=== PATIENT | female | born 1965 | race Two or more races ===

== ENCOUNTER 2021-05-21 02:55 | Inpatient (IN) ==
[2021-05-21] MEDS ORDERED: STAT IV Infusion **Titration per Protocol STA ×2 (02:59→04:54)
[2021-05-21] MEDS ORDERED: FUROSEMIDE 40 MG/4 ML VIAL IV STA (02:59)
[2021-05-21] MEDS ORDERED: NITROGLYCERIN/D5W 100MCG/ML 250 ML IV SCH ×2 (03:00→06:11)
[2021-05-21] MEDS ORDERED: NITROGLYCERIN/D5W 100 MCG/ML BTL ONE (03:01)
[2021-05-21] MEDS ORDERED: FUROSEMIDE 40 MG/4 ML VIAL IV ONE (03:02)
[2021-05-21 03:15] LABS: Hematocrit (blood only) 44.2 % (37-47); Hemoglobin 13.7 g/dL (12.0-16.0); Mean Corpuscular Hemoglobin 26.3 pg (25-34); Mean Platelet Volume 10.3 fL (7.4-10.4); Platelet Count 417 K/uL (130-400); RDW Coefficient of Variation 14.5 % (11.5-14.5); RDW Standard Deviation 44.9 fL (36.4-46.3); White Blood Count 21.85 K/uL (4.8-10.8)
[2021-05-21 03:32] LABS: Alanine Aminotransferase 36 U/L (12-78); Albumin Level 3.9 gm/dl (3.4-5.0); Aspartate Aminotransferase 36 U/L (15-37); BUN Creatinine Ratio 15.5 (10-20); Blood Urea Nitrogen 14 mg/dl (7-18); Calcium 8.9 mg/dl (8.5-10.1); Carbon Dioxide 27 mmol/L (21-32); Chloride 106 mmol/L (98-107); Est GFR (African American) 86.3 ml/min; Est GFR (Non-African American) 74.5 ml/min; Glucose 245 mg/dl (70-99); Magnesium 2.4 mg/dl (1.8-2.4); Potassium 3.7 mmol/L (3.5-5.1); Sodium 140 mmol/L (136-145)
[2021-05-21 03:38] LABS: Albumin Globulin Ratio 0.9 (0.9-2); Alkaline Phosphatase 136 U/L (45-117); Bilirubin,Total 0.2 mg/dl (0.2-1); Globulin 4.3 gm/dl (2.5-4.0); NT Pro B Type Natriuretic Pept 390 pg/ml (0-900); Total Protein 8.2 gm/dl (6.4-8.2); Troponin I 0.056 ng/ml (0-0.045)
[2021-05-21 03:47] LABS: ALC (manual) 10.18 K/uL (1.2-3.4); ANC (manual) 9.57 K/uL (1.4-6.5); Basophils % (manual) 0.9 %; Eosinophils % (manual) 0.9 %; Lymphocytes # (manual) 6.03 K/uL (1.2-3.4); Lymphocytes % (manual) 27.6 %; Metamyelocytes % (manual) 0.9 %; Monocytes # (manual) 1.51 K/uL (0.11-0.59); Monocytes % (manual) 6.9 %; Neutrophils # (manual) 9.57 K/uL (1.4-6.5); Neutrophils % (manual) 43.8 %; RBC Morphology Unremarkable; Reactive Lymphocytes # (manual) 4.15 K/uL
--- NOTE | 2021-05-21 03:47 | Emergency Department Note ---
History of Present Illness General Chief complaint: Shortness of Breath/Dyspnea Stated complaint: SOB Time Seen by Provider: 05/21/21 02:59 Source: family Mode of arrival: EMS Limitations: language barrier and clinical acuity History of Present Illness Provider complaint: respiratory distress Onset (ago): hour(s) Treatments prior to arrival: other This is a 55-year-old female presents emergency department via EMS in acute respiratory distress. EMS reports patient found to have significant distress and was initially 72% on room air. She was immediately placed on a nonrebreather and placed on the stretcher for transport. On arrival here patient still with significant distress and agitation, with diaphoresis, tachypnea, increased work of breathing, 87% on a nonrebreather at 15 L/min. Patient does not speak Danish and due to clinical acuity cannot speak at this time either, family at bedside provides some history. They state no history of asthma or smoking. No history of heart problems. No recent illness or fevers. They states she awoke abruptly approximately an hour ago with trouble breathing and he called 911. He does state she takes medication for high blood pressure and diabetes. He states she stopped taking her medications 3 days ago as she had itching in her hands and thought she was having an allergic reaction. He denies that anyone in their household has been ill recently. He states she has never had trouble breathing like this before. Pt seen during a time of high acuity and national emergency pandemic while wearing PPE. Home Medications Medication Instructions Recorded Confirmed Type atorvastatin 20 mg tablet 20 mg PO DAILY 10/22/20 05/21/21 History hydrochlorothiazide 25 mg tablet 25 mg PO DAILY 10/22/20 05/21/21 History losartan 25 mg tablet 25 mg PO DAILY 10/22/20 05/21/21 History meloxicam 7.5 mg tablet 7.5 mg PO DAILY PRN 10/22/20 05/21/21 History metformin 500 mg tablet 500 mg PO BIDM 10/22/20 05/21/21 History betamethasone dipropionate 0.05 % 1 applic TOPICAL BID #45 g 02/17/21 05/21/21 Rx topical ointment Allergies Allergy/AdvReac Type Severity Reaction Status Date / Time No Known Allergies Allergy Verified 05/21/21 03:07 Past Med/Surg History Social History (Reviewed 05/21/21 @ 07:16 by ADA Patrick Smoking Status: Never smoker Hx Alcohol Use: No Hx Substance Use: No Preferred Language: Obed Communication Tools: IPad Sr. Consultant Required: Yes marital status: Current Living Situation: Spouse current occupational status: unemployed Feels Safe at Home: Yes Safety Concerns: Feels Safe At This Time Review of Systems See HPI for pertinent positives & negatives. Other (clinical acuity) Physical Exam Vital Signs Vital Signs - 24 hr 05/21/21 02:55 05/21/21 03:09 05/21/21 03:10 Pulse Rate 153 H 150 H 146 H Respiratory Rate 46 H 42 H Respiratory Effort / Characteristics Labored Short of Breath Tripoding Respiratory Depth Deep Respiratory Pattern Blood Pressure 233/171 H 189/125 H 177/124 H Blood Pressure Mean 191 146 141 Blood Pressure Position Sitting Pulse Oximetry 87 L 92 92 Oxygen Delivery Method Non-rebreather BiPAP BiPAP Oxygen Flow Rate 15 15 Fraction of Inspired Oxygen 70 70 Sepsis Recent Fever Within 48 Hours No Sepsis New/Unexplained Change in Mental Status N/A Sepsis Action Taken by Nursing Physician Notified Fraction of Inspired Oxygen - Titration 70 Pulse Oximetry Post Tiitration 92 05/21/21 03:15 05/21/21 03:17 05/21/21 03:20 Pulse Rate 140 H 141 H Respiratory Rate 42 H Respiratory Effort / Characteristics Accessory Muscle Use Labored Tripoding Respiratory Depth Deep Respiratory Pattern Blood Pressure 159/115 H 147/112 H Blood Pressure Mean 129 123 Blood Pressure Position Pulse Oximetry 89 L 90 Oxygen Delivery Method BiPAP BiPAP Oxygen Flow Rate Fraction of Inspired Oxygen 70 70 Sepsis Recent Fever Within 48 Hours Sepsis New/Unexplained Change in Mental Status Sepsis Action Taken by Nursing Fraction of Inspired Oxygen - Titration Pulse Oximetry Post Tiitration 05/21/21 03:25 05/21/21 03:30 05/21/21 03:35 Pulse Rate 137 H 135 H 134 H Respiratory Rate 39 H 27 H 33 H Respiratory Effort / Characteristics Respiratory Depth Respiratory Pattern Blood Pressure 130/100 142/106 H 141/97 H Blood Pressure Mean 110 118 111 Blood Pressure Position Pulse Oximetry 91 93 94 Oxygen Delivery Method BiPAP BiPAP BiPAP Oxygen Flow Rate Fraction of Inspired Oxygen 70 70 70 Sepsis Recent Fever Within 48 Hours Sepsis New/Unexplained Change in Mental Status Sepsis Action Taken by Nursing Fraction of Inspired Oxygen - Titration Pulse Oximetry Post Tiitration 05/21/21 03:40 05/21/21 03:45 05/21/21 03:50 Pulse Rate 140 H 130 H 128 H Respiratory Rate 40 H 32 H 31 H Respiratory Effort / Characteristics Spontaneous Short of Breath Tripoding Respiratory Depth Shallow Respiratory Pattern Tachypnea Blood Pressure 134/100 147/95 H 133/88 Blood Pressure Mean 111 112 103 Blood Pressure Position Pulse Oximetry 91 96 95 Oxygen Delivery Method BiPAP BiPAP BiPAP Oxygen Flow Rate Fraction of Inspired Oxygen 70 70 70 Sepsis Recent Fever Within 48 Hours Sepsis New/Unexplained Change in Mental Status Sepsis Action Taken by Nursing Fraction of Inspired Oxygen - Titration Pulse Oximetry Post Tiitration 05/21/21 03:55 05/21/21 04:00 05/21/21 04:10 Pulse Rate 129 H 127 H 127 H Respiratory Rate 30 H 30 H 31 H Respiratory Effort / Characteristics Respiratory Depth Respiratory Pattern Blood Pressure 139/94 126/78 128/94 Blood Pressure Mean 109 94 105 Blood Pressure Position Pulse Oximetry 99 99 99 Oxygen Delivery Method BiPAP BiPAP BiPAP Oxygen Flow Rate Fraction of Inspired Oxygen 70 70 70 Sepsis Recent Fever Within 48 Hours Sepsis New/Unexplained Change in Mental Status Sepsis Action Taken by Nursing Fraction of Inspired Oxygen - Titration Pulse Oximetry Post Tiitration 05/21/21 04:15 05/21/21 04:20 05/21/21 04:25 Pulse Rate 125 H 121 H 121 H Respiratory Rate 26 H 28 H 24 Respiratory Effort / Characteristics Respiratory Depth Respiratory Pattern Blood Pressure 138/93 133/93 117/92 Blood Pressure Mean 108 106 100 Blood Pressure Position Pulse Oximetry 98 99 99 Oxygen Delivery Method BiPAP BiPAP BiPAP Oxygen Flow Rate Fraction of Inspired Oxygen 70 70 70 Sepsis Recent Fever Within 48 Hours Sepsis New/Unexplained Change in Mental Status Sepsis Action Taken by Nursing Fraction of Inspired Oxygen - Titration Pulse Oximetry Post Tiitration 05/21/21 04:30 05/21/21 04:35 05/21/21 04:40 Pulse Rate 120 H 123 H 122 H Respiratory Rate 26 H 30 H 26 H Respiratory Effort / Characteristics Spontaneous Respiratory Depth Normal Respiratory Pattern Tachypnea Blood Pressure 129/98 139/93 151/103 H Blood Pressure Mean 108 108 119 Blood Pressure Position Pulse Oximetry 99 97 96 Oxygen Delivery Method BiPAP BiPAP BiPAP Oxygen Flow Rate Fraction of Inspired Oxygen 70 40 40 Sepsis Recent Fever Within 48 Hours Sepsis New/Unexplained Change in Mental Status Sepsis Action Taken by Nursing Fraction of Inspired Oxygen - Titration Pulse Oximetry Post Tiitration 05/21/21 04:45 05/21/21 04:50 Pulse Rate 123 H 127 H Respiratory Rate 24 18 Respiratory Effort / Characteristics Respiratory Depth Respiratory Pattern Blood Pressure 141/97 H 154/100 H Blood Pressure Mean 111 118 Blood Pressure Position Pulse Oximetry 96 95 Oxygen Delivery Method BiPAP BiPAP Oxygen Flow Rate Fraction of Inspired Oxygen 40 40 Sepsis Recent Fever Within 48 Hours Sepsis New/Unexplained Change in Mental Status Sepsis Action Taken by Nursing Fraction of Inspired Oxygen - Titration Pulse Oximetry Post Tiitration GENERAL: alert, ill appearing, well nourished, severe distress, diaphoretic, pale, agitated, tripoding, holding the facemask of the NRB EYE EXAM: normal conjunctiva, PERRL and EOM's grossly intact OROPHARYNX: no exudate, no erythema, lips, buccal mucosa, and tongue normal and mucous membranes are moist NECK: supple, no nuchal rigidity, no adenopathy, non-tender LUNGS: Normal chest wall mechanics, bilateral rales throughout entire lung carson, significant increased work of breathing, tachypnea HEART: no murmurs, S1 normal and S2 normal, tachycardic in the 150s ABDOMEN: abdomen soft, non-tender, normo-active bowel sounds, no masses, no rebound or guarding. BACK: Back is symmetrical on inspection and there is no deformity, no midline tenderness, no CVA tenderness. SKIN: no rashes and no bruising UPPER EXTREMITIES: upper extremities are grossly normal. FROM, nml pulses b/l. LOWER EXTREMITIES: No pitting edema. FROM, nml pulses b/l. NEURO EXAM: Normal sensorium, cranial nerves II-XII grossly intact, nods and shakes head due to difficulty breathing, no gross weakness of arms, no gross weakness of legs. Gross sensation intact. Course Course 0305: RT called for BIPAP. Nitro drip added. 031: Pt started on BIPAP. Settings quickly titrated up to 16/8. FIO2 backed down from 100%. 0320: Pt starting to appear more comfortable, HR decreasing and BP improved since bipap and nitro gtt started. 0345: Discussed with Dr. Jones. 0352: Discussed with Dr. Mccoy. Per family at bedside translating, pt denies chest pain and states her breathing is improving. 0447: 40%, 12/6 on Bipap and pt more comfortable appearing. Administered Medications Acetaminophen (Acetaminophen 325 Mg Tab) 650 mg PO Q4H PRN PRN Reason: Headache Stop: 06/20/21 09:49 Last Admin: 05/21/21 21:38 Dose: 650 mg Documented by: [id number] Atorvastatin Calcium (Atorvastatin 40 Mg Tab) 80 mg PO DAILY [facility] Stop: 06/20/21 08:59 Last Admin: 05/21/21 09:13 Dose: 80 mg Documented by: [id number] Heparin Sodium/Dextrose (Heparin Sodium/Dextrose) 25,000 units in 500 mls @ 27 mls/hr IV .[id number] [facility]; Protocol Stop: 06/20/21 07:44 Last Admin: 05/22/21 04:17 Dose: 1,350 units/hr, 27 mls/hr Documented by: [id number] Cosigned by: [id number] Titration: 05/22/21 04:17 Dose: 1,350 units/hr, 27 mls/hr Documented by: [id number] Cosigned by: [id number] Titration: 05/21/21 18:59 Dose: 1,350 units/hr, 27 mls/hr Documented by: [id number] Cosigned by: [id number] Titration: 05/21/21 15:21 Dose: 1,350 units/hr, 27 mls/hr Documented by: [id number] Cosigned by: [id number] Admin: 05/21/21 09:15 Dose: 1,200 units/hr, 24 mls/hr Documented by: [id number] Cosigned by: [id number] Insulin Aspart (Insulin Aspart 100 Units/Ml 3 Ml Pen) 0 units SC Q6 [facility] Stop: 06/20/21 11:59 Last Admin: 05/22/21 06:43 Dose: Not Given Documented by: [id number] Cosigned by: [id number] Admin: 05/22/21 00:10 Dose: Not Given Documented by: [id number] Cosigned by: [id number] Admin: 05/21/21 18:20 Dose: Not Given Documented by: [id number] Cosigned by: [id number] Admin: 05/21/21 13:03 Dose: Not Given Documented by: [id number] Cosigned by: [id number] Losartan Potassium (Losartan Potassium 25 Mg Tab) 25 mg PO DAILY [facility] Stop: 06/20/21 08:59 Last Admin: 05/21/21 09:14 Dose: 25 mg Documented by: [id number] Metoprolol Tartrate (Metoprolol Tartrate 25 Mg Tab) 12.5 mg PO BID [facility] Stop: 06/20/21 12:14 Last Admin: 05/21/21 19:53 Dose: 12.5 mg Documented by: [id number] Admin: 05/21/21 13:02 Dose: 12.5 mg Documented by: [id number] Miscellaneous (Order Awaiting Action [Betamethasone Dipropionate 0.05 % Oint]) 1 ea N/A QS [facility] Stop: 06/20/21 07:59 Last Admin: 05/22/21 00:10 Dose: Not Given Documented by: [id number] Admin: 05/21/21 15:36 Dose: Not Given Documented by: [id number] Admin: 05/21/21 09:13 Dose: Not Given Documented by: [id number] Pantoprazole Sodium (Pantoprazole 40 Mg Tab) 40 mg PO QAM [facility] Stop: 06/20/21 08:59 Last Admin: 05/21/21 09:14 Dose: 40 mg Documented by: [id number] Discontinued Medications Aspirin (Aspirin Chew 324 Mg) 324 mg PO NOW STA Stop: 05/21/21 12:46 Last Admin: 05/21/21 13:03 Dose: 324 mg Documented by: [id number] Clopidogrel Bisulfate (Clopidogrel Bisulfate 300 Mg Tab) 300 mg PO NOW STA Stop: 05/21/21 17:30 Last Admin: 05/21/21 18:20 Dose: 300 mg Documented by: [id number] Furosemide (Furosemide 40 Mg/4 Ml Vial) 40 mg IV NOW STA Stop: 05/21/21 03:00 Last Admin: 05/21/21 03:05 Dose: 40 mg Documented by: [id number] Furosemide (Furosemide 40 Mg/4 Ml Vial) Confirm Administered Dose 40 mg IV .STK- MED ONE Stop: 05/21/21 03:03 Last Admin: 05/21/21 03:06 Dose: Not Given Documented by: [id number] Heparin Sodium (Porcine) (Heparin Sod (Porcine) 1000 Unit/Ml) 3,000 units IV NOW ONE Stop: 05/21/21 15:31 Last Admin: 05/21/21 15:36 Dose: 3,000 units Documented by: [id number] Cosigned by: [id number] Nitroglycerin/Dextrose (Nitroglycerin/D5w 100 Mcg/Ml) 250 mls @ 3 mls/hr IV .Q24H [facility]; Protocol Stop: 06/20/21 02:59 Last Titration: 05/21/21 10:18 Dose: 0 mcg/min, 0 mls/hr Documented by: [id number] Titration: 05/21/21 05:10 Dose: 0 mcg/min, 0 mls/hr Documented by: [id number] Titration: 05/21/21 04:47 Dose: 5 mcg/min, 3 mls/hr Documented by: [id number] Titration: 05/21/21 03:53 Dose: 10 mcg/min, 6 mls/hr Documented by: [id number] Titration: 05/21/21 03:11 Dose: 20 mcg/min, 12 mls/hr Documented by: [id number] Admin: 05/21/21 03:05 Dose: 10 mcg/min, 6 mls/hr Documented by: [id number] Cosigned by: [id number] Nitroglycerin/Dextrose (Nitroglycerin/D5w 100 Mcg/Ml) 250 mls @ 3 mls/hr IV .Q24H [facility]; Protocol Stop: 06/20/21 06:10 Last Admin: 05/21/21 10:18 Dose: Not Given Documented by: [id number] Furosemide 20 mg/ Syringe 2 mls @ 4 mls/min IV 0845 ONE Stop: 05/21/21 08:46 Last Admin: 05/21/21 09:13 Dose: 4 mls/min Documented by: [id number] Insulin Human Regular (Insulin Human Regular) 0 units SC ACHS [facility] Stop: 06/20/21 07:29 Last Admin: 05/21/21 09:19 Dose: Not Given Documented by: [id number] Cosigned by: [id number] Miscellaneous (Stat Iv Infusion Titration Per Protocol) 1 ea N/A NOW STA Stop: 05/21/21 03:00 Last Admin: 05/21/21 03:06 Dose: Not Given Documented by: [id number] Miscellaneous (Stat Iv Infusion Titration Per Protocol) 1 ea N/A NOW STA Stop: 05/21/21 04:55 Last Admin: 05/21/21 05:18 Dose: Not Given Documented by: [id number] Nitroglycerin/Dextrose (Nitroglycerin/D5w 100 Mcg/Ml Btl) Confirm Administered Dose 25 mg .ROUTE .STK-MED ONE Stop: 05/21/21 03:02 Last Admin: 05/21/21 03:06 Dose: Not Given Documented by: [id number] Critical Care Time Critical Care Time: Yes Total Critical Care Time: 65 Critical care of 65 min performed to assess and manage high likelihood of life- threatening respiratory failure and acute pulmonary edema, involving labs and imaging performed with assessment to evaluate respiratory failure diagnosis with frequent reassessment. This time includes bedside time, treatment discussions with patient/family/consultants, documentation time and excludes procedure time. Medical Decision Making Differential Diagnosis Differential diagnoses includes but is not limited to pneumonia, bronchitis, COPD/Asthma exacerbation, pneumothorax, pulmonary embolism, congestive heart failure, acute coronary syndrome Medical Records Attestation: I reviewed the patient's medical records. Home Medications Current Medication List: was personally reviewed by me Laboratory Data Attestation: I reviewed the patient's lab results. Result diagrams: 05/22/21 05:13 05/22/21 05:13 Lab Results 05/21/21 05/21/21 05/21/21 Range/Units 03:00 03:00 03:08 WBC 21.85 H (4.8-10.8) K/uL RBC 5.20 (4.2-5.4) M/uL Hgb 13.7 (12.0-16.0) g/dL POC Hgb 15.6 (12.0-16.0) g/dl Hct 44.2 (37-47) % POC Hct 46 (37-47) % MCV 85.0 (80-100) fL MCH 26.3 (25-34) pg MCHC 31.0 L (32-36) g/dL RDW Std Deviation 44.9 (36.4-46.3) fL RDW Coeff of Roam 14.5 (11.5-14.5) % Plt Count 417 H (130-400) K/uL MPV 10.3 (7.4-10.4) fL Neutrophils % (Manual) 43.8 % Lymphocytes % (Manual) 27.6 % Reactive Lymphs % (Man) 19.0 % Monocytes % (Manual) 6.9 % Eosinophils % (Manual) 0.9 % Basophils % (Manual) 0.9 % Metamyelocytes % (Man) 0.9 % Neutrophils # (Manual) 9.57 H (1.4-6.5) K/uL Total Absolute Neuts 9.57 H (1.4-6.5) K/uL Lymphocytes # (Manual) 6.03 H (1.2-3.4) K/uL Reactive Lymphs # 4.15 K/uL Total Abs Lymphocytes 10.18 H (1.2-3.4) K/uL Monocytes # (Manual) 1.51 H (0.11-0.59) K/uL Eosinophils # (Manual) 0.20 (0-0.5) K/uL Basophils # (Manual) 0.20 (0-0.2) K/uL Metamyelocytes # (Man) 0.20 H (0-0) K/uL Blood Smear Review RBC Morphology Unremarkable Specimen Type POC pH (7.35-7.45) POC pCO2 (35-46) mmHg POC pO2 (80-95) mmHg POC HCO3 (19-24) deborah/L POC Base Excess (-9-1.8) deborah/L POC ABG O2 Sat (90-95) % POC Sodium 141 (135-144) mmol/L Sodium 140 (136-145) mmol/L POC Potassium 3.7 (3.3-5.0) mmol/L Potassium 3.7 (3.5-5.1) mmol/L POC Chloride 100 L (101-112) mmol/L Chloride 106 (98-107) mmol/L Carbon Dioxide 27 (21-32) mmol/L POC Total CO2 26 (24-31) mmol/L Anion Gap 7.0 (3-11) POC Anion Gap 20.0 (16-25) mmol/L POC BUN 15 (7-18) mg/dl BUN 14 (7-18) mg/dl Creatinine 0.87 (0.6-1.2) mg/dl POC Creatinine 0.7 (0.6-1.3) mg/dl Est Cr Clr Drug Dosing Not Reportable Est GFR ( Amer) 86.3 ml/min Est GFR (Non-Af Amer) 74.5 ml/min BUN/Creatinine Ratio 15.5 (10-20) Glucose 245 H (70-99) mg/dl POC Glucose (other) 253 H (70-99) mg/dl Calcium 8.9 (8.5-10.1) mg/dl POC Ioniz Calcium Corey 1.24 (1.12-1.32) mmol/l Magnesium 2.4 (1.8-2.4) mg/dl Total Bilirubin 0.2 (0.2-1) mg/dl AST 36 (15-37) U/L ALT 36 (12-78) U/L Alkaline Phosphatase 136 H (45-117) U/L Troponin I 0.056 H* (0-0.045) ng/ml NT-Pro-B Natriuret Pep 390 (0-900) pg/ml Total Protein 8.2 (6.4-8.2) gm/dl Albumin 3.9 (3.4-5.0) gm/dl Globulin 4.3 H (2.5-4.0) gm/dl Albumin/Globulin Ratio 0.9 (0.9-2) COVID-19 Eval Order SARS-CoV-2 (PCR) (Negative) 05/21/21 05/21/21 05/21/21 Range/Units 03:15 03:15 03:53 WBC (4.8-10.8) K/uL RBC (4.2-5.4) M/uL Hgb (12.0-16.0) g/dL POC Hgb 13.9 (12.0-16.0) g/dl Hct (37-47) % POC Hct 41 (37-47) % MCV (80-100) fL MCH (25-34) pg MCHC (32-36) g/dL RDW Std Deviation (36.4-46.3) fL RDW Coeff of Roma (11.5-14.5) % Plt Count (130-400) K/uL MPV (7.4-10.4) fL Neutrophils % (Manual) % Lymphocytes % (Manual) % Reactive Lymphs % (Man) % Monocytes % (Manual) % Eosinophils % (Manual) % Basophils % (Manual) % Metamyelocytes % (Man) % Neutrophils # (Manual) (1.4-6.5) K/uL Total Absolute Neuts (1.4-6.5) K/uL Lymphocytes # (Manual) (1.2-3.4) K/uL Reactive Lymphs # K/uL Total Abs Lymphocytes (1.2-3.4) K/uL Monocytes # (Manual) (0.11-0.59) K/uL Eosinophils # (Manual) (0-0.5) K/uL Basophils # (Manual) (0-0.2) K/uL Metamyelocytes # (Man) (0-0) K/uL Blood Smear Review RBC Morphology Specimen Type Arterial POC pH 7.30 L (7.35-7.45) POC pCO2 48 H (35-46) mmHg POC pO2 97 H (80-95) mmHg POC HCO3 23 (19-24) deborah/L POC Base Excess -3.0 (-9-1.8) deborah/L POC ABG O2 Sat 97.0 H (90-95) % POC Sodium 137 (135-144) mmol/L Sodium (136-145) mmol/L POC Potassium 3.6 (3.3-5.0) mmol/L Potassium (3.5-5.1) mmol/L POC Chloride (101-112) mmol/L Chloride (98-107) mmol/L Carbon Dioxide (21-32) mmol/L POC Total CO2 25 (24-31) mmol/L Anion Gap (3-11) POC Anion Gap (16-25) mmol/L POC BUN (7-18) mg/dl BUN (7-18) mg/dl Creatinine (0.6-1.2) mg/dl POC Creatinine (0.6-1.3) mg/dl Est Cr Clr Drug Dosing Est GFR ( Amer) ml/min Est GFR (Non-Af Amer) ml/min BUN/Creatinine Ratio (10-20) Glucose (70-99) mg/dl POC Glucose (other) (70-99) mg/dl Calcium (8.5-10.1) mg/dl POC Ioniz Calcium Corey (1.12-1.32) mmol/l Magnesium (1.8-2.4) mg/dl Total Bilirubin (0.2-1) mg/dl AST (15-37) U/L ALT (12-78) U/L Alkaline Phosphatase (45-117) U/L Troponin I (0-0.045) ng/ml NT-Pro-B Natriuret Pep (0-900) pg/ml Total Protein (6.4-8.2) gm/dl Albumin (3.4-5.0) gm/dl Globulin (2.5-4.0) gm/dl Albumin/Globulin Ratio (0.9-2) COVID-19 Eval Order Covid19 at [facility] SARS-CoV-2 (PCR) NEGATIVE (Negative) Imaging Data Radiologist's Impression: Chest X-Ray 05/21/21 02:59 XR chest 1V portable CLINICAL HISTORY: Shortness of breath. COMPARISON STUDY: No previous studies for comparison. FINDINGS: Lung volumes are normal. There is no pneumothorax. Mild enlargement of the cardiac silhouette is noted. There may be small bilateral pleural effusions. Interstitial thickening and extensive bilateral perihilar and bibasilar opacities. IMPRESSION: 1. Interstitial thickening consistent with pulmonary edema. Perihilar and bibasilar opacities which could reflect alveolar edema or superimposed pneumonia. Radiographic follow up is recommended to ensure resolution. 2. Suspected small bilateral pleural effusions. ACT 112: Negative or not required by law. Electronically signed by: Tim Dueñas M.D. 05/21/2021 6:53 AM ECG Data Attestation: I personally reviewed and interpreted this ECG as follows: Indication: + SOB/dyspnea Rate (beats per minute): 145 Rhythm: + sinus tachycardia ECG Intervals/blocks: + Left bundle branch block and + Prolonged QT ECG [place]: + Normal ECG ST segments: + ST elevation ECG Findings: + Q waves Additional Comments: EKG #2 at 0346 Sinus tachycardia at 132, normal axis, left bundle branch block, QTC appears shorter, Q waves still noted anteroseptal with concurrent ST elevation which appears to be from the left bundle branch block MDM Narrative This is a 55-year-old female who presents in what clinically appears to be flash pulmonary edema with respiratory failure and hypoxia. Patient transitioned onto BiPAP, nitro drip started, patient given Lasix once 2nd IV established. Patient slowly began to improve although I stood at the bedside for the 1st half an hour to monitor her condition given the severity of her initial presentation and concern for possible need for a definitive airway or hemodynamic instability. Patient slowly began to improve with initial interventions as heart rate began to decrease as did respiratory rate, slowly work of breathing allowed patient to sit back against the stretcher instead of tripoding. RT did make significant adjustments at bedside throughout the 1st 45 minutes regarding her FiO2 and BiPAP settings. Initial [id number] Chem-8 reassuring, EKG abnormal. Given no prior cardiac history per family and report of patient having stopped taking medications, my initial concern was for uncontrolled hypertension which led to hypertensive emergency and the acute pulmonary edema causing her difficulty breathing. I was unable to find an old EKG for comparison and use and contacted the [facility] hospitalist to investigate through their system. They had no old EKG for comparison either. Due to abnormal EKG because of her presentation and lab result of elevated troponin, I did discuss case with the on-call intervent ional software development specialist. Given patient improved at bedside and denied chest pain on subsequent rechecks, he felt we could wait to perform any additional cardiac intervention although likely she may still need cardiac catheterization. Patient with multiple risk factors for coronary artery disease. Patient's Covid swab was negative, and no recent illness to suggest occult evolving pneumonia. Patient's family kept updated at bedside on results and plan and was able to convey these to the patient while she was on BiPAP. Case was discussed with hospitalist additionally who will admit the patient to the ICU. An order was placed for continuous cardiac monitoring. The monitor shows a rate of _145_ with _sinus tachycardia__ rhythm. Impression & Plan Respiratory failure, Acute pulmonary edema, Hypertensive emergency, Elevated troponin I level, LBBB (left bundle branch block) Discharge Plan Visit Data Chief Complaint: Shortness of Breath/Dyspnea Stated Complaint: SOB Discharge Problem: Respiratory failure, Acute pulmonary edema, Hypertensive emergency, Elevated troponin I level, LBBB (left bundle branch block) Patient Disposition: Admitted As Inpatient Condition: Good Discharge Instructions Interventions: ED Discharge Assessment Last Done: 05/21/21 05:38
[2021-05-21] MEDS ORDERED: ICU PROTOCOL FOR HYPERGLYCEMIA PRN (06:11)
--- NOTE | 2021-05-21 06:54 | XRay Report ---
XR chest 1V portable CLINICAL HISTORY: Shortness of breath. COMPARISON STUDY: No previous studies for comparison. FINDINGS: Lung volumes are normal. There is no pneumothorax. Mild enlargement of the cardiac silhouet te is noted. There may be small bilateral pleural effusions. Interstitial thickening and extensive bi lateral perihilar and bibasilar opacities. IMPRESSION: 1. Interstitial thickening consistent with pulmonary edema. Perihilar and bibasilar opacities which c ould reflect alveolar edema or superimposed pneumonia. Radiographic follow up is recommended to ensur e resolution. 2. Suspected small bilateral pleural effusions. ACT 112: Negative or not required by law. Electronically signed by: Tim Dueñas M.D. 05/21/2021 6:53 AM
[2021-05-21] MEDS ORDERED: Nursing to Pharmacy Communication SCH (07:00)
[2021-05-21] MEDS ORDERED: GLUCOSE 10 TABS/TUBE PO PRN (07:15)
[2021-05-21] MEDS ORDERED: CARBOHYDRATES FOR HYPOGLYCEMIA PO PRN (07:15)
[2021-05-21] MEDS ORDERED: GLUCAGON FOR INJ 1 MG VIAL IM PRN (07:15)
[2021-05-21] MEDS ORDERED: DEXTROSE 50% 50 ML SYRINGE IV PRN (07:15)
[2021-05-21] MEDS ORDERED: GLUCOSE 40% GEL 15 GM TUBE PO PRN (07:15)
[2021-05-21] MEDS ORDERED: INSULIN HUMAN REGULAR SC SCH (07:30)
[2021-05-21] MEDS ORDERED: Heparin IV Adult Wt-Based Standard *NO* Bolus Protocol IV SCH (08:00)
--- NOTE | 2021-05-21 08:15 | History and Physical Report ---
DATE OF ADMISSION: 05/21/2021. CHIEF COMPLAINT: Shortness of breath. HISTORY OF PRESENT ILLNESS: A 55-year-old female, she is from [facility]. She speaks Beth. . Son is in the room helping with her H and P. Comes here because of shortness of breath. The patient has past medical history significant for hypertension, hyperlipidemia, diabetes. The patient went to sleep okay, but she woke in the middle of the night with acute shortness of breath, could not breathe, and lot of cough and had some chest discomfort and some blurred vision and she was brought into the ER. When she came into the ER, she was very restless and she was placed on BiPAP, at one pont the ER physician thought of intubating her. She was tachycardic and systolic blood pressure was in 230s. Could not get Initial EKG, but repeat EKG showed some bundle-branch block. We do not have old EKG to compare and troponin was slightly elevated at 0.05 and chest x-ray showed bilateral pulmonary congestion and pulmonary edema. ER gave a dose of Lasix and started on nitro drip. With the blood pressure improving, her symptoms improved. She is still on BiPAP. She is feeling better. Chest pain has resolved. The ER physician also talked to the vending enterprises supervisor nutrition educator, , with EKG findings, as the patient's chest pain improved no plan for emergent cardiac catheterization, but the patient may end up needing cardiac catheterization during this hospitalization. The patient is currently resting comfortably. Denies any headache, denies any blurred visions. Had some itchiness in the ear earlier that has resolved. No runny nose, no sore throat, no fevers. Appetite is okay. Currently, no chest pain. Shortness of breath is improving. No nausea, no abdominal pain. Normal bowel and bladder movements. Stool was somewhat loose in the morning. She described some swelling in the legs yesterday. The patient stopped taking all her medications three days ago because she was feeling dry hands and itchiness, the topical cream was not working and she thought the medications are causing her symptoms and when she stopped the medications, the itchiness is somewhat better improved.N recent change in medications. ALLERGIES: No known drug allergies. PAST MEDICAL HISTORY: As mentioned above. PAST SURGICAL HISTORY: Colonoscopy. MEDICATIONS: The patient is on atorvastatin 20 mg p.o. daily, betamethasone topical ointment b.i.d., hydrochlorothiazide 25 mg p.o. daily, losartan 25 mg p.o. daily, meloxicam 7.5 mg p.o. daily p.r.n., metformin 500 mg p.o. b.i.d. FAMILY HISTORY: Significant for no family history on file. SOCIAL HISTORY: , lives with the family. No smoking or substance abuse. REVIEW OF SYSTEMS: As per HPI. Rest of the review of systems is negative. PHYSICAL EXAMINATION: GENERAL: The patient is obese, currently not in acute distress. VITAL SIGNS: Temperature afebrile, pulse 127, respiratory rate 26, blood pressure 164/99, currently on oxygen 96% on BiPAP. HEENT: Pupils, extraocular muscles intact. NECK: No JVD, no neck masses. CARDIOVASCULAR: S1 and S2 heard. Tachycardia. No murmurs. RESPIRATORY SYSTEM: Normal AP diameter. No accessory muscle use. Bilateral crackles. No rhonchi heard. No wheezing. ABDOMEN: Soft, bowel sounds present, nontender, no distention. CENTRAL NERVOUS SYSTEM: Alert and awake. Obeys commands. Moves extremities. EXTREMITIES: Trace edema, no erythema seen. LABORATORY DATA: WBC 21.8, hemoglobin 13.7, hematocrit 44.2, platelets 417. Sodium 140, potassium 3.7, chloride 106, bicarb 37, BUN 14, creatinine 0.8, serum glucose 245, calcium 8.9, magnesium 2.4, total bilirubin 0.2, AST 36, ALT 36, alkaline phosphatase 136. Troponin 1 of 0.056. BNP 390. SARS-CoV-2 PCR negative. IMAGING DATA: Chest x-ray, bilateral pulmonary edema. EKG: Sinus tachycardia at a rate of 132, possible left atrial enlargement, nonspecific intraventricular conduction block, possible anterolateral infarct. ASSESSMENT AND PLAN: This is a 55-year-old female, who presents with acute shortness of breath. 1. Acute shortness of breath: Most likely secondary to hypertensive emergency, flash pulmonary edema. Received a dose of IV Lasix. The patient stopped her medication 3 days ago because of itchiness in the hand, she thought medication could be contributing to it. Currently, received a dose of iv Lasix and started on BiPAP and nitro drip. Will continue iv Lasix 40mg daily for now. The patient is feeling better. Chest pain improved, shortness of breath improving. Will continue nitro drip. Follow the serial enzymes, cardiac enzymes, echocardiogram, and closely monitor in the ICU and consult cardiology for further recommendations. 2. Hypertensive emergency: On nitro drip. Continue her home losartan in the morning. Holding her hydrochlorothiazide. We will adjust the blood pressure medications. Await cardiac input. 3. Mild elevation of troponin.Chest discomfort -improved now. Ekg changes. No old ekg to compare. Mostly demand ischemia. Will follow serial CE and echo. Await cardiology inputs. 4. Leukocytosis: Could be reactive. Will follow the repeat labs. If any concerns, will start antibiotics and get the cultures. 5. Diabetes: Hold her metformin. Placed on insulin sliding scale. Follow the blood sugars. Follow HbA1c levels. 6. Hyperlipidemia: Continue statin. 7. Deep venous thrombosis prophylaxis: Will place on Lovenox. DISPOSITION: Closely monitor in the ICU. Level 1 full code. Expect to discharge home and follow with family doctor. Job ID: [id number] [facility]
[2021-05-21] MEDS ORDERED: FUROSEMIDE 20 MG in SYRINGE 0 ML IV ONE (08:45)
[2021-05-21] MEDS ORDERED: ATORVASTATIN 20 MG TAB PO SCH (09:00)
[2021-05-21] MEDS ORDERED: ENOXAPARIN INJ 40 MG/0.4 ML SYR SQ SCH (09:00)
[2021-05-21] MEDS ORDERED: FUROSEMIDE 40 MG/4 ML VIAL IV SCH (09:00)
[2021-05-21] MEDS ORDERED: FUROSEMIDE 40 MG in SYRINGE 0 ML IV SCH (09:00)
[2021-05-21] MEDS: ATORVASTATIN 40 MG TAB PO SCH (09:13)
[2021-05-21] MEDS: PANTOprazole 40 MG TAB PO SCH (09:14)
[2021-05-21] MEDS: LOSARTAN POTASSIUM 25 MG TAB PO SCH (09:14)
[2021-05-21] MEDS: HEPARIN SODIUM/DEXTROSE 25,000 UNITS/500 ML BAG IV SCH (09:15)
--- NOTE | 2021-05-21 09:26 | Critical Care Consultation ---
Date of Consultation May 21, 2021 Assessment & Plan (1) Acute pulmonary edema: Impression: 55-year-old female presents to the ICU with pulmonary edema on BiPap. Neuro - No acute concerns. CAM ICU: Negative Cardiac - TYPE II NSTEMI Secondary to Hypertensive Emergency - Cardiology consulted. Appreciate their recommendations. - Troponin increased from 0.056 on admission to 1.36 this morning. - Statin increased from atorvastatin 20mg po daily to atorvastatin 80mg po daily - Consider initiation of beta alvarado, however awaiting further recommendations/plan from cardiology re: possible intervention? - Follow serial cardiac enzymes. - TTE pending. - Continue continuous cardiac monitoring. Hypertensive emergency - Hx of hypertension w/ anti-hypertensive home regimen consisting of losartan and HCTZ - Patient reports that she has not taken BP medications in 3 days as she thought it was contributing to her dry skin - Currently hemodynamically stable; BP 111/74. Will continue to monitor. - Restart losartan. Hold HCTZ. Respiratory - Pulmonary edema - CXR with small bilateral pleural effusions. Interstitial thickening and extensive bilateral perihilar and bibasilar opacities. - Lungs with diffuse crackles. BiPap discontinued this morning. She is maintaining oxygen saturation on 2L supplemental O2 via NC. No respiratory distress. - Encourage IS use - Lasix 40mg IV provided in ER. Additional 20mg IV administered this AM. - Continuous monitoring on pulse ox GI - - No acute concerns. - GI ppx with pantoprazole 40mg po daily - Currently NPO except sips and chips pending further cardiology recommendations. RENAL/LYTES - - Creatinine within normal limits - Routine BMPs and replete electrolytes as indicated - - No acute concerns - Most recently, I: 15.55, O: 1350, Net: -1334.45 - Continue strict I's and O's ENDO - - History of DM. Hold home metformin. Continue insulin management with Novolog. ICU hyperglycemic protocol. - No history of thyroid disease HEME - - No acute concerns. ID - - Leukocytosis, possibly reactive. WBC on admission 21.85. Will continue to monitor CBC. - Patient remains afebrile. - Defer abx therapy at this time. LINES/IV ACCESS - Peripheral IVs DVT PPX - Heparin GI PPX: Protonix (2) Hypertension: (3) Diabetes: (4) Hyperlipemia: Supervising Physician Co-Signing Physician Notes Dr. Hollis Was the resident-physician during care of patient. I separately evaluated patient for cordon portions of the history and the exam. I was present during the critical portion of medical decision making, and I discussed the case with the resident. I generally agree with the findings and plan except for any additions/exceptions noted. 55-year-old [place] female residing in [place] since last 5 years with past medical history of hypertension noncompliant with medication since last 2 days presented to the hospital with complaints of shortness of breath Patient was found to be in hypertensive emergency with pulmonary edema. Patient was started on nicardipine drip and sent to ICU for further management Nicardipine drip has since been discontinued. Patient was initially on BiPAP. At the time of examination on 2 L nasal cannula saturating 95% Patient speaks Beth and [place]. I was able to converse with her in [place] At the time of examination patient states she is feeling much better after coming to the hospital. Does complain of some mild headache. Shortness of breath is improved. Denies any chest pain right now no chest tightness. No nausea vomiting. No abdominal pain. No fever chills at home. Constitutional: No acute distress HEENT: EOMI, PERRLA Respiratory system: Decreased entry bilaterally, no wheeze, normal, positive crackles bilateral lower lobes CVS: S1-S2 positive, no murmurs or gallops, distant heart sounds Abdomen: Soft, nontender, nondistended, positive bowel sounds x4, obese Extremities: +2 pulses bilaterally radialis/ dorsalis pedis, no cyanosis, no edema, patient does have scaling dry skin on both palms Neuro: Awake alert oriented x3 Psych: Normal mood and affect G/U: No Moimn --Prophylaxis VTE: Heparin drip GI: Protonix Lines: Peripheral Diet: N.p.o. Plan: In/out: -584 Continue with IV diuretics to keep the patient negative balance. Follow-up 2D echo to look at the ejection fraction. Patient does have wide-complex on the EKG but it seems to be sinus rhythm. No ST-T wave changes appreciated. Type II NV. Given the wide-complex on the EKG I will start the patient on heparin drip, increase the statin to 80, continue with losartan We will consider giving Plavix/aspirin based on cardiology's interpretation for further intervention from their side if needed. Hold hydrochlorothiazide. We will add beta-blockers once the patient is more negative balance Continue with incentive spirometry as well as BiPAP as needed Give another 20 mg of Lasix right now. We will consider another 20 mg in evening I have personally spent 53 minutes of critical care time in the direct management of this patient. This is a life/limb threatening event. This includes time spent evaluating patient, direct bedside care, chart review, placing orders, interpretation of diagnostic studies, discussion with consultants, patient, and/or family members regarding treatment decisions, as well as other required patient management activities. This time is exclusive of all separately billable procedures, and teaching time and separate from and in addition to any other critical care service time. History of Present Illness Attending Physician: Broderick Aguilar MD History of Present Illness Taj Laura is a 55 yo female with PMHx of HTN, hyperlipidemia, and DM, who presented to the hospital on 05/21/21 with complaint of shortness of breath. Patient is from [facility] and speaks Beth. History is obtained through records as well as by Dr. Ojeda, lookback coordinator. Patient has 3 children (one who lives in [facility], one who lives in [place], and one who lives here in [place]). Patient went to bed/sleep last night at baseline but awoke in the middle of the night with acute shortness of breath, cough, and chest discomfort. Upon arrival to the ER, patient was tachycardic with hypertension and SBP in 230s. Troponin was slightly elevated at 0.056 and CXR showed bilateral pulmonary congestion and pulmonary edema. She was placed on BiPap and was feeling better. Patient also received 40mg IV Lasix and a nitro drip; the nitro drip has since been discontinued. Chest pain has resolved. Patient currently resting comfortably; she is off the BiPap and is currently on 2L O2 via NC. She does report a mild headache and dryness in the mouth. Denies CP, nausea, vomiting, dizziness, or current SOB. States that she feels much better than when she came in. Additionally, patient does note that she has not taken her home BP medications for 3 days because she felt that the BP medication was causing dryness on her palms (which she has been seeing dermatology for). She has received her COVID vaccines. There is no family history of heart disease. Allergies Allergy/AdvReac Type Severity Reaction Status Date / Time No Known Allergies Allergy Verified 05/21/21 03:07 Home Medications Medication Instructions Recorded Confirmed Type atorvastatin 20 mg tablet 20 mg PO DAILY 10/22/20 05/21/21 History hydrochlorothiazide 25 mg tablet 25 mg PO DAILY 10/22/20 05/21/21 History losartan 25 mg tablet 25 mg PO DAILY 10/22/20 05/21/21 History meloxicam 7.5 mg tablet 7.5 mg PO DAILY PRN 10/22/20 05/21/21 History metformin 500 mg tablet 500 mg PO BIDM 10/22/20 05/21/21 History betamethasone dipropionate 0.05 % 1 applic TOPICAL BID #45 g 02/17/21 05/21/21 Rx topical ointment Patient History Social History Smoking Status: Never smoker Hx Alcohol Use: No Hx Substance Use: No Preferred Language: [facility] [employer] Process Coordinator Required: Yes marital status: Current Living Situation: Spouse current occupational status: unemployed Feels Safe at Home: Yes Safety Concerns: Feels Safe At This Time Review of Systems Review of Systems: See HPI Physical Exam Physical Exam: GENERAL: No acute distress. Well developed and well nourished. Vital signs reviewed as above. EYES: EOMI. Anicteric sclerae. HENT: Moist mucous membranes. RESPIRATORY: Positive crackles bilaterally. CARDIOVASCULAR: Distant heart sounds. S1/S2 regular. Regular rate and rhythm. No murmur appreciated. 2+ pedal pulses bilaterally. ABDOMEN: Soft, non-tender and non-distended. Normal bowel sounds. EXTREMITIES: No edema. Non-tender. SKIN: Warm. Dryness and scaling on bilateral palms. NEUROLOGIC: A/O x3. No focal neurological deficits. PSYCHIATRIC: Cooperative. Appropriate mood and affect. Results & Data Results & Data ([facility]) Vital Signs (Past 12 Hours) Vital Signs Temp Pulse Pulse Resp BP BP Pulse Ox 05/21/21 07:34 104 H 22 95 05/21/21 06:20 36.9 C 111 H 26 H 111/74 96 05/21/21 06:13 110 H 05/21/21 06:11 05/21/21 06:01 111 H 29 H 99 05/21/21 06:00 107 H 23 111/74 95 05/21/21 05:35 111 H 23 145/94 H 97 05/21/21 05:15 120 H 25 H 141/87 H 97 05/21/21 05:05 120 H 24 134/89 95 05/21/21 05:00 127 H 26 H 164/99 H 96 05/21/21 04:55 127 H 24 147/103 H 97 05/21/21 04:50 127 H 18 154/100 H 95 05/21/21 04:45 123 H 24 141/97 H 96 05/21/21 04:40 122 H 26 H 151/103 H 96 05/21/21 04:35 123 H 30 H 139/93 97 05/21/21 04:30 120 H 26 H 129/98 99 05/21/21 04:25 121 H 24 117/92 99 05/21/21 04:20 121 H 28 H 133/93 99 05/21/21 04:15 125 H 26 H 138/93 98 05/21/21 04:10 127 H 31 H 128/94 99 05/21/21 04:00 127 H 30 H 126/78 99 05/21/21 03:55 129 H 30 H 139/94 99 05/21/21 03:50 128 H 31 H 133/88 95 05/21/21 03:45 130 H 32 H 147/95 H 96 05/21/21 03:40 140 H 40 H 134/100 91 05/21/21 03:35 134 H 33 H 141/97 H 94 05/21/21 03:30 135 H 27 H 142/106 H 93 05/21/21 03:25 137 H 39 H 130/100 91 05/21/21 03:20 141 H 42 H 147/112 H 90 05/21/21 03:15 140 H 159/115 H 89 L 05/21/21 03:10 146 H 177/124 H 92 05/21/21 03:09 150 H 42 H 189/125 H 92 05/21/21 02:55 153 H 46 H 233/171 H 87 L Pulse Ox 05/21/21 07:34 05/21/21 06:20 05/21/21 06:13 05/21/21 06:11 95 05/21/21 06:01 05/21/21 06:00 05/21/21 05:35 09/02/21 05:15 05/21/21 05:05 05/21/21 05:00 05/21/21 04:55 05/21/21 04:50 05/21/21 04:45 05/21/21 04:40 05/21/21 04:35 05/21/21 04:30 05/21/21 04:25 05/21/21 04:20 05/21/21 04:15 05/21/21 04:10 05/21/21 04:00 05/21/21 03:55 05/21/21 03:50 05/21/21 03:45 05/21/21 03:40 05/21/21 03:35 05/21/21 03:30 05/21/21 03:25 05/21/21 03:20 05/21/21 03:15 05/21/21 03:10 05/21/21 03:09 05/21/21 02:55 Laboratory Results 05/21/21 05/21/21 05/21/21 Range/Units 09:18 06:47 06:39 WBC (4.8-10.8) K/uL RBC (4.2-5.4) M/uL Hgb (12.0-16.0) g/dL Hct (37-47) % MCV (80-100) fL MCH (25-34) pg MCHC (32-36) g/dL RDW Std Deviation (36.4-46.3) fL RDW Coeff of Roma (11.5-14.5) % Plt Count (130-400) K/uL MPV (7.4-10.4) fL Neutrophils % (Manual) % Lymphocytes % (Manual) % Reactive Lymphs % (Man) % Monocytes % (Manual) % Eosinophils % (Manual) % Basophils % (Manual) % Metamyelocytes % (Man) % Neutrophils # (Manual) (1.4-6.5) K/uL Total Absolute Neuts (1.4-6.5) K/uL Lymphocytes # (Manual) (1.2-3.4) K/uL Reactive Lymphs # K/uL Total Abs Lymphocytes (1.2-3.4) K/uL Monocytes # (Manual) (0.11-0.59) K/uL Eosinophils # (Manual) (0-0.5) K/uL Basophils # (Manual) (0-0.2) K/uL Metamyelocytes # (Man) (0-0) K/uL Blood Smear Review RBC Morphology Sodium (136-145) mmol/L Potassium (3.5-5.1) mmol/L Chloride (98-107) mmol/L Carbon Dioxide (21-32) mmol/L Anion Gap (3-11) BUN (7-18) mg/dl Creatinine (0.6-1.2) mg/dl Est Cr Clr Drug Dosing Est GFR ( Amer) ml/min Est GFR (Non-Af Amer) ml/min BUN/Creatinine Ratio (10-20) Glucose (70-99) mg/dl POC Glucose 110 H 124 H (70-99) mg/dl Calcium (8.5-10.1) mg/dl Magnesium (1.8-2.4) mg/dl Total Bilirubin (0.2-1) mg/dl AST (15-37) U/L ALT (12-78) U/L Alkaline Phosphatase (45-117) U/L Troponin I 1.360 H* (0-0.045) ng/ml NT-Pro-B Natriuret Pep (0-900) pg/ml Total Protein (6.4-8.2) gm/dl Albumin (3.4-5.0) gm/dl Globulin (2.5-4.0) gm/dl Albumin/Globulin Ratio (0.9-2) Nasal Screen MRSA (PCR) (Negative) COVID-19 Eval Order SARS-CoV-2 (PCR) (Negative) 05/21/21 05/21/21 05/21/21 Range/Units 06:11 03:15 03:15 WBC (4.8-10.8) K/uL RBC (4.2-5.4) M/uL Hgb (12.0-16.0) g/dL Hct (37-47) % MCV (80-100) fL MCH (25-34) pg MCHC (32-36) g/dL RDW Std Deviation (36.4-46.3) fL RDW Coeff of Roma (11.5-14.5) % Plt Count (130-400) K/uL MPV (7.4-10.4) fL Neutrophils % (Manual) % Lymphocytes % (Manual) % Reactive Lymphs % (Man) % Monocytes % (Manual) % Eosinophils % (Manual) % Basophils % (Manual) % Metamyelocytes % (Man) % Neutrophils # (Manual) (1.4-6.5) K/uL Total Absolute Neuts (1.4-6.5) K/uL Lymphocytes # (Manual) (1.2-3.4) K/uL Reactive Lymphs # K/uL Total Abs Lymphocytes (1.2-3.4) K/uL Monocytes # (Manual) (0.11-0.59) K/uL Eosinophils # (Manual) (0-0.5) K/uL Basophils # (Manual) (0-0.2) K/uL Metamyelocytes # (Man) (0-0) K/uL Blood Smear Review RBC Morphology Sodium (136-145) mmol/L Potassium (3.5-5.1) mmol/L Chloride (98-107) mmol/L Carbon Dioxide (21-32) mmol/L Anion Gap (3-11) BUN (7-18) mg/dl Creatinine (0.6-1.2) mg/dl Est Cr Clr Drug Dosing Est GFR ( Amer) ml/min Est GFR (Non-Af Amer) ml/min BUN/Creatinine Ratio (10-20) Glucose (70-99) mg/dl POC Glucose (70-99) mg/dl Calcium (8.5-10.1) mg/dl Magnesium (1.8-2.4) mg/dl Total Bilirubin (0.2-1) mg/dl AST (15-37) U/L ALT (12-78) U/L Alkaline Phosphatase (45-117) U/L Troponin I (0-0.045) ng/ml NT-Pro-B Natriuret Pep (0-900) pg/ml Total Protein (6.4-8.2) gm/dl Albumin (3.4-5.0) gm/dl Globulin (2.5-4.0) gm/dl Albumin/Globulin Ratio (0.9-2) Nasal Screen MRSA (PCR) Negative (Negative) COVID-19 Eval Order Covid19 at [facility] SARS-CoV-2 (PCR) NEGATIVE (Negative) 05/21/21 05/21/21 Range/Units 03:00 03:00 WBC 21.85 H (4.8-10.8) K/uL RBC 5.20 (4.2-5.4) M/uL Hgb 13.7 (12.0-16.0) g/dL Hct 44.2 (37-47) % MCV 85.0 (80-100) fL MCH 26.3 (25-34) pg MCHC 31.0 L (32-36) g/dL RDW Std Deviation 44.9 (36.4-46.3) fL RDW Coeff of Roma 14.5 (11.5-14.5) % Plt Count 417 H (130-400) K/uL MPV 10.3 (7.4-10.4) fL Neutrophils % (Manual) 43.8 % Lymphocytes % (Manual) 27.6 % Reactive Lymphs % (Man) 19.0 % Monocytes % (Manual) 6.9 % Eosinophils % (Manual) 0.9 % Basophils % (Manual) 0.9 % Metamyelocytes % (Man) 0.9 % Neutrophils # (Manual) 9.57 H (1.4-6.5) K/uL Total Absolute Neuts 9.57 H (1.4-6.5) K/uL Lymphocytes # (Manual) 6.03 H (1.2-3.4) K/uL Reactive Lymphs # 4.15 K/uL Total Abs Lymphocytes 10.18 H (1.2-3.4) K/uL Monocytes # (Manual) 1.51 H (0.11-0.59) K/uL Eosinophils # (Manual) 0.20 (0-0.5) K/uL Basophils # (Manual) 0.20 (0-0.2) K/uL Metamyelocytes # (Man) 0.20 H (0-0) K/uL Blood Smear Review RBC Morphology Unremarkable Sodium 140 (136-145) mmol/L Potassium 3.7 (3.5-5.1) mmol/L Chloride 106 (98-107) mmol/L Carbon Dioxide 27 (21-32) mmol/L Anion Gap 7.0 (3-11) BUN 14 (7-18) mg/dl Creatinine 0.87 (0.6-1.2) mg/dl Est Cr Clr Drug Dosing Not Reportable Est GFR ( Amer) 86.3 ml/min Est GFR (Non-Af Amer) 74.5 ml/min BUN/Creatinine Ratio 15.5 (10-20) Glucose 245 H (70-99) mg/dl POC Glucose (70-99) mg/dl Calcium 8.9 (8.5-10.1) mg/dl Magnesium 2.4 (1.8-2.4) mg/dl Total Bilirubin 0.2 (0.2-1) mg/dl AST 36 (15-37) U/L ALT 36 (12-78) U/L Alkaline Phosphatase 136 H (45-117) U/L Troponin I 0.056 H* (0-0.045) ng/ml NT-Pro-B Natriuret Pep 390 (0-900) pg/ml Total Protein 8.2 (6.4-8.2) gm/dl Albumin 3.9 (3.4-5.0) gm/dl Globulin 4.3 H (2.5-4.0) gm/dl Albumin/Globulin Ratio 0.9 (0.9-2) Nasal Screen MRSA (PCR) (Negative) COVID-19 Eval Order SARS-CoV-2 (PCR) (Negative) Resident Activity Tracking Resident Involvement: Resident Care Provided Care Provided: Adult Hospital Medicine
[2021-05-21 10:53] LABS: iSTAT Creatinine 0.7 mg/dl (0.6-1.3); iSTAT Hemoglobin 15.6 g/dl (12.0-16.0); iSTAT Ionized Calcium 1.24 mmol/l (1.12-1.32); iSTAT Potassium 3.7 mmol/L (3.3-5.0)
[2021-05-21 11:01] LABS: iSTAT Arterial Blood Gas HCO3 23 meg/L (19-24); iSTAT Arterial Blood Gas pCO2 48 mmHg (35-46); iSTAT Arterial Blood Gas pO2 97 mmHg (80-95); iSTAT Carbon Dioxide 25 mmol/L (24-31); iSTAT Hematocrit 41 % (37-47); iSTAT Hemoglobin 13.9 g/dl (12.0-16.0); iSTAT Potassium 3.6 mmol/L (3.3-5.0); iSTAT Sodium 137 mmol/L (135-144)
[2021-05-21 11:02] LABS: iSTAT Sample Type Arterial
--- NOTE | 2021-05-21 11:57 | Billing Data ---
Date of Service May 21, 2021 Coding Level of Care Code Critical Care 1st 30-74 mins Time Spent (min) 53
[2021-05-21] MEDS ORDERED: ASPIRIN CHEW 324 MG PO STA (12:45)
--- NOTE | 2021-05-21 12:45 | Cardiology Consultation ---
Date of Consultation May 21, 2021 Assessment & Plan (1) Acute on chronic heart failure with preserved ejection fraction (HFpEF): (2) Hypertensive emergency: (3) Non-ST elevation (NSTEMI) myocardial infarction: (4) LBBB (left bundle branch block): 55-year-old female presents the emergency department with flash pulmonary edema in the setting of hypertensive emergency. Left bundle branch block on ECG of unknown chronicity. Preliminary review of bedside echocardiogram demonstrates ejection fraction of 50% with abnormal septal wall motion consistent with conduction abnormality. Hypoxia improving with diuretic therapy. Continue Lasix 40 mg IV every 12 hours. Follow fluid balance, daily weight, GFR, and electrolytes. Add low-dose beta-alvarado, metoprolol 12.5 mg every 12 hours. Transition to succinate formulation (evidence-based heart failure therapy) at discharge pending clinical response. Elevated troponin in setting of acute heart failure, hypoxia, and hypertensive crisis. Acute plaque rupture event not excluded. Risk factors for underlying CAD including diabetes, dyslipidemia, and hypertension. Trend cardiac enzymes x3 sets. Continue intravenous heparin. Add aspirin 325 mg x 1 now then 81 mg daily. High intensity statin therapy. Further ischemic evaluation is warranted. Patient currently pain-free and resting comfortably. Will discuss coronary angiography with patient and her family. Addendum: Patient reexamined at bedside with remote lawn care specialist. Risk, benefits, and alternatives to cardiac catheterization with coronary angiography discussed. Patient agreeable. She will be made n.p.o. except medications after midnight with plans for cardiac catheterization in a.m. Continue intravenous heparin, aspirin, statin, and beta-alvarado therapy. Repeat ECG demonstrates narrow QRS complex with anterior T wave inversions. Left bundle branch block has resolved. Recommend urgent coronary angiography/left heart catheterization with any recurrent chest discomfort. 60 minutes critical care time spent evaluating patient, reviewing data, formula ting plan of care, and discussion with family and consulting physicians. History of Present Illness Reason for Consultation: CHF, hypertensive emergency Requesting Physician: Dr. Jones Attending Physician: Broderick Aguilar MD History of Present Illness 55-year-old female presented to the emergency department with acute shortness of breath. She is from [facility]. Speaks Beth however understands limited Serbian. Son present on admission to help with H&P. Case also discussed with critical care who was able to interpret. Patient stopped all medications approximately 2 days ago. She was concerned regarding a rash on the palm of her hands. Upon arrival to the ER she reported cough, dyspnea, chest discomfort, and blurred vision. She was restless and placed on BiPAP. Tachycardic with systolic blood pressure up to the 230s mmHg. Initial ECG demonstrating a left bundle branch block of unknown chronicity. Troponin slightly elevated. X-ray revealing bilateral pulmonary edema, pleural effusions, possible infiltrates. Her Covid test was negative. Patient improved with BiPAP and diuretic therapy. She was admitted to the intensive care unit. Diuresed an additional 1.7 L this morning. No longer wearing BiPAP. Saturating 90% on 2 L nasal cannula. Patient seen and examined at the bedside. Denies any chest pain or dyspnea currently. She is lying supine. Telemetry reveals sinus rhythm and sinus tachycardia with a bundle branch block. Her troponin has trended upward to 1.360. Blood pressure has improved significantly with IV diuretic therapy, and intravenous nitroglycerin infusion. IV nitro discontinued. Losartan restarted. Renal function within normal limits. Preliminary review of bedside 2D transthoracic echocardiogram demonstrates eje ction fraction of 50% with abnormal septal wall motion consistent with left bundle branch block. No significant valvular pathology. Allergies Allergy/AdvReac Type Severity Reaction Status Date / Time No Known Allergies Allergy Verified 05/21/21 03:07 Home Medications Medication Instructions Recorded Confirmed Type atorvastatin 20 mg tablet 20 mg PO DAILY 10/22/20 05/21/21 History hydrochlorothiazide 25 mg tablet 25 mg PO DAILY 10/22/20 05/21/21 History losartan 25 mg tablet 25 mg PO DAILY 10/22/20 05/21/21 History meloxicam 7.5 mg tablet 7.5 mg PO DAILY PRN 10/22/20 05/21/21 History metformin 500 mg tablet 500 mg PO BIDM 10/22/20 05/21/21 History betamethasone dipropionate 0.05 % 1 applic TOPICAL BID #45 g 02/17/21 05/21/21 Rx topical ointment Patient History Social History Smoking Status: Never smoker Hx Alcohol Use: No Hx Substance Use: No Preferred Language: [facility] Communication Tools: IPad and Language 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 Engineer 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 Required: Yes marital status: Current Living Situation: Spouse current occupational status: unemployed Feels Safe at Home: Yes Safety Concerns: Feels Safe At This Time Review of Systems Review of Systems: All systems reviewed & are unremarkable except as noted in Subjective Physical Exam Constitutional: well developed and well nourished Respiratory: normal respiratory effort; no respiratory distress, no labored breathing and no retractions Auscultation: + diminished lung sounds (Bases bilateral) and + rales (Bilateral bases); no rhonchi and no wheezes Cardiovascular: Rate/Rhythm: regular rate and regular rhythm Heart Sounds: normal S1 and normal S2; no gallop, no murmur and no cardiac rub Palpation: normal PMI Vessels: radial pulses present; no JVD and no carotid bruit Extremities: no edema Gastrointestinal (Abdomen): Inspection/Auscultation: abdomen normal to inspection and normal bowel sounds; abdomen not distended Percussion/Palpatio n: abdomen soft; abdomen nontender, no guarding and abdomen not rigid Neurologic: CN's II-XI intact bilaterally and moves all extremities; no focal motor deficits Motor/Sensory: no tremor Results & Data ([facility]) Vital Signs (Past 12 Hours) Vital Signs Temp Pulse Pulse Resp BP BP Pulse Ox 05/21/21 10:00 104 H 25 H 107/72 94 05/21/21 09:00 97 H 17 107/69 94 05/21/21 08:00 104 H 31 H 122/72 93 05/21/21 07:34 104 H 22 95 05/21/21 07:30 104 H 17 95 05/21/21 07:00 109 H 26 H 95 05/21/21 06:20 36.9 C 111 H 26 H 111/74 96 05/21/21 06:13 110 H 05/21/21 06:11 05/21/21 06:01 111 H 29 H 99 05/21/21 06:00 107 H 23 111/74 95 05/21/21 05:35 111 H 23 145/94 H 97 05/21/21 05:15 120 H 25 H 141/87 H 97 05/21/21 05:05 120 H 24 134/89 95 05/21/21 05:00 127 H 26 H 164/99 H 96 05/21/21 04:55 127 H 24 147/103 H 97 05/21/21 04:50 127 H 18 154/100 H 95 05/21/21 04:45 123 H 24 141/97 H 96 05/21/21 04:40 122 H 26 H 151/103 H 96 05/21/21 04:35 123 H 30 H 139/93 97 05/21/21 04:30 120 H 26 H 129/98 99 05/21/21 04:25 121 H 24 117/92 99 05/21/21 04:20 121 H 28 H 133/93 99 05/21/21 04:15 125 H 26 H 138/93 98 05/21/21 04:10 127 H 31 H 128/94 99 05/21/21 04:00 127 H 30 H 126/78 99 05/21/21 03:55 129 H 30 H 139/94 99 05/21/21 03:50 128 H 31 H 133/88 95 05/21/21 03:45 130 H 32 H 147/95 H 96 05/21/21 03:40 140 H 40 H 134/100 91 05/21/21 03:35 134 H 33 H 141/97 H 94 05/21/21 03:30 135 H 27 H 142/106 H 93 05/21/21 03:25 137 H 39 H 130/100 91 05/21/21 03:20 141 H 42 H 147/112 H 90 05/21/21 03:15 140 H 159/115 H 89 L 05/21/21 03:10 146 H 177/124 H 92 05/21/21 03:09 150 H 42 H 189/125 H 92 05/21/21 02:55 153 H 46 H 233/171 H 87 L Pulse Ox 05/21/21 10:00 05/21/21 09:00 05/21/21 08:00 05/21/21 07:34 05/21/21 07:30 05/21/21 07:00 05/21/21 06:20 05/21/21 06:13 05/21/21 06:11 95 05/21/21 06:01 05/21/21 06:00 05/21/21 05:35 05/21/21 05:15 05/21/21 05:05 05/21/21 05:00 05/21/21 04:55 05/21/21 04:50 05/21/21 04:45 05/21/21 04:40 05/21/21 04:35 05/21/21 04:30 05/21/21 04:25 05/21/21 04:20 05/21/21 04:15 05/21/21 04:10 05/21/21 04:00 05/21/21 03:55 05/21/21 03:50 05/21/21 03:45 05/21/21 03:40 05/21/21 03:35 05/21/21 03:30 05/21/21 03:25 05/21/21 03:20 05/21/21 03:15 05/21/21 03:10 05/21/21 03:09 05/21/21 02:55
[2021-05-21] MEDS: METOPROLOL TARTRATE 25 MG TAB PO SCH ×2 (13:02→19:53)
[2021-05-21] MEDS: INSULIN ASPART 100 UNITS/ML 3 ML PEN SC SCH ×2 (13:03→18:20)
[2021-05-21 15:07] LABS: Partial Thromboplastin Ratio 1.3
[2021-05-21] MEDS ORDERED: HEPARIN SOD (PORCINE) 1000 UNIT/ML IV ONE (15:30)
[2021-05-21] MEDS ORDERED: CLOPIDOGREL BISULFATE 300 MG TAB PO STA (17:29)
[2021-05-21] MEDS: ACETAMINOPHEN 325 MG TAB PO PRN (21:38)
[2021-05-21 21:59] LABS: Partial Thromboplastin Ratio 2.2
[2021-05-21 22:07] LABS: Partial Thromboplastin Time 58.7 Seconds (21.0-31.0)
[2021-05-22] MEDS: INSULIN ASPART 100 UNITS/ML 3 ML PEN SC SCH ×4 (00:10→17:23)
[2021-05-22] MEDS: HEPARIN SODIUM/DEXTROSE 25,000 UNITS/500 ML BAG IV SCH (04:17)
[2021-05-22 05:44] LABS: Basophils # (auto) 0.03 K/uL (0-0.2); Basophils % (auto) 0.3 %; Eosinophils # (auto) 0.19 K/uL (0-0.5); Eosinophils % (auto) 1.7 %; Hematocrit (blood only) 37.8 % (37-47); Hemoglobin 11.9 g/dL (12.0-16.0); Immature Granulocytes # (auto) 0.06 K/uL (0.00-0.02); Immature Granulocytes % (auto) 0.5 %; Lymphocytes # (auto) 4.64 K/uL (1.2-3.4); Lymphocytes % (auto) 40.3 %; Mean Corpuscular Hemoglobin 25.8 pg (25-34); Mean Corpuscular Hgb Conc 31.5 g/dL (32-36); Mean Platelet Volume 9.8 fL (7.4-10.4); Monocytes # (auto) 0.83 K/uL (0.11-0.59); Monocytes % (auto) 7.2 %; Neutrophils # (auto) 5.76 K/uL (1.4-6.5); Platelet Count 361 K/uL (130-400); RDW Coefficient of Variation 14.4 % (11.5-14.5); Red Blood Count 4.61 M/uL (4.2-5.4); White Blood Count 11.51 K/uL (4.8-10.8)
[2021-05-22 05:58] LABS: BUN Creatinine Ratio 18.7 (10-20); Calcium 8.7 mg/dl (8.5-10.1); Creatinine Clr Calc Pharmacy 110.7 ml/min; Est GFR (African American) 118.1 ml/min; Est GFR (Non-African American) 101.9 ml/min; Potassium 3.2 mmol/L (3.5-5.1)
[2021-05-22 05:59] LABS: Phosphorus 3.4 mg/dl (2.5-4.9)
--- NOTE | 2021-05-22 06:03 | Electrocardiogram Report ---
Test Reason : Blood Pressure : / mmHG Vent. Rate : 132 BPM Atrial Rate : 132 BPM P-R Int : 134 ms QRS Dur : 134 ms QT Int : 310 ms P-R-T Axes : 051 055 107 degrees QTc Int : 459 ms Sinus tachycardia Possible Left atrial enlargement Non-specific intra-ventricular conduction block Anterior infarct Abnormal ECG No previous ECG available for comparison Confirmed by Spenser Lewis ([id number]) on 05/22/2021 6:03:21 AM Referred By: REFERRED SELF Confirmed By:Spenser Lewis
--- NOTE | 2021-05-22 06:13 | Electrocardiogram Report ---
Test Reason : Blood Pressure : / mmHG Vent. Rate : 108 BPM Atrial Rate : 108 BPM P-R Int : 146 ms QRS Dur : 132 ms QT Int : 382 ms P-R-T Axes : 065 002 110 degrees QTc Int : 511 ms Sinus tachycardia Possible Left atrial enlargement Left bundle branch block Abnormal ECG When compared with ECG of 21-MAY-2021 03:46, No significant change Confirmed by Spenser Lewis ([id number]) on 05/22/2021 6:12:28 AM Referred By: REFERRED SELF Confirmed By:Spenser Lewis
--- NOTE | 2021-05-22 06:43 | Hospitalist Progress Note ---
Date of Service May 22, 2021 Assessment & Plan (1) Acute on chronic heart failure with preserved ejection fraction (HFpEF): (2) Respiratory failure: (3) Acute pulmonary edema: (4) Hypertensive emergency: (5) Elevated troponin I level: (6) LBBB (left bundle branch block): (7) Non-ST elevation (NSTEMI) myocardial infarction: Plan: NSTEMI Acute HF w/ pEF LBBB This is a 55-year-old female, who presents with acute shortness of breath. 1. Acute shortness of breath-respiratory failure with hypoxia: Most likely secondary to hypertensive emergency, flash pulmonary edema. Received a dose of IV Lasix. The patient stopped her medication 3 days ago because of itchiness in the hand, she thought medication could be contributing to it. Placed on BiPAP and nitro drip on admission. Continued iv Lasix The patient is feeling better, clinically much improved. Chest pain resolved, shortness of breath resolved. Troponin elevated ICU and cardiology consulted on admission. Echocardiogram - low normal LV systolic function. EF 50 to 55%. There is mild concentric LVH. Septal motion is consistent with conduction abnormality. There is mild mitral regurg. Pulse-wave TDI of the anterior and posterior mitral annulus demonstrates abnormal LV relaxation. Underwent cardiac cath today (05/22) - revealing nonobstructive coronary artery disease of the LAD, left main, circumflex, and RCA. There is branch vessel stenosis of the diagonal as documented under separate report. Medical management recommended with aspirin, high intensity statin, ARB and beta-alvarado therapy. Consider addition of long-acting nitrates if patient experiences recurrent anginal symptoms. Plavix and intravenous heparin discontinued. Left bundle branch appears to be intermittent and at times rate related. Continue to closely monitor, ok to downgrade to PCU 2. Hypertensive emergency: On nitro drip. Continue her home losartan in the morning. Holding her hydrochlorothiazide initially. We will adjust the blood pressure medications. Await cardiac input. BP now well controlled 3. Mild elevation of troponin. Chest discomfort -improved now. Ekg changes- LBBB. No old ekg to compare. Mostly demand ischemia. Will follow serial CE and echo. Await cardiology inputs - as above 4. Leukocytosis: Could be reactive. WBC now down to 11k. If any concerns, will start antibiotics and get the cultures. 5. Diabetes: Hold her metformin. Placed on insulin sliding scale. Follow the blood sugars. Follow HbA1c levels. 6. Hyperlipidemia: Continue statin. DVT prophylaxis: initially Lovenox, then IV heparin which is now stopped. SCDs DISPOSITION: Downgrade now to PCU from ICU. Expect to discharge home and follow with family doctor. Code: Full Admission and Anticipated Discharge Date Admission Date: May 21, 2021 Subjective Patient seen in follow-up of respiratory failure, in the setting of flash pulmonary edema, hypertensive emergency, NSTEMI acute CHF exacerbation Currently laying in bed, in no acute distress, on room air Reports she had some chest discomfort prior to coming to the hospital but not after she came to the hospital She received IV Lasix, nicardipine drip on admission, and underwent cardiac cath ealier today Currently feeling much better and has no complaints Patient to stop taking blood pressure medication several days ago as she was concerned about her dry skin of her palms Review of Systems Review of Systems: All systems reviewed & are unremarkable except as noted in Subjective Physical Exam Physical Exam: GENERAL: WD/WN F laying in bed, in no acute distress HEENT: NC/AT, EOMI, Pupils, extraocular muscles intact. NECK: No JVD, no neck masses. CARDIOVASCULAR: S1 and S2 heard. RRR. No murmurs. RESPIRATORY: Normal AP diameter. No accessory muscle use. mild bilateral crackles (much improved from previous exam). No wheezing. ABDOMEN: Soft, bowel sounds present, nontender, no distention. NEURO: Alert and awake. Answers questions appropriately. Speech fluent, no facial asymmetry. Moves extremities. EXTREMITIES: No LE edema, no erythema seen. Results & Data Results & Data ([facility]) Vital Signs (Past 12 Hours) Vital Signs Pulse Resp BP Pulse Ox 05/22/21 01:01 88 16 121/82 92 05/22/21 00:00 93 H 20 93 05/21/21 23:02 86 16 05/21/21 22:00 81 18 137/76 93 05/21/21 21:00 79 17 131/81 91 05/21/21 20:00 92 H 15 149/90 H 90 05/21/21 19:00 88 23 129/73 91 Laboratory Results 05/22/21 05/22/21 05/21/21 Range/Units 05:13 05:13 21:21 WBC 11.51 H (4.8-10.8) K/uL RBC 4.61 (4.2-5.4) M/uL Hgb 11.9 L (12.0-16.0) g/dL POC Hgb (12.0-16.0) g/dl Hct 37.8 (37-47) % POC Hct (37-47) % MCV 82.0 (80-100) fL MCH 25.8 (25-34) pg MCHC 31.5 L (32-36) g/dL RDW Std Deviation 43.0 (36.4-46.3) fL RDW Coeff of Roma 14.4 (11.5-14.5) % Plt Count 361 (130-400) K/uL MPV 9.8 (7.4-10.4) fL Immature Gran % (Auto) 0.5 % Neut % (Auto) 50.0 % Lymph % (Auto) 40.3 % Bacon % (Auto) 7.2 % Eos % (Auto) 1.7 % Baso % (Auto) 0.3 % Neut # (Auto) 5.76 (1.4-6.5) K/uL Lymph # (Auto) 4.64 H (1.2-3.4) K/uL Bacon # (Auto) 0.83 H (0.11-0.59) K/uL Eos # (Auto) 0.19 (0-0.5) K/uL Baso # (Auto) 0.03 (0-0.2) K/uL Immature Gran # (Auto) 0.06 H (0.00-0.02) K/uL Blood Smear Review APTT 58.7 H* (21.0-31.0) Seconds PTT Ratio 2.2 Specimen Type POC pH (7.35-7.45) POC pCO2 (35-46) mmHg POC pO2 (80-95) mmHg POC HCO3 (19-24) deborha/L POC Base Excess (-9-1.8) deborah/L POC ABG O2 Sat (90-95) % POC Sodium (135-144) mmol/L Sodium 135 L (136-145) mmol/L POC Potassium (3.3-5.0) mmol/L Potassium 3.2 L (3.5-5.1) mmol/L POC Chloride (101-112) mmol/L Chloride 102 (98-107) mmol/L Carbon Dioxide 29 (21-32) mmol/L POC Total CO2 (24-31) mmol/L Anion Gap 4.0 (3-11) POC Anion Gap (16-25) mmol/L POC BUN (7-18) mg/dl BUN 11 (7-18) mg/dl Creatinine 0.60 (0.6-1.2) mg/dl POC Creatinine (0.6-1.3) mg/dl Est Cr Clr Drug Dosing 110.7 ml/min Est GFR ( Amer) 118.1 ml/min Est GFR (Non-Af Amer) 101.9 ml/min BUN/Creatinine Ratio 18.7 (10-20) Glucose 125 H (70-99) mg/dl POC Glucose (70-99) mg/dl POC Glucose (other) (70-99) mg/dl Calcium 8.7 (8.5-10.1) mg/dl POC Ioniz Calcium Corey (1.12-1.32) mmol/l Phosphorus 3.4 (2.5-4.9) mg/dl Magnesium 2.0 (1.8-2.4) mg/dl Troponin I (0-0.045) ng/ml Nasal Screen MRSA (PCR) (Negative) 05/21/21 05/21/21 05/21/21 Range/Units 19:23 18:19 14:47 WBC (4.8-10.8) K/uL RBC (4.2-5.4) M/uL Hgb (12.0-16.0) g/dL POC Hgb (12.0-16.0) g/dl Hct (37-47) % POC Hct (37-47) % MCV (80-100) fL MCH (25-34) pg MCHC (32-36) g/dL RDW Std Deviation (36.4-46.3) fL RDW Coeff of Roma (11.5-14.5) % Plt Count (130-400) K/uL MPV (7.4-10.4) fL Immature Gran % (Auto) % Neut % (Auto) % Lymph % (Auto) % Bacon % (Auto) % Eos % (Auto) % Baso % (Auto) % Neut # (Auto) (1.4-6.5) K/uL Lymph # (Auto) (1.2-3.4) K/uL Bacon # (Auto) (0.11-0.59) K/uL Eos # (Auto) (0-0.5) K/uL Baso # (Auto) (0-0.2) K/uL Immature Gran # (Auto) (0.00-0.02) K/uL Blood Smear Review APTT 33.0 H (21.0-31.0) Seconds PTT Ratio 1.3 Specimen Type POC pH (7.35-7.45) POC pCO2 (35-46) mmHg POC pO2 (80-95) mmHg POC HCO3 (19-24) deborah/L POC Base Excess (-9-1.8) deborah/L POC ABG O2 Sat (90-95) % POC Sodium (135-144) mmol/L Sodium (136-145) mmol/L POC Potassium (3.3-5.0) mmol/L Potassium (3.5-5.1) mmol/L POC Chloride (101-112) mmol/L Chloride (98-107) mmol/L Carbon Dioxide (21-32) mmol/L POC Total CO2 (24-31) mmol/L Anion Gap (3-11) POC Anion Gap (16-25) mmol/L POC BUN (7-18) mg/dl BUN (7-18) mg/dl Creatinine (0.6-1.2) mg/dl POC Creatinine (0.6-1.3) mg/dl Est Cr Clr Drug Dosing ml/min Est GFR ( Amer) ml/min Est GFR (Non-Af Amer) ml/min BUN/Creatinine Ratio (10-20) Glucose (70-99) mg/dl POC Glucose 105 H (70-99) mg/dl POC Glucose (other) (70-99) mg/dl Calcium (8.5-10.1) mg/dl POC Ioniz Calcium Corey (1.12-1.32) mmol/l Phosphorus (2.5-4.9) mg/dl Magnesium (1.8-2.4) mg/dl Troponin I 3.440 H* (0-0.045) ng/ml Nasal Screen MRSA (PCR) (Negative) 05/21/21 05/21/21 05/21/21 Range/Units 13:14 13:01 09:18 WBC (4.8-10.8) K/uL RBC (4.2-5.4) M/uL Hgb (12.0-16.0) g/dL POC Hgb (12.0-16.0) g/dl Hct (37-47) % POC Hct (37-47) % MCV (80-100) fL MCH (25-34) pg MCHC (32-36) g/dL RDW Std Deviation (36.4-46.3) fL RDW Coeff of Roma (11.5-14.5) % Plt Count (130-400) K/uL MPV (7.4-10.4) fL Immature Gran % (Auto) % Neut % (Auto) % Lymph % (Auto) % Bacon % (Auto) % Eos % (Auto) % Baso % (Auto) % Neut # (Auto) (1.4-6.5) K/uL Lymph # (Auto) (1.2-3.4) K/uL Bacon # (Auto) (0.11-0.59) K/uL Eos # (Auto) (0-0.5) K/uL Baso # (Auto) (0-0.2) K/uL Immature Gran # (Auto) (0.00-0.02) K/uL Blood Smear Review APTT (21.0-31.0) Seconds PTT Ratio Specimen Type POC pH (7.35-7.45) POC pCO2 (35-46) mmHg POC pO2 (80-95) mmHg POC HCO3 (19-24) deborah/L POC Base Excess (-9-1.8) deborah/L POC ABG O2 Sat (90-95) % POC Sodium (135-144) mmol/L Sodium (136-145) mmol/L POC Potassium (3.3-5.0) mmol/L Potassium (3.5-5.1) mmol/L POC Chloride (101-112) mmol/L Chloride (98-107) mmol/L Carbon Dioxide (21-32) mmol/L POC Total CO2 (24-31) mmol/L Anion Gap (3-11) POC Anion Gap (16-25) mmol/L POC BUN (7-18) mg/dl BUN (7-18) mg/dl Creatinine (0.6-1.2) mg/dl POC Creatinine (0.6-1.3) mg/dl Est Cr Clr Drug Dosing ml/min Est GFR ( Amer) ml/min Est GFR (Non-Af Amer) ml/min BUN/Creatinine Ratio (10-20) Glucose (70-99) mg/dl POC Glucose 109 H 110 H (70-99) mg/dl POC Glucose (other) (70-99) mg/dl Calcium (8.5-10.1) mg/dl POC Ioniz Calcium Corey (1.12-1.32) mmol/l Phosphorus (2.5-4.9) mg/dl Magnesium (1.8-2.4) mg/dl Troponin I 3.380 H* (0-0.045) ng/ml Nasal Screen MRSA (PCR) (Negative) 05/21/21 05/21/21 05/21/21 Range/Units 06:47 06:39 06:11 WBC (4.8-10.8) K/uL RBC (4.2-5.4) M/uL Hgb (12.0-16.0) g/dL POC Hgb (12.0-16.0) g/dl Hct (37-47) % POC Hct (37-47) % MCV (80-100) fL MCH (25-34) pg MCHC (32-36) g/dL RDW Std Deviation (36.4-46.3) fL RDW Coeff of Roma (11.5-14.5) % Plt Count (130-400) K/uL MPV (7.4-10.4) fL Immature Gran % (Auto) % Neut % (Auto) % Lymph % (Auto) % Bacon % (Auto) % Eos % (Auto) % Baso % (Auto) % Neut # (Auto) (1.4-6.5) K/uL Lymph # (Auto) (1.2-3.4) K/uL Bacon # (Auto) (0.11-0.59) K/uL Eos # (Auto) (0-0.5) K/uL Baso # (Auto) (0-0.2) K/uL Immature Gran # (Auto) (0.00-0.02) K/uL Blood Smear Review APTT (21.0-31.0) Seconds PTT Ratio Specimen Type POC pH (7.35-7.45) POC pCO2 (35-46) mmHg POC pO2 (80-95) mmHg POC HCO3 (19-24) deborah/L POC Base Excess (-9-1.8) deborah/L POC ABG O2 Sat (90-95) % POC Sodium (135-144) mmol/L Sodium (136-145) mmol/L POC Potassium (3.3-5.0) mmol/L Potassium (3.5-5.1) mmol/L POC Chloride (101-112) mmol/L Chloride (98-107) mmol/L Carbon Dioxide (21-32) mmol/L POC Total CO2 (24-31) mmol/L Anion Gap (3-11) POC Anion Gap (16-25) mmol/L POC BUN (7-18) mg/dl BUN (7-18) mg/dl Creatinine (0.6-1.2) mg/dl POC Creatinine (0.6-1.3) mg/dl Est Cr Clr Drug Dosing ml/min Est GFR ( Amer) ml/min Est GFR (Non-Af Amer) ml/min BUN/Creatinine Ratio (10-20) Glucose (70-99) mg/dl POC Glucose 124 H (70-99) mg/dl POC Glucose (other) (70-99) mg/dl Calcium (8.5-10.1) mg/dl POC Ioniz Calcium Corey (1.12-1.32) mmol/l Phosphorus (2.5-4.9) mg/dl Magnesium (1.8-2.4) mg/dl Troponin I 1.360 H* (0-0.045) ng/ml Nasal Screen MRSA (PCR) Negative (Negative) 05/21/21 05/21/21 05/21/21 Range/Units 03:53 03:08 03:00 WBC (4.8-10.8) K/uL RBC (4.2-5.4) M/uL Hgb (12.0-16.0) g/dL POC Hgb 13.9 15.6 (12.0-16.0) g/dl Hct (37-47) % POC Hct 41 46 (37-47) % MCV (80-100) fL MCH (25-34) pg MCHC (32-36) g/dL RDW Std Deviation (36.4-46.3) fL RDW Coeff of Roma (11.5-14.5) % Plt Count (130-400) K/uL MPV (7.4-10.4) fL Immature Gran % (Auto) % Neut % (Auto) % Lymph % (Auto) % Bacon % (Auto) % Eos % (Auto) % Baso % (Auto) % Neut # (Auto) (1.4-6.5) K/uL Lymph # (Auto) (1.2-3.4) K/uL Bacon # (Auto) (0.11-0.59) K/uL Eos # (Auto) (0-0.5) K/uL Baso # (Auto) (0-0.2) K/uL Immature Gran # (Auto) (0.00-0.02) K/uL Blood Smear Review APTT (21.0-31.0) Seconds PTT Ratio Specimen Type Arterial POC pH 7.30 L (7.35-7.45) POC pCO2 48 H (35-46) mmHg POC pO2 97 H (80-95) mmHg POC HCO3 23 (19-24) deborah/L POC Base Excess -3.0 (-9-1.8) deborah/L POC ABG O2 Sat 97.0 H (90-95) % POC Sodium 137 141 (135-144) mmol/L Sodium (136-145) mmol/L POC Potassium 3.6 3.7 (3.3-5.0) mmol/L Potassium (3.5-5.1) mmol/L POC Chloride 100 L (101-112) mmol/L Chloride (98-107) mmol/L Carbon Dioxide (21-32) mmol/L POC Total CO2 25 26 (24-31) mmol/L Anion Gap (3-11) POC Anion Gap 20.0 (16-25) mmol/L POC BUN 15 (7-18) mg/dl BUN (7-18) mg/dl Creatinine (0.6-1.2) mg/dl POC Creatinine 0.7 (0.6-1.3) mg/dl Est Cr Clr Drug Dosing ml/min Est GFR ( Amer) ml/min Est GFR (Non-Af Amer) ml/min BUN/Creatinine Ratio (10-20) Glucose (70-99) mg/dl POC Glucose (70-99) mg/dl POC Glucose (other) 253 H (70-99) mg/dl Calcium (8.5-10.1) mg/dl POC Ioniz Calcium Corey 1.24 (1.12-1.32) mmol/l Phosphorus (2.5-4.9) mg/dl Magnesium (1.8-2.4) mg/dl Troponin I (0-0.045) ng/ml Nasal Screen MRSA (PCR) (Negative) Medications Administered Current Inpatient Medications Acetaminophen (Acetaminophen 325 Mg Tab) 650 mg PO Q4H PRN PRN Reason: Headache Stop: 06/20/21 09:49 Last Admin: 05/21/21 21:38 Dose: 650 mg Documented by: Aspirin (Aspirin 81 Mg Chew) 81 mg PO DAILY CONSTANZA Stop: 06/21/21 08:59 Atorvastatin Calcium (Atorvastatin 40 Mg Tab) 80 mg PO DAILY CONSTANZA Stop: 06/20/21 08:59 Last Admin: 05/21/21 09:13 Dose: 80 mg Documented by: Clopidogrel Bisulfate (Clopidogrel Bisulfate 75 Mg Tab) 75 mg PO QAM CONSTANZA Stop: 06/21/21 08:59 Dextrose (Dextrose 50% 50 Ml Syringe) 25 - 50 ml IV UD PRN; Protocol PRN Reason: Hypoglycemia Protocol Stop: 06/20/21 07:14 Glucagon (Glucagon For Inj 1 Mg Vial) 1 mg IM UD PRN; Protocol PRN Reason: Hypoglycemia Protocol Stop: 06/20/21 07:14 Glucose (Glucose 40% Gel 15 Gm Tube) 15 - 30 gm PO UD PRN; Protocol PRN Reason: Hypoglycemia Protocol Stop: 06/20/21 07:14 Glucose (Glucose 10 Tabs/Tube) 4 - 8 tabs PO UD PRN; Protocol PRN Reason: Hypoglycemia Protocol Stop: 06/20/21 07:14 Furosemide 40 mg/ Syringe 4 mls @ 4 mls/min IV DAILY CONSTANZA Stop: 06/20/21 08:59 Heparin Sodium/Dextrose (Heparin Sodium/Dextrose) 25,000 units in 500 mls @ 27 mls/hr IV .[id number] CONSTANZA; Protocol Stop: 06/20/21 07:44 Last Admin: 05/22/21 04:17 Dose: 1,350 units/hr, 27 mls/hr Documented by: Potassium Chloride (K Marques / Wtr) 10 meq in 100 mls @ 100 mls/hr IV Q1H CONSTANZA Stop: 05/22/21 08:14 Insulin Aspart (Insulin Aspart 100 Units/Ml 3 Ml Pen) 0 units SC Q6 CONSTANZA Stop: 06/20/21 11:59 Last Admin: 05/22/21 00:10 Dose: Not Given Documented by: Losartan Potassium (Losartan Potassium 25 Mg Tab) 25 mg PO DAILY CONSTANZA Stop: 06/20/21 08:59 Last Admin: 05/21/21 09:14 Dose: 25 mg Documented by: Metoprolol Tartrate (Metoprolol Tartrate 25 Mg Tab) 12.5 mg PO BID CONSTANZA Stop: 06/20/21 12:14 Last Admin: 05/21/21 19:53 Dose: 12.5 mg Documented by: Miscellaneous ([facility] Protocol For Hyperglycemia) 1 ea N/A PRN PRN; Protocol PRN Reason: Hyperglycemia Protocol Stop: 05/23/21 06:10 Miscellaneous (Order Awaiting Action [Betamethasone Dipropionate 0.05 % Oint]) 1 ea N/A QS CONSTANZA Stop: 06/20/21 07:59 Last Admin: 05/22/21 00:10 Dose: Not Given Documented by: Miscellaneous (Carbohydrates For Hypoglycemia ) 15 - 30 gm PO UD PRN PRN Reason: Hypoglycemia Treatment Stop: 06/20/21 07:14 Pantoprazole Sodium (Pantoprazole 40 Mg Tab) 40 mg PO QAM CONSTANZA Stop: 06/20/21 08:59 Last Admin: 05/21/21 09:14 Dose: 40 mg Documented by: (1) Respiratory failure Chronicity: acute Respiratory failure complication: hypoxia Qualified Code(s): J96.01 - Acute respiratory failure with hypoxia
[2021-05-22] MEDS ORDERED: SODIUM PHOSPHATE 3 MMOL/1 ML INFUSION IV STA (07:20)
[2021-05-22] MEDS: POTASSIUM CHLORIDE / WTR 10 MEQ/100 ML PLCT IV SCH ×2 (07:38→08:54)
--- NOTE | 2021-05-22 07:55 | Critical Care Progress Note ---
Date of Service May 22, 2021 Assessment & Plan (1) Acute pulmonary edema: Plan: Impression: 55-year-old female with PMHx of HTN, hyperlipidemia, and diabetes admitted with flash pulmonary edema and Type II NSTEMI secondary to hypertensive emergency. Has remained in ICU for close monitoring. Neuro - No acute concerns. CAM ICU: Negative Cardiac - TYPE II NSTEMI Secondary to Hypertensive Emergency - Cardiology consulted. Appreciate their recommendations. - Troponin increased from 0.056 --> 3.44 last night. Scheduled for cardiac cath procedure this AM. - Continue atorvastatin, heparin drip, Plavix, and ASA - Consider addition of beta alvarado - TTE performed 05/21/21 with EF of 50-55%. Mild concentric LVH. Septal motion consistent with conduction abnormality. Mild mitral regurgitation. Pulse wave TDI of anterior and posterior mitral annulas demonstrates abnormal LV relaxation. Interpreted by Dr. Thorne. - Continue continuous cardiac monitoring. Hypertensive emergency - Hx of hypertension w/ anti-hypertensive home regimen consisting of losartan and HCTZ - Patient reports that she had not taken BP medications in 3 days as she thought it was contributing to her dry skin - Currently hemodynamically stable. Will continue to monitor. - Continue losartan. Hold HCTZ. Respiratory - Pulmonary edema - Maintaining O2 sats on room air. No respiratory distress. - Repeat CXR this AM with improvement. - Encourage IS use and BiPAP as needed. - Received 60mg IV lasix on 05/22/21. Currently with net balance of -2479 mL. Will resume daily lasix at 20mg IV to maintain net negative balance. - Continuous monitoring on pulse ox GI - - No acute concerns. - GI ppx with pantoprazole 40mg po daily - Currently NPO in preparation for cardiac cath procedure today. RENAL/LYTES - - Creatinine within normal limits - Routine BMPs and replete electrolytes as indicated - - No acute concerns - Most recently, I: 1245, O: 3725, Net: -2479 - Continue strict I's and O's ENDO - - History of DM. Hold home metformin. Continue insulin management with Novolog. ICU hyperglycemic protocol. - No history of thyroid disease HEME - - No acute concerns. ID - - Leukocytosis, possibly reactive. WBC on admission 21.85. Improved to 11.51 today. Will continue to monitor CBC. - Patient remains afebrile. - Defer abx therapy at this time. LINES/IV ACCESS - Peripheral IVs DVT PPX - Heparin GI PPX: Protonix (2) Hypertensive emergency: (3) Non-ST elevation (NSTEMI) myocardial infarction: (4) Elevated troponin I level: (5) Hypertension: (6) Diabetes: (7) Hyperlipemia: Admission and Anticipated Discharge Date Admission Date: May 21, 2021 Supervising Physician Co-Signing Physician Notes Dr. Hollis Was the resident-physician during care of patient. I separately evaluated patient for cordon portions of the history and the exam. I was present during the critical portion of medical decision making, and I discussed the case with the resident. I generally agree with the findings and plan except for any additions/exceptions noted. Impression: 55-year-old [place] female residing in [place] since last 5 years with past medical history of hypertension noncompliant with medication since last 2 days presented to the hospital with complaints of shortness of breath Patient was found to be in hypertensive emergency with pulmonary edema. Patient was started on nicardipine drip and sent to ICU for further management Patient has been hemodynamically stable since coming to the ICU She was saturating 94-96% on 2 L nasal cannula. She denied any chest pain, shortness of breath significantly improved. Did complain of mild headache. No belly pain. No nausea or vomiting. Constitutional: No acute distress HEENT: EOMI, PERRLA Respiratory system: Decreased entry bilaterally, no wheeze, normal, positive crackles bilateral lower lobes (improved from yesterday) CVS: S1-S2 positive, no murmurs or gallops, distant heart sounds Abdomen: Soft, nontender, nondistended, positive bowel sounds x4, obese Extremities: +2 pulses bilaterally radialis/ dorsalis pedis, no cyanosis, no edema, patient does have scaling dry skin on both palms Neuro: Awake alert oriented x3 Psych: Normal mood and affect G/U: No Momin --Prophylaxis VTE: Heparin drip GI: Protonix Lines: Peripheral Diet: N.p.o. Plan: In/out: -2.4 L, urine output 3725 2D echo from yesterday shows good ejection fraction. Plan was discussed with Dr. Thorne. She did get loading 30 mg of Plavix yesterday Plan is to have cardiac cath today Troponin peaked to 3.8. Starting to trend down Hypokalemia is getting replaced H&H is stable. Continue with beta-alvarado, losartan, aspirin and Plavix. Give 20 mg of Lasix today. I have personally spent 35 minutes of critical care time in the direct management of this patient. This is a life/limb threatening event. This includes time spent evaluating patient, direct bedside care, chart review, placing orders, interpretation of diagnostic studies, discussion with consultants, patient, and/or family members regarding treatment decisions, as well as other required patient management activities. This time is exclusive of all separately billable procedures, and teaching time and separate from and in addition to any other critical care service time. Subjective Patient seen and evaluated at bedside this morning with Dr. Ojeda, clinical account liaison. Upon arrival to the room, patient sleeping in no respiratory distress on room air. Patient complains of only mild headache this morning with no other concerns. Has been NPO since midnight in preparation for cardiac cath procedure this AM. Review of Systems Review of Systems: See HPI Physical Exam Physical Exam: GENERAL: No acute distress. Well developed and well nourished. Vital signs reviewed as above. EYES: EOMI. Anicteric sclerae. HENT: Moist mucous membranes. RESPIRATORY: Positive crackles bilateral lower lobes, R>L, significantly improved compared to exam yesterday. CARDIOVASCULAR: Distant heart sounds. S1/S2 regular. Regular rate and rhythm. No murmur appreciated. 2+ pedal pulses bilaterally. ABDOMEN: Soft, non-tender and non-distended. Normal bowel sounds. EXTREMITIES: No edema. Non-tender. SKIN: Warm. Dryness and scaling on bilateral palms. NEUROLOGIC: A/O x3. No focal neurological deficits. PSYCHIATRIC: Cooperative. Appropriate mood and affect. Results & Data Results & Data ([facility]) Vital Signs (Past 12 Hours) Vital Signs Temp Pulse Resp BP Pulse Ox 05/22/21 07:00 88 24 145/88 H 93 05/22/21 06:00 67 18 157/92 H 86 L 05/22/21 05:01 90 15 171/113 H 95 05/22/21 04:01 36.7 C 151/83 H 05/22/21 03:01 81 19 134/79 93 05/22/21 02:01 84 15 132/72 91 05/22/21 01:01 88 16 121/82 92 05/22/21 00:00 93 H 20 93 05/21/21 23:02 86 16 05/21/21 22:00 81 18 137/76 93 05/21/21 21:00 79 17 131/81 91 05/21/21 20:00 92 H 15 149/90 H 90 Laboratory Results 05/22/21 05/22/21 05/21/21 Range/Units 05:13 05:13 21:21 WBC 11.51 H (4.8-10.8) K/uL RBC 4.61 (4.2-5.4) M/uL Hgb 11.9 L (12.0-16.0) g/dL POC Hgb (12.0-16.0) g/dl Hct 37.8 (37-47) % POC Hct (37-47) % MCV 82.0 (80-100) fL MCH 25.8 (25-34) pg MCHC 31.5 L (32-36) g/dL RDW Std Deviation 43.0 (36.4-46.3) fL RDW Coeff of Roma 14.4 (11.5-14.5) % Plt Count 361 (130-400) K/uL MPV 9.8 (7.4-10.4) fL Immature Gran % (Auto) 0.5 % Neut % (Auto) 50.0 % Lymph % (Auto) 40.3 % [place] % (Auto) 7.2 % Eos % (Auto) 1.7 % Baso % (Auto) 0.3 % Neut # (Auto) 5.76 (1.4-6.5) K/uL Lymph # (Auto) 4.64 H (1.2-3.4) K/uL [place] # (Auto) 0.83 H (0.11-0.59) K/uL Eos # (Auto) 0.19 (0-0.5) K/uL Baso # (Auto) 0.03 (0-0.2) K/uL Immature Gran # (Auto) 0.06 H (0.00-0.02) K/uL Blood Smear Review APTT 58.7 H* (21.0-31.0) Seconds PTT Ratio 2.2 Specimen Type POC pH (7.35-7.45) POC pCO2 (35-46) mmHg POC pO2 (80-95) mmHg POC HCO3 (19-24) deborah/L POC Base Excess (-9-1.8) deborah/L POC ABG O2 Sat (90-95) % POC Sodium (135-144) mmol/L Sodium 135 L (136-145) mmol/L POC Potassium (3.3-5.0) mmol/L Potassium 3.2 L (3.5-5.1) mmol/L POC Chloride (101-112) mmol/L Chloride 102 (98-107) mmol/L Carbon Dioxide 29 (21-32) mmol/L POC Total CO2 (24-31) mmol/L Anion Gap 4.0 (3-11) POC Anion Gap (16-25) mmol/L POC BUN (7-18) mg/dl BUN 11 (7-18) mg/dl Creatinine 0.60 (0.6-1.2) mg/dl POC Creatinine (0.6-1.3) mg/dl Est Cr Clr Drug Dosing 110.7 ml/min Est GFR ( Amer) 118.1 ml/min Est GFR (Non-Af Amer) 101.9 ml/min BUN/Creatinine Ratio 18.7 (10-20) Glucose 125 H (70-99) mg/dl POC Glucose (70-99) mg/dl POC Glucose (other) (70-99) mg/dl Calcium 8.7 (8.5-10.1) mg/dl POC Ioniz Calcium Corey (1.12-1.32) mmol/l Phosphorus 3.4 (2.5-4.9) mg/dl Magnesium 2.0 (1.8-2.4) mg/dl Troponin I (0-0.045) ng/ml 05/21/21 05/21/21 05/21/21 Range/Units 19:23 18:19 14:47 WBC (4.8-10.8) K/uL RBC (4.2-5.4) M/uL Hgb (12.0-16.0) g/dL POC Hgb (12.0-16.0) g/dl Hct (37-47) % POC Hct (37-47) % MCV (80-100) fL MCH (25-34) pg MCHC (32-36) g/dL RDW Std Deviation (36.4-46.3) fL RDW Coeff of Roma (11.5-14.5) % Plt Count (130-400) K/uL MPV (7.4-10.4) fL Immature Gran % (Auto) % Neut % (Auto) % Lymph % (Auto) % [place] % (Auto) % Eos % (Auto) % Baso % (Auto) % Neut # (Auto) (1.4-6.5) K/uL Lymph # (Auto) (1.2-3.4) K/uL [place] # (Auto) (0.11-0.59) K/uL Eos # (Auto) (0-0.5) K/uL Baso # (Auto) (0-0.2) K/uL Immature Gran # (Auto) (0.00-0.02) K/uL Blood Smear Review APTT 33.0 H (21.0-31.0) Seconds PTT Ratio 1.3 Specimen Type POC pH (7.35-7.45) POC pCO2 (35-46) mmHg POC pO2 (80-95) mmHg POC HCO3 (19-24) deborah/L POC Base Excess (-9-1.8) deborah/L POC ABG O2 Sat (90-95) % POC Sodium (135-144) mmol/L Sodium (136-145) mmol/L POC Potassium (3.3-5.0) mmol/L Potassium (3.5-5.1) mmol/L POC Chloride (101-112) mmol/L Chloride (98-107) mmol/L Carbon Dioxide (21-32) mmol/L POC Total CO2 (24-31) mmol/L Anion Gap (3-11) POC Anion Gap (16-25) mmol/L POC BUN (7-18) mg/dl BUN (7-18) mg/dl Creatinine (0.6-1.2) mg/dl POC Creatinine (0.6-1.3) mg/dl Est Cr Clr Drug Dosing ml/min Est GFR ( Amer) ml/min Est GFR (Non-Af Amer) ml/min BUN/Creatinine Ratio (10-20) Glucose (70-99) mg/dl POC Glucose 105 H (70-99) mg/dl POC Glucose (other) (70-99) mg/dl Calcium (8.5-10.1) mg/dl POC Ioniz Calcium Corey (1.12-1.32) mmol/l Phosphorus (2.5-4.9) mg/dl Magnesium (1.8-2.4) mg/dl Troponin I 3.440 H* (0-0.045) ng/ml 05/21/21 05/21/21 05/21/21 Range/Units 13:14 13:01 09:18 WBC (4.8-10.8) K/uL RBC (4.2-5.4) M/uL Hgb (12.0-16.0) g/dL POC Hgb (12.0-16.0) g/dl Hct (37-47) % POC Hct (37-47) % MCV (80-100) fL MCH (25-34) pg MCHC (32-36) g/dL RDW Std Deviation (36.4-46.3) fL RDW Coeff of Roma (11.5-14.5) % Plt Count (130-400) K/uL MPV (7.4-10.4) fL Immature Gran % (Auto) % Neut % (Auto) % Lymph % (Auto) % [place] % (Auto) % Eos % (Auto) % Baso % (Auto) % Neut # (Auto) (1.4-6.5) K/uL Lymph # (Auto) (1.2-3.4) K/uL [place] # (Auto) (0.11-0.59) K/uL Eos # (Auto) (0-0.5) K/uL Baso # (Auto) (0-0.2) K/uL Immature Gran # (Auto) (0.00-0.02) K/uL Blood Smear Review APTT (21.0-31.0) Seconds PTT Ratio Specimen Type POC pH (7.35-7.45) POC pCO2 (35-46) mmHg POC pO2 (80-95) mmHg POC HCO3 (19-24) deborah/L POC Base Excess (-9-1.8) deborah/L POC ABG O2 Sat (90-95) % POC Sodium (135-144) mmol/L Sodium (136-145) mmol/L POC Potassium (3.3-5.0) mmol/L Potassium (3.5-5.1) mmol/L POC Chloride (101-112) mmol/L Chloride (98-107) mmol/L Carbon Dioxide (21-32) mmol/L POC Total CO2 (24-31) mmol/L Anion Gap (3-11) POC Anion Gap (16-25) mmol/L POC BUN (7-18) mg/dl BUN (7-18) mg/dl Creatinine (0.6-1.2) mg/dl POC Creatinine (0.6-1.3) mg/dl Est Cr Clr Drug Dosing ml/min Est GFR ( Amer) ml/min Est GFR (Non-Af Amer) ml/min BUN/Creatinine Ratio (10-20) Glucose (70-99) mg/dl POC Glucose 109 H 110 H (70-99) mg/dl POC Glucose (other) (70-99) mg/dl Calcium (8.5-10.1) mg/dl POC Ioniz Calcium Corey (1.12-1.32) mmol/l Phosphorus (2.5-4.9) mg/dl Magnesium (1.8-2.4) mg/dl Troponin I 3.380 H* (0-0.045) ng/ml 05/21/21 05/21/21 05/21/21 Range/Units 03:53 03:08 03:00 WBC (4.8-10.8) K/uL RBC (4.2-5.4) M/uL Hgb (12.0-16.0) g/dL POC Hgb 13.9 15.6 (12.0-16.0) g/dl Hct (37-47) % POC Hct 41 46 (37-47) % MCV (80-100) fL MCH (25-34) pg MCHC (32-36) g/dL RDW Std Deviation (36.4-46.3) fL RDW Coeff of Roma (11.5-14.5) % Plt Count (130-400) K/uL MPV (7.4-10.4) fL Immature Gran % (Auto) % Neut % (Auto) % Lymph % (Auto) % [place] % (Auto) % Eos % (Auto) % Baso % (Auto) % Neut # (Auto) (1.4-6.5) K/uL Lymph # (Auto) (1.2-3.4) K/uL [place] # (Auto) (0.11-0.59) K/uL Eos # (Auto) (0-0.5) K/uL Baso # (Auto) (0-0.2) K/uL Immature Gran # (Auto) (0.00-0.02) K/uL Blood Smear Review APTT (21.0-31.0) Seconds PTT Ratio Specimen Type Arterial POC pH 7.30 L (7.35-7.45) POC pCO2 48 H (35-46) mmHg POC pO2 97 H (80-95) mmHg POC HCO3 23 (19-24) deborah/L POC Base Excess -3.0 (-9-1.8) deborah/L POC ABG O2 Sat 97.0 H (90-95) % POC Sodium 137 141 (135-144) mmol/L Sodium (136-145) mmol/L POC Potassium 3.6 3.7 (3.3-5.0) mmol/L Potassium (3.5-5.1) mmol/L POC Chloride 100 L (101-112) mmol/L Chloride (98-107) mmol/L Carbon Dioxide (21-32) mmol/L POC Total CO2 25 26 (24-31) mmol/L Anion Gap (3-11) POC Anion Gap 20.0 (16-25) mmol/L POC BUN 15 (7-18) mg/dl BUN (7-18) mg/dl Creatinine (0.6-1.2) mg/dl POC Creatinine 0.7 (0.6-1.3) mg/dl Est Cr Clr Drug Dosing ml/min Est GFR ( Amer) ml/min Est GFR (Non-Af Amer) ml/min BUN/Creatinine Ratio (10-20) Glucose (70-99) mg/dl POC Glucose (70-99) mg/dl POC Glucose (other) 253 H (70-99) mg/dl Calcium (8.5-10.1) mg/dl POC Ioniz Calcium Corey 1.24 (1.12-1.32) mmol/l Phosphorus (2.5-4.9) mg/dl Magnesium (1.8-2.4) mg/dl Troponin I (0-0.045) ng/ml Resident Activity Tracking Resident Involvement: Resident Care Provided Care Provided: Adult [facility] Medicine
[2021-05-22] MEDS ORDERED: SODIUM PHOSPHATE 12 MMOL in SODIUM CHLORIDE 0.9% 250 ML IV ONE (08:00)
--- NOTE | 2021-05-22 08:20 | XRay Report ---
XR chest 1V portable HISTORY: Pulmonary edema. Shortness of breath. Follow-up. COMPARISON: Chest 05/21/2021. FINDINGS: No pneumothorax. No pleural effusions. The cardiac silhouette remains enlarged. Significant ly improved aeration within the lungs compared the prior study. IMPRESSION: Significant improved aeration within the lungs consistent with resolving edema/pneumonia. ACT 112: Negative or not required by law. Electronically signed by: Kevin Galarza M.D. 05/22/2021 8:19 AM
[2021-05-22] MEDS: FUROSEMIDE 20 MG in SYRINGE 0 ML IV SCH (08:25)
[2021-05-22] MEDS ORDERED: CLOPIDOGREL BISULFATE 75 MG TAB PO SCH (09:00)
[2021-05-22] MEDS ORDERED: HEPARIN (PORCINE) 1000 UNIT/ML 10 ML (CATH LAB USE ONLY) ONE (09:19)
[2021-05-22] MEDS ORDERED: MIDAZOLAM HCL 1 MG/ML 2ML VIAL ONE (09:19)
[2021-05-22] MEDS ORDERED: fentaNYL citrate 100 MCG/2 ML VIAL ONE (09:19)
[2021-05-22] MEDS ORDERED: niCARdipine HCL INJ 2.5 MG/ML 10 ML AMP ONE (09:19)
[2021-05-22] MEDS ORDERED: NITROGLYCERIN/D5W 100MCG/ML 20ML SYR ONE (09:19)
--- NOTE | 2021-05-22 09:34 | Billing Data ---
Date of Service May 22, 2021 Coding Level of Care Code Critical Care 1st 30-74 mins Time Spent (min) 35
--- NOTE | 2021-05-22 09:41 | Pre Anesthesia Assessment ---
Date of Service May 22, 2021 Pre Sedation Assessment Vital Signs Temp Pulse Pulse Resp BP BP Pulse Ox 05/22/21 10:31 88 17 141/83 H 92 05/22/21 10:22 86 17 141/83 H 91 05/22/21 09:16 95 H 213/130 H 05/22/21 08:00 36.8 C 86 20 150/84 H 95 05/22/21 07:00 88 24 145/88 H 93 05/22/21 06:00 67 18 157/92 H 86 L 05/22/21 05:01 90 15 171/113 H 95 05/22/21 04:01 36.7 C 151/83 H 05/22/21 03:01 81 19 134/79 93 05/22/21 02:01 84 15 132/72 91 05/22/21 01:01 88 16 121/82 92 05/22/21 00:00 93 H 20 93 05/21/21 23:02 86 16 05/21/21 22:00 81 18 137/76 93 05/21/21 21:00 79 17 131/81 91 05/21/21 20:00 92 H 15 149/90 H 90 05/21/21 19:00 88 23 129/73 91 05/21/21 18:00 85 19 114/55 L 91 05/21/21 17:00 85 21 117/69 93 05/21/21 16:00 90 18 97/55 L 92 05/21/21 15:05 90 05/21/21 14:00 88 16 117/76 97 05/21/21 13:00 97 H 23 105/69 93 Cardiovascular + regular rate and + regular rhythm + S1 normal and + S2 normal; no murmur no edema Respiratory + respiratory effort normal Pre-Sedation Airway Assessment Smoking Status: Never smoker Hx Sleep Apnea: No Short, Thick Neck: No Thyromental Distance: > or= 3.5 Finger Breadths Oral Cavity: + WNL Mallampati Class: IV 3 ASA: ASA3 NPO Status Date of Last Intake of Fluids: 05/21/21 Date of Last Intake of Solid Food: 05/21/21 Procedure Planning Contraindications for Sedation: none Current Medications Reviewed: Yes Notes The planned sedation has been discussed with the patient. Informed Consent was obtained. I have identified the patient, determined the appropriateness of sedation and have assessed the patient immediately prior to the procedure. All medicine(s) and interventions are by my order.
[2021-05-22] MEDS ORDERED: POTASSIUM CHLORIDE CRTAB 20 MEQ TABCR PO ONE (09:47)
--- NOTE | 2021-05-22 10:18 | Post Anesthesia Assessment ---
Date of Service May 22, 2021 Post Sedation Assessment Vital Signs Temp Pulse Pulse Resp BP BP Pulse Ox 05/22/21 10:31 88 17 141/83 H 92 05/22/21 10:22 86 17 141/83 H 91 05/22/21 09:16 95 H 213/130 H 05/22/21 08:00 36.8 C 86 20 150/84 H 95 05/22/21 07:00 88 24 145/88 H 93 05/22/21 06:00 67 18 157/92 H 86 L 05/22/21 05:01 90 15 171/113 H 95 05/22/21 04:01 36.7 C 151/83 H 05/22/21 03:01 81 19 134/79 93 05/22/21 02:01 84 15 132/72 91 05/22/21 01:01 88 16 121/82 92 05/22/21 00:00 93 H 20 93 05/21/21 23:02 86 16 05/21/21 22:00 81 18 137/76 93 05/21/21 21:00 79 17 131/81 91 05/21/21 20:00 92 H 15 149/90 H 90 05/21/21 19:00 88 23 129/73 91 05/21/21 18:00 85 19 114/55 L 91 05/21/21 17:00 85 21 117/69 93 05/21/21 16:00 90 18 97/55 L 92 05/21/21 15:05 90 05/21/21 14:00 88 16 117/76 97 05/21/21 13:00 97 H 23 105/69 93 Recovery Score Circulation: +/-20% PreAnes Value Consciousness: Arouseable (by name) Oxygen Saturation: > 92% On Room Air Discharge Sedation Level of Care: Phase I Post Sedation Plan On clinical assessment, the patient appears to have tolerated the sedation without complications. Patient is recovering as anticipated. Patient will continue to be monitored by nursing and may be discharged when sedation discharge criteria are met per below protocol. Upon Completions of procedure up to 15 minutes continue every 5 minute vital signs and the P.A.R. score; then discharge to a Phase I or Fast Track to Phase II per the following guidelines: * Discharge Patient to appropriate Phase II area if PAR is 8 or greater or return to pre- procedure baseline. The post - procedure orders will be as directed. * If PAR score is less than 8 or not return to pre-procedure baseline then patient will follow Phase I monitoring till PAR is reached for Phase II. The Phase I may be done in procedure room or may call to secure a Phase I area. * If naloxone or flumazenil are used for reversal, hold in Phase I for continued monitoring from when last reversal dose was given for a minimum of 60 minutes or longer pending the nurse and/or physician discretion of patient condition before discharge to Phase II. Please call the Sedation Physician to re-evaluate and complete post-note for discharge to Phase II area. Do NOT discharge from procedure sedation or Phase 1 until post- sedation evaluation note is complete by procedure /sedation MD Sedation Discharge Instructions to be given to the patient at discharge to home.
--- NOTE | 2021-05-22 10:30 | Cardiac Catheterization ---
Cardiac Cath Procedure Full Procedure Date May 22, 2021 Pre-Procedure Diagnosis Pre-Procedure Diagnosis: Non STEMI AUC Score AUC Score: 8 Post-Procedure Diagnosis Post-Procedure Diagnosis: Moderate CAD (Branch vessel disease) Procedure(s) Performed Procedure(s) Performed: Coronary Angiography and Left Heart Cath Senior [employer] Et[employer] Developer Mayito Thorne DO Scientist Engineer(s) Eber RTR Estimated Blood Loss Estimated Blood Loss: 5cc Medication(s) Medication(s): Fentanyl, Heparin, Lidocaine 1%, Nicardipine, Nitroglycerin and Versed Summary of Findings Branch vessel coronary artery disease involving the first and second diagonal. Normal left ventricular end-diastolic pressure. Hemodynamics Rest Ao:: 107/76/89 Final Ao: 114/72/89 LV: 108/6/9 Recommendations Recommendations: Medical Therapy and/or Counseling Radiation Exposure (mGy) 867 Contrast (mls) 50 Fluids (cc crystalloids) Fluids (cc crystalloids): 81 Nss Anesthesia Moderate sedation. Start 0947. And 1012. Sedation monitor: Jeb LÓPEZ Procedural Complication(s) None Disposition Disability Manager Holding/Recovery I attest to the content of the Intraoperative Record and any orders documented therein. Any exceptions are noted below. ACC Data: Disability Manager Cardiac Status Clinical evaluation leading to the procedure CAD Presenation: Non STEMI Heart Failure: NYHA Class: CCS IV Cardiogenic Shock within 24 Hours: No Cardiac Arrest within 24 Hours: No Imaging Studies Past 6 Months: Yes Stress Studies Past 6 Months: No STEMI OR Non-STEMI Symptom Onset Date: 05/20/21 Symptom Onset Time: 02:00 Thrombolytics: No Coronary Anatomy Dominant: Left Left Main (% Stenosis): Normal LAD (% Stenosis): Proximal (20%), Mid (20%) and Distal (20%) D1 (% Stenosis): Ostial (50%) D2 (% Stenosis): Ostial (70%) Circumflex (% Stenosis): Mid (30%) and Distal (10%) OM1 (% Stenosis): Normal (1.5mm vessel) OM2 (% Stenosis): Normal L PL1 (% Stenosis): Normal L PL2 (% Stenosis): Normal L PDA (% Stenosis): Proximal (30%) RCA (% Stenosis): Proximal (20%) Ramus (% Stenosis): Normal (small vessel) Diagnostic Physicians Name: Mayito O Kopinski, DO Closure Device Percutaneous Entry Location: Radial Closure Device: Radial Band Recommendations: Medical Therapy and/or Counseling Intraprocedure Events Significant Disection: No Perforation: No
[2021-05-22] MEDS: METOPROLOL TARTRATE 25 MG TAB PO SCH ×2 (10:59→20:36)
[2021-05-22] MEDS: PANTOprazole 40 MG TAB PO SCH (11:01)
[2021-05-22] MEDS: LOSARTAN POTASSIUM 25 MG TAB PO SCH (11:01)
[2021-05-22] MEDS: ATORVASTATIN 40 MG TAB PO SCH (11:01)
[2021-05-22] MEDS: ASPIRIN 81 MG CHEW PO SCH (11:02)
--- NOTE | 2021-05-22 12:42 | Cardiology Progress Note ---
Date of Service May 22, 2021 Assessment & Plan (1) Acute on chronic heart failure with preserved ejection fraction (HFpEF): (2) Hypertensive emergency: (3) Non-ST elevation (NSTEMI) myocardial infarction: (4) LBBB (left bundle branch block): Plan: Cardiac catheterization revealing nonobstructive coronary artery disease of the LAD, left main, circumflex, and RCA. There is branch vessel stenosis of the diagonal as documented under separate report. Medical management recommended with aspirin, high intensity statin, ARB and beta-alvarado therapy. Consider addition of long-acting nitrates if patient experiences recurrent anginal symptoms. Plavix and intravenous heparin discontinued. She was treated with diuretic therapy yesterday for flash pulmonary edema. I suspect symptoms and condition related to medication noncompliance, and hypertensive emergency. Recommend holding diuretic therapy today. Left bundle branch appears to be intermittent and at times rate related. Patient may be transferred to the progressive care unit from a cardiac persp ective. Admission and Anticipated Discharge Date Admission Date: May 21, 2021 Subjective Patient seen and examined at the bedside post cardiac catheterization. Interview performed via remote american sign language interpreter. Patient tolerated cardiac catheterization without complication. Coronary angiography revealed branch vessel coronary disease involving ostial diagonal branch vessel, no significant stenosis of left main, LAD, left circumflex, or nondominant right coronary artery. The left ventricular end-diastolic pressure was 9 mmHg. She is currently resting comfortably supine. No orthopnea or PND overnight. Denies recurrent chest discomfort or shortness of breath. Blood pressure elevated prior to procedure related to stress and anxiety. Her pressure has improved significantly with sedation. No orthopnea, PND, or edema. Patient denies palpitations, lightheadedness, or dizziness. Tolerating current medications. Review of Systems Review of Systems: All systems reviewed & are unremarkable except as noted in Subjective Physical Exam Constitutional: well developed and well nourished ENMT: Mallampati Class: IV Respiratory: normal respiratory effort; no respiratory distress, no labored breathing and no retractions Auscultation: + diminished lung sounds (Bases bilateral); no rales, no rhonchi and no wheezes Cardiovascular: Rate/Rhythm: regular rate and regular rhythm Heart Sounds: normal S1 and normal S2; no gallop, no murmur and no cardiac rub Palpation: normal PMI Vessels: radial pulses present; no JVD and no carotid bruit Extremities: no edema Gastrointestinal (Abdomen): Inspection/Auscultation: abdomen normal to inspection and normal bowel sounds; abdomen not distended Percussion/Palpation: abdomen soft; abdomen nontender, no guarding and abdomen not rigid Neurologic: CN's II-XI intact bilaterally and moves all extremities; no focal motor deficits Motor/Sensory: no tremor Results & Data ([facility]) Vital Signs (Past 12 Hours) Vital Signs Temp Pulse Pulse Resp BP BP Pulse Ox 05/22/21 10:31 88 17 141/83 H 92 05/22/21 10:22 86 17 141/83 H 91 05/22/21 09:16 95 H 213/130 H 05/22/21 08:00 36.8 C 86 20 150/84 H 95 05/22/21 07:00 88 24 145/88 H 93 05/22/21 06:00 67 18 157/92 H 86 L 05/22/21 05:01 90 15 171/113 H 95 05/22/21 04:01 36.7 C 151/83 H 05/22/21 03:01 81 19 134/79 93 05/22/21 02:01 84 15 132/72 91 05/22/21 01:01 88 16 121/82 92
[2021-05-23] MEDS: INSULIN ASPART 100 UNITS/ML 3 ML PEN SC SCH ×3 (00:54→12:44)
[2021-05-23 05:52] LABS: Basophils # (auto) 0.03 K/uL (0-0.2); Basophils % (auto) 0.3 %; Eosinophils # (auto) 0.13 K/uL (0-0.5); Eosinophils % (auto) 1.2 %; Hematocrit (blood only) 38.3 % (37-47); Hemoglobin 12.2 g/dL (12.0-16.0); Immature Granulocytes # (auto) 0.06 K/uL (0.00-0.02); Immature Granulocytes % (auto) 0.5 %; Lymphocytes # (auto) 3.99 K/uL (1.2-3.4); Lymphocytes % (auto) 36.3 %; Mean Corpuscular Hemoglobin 26.3 pg (25-34); Mean Corpuscular Hgb Conc 31.9 g/dL (32-36); Mean Corpuscular Volume 82.7 fL (80-100); Mean Platelet Volume 9.7 fL (7.4-10.4); Monocytes # (auto) 0.98 K/uL (0.11-0.59); Monocytes % (auto) 8.9 %; Neutrophils # (auto) 5.79 K/uL (1.4-6.5); Neutrophils % (auto) 52.8 %; Platelet Count 366 K/uL (130-400); RDW Coefficient of Variation 14.6 % (11.5-14.5); RDW Standard Deviation 44.1 fL (36.4-46.3); Red Blood Count 4.63 M/uL (4.2-5.4); White Blood Count 10.98 K/uL (4.8-10.8)
[2021-05-23 06:18] LABS: BUN Creatinine Ratio 15.6 (10-20); Calcium 9.1 mg/dl (8.5-10.1); Creatinine Clr Calc Pharmacy 91.2 ml/min; Est GFR (African American) 108.5 ml/min; Est GFR (Non-African American) 93.6 ml/min; Magnesium 2.2 mg/dl (1.8-2.4); Phosphorus 3.3 mg/dl (2.5-4.9); Potassium 4.1 mmol/L (3.5-5.1)
--- NOTE | 2021-05-23 06:19 | Electrocardiogram Report ---
Test Reason : Blood Pressure : / mmHG Vent. Rate : 086 BPM Atrial Rate : 086 BPM P-R Int : 156 ms QRS Dur : 090 ms QT Int : 456 ms P-R-T Axes : 063 054 126 degrees QTc Int : 545 ms Normal sinus rhythm Possible Left atrial enlargement Poor R wave progression, consider anterior [place] vs. lead placement vs. LVH Prolonged QT Abnormal ECG When compared with ECG of 21-MAY-2021 07:50, Left bundle branch block is no longer Present T wave inversion now evident in Anterior leads Confirmed by Spenser Lewis ([id number]) on 05/23/2021 6:18:41 AM Referred By: REFERRED SELF Confirmed By:Spenser Lewis
--- NOTE | 2021-05-23 06:53 | XRay Report ---
XR chest 1V portable CLINICAL HISTORY: Pulmonary edema. COMPARISON STUDY: Chest radiograph May 22, 2021. FINDINGS: Lung volumes are normal. There is no pneumothorax or pleural effusion. Cardiomegaly is unch anged. There has been continued improvement in airspace opacities and interstitial thickening since p rior exam. IMPRESSION: Continued improvement in suspected pulmonary edema ACT 112: Negative or not required by law. Electronically signed by: Tim Dueñas M.D. 05/23/2021 6:52 AM
--- NOTE | 2021-05-23 09:04 | Hospitalist Progress Note ---
Date of Service May 23, 2021 Assessment & Plan (1) Acute on chronic heart failure with preserved ejection fraction (HFpEF): (2) Respiratory failure: (3) Acute pulmonary edema: (4) Hypertensive emergency: (5) Elevated troponin I level: (6) LBBB (left bundle branch block): (7) Non-ST elevation (NSTEMI) myocardial infarction: Plan: NSTEMI Acute HF w/ pEF LBBB This is a 55-year-old female, who presents with acute shortness of breath. 1. Acute shortness of breath-respiratory failure with hypoxia: Most likely secondary to hypertensive emergency, flash pulmonary edema. The patient stopped her medication 3 days ago because of itchiness in the hand, she thought medication could be contributing to it. Received IV Lasix and was placed on BiPAP and nitro drip on admission. Continued iv Lasix The patient is feeling better, clinically much improved. Chest pain resolved, shortness of breath resolved. Troponin elevated ICU and cardiology consulted on admission. Echocardiogram - low normal LV systolic function. EF 50 to 55%. There is mild concentric LVH. Septal motion is consistent with conduction abnormality. There is mild mitral regurg. Pulse-wave TDI of the anterior and posterior mitral annulus demonstrates abnormal LV relaxation. Underwent cardiac cath today (05/22) - revealing nonobstructive coronary artery disease of the LAD, left main, circumflex, and RCA. There is branch vessel stenosis of the diagonal as documented under separate report. Medical management recommended with aspirin, high intensity statin, ARB and beta-alvarado therapy. Consider addition of long-acting nitrates if patient experiences recurrent anginal symptoms. Plavix and intravenous heparin discontinued. Left bundle branch appears to be intermittent and at times rate related. Plan to discharge patient on aspirin, metoprolol 12.5 mg twice a day, atorvastatin 80 mg daily, and losartan. Stopped HCTZ. Follow-up with primary care physician and airplane technician. 2. Hypertensive emergency: Initially on nitro drip. Continued her home losartan. Hydrochlorothiazide stopped. Adjusted blood pressure medications as above. BP now well controlled 3. Mild elevation of troponin. Chest discomfort -improved now. Ekg changes- LBBB. No old ekg to compare. Mostly demand ischemia. Followed serial CE and echo and discussed w/cardiology - as above 4. Leukocytosis: Could be reactive. WBC now down to 11k. No signs of infection at this time, Abx not indicated. 5. Diabetes: Hold her metformin. Placed on insulin sliding scale. Follow the blood sugars. Follow HbA1c levels. 6. Hyperlipidemia: Continue statin. DVT prophylaxis: initially Lovenox, then IV heparin which is now stopped. SCDs DISPOSITION: Plan to discharge home and follow up with family doctor and airplane technician. Code: Full Admission and Anticipated Discharge Date Admission Date: May 21, 2021 Subjective Patient seen in follow-up of respiratory failure, in the setting of flash pulmonary edema, hypertensive emergency, NSTEMI acute CHF exacerbation Currently laying in bed, in no acute distress, on room air Reports she had some chest discomfort prior to coming to the hospital but not after she came to the hospital Underwent cardiac cath yesterday Currently feeling much better and has no complaints -specifically denies any dizziness lightheadedness chest pain shortness of breath, ambulating in the room without difficulty Review of Systems Review of Systems: All systems reviewed & are unremarkable except as noted in Subjective Physical Exam Physical Exam: GENERAL: WD/WN F laying in bed, in no acute distress HEENT: NC/AT, EOMI, Pupils, extraocular muscles intact. NECK: No JVD, no neck masses. CARDIOVASCULAR: S1 and S2 heard. RRR. No murmurs. RESPIRATORY: Normal AP diameter. No accessory muscle use. mild bilateral crackles (much improved from previous exam). No wheezing. ABDOMEN: Soft, bowel sounds present, nontender, no distention. NEURO: Alert and awake. Answers questions appropriately. Speech fluent, no facial asymmetry. Moves extremities. EXTREMITIES: No LE edema, no erythema seen. Results & Data Results & Data ([facility]) Vital Signs (Past 12 Hours) Vital Signs Temp Pulse Pulse Resp BP BP Pulse Ox 05/23/21 07:43 36.6 C 70 14 126/68 93 05/23/21 02:01 80 16 133/84 95 05/23/21 00:26 36.8 C 05/22/21 23:43 70 16 127/79 94 05/22/21 22:10 78 21 132/83 94 05/22/21 21:08 36.7 C Laboratory Results 05/23/21 05/23/21 05/22/21 Range/Units 05:28 05:28 23:45 WBC 10.98 H (4.8-10.8) K/uL RBC 4.63 (4.2-5.4) M/uL Hgb 12.2 (12.0-16.0) g/dL Hct 38.3 (37-47) % MCV 82.7 (80-100) fL MCH 26.3 (25-34) pg MCHC 31.9 L (32-36) g/dL RDW Std Deviation 44.1 (36.4-46.3) fL RDW Coeff of Roma 14.6 H (11.5-14.5) % Plt Count 366 (130-400) K/uL MPV 9.7 (7.4-10.4) fL Immature Gran % (Auto) 0.5 % Neut % (Auto) 52.8 % Lymph % (Auto) 36.3 % [place] % (Auto) 8.9 % Eos % (Auto) 1.2 % Baso % (Auto) 0.3 % Neut # (Auto) 5.79 (1.4-6.5) K/uL Lymph # (Auto) 3.99 H (1.2-3.4) K/uL [place] # (Auto) 0.98 H (0.11-0.59) K/uL Eos # (Auto) 0.13 (0-0.5) K/uL Baso # (Auto) 0.03 (0-0.2) K/uL Immature Gran # (Auto) 0.06 H (0.00-0.02) K/uL Sodium 138 (136-145) mmol/L Potassium 4.1 D (3.5-5.1) mmol/L Chloride 106 (98-107) mmol/L Carbon Dioxide 27 (21-32) mmol/L Anion Gap 5.0 (3-11) BUN 11 (7-18) mg/dl Creatinine 0.72 (0.6-1.2) mg/dl Est Cr Clr Drug Dosing 91.2 ml/min Est GFR ( Amer) 108.5 ml/min Est GFR (Non-Af Amer) 93.6 ml/min BUN/Creatinine Ratio 15.6 (10-20) Glucose 129 H (70-99) mg/dl POC Glucose 122 H (70-99) mg/dl Calcium 9.1 (8.5-10.1) mg/dl Phosphorus 3.3 (2.5-4.9) mg/dl Magnesium 2.2 (1.8-2.4) mg/dl 05/22/21 05/22/21 05/22/21 Range/Units 20:50 16:07 11:04 WBC (4.8-10.8) K/uL RBC (4.2-5.4) M/uL Hgb (12.0-16.0) g/dL Hct (37-47) % MCV (80-100) fL MCH (25-34) pg MCHC (32-36) g/dL RDW Std Deviation (36.4-46.3) fL RDW Coeff of Roma (11.5-14.5) % Plt Count (130-400) K/uL MPV (7.4-10.4) fL Immature Gran % (Auto) % Neut % (Auto) % Lymph % (Auto) % [place] % (Auto) % Eos % (Auto) % Baso % (Auto) % Neut # (Auto) (1.4-6.5) K/uL Lymph # (Auto) (1.2-3.4) K/uL [place] # (Auto) (0.11-0.59) K/uL Eos # (Auto) (0-0.5) K/uL Baso # (Auto) (0-0.2) K/uL Immature Gran # (Auto) (0.00-0.02) K/uL Sodium (136-145) mmol/L Potassium (3.5-5.1) mmol/L Chloride (98-107) mmol/L Carbon Dioxide (21-32) mmol/L Anion Gap (3-11) BUN (7-18) mg/dl Creatinine (0.6-1.2) mg/dl Est Cr Clr Drug Dosing ml/min Est GFR ( Amer) ml/min Est GFR (Non-Af Amer) ml/min BUN/Creatinine Ratio (10-20) Glucose (70-99) mg/dl POC Glucose 132 H 113 H 123 H (70-99) mg/dl Calcium (8.5-10.1) mg/dl Phosphorus (2.5-4.9) mg/dl Magnesium (1.8-2.4) mg/dl Medications Administered Current Inpatient Medications Acetaminophen (Acetaminophen 325 Mg Tab) 650 mg PO Q4H PRN PRN Reason: Headache Stop: 06/20/21 09:49 Last Admin: 05/21/21 21:38 Dose: 650 mg Documented by: Aspirin (Aspirin 81 Mg Chew) 81 mg PO DAILY CONSTANZA Stop: 06/21/21 08:59 Last Admin: 05/22/21 11:02 Dose: 81 mg Documented by: Atorvastatin Calcium (Atorvastatin 40 Mg Tab) 80 mg PO DAILY CONSTANZA Stop: 06/20/21 08:59 Last Admin: 05/22/21 11:01 Dose: 80 mg Documented by: Dextrose (Dextrose 50% 50 Ml Syringe) 25 - 50 ml IV UD PRN; Protocol PRN Reason: Hypoglycemia Protocol Stop: 06/20/21 07:14 Glucagon (Glucagon For Inj 1 Mg Vial) 1 mg IM UD PRN; Protocol PRN Reason: Hypoglycemia Protocol Stop: 06/20/21 07:14 Glucose (Glucose 40% Gel 15 Gm Tube) 15 - 30 gm PO UD PRN; Protocol PRN Reason: Hypoglycemia Protocol Stop: 06/20/21 07:14 Glucose (Glucose 10 Tabs/Tube) 4 - 8 tabs PO UD PRN; Protocol PRN Reason: Hypoglycemia Protocol Stop: 06/20/21 07:14 Furosemide 20 mg/ Syringe 2 mls @ 4 mls/min IV DAILY CONSTANZA Stop: 06/21/21 08:59 Last Admin: 05/22/21 08:25 Dose: 4 mls/min Documented by: Insulin Aspart (Insulin Aspart 100 Units/Ml 3 Ml Pen) 0 units SC Q6 CONSTANZA Stop: 06/20/21 11:59 Last Admin: 05/23/21 06:28 Dose: Not Given Documented by: Losartan Potassium (Losartan Potassium 25 Mg Tab) 25 mg PO DAILY CONSTANZA Stop: 06/20/21 08:59 Last Admin: 05/22/21 11:01 Dose: 25 mg Documented by: Metoprolol Tartrate (Metoprolol Tartrate 25 Mg Tab) 12.5 mg PO BID CONSTANZA Stop: 06/20/21 12:14 Last Admin: 05/22/21 20:36 Dose: 12.5 mg Documented by: Miscellaneous (Order Awaiting Action [Betamethasone Dipropionate 0.05 % Oint]) 1 ea N/A QS CONSTANZA Stop: 06/20/21 07:59 Last Admin: 05/23/21 08:26 Dose: Not Given Documented by: Miscellaneous (Carbohydrates For Hypoglycemia ) 15 - 30 gm PO UD PRN PRN Reason: Hypoglycemia Treatment Stop: 06/20/21 07:14 Pantoprazole Sodium (Pantoprazole 40 Mg Tab) 40 mg PO [facility] Stop: 06/20/21 08:59 Last Admin: 05/22/21 11:01 Dose: 40 mg Documented by: (1) Respiratory failure Chronicity: acute Respiratory failure complication: hypoxia Qualified Code(s): J96.01 - Acute respiratory failure with hypoxia
[2021-05-23] MEDS: ACETAMINOPHEN 325 MG TAB PO PRN (09:23)
[2021-05-23] MEDS: METOPROLOL TARTRATE 25 MG TAB PO SCH (09:23)
[2021-05-23] MEDS: LOSARTAN POTASSIUM 25 MG TAB PO SCH (09:24)
[2021-05-23] MEDS: PANTOprazole 40 MG TAB PO SCH (09:24)
[2021-05-23] MEDS: ATORVASTATIN 40 MG TAB PO SCH (09:24)
[2021-05-23] MEDS: ASPIRIN 81 MG CHEW PO SCH (09:25)
[2021-05-23] MEDS: FUROSEMIDE 20 MG in SYRINGE 0 ML IV SCH (09:26)
--- NOTE | 2021-05-23 12:18 | Cardiology Progress Note ---
Date of Service May 23, 2021 Assessment & Plan (1) Acute on chronic heart failure with preserved ejection fraction (HFpEF): (2) Hypertensive emergency: (3) Non-ST elevation (NSTEMI) myocardial infarction: Plan: Mild coronary atherosclerosis only (4) LBBB (left bundle branch block): Plan: Patient presented with pulmonary edema secondary to hypertensive urgency now clinically improved on appropriate medical therapies. Would continue current medical regimen including beta-alvarado on discharge. CHF instructions to be administered Follow-up PCP 1 week's time Cardiology 2 to 4 weeks time Admission and Anticipated Discharge Date Admission Date: May 21, 2021 Subjective Patient was seen and examined, chart, medications, telemetry reviewed. Discussion made with patient with the use of online mold sander. No chest pains or worsening shortness of breath. Back bothering her from having been in bed overnight. No fevers or chills. Cardiac catheterization access site healing well. Blood pressures controlled Patient up in room without difficulty Review of Systems Review of Systems: All systems reviewed & are unremarkable except as noted in Subjective Physical Exam Constitutional: WD/WN, vitals as above no acute distress Eyes: PERRL, conjunctivae normal, anicteric sclerae ENMT: external ear and nose normal, oropharynx normal Neck: trachea midline, no thyromegaly Respiratory: normal respiratory effort, lungs clear to auscultation Cardiovascular: RRR, no murmur, no edema Vessels: radial pulses present (Cardiac catheterization access site healing well); no JVD Extremities: no edema Gastrointestinal (Abdomen): normal bowel sounds, soft, nontender, no hepatosplenomegaly Musculoskeletal: no cyanosis or clubbing, extremities motor strength 5/5 Results & Data ([facility]) Vital Signs (Past 12 Hours) Vital Signs Temp Pulse Pulse Resp BP BP Pulse Ox 05/23/21 11:42 36.6 C 70 16 119/85 94 05/23/21 07:43 36.6 C 70 14 126/68 93 05/23/21 07:26 36.1 C L 88 14 126/68 96 05/23/21 06:10 76 17 147/101 H 93 05/23/21 02:10 73 16 142/83 H 96 05/23/21 02:01 80 16 133/84 95 05/23/21 00:26 36.8 C Laboratory Results Laboratory Results - last 24 hr 09/12/0705/22/21 05/22/21 16:07 20:50 23:45 WBC RBC Hgb Hct MCV MCH MCHC RDW Std Deviation RDW Coeff of Roma Plt Count MPV Immature Gran % (Auto) Neut % (Auto) Lymph % (Auto) [place] % (Auto) Eos % (Auto) Baso % (Auto) Neut # (Auto) Lymph # (Auto) [place] # (Auto) Eos # (Auto) Baso # (Auto) Immature Gran # (Auto) Sodium Potassium Chloride Carbon Dioxide Anion Gap BUN Creatinine Est Cr Clr Drug Dosing Est GFR ( Amer) Est GFR (Non-Af Amer) BUN/Creatinine Ratio Glucose POC Glucose 113 H 132 H 122 H Calcium Phosphorus Magnesium 05/23/21 05/23/21 05/23/21 05:28 05:28 11:34 WBC 10.98 H RBC 4.63 Hgb 12.2 Hct 38.3 MCV 82.7 MCH 26.3 MCHC 31.9 L RDW Std Deviation 44.1 RDW Coeff of Roma 14.6 H Plt Count 366 MPV 9.7 Immature Gran % (Auto) 0.5 Neut % (Auto) 52.8 Lymph % (Auto) 36.3 [place] % (Auto) 8.9 Eos % (Auto) 1.2 Baso % (Auto) 0.3 Neut # (Auto) 5.79 Lymph # (Auto) 3.[address] [place] # (Auto) 0.98 H Eos # (Auto) 0.13 Baso # (Auto) 0.03 Immature Gran # (Auto) 0.06 H Sodium 138 Potassium 4.1 D Chloride 106 Carbon Dioxide 27 Anion Gap 5.0 BUN 11 Creatinine 0.72 Est Cr Clr Drug Dosing 91.2 Est GFR ( Amer) 108.5 Est GFR (Non-Af Amer) 93.6 BUN/Creatinine Ratio 15.6 Glucose 129 H POC Glucose 113 H Calcium 9.1 Phosphorus 3.3 Magnesium 2.2
--- NOTE | 2021-05-23 12:20 | Electrocardiogram Report ---
Test Reason : Blood Pressure : / mmHG Vent. Rate : 085 BPM Atrial Rate : 085 BPM P-R Int : 132 ms QRS Dur : 094 ms QT Int : 402 ms P-R-T Axes : 062 048 122 degrees QTc Int : 478 ms Normal sinus rhythm T wave abnormality, consider anterolateral ischemia Prolonged QT Abnormal ECG When compared with ECG of 21-MAY-2021 15:47, QT has shortened Confirmed by Zeus Pérez ([id number]) on 05/23/2021 12:19:57 PM Referred By: REFERRED SELF Confirmed By:Jt Pérez
--- NOTE | 2021-05-23 13:06 | Discharge Summary ---
Date of Service May 23, 2021 Admission HPI Per Admitting Provider A 55-year-old female, she is from [facility]. She speaks Beth. . Son is in the room helping with her H and P. Comes here because of shortness of breath. The patient has past medical history significant for hypertension, hyperlipidemia, diabetes. The patient went to sleep okay, but she woke in the middle of the night with acute shortness of breath, could not breathe, and lot of cough and had some chest discomfort and some blurred vision and she was brought into the ER. When she came into the ER, she was very restless and she was placed on BiPAP, at one pont the ER physician thought of intubating her. She was tachycardic and systolic blood pressure was in 230s. Could not get Initial EKG, but repeat EKG showed some bundle-branch block. We do not have old EKG to compare and troponin was slightly elevated at 0.05 and chest x-ray showed bilateral pulmonary congestion and pulmonary edema. ER gave a dose of Lasix and started on nitro drip. With the blood pressure improving, her symptoms impr liv. She is still on BiPAP. She is feeling better. Chest pain has resolved. The ER physician also talked to the supervisor carding protection engineer, , with EKG findings, as the patient's chest pain improved no plan for emergent cardiac catheterization, but the patient may end up needing cardiac catheterization during this hospitalization. The patient is currently resting comfortably. Denies any headache, denies any blurred visions. Had some itchiness in the ear earlier that has resolved. No runny nose, no sore throat, no fevers. Appetite is okay. Currently, no chest pain. Shortness of breath is improving. No nausea, no abdominal pain. Normal bowel and bladder movements. Stool was somewhat loose in the morning. She described some swelling in the legs yesterday. The patient stopped taking all her medications three days ago because she was feeling dry hands and itchiness, the topical cream was not working and she thought the medications are causing her symptoms and when she stopped the medications, the itchiness is somewhat better improved.N recent change in medications. Admission Exam Per Admitting Provider GENERAL: The patient is obese, currently not in acute distress. VITAL SIGNS: Temperature afebrile, pulse 127, respiratory rate 26, blood pressure 164/99, currently on oxygen 96% on BiPAP. HEENT: Pupils, extraocular muscles intact. NECK: No JVD, no neck masses. CARDIOVASCULAR: S1 and S2 heard. Tachycardia. No murmurs. RESPIRATORY SYSTEM: Normal AP diameter. No accessory muscle use. Bilateral crackles. No rhonchi heard. No wheezing. ABDOMEN: Soft, bowel sounds present, nontender, no distention. CENTRAL NERVOUS SYSTEM: Alert and awake. Obeys commands. Moves extremities. EXTREMITIES: Trace edema, no erythema seen. Principal Diagnosis Acute on chronic heart failure with preserved ejection fraction (HFpEF): Respiratory failure: Acute pulmonary edema: Hypertensive emergency: LBBB (left bundle branch block): Non-ST elevation (NSTEMI) myocardial infarction: Discharge Exam GENERAL: WD/WN F laying in bed, in no acute distress HEENT: NC/AT, EOMI, Pupils, extraocular muscles intact. NECK: No JVD, no neck masses. CARDIOVASCULAR: S1 and S2 heard. RRR. No murmurs. RESPIRATORY: Normal AP diameter. No accessory muscle use. mild bilateral crackles (much improved from previous exam). No wheezing. ABDOMEN: Soft, bowel sounds present, nontender, no distention. NEURO: Alert and awake. Answers questions appropriately. Speech fluent, no facial asymmetry. Moves extremities. EXTREMITIES: No LE edema, no erythema seen. Discharge Data Allergies Allergy/AdvReac Type Severity Reaction Status Date / Time No Known Allergies Allergy Verified 05/21/21 03:07 Consultations 05/21/21 03:46 ED Decision to Admit Stat 05/21/21 06:11 Consult Regional Rehabilitation Director Routine 05/21/21 08:00 Consult Cardiology Routine 05/22/21 09:30 Consult Cardiac Catheterization Routine Procedures Performed Operation Date: 05/22/21 09:30 Actual Procedures p Cath, Left with Cors and Vent - Mayito Thorne DO s Cineradiography w/Routine Exam Jesika Thorne DO Ordered Studies 05/22/21 07:06 CL Cath Imgs for PACS use only Routine Hospital Course (1) Acute on chronic heart failure with preserved ejection fraction (HFpEF): (2) Respiratory failure: (3) Acute pulmonary edema: (4) Hypertensive emergency: (5) Elevated troponin I level: (6) LBBB (left bundle branch block): (7) Non-ST elevation (NSTEMI) myocardial infarction: NSTEMI Acute HF w/ pEF LBBB This is a 55-year-old female, who presents with acute shortness of breath. 1. Acute shortness of breath-respiratory failure with hypoxia: Most likely secondary to hypertensive emergency, flash pulmonary edema. The patient stopped her medication 3 days ago because of itchiness in the hand, she thought medication could be contributing to it. Received IV Lasix and was placed on BiPAP and nitro drip on admission. Continued iv Lasix The patient is feeling better, clinically much improved. Chest pain resolved, shortness of breath resolved. Troponin elevated ICU and cardiology consulted on admission. Echocardiogram - low normal LV systolic function. EF 50 to 55%. There is mild concentric LVH. Septal motion is consistent with conduction abnormality. There is mild mitral regurg. Pulse-wave TDI of the anterior and posterior mitral annulus demonstrates abnormal LV relaxation. Underwent cardiac cath today (05/22) - revealing nonobstructive coronary artery disease of the LAD, left main, circumflex, and RCA. There is branch vessel stenosis of the diagonal as documented under separate report. Medical management recommended with aspirin, high intensity statin, ARB and beta-alvarado therapy. Consider addition of long-acting nitrates if patient experiences recurrent anginal symptoms. Plavix and intravenous heparin discontinued. Left bundle branch appears to be intermittent and at times rate related. Plan to discharge patient on aspirin, metoprolol 12.5 mg twice a day, atorvastatin 80 mg daily, and losartan. Stopped HCTZ. Follow-up with primary care physician and supervisor carding. 2. Hypertensive emergency: Initially on nitro drip. Continued her home losartan. Hydrochlorothiazide stopped. Adjusted blood pressure medications as above. BP now well controlled 3. Mild elevation of troponin. Chest discomfort -improved now. Ekg changes- LBBB. No old ekg to compare. Mostly demand ischemia. Followed serial CE and echo and discussed w/cardiology - as above 4. Leukocytosis: Could be reactive. WBC now down to 11k. No signs of infection at this time, Abx not indicated. 5. Diabetes: Hold her metformin. Placed on insulin sliding scale. Follow the blood sugars. Follow HbA1c levels. 6. Hyperlipidemia: Continue statin. DVT prophylaxis: initially Lovenox, then IV heparin which is now stopped. SCDs DISPOSITION: Plan to discharge home and follow up with family doctor and supervisor carding. Code: Full Total Time Total Time Spent Total Time Spent (In Minutes): 40 Discharge Plan Discharge Items Patient Disposition: Home - Self-Care Reason For Visit: SOB Discharge Diagnosis: Acute on chronic heart failure with preserved ejection fraction (HFpEF): Respiratory failure: Acute pulmonary edema: Hypertensive emergency: LBBB (left bundle branch block): Non-ST elevation (NSTEMI) myocardial infarction: Condition on Discharge: Good Activity: Per Instructions section Non-emergency contact: Primary Care Provider and Identity Management Developer Call non-emergency contact if: you have any medication questions and your symptoms worsen Follow-up/Referrals: Maritza Lyles MD [Primary Care Provider] - (Date & Time 05/28/2021 2:20 PM Provider Maritza Lyles MD Department General Internal Medicine [facility] ) Diet: Heart Healthy Add Attending Provider Instructions: Follow-up with your primary care doctor, the appointment was scheduled for you for May 28. You also need to follow-up with a supervisor carding, in next couple of weeks, you will be contacted about the appointment. There were several medication changes made during this hospitalization. You were started on a new medication, metoprolol, take half a [id number] mg twice a day. Also start taking aspirin 81 mg daily. Your atorvastatin was increased from 20 mg to 80 mg daily. Do not take hydrochlorothiazide anymore. Continue taking losartan as previously prescribed. Lastly, for acid reflux, take pantoprazole daily as prescribed. Addtl Tech Ed/Woodshop Teacher Provider Instructions: Call your Primary Care doctor if any of the following symptoms or problems start or get worse: * Shortness of breath or difficulty breathing * Wake up at night short of breath * Chest pain * Cough * Swelling of your hands, feet, or legs * More fatigued or tired with your normal activity * Palpitations - sudden fast heart beats WEIGHT * Weigh yourself every morning after using the bathroom. * Use the same scale. * Wear the same amount of clothing. * Write your weight down on a chart. * Call your Primary Care doctor if you gain more than 2-3 pounds in 1-2 days. MEDICATIONS * Use this discharge instruction sheet for medication instructions. * Take your medications at the time your doctor ordered. * Do not skip a dose of your medicines. * If you miss a dose of medicine, take it as soon as possible, but DO NOT DOUBLE A DOSE. * Read your medicine information when you get home. * Know all of the side effects of your medicine. If in doubt, ask your pharmacist * Call your Primary Care doctor's office if you have any side effects. * Be sure all of your doctors know what medicine and herbs you take (including cold, flu, and herbal medicine). Take the following with you to your follow-up doctor appointments: * Weight Chart * Medication List * List of questions Do not drink excessive alcohol, beer or wine. Pending Studies at Discharge: No Stand-Alone Forms: My [facility] [employer], Smoking Cessation Medications and DC Order Prescriptions: New metoprolol tartrate 25 mg Tablet 12.5 mg PO BID Qty: 30 RF: 0 aspirin 81 mg tablet,delayed release (DR/EC) 81 mg PO DAILY Qty: 30 RF: 0 atorvastatin 40 mg Tablet 80 mg PO DAILY Qty: 60 RF: 0 pantoprazole 40 mg Tablet,Delayed Release (Dr/Ec) 40 mg PO QAM Qty: 30 RF: 0 Continued metformin 500 mg tablet 500 mg PO BIDM RF: 0 meloxicam 7.5 mg tablet 7.5 mg PO DAILY PRN (Reason: Pain) RF: 0 losartan 25 mg tablet 25 mg PO DAILY RF: 0 betamethasone dipropionate 0.05 % ointment 1 applic topical BID Qty: 45 RF: 0 Discontinued atorvastatin 20 mg tablet 20 mg PO DAILY RF: 0 hydrochlorothiazide 25 mg tablet 25 mg PO DAILY RF: 0 Discharge Orders: Discharge Order (Routine); Ordered 05/23/21 Ordered By: Broderick Weiss/Other Patient Handouts: A1C, High Blood Sugar (Hyperglycemia), Hypoglycemia (Low Blood Sugar), Managing Type 2 Diabetes, 5 Steps for Eating Healthier Admission Data Admit Date/Time: 05/21/21 04:54 Attending Provider: Broderick Aguilar Admit Provider: Mikey Jones Primary Care Provider: Maritza Lyles Other Providers: Mayito Thorne ; Mikey Jones ; Daksha Ojeda ; Jermain Underwood ; Devon Quinn ; Tanner Chao ; Ar Layne ; Slade Velázquez ; Livia Crabtree ; Cori Mohan ; Maya Mac. ; Blake Griffith
== END 2021-05-23 14:09 | disposition home or self-care (01) | DRG 280 ==
LOC: ED 02:55 → 1E 04:54

== ENCOUNTER 2021-07-02 17:07 | Observation (INO) ==
[2021-07-02] MEDS ORDERED: SODIUM CHLORIDE 0.9% 500 ML IV ONE (17:36)
--- NOTE | 2021-07-02 17:54 | Emergency Department Note ---
Impression & Plan Chest pain, LBBB (left bundle branch block), Coronary artery disease ED Provider Note NAME: EDITA WEBB AGE: 55 SEX: F ARRIVES VIA: Ambulance INFORMANT: Patient, ED PROVIDER(S): Rick Blanco MD CHIEF COMPLAINT: Chest/epigastric pain. PLAN: Disposition: Admit MEDICAL DECISION MAKING: The patient is a pleasant 55-year-old woman, Beth speaking only, with a past medical history of hypertension, HFpEF, history of left bundle branch block (rate related) who presents to the emergency department accompanied by her daughter for evaluation of chest/epigastric pain after being evaluated at her PCPs office at [facility] referred to emergency department given aspirin and nitroglycerin by EMS with resolution of pain. Patient gives permission/prefers for daughter to interpret. The patient reports having symptoms that began last night after eating her dinner which included a Chapati and okra like meal with epigastric pain and bloating that persisted throughout today and into this afternoon. She denies associated shortness of breath, nausea, vomiting, diarrhea or urinary symptoms. Her last bowel movement was yesterday evening and was normal and did not have to strain. They deny any recent fevers, chills, cough, congestion, urinary symptoms. Patient was admitted to [facility] from 05/21- 05/23 for SOB. Had LHC that demonstrated non-obstructive CAD. On arrival patient is no acute distress, temperature of 37.8 and otherwise stable vital signs. She appears clinically dry. Exam is otherwise unremarkable. EKG on arrival demonstrates left bundle branch block no sgarbossa criteria. She was noted to convert to narrow complex subsequently. She denies any symptoms at this time. WBC 10.8K, nonspecific., Nonspecific. H/H similar to prior range of values. Platelets within normal limits. Chemistry without metabolic acidosis. Electrolytes without significant abnormality. LFTs unremarkable. Troponin negative/undetectable. Lipase is not elevated. COVID-19 PCR was negative. Given the patient's epigastric/chest pain which resolved with nitroglycerin and aspirin prior to arrival reasonable to admit the patient for further management. The patient and her daughter at the bedside agreement this plan. Case was discussed with Dr. Jones, [facility] hospitalist, who will evaluate the patient for admission. Triage Nursing notes reviewed and agree them. Prior medical records reviewed Vital Signs: reviewed and remarkable for hypertension, tachycardia. Differential diagnosis: Cardiac ischemia, aortic dissection, pulmonary embolism, pneumothorax, pneumonia, pericarditis, myocarditis, esophageal rupture, GERD, cholecystitis, pancreatitis, musculoskeletal, as well as other pathologies. ER treatment provided: See below. Diagnostics interpreted by me: ECG 1716: NSR, 96 bpm, no ectopy, LBBB, no sgarbossa criteria. ECG 1808: Sinus rhythm with frequent Premature ventricular complexes, 87 bpm, no overt ST elevation or depression. Cardiac Monitoring: An order for continuous cardiac monitoring was placed and demonstrated Laboratory studies: See below Imaging studies: See below Consultation(s): Case was discussed with Dr. Jones, [facility] hospitalist, who will evaluate the patient for admission. HPI: The patient is a pleasant 55-year-old woman, Beth speaking only, with a past medical history of hypertension, HFpEF, history of left bundle branch block (rate related) who presents to the emergency department accompanied by her daughter for evaluation of chest/epigastric pain after being evaluated at her PCPs office at [facility] referred to emergency department given aspirin and nitroglycerin by EMS with resolution of pain. Patient gives permission/prefers for daughter to interpret. The patient reports having symptoms that began last night after eating her dinner which included a Chapati and okra like meal with epigastric pain and bloating that persisted throughout today and into this afternoon. She denies associated shortness of breath, nausea, vomiting, diarrhea or urinary symptoms. Her last bowel movement was yesterday evening and was normal and did not have to strain. They deny any recent fevers, chills, cou gh, congestion, urinary symptoms. Patient was admitted to [facility] from 05/21-05/23 for SOB. Had LHC that demonstrated non-obstructive CAD. ROS: See above HPI for pertinent positives & negatives. A total of 10 systems reviewed and were otherwise negative. PAST MEDICAL HISTORY:See Below PAST SURGICAL HISTORY:See Below FAMILY HISTORY:See Below SOCIAL HISTORY:See Below HOME MEDICATIONS:See Below ALLERGIES:See Below VITALS:See Below PHYSICAL EXAMINATION: GENERAL: Awake, alert, well-appearing, in no distress HENT: Normocephalic, atraumatic. Oropharynx with dry mucous membranes and otherwise unremarkable. EYES: Normal conjunctiva. Sclera non-icteric. NECK: Supple. No nuchal rigidity. FROM. No JVD. RESPIRATORY: Clear to auscultation. CARDIAC: Regular rate, normal rhythm. Extremities warm and well perfused. Pulses equal. ABDOMEN: Soft, non-distended. No tenderness to palpation. No rebound or guarding. No masses. RECTAL: Deferred. MUSCULOSKELETAL: Chest examination reveals no tenderness. The back is symmetrical on inspection without obvious abnormality. There is no CVA tenderness to palpation. No joint edema. LOWER EXTREMITIES: Calves are equal size bilaterally and non-tender. No edema. No discoloration. NEURO: Normal sensorium. No sensory or motor deficits noted. SKIN: No rash or jaundice noted. Rick lBanco MD Past Med/Surg History Medical History (Updated 07/03/21 @ 04:03 by Rick Blanco MD) Coronary artery disease Hyperlipemia Hypertension Hypertensive emergency LBBB (left bundle branch block) Non-ST elevation (NSTEMI) myocardial infarction Social History Smoking Status: Never smoker Hx Alcohol Use: No Hx Substance Use: No Preferred Language: [facility] Communication Tools: Letter Board, Facial Expression and Physical Gestures Collection Technician Required: Yes Beliefs That Will Affect Care: None marital status: Current Living Situation: Spouse current occupational status: unemployed Feels Safe at Home: Yes Assistive Devices: None Allergies Allergies Allergy/AdvReac Type Severity Reaction Status Date / Time No Known Allergies Allergy Verified 07/02/21 19:22 Home Meds Home Medications Medication Instructions Recorded Confirmed losartan 25 mg tablet 25 mg PO QAM 10/22/20 07/02/21 metformin 500 mg tablet 500 mg PO BIDM 10/22/20 07/02/21 aspirin 81 mg tablet,delayed 81 mg PO QAM 07/02/21 07/02/21 release atorvastatin 80 mg tablet 80 mg PO HS 07/02/21 07/02/21 Previous Rx's Medication Instructions Recorded metoprolol tartrate 25 mg tablet 12.5 mg PO BID #30 tab 05/23/21 pantoprazole 40 mg tablet,delayed 40 mg PO QAM #30 tab 05/23/21 release Results & Data (ED) Vital Signs Vital Signs - 24 hr 07/02/21 17:28 07/02/21 17:38 07/02/21 18:10 Temperature 37.8 C H Temperature Source Oral Pulse Rate 94 H Pulse Rate [Apical] 102 H 83 Pulse Rhythm Regular Pulse Rhythm [Apical] Regular Respiratory Rate 16 16 20 Respiratory Effort / Characteristics Non-Labored Respiratory Depth Normal Blood Pressure 149/78 H Blood Pressure [Left Arm] 149/78 H 142/94 H Blood Pressure Mean 101 Blood Pressure Mean [Left Arm] 101 110 Pulse Oximetry 95 96 96 Oxygen Delivery Method Room Air Room Air Room Air Sepsis Recent Fever Within 48 Hours No Sepsis New/Unexplained Change in Mental Status No Sepsis Action Taken by Nursing No Action Required Laboratory Data Attestation: I reviewed the patient's lab results. Result diagrams: 07/02/21 17:35 07/02/21 17:35 Lab Results 07/02/21 07/02/21 07/02/21 Range/Units 17:35 17:35 17:53 WBC 10.88 H (4.8-10.8) K/uL RBC 4.60 (4.2-5.4) M/uL Hgb 11.7 L (12.0-16.0) g/dL Hct 37.0 (37-47) % MCV 80.4 (80-100) fL MCH 25.4 (25-34) pg MCHC 31.6 L (32-36) g/dL RDW Std Deviation 41.2 (36.4-46.3) fL RDW Coeff of Roma 14.1 (11.5-14.5) % Plt Count 385 (130-400) K/uL MPV 10.2 (7.4-10.4) fL Immature Gran % (Auto) 0.2 % Neut % (Auto) 58.1 % Lymph % (Auto) 34.9 % [place] % (Auto) 5.2 % Eos % (Auto) 1.4 % Baso % (Auto) 0.2 % Neut # (Auto) 6.32 (1.4-6.5) K/uL Lymph # (Auto) 3.80 H (1.2-3.4) K/uL [place] # (Auto) 0.57 (0.11-0.59) K/uL Eos # (Auto) 0.15 (0-0.5) K/uL Baso # (Auto) 0.02 (0-0.2) K/uL Immature Gran # (Auto) 0.02 (0.00-0.02) K/uL Sodium 138 (136-145) mmol/L Potassium 3.6 (3.5-5.1) mmol/L Chloride 106 (98-107) mmol/L Carbon Dioxide 28 (21-32) mmol/L Anion Gap 4.0 (3-11) BUN 11 (7-18) mg/dl Creatinine 0.69 (0.6-1.2) mg/dl Est Cr Clr Drug Dosing 96.5 ml/min Est GFR ( Amer) 112.8 ml/min Est GFR (Non-Af Amer) 97.3 ml/min BUN/Creatinine Ratio 15.6 (10-20) Glucose 140 H (70-99) mg/dl Calcium 9.3 (8.5-10.1) mg/dl Phosphorus 2.8 (2.5-4.9) mg/dl Magnesium 2.0 (1.8-2.4) mg/dl Total Bilirubin 0.4 (0.2-1) mg/dl AST 15 (15-37) U/L ALT 23 (12-78) U/L Alkaline Phosphatase 120 H (45-117) U/L Troponin I < 0.015 (0-0.045) ng/ml Total Protein 7.3 (6.4-8.2) gm/dl Albumin 3.5 (3.4-5.0) gm/dl Globulin 3.8 (2.5-4.0) gm/dl Albumin/Globulin Ratio 0.9 (0.9-2) Lipase 287 (73-393) U/L COVID-19 Eval Order Covid19 at [facility] SARS-CoV-2 (PCR) (Negative) 07/02/21 Range/Units 17:53 WBC (4.8-10.8) K/uL RBC (4.2-5.4) M/uL Hgb (12.0-16.0) g/dL Hct (37-47) % MCV (80-100) fL MCH (25-34) pg MCHC (32-36) g/dL RDW Std Deviation (36.4-46.3) fL RDW Coeff of Roma (11.5-14.5) % Plt Count (130-400) K/uL MPV (7.4-10.4) fL Immature Gran % (Auto) % Neut % (Auto) % Lymph % (Auto) % [place] % (Auto) % Eos % (Auto) % Baso % (Auto) % Neut # (Auto) (1.4-6.5) K/uL Lymph # (Auto) (1.2-3.4) K/uL [place] # (Auto) (0.11-0.59) K/uL Eos # (Auto) (0-0.5) K/uL Baso # (Auto) (0-0.2) K/uL Immature Gran # (Auto) (0.00-0.02) K/uL Sodium (136-145) mmol/L Potassium (3.5-5.1) mmol/L Chloride (98-107) mmol/L Carbon Dioxide (21-32) mmol/L Anion Gap (3-11) BUN (7-18) mg/dl Creatinine (0.6-1.2) mg/dl Est Cr Clr Drug Dosing ml/min Est GFR ( Amer) ml/min Est GFR (Non-Af Amer) ml/min BUN/Creatinine Ratio (10-20) Glucose (70-99) mg/dl Calcium (8.5-10.1) mg/dl Phosphorus (2.5-4.9) mg/dl Magnesium (1.8-2.4) mg/dl Total Bilirubin (0.2-1) mg/dl AST (15-37) U/L ALT (12-78) U/L Alkaline Phosphatase (45-117) U/L Troponin I (0-0.045) ng/ml Total Protein (6.4-8.2) gm/dl Albumin (3.4-5.0) gm/dl Globulin (2.5-4.0) gm/dl Albumin/Globulin Ratio (0.9-2) Lipase (73-393) U/L COVID-19 Eval Order SARS-CoV-2 (PCR) NEGATIVE (Negative) Administered Medications Atorvastatin Calcium (Atorvastatin 40 Mg Tab) 80 mg PO HS CONSTANZA Stop: 08/01/21 21:43 Last Admin: 07/02/21 23:14 Dose: 80 mg Documented by: [id number] Insulin Aspart (Insulin Aspart 100 Units/Ml 3 Ml Pen) 0 units SC ACHS CONSTANZA Stop: 08/01/21 21:43 Last Admin: 07/02/21 23:12 Dose: 1 units Documented by: [id number] Cosigned by: [id number] Metoprolol Tartrate (Metoprolol Tartrate 25 Mg Tab) 12.5 mg PO BID CONSTANZA Stop: 08/01/21 21:43 Last Admin: 07/02/21 23:13 Dose: 12.5 mg Documented by: [id number] Discontinued Medications Sodium Chloride (Nss) 500 mls @ 999 mls/hr IV .Q31M ONE Stop: 07/02/21 18:06 Last Infusion: 07/02/21 19:11 Dose: 0 mls/hr Documented by: [id number] Admin: 07/02/21 17:44 Dose: 999 mls/hr Documented by: [id number] Famotidine 20 mg/ Syringe 5 mls @ 2.5 mls/min IV NOW STA Stop: 07/02/21 20:25 Last Admin: 07/02/21 23:39 Dose: 2.5 mls/min Documented by: [id number] Imaging Data Radiologist's Impression: Chest X-Ray 07/02/21 17:34 XR chest 1V portable HISTORY: Atypical Chest Pain COMPARISON: Chest 05/23/2021. FINDINGS: The heart remains mildly enlarged. No pleural effusions. No pneumothorax. No new focal lung consolidations to suggest pneumonia. No evidence for pulmonary edema. IMPRESSION: Stable mild cardiomegaly. ACT 112: Negative or not required by law. Electronically signed by: Kevin Galarza M.D. 07/02/2021 6:07 PM Discharge Plan Visit Data Chief Complaint: Chest Pain Stated Complaint: CHEST PAIN ED Provider: Rick Blanco Discharge Problem: Chest pain, LBBB (left bundle branch block), Coronary artery disease Patient Disposition: Admitted As Inpatient Discharge Instructions Interventions: ED Discharge Assessment Last Done: 07/02/21 21:34
[2021-07-02 18:05] LABS: Basophils # (auto) 0.02 K/uL (0-0.2); Basophils % (auto) 0.2 %; Eosinophils # (auto) 0.15 K/uL (0-0.5); Eosinophils % (auto) 1.4 %; Hemoglobin 11.7 g/dL (12.0-16.0); Immature Granulocytes # (auto) 0.02 K/uL (0.00-0.02); Immature Granulocytes % (auto) 0.2 %; Lymphocytes % (auto) 34.9 %; Mean Corpuscular Hemoglobin 25.4 pg (25-34); Mean Corpuscular Hgb Conc 31.6 g/dL (32-36); Mean Corpuscular Volume 80.4 fL (80-100); Mean Platelet Volume 10.2 fL (7.4-10.4); Monocytes # (auto) 0.57 K/uL (0.11-0.59); Monocytes % (auto) 5.2 %; Neutrophils # (auto) 6.32 K/uL (1.4-6.5); Neutrophils % (auto) 58.1 %; Platelet Count 385 K/uL (130-400); RDW Coefficient of Variation 14.1 % (11.5-14.5); RDW Standard Deviation 41.2 fL (36.4-46.3); White Blood Count 10.88 K/uL (4.8-10.8)
--- NOTE | 2021-07-02 18:09 | XRay Report ---
XR chest 1V portable HISTORY: Atypical Chest Pain COMPARISON: Chest 05/23/2021. FINDINGS: The heart remains mildly enlarged. No pleural effusions. No pneumothorax. No new focal lung consolidations to suggest pneumonia. No evidence for pulmonary edema. IMPRESSION: Stable mild cardiomegaly. ACT 112: Negative or not required by law. Electronically signed by: Kevin Galarza M.D. 07/02/2021 6:07 PM
[2021-07-02 18:21] LABS: Alanine Aminotransferase 23 U/L (12-78); Albumin Level 3.5 gm/dl (3.4-5.0); Aspartate Aminotransferase 15 U/L (15-37); BUN Creatinine Ratio 15.6 (10-20); Blood Urea Nitrogen 11 mg/dl (7-18); Calcium 9.3 mg/dl (8.5-10.1); Carbon Dioxide 28 mmol/L (21-32); Chloride 106 mmol/L (98-107); Creatinine Clr Calc Pharmacy 96.5 ml/min; Est GFR (African American) 112.8 ml/min; Est GFR (Non-African American) 97.3 ml/min; Glucose 140 mg/dl (70-99); Lipase 287 U/L (73-393); Potassium 3.6 mmol/L (3.5-5.1); Sodium 138 mmol/L (136-145)
[2021-07-02 18:27] LABS: Albumin Globulin Ratio 0.9 (0.9-2); Alkaline Phosphatase 120 U/L (45-117); Bilirubin,Total 0.4 mg/dl (0.2-1); Globulin 3.8 gm/dl (2.5-4.0); Phosphorus 2.8 mg/dl (2.5-4.9); Total Protein 7.3 gm/dl (6.4-8.2); Troponin I < 0.015 ng/ml (0-0.045)
[2021-07-02] MEDS ORDERED: FAMOTIDINE 20 MG in SYRINGE 3 ML IV STA (20:24)
--- NOTE | 2021-07-02 21:11 | History and Physical Report ---
DATE OF ADMISSION: 07/02/2021 CHIEF COMPLAINT: Lower chest pain, epigastric pain. HISTORY OF PRESENT ILLNESS: This is a 55-year-old female with past medical history significant for hypertension, hyperlipidemia, diabetes. Recently, she was in the ER on 05/21/2021 with flash pulmonary edema and shortness of breath, requiring BiPAP in the ER,thought to be from uncontrolled HTN as she stopped BP meds for few days because of rash in her hands( As patient thought meds were causing rash) and she also had an EKG that showed rate-related left bundle- branch block and the echo showed EF of 50%-55%, mild concentric LVH. She received Lasix and she also underwent a cardiac cath, which showed nonobstructive CAD of the LAD, left main, circumflex and RCA and medical management recommended and she was placed on aspirin, high-intensity statin, ARB and beta alvarado,last admission initial hospitalization patient was in hypertensive urgency/emergency and required nitroglycerin drip. The patient followed with her PCP after discharge. The patient is Beth speaking. She does not speak Indonesian. Her [id number] is in the room who is helping with the history. As per [id number], she ran out of her aspirin and Protonix 1 week ago. Aspirin she just restarted again, but Protonix she did not start yet. Last night after dinner, she felt pain below the breast region, 6/10 in severity, heavy feeling, pressure-like feeling and it persisted in the morning too, which prompted her to come to the ER. Currently, after 3 nitroglycerins, the pain got resolved and currently resting comfortably and hemodynamically stable. There is no chest pain, denies any shortness of breath. No cough. She had some mild temperature spike in the ER, but no subjective fevers. No headache, no blurred vision, no earache, no runny nose, no sore throat, no nausea, no abdominal pain, normal bowel and bladder movements. No orthopnea. No swelling in the legs. ALLERGIES: No known drug allergies. PAST MEDICAL HISTORY: As mentioned above. PAST SURGICAL HISTORY: Colonoscopy. FAMILY HISTORY: No family history on file. SOCIAL HISTORY: , lives with family. No smoking, no substance abuse. MEDICATIONS: The patient is on aspirin 81 mg p.o. daily, atorvastatin 80 mg p.o. at bedtime, losartan 25 mg p.o. a.m., metformin 500 mg p.o. b.i.d., metoprolol tartrate 12.5 mg p.o. b.i.d., Protonix 40 mg p.o. a.m. REVIEW OF SYSTEMS: As per HPI. Rest of the review of systems is negative. PHYSICAL EXAMINATION: GENERAL: The patient is obese, not in acute distress. VITAL SIGNS: Temperature 37.8, pulse 83, respiratory rate 20, blood pressure 142/94, oxygen 96% on room air. HEENT: Pupils equal, round and reactive to light. Oral mucosa moist. NECK: No JVD, no neck masses. CARDIOVASCULAR: S1 and S2 heard. Regular rate and rhythm. No murmur, no gallop. RESPIRATORY SYSTEM: Normal AP diameter. No accessory muscle use. No wheezing, no crackles. ABDOMEN: Soft, bowel sounds present, nontender, no distention. CENTRAL NERVOUS SYSTEM: Cranial nerves II-XII grossly intact, nonfocal. EXTREMITIES: No edema, no erythema. LABORATORY DATA: WBC 10.8, hemoglobin 11.7, hematocrit 37, platelets 385. Sodium 138, potassium 3.6, chloride 106, bicarbonate 28, BUN 11, creatinine 0.69, serum glucose 140, calcium 9.3, phosphorus 2.8, magnesium 2, total bilirubin 0.4, AST 15, ALT 23, alkaline phosphatase 120. Troponin I less than 0.015. Lipase 287. SARS-CoV-2 PCR negative. Chest x-ray: Stable cardiomegaly. EKG: Sinus rhythm with frequent PVCs at a rate of 87, possible left atrial enlargement. ASSESSMENT AND PLAN: This is a 55-year-old female, presents with epigastric and chest pain. 1. Chest pain and epigastric pain: She stopped aspirin and Protonix for 1 week, she restarted aspirin, but not the Protonix yet. In the first week of May, cardiac catheterization showed nonobstructive coronary artery disease. Troponin is negative. EKG, no acute findings. We will do serial enzymes. We will keep her n.p.o. after midnight, consult cardiology in the a.m., monitor her in the med-telemetry. 2. History of nonobstructive coronary artery disease: Continue her home aspirin and high-intensity statin and beta alvarado and advised the patient not to miss the medications. 3. Mild temperature spike and mild leukocytosis: No obvious source of infection. Awaiting urinalysis. 4. Diabetes: Hold metformin. Place her on insulin sliding scale, follow blood sugars. 5. History of hypertension: Continue metoprolol tartrate, losartan. We will monitor the blood pressure. 6. Gastroesophageal reflux disease: Continue Protonix. We will give her a dose of IV Pepcid for now. 7. Deep venous thrombosis prophylaxis: Sequential compression devices. DISPOSITION: Closely monitor in the med-tele. PT/OT prior to discharge. Social service to help with discharge planning. Level 1 full code. Job ID: [id number] MTDD
[2021-07-02] MEDS ORDERED: ONDANSETRON INJ 2 MG/ML 2 ML VIAL IV PRN (21:44)
[2021-07-02] MEDS ORDERED: ACETAMINOPHEN 325 MG TAB PO PRN (21:44)
[2021-07-02] MEDS ORDERED: ATORVASTATIN 40 MG TAB PO SCH (21:44)
[2021-07-02] MEDS ORDERED: POLYETHYLENE (MIRALAX) 17 GM PACK PO PRN (21:44)
[2021-07-02] MEDS ORDERED: NITROGLYCERIN SL 0.4 MG/TAB TAB SL PRN (21:44)
[2021-07-02] MEDS ORDERED: GLUCOSE 10 TABS/TUBE PO PRN (22:00)
[2021-07-02] MEDS ORDERED: GLUCOSE 40% GEL 15 GM TUBE PO PRN (22:00)
[2021-07-02] MEDS ORDERED: GLUCAGON FOR INJ 1 MG VIAL IM PRN (22:00)
[2021-07-02] MEDS ORDERED: DEXTROSE 50% 50 ML SYRINGE IV PRN (22:00)
[2021-07-02] MEDS ORDERED: CARBOHYDRATES FOR HYPOGLYCEMIA PO PRN (22:00)
[2021-07-02] MEDS: INSULIN ASPART 100 UNITS/ML 3 ML PEN SC SCH (23:12)
[2021-07-02] MEDS: METOPROLOL TARTRATE 25 MG TAB PO SCH (23:13)
[2021-07-03 06:06] LABS: Basophils # (auto) 0.02 K/uL (0-0.2); Basophils % (auto) 0.2 %; Eosinophils # (auto) 0.18 K/uL (0-0.5); Eosinophils % (auto) 1.9 %; Hematocrit (blood only) 38.4 % (37-47); Hemoglobin 12.2 g/dL (12.0-16.0); Immature Granulocytes # (auto) 0.03 K/uL (0.00-0.02); Immature Granulocytes % (auto) 0.3 %; Lymphocytes # (auto) 3.82 K/uL (1.2-3.4); Lymphocytes % (auto) 40.9 %; Mean Corpuscular Hemoglobin 25.6 pg (25-34); Mean Corpuscular Hgb Conc 31.8 g/dL (32-36); Mean Corpuscular Volume 80.5 fL (80-100); Mean Platelet Volume 10.3 fL (7.4-10.4); Monocytes # (auto) 0.68 K/uL (0.11-0.59); Monocytes % (auto) 7.3 %; Neutrophils % (auto) 49.4 %; Platelet Count 367 K/uL (130-400); RDW Coefficient of Variation 14.2 % (11.5-14.5); RDW Standard Deviation 41.8 fL (36.4-46.3); Red Blood Count 4.77 M/uL (4.2-5.4); White Blood Count 9.33 K/uL (4.8-10.8)
[2021-07-03 06:43] LABS: Blood Urea Nitrogen 11 mg/dl (7-18); Calcium 8.9 mg/dl (8.5-10.1); Carbon Dioxide 27 mmol/L (21-32); Chloride 108 mmol/L (98-107); Creatinine Clr Calc Pharmacy 105.1 ml/min; Est GFR (African American) 116.8 ml/min; Est GFR (Non-African American) 100.8 ml/min; Glucose 110 mg/dl (70-99); Magnesium 2.1 mg/dl (1.8-2.4); Potassium 3.9 mmol/L (3.5-5.1); Sodium 139 mmol/L (136-145)
[2021-07-03 06:48] LABS: Troponin I < 0.015 ng/ml (0-0.045)
[2021-07-03] MEDS: METOPROLOL TARTRATE 25 MG TAB PO SCH (08:36)
[2021-07-03] MEDS: INSULIN ASPART 100 UNITS/ML 3 ML PEN SC SCH ×2 (08:41→11:44)
--- NOTE | 2021-07-03 08:49 | Cardiology Consultation ---
Date of Consultation July 03, 2021 Assessment & Plan (1) Coronary artery disease: (2) Chest pain: No further episodes of chest discomfort since presentation to the hospital. Known nonobstructive CAD per cardiac cath 05/21/2021. History of NSTEMI in the setting of hypertensive emergency in May 2021-medical management was advised. Chest pain symptoms possibly due to GERD in the setting of stopping Protonix and ongoing use with aspirin. Okay to discharge home from a cardiac standpoint. We will continue to follow-up on an outpatient basis 1. Patient to remain on aspirin 81 mg daily 2. Continue Protonix (3) LBBB (left bundle branch block): Known, rate related. (4) GERD (gastroesophageal reflux disease): Chest discomfort/epigastric discomfort likely related to GERD in the setting of holding Protonix x1 week. Urged compliance with PPI . 1. Plan as stated above. (5) Diastolic CHF with preserved left ventricular function, NYHA class 2: Euvolemic on exam. Not currently requiring loop diuretic therapy. (6) Hypertension: Recommend goal blood pressure of under 140/90. Recommend recheck of blood pressure after morning medications. Can consider increase in losartan at that time should blood pressures remain elevated above goal-we will continue to follow on an outpatient basis. Supervising Physician Co-Signing Physician Notes Patient was seen and personally examined, chart reviewed. Assessment as above. No signs or symptoms of myocardial ischemia with atypical chest pain and known mild branch vessel coronary disease by cardiac catheterization May 2021. We will increase metoprolol tartrate to 25 mg twice per day with room to increase losartan as an outpatient as needed for further hypertension control. No indications for further cardiac testing at this time. Would resume Protonix History of Present Illness Reason for Consultation: 55 year old female admitted to [facility] due to chest pain/epigastric discomfort. Patient is non sammarinese speaking- speaks jassi. Per chart review she ran out of her aspirin and Protonix 1 week prior. She recently restarted aspirin but did not restart Protonix. After eating dinner she felt pain below the breast region, heavy feeling, pressure-like feeling and it persisted in the morning too, which prompted her to come to the ER. After 3 nitroglycerin symptoms improved. Was recently admitted in May due to NSTEMI with hypertensive emergency and acute on chronic diastolic heart failure. Patient presented to the emergency department with flash pulmonary edema in the setting of hypertensive emergency. Left bundle branch block was found on EKG, unknown chronicity. An EKG was obtained demonstrating an LVEF of 50% with abnormal septal wall motion consistent with conduction abnormality. Patient was diuresed with Lasix and hypoxia improved. Troponins were elevated, thought to be in the setting of a heart failure, hypoxia, and hypertensive crisis. Patient was placed on IV heparin. Patient underwent cardiac catheterization on 05/22 showing branch vessel coronary artery disease involving the 1st and 2nd diagonal- medical management was recommended with the possible addition of long-acting nitrates. Upon entrance into the room patient was resting comfortably asleep in bed. Review of symptoms was limited due to language barrier. Patient declined language line or the use of paper interpretation aids at the bedside. Patient was able to say that she has had no further chest discomfort and her breathing was "okay". Her main concern was a headache that she was given Tylenol for- notes improvement in symptoms. However, it appears that this headache has been ongoing for quite some time. deck supervisor reviewed overnight showing sinus rhythm in the 70s to 80. Lab work reviewed, findings are unremarkable including a negative troponin x2 EKG showed normal sinus rhythm with a nonspecific T wave abnormality, 75 bpm. Past medical history: 1. Chronic heart failure with preserved ejection fraction, NYHA class 2 2. HTN with h/o Hypertensive emergency 05/2021 3. NSTEMI 05/21/2021, s/p cath at [facility] revealing nonobstructive coronary artery disease of the LAD, left main, circumflex, and RCA. There is branch vessel stenosis involving the 1st and 2nd diagonal- medical management was recommended 4. Left bundle branch block, possibly intermittent and rate related, dx 05/2021 5. Dyslipidemia, LDL goal below 70 Requesting Physician: Reji hospitalist Attending Physician: Debbie Monzon DO Allergies Allergy/AdvReac Type Severity Reaction Status Date / Time No Known Allergies Allergy Verified 07/02/21 19:22 Home Medications Medication Instructions Recorded Confirmed Type losartan 25 mg tablet 25 mg PO QAM 10/22/20 07/02/21 History metformin 500 mg tablet 500 mg PO BIDM 10/22/20 07/02/21 History metoprolol tartrate 25 mg tablet 12.5 mg PO BID #30 tab 05/23/21 07/02/21 Rx pantoprazole 40 mg tablet,delayed 40 mg PO QAM #30 tab 05/23/21 07/02/21 Rx release aspirin 81 mg tablet,delayed 81 mg PO QAM 07/02/21 07/02/21 History release atorvastatin 80 mg tablet 80 mg PO HS 07/02/21 07/02/21 History Patient History Medical History Coronary artery disease Hyperlipemia Hypertension Hypertensive emergency LBBB (left bundle branch block) Non-ST elevation (NSTEMI) myocardial infarction Social History Smoking Status: Never smoker Hx Alcohol Use: No Hx Substance Use: No Preferred Language: Obed Communication Tools: Letter Board, Facial Expression and Physical Gestures Flight [employer]dnance[employer] Required: Yes Beliefs That Will Affect Care: None marital status: Current Living Situation: Spouse current occupational status: unemployed Feels Safe at Home: Yes Assistive Devices: None Review of Systems Review of Systems: Other Limited review of systems was completed due to language barrier and denying the use of language line versus paper interpretation devices at bedside. Constitutional: +Headache Cardiovascular: no chest pain, no dyspnea, no orthopnea and no edema Physical Exam Physical Exam: General: No acute distress. A+Ox3. HEENT: Normocephalic. Atraumatic. Conjunctiva and sclera clear. NECK: No carotid bruits. No JVD. Carotid upstrokes are brisk. Heart: RRR. S1 and S2 noted without murmur, rubs, gallops. PMI non displaced. Lungs: Clear to auscultation. No wheezes, rhonchi, rales. Abdomen: Normal bowel sounds. Soft. Nontender. No masses or organomegaly. No abdominal bruits. Extremities: No edema. No clubbing or cyanosis. Pulses: radial=2/4, posterior tibial=2/4, dorsalis pedis = 2/4. NEURO: No focal deficits. PSYCH: Normal. Results & Data ([facility]) Vital Signs (Past 12 Hours) Vital Signs Temp Pulse Resp BP Pulse Ox Pulse Ox 07/03/21 04:53 36.7 C 84 16 152/84 H 96 07/02/21 23:06 84 148/73 H 07/02/21 21:44 37.2 C 76 14 165/90 H 98 97 Laboratory Results 07/03/21 07/03/21 07/03/21 Range/Units 07:30 05:17 05:17 WBC 9.33 (4.8-10.8) K/uL RBC 4.77 (4.2-5.4) M/uL Hgb 12.2 (12.0-16.0) g/dL Hct 38.4 (37-47) % MCV 80.5 (80-100) fL MCH 25.6 (25-34) pg MCHC 31.8 L (32-36) g/dL RDW Std Deviation 41.8 (36.4-46.3) fL RDW Coeff of [place] 14.2 (11.5-14.5) % Plt Count 367 (130-400) K/uL MPV 10.3 (7.4-10.4) fL Immature Gran % (Auto) 0.3 % Neut % (Auto) 49.4 % Lymph % (Auto) 40.9 % [place] % (Auto) 7.3 % Eos % (Auto) 1.9 % Baso % (Auto) 0.2 % Neut # (Auto) 4.60 (1.4-6.5) K/uL Lymph # (Auto) 3.82 H (1.2-3.4) K/uL [place] # (Auto) 0.68 H (0.11-0.59) K/uL Eos # (Auto) 0.18 (0-0.5) K/uL Baso # (Auto) 0.02 (0-0.2) K/uL Immature Gran # (Auto) 0.03 H (0.00-0.02) K/uL Sodium 139 (136-145) mmol/L Potassium 3.9 (3.5-5.1) mmol/L Chloride 108 H (98-107) mmol/L Carbon Dioxide 27 (21-32) mmol/L Anion Gap 4.0 (3-11) BUN 11 (7-18) mg/dl Creatinine 0.62 (0.6-1.2) mg/dl Est Cr Clr Drug Dosing 105.1 ml/min Est GFR ( Amer) 116.8 ml/min Est GFR (Non-Af Amer) 100.8 ml/min BUN/Creatinine Ratio 17.0 (10-20) Glucose 110 H (70-99) mg/dl POC Glucose 115 H (70-99) mg/dl Calcium 8.9 (8.5-10.1) mg/dl Phosphorus (2.5-4.9) mg/dl Magnesium 2.1 (1.8-2.4) mg/dl Total Bilirubin (0.2-1) mg/dl AST (15-37) U/L ALT (12-78) U/L Alkaline Phosphatase (45-117) U/L Troponin I < 0.015 (0-0.045) ng/ml Total Protein (6.4-8.2) gm/dl Albumin (3.4-5.0) gm/dl Globulin (2.5-4.0) gm/dl Albumin/Globulin Ratio (0.9-2) Lipase (73-393) U/L COVID-19 Eval Order SARS-CoV-2 (PCR) (Negative) 07/03/21 07/02/21 07/02/21 Range/Units 05:17 23:08 17:53 WBC (4.8-10.8) K/uL RBC (4.2-5.4) M/uL Hgb (12.0-16.0) g/dL Hct (37-47) % MCV (80-100) fL MCH (25-34) pg MCHC (32-36) g/dL RDW Std Deviation (36.4-46.3) fL RDW Coeff of Roma (11.5-14.5) % Plt Count (130-400) K/uL MPV (7.4-10.4) fL Immature Gran % (Auto) % Neut % (Auto) % Lymph % (Auto) % [place] % (Auto) % Eos % (Auto) % Baso % (Auto) % Neut # (Auto) (1.4-6.5) K/uL Lymph # (Auto) (1.2-3.4) K/uL [place] # (Auto) (0.11-0.59) K/uL Eos # (Auto) (0-0.5) K/uL Baso # (Auto) (0-0.2) K/uL Immature Gran # (Auto) (0.00-0.02) K/uL Sodium (136-145) mmol/L Potassium (3.5-5.1) mmol/L Chloride (98-107) mmol/L Carbon Dioxide (21-32) mmol/L Anion Gap (3-11) BUN (7-18) mg/dl Creatinine (0.6-1.2) mg/dl Est Cr Clr Drug Dosing ml/min Est GFR ( Amer) ml/min Est GFR (Non-Af Amer) ml/min BUN/Creatinine Ratio (10-20) Glucose (70-99) mg/dl POC Glucose 148 H (70-99) mg/dl Calcium (8.5-10.1) mg/dl Phosphorus (2.5-4.9) mg/dl Magnesium (1.8-2.4) mg/dl Total Bilirubin (0.2-1) mg/dl AST (15-37) U/L ALT (12-78) U/L Alkaline Phosphatase (45-117) U/L Troponin I Cancelled (0-0.045) ng/ml Total Protein (6.4-8.2) gm/dl Albumin (3.4-5.0) gm/dl Globulin (2.5-4.0) gm/dl Albumin/Globulin Ratio (0.9-2) Lipase (73-393) U/L COVID-19 Eval Order SARS-CoV-2 (PCR) NEGATIVE (Negative) 07/02/21 07/02/21 07/02/21 Range/Units 17:53 17:35 17:35 WBC 10.88 H (4.8-10.8) K/uL RBC 4.60 (4.2-5.4) M/uL Hgb 11.7 L (12.0-16.0) g/dL Hct 37.0 (37-47) % MCV 80.4 (80-100) fL MCH 25.4 (25-34) pg MCHC 31.6 L (32-36) g/dL RDW Std Deviation 41.2 (36.4-46.3) fL RDW Coeff of Roma 14.1 (11.5-14.5) % Plt Count 385 (130-400) K/uL MPV 10.2 (7.4-10.4) fL Immature Gran % (Auto) 0.2 % Neut % (Auto) 58.1 % Lymph % (Auto) 34.9 % [place] % (Auto) 5.2 % Eos % (Auto) 1.4 % Baso % (Auto) 0.2 % Neut # (Auto) 6.32 (1.4-6.5) K/uL Lymph # (Auto) 3.80 H (1.2-3.4) K/uL [place] # (Auto) 0.57 (0.11-0.59) K/uL Eos # (Auto) 0.15 (0-0.5) K/uL Baso # (Auto) 0.02 (0-0.2) K/uL Immature Gran # (Auto) 0.02 (0.00-0.02) K/uL Sodium 138 (136-145) mmol/L Potassium 3.6 (3.5-5.1) mmol/L Chloride 106 (98-107) mmol/L Carbon Dioxide 28 (21-32) mmol/L Anion Gap 4.0 (3-11) BUN 11 (7-18) mg/dl Creatinine 0.69 (0.6-1.2) mg/dl Est Cr Clr Drug Dosing 96.5 ml/min Est GFR ( Amer) 112.8 ml/min Est GFR (Non-Af Amer) 97.3 ml/min BUN/Creatinine Ratio 15.6 (10-20) Glucose 140 H (70-99) mg/dl POC Glucose (70-99) mg/dl Calcium 9.3 (8.5-10.1) mg/dl Phosphorus 2.8 (2.5-4.9) mg/dl Magnesium 2.0 (1.8-2.4) mg/dl Total Bilirubin 0.4 (0.2-1) mg/dl AST 15 (15-37) U/L ALT 23 (12-78) U/L Alkaline Phosphatase 120 H (45-117) U/L Troponin I < 0.015 (0-0.045) ng/ml Total Protein 7.3 (6.4-8.2) gm/dl Albumin 3.5 (3.4-5.0) gm/dl Globulin 3.8 (2.5-4.0) gm/dl Albumin/Globulin Ratio 0.9 (0.9-2) Lipase 287 (73-393) U/L COVID-19 Eval Order Covid19 at [facility] SARS-CoV-2 (PCR) (Negative) Diagnostic Findings Echocardiogram 05/21/2021 LVEF 50 to 55% with mild concentric LVH Septal motion consistent with conduction abnormality Mild MR Pulse-wave TDI of the anterior and posterior mitral annulus demonstrates abnormal LV relaxation (1) Coronary artery disease Associated angina: unspecified whether angina present Coronary Disease- Associated Artery/Lesion type: unspecified vessel or lesion type [place] vs. transplanted heart: unspecified whether [place] or transplanted heart Qualified Code(s): I25.10 - Atherosclerotic heart disease of [place] coronary artery without angina pectoris (2) Chest pain Chest pain type: unspecified Qualified Code(s): R07.9 - Chest pain, unspecified
[2021-07-03] MEDS ORDERED: ASPIRIN 81 MG ECTAB PO SCH (09:00)
[2021-07-03] MEDS ORDERED: PANTOprazole 40 MG TAB PO SCH (09:00)
[2021-07-03] MEDS ORDERED: LOSARTAN POTASSIUM 25 MG TAB PO SCH (09:00)
--- NOTE | 2021-07-03 15:30 | Electrocardiogram Report ---
Test Reason : Blood Pressure : / mmHG Vent. Rate : 087 BPM Atrial Rate : 087 BPM P-R Int : 166 ms QRS Dur : 086 ms QT Int : 382 ms P-R-T Axes : 069 035 073 degrees QTc Int : 459 ms Sinus rhythm with frequent Premature ventricular complexes Possible Left atrial enlargement Borderline ECG When compared with ECG of 02-JUL-2021 17:16, (unconfirmed) Premature ventricular complexes are now Present Left bundle branch block is no longer Present Confirmed by Joseph Luna ([id number]) on 07/03/2021 3:30:27 PM Referred By: REFERRED SELF Confirmed By:Joseph Luna
--- NOTE | 2021-07-03 15:30 | Electrocardiogram Report ---
Test Reason : Blood Pressure : / mmHG Vent. Rate : 096 BPM Atrial Rate : 096 BPM P-R Int : 166 ms QRS Dur : 142 ms QT Int : 398 ms P-R-T Axes : 061 000 098 degrees QTc Int : 502 ms Normal sinus rhythm Left bundle branch block Abnormal ECG When compared with ECG of 23-MAY-2021 08:30, Left bundle branch block is now Present Confirmed by Joseph Luna ([id number]) on 07/03/2021 3:29:55 PM Referred By: REFERRED SELF Confirmed By:Joseph Luna
--- NOTE | 2021-07-03 15:53 | Electrocardiogram Report ---
Test Reason : Blood Pressure : / mmHG Vent. Rate : 075 BPM Atrial Rate : 075 BPM P-R Int : 176 ms QRS Dur : 100 ms QT Int : 408 ms P-R-T Axes : 060 044 090 degrees QTc Int : 455 ms Normal sinus rhythm Nonspecific T wave abnormality Abnormal ECG When compared with ECG of 02-JUL-2021 18:08, (unconfirmed) Premature ventricular complexes are no longer Present Nonspecific T wave abnormality now evident in Anterolateral leads Confirmed by Joseph Luna ([id number]) on 07/03/2021 3:53:14 PM Referred By: REFERRED SELF Confirmed By:Joseph Luna
--- NOTE | 2021-07-03 15:58 | Discharge Summary ---
Date of Service July 03, 2021 Admission HPI Per Admitting Provider This is a 55-year-old female with past medical history significant for hypertension, hyperlipidemia, diabetes. Recently, she was in the ER on 05/21/2021 with flash pulmonary edema and shortness of breath, requiring BiPAP in the ER, thought to be from uncontrolled HTN as she stopped BP meds for few days because of rash in her hands( As patient thought meds were causing rash) and she also had an EKG that showed rate-related left bundle-branch block and the echo showed EF of 50%-55%, mild concentric LVH. She received Lasix and she also underwent a cardiac cath, which showed nonobstructive CAD of the LAD, left main, circumflex and RCA and medical management recommended and she was placed on aspirin, high-intensity statin, ARB and beta alvarado,last admission initial hospitalization patient was in hypertensive urgency/emergency and required nitroglycerin drip. The patient followed with her PCP after discharge. The patient is Beth speaking. She does not speak Salvadorean. Her [id number] is in the room who is helping with the history. As per [id number]-ib-[id number], she ran out of her aspirin and Protonix 1 week ago. Aspirin she just restarted again, but Protonix she did not start yet. Last night after dinner, she felt pain below the breast region, 6/10 in severity, heavy feeling, pressure-like feeling and it persisted in the morning too, which prompted her to come to the ER. Currently, after 3 nitroglycerins, the pain got resolved and currently resting comfortably and hemodynamically stable. There is no chest pain, denies any shortness of breath. No cough. She had some mild temperature spike in the ER, but no subjective fevers. No headache, no blurred vision, no earache, no runny nose, no sore throat, no nausea, no abdominal pain, normal bowel and bladder movements. No orthopnea. No swelling in the legs Admission Exam Per Admitting Provider GENERAL: The patient is obese, not in acute distress. VITAL SIGNS: Temperature 37.8, pulse 83, respiratory rate 20, blood pressure 142/94, oxygen 96% on room air. HEENT: Pupils equal, round and reactive to light. Oral mucosa moist. NECK: No JVD, no neck masses. CARDIOVASCULAR: S1 and S2 heard. Regular rate and rhythm. No murmur, no gallop. RESPIRATORY SYSTEM: Normal AP diameter. No accessory muscle use. No wheezing, no crackles. ABDOMEN: Soft, bowel sounds present, nontender, no distention. CENTRAL NERVOUS SYSTEM: Cranial nerves II-XII grossly intact, nonfocal. EXTREMITIES: No edema, no erythema. Principal Diagnosis atypical chest pain Discharge Exam Gen: WD/WN, NAD, sitting in bedside chair, A&Ox3, patient Beth speaking, daughter on phone to assist with interpreting HEENT: Normocephalic, atraumatic, conjunctivae moist, sclerae anicteric, mucous membranes moist Lung: Clear to Auscultation bilaterally, no wheezes/rales/rhonchi Heart: Regular rate, regular rhythm, no murmurs, rubs, or gallops Abdomen: Soft, NT, ND +BS x 4 Extremities: no edema Skin: Warm, no rash Discharge Data Allergies Allergy/AdvReac Type Severity Reaction Status Date / Time No Known Allergies Allergy Verified 07/02/21 19:22 Consultations 07/02/21 19:05 ED Decision to Admit Stat 07/03/21 08:00 Consult Cardiology Routine Hospital Course (1) Atypical chest pain: (2) Coronary artery disease: (3) GERD (gastroesophageal reflux disease): (4) Hypertension: (5) LBBB (left bundle branch block): (6) Diastolic CHF with preserved left ventricular function, NYHA class 2: (7) Diabetes: This is a 55-year-old female is Beth speaking with past medical history significant for hypertension, hyperlipidemia, diabetes, history of recent NSTEMI and other medical problems listed below who presents with chest pain that resolved at home with ntg x 2. Has not had any further episodes of chest pain since presentation to the hospital. Known nonobstructive CAD per cardiac cath 05/21/2021 with presentation of NSTEMI in the setting of hypertensive emergency in May 2021 and medical management was advised. Chest pain symptoms possibly due to GERD in the setting of stopping Protonix 1 week ago and ongoing use with aspirin. No acute changes during admission - troponin negative, no acute EKG changes. No indications for further cardiac testing at this time. Recommend resuming Protonix, which was refilled. Due to elevated blood pressure, will increase metoprolol tartrate to 25 mg twice per day and losartan to 50mg daily. Discussed plan with patient and daughter at time of discharge. Patient asymptomatic and hemodynamically stable at time of discharge. Total Time Total Time Spent Total Time Spent (In Minutes): 45 Discharge Plan Discharge Items Patient Disposition: Home - Self-Care Reason For Visit: CHEST PAIN Discharge Diagnosis: chest pain Activity: Resume your previous activity Non-emergency contact: Primary Care Provider Call non-emergency contact if: you have any medication questions, your symptoms worsen and your pain is not controlled Follow-up/Referrals: Maritza Lyles MD [Primary Care Provider] - (Date & Time 07/08/2021 11:00 AM Provider Tosha Biggs MD Department General Internal Medicine [facility] ) Diet: Carb Consistent or DM2 and Heart Healthy Addtl Attending Provider Instructions: Dear Taj, You were admitted overnight for chest pressure that has since resolved. You have known coronary artery disease but no acute changes with EKG or labs this admission. You were seen by cardiology who feel your chest pain is likely related to GERD in the setting of running out of protonix medication for one week. Please resume Protonix and take every day as prescribed (your prescription was refilled) Your blood pressure is elevated and we are making 2 dose adjustments to medications you have already been prescribed (see below). Please continue all other home medications as prescribed. MEDICATION CHANGES: Your metoprolol tartrate was increased to 25mg twice daily. Your losartan was increased to 50mg daily. RECOMMENDATIONS FOR FOLLOW-UP: Please follow up with Dr. Biggs on 07/08/2021 at 11:00 AM. OTHER INSTRUCTIONS: Seek medical attention if you have: * temperature above 101 * chest pain or trouble breathing * abdominal pain, nausea, vomiting * diarrhea, dark stools or bloody stools * any unanswered questions or concerns Call 911 if symptoms are severe. Please take good care of yourself. Call if you have any questions or problems. You can reach a [facility] hospitalist on duty at [facility] 24 hours a day by calling [phone]. [facility]OBERTO [facility] Hospital[facility] Pending Studies at Discharge: No Stand-Alone Forms: My [facility] [employer], Smoking Cessation Medications and DC Order Prescriptions: Continued metformin 500 mg tablet 500 mg PO BIDM RF: 0 atorvastatin 80 mg Tablet 80 mg PO HS RF: 0 aspirin 81 mg tablet,delayed release (DR/EC) 81 mg PO QAM RF: 0 pantoprazole 40 mg Tablet,Delayed Release (Dr/Ec) 40 mg PO QAM Qty: 30 RF: 1 Changed losartan 25 mg tablet 50 mg PO QAM Qty: 60 RF: 0 metoprolol tartrate 25 mg Tablet 25 mg PO BID Qty: 60 RF: 0 Discharge Orders: Discharge Order (Routine); Ordered 07/03/21 Ordered By: Noreen Leong Admission Data Admit Date/Time: 07/02/21 20:09 Attending Provider: Debbie Monzon Admit Provider: Mikey Jones Primary Care Provider: Maritza Lyles Other Providers: Mikey Jones ; Jermain Underwood ; Devon Quinn ; Tanner Chao ; Mayito Thorne ; Ar Layne ; Slade Velázquez ; Livia Crabtree ; Cori Mohan ; Maya Mac ; Blake Griffith Other Interventions: Discharge Summary Assessment (RN) Last Done: 07/03/21 16:10 Supervising Physician Co-Signing Physician Notes I have seen and examined the patient and have discussed the case with the provider above. I agree with the assessment and plan as stated. DO Nicolás
[2021-07-03] MEDS ORDERED: METOPROLOL TARTRATE 25 MG TAB PO SCH (21:00)
== END 2021-07-03 17:47 | disposition home or self-care (01) ==
LOC: 2S 17:07 → ED 17:07 → SUATTDRO 20:09 → 2S 21:34

== ENCOUNTER 2022-09-13 20:14 | Inpatient (IN) ==
[2022-09-13 21:09] LABS: Appearance Urine Clear (Clear); Bacteria Urine Automated Negative (Negative); Bilirubin Urine Negative (Negative); Blood Urine Negative (Negative); Cast Urine Automated 0 /lpf (0-5); Color Urine Yellow; Glucose Urine UA Negative (Negative); Ketones Urine Negative (Negative); Leukocyte Esterase Urine 1+ (Negative); Nitrite Urine Negative (Negative); Protein Urine Negative (Negative); RBC Urine Automated 0-4 /hpf (0-4); Specific Gravity Urine 1.005 (1.000-1.030); Urobilinogen Urine Negative (Negative)
[2022-09-13] MEDS ORDERED: ALBUT/IPRATROP 3MG/0.5MG NEB 3 ML VIAL NEB STA (21:13)
[2022-09-13] MEDS ORDERED: NITROGLYCERIN 2% OINTMENT 30GM TUBE EXT STA (21:33)
[2022-09-13] MEDS ORDERED: ALBUT/IPRATROP 3MG/0.5MG NEB 3 ML VIAL NEB ONE (21:33)
[2022-09-13] MEDS ORDERED: FUROSEMIDE 40 MG/4 ML VIAL IV STA (21:33)
[2022-09-13] MEDS ORDERED: FUROSEMIDE INJ 20 MG/2 ML VIAL IV ONE ×2 (21:35→23:06)
[2022-09-13] MEDS ORDERED: NITROGLYCERIN 2% OINTMENT 30GM TUBE EXT ONE (21:35)
[2022-09-13] MEDS ORDERED: FUROSEMIDE 40 MG/4 ML VIAL IV ONE (21:35)
--- NOTE | 2022-09-13 21:39 | Emergency Department Note ---
Impression & Plan Acute respiratory distress, Hypertension, Pulmonary edema, Hypoxia, Tachycardia, Hyponatremia, Hypomagnesemia ED Provider Note NAME: EDITA WEBB AGE: 56 SEX: F : 1965 ARRIVES VIA: Walk-In INFORMANT: [Patient][family] ED PROVIDER(S): [Reji Gil MD] CHIEF COMPLAINT: Hypertension, short of breath HISTORY OF PRESENT ILLNESS: The patient is a 56-year-old female who did not feel well yesterday. She just was not herself. Denied chest pain, denied dyspnea. There has been no cough or fever. The patient today still felt poorly. Her blood pressure was high, she presents for evaluation. The patient was waiting in the waiting room as the ER was full and there was a very high census. I was alerted by the nursing staff that the patient had suddenly become short of breath and was wheezing. A DuoNeb was ordered and I went to see the patient. On exam, the patient was in respiratory distress. She was not short of breath until just a very short time ago--this came on suddenly. Of note, the patient had a similar presentation a few years ago, the family b elieves it may have been fluid buildup/CHF. As per the family, the patient does drink a lot of water daily. She does not appear to be on a diuretic. REVIEW OF SYSTEMS: See HPI for pertinent positives and negatives. A total of ten systems were reviewed and were otherwise negative. PMHx/PSHx: See Below SOCIAL HISTORY: See Below. PHYSICAL EXAM: GENERAL: Patient is in significant respiratory distress. HEENT: No acute trauma, normocephalic atraumatic, mucous membranes moist, no n kranthi congestion, no scleral icterus. NECK: No stridor, no adenopathy, no meningismus, trachea is midline. LUNGS: Significant respiratory distress, crackles and wheezing bilaterally. Patient speaks in extremely short sentences HEART: No obvious murmurs however, the overriding lung sounds make cardiac auscultation extremely difficult. No tachycardia, regular rhythm ABDOMEN: Soft, nontender, bowel sounds positive, no peritonitis. EXTREMITIES: No cyanosis or edema, full range of motion of all the joints without pain or difficulty, no signs for acute trauma. NEUROLOGIC: Oriented x 3, no acute motor or sensory deficits, no focal weakness. SKIN: No rash, no jaundice, mild diaphoresis. DIFFERENTIAL DIAGNOSIS: Reactive airway disease, pneumonia, RSV, COVID-19, influenza, pneumothorax, COPD, CHF, infection, cardiac ischemia, anemia, pulmonary embolism, bronchitis, as well as other pathologies. EMERGENCY DEPARTMENT COURSE/PROCEDURES: ECG: Indication was shortness of breath. ECG shows a normal sinus rhythm with a left bundle branch block. The rate is 92. There is no ST elevation, no PVCs. The QTC is 469. Repeat ECG: Indication was shortness of breath. The ECG shows a sinus tachycardia with a left bundle branch block. The rate is 124. There is no obvious ST elevation. Baseline artifact is noted. QTC is 474. Compared to the ECG from earlier, the rate has increased. Continuous Cardiac Monitoring: An order was placed for continuous cardiac monitoring. The monitor shows a rate of 96 with normal sinus rhythm. Critical Care Note: I have personally spent 41 minutes of critical care time in the direct management of this patient. This includes bedside care, interpretation of diagnostic studies, and testing, discussion with consultants, patient, and family members, and other required patient management activities. This 41 minutes is in excess of all separately billable procedures. MEDICAL DECISION MAKING: There is a mild leukocytosis, this could be consistent with infection or the stress of her presentation. A very mild anemia was noted. Platelet count slightly elevated. No coagulopathy. Sodium was low at 126. Magnesium was low at 1.6. No renal failure. ECG initially showed a left bundle branch block and a sinus rhythm, no obvious ischemia. A repeat ECG showed a sinus tachycardia with a left bundle branch block, no acute ischemia. Cardiac enzyme testing x1 was slightly elevated. This elevation could be consistent with mismatch or cardiac injury. BNP was not significantly elevated. Chest film shows significant pulmonary edema. No pneumothorax. Urinalysis did not show infection. COVID, influenza and RSV test returned negative. I was called emergently to see the patient as she had decompensated while waiting for her ED bed assignment. She appeared in significant respiratory dis tress. Her exam was consistent with flash pulmonary edema. Patient was placed on 3 inches of nitroglycerin paste, she was ordered for 60 mg of IV Lasix. She was placed on BiPAP with a continuous DuoNeb. A Momin catheter was ordered to monitor her urine output. Patient started to make improvement with the above treatment. She looked more comfortable. Her blood pressure improved. Her O2 saturations improved. I spoke with the patient and her family, I spoke with case management, I did speak with the ICU as well as with the on-call hospitalist. As the patient was being readied for hospital admission, she began complaining of some back pain and nausea and increasing shortness of breath. Her blood pressure dropped. I was called emergently to the room. The nitroglycerin paste was discontinued. She was ordered for 4 mg of IV Zofran and a 250 cc saline bolus. She was maintained on the BiPAP. The nurses placed a Momin catheter emergently. With the above treatment, the patient's blood pressure has improved, she is less short of breath. Her nausea and back pain are controlled. She seems much more comfortable. Patient is in serious condition. She is being admitted to the ICU. Further care, monitoring and work-up is required. Past Med/Surg History Medical History Coronary artery disease Hyperlipemia Hypertension Hypertensive emergency LBBB (left bundle branch block) Non-ST elevation (NSTEMI) myocardial infarction Social History Smoking Status: Never smoker Hx Alcohol Use: No Hx Substance Use: No Preferred Language: Beth Communication Ability: Effective Communication Tools: Letter Board, Facial Expression and Physical Gestures Remedy Developer Required: Yes Beliefs That Will Affect Care: None marital status: Current Living Situation: Spouse current occupational status: unemployed Feels Safe at Home: Yes Assistive Devices: None Allergies Allergies Allergy/AdvReac Type Severity Reaction Status Date / Time No Known Allergies Allergy Verified 09/13/22 22:22 Home Meds Home Medications Medication Instructions Recorded Confirmed metformin 500 mg tablet 1,000 mg PO BIDM 10/22/20 09/13/22 aspirin 81 mg tablet,delayed 81 mg PO QAM 07/02/21 09/13/22 release atorvastatin 80 mg tablet 80 mg PO HS 07/02/21 09/13/22 losartan 50 mg tablet 50 mg PO QAM 09/13/22 09/13/22 omeprazole 40 mg capsule,delayed 40 mg PO AMHS 09/13/22 09/13/22 release Previous Rx's Medication Instructions Recorded metoprolol tartrate 25 mg tablet 25 mg PO BID #60 tabs 07/03/21 Results & Data (ED) Vital Signs Vital Signs - 24 hr 09/13/22 20:28 09/13/22 21:54 09/13/22 21:45 Temperature 36.7 C Temperature Source Oral Pulse Rate 92 H Pulse Rate [Right] 130 H Respiratory Rate 18 28 H Respiratory Effort / Characteristics Spontaneous Short of Breath Respiratory Depth Normal Respiratory Pattern Blood Pressure 197/113 H Blood Pressure Mean 141 Pulse Oximetry 97 95 92 Oxygen Delivery Method Room Air Non-rebreather BiPAP Oxygen Flow Rate 15 Fraction of Inspired Oxygen 100 Sepsis Recent Fever Within 48 Hours No Sepsis New/Unexplained Change in Mental Status N/A Sepsis Action Taken by Nursing No Action Required 09/13/22 21:45 Temperature Temperature Source Pulse Rate 130 H Pulse Rate [Right] Respiratory Rate 28 H Respiratory Effort / Characteristics Non-Labored Spontaneous Respiratory Depth Shallow Respiratory Pattern Tachypnea Blood Pressure Blood Pressure Mean Pulse Oximetry 92 Oxygen Delivery Method Oxygen Flow Rate Fraction of Inspired Oxygen 100 Sepsis Recent Fever Within 48 Hours Sepsis New/Unexplained Change in Mental Status Sepsis Action Taken by Assisted Medications Current Medication List: was personally reviewed by me Laboratory Data Attestation: I reviewed the patient's lab results. Result diagrams: 09/13/22 21:15 09/13/22 21:15 Lab Results 09/13/22 09/13/22 09/13/22 Range/Units 20:50 21:15 21:15 WBC 13.86 H (4.8-10.8) K/ul RBC 4.71 (3.93-5.22) M/uL Hgb 11.6 L (12.0-16.0) g/dl Hct 36.3 (34.1-44.9) % MCV 77.1 L (80.0-100.0) fL MCH 24.6 L (25.0-34.0) pg MCHC 32.0 (32.0-36.0) g/dL RDW Std Deviation 39.7 (36.4-46.3) fL RDW Coeff of [place] 14.3 (11.5-14.5) % Plt Count 459 H (130-400) K/uL MPV 10.4 (9.4-12.3) fL Immature Gran % (Auto) 0.8 % Neut % (Auto) 59.9 % Lymph % (Auto) 30.3 % [place] % (Auto) 7.4 % Eos % (Auto) 1.0 % Baso % (Auto) 0.6 % Neut # (Auto) 8.31 H (1.4-6.5) K/uL Lymph # (Auto) 4.20 H (1.2-3.4) K/uL [place] # (Auto) 1.02 H (0.24-0.82) K/uL Eos # (Auto) 0.14 (0-0.50) K/uL Baso # (Auto) 0.08 (0-0.2) K/uL Immature Gran # (Auto) 0.11 H (0.00-0.02) K/uL PT 10.2 (9.0-12.0) Seconds INR 1.0 (0.9-1.1) APTT 28.4 (21.0-31.0) Seconds PTT Ratio 1.0 Sodium (136-145) mmol/L Potassium (3.5-5.1) mmol/L Chloride (98-107) mmol/L Carbon Dioxide (21-32) mmol/L Anion Gap (3-11) BUN (6-23) mg/dl Creatinine (0.6-1.2) mg/dl Est Cr Clr Drug Dosing ml/min Est GFR ( Amer) ml/min Est GFR (Non-Af Amer) ml/min BUN/Creatinine Ratio (10-20) Glucose (70-99(Fasting)) mg/dl Calcium (8.5-10.1) mg/dl Magnesium (1.7-2.4) mg/dl Total Bilirubin (0.2-1.0) mg/dl AST (13-39) U/L ALT (7-52) U/L Alkaline Phosphatase (34-104) U/L Troponin I High Sens (0-14) pg/ml B-Natriuretic Peptide (0-100) pg/ml Total Protein (6.0-8.3) gm/dl Albumin (3.4-5.0) gm/dl Globulin (2.5-4.0) gm/dl Albumin/Globulin Ratio (0.9-2) Urine Color Yellow Urine Appearance Clear (Clear) Urine pH 7.0 (4.5-7.5) Ur Specific [place] 1.005 (1.000-1.030) Urine Protein Negative (Negative) Urine Glucose (UA) Negative (Negative) Urine Ketones Negative (Negative) Urine Blood Negative (Negative) Urine Nitrite Negative (Negative) Urine Bilirubin Negative (Negative) Urine Urobilinogen Negative (Negative) Ur Leukocyte Esterase 1+ H (Negative) Urine WBC (Auto) 1-5 (0-5) /hpf Urine RBC (Auto) 0-4 (0-4) /hpf U Hyaline Cast (Auto) 0 (0-5) /lpf U Epithel Cells (Auto) 5-10 H (0-5) /lpf Urine Bacteria (Auto) Negative (Negative) SARS-CoV-2 (PCR) (Negative) Influenza Type A (PCR) (Neg) Influenza Type B (PCR) (Neg) RSV (RT-PCR) (Neg) 09/13/22 09/13/22 09/13/22 Range/Units 21:15 21:15 21:15 WBC (4.8-10.8) K/ul RBC (3.93-5.22) M/uL Hgb (12.0-16.0) g/dl Hct (34.1-44.9) % MCV (80.0-100.0) fL MCH (25.0-34.0) pg MCHC (32.0-36.0) g/dL RDW Std Deviation (36.4-46.3) fL RDW Coeff of Roma (11.5-14.5) % Plt Count (130-400) K/uL MPV (9.4-12.3) fL Immature Gran % (Auto) % Neut % (Auto) % Lymph % (Auto) % [place] % (Auto) % Eos % (Auto) % Baso % (Auto) % Neut # (Auto) (1.4-6.5) K/uL Lymph # (Auto) (1.2-3.4) K/uL [place] # (Auto) (0.24-0.82) K/uL Eos # (Auto) (0-0.50) K/uL Baso # (Auto) (0-0.2) K/uL Immature Gran # (Auto) (0.00-0.02) K/uL PT (9.0-12.0) Seconds INR (0.9-1.1) APTT (21.0-31.0) Seconds PTT Ratio Sodium 126 L (136-145) mmol/L Potassium 4.4 (3.5-5.1) mmol/L Chloride 92 L (98-107) mmol/L Carbon Dioxide 25 (21-32) mmol/L Anion Gap 9 (3-11) BUN 13 (6-23) mg/dl Creatinine 0.50 L (0.6-1.2) mg/dl Est Cr Clr Drug Dosing 125.7 ml/min Est GFR ( Amer) 124.5 ml/min Est GFR (Non-Af Amer) 107.4 ml/min BUN/Creatinine Ratio 26.0 H (10-20) Glucose 121 H (70-99(Fasting)) mg/dl Calcium 9.0 (8.5-10.1) mg/dl Magnesium 1.6 L Cancelled (1.7-2.4) mg/dl Total Bilirubin 0.3 (0.2-1.0) mg/dl AST 17 (13-39) U/L ALT 17 (7-52) U/L Alkaline Phosphatase 115 H (34-104) U/L Troponin I High Sens 17.2 H (0-14) pg/ml B-Natriuretic Peptide 68 (0-100) pg/ml Total Protein 7.2 (6.0-8.3) gm/dl Albumin 4.2 (3.4-5.0) gm/dl Globulin 3.0 (2.5-4.0) gm/dl Albumin/Globulin Ratio 1.4 (0.9-2) Urine Color Urine Appearance (Clear) Urine pH (4.5-7.5) Ur Specific [place] (1.000-1.030) Urine Protein (Negative) Urine Glucose (UA) (Negative) Urine Ketones (Negative) Urine Blood (Negative) Urine Nitrite (Negative) Urine Bilirubin (Negative) Urine Urobilinogen (Negative) Ur Leukocyte Esterase (Negative) Urine WBC (Auto) (0-5) /hpf Urine RBC (Auto) (0-4) /hpf U Hyaline Cast (Auto) (0-5) /lpf U Epithel Cells (Auto) (0-5) /lpf Urine Bacteria (Auto) (Negative) SARS-CoV-2 (PCR) (Negative) Influenza Type A (PCR) (Neg) Influenza Type B (PCR) (Neg) RSV (RT-PCR) (Neg) 09/13/22 Range/Units 21:56 WBC (4.8-10.8) K/ul RBC (3.93-5.22) M/uL Hgb (12.0-16.0) g/dl Hct (34.1-44.9) % MCV (80.0-100.0) fL MCH (25.0-34.0) pg MCHC (32.0-36.0) g/dL RDW Std Deviation (36.4-46.3) fL RDW Coeff of Roma (11.5-14.5) % Plt Count (130-400) K/uL MPV (9.4-12.3) fL Immature Gran % (Auto) % Neut % (Auto) % Lymph % (Auto) % [place] % (Auto) % Eos % (Auto) % Baso % (Auto) % Neut # (Auto) (1.4-6.5) K/uL Lymph # (Auto) (1.2-3.4) K/uL [place] # (Auto) (0.24-0.82) K/uL Eos # (Auto) (0-0.50) K/uL Baso # (Auto) (0-0.2) K/uL Immature Gran # (Auto) (0.00-0.02) K/uL PT (9.0-12.0) Seconds INR (0.9-1.1) APTT (21.0-31.0) Seconds PTT Ratio Sodium (136-145) mmol/L Potassium (3.5-5.1) mmol/L Chloride (98-107) mmol/L Carbon Dioxide (21-32) mmol/L Anion Gap (3-11) BUN (6-23) mg/dl Creatinine (0.6-1.2) mg/dl Est Cr Clr Drug Dosing ml/min Est GFR ( Amer) ml/min Est GFR (Non-Af Amer) ml/min BUN/Creatinine Ratio (10-20) Glucose (70-99(Fasting)) mg/dl Calcium (8.5-10.1) mg/dl Magnesium (1.7-2.4) mg/dl Total Bilirubin (0.2-1.0) mg/dl AST (13-39) U/L ALT (7-52) U/L Alkaline Phosphatase (34-104) U/L Troponin I High Sens (0-14) pg/ml B-Natriuretic Peptide (0-100) pg/ml Total Protein (6.0-8.3) gm/dl Albumin (3.4-5.0) gm/dl Globulin (2.5-4.0) gm/dl Albumin/Globulin Ratio (0.9-2) Urine Color Urine Appearance (Clear) Urine pH (4.5-7.5) Ur Specific [place] (1.000-1.030) Urine Protein (Negative) Urine Glucose (UA) (Negative) Urine Ketones (Negative) Urine Blood (Negative) Urine Nitrite (Negative) Urine Bilirubin (Negative) Urine Urobilinogen (Negative) Ur Leukocyte Esterase (Negative) Urine WBC (Auto) (0-5) /hpf Urine RBC (Auto) (0-4) /hpf U Hyaline Cast (Auto) (0-5) /lpf U Epithel Cells (Auto) (0-5) /lpf Urine Bacteria (Auto) (Negative) SARS-CoV-2 (PCR) NEGATIVE (Negative) Influenza Type A (PCR) Negative (Neg) Influenza Type B (PCR) Negative (Neg) RSV (RT-PCR) Negative (Neg) Administered Medications Discontinued Medications Albuterol (Albut/Ipratrop 3mg/0.5mg Neb 3 Ml Vial) 3 ml NEB NOW STA; Protocol Stop: 09/13/22 21:14 Last Admin: 09/13/22 21:29 Dose: 3 ml Documented By: DARREN Albuterol (Albut/Ipratrop 3mg/0.5mg Neb 3 Ml Vial) 12 ml NEB ONE ONE; Protocol Stop: 09/13/22 21:34 Last Admin: 09/13/22 22:34 Dose: 12 ml Documented By: NICKY Furosemide (Furosemide 40 Mg/4 Ml Vial) Confirm Administered Dose 40 mg IV .STK- MED ONE Stop: 09/13/22 21:36 Last Admin: 09/13/22 21:50 Dose: Not Given Documented By: SW Furosemide (Furosemide 40 Mg/4 Ml Vial) 60 mg IV NOW STA Stop: 09/13/22 21:34 Last Admin: 09/13/22 21:50 Dose: 60 mg Documented By: SW Furosemide (Furosemide Inj 20 Mg/2 Ml Vial) Confirm Administered Dose 20 mg IV .STK-MED ONE Stop: 09/13/22 21:36 Last Admin: 09/13/22 21:51 Dose: Not Given Documented By: DARREN Furosemide (Furosemide Inj 20 Mg/2 Ml Vial) 20 mg IV ONE ONE Stop: 09/13/22 23:07 Last Admin: 09/13/22 23:17 Dose: 20 mg Documented By: NICKY Magnesium Sulfate/Dextrose (Magnesium Sulfate / D5w) 1 gm in 100 mls @ 100 mls/hr IV NOW STA Stop: 09/13/22 23:21 Last Admin: 09/13/22 22:34 Dose: 100 mls/hr Documented By: NICKY Sodium Chloride (Nss 1000ml) 250 mls @ 999 mls/hr IV .Q16M ONE Stop: 09/13/22 23:41 Last Infusion: 09/13/22 23:56 Dose: 0 mls/hr Documented By: Infusion: 09/13/22 23:56 Dose: 0 mls/hr Documented By: Admin: 09/13/22 23:36 Dose: 999 mls/hr Documented By: NICKY Morphine Sulfate (Morphine Sulfate 2 Mg/Ml Carp) 2 mg IV NOW STA Stop: 09/13/22 23:06 Last Admin: 09/13/22 23:14 Dose: 2 mg Documented By: NICKY Nitroglycerin (Nitroglycerin 2% Ointment 30gm Tube) Confirm Administered Dose 18 inch EXT .STK-MED ONE Stop: 09/13/22 21:36 Last Admin: 09/13/22 21:51 Dose: Not Given Documented By: DARREN Nitroglycerin (Nitroglycerin 2% Ointment 30gm Tube) 3 inch EXT NOW STA Stop: 09/13/22 21:34 Last Admin: 09/13/22 21:50 Dose: 3 inch Documented By: DARREN Ondansetron HCl (Ondansetron Inj 2 Mg/Ml 2 Ml Vial) Confirm Administered Dose 4 mg .ROUTE .STK-MED ONE Stop: 09/13/22 23:25 Last Admin: 09/13/22 23:36 Dose: Not Given Documented By: NICKY Ondansetron HCl (Ondansetron Inj 2 Mg/Ml 2 Ml Vial) 4 mg IV NOW STA Stop: 09/13/22 23:27 Last Admin: 09/13/22 23:36 Dose: 4 mg Documented By: KT Imaging Data My Impression: Chest x-ray: There is significant bilateral pulmonary edema. No pneumothorax. Discharge Plan Visit Data Chief Complaint: Hypertension Stated Complaint: HYPERTENSION ED Provider: Reji Gil Discharge Problem: Acute respiratory distress, Hypertension, Pulmonary edema, Hypoxia, Tachycardia, Hyponatremia, Hypomagnesemia Patient Disposition: Admitted As Inpatient Condition: Serious Forms Stand Alone Forms: My [facility] Prescriptions Prescriptions: No Action metformin 500 mg tablet 1,000 mg PO BIDM atorvastatin 80 mg Tablet 80 mg PO HS aspirin 81 mg tablet,delayed release (DR/EC) 81 mg PO QAM metoprolol tartrate 25 mg Tablet 25 mg PO BID Qty: 60 0RF omeprazole 40 mg capsule,delayed release(DR/EC) 40 mg PO AMHS losartan 50 mg tablet 50 mg PO QAM Referrals Referrals: Maritza Lyles MD [Primary Care Provider] -
[2022-09-13 21:49] LABS: Basophils # (auto) 0.08 K/uL (0-0.2); Basophils % (auto) 0.6 %; Eosinophils # (auto) 0.14 K/uL (0-0.50); Hematocrit (blood only) 36.3 % (34.1-44.9); Hemoglobin 11.6 g/dl (12.0-16.0); Immature Granulocytes # (auto) 0.11 K/uL (0.00-0.02); Immature Granulocytes % (auto) 0.8 %; Lymphocytes % (auto) 30.3 %; Mean Corpuscular Hemoglobin 24.6 pg (25.0-34.0); Mean Corpuscular Volume 77.1 fL (80.0-100.0); Mean Platelet Volume 10.4 fL (9.4-12.3); Monocytes # (auto) 1.02 K/uL (0.24-0.82); Monocytes % (auto) 7.4 %; Neutrophils # (auto) 8.31 K/uL (1.4-6.5); Neutrophils % (auto) 59.9 %; Platelet Count 459 K/uL (130-400); RDW Coefficient of Variation 14.3 % (11.5-14.5); RDW Standard Deviation 39.7 fL (36.4-46.3); Red Blood Count 4.71 M/uL (3.93-5.22); White Blood Count 13.86 K/ul (4.8-10.8)
[2022-09-13 21:55] LABS: Partial Thromboplastin Time 28.4 Seconds (21.0-31.0); Prothrombin Time 10.2 Seconds (9.0-12.0)
[2022-09-13 22:13] LABS: Troponin I High Sensitivity 17.2 pg/ml (0-14)
[2022-09-13 22:14] LABS: Albumin Globulin Ratio 1.4 (0.9-2); Albumin Level 4.2 gm/dl (3.4-5.0); Bilirubin,Total 0.3 mg/dl (0.2-1.0); Creatinine Clr Calc Pharmacy 125.7 ml/min; Est GFR (African American) 124.5 ml/min; Est GFR (Non-African American) 107.4 ml/min; Magnesium 1.6 mg/dl (1.7-2.4); Potassium 4.4 mmol/L (3.5-5.1); Total Protein 7.2 gm/dl (6.0-8.3)
[2022-09-13] MEDS ORDERED: MAGNESIUM SULFATE / D5W 1 GM/100 ML BAG IV STA (22:22)
[2022-09-13 22:40] LABS: Influenza A virus by PCR Negative (Neg); Influenza B virus by PCR Negative (Neg); RSV by PCR Negative (Neg); SARS CoV2 RNA(COVID-19) Ceph NEGATIVE (Negative)
[2022-09-13] MEDS ORDERED: MoRPHine SULFATE 2 MG/ML CARP IV STA (23:05)
[2022-09-13] MEDS ORDERED: METOPROLOL TARTRATE 1 MG/ML VIAL IV STA (23:14)
[2022-09-13] MEDS ORDERED: ONDANSETRON INJ 2 MG/ML 2 ML VIAL ONE (23:24)
[2022-09-13] MEDS ORDERED: SODIUM CHLORIDE 0.9% 1000ML 250 ML IV ONE (23:26)
[2022-09-13] MEDS ORDERED: ONDANSETRON INJ 2 MG/ML 2 ML VIAL IV STA (23:26)
[2022-09-14] MEDS ORDERED: GLUCAGON FOR INJ 1 MG VIAL SQ PRN (01:07)
[2022-09-14] MEDS ORDERED: NITROGLYCERIN SL 0.4 MG/TAB TAB SL PRN (01:07)
[2022-09-14] MEDS ORDERED: DEXTROSE 50% 50 ML SYRINGE IV PRN (01:07)
[2022-09-14] MEDS ORDERED: GLUCOSE 10 TAB/TUBE PO PRN (01:07)
[2022-09-14] MEDS ORDERED: POLYETHYLENE (MIRALAX) 17 GM PACK PO PRN (01:07)
[2022-09-14] MEDS ORDERED: CARBOHYDRATES FOR HYPOGLYCEMIA PO PRN (01:07)
[2022-09-14] MEDS ORDERED: GLUCOSE 40% GEL 15 GM TUBE PO PRN (01:07)
[2022-09-14] MEDS ORDERED: PROMETHAZINE 12.5 MG/50.5 ML BAG IV STA (04:11)
--- NOTE | 2022-09-14 04:28 | History and Physical Report ---
DATE OF ADMISSION: 09/13/2022. CHIEF COMPLAINT: Hypertensive urgency, emergency, and shortness of breath. HISTORY OF PRESENT ILLNESS: This is a 56-year-old female with past medical history significant for hypertension, hyperlipidemia, and diabetes. She was in the ER last year in May 2021 with flash pulmonary edema and shortness of breath requiring BiPAP, thought to be from uncontrolled hypertension as she stopped blood pressure medication for a few days because of the rash in her hands. EKG also showed left bundle-branch block. Echo showed EF of 50% to 55% with mild concentric LVH. She underwent cardiac catheterization, which showed nonobstructive CAD of the LAD, left main and circumflex and RCA, and medical management recommended. She is on aspirin, high-dose statin, metoprolol, losartan and as per the [id number] who is in the room, at this time she is taking her medication, she is not missing them, and today she was feeling dizzy and not feeling well, and the blood pressure was running high in 190s, so they brought her to the hospital. In the waiting room, she suddenly became short of breath, hypoxic, and they placed her on BiPAP and a dose of nebs and a dose of IV Lasix 60 mg were given and 2-inch nitroglycerin paste was placed. When I was seeing the patient, the patient was on BiPAP, she was tachycardic to 130s, systolic blood pressure still in 140s. She was complaining of a lot of back pain. Somewhat restless as the shortness of breath is again coming back. Denies any chest pain, no headache, no cough, no recent fever or chills. No runny nose, no sore throat. No nausea, no vomiting, no abdominal pain. Normal bowel and bladder movements. Otherwise, she is ambulating okay. No swelling in the legs. As per [id number], she is noncompliant with the salt intake .A dose of morphine was ordered for pain. Then the patient suddenly became more short of breath and also systolic blood pressure dropped into 70s. ER physician gave 250 mL bolus of fluid and also nitroglycerin paste was taken off and blood pressure improved. Momin was placed. Right now, she is resting comfortably, says breathing is better and heart rates are improved. Blood pressure is holding. ALLERGIES: No known drug allergies. PAST MEDICAL HISTORY: As mentioned above. PAST SURGICAL HISTORY: Colonoscopy, EGDs, cardiac catheterization. MEDICATIONS: The patient is on aspirin 81 mg p.o. daily, atorvastatin 80 mg p.o. at bedtime, losartan 50 mg p.o. daily, metformin 1000 mg p.o. b.i.d., metoprolol tartrate 25 mg p.o. b.i.d., omeprazole 40 mg p.o. b.i.d. FAMILY HISTORY: Significant for no family history on file. SOCIAL HISTORY: , lives with her family. No smoking, no substance abuse. REVIEW OF SYSTEMS: As per HPI. Rest of the review of systems is negative. PHYSICAL EXAMINATION: GENERAL: The patient is of moderate build. Currently on BiPAP. VITAL SIGNS: Temperature 36, pulse 100, respiratory rate 20, blood pressure was like 85/60, oxygen 100% BiPAP. HEENT: Pupils equal, round and reactive to light. Oral mucosa moist. NECK: No JVD, no neck masses. CARDIOVASCULAR: S1 and S2 heard, tachycardia. No murmurs. RESPIRATORY SYSTEM: Normal AP diameter. No accessory muscle use. Bilateral crackles heard. No wheezing. ABDOMEN: Soft, bowel sounds present, nontender, no distention. CENTRAL NERVOUS SYSTEM: Alert and oriented, nonfocal. EXTREMITIES: Trace pedal edema, no erythema. LABORATORY DATA: WBC 13.8, hemoglobin 11.6, hematocrit 36.3, platelets 459. PT 10.2, INR 1, APTT 28.4. Sodium 126, potassium 4.4, chloride 92, CO2 of 25, BUN 13, creatinine 0.5, serum glucose 121, calcium 9, magnesium 1.6, total bilirubin 0.3, AST 17, alkaline phosphatase 115. Troponin I high sensitivity 17.2. BNP 68. Urinalysis, +1 leukocyte esterase. SARS-CoV-2 PCR negative. Influenza A and B PCR negative. RSV PCR negative. IMAGING DATA: Chest x-ray: Flash pulmonary edema. EKG: Normal sinus rhythm, left bundle-branch block, rate of 92, no significant change was found. ASSESSMENT AND PLAN: This 56-year-old female presents with not feeling well, dizziness, high blood pressure at home, and in the ER, became acutely short of breath and found to have flash pulmonary edema. 1. Flash pulmonary edema: Acute respiratory distress. Most likely secondary to uncontrolled hypertension. Received IV Lasix, nitroglycerin paste, then her blood pressure dropped SBP 70-80'sand nitroglycerin paste was taken off and 250cc fluid bolus is given.Current SBP in 110's. At home, she is on losartan and metoprolol.Will hold losartan. To give metoprolol with holding parameters The patient states she is taking the medication regularly. Will get an echo, serial cardiac enzymes. Continue BiPAP. Closely monitor. IF further declines will transfer to the ICU .Consulted cardiology for further recommendations. 2. Hypomagnesemia: Replaced in the ER. 3. Possible urinary tract infection: Will place on Rocephin. 4. Mild elevation of troponin: Mostly demand ischemia. Follow serial cardiac enzymes. 5. Hyponatremia: NA 126. Could be from the congestive heart failure. Got Lasix. Will follow the repeat labs. If it is not improving, would consult nephrology. 6. History of nonobstructive coronary artery disease: On aspirin, statin, and beta alvarado. 7. Gastroesophageal reflux disease: On omeprazole. 8. Diabetes: Hold metformin. Place on insulin sliding scale. Follow the blood sugars. 9. History of generalized anxiety disorder: Currently not on any medication. 10. Deep venous thrombosis prophylaxis: Placed on sequential compression devices in case she needs a procedure. Addendum: Patient wanted off of bipap. CXR shows improvement . OFF of bipap doing fine on nasal canula. Morning labs Showed sodium of 121 and troponin jumped to 900's. .Also wbc 19k. Sleeping comfortably. As per daughter in law in room patient is doing ok.. Started on empiric abx zosyn and doxy. ordered cultures. CT chest to get better picture for any underlying pneumonia. Ordered one dose 100ml 3% hypertonic saline. Nephrology consulted. bMP q6hrs. Started on low dose iv heparin.Follow serial ce and echo and repeat ekg. DISPOSITION: Closely monitor in the tele floor. Level 1 full code. Expect to discharge home and follow up with family doctor. Job ID: [id number]
[2022-09-14 05:05] LABS: Basophils # (auto) 0.04 K/uL (0-0.2); Basophils % (auto) 0.2 %; Hemoglobin 11.7 g/dl (12.0-16.0); Immature Granulocytes # (auto) 0.24 K/uL (0.00-0.02); Immature Granulocytes % (auto) 1.2 %; Lymphocytes # (auto) 1.76 K/uL (1.2-3.4); Lymphocytes % (auto) 9.1 %; Mean Corpuscular Hemoglobin 24.4 pg (25.0-34.0); Mean Corpuscular Hgb Conc 31.6 g/dL (32.0-36.0); Mean Corpuscular Volume 77.2 fL (80.0-100.0); Mean Platelet Volume 9.7 fL (9.4-12.3); Monocytes # (auto) 0.79 K/uL (0.24-0.82); Monocytes % (auto) 4.1 %; Neutrophils # (auto) 16.41 K/uL (1.4-6.5); Neutrophils % (auto) 85.4 %; Platelet Count 440 K/uL (130-400); RDW Standard Deviation 39.3 fL (36.4-46.3); Red Blood Count 4.79 M/uL (3.93-5.22); White Blood Count 19.24 K/ul (4.8-10.8)
[2022-09-14 05:22] LABS: BUN Creatinine Ratio 22.2 (10-20); Calcium 8.4 mg/dl (8.5-10.1); Creatinine Clr Calc Pharmacy 87.3 ml/min; Est GFR (African American) 107.7 ml/min; Magnesium 1.7 mg/dl (1.7-2.4); Potassium 4.2 mmol/L (3.5-5.1)
[2022-09-14] MEDS ORDERED: PIPERACILLIN/TAZOBACTAM 3.375 GM in DEXTROSE 5% 100 ML IV ONE (05:30)
[2022-09-14] MEDS ORDERED: SODIUM CHLORIDE 3 % 100 ML IV ONE (05:33)
[2022-09-14] MEDS ORDERED: STAT IV STA (05:33)
[2022-09-14 05:36] LABS: Troponin I High Sensitivity 920.9 pg/ml (0-14)
[2022-09-14] MEDS ORDERED: Heparin IV Adult Wt-Based Low-Dose *NO* Bolus Protocol IV SCH (05:37)
[2022-09-14] MEDS ORDERED: DOXYCYCLINE HYCLATE 100 MG in DEXTROSE 5% 100 ML IV SCH (06:00)
[2022-09-14] MEDS ORDERED: MAGNESIUM SULFATE / D5W 1 GM/100 ML BAG IV ONE (06:00)
[2022-09-14] MEDS: HEPARIN SODIUM/DEXTROSE 25,000 UNITS/500 ML BAG IV SCH (06:43)
--- NOTE | 2022-09-14 06:51 | XRay Report ---
XR chest 1V portable HISTORY: 56 years-old Female Chest pain, nonspecific acute chest pain COMPARISON: Chest CT 09/14/2022 TECHNIQUE: Portable AP view of the chest FINDINGS: Cardiac silhouette is enlarged. Layering pleural effusions. No pneumothorax. Mixed interstitial and a lveolar opacities are most pronounced within a mid to lower lung zone predominant distribution. Bones appear grossly intact. IMPRESSION: 1. Cardiomegaly with mixed interstitial and alveolar opacities within a mid to lower lung zone predom inant distribution. Findings may represent pulmonary edema versus pneumonia. 2. Layering pleural effusions. ACT 112: Negative or not required by law. The above report was generated using voice recognition software. It may contain grammatical, syntax o r spelling errors. Electronically signed by: Jose Banks M.D. 09/14/2022 6:50 AM
--- NOTE | 2022-09-14 07:05 | XRay Report ---
XR chest 1V portable HISTORY: 56 years-old Female pul edema acute shortness breath with pulmonary edema COMPARISON: Chest CT of same day, chest CT 09/13/2022 TECHNIQUE: AP view of the chest FINDINGS: Cardiac silhouette is enlarged. Pulmonary vascular congestion with mixed interstitial and alveolar op acities, mildly improved from the study obtained last evening. Trace pleural effusions. Bones appear grossly intact. IMPRESSION: 1. Cardiomegaly with mild improvement of the pulmonary edema. 2. Trace pleural effusions. ACT 112: Negative or not required by law. The above report was generated using voice recognition software. It may contain grammatical, syntax o r spelling errors. Electronically signed by: Jsoe Banks M.D. 09/14/2022 7:03 AM
[2022-09-14 07:12] LABS: Iron 33 mcg/dl (35-150); Total Iron Binding Cap Calc 394 mcg/dl (250-450); Transferrin (FE) Percent Satur 8 % (15-50); Unsaturated Iron Binding Cap 361 mcg/dl (155-355)
[2022-09-14] MEDS: INSULIN ASPART PER UNIT SC SCH ×4 (07:52→20:56)
[2022-09-14 08:09] LABS: Estimated Average Glucose 151 mg/dl; Hemoglobin A1C 6.9 % (4.5-5.6)
[2022-09-14] MEDS ORDERED: ENOXAPARIN INJ 40 MG/0.4 ML SYR SQ SCH (09:00)
[2022-09-14] MEDS ORDERED: LOSARTAN POTASSIUM 50 MG TAB PO SCH (09:00)
--- NOTE | 2022-09-14 09:10 | CT Scan Report ---
CT chest diagnostic wo con CT DOSE: 300.40 mGy.cm CLINICAL HISTORY: 56 years-old Female with pul edema vs infiltrates. Acute shortness of breath TECHNIQUE: Multiaxial CT images of the chest were performed without contrast. A dose lowering techni que was utilized adhering to the principles of ALARA. COMPARISON: Chest radiograph of same day and also 09/13/2022, CTA chest 07/29/2021 FINDINGS: No thyroid nodule. There are a few nonspecific borderline enlarged mediastinal, hilar and a xillary chain lymph nodes measuring up to 10 mm. Moderate cardiomegaly without pericardial effusion. No thoracic aortic aneurysm identified. Small right greater than left layering pleural effusions. No pneumothorax. Intralobular septal thicke [place] with multifocal multisegmental bilateral patchy groundglass and consolidative opacities within a mid to lower lung zone predominant distribution. The central airways are patent. The liver appears enlarged. There is no acute process of the imaged upper abdomen. Unremarkable soft tissues. No acute fracture identified. Mild degenerative changes of the spine. IMPRESSION: 1. Cardiomegaly with intralobular septal thickening, intermixed groundglass and consolidative opaciti es. Findings are suggestive of interstitial and alveolar pulmonary edema. Multifocal pneumonia howeve r could appear similarly. 2. Small layering pleural effusions. 3. Mild lymphadenopathy of the chest is similar to prior. ACT 112: Negative or not required by law. Electronically signed by: Jose Banks M.D. 09/14/2022 9:08 AM
[2022-09-14] MEDS: METOPROLOL TARTRATE 25 MG TAB PO SCH ×2 (09:18→20:03)
[2022-09-14] MEDS: PANTOprazole 40 MG TAB PO SCH ×2 (09:18→20:03)
[2022-09-14] MEDS: ASPIRIN 81 MG ECTAB PO SCH (09:19)
[2022-09-14] MEDS ORDERED: FUROSEMIDE 40 MG/4 ML VIAL IV ONE (10:05)
[2022-09-14] MEDS: FUROSEMIDE INJ 20 MG/2 ML VIAL IV SCH ×2 (10:07→18:09)
[2022-09-14] MEDS: CYANOCOBALAMIN (B-12) 500 MCG TABLET PO SCH (11:12)
[2022-09-14 11:26] LABS: BUN Creatinine Ratio 23.2 (10-20); Calcium 8.6 mg/dl (8.5-10.1); Creatinine Clr Calc Pharmacy 112.2 ml/min; Est GFR (Non-African American) 103.5 ml/min; Potassium 4.1 mmol/L (3.5-5.1); Troponin I High Sensitivity 1484.6 pg/ml (0-14)
[2022-09-14] MEDS ORDERED: PIPERACILLIN/TAZOBACTAM 3.375 GM in DEXTROSE 5% 100 ML IV SCH (12:00)
[2022-09-14 13:21] LABS: Partial Thromboplastin Time 26.3 Seconds (21.0-31.0)
--- NOTE | 2022-09-14 13:21 | Nephrology Consultation ---
Date of Consultation September 14, 2022 Assessment & Plan (1) Hyponatremia: hypervolemic hyponatremia, w/ labile but currently acceptable values -lasix as BP toleratets > agree w/ current 20 mg IV bid -f/u cardiology recs -f/u repeat BMP 1800 >> dropped to 124 again; would not give further lasix and would recheck in AM; so ordered -maintain eukalemia >goal sNa for tomorrow AM is no more than 133; but clinical priorties on cardiac issues and hemodynamics f/u pending cultures > her history and presentation do not align History of Present Illness Reason for Consultation: hyponatremia Requesting Physician: Dr Jones Attending Physician: Pj Mcintyre MD History of Present Illness 56 y/o F whom I'm asked to see for hyponatremia was admitted overnight for hypertensive urgency, NSTEMI, pulmonary edema w/ presenting sodium 126 at 2100 yesterday with drop to 121 at 0430 today; improved to 127 by 10 AM today. PMH includes HTN, HL, DM. Evaluated here for HTN emergency in May 2021 w/ cardiac cath at that time showing nonobstructive CAD for medical mgt. She was dyspneic/hypoxic on presentation > received nebs, 60 mg IV lasix, NTG paste; started bipap. SBP was 190s on presentation but dropped as low as 70s overnight as teams worked to stabilize pt. SBP currently in 90s and she is on 4L NC. Interventions affecting sodium: 2200 60 mg IV lasix midnight - 250 ml NS + 20 mg IV lasix (hypotension and dypsnea) 0700 100 mL 3% saline 1000 20 mg IV lasix Pt thought to be in HF and has been started on standing lasix 20 mg IV bid Her blood pressure started out in 190s systolic but by this am has dropped to 90s w/ few medications apart from home meds; she is on 4L 02NC. Cardiology consult is following. 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 that her PCP advised her to drink lots of water and so she has been drinking 7-8 x 14 oz bottles daily. states she was not dyspneic until getting up in waiting room tgo walk back for eval. does not believe her ankles were swollen prior to arrival here but not sure. does endorse anxiety, fletcher earlier in ER. no new/owwrisome voiding sx. no chest pain. states she's had hyponatremia in past in setting of back pain exacerbation. Allergies Allergy/AdvReac Type Severity Reaction Status Date / Time No Known Allergies Allergy Verified 09/13/22 22:22 Home Medications Medication Instructions Recorded Confirmed Type metformin 500 mg tablet 1,000 mg PO BIDM 10/22/20 09/13/22 History aspirin 81 mg tablet,delayed 81 mg PO QAM 07/02/21 09/13/22 History release atorvastatin 80 mg tablet 80 mg PO HS 07/02/21 09/13/22 History metoprolol tartrate 25 mg tablet 25 mg PO BID #60 tabs 07/03/21 09/13/22 Rx losartan 50 mg tablet 50 mg PO QAM 09/13/22 09/13/22 History omeprazole 40 mg capsule,delayed 40 mg PO AMHS 09/13/22 09/13/22 History release Patient History Medical History Coronary artery disease Hyperlipemia Hypertension Hypertensive emergency LBBB (left bundle branch block) Non-ST elevation (NSTEMI) myocardial infarction Social History Smoking Status: Never smoker Hx Alcohol Use: No Hx Substance Use: No Preferred Language: Beth Communication Ability: Effective Communication Tools: Letter Board, Facial Expression and Physical Gestures Traveling Freight Agent Required: Yes Beliefs That Will Affect Care: Mandaen Mandaen Beliefs: Mormonism marital status: Current Living Situation: Spouse and Family Current Living Situation Comment: daughter, SCHUYLER, , grandchildren current occupational status: unemployed Feels Safe at Home: Yes Safety Concerns: Feels Safe At This Time Assistive Devices: None Review of Systems Review of Systems: All systems reviewed & are unremarkable except as noted in HPI & below Physical Exam Constitutional: well developed, well nourished, + obese and cooperative; no acute distress Eyes: EOM intact bilaterally ENMT: Ears: no external ear abnormality Nose: no external nose abnormality Mouth: + dry oral mucous membranes Neck: no nuchal rigidity Respiratory: normal respiratory effort (lying flat comfortably on 4LNC) and able to speak in complete sentences; no labored breathing and no cough A uscultation: + crackles (coarse) and + bronchovesicular breath sounds; no diminished lung sounds Cardiovascular: Rate/Rhythm: regular rhythm and + tachycardic (in 90s) Extremities: no edema Gastrointestinal (Abdomen): Inspection/Auscultation: normal bowel sounds Percussion/Palpation: abdomen soft; abdomen nontender Musculoskeletal: Extremities: strength 5/5 throughout Skin: no rashes, warm and dry Neurologic: loza, fluent speech, no tremor Psychiatric: Orientation: oriented x 3 Speech: normal rate/rhythm/volume of speech Affect: euthymic affect Results & Data ([facility]) Vital Signs (Past 12 Hours) Vital Signs Temp Pulse Pulse Resp BP Pulse Ox O2 Del Method 09/14/22 12:16 Nasal Cannula 09/14/22 12:16 36.8 C 91 H 16 93/64 L 97 Nasal Cannula 09/14/22 12:07 92 H 15 93/64 L 94 Nasal Cannula 09/14/22 07:12 106 H 16 100/67 98 Nasal Cannula 09/14/22 07:11 97 H 16 100/67 98 Nasal Cannula 09/14/22 03:55 110 H 22 100 O2 Flow Rate FiO2 09/14/22 12:16 4 09/14/22 12:16 4 09/14/22 12:07 4 09/14/22 07:12 4 09/14/22 07:11 4 09/14/22 03:55 80 Laboratory Results 09/14/22 04:36 09/14/22 10:34 u osm 313 u Na 46 s osm 271 mag 1.6 on presentation Diagnostic Findings chest CT 1. Cardiomegaly with intralobular septal thickening, intermixed groundglass and consolidative opacities. Findings are suggestive of interstitial and alveolar pulmonary edema. Multifocal pneumonia however could appear similarly. 2. Small layering pleural effusions. 3. Mild lymphadenopathy of the chest is similar to prior.
--- NOTE | 2022-09-14 13:38 | Cardiology Consultation ---
Date of Consultation September 14, 2022 Assessment & Plan (1) Pulmonary edema: (2) Hypertension: (3) Hyponatremia: - Patient has had serial high-sensitivity troponin levels this admission, the third of which is 1484 PG per mL. -No symptoms of ongoing angina at present. -Presentation similar to that noted in May,, with mild nonobstructive coronary heart disease noted at that time. -Patient reportedly has been adherent to medications as of recently, but I think nonadherence could still be a consideration. -Agree with nephrology input that appears to be hypervolemic hyponatremia. -Continue home blood pressure medications including metoprolol, losartan. Low- dose furosemide 20 mg IV twice daily. -Continue unfractioned heparin while troponin levels are being trended. -Update echocardiogram -Would have low threshold for admitting her antibiotics, or changing her to a regimen that would allow for less IV fluid intake such as monotherapy with oral doxycycline. History of Present Illness Attending Physician: Pj Mcintyre MD History of Present Illness Taj Laura is a 56 year old female seen in cardiology consultation per the request of Dr Jones for the evaluation of urgency, flash pulmonary edema. Patient presented via the emergency room overnight last night with initial chief complaint of feeling dizzy with noted presenting blood pressure of 197/113. She was found to be short of breath and hypoxic in the emergency department waiting room and was therefore placed in examination room, and placed on BiPAP, and received nebulizer therapy as well as IV furosemide and Nitropaste. The patient's symptoms reportedly were improving, but then received morphine for back pain and became hypotensive with systolic blood pressure 70s, prompting subsequent to 150 mL fluid bolus. At the time my assessment, patient was accompanied by her daughter. Oxygen requirement improved, with noted most recent pulse oximetry of 97% on 4 L nasal cannula, systolic blood pressures ranging from the 90s to the 120s as of recently. Of note, patient had a similar presentation in May, with high blood pressure and subsequent pulmonary edema and elevation in her troponin I, low sensitivity Troponin I peaked at 3.4 during that admission in 2020. She went on to have an echocardiogram that revealed low normal LVEF of 50 to 55%, intermittent left bundle branch block, and cardiac catheterization revealed mild nonobstructive coronary heart disease. The patient reportedly has been taking her medications as directed including aspirin, furosemide 40 mg daily, losartan 50 mg daily, metoprolol tartrate 25 mg twice daily and carvedilol 80 mg daily. Allergies Allergy/AdvReac Type Severity Reaction Status Date / Time No Known Allergies Allergy Verified 09/13/22 22:22 Home Medications Medication Instructions Recorded Confirmed Type metformin 500 mg tablet 1,000 mg PO BIDM 10/22/20 09/13/22 History aspirin 81 mg tablet,delayed 81 mg PO QAM 07/02/21 09/13/22 History release atorvastatin 80 mg tablet 80 mg PO HS 07/02/21 09/13/22 History metoprolol tartrate 25 mg tablet 25 mg PO BID #60 tabs 07/03/21 09/13/22 Rx losartan 50 mg tablet 50 mg PO QAM 09/13/22 09/13/22 History omeprazole 40 mg capsule,delayed 40 mg PO AMHS 09/13/22 09/13/22 History release Patient History Medical History Coronary artery disease Hyperlipemia Hypertension Hypertensive emergency LBBB (left bundle branch block) Non-ST elevation (NSTEMI) myocardial infarction Social History Smoking Status: Never smoker Hx Alcohol Use: No Hx Substance Use: No Preferred Language: Beth Communication Ability: Effective Communication Tools: Letter Board, Facial Expression and Physical Gestures Photolithographer Required: Yes Beliefs That Will Affect Care: None marital status: Current Living Situation: Spouse and Family Current Living Situation Comment: daughter, SCHUYLER, , grandchildren current occupational status: unemployed Feels Safe at Home: Yes Safety Concerns: Feels Safe At This Time Assistive Devices: None Review of Systems Review of Systems: All systems reviewed & are unremarkable except as noted in HPI & below Physical Exam Constitutional: + ill appearing; no acute distress Respiratory: no labored breathing and no cough Auscultation: + diminished lung sounds (Mildly decreased breath sounds at the bases); no crackles and no rales Gastrointestinal (Abdomen): normal bowel sounds, soft, nontender, no hepatosplenomegaly Neurologic: PERRL, EOMI, accommodation nl, no face palsy, no dysarthria Results & Data ([facility]) Vital Signs (Past 12 Hours) Vital Signs Temp Pulse Pulse Resp BP Pulse Ox O2 Del Method 09/14/22 12:16 Nasal Cannula 09/14/22 12:16 36.8 C 91 H 16 93/64 L 97 Nasal Cannula 09/14/22 12:07 92 H 15 93/64 L 94 Nasal Cannula 09/14/22 07:12 106 H 16 100/67 98 Nasal Cannula 09/14/22 07:11 97 H 16 100/67 98 Nasal Cannula 09/14/22 03:55 110 H 22 100 O2 Flow Rate FiO2 09/14/22 12:16 4 09/14/22 12:16 4 09/14/22 12:07 4 09/14/22 07:12 4 09/14/22 07:11 4 09/14/22 03:55 80 Laboratory Results Cardiac Enzymes 09/13/22 09/13/22 09/14/22 Range/Units 21:15 21:15 04:36 AST 17 (13-39) U/L Troponin I High Sens 17.2 H 920.9 H* D (0-14) pg/ml B-Natriuretic Peptide 68 (0-100) pg/ml 09/14/22 Range/Units 10:34 AST (13-39) U/L Troponin I High Sens 1484.6 H* D (0-14) pg/ml B-Natriuretic Peptide (0-100) pg/ml Coagulation 09/13/22 09/13/22 09/14/22 Range/Units 21:15 21:15 12:24 PT 10.2 (9.0-12.0) Seconds APTT 28.4 26.3 (21.0-31.0) Seconds B-Natriuretic Peptide 68 (0-100) pg/ml CBC 09/13/22 09/14/22 Range/Units 21:15 04:36 WBC 13.86 H 19.24 H (4.8-10.8) K/ul RBC 4.71 4.79 (3.93-5.22) M/uL Hgb 11.6 L 11.7 L (12.0-16.0) g/dl Hct 36.3 37.0 (34.1-44.9) % Plt Count 459 H 440 H (130-400) K/uL Neut # (Auto) 8.31 H 16.41 H (1.4-6.5) K/uL Lymph # (Auto) 4.20 H 1.76 (1.2-3.4) K/uL [place] # (Auto) 1.02 H 0.79 (0.24-0.82) K/uL Eos # (Auto) 0.14 0.00 (0-0.50) K/uL Baso # (Auto) 0.08 0.04 (0-0.2) K/uL Comprehensive Metabolic Panel 09/13/22 09/14/22 09/14/22 Range/Units 21:15 04:36 10:34 Sodium 126 L 121 L 127 L (136-145) mmol/L Potassium 4.4 4.2 4.1 (3.5-5.1) mmol/L Chloride 92 L 87 L 93 L (98-107) mmol/L Carbon Dioxide 25 23 25 (21-32) mmol/L BUN 13 16 13 (6-23) mg/dl Creatinine 0.50 L 0.72 0.56 L (0.6-1.2) mg/dl Glucose 121 H 181 H 129 H (70-99(Fasting)) mg/dl Calcium 9.0 8.4 L 8.6 (8.5-10.1) mg/dl AST 17 (13-39) U/L ALT 17 (7-52) U/L Alkaline Phosphatase 115 H (34-104) U/L Total Protein 7.2 (6.0-8.3) gm/dl Albumin 4.2 (3.4-5.0) gm/dl Intake and Output 09/13/22 09/14/22 09/14/22 22:59 06:59 14:59 Intake Total 500.5 / 500.5 429 / 429 Output Total 1200 / 1200 Balance 500.5 / 500.5 -771 / -771 Intake: IV 500.5 / 500.5 429 / 429 Doxycycline Hyclate 100 mg In 110 / 110 Dextrose 5% 100 ml @ 50 mls/hr IV Q12H [facility] Rx#:[id number] Heparin Sodium/Dextrose 25,000 104 / 104 units In 500 ml @ 750 UNITS/HR 15 mls/hr IV .Q24H [facility] Rx#: [id number] Magnesium Sulfate / D5w 1 gm In 100 / 100 100 / 100 100 ml @ 50 mls/hr IV ONE ONE Rx#:[id number] Piperacillin/Tazobactam 3.375 115 / 115 gm In Dextrose 5% 100 ml @ 230 mls/hr IV NOW ONE Rx#:[id number] Promethazine 12.5 mg In 50.5 ml 50.5 / 50.5 @ 202 mls/hr IV NOW STA Rx#: [id number] Sodium Chloride 0.9% 1000ML 250 250 / 250 ml @ 999 mls/hr IV .Q16M ONE Rx#:[id number] Sodium Chloride 3 % 100 ml @ 100 / 100 600 mls/hr IV .Q10M ONE Rx#: [id number] Output: Urine Amount (Catheter) 1200 / 1200 Momin/Indwelling 1200 / 1200 Other: Weight 85.2 kg 85.2 kg Weight Measurement Method Built in [facility] Patient Weight 09/15/22 06:59 Weight 85.2 kg Diagnostic Findings EKG tracings to the patient's distress last night, all of which revealed sinus rhythm with left bundle branch block. Chest x-ray x2 as well CT of the chest reports reviewed, findings suggest pulmonary edema, less likely pneumonia. (1) Pulmonary edema Chronicity: acute Qualified Code(s): J81.0 - Acute pulmonary edema (2) Hypertension Hypertension type: unspecified Qualified Code(s): I10 - Essential (primary) hypertension
[2022-09-14] MEDS ORDERED: HEPARIN SOD (PORCINE) 1000 UNIT/ML IV ONE ×2 (14:15→23:00)
--- NOTE | 2022-09-14 16:23 | Hospitalist Progress Note ---
Date of Service September 14, 2022 Assessment & Plan (1) Acute respiratory failure with hypoxia: (2) Acute on chronic diastolic (congestive) heart failure: (3) Community acquired pneumonia: (4) Non-ST elevation (NSTEMI) myocardial infarction: (5) Acute pulmonary edema: Plan: Patient presented with acute shortness of breath. Multifactorial; largely contributed by acute on chronic pulmonary edema, possible community-acquired pneumonia. Initially required BiPAP in the emergency department. Improvement in oxygenation to 4 L/min via nasal cannula with diuresis. Leukocytosis present Chest CT shows cardiomegaly with intermixed groundglass and consolidative opaci ties suggestive of interstitial and alveolar pulmonary edema. Multifocal pneumonia could be a possibility. Echo done today; diffuse left ventricular hypokinesis of the mid and apical segment of left ventricle with sparing of basal segments. EF of 35 to 39%. 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 Plan; - Continue on IV diuresis with Lasix 20 mg twice daily. Continue on heparin drip as per cardiology recommendation. Continue on aspirin, Lipitor and metoprolol. Trend troponin On ceftriaxone and doxycycline for possible multifocal pneumonia; will complete 5 to 7-day course. (6) Hyponatremia: Plan: Likely hypervolemic hyponatremia. Sodium of 126 on presentation; decreased to 121, improved back to 127. Currently on fluid restriction and Lasix. Goal of sodium correction is 133 by tomorrow AM. Nephrology on board Plan Chronic conditions; GERD on omeprazole Type 2 diabetes mellituson insulin sliding scale. Follow ACHS Full code DVT prophylaxis Heparin Disposition-patient lives at home with son, [id number]. Discharge back home after resolution of medical issues. Admission and Anticipated Discharge Date Admission Date: September 13, 2022 Subjective Patient seen and examined in bedside in the emergency department. Patient is lying on the bed comfortably; she is breathing comfortably. Reports an improvement in her shortness of breath. Off BiPAP and saturating at 4 L/min via nasal cannula. Momin in place draining clear urine. Review of Systems Review of Systems: All systems reviewed & are unremarkable except as noted in Subjective Physical Exam Physical Exam: Constitutional: WD/WN, vitals as above, NAD, sitting up in bed, pleasant, conversing easily Respiratory: Decreased breath sound at bilateral bases Cardiovascular: RRR, no murmur, no edema Vessels: no JVD or carotid bruit Chest: normal inspection of chest Abdomen: normal bowel sounds, soft, nontender, no hepatosplenomegaly Musculoskeletal: no cyanosis or clubbing, extremities motor strength 5/5. 1+ pitting edema Skin: no rashes, warm and dry normal turgor Neurologic: PERRL, EOMI, accommodation nl, no face palsy, no dysarthria CN's II- XI intact bilaterally and moves all extremities Psychiatric: A+Ox3, euthymic affect Lymphatic: no cervical or axillary lymphadenopathy : deferred Results & Data Results & Data ([facility]) Vital Signs (Past 12 Hours) Vital Signs Temp Pulse Pulse Resp BP Pulse Ox O2 Del Method 09/14/22 15:44 99 H 09/14/22 15:09 Nasal Cannula 09/14/22 14:39 36.7 C 103 H 20 124/81 99 Nasal Cannula 09/14/22 12:16 Nasal Cannula 09/14/22 12:16 36.8 C 91 H 16 93/64 L 97 Nasal Cannula 09/14/22 12:07 92 H 15 93/64 L 94 Nasal Cannula 09/14/22 07:12 106 H 16 100/67 98 Nasal Cannula 09/14/22 07:11 97 H 16 100/67 98 Nasal Cannula O2 Flow Rate 09/14/22 15:44 09/14/22 15:09 4 09/14/22 14:39 4 09/14/22 12:16 4 09/14/22 12:16 4 09/14/22 12:07 4 09/14/22 07:12 4 09/14/22 07:11 4 Laboratory Results Laboratory Results WBC 19.24 K/ul (4.8-10.8) H 09/14/22 04:36 RBC 4.79 M/uL (3.93-5.22) 09/14/22 04:36 Hgb 11.7 g/dl (12.0-16.0) L 09/14/22 04:36 Hct 37.0 % (34.1-44.9) 09/14/22 04:36 MCV 77.2 fL (80.0-100.0) L 09/14/22 04:36 MCH 24.4 pg (25.0-34.0) L 09/14/22 04:36 MCHC 31.6 g/dL (32.0-36.0) L 09/14/22 04:36 RDW Std Deviation 39.3 fL (36.4-46.3) 09/14/22 04:36 RDW Coeff of Roma 14.0 % (11.5-14.5) 09/14/22 04:36 Plt Count 440 K/uL (130-400) H 09/14/22 04:36 MPV 9.7 fL (9.4-12.3) 09/14/22 04:36 Immature Gran % (Auto) 1.2 % 09/14/22 04:36 Neut % (Auto) 85.4 % 09/14/22 04:36 Lymph % (Auto) 9.1 % 09/14/22 04:36 Park % (Auto) 4.1 % 09/14/22 04:36 Eos % (Auto) 0.0 % 09/14/22 04:36 Baso % (Auto) 0.2 % 09/14/22 04:36 Neut # (Auto) 16.41 K/uL (1.4-6.5) H 09/14/22 04:36 Lymph # (Auto) 1.76 K/uL (1.2-3.4) 09/14/22 04:36 Park # (Auto) 0.79 K/uL (0.24-0.82) 09/14/22 04:36 Eos # (Auto) 0.00 K/uL (0-0.50) 09/14/22 04:36 Baso # (Auto) 0.04 K/uL (0-0.2) 09/14/22 04:36 Immature Gran # (Auto) 0.24 K/uL (0.00-0.02) H 09/14/22 04:36 PT 10.2 Seconds (9.0-12.0) 09/13/22 21:15 INR 1.0 (0.9-1.1) 09/13/22 21:15 APTT 26.3 Seconds (21.0-31.0) 09/14/22 12:24 PTT Ratio 1.0 09/14/22 12:24 Sodium 127 mmol/L (136-145) L 09/14/22 10:34 Potassium 4.1 mmol/L (3.5-5.1) 09/14/22 10:34 Chloride 93 mmol/L (98-107) L 09/14/22 10:34 Carbon Dioxide 25 mmol/L (21-32) 09/14/22 10:34 Anion Gap 9 (3-11) 09/14/22 10:34 BUN 13 mg/dl (6-23) 09/14/22 10:34 Creatinine 0.56 mg/dl (0.6-1.2) L 09/14/22 10:34 Est Cr Clr Drug Dosing 112.2 ml/min 09/14/22 10:34 Est GFR ( Amer) 120.0 ml/min 09/14/22 10:34 Est GFR (Non-Af Amer) 103.5 ml/min 09/14/22 10:34 BUN/Creatinine Ratio 23.2 (10-20) H 09/14/22 10:34 Glucose 129 mg/dl (70-99(Fasting)) H 09/14/22 10:34 POC Glucose 150 mg/dl (70-99) H 09/14/22 09:53 Estimat Average Glucose 151 mg/dl 09/14/22 04:36 Hemoglobin A1c 6.9 % (4.5-5.6) H 09/14/22 04:36 Osmolality 271 mOsm/kg (280-300) L 09/14/22 04:36 Calcium 8.6 mg/dl (8.5-10.1) 09/14/22 10:34 Magnesium 1.7 mg/dl (1.7-2.4) 09/14/22 04:36 Iron 33 mcg/dl (35-150) L 09/14/22 04:36 TIBC 394 mcg/dl (250-450) 09/14/22 04:36 Unsaturated IBC 361 mcg/dl (155-355) H 09/14/22 04:36 Transferrin % Sat 8 % (15-50) L 09/14/22 04:36 Total Bilirubin 0.3 mg/dl (0.2-1.0) 09/13/22 21:15 AST 17 U/L (13-39) 09/13/22 21:15 ALT 17 U/L (7-52) 09/13/22 21:15 Alkaline Phosphatase 115 U/L (34-104) H 09/13/22 21:15 Troponin I High Sens 1484.6 pg/ml (0-14) H* D 09/14/22 10:34 B-Natriuretic Peptide 68 pg/ml (0-100) 09/13/22 21:15 Total Protein 7.2 gm/dl (6.0-8.3) 09/13/22 21:15 Albumin 4.2 gm/dl (3.4-5.0) 09/13/22 21:15 Globulin 3.0 gm/dl (2.5-4.0) 09/13/22 21:15 Albumin/Globulin Ratio 1.4 (0.9-2) 09/13/22 21:15 Vitamin B12 179 pg/ml (180-914) L 09/14/22 04:36 Folate 5.54 ng/ml (>5.38) 09/14/22 04:36 Urine Color Yellow 09/13/22 20:50 Urine Appearance Clear (Clear) 09/13/22 20:50 Urine pH 7.0 (4.5-7.5) 09/13/22 20:50 Ur Specific Damar 1.005 (1.000-1.030) 09/13/22 20:50 Urine Protein Negative (Negative) 09/13/22 20:50 Urine Glucose (UA) Negative (Negative) 09/13/22 20:50 Urine Ketones Negative (Negative) 09/13/22 20:50 Urine Blood Negative (Negative) 09/13/22 20:50 Urine Nitrite Negative (Negative) 09/13/22 20:50 Urine Bilirubin Negative (Negative) 09/13/22 20:50 Urine Urobilinogen Negative (Negative) 09/13/22 20:50 Ur Leukocyte Esterase 1+ (Negative) H 09/13/22 20:50 Urine WBC (Auto) 1-5 /hpf (0-5) 09/13/22 20:50 Urine RBC (Auto) 0-4 /hpf (0-4) 09/13/22 20:50 U Hyaline Cast (Auto) 0 /lpf (0-5) 09/13/22 20:50 U Epithel Cells (Auto) 5-10 /lpf (0-5) H 09/13/22 20:50 Urine Bacteria (Auto) Negative (Negative) 09/13/22 20:50 Urine Osmolality 313 mOsm/kg (500-800) L 09/14/22 05:30 Ur Random Sodium 46 mmol/L 09/14/22 05:30 SARS-CoV-2 (PCR) NEGATIVE (Negative) 09/13/22 21:56 Influenza Type A (PCR) Negative (Neg) 09/13/22 21:56 Influenza Type B (PCR) Negative (Neg) 09/13/22 21:56 RSV (RT-PCR) Negative (Neg) 09/13/22 21:56 Impressions Chest X-Ray 09/14/22 04:05 XR chest 1V portable HISTORY: 56 years-old Female pul edema acute shortness breath with pulmonary edema COMPARISON: Chest CT of same day, chest CT 09/13/2022 TECHNIQUE: AP view of the chest FINDINGS: Cardiac silhouette is enlarged. Pulmonary vascular congestion with mixed interstitial and alveolar opacities, mildly improved from the study obtained last evening. Trace pleural effusions. Bones appear grossly intact. IMPRESSION: 1. Cardiomegaly with mild improvement of the pulmonary edema. 2. Trace pleural effusions. ACT 112: Negative or not required by law. The above report was generated using voice recognition software. It may contain grammatical, syntax or spelling errors. Electronically signed by: Jose Banks M.D. 09/14/2022 7:[address] 09/14/22 05:33 CT chest diagnostic wo con CT DOSE: 300.40 mGy.cm CLINICAL HISTORY: 56 years-old Female with pul edema vs infiltrates. Acute shortness of breath TECHNIQUE: Multiaxial CT images of the chest were performed without contrast. A dose lowering technique was utilized adhering to the principles of ALARA. COMPARISON: Chest radiograph of same day and also 09/13/2022, CTA chest 07/29 FINDINGS: No thyroid nodule. There are a few nonspecific borderline enlarged mediastinal, hilar and axillary chain lymph nodes measuring up to 10 mm. Moderate cardiomegaly without pericardial effusion. No thoracic aortic aneurysm identified. Small right greater than left layering pleural effusions. No pneumothorax. Intralobular septal thickening with multifocal multisegmental bilateral patchy groundglass and consolidative opacities within a mid to lower lung zone predominant distribution. The central airways are patent. The liver appears enlarged. There is no acute process of the imaged upper abdomen. Unremarkable soft tissues. No acute fracture identified. Mild degenerative changes of the spine. IMPRESSION: 1. Cardiomegaly with intralobular septal thickening, intermixed groundglass and consolidative opacities. Findings are suggestive of interstitial and alveolar pulmonary edema. Multifocal pneumonia however could appear similarly. 2. Small layering pleural effusions. 3. Mild lymphadenopathy of the chest is similar to prior. ACT 112: Negative or not required by law. Electronically signed by: Jose Banks M.D. 09/14/2022 9:08 AM
--- NOTE | 2022-09-14 17:09 | Electrocardiogram Report ---
Test Reason : Blood Pressure : / mmHG Vent. Rate : 104 BPM Atrial Rate : 104 BPM P-R Int : 154 ms QRS Dur : 130 ms QT Int : 398 ms P-R-T Axes : 068 -09 128 degrees QTc Int : 523 ms Sinus tachycardia Left bundle branch block T wave abnormality, consider lateral ischemia Abnormal ECG When compared with ECG of 13-SEP-2022 20:46, (unconfirmed) Inverted T waves have replaced nonspecific T wave abnormality in Lateral leads QT has lengthened Confirmed by Zeus Pérez ([id number]) on 09/14/2022 5:09:13 PM Referred By: REFERRED SELF Confirmed By:Jt Pérez
--- NOTE | 2022-09-14 17:17 | Electrocardiogram Report ---
Test Reason : Blood Pressure : / mmHG Vent. Rate : 092 BPM Atrial Rate : 092 BPM P-R Int : 158 ms QRS Dur : 140 ms QT Int : 380 ms P-R-T Axes : 059 018 093 degrees QTc Int : 469 ms Normal sinus rhythm Left bundle branch block Abnormal ECG When compared with ECG of 29-JUL-2021 03:32, No significant change was found Confirmed by Zeus Pérez ([id number]) on 09/14/2022 5:17:12 PM Referred By: REFERRED SELF Confirmed By:Jt Pérez
[2022-09-14 17:53] LABS: BUN Creatinine Ratio 19.3 (10-20); Calcium 8.4 mg/dl (8.5-10.1); Creatinine Clr Calc Pharmacy 110.3 ml/min; Est GFR (African American) 119.3 ml/min; Est GFR (Non-African American) 102.9 ml/min; Potassium 4.3 mmol/L (3.5-5.1)
[2022-09-14 17:58] LABS: Troponin I High Sensitivity 1102.1 pg/ml (0-14)
[2022-09-14] MEDS: ACETAMINOPHEN 325 MG TAB PO PRN (18:37)
[2022-09-14] MEDS: DOXYCYCLINE HYCLATE 100 MG CAP PO SCH (20:04)
[2022-09-14] MEDS: ATORVASTATIN 40 MG TAB PO SCH (20:04)
[2022-09-14 20:28] LABS: Partial Thromboplastin Ratio 1.2; Partial Thromboplastin Time 32.7 Seconds (21.0-31.0)
[2022-09-14] MEDS ORDERED: cefTRIAXone SODIUM 2,000 MG in DEXTROSE 5% 50 ML IV SCH (21:00)
[2022-09-15] MEDS: HEPARIN SODIUM/DEXTROSE 25,000 UNITS/500 ML BAG IV SCH ×2 (06:05→06:50)
[2022-09-15 06:10] LABS: Basophils # (auto) 0.06 K/uL (0-0.2); Basophils % (auto) 0.5 %; Eosinophils # (auto) 0.13 K/uL (0-0.50); Hematocrit (blood only) 31.2 % (34.1-44.9); Immature Granulocytes # (auto) 0.08 K/uL (0.00-0.02); Immature Granulocytes % (auto) 0.6 %; Lymphocytes # (auto) 3.56 K/uL (1.2-3.4); Lymphocytes % (auto) 27.7 %; Mean Corpuscular Hemoglobin 24.6 pg (25.0-34.0); Mean Corpuscular Hgb Conc 32.1 g/dL (32.0-36.0); Mean Corpuscular Volume 76.7 fL (80.0-100.0); Mean Platelet Volume 10.5 fL (9.4-12.3); Monocytes # (auto) 1.14 K/uL (0.24-0.82); Monocytes % (auto) 8.9 %; Neutrophils % (auto) 61.3 %; Platelet Count 338 K/uL (130-400); RDW Coefficient of Variation 14.3 % (11.5-14.5); RDW Standard Deviation 39.6 fL (36.4-46.3); Red Blood Count 4.07 M/uL (3.93-5.22); White Blood Count 12.87 K/ul (4.8-10.8)
[2022-09-15 06:26] LABS: Partial Thromboplastin Ratio 1.1
[2022-09-15 06:40] LABS: Troponin I High Sensitivity 745.9 pg/ml (0-14)
[2022-09-15] MEDS ORDERED: HEPARIN SOD (PORCINE) 1000 UNIT/ML IV ONE (06:45)
[2022-09-15 08:46] LABS: Albumin Globulin Ratio 1.3 (0.9-2); Albumin Level 3.5 gm/dl (3.4-5.0); BUN Creatinine Ratio 21.2 (10-20); Bilirubin,Total 0.4 mg/dl (0.2-1.0); Creatinine Clr Calc Pharmacy 120.9 ml/min; Est GFR (African American) 122.9 ml/min; Est GFR (Non-African American) 106.1 ml/min; Globulin 2.6 gm/dl (2.5-4.0); Potassium 3.8 mmol/L (3.5-5.1); Total Protein 6.1 gm/dl (6.0-8.3)
[2022-09-15] MEDS: PANTOprazole 40 MG TAB PO SCH ×2 (09:08→20:00)
[2022-09-15] MEDS: DOXYCYCLINE HYCLATE 100 MG CAP PO SCH (09:08)
[2022-09-15] MEDS: ASPIRIN 81 MG ECTAB PO SCH (09:08)
[2022-09-15] MEDS: CYANOCOBALAMIN (B-12) 500 MCG TABLET PO SCH (09:08)
[2022-09-15] MEDS: INSULIN ASPART PER UNIT SC SCH ×4 (09:08→20:53)
[2022-09-15] MEDS: carvediloL 6.25 MG TAB PO SCH ×2 (09:26→20:00)
--- NOTE | 2022-09-15 09:46 | Electrocardiogram Report ---
Test Reason : Blood Pressure : / mmHG Vent. Rate : 086 BPM Atrial Rate : 086 BPM P-R Int : 172 ms QRS Dur : 128 ms QT Int : 456 ms P-R-T Axes : 059 009 190 degrees QTc Int : 545 ms Normal sinus rhythm Left bundle branch block T wave abnormality, consider inferolateral ischemia Abnormal ECG When compared with ECG of 14-SEP-2022 07:21, T wave inversion now evident in Inferior leads T wave inversion now evident in Anterior leads Confirmed by Zeus Pérez ([id number]) on 09/15/2022 9:46:28 AM Referred By: REFERRED SELF Confirmed By:Jt Pérez
--- NOTE | 2022-09-15 10:30 | Hospitalist Progress Note ---
Date of Service September 15, 2022 Assessment & Plan (1) Acute respiratory failure with hypoxia: (2) Hypertensive emergency: (3) Non-ST elevation (NSTEMI) myocardial infarction: (4) Cardiomyopathy: (5) Acute pulmonary edema: Plan: Patient presented with concerned for elevated blood pressure and became acutely short of breath in the waiting room of the ER. She was taken from the waiting room and placed on BIPAP acutely 2/2 flash pulmonary edema likely from elevated BP. Multifactorial; largely contributed by acute on chronic pulmonary edema, possible community-acquired pneumonia. Initially required BiPAP in the emergency department. Improvement in oxygenation to 4 L/min via nasal cannula and improvement in BP with diuresis and parenteral antihypertensives. Leukocytosis present on admission. Chest CT shows cardiomegaly with intermixed ground glass and consolidative opacities suggestive of interstitial and alveolar pulmonary edema. Multifocal pneumonia could be a possibility. Echo revealed diffuse left ventricular hypokinesis of the mid and apical segment of left ventricle with sparing of basal segments. EF of 35 to 39%. Overall pattern suggestive of catecholamine induced cardiomyopathy( Takotsubo cardiomyopathy) vs acute infarct. Further management per cardiology. - Continue on IV diuresis with Lasix 20 mg twice daily. Continue on heparin drip for NSTEMI. Continue on aspirin, Lipitor and metoprolol. troponin has peaked at 1484 and has trended down to 746 On ceftriaxone and doxycycline for possible multifocal pneumonia, however, there was no report of feeling ill prior to arrival and she has improved with diuresis. Pneumonia appears to be less likely at this time and procalcitonin also negative. Stopping antibiotics. (6) Hyponatremia: Plan: Likely hypervolemic hyponatremia. Sodium of 126 on presentation; decreased to 121, now 125 today. Currently on fluid restriction and Lasix. Cont management per nephrology (7) DMII (diabetes mellitus, type 2): Plan: controlled, A1C this admission is 6.9. Cont basal bolus insulin while inpatient. PT/OT consultation for ability to return home DVT proph: heparin drip Full code Dispo-came from home where she lives with adult children. Debbie Monzon DO [facility] Hospitalist Admission and Anticipated Discharge Date Admission Date: September 13, 2022 Subjective 56 yo F presented with concerns for high blood pressure. Entire encounter was discussed through the language line unit tender. She reports that at home she was feeling anxious acutely and checked her blood pressure, noting that it was high. She rarely checks her BP but states that she "felt it was high." Denied any pain or SOB at that time. Reports that when she arrived at the ER, while in the waiting room, this was when she became SOB. She is oxygenating well on 4LPM via NC. She is not taking her medications which are on the bedside table until she gets some food on her stomach. Evidently there have been alot of issues with mike ng her a vegetarian diet. I called culinary and specifically asked for someone with food options to use the language line to get her something that works. Reassured the patient that this was being done. She reports no pain or chest pain and her BP is improved today at 122/71. We discussed why she was here, which included heart failure and fluid in her lungs along with low sodium and blood pressure issues. She reports that she drank an extra 3-4 normal sized (20 oz?) water bottles to help drop her BP at home [employer]. Typically she drinks 7-8 of these daily. She is unaware of any dietary indiscretion, medication change or other reason why her blood pressure may have gone up initially. Review of Systems Review of Systems: all systems were reviewed and negative except as indicated in the HPI above. Physical Exam Physical Exam: CONSTITUTIONAL: obese, vitals as above, generally well- appearing, NAD EYES: normal conjunctivae, no scleral icterus ENT: external ear and nose normal, MMM NECK: trachea midline RESPIRATORY: Crackles at bases bilaterally, no rales or wheezes, normal respiratory effort, 4LPM via nasal canula in place. CARDIOVASCULAR: regular rate and rhythm, S1 and 2 heard without murmurs, gallops or rubs, no JVD, no peripheral edema CHEST: inspection of chest was normal GASTROINTESTINAL: soft, nontender, ND, no guarding MUSCULOSKELETAL: strength 5/5 throughout, head is normocephalic and atraumatic SKIN: warm and dry NEUROLOGIC: CN 2-12 grossly intact, no sensory deficit, normal cognition, normal speech, no tremor, no gross focal deficit. PSYCHIATRIC: alert cooperative and oriented to person, place and time. Euthymic mood, makes good eye contact, language grossly intact, recent and remote memory grossly intact. Results & Data Results & Data ([facility]) Vital Signs (Past 12 Hours) Vital Signs Temp Pulse Pulse Resp BP Pulse Ox O2 Del Method 12/28/22 07:28 36.7 C 80 18 122/71 99 Nasal Cannula 09/15/22 07:26 Nasal Cannula 09/15/22 07:03 83 09/15/22 03:44 36.7 C 87 20 113/73 97 Nasal Cannula 09/14/22 23:19 36.5 C 90 22 109/69 93 Nasal Cannula O2 Flow Rate 09/15/22 07:28 09/15/22 07:26 4 09/15/22 07:03 09/15/22 03:44 4 09/14/22 23:19 4 Laboratory Results Short CBC 09/15/22 Range/Units 05:32 WBC 12.87 H (4.8-10.8) K/ul Hgb 10.0 L (12.0-16.0) g/dl Hct 31.2 L (34.1-44.9) % Plt Count 338 (130-400) K/uL BMP 09/14/22 09/14/22 09/15/22 10:34 17:03 05:32 Sodium 127 L 124 L 125 L Potassium 4.1 4.3 3.8 Chloride 93 L 90 L 90 L Carbon Dioxide 25 24 29 BUN 13 11 11 Creatinine 0.56 L 0.57 L 0.52 L Glucose 129 H 138 H 122 H Calcium 8.6 8.4 L 8.0 L Liver Function 09/15/22 Range/Units 05:32 Total Bilirubin 0.4 (0.2-1.0) mg/dl AST 22 (13-39) U/L ALT 14 (7-52) U/L Alkaline Phosphatase 82 (34-104) U/L Albumin 3.5 (3.4-5.0) gm/dl Medications Administered Current Inpatient Medications Acetaminophen (Acetaminophen 325 Mg Tab) 650 mg PO Q4H PRN PRN Reason: Pain or Fever Stop: 10/14/22 01:06 Last Admin: 09/14/22 18:37 Dose: 650 mg Aspirin (Aspirin 81 Mg Ectab) [facility] [place] Stop: 10/14/22 08:59 Last Admin: 09/15/22 09:08 Dose: 81 mg Atorvastatin Calcium (Atorvastatin 40 Mg Tab) 80 mg PO HS [facility] Stop: 10/14/22 20:59 Last Admin: 09/14/22 20:04 Dose: 80 mg Carvedilol (Carvedilol 6.25 Mg Tab) 6.25 mg PO BID [facility] Stop: 10/15/22 08:59 Last Admin: 09/15/22 09:26 Dose: 6.25 mg Cyanocobalamin (Cyanocobalamin (B-12) 500 Mcg Tablet) 2,000 mcg PO QAM [facility] Stop: 10/14/22 10:14 Last Admin: 09/15/22 09:08 Dose: 2,000 mcg Dextrose (Dextrose 50% 50 Ml Syringe) 25 - 50 ml IV UD PRN; Protocol PRN Reason: Hypoglycemia Protocol Stop: 10/14/22 01:06 Doxycycline Hyclate (Doxycycline Hyclate 100 Mg Cap) 100 mg PO BID [facility] Stop: 09/21/22 20:59 Last Admin: 09/15/22 09:08 Dose: 100 mg Furosemide (Furosemide Inj 20 Mg/2 Ml Vial) 20 mg IV [id number] [facility] Stop: 10/14/22 08:59 Last Admin: 09/14/22 18:09 Dose: 20 mg Glucagon (Glucagon For Inj 1 Mg Vial) 1 mg SQ UD PRN; Protocol PRN Reason: Hypoglycemia Protocol Stop: 10/14/22 01:06 Glucose (Glucose 40% Gel 15 Gm Tube) 15 - 30 gm PO UD PRN; Protocol PRN Reason: Hypoglycemia Protocol Stop: 10/14/22 01:06 Glucose (Glucose 10 Tab/Tube) 4 - 8 tab PO UD PRN; Protocol PRN Reason: Hypoglycemia Treatment Stop: 10/14/22 01:06 Heparin Sodium/Dextrose (Heparin Sodium/Dextrose) 25,000 units in 500 mls @ 25 mls/hr IV .Q20H [facility]; Protocol Stop: 10/14/22 05:44 Last Titration: 09/15/22 06:59 Dose: 1,250 units/hr, 25 mls/hr Ceftriaxone Sodium 2,000 mg/ (Dextrose) 70 mls @ 100 mls/hr IV Q24H [facility]; Protocol Stop: 09/21/22 20:59 Last Infusion: 09/14/22 20:53 Dose: Infused Insulin Aspart (Insulin Aspart Per Unit) 0 units SC ACHS [facility] Stop: 10/14/22 07:29 Last Admin: 09/15/22 09:08 Dose: Not Given Losartan Potassium (Losartan Potassium 50 Mg Tab) 50 mg PO QAM [facility] Stop: 10/14/22 08:59 Miscellaneous (Carbohydrates For Hypoglycemia ) 15 - 30 gm PO UD PRN PRN Reason: Hypoglycemia Protocol Stop: 10/14/22 01:06 Nitroglycerin (Nitroglycerin Sl 0.4 Mg/Tab Tab) 0.4 mg SL Q5M PRN PRN Reason: Chest Pain Stop: 10/14/22 01:06 Pantoprazole Sodium (Pantoprazole 40 Mg Tab) 40 mg PO AMHS [facility] Stop: 10/14/22 08:59 Last Admin: 09/15/22 09:08 Dose: 40 mg Polyethylene Glycol (Polyethylene (Miralax) 17 Gm Pack) 17 gm PO DAILY PRN PRN Reason: Constipation Stop: 10/14/22 01:06
--- NOTE | 2022-09-15 11:20 | Cardiology Progress Note ---
Date of Service September 15, 2022 Assessment & Plan (1) Pulmonary edema: (2) Hypertension: (3) Hyponatremia: Plan: -Patient admitted for worsening SOB/flash pulmonary edema. -She had elevation in her HS troponin, peaking at 1484, and then trending down. Echo revealed interval decline in LV function with apical ballooning, consistent with stress induce cardiomyopathy. -EKG with chronic LBBB and worsening T wave inversions in the precordial leads, also consistent with stress induced cardiomyopathy. She had similar admission in May 2021 and underwent cardiac cath during that admission with mild non obstructive disease. Currently the patient is resting comfortably and denies symptoms of NSTEMI. Will continue IV heparin for now, and complete at 48 hours. Transition oral metoprolol tartrate to carvedilol for BP support and evidence based medication given cardiomyopathy. Continue losartan, statin, ASA. Given worsening hyponatremia yesterday, furosemide now on hold per nephro recommendations. Volume status and respiratory status appears improved as well. Case discussed with Dr. Quinn, will follow. (4) Takotsubo cardiomyopathy: Admission and Anticipated Discharge Date Admission Date: September 13, 2022 Supervising Physician Co-Signing Physician Notes Supervising Physician Attestation: I have personally performed a history and physical examination on the patient. I agree with the physician apartment assistant manager's findings and plan as documented with the following additions. Subjective: Patient interviewed, with the help of the language line park interpreter. Notes feeling better overall. Denies chest discomfort or shortness of breath Exam: Pulmonary: Clear to auscultation bilaterally Cardiovascular: Regular rhythm, no murmurs, no edema Data: EKG performed today 09/15/2022 and interpreted independently: Sinus rhythm 86 bpm, left bundle branch block, diffuse T wave inversions precordial leads, lateral leads, inferior leads Assessment and Plan: Echocardiogram findings suggestive of stress-induced cardiomyopathy, Takotsubo syndrome, with new hypokinesis involving the mid and apical segments of the left ventricle, relative sparing of the basal segments, and the relatively small troponin elevation is out of proportion to the significant echocardiographic changes and new LV systolic dysfunction. Blood pressure improved at present, not too high or too low. Ongoing sinus tachycardia noted, heart rates in the 100s. Worsening hyponatremia noted, agree with plan to hold furosemide with euvolemia noted on exam today. Plan for 48 hours of UF heparin. Continue ASA , coreg (replaces metoprolol), losartan, atorvastatin. DVT prophylaxis: UF heparin. Devon Quinn, DO Subjective Patient resting in bed comfortably. Laying supine without orthopnea, PND. NO edema. No cough. While language is limited, I offered to use the language line, but she declined. Says she is "good". No chest pain complaints. Review of Systems Review of Systems: All systems reviewed & are unremarkable except as noted in HPI & below Physical Exam Constitutional: well nourished; no acute distress Respiratory: no labored breathing and no cough Auscultation: + diminished lung sounds (Mildly decreased breath sounds at the bases); no crackles and no rales Cardiovascular: Rate/Rhythm: regular rate and regular rhythm Heart Sounds: no murmur Vessels: no JVD Extremities: no edema Gastrointestinal (Abdomen): normal bowel sounds, soft, nontender, no hepatosplenomegaly Neurologic: PERRL, EOMI, accommodation nl, no face palsy, no dysarthria Results & Data ([facility]) Vital Signs (Past 12 Hours) Vital Signs Temp Pulse Pulse Resp BP Pulse Ox O2 Del Method 09/15/22 07:28 36.7 C 80 18 122/71 99 Nasal Cannula 09/15/22 07:26 Nasal Cannula 09/15/22 07:03 83 09/15/22 03:44 36.7 C 87 20 113/73 97 Nasal Cannula 09/14/22 23:19 36.5 C 90 22 109/69 93 Nasal Cannula O2 Flow Rate 09/15/22 07:28 09/15/22 07:26 4 09/15/22 07:03 09/15/22 03:44 4 09/14/22 23:19 4 Laboratory Results Cardiac Enzymes 09/14/22 09/14/22 09/15/22 Range/Units 10:34 17:03 01:06 AST (13-39) U/L Troponin I High Sens 1484.6 H* D 1102.1 H* D 947.7 H* (0-14) pg/ml 09/15/22 Range/Units 05:32 AST 22 (13-39) U/L Troponin I High Sens 745.9 H* D (0-14) pg/ml Coagulation 09/14/22 09/14/22 09/15/22 Range/Units 12:24 19:53 05:32 APTT 26.3 32.7 H 31.0 (21.0-31.0) Seconds CBC 09/15/22 Range/Units 05:32 WBC 12.87 H (4.8-10.8) K/ul RBC 4.07 (3.93-5.22) M/uL Hgb 10.0 L (12.0-16.0) g/dl Hct 31.2 L (34.1-44.9) % Plt Count 338 (130-400) K/uL Neut # (Auto) 7.90 H (1.4-6.5) K/uL Lymph # (Auto) 3.56 H (1.2-3.4) K/uL [place] # (Auto) 1.14 H (0.24-0.82) K/uL Eos # (Auto) 0.13 (0-0.50) K/uL Baso # (Auto) 0.06 (0-0.2) K/uL Comprehensive Metabolic Panel 09/14/22 09/14/22 09/15/22 Range/Units 10:34 17:03 05:32 Sodium 127 L 124 L 125 L (136-145) mmol/L Potassium 4.1 4.3 3.8 (3.5-5.1) mmol/L Chloride 93 L 90 L 90 L (98-107) mmol/L Carbon Dioxide 25 24 29 (21-32) mmol/L BUN 13 11 11 (6-23) mg/dl Creatinine 0.56 L 0.57 L 0.52 L (0.6-1.2) mg/dl Glucose 129 H 138 H 122 H (70-99(Fasting)) mg/dl Calcium 8.6 8.4 L 8.0 L (8.5-10.1) mg/dl AST 22 (13-39) U/L ALT 14 (7-52) U/L Alkaline Phosphatase 82 (34-104) U/L Total Protein 6.1 (6.0-8.3) gm/dl Albumin 3.5 (3.4-5.0) gm/dl Intake and Output 09/14/22 09/15/22 09/15/22 22:59 06:59 14:59 Intake Total 617.977 / 1470.544 423.567 / 1470.544 Output Total 2049 450 / 3700 Balance -1432.023 / -2229.456 -26.433 / -2229.456 Intake: IV 242.977 / 920.544 248.567 / 920.544 Heparin Sodium/Dextrose 25,000 104.817 / 457.384 248.567 / 457.384 units In 500 ml @ 1,100 UNITS/ HR 22 mls/hr IV .[id number] [facility] Rx #:[id number] Piperacillin/Tazobactam 3.375 68.16 / 68.16 gm In Dextrose 5% 100 ml @ 28. 75 mls/hr IV Q8H [facility] Rx#: [id number] cefTRIAXone SODIUM 2,000 mg In 70 / 70 Dextrose 5% 50 ml @ 100 mls/hr IV Q24H [facility] Rx#:[id number] Oral 375 / 550 175 / 550 Output: Urine Amount (Catheter) 2049 450 / 3700 Momin/Indwelling 2049 450 / 3700 Diagnostic Findings EKG this morning: NSR with LBBB with more deep/inverted T waves noted in lateral leads Telemetry reviewed: NSR in the 80's, no arrhythmias noted overnight. Echo report reviewed: Aortic valve sclerosis mild without significant stenosis. Mild LVH Septal motion consistent with conduction abnormality. Diffuse LV hypokinesis of the mid and apical segments of the LV with sparing of the basal segments. LV systolic function is moderately reduced LVEF 35-39% Mild MR Doppler findings do not suggest pulmonary hypertension compared to prior study in 05/2021, there has been an interval decline in LVEF. Pattern of wall motion abnormality is suggestive of catecholamine induced cardiomyopathy with left apical ballooning. Medications Administered Current Inpatient Medications Acetaminophen (Acetaminophen 325 Mg Tab) 650 mg PO Q4H PRN PRN Reason: Pain or Fever Stop: 10/14/22 01:06 Last Admin: 09/14/22 18:37 Dose: 650 mg Aspirin (Aspirin 81 Mg Ectab) 81 mg PO QAM [facility] Stop: 10/14/22 08:59 Last Admin: 09/15/22 09:08 Dose: 81 mg Atorvastatin Calcium (Atorvastatin 40 Mg Tab) 80 mg PO HS [facility] Stop: 10/14/22 20:59 Last Admin: 09/14/22 20:04 Dose: 80 mg Carvedilol (Carvedilol 6.25 Mg Tab) 6.25 mg PO BID [facility] Stop: 10/15/22 08:59 Last Admin: 09/15/22 09:26 Dose: 6.25 mg Cyanocobalamin (Cyanocobalamin (B-12) 500 Mcg Tablet) 2,000 mcg PO QAM [facility] Stop: 10/14/22 10:14 Last Admin: 09/15/22 09:08 Dose: 2,000 mcg Dextrose (Dextrose 50% 50 Ml Syringe) 25 - 50 ml IV UD PRN; Protocol PRN Reason: Hypoglycemia Protocol Stop: 10/14/22 01:06 Furosemide (Furosemide Inj 20 Mg/2 Ml Vial) 20 mg IV BID17 [facility] Stop: 10/14/22 08:59 Last Admin: 09/14/22 18:09 Dose: 20 mg Glucagon (Glucagon For Inj 1 Mg Vial) 1 mg SQ UD PRN; Protocol PRN Reason: Hypoglycemia Protocol Stop: 10/14/22 01:06 Glucose (Glucose 40% Gel 15 Gm Tube) 15 - 30 gm PO UD PRN; Protocol PRN Reason: Hypoglycemia Protocol Stop: 10/14/22 01:06 Glucose (Glucose 10 Tab/Tube) 4 - 8 tab PO UD PRN; Protocol PRN Reason: Hypoglycemia Treatment Stop: 10/14/22 01:06 Heparin Sodium/Dextrose (Heparin Sodium/Dextrose) 25,000 units in 500 mls @ 25 mls/hr IV .Q20H [facility]; Protocol Stop: 10/14/22 05:44 Last Titration: 09/15/22 06:59 Dose: 1,250 units/hr, 25 mls/hr Insulin Aspart (Insulin Aspart Per Unit) 0 units SC ACHS [facility] Stop: 10/14/22 07:29 Last Admin: 09/15/22 09:08 Dose: Not Given Losartan Potassium (Losartan Potassium 50 Mg Tab) 50 mg PO QAM [facility] Stop: 10/14/22 08:59 Miscellaneous (Carbohydrates For Hypoglycemia ) 15 - 30 gm PO UD PRN PRN Reason: Hypoglycemia Protocol Stop: 10/14/22 01:06 Nitroglycerin (Nitroglycerin Sl 0.4 Mg/Tab Tab) 0.4 mg SL Q5M PRN PRN Reason: Chest Pain Stop: 10/14/22 01:06 Pantoprazole Sodium (Pantoprazole 40 Mg Tab) 40 mg PO AMHS [facility] Stop: 10/14/22 08:59 Last Admin: 09/15/22 09:08 Dose: 40 mg Polyethylene Glycol (Polyethylene (Miralax) 17 Gm Pack) 17 gm PO DAILY PRN PRN Reason: Constipation Stop: 10/14/22 01:06 (1) Pulmonary edema Chronicity: acute Qualified Code(s): J81.0 - Acute pulmonary edema (2) Hypertension Hypertension type: unspecified Qualified Code(s): I10 - Essential (primary) hypertension
[2022-09-15 13:19] LABS: Partial Thromboplastin Time 56.1 Seconds (21.0-31.0)
[2022-09-15] MEDS: ACETAMINOPHEN 325 MG TAB PO PRN (15:02)
--- NOTE | 2022-09-15 16:03 | Nephrology Progress Note ---
Date of Service September 15, 2022 Assessment & Plan Admission and Anticipated Discharge Date Admission Date: September 13, 2022 Subjective Assessment & Plan (1) Hyponatremia: hypervolemic hyponatremia with CHF/Flash pulm edema/NSTEMI/Low LVEF 30% Also was drinking lot of liquids pre admission Rec: 1 lasix 40 iv bid. measure I and O with ramsey. 2 FFR 1200 ml per day 3 na may not change much though S--feels fine. No SOb and no Chest pain. Physical Exam Constitutional: well developed, well nourished, + obese and cooperative; no acute distress Eyes: EOM intact bilaterally ENMT: Ears: no external ear abnormality Nose: no external nose abnormality Mouth: + dry oral mucous membranes Neck: no nuchal rigidity Respiratory: normal respiratory effort (lying flat comfortably on 4LNC) and able to speak in complete sentences; no labored breathing and no cough Auscultation: + crackles (coarse) and + bronchovesicular breath sounds; no diminished lung sounds Cardiovascular: Rate/Rhythm: regular rhythm and + tachycardic (in 90s) Extremities: no edema Gastrointestinal (Abdomen): Inspection/Auscultation: normal bowel sounds Percussion/Palpation: abdomen soft; abdomen nontender Musculoskeletal: Extremities: strength 5/5 throughout Skin: no rashes, warm and dry Neurologic: loza, fluent speech, no tremor Psychiatric: Orientation: oriented x 3 Speech: normal rate/rhythm/volume of speech Affect: euthymic affect Results & Data ([facility]) Vital Signs (Past 12 Hours) Vital Signs Temp Pulse Pulse Resp BP Pulse Ox O2 Del Method 09/15/22 15:35 36.7 C 95 H 20 144/88 H 94 Nasal Cannula 09/15/22 11:36 98 Nasal Cannula 09/15/22 10:23 99 Nasal Cannula 09/15/22 11:33 37 C 108 H 18 126/83 98 Nasal Cannula 09/15/22 07:28 36.7 C 80 18 122/71 99 Nasal Cannula 09/15/22 07:26 Nasal Cannula 09/15/22 07:03 83 O2 Flow Rate 09/15/22 15:35 3 09/15/22 11:36 3 09/15/22 10:23 4 09/15/22 11:33 3 09/15/22 07:28 3 09/15/22 07:26 4 09/15/22 07:03
[2022-09-15] MEDS: FUROSEMIDE 40 MG/4 ML VIAL IV SCH (16:40)
[2022-09-15] MEDS: ATORVASTATIN 40 MG TAB PO SCH (20:00)
[2022-09-16] MEDS: HEPARIN SODIUM/DEXTROSE 25,000 UNITS/500 ML BAG IV SCH ×2 (01:19→07:11)
[2022-09-16] MEDS: FUROSEMIDE 40 MG/4 ML VIAL IV SCH ×2 (05:05→15:22)
[2022-09-16 06:37] LABS: Partial Thromboplastin Ratio 1.6; Partial Thromboplastin Time 43.9 Seconds (21.0-31.0)
[2022-09-16] MEDS: CYANOCOBALAMIN (B-12) 500 MCG TABLET PO SCH (08:44)
[2022-09-16] MEDS: PANTOprazole 40 MG TAB PO SCH ×2 (08:44→20:25)
[2022-09-16] MEDS: carvediloL 6.25 MG TAB PO SCH (08:44)
[2022-09-16] MEDS: ASPIRIN 81 MG ECTAB PO SCH (08:44)
[2022-09-16] MEDS: INSULIN ASPART PER UNIT SC SCH ×4 (08:45→21:01)
[2022-09-16] MEDS: ACETAMINOPHEN 325 MG TAB PO PRN (09:21)
[2022-09-16] MEDS ORDERED: carvediloL 6.25 MG TAB PO ONE (10:01)
[2022-09-16 10:47] LABS: Basophils # (auto) 0.06 K/uL (0-0.2); Basophils % (auto) 0.5 %; Eosinophils # (auto) 0.21 K/uL (0-0.50); Eosinophils % (auto) 1.7 %; Hematocrit (blood only) 34.9 % (34.1-44.9); Hemoglobin 11.4 g/dl (12.0-16.0); Immature Granulocytes # (auto) 0.09 K/uL (0.00-0.02); Immature Granulocytes % (auto) 0.7 %; Lymphocytes # (auto) 2.65 K/uL (1.2-3.4); Mean Corpuscular Hemoglobin 24.5 pg (25.0-34.0); Mean Corpuscular Hgb Conc 32.7 g/dL (32.0-36.0); Mean Corpuscular Volume 75.1 fL (80.0-100.0); Mean Platelet Volume 9.8 fL (9.4-12.3); Monocytes # (auto) 1.14 K/uL (0.24-0.82); Monocytes % (auto) 9.5 %; Neutrophils # (auto) 7.87 K/uL (1.4-6.5); Neutrophils % (auto) 65.6 %; Platelet Count 373 K/uL (130-400); RDW Coefficient of Variation 14.6 % (11.5-14.5); RDW Standard Deviation 39.5 fL (36.4-46.3); Red Blood Count 4.65 M/uL (3.93-5.22); White Blood Count 12.02 K/ul (4.8-10.8)
[2022-09-16 11:14] LABS: BUN Creatinine Ratio 17.5 (10-20); Calcium 9.2 mg/dl (8.5-10.1); Creatinine Clr Calc Pharmacy 110.3 ml/min; Est GFR (African American) 119.3 ml/min; Est GFR (Non-African American) 102.9 ml/min
--- NOTE | 2022-09-16 11:50 | Cardiology Progress Note ---
Date of Service September 16, 2022 Assessment & Plan (1) Pulmonary edema: (2) Hypertension: (3) Hyponatremia: (4) Takotsubo cardiomyopathy: Plan -Patient admitted for worsening SOB/flash pulmonary edema. -She had elevation in her HS troponin, peaking at 1484, and then trending down. -Echo revealed interval decline in LV function with apical ballooning, consistent with stress induced cardiomyopathy. -EKG with chronic LBBB and worsening T wave inversions in the precordial leads, also consistent with stress induced cardiomyopathy. She had similar admission in May 2021 and underwent cardiac cath during that admission with mild non obstructive disease. Currently the patient is resting comfortably and denies symptoms of NSTEMI. Discontinue IV heparin having completed 48 hours of therapy. Transition oral metoprolol tartrate to carvedilol for BP support and evidence based medication given cardiomyopathy. Titrate dose to 12.5 mg BID today. Monitor HR and BP. Continue losartan, statin, ASA. Nephrology following for hyponatremia, diuretics initially held, but now i ncreased. BMP results pending at time of evaluation. Volume status and respiratory status appears improved as well. Case discussed with Dr. Quinn, will follow. Admission and Anticipated Discharge Date Admission Date: September 13, 2022 Supervising Physician Co-Signing Physician Notes Supervising Physician Attestation: I have personally performed a history and physical examination on the patient. I agree with the physician assistant health educator's findings and plan as documented with the following additions. Subjective: Patient denies chest discomfort or shortness of breath. Comfortable lying supine from respiratory status standpoint. Hypertension resolved, blood pressure borderline low, most recent measurement 99/67. Exam: Cardiovascular: Regular rhythm, no murmurs, no edema Data: Sodium 130 mmol/L as compared to 125 on 09/15/2022 Assessment and Plan: Hypertensive urgency Pulmonary edema with associated respiratory distress, resolved Hyponatremia Catecholamine induced cardiomyopathy, Takotsubo syndrome -Nephrology input noted and appreciated, patient back on furosemide 40 mg IV twice daily -Continue carvedilol (replaces TRANSPORT PILOT metoprolol) -Losartan on hold due to relative hypotension -Discontinue heparin infusion having completed 48 hours of therapy, start Lovenox DVT prophylaxis dose 09/17 Devon Quinn, DO Subjective Patient resting in bed comfortably. Declined use of translation services. Reports she is "good". Resting comfortably. Laying supine. Denies chest pain, cough, SOB. No edema. Nephrology following and increased furosemide yesterday. Review of Systems Review of Systems: All systems reviewed & are unremarkable except as noted in HPI & below Physical Exam Constitutional: well nourished; no acute distress Respiratory: no labored breathing and no cough Auscultation: + diminished lung sounds (Mildly decreased breath sounds at the bases) and + wheezes; no crackles and no rales Cardiovascular: Rate/Rhythm: regular rate and regular rhythm Heart Sounds: no murmur Vessels: no JVD Extremities: no edema Gastrointestinal (Abdomen): normal bowel sounds, soft, nontender, no hepatosplenomegaly Neurologic: PERRL, EOMI, accommodation nl, no face palsy, no dysarthria Results & Data ([facility]) Vital Signs (Past 12 Hours) Vital Signs Temp Pulse Pulse Resp BP Pulse Ox O2 Del Method 09/16/22 10:57 36.6 C 87 19 99/67 L 91 Room Air 09/16/22 10:14 Room Air 09/16/22 09:37 93 Room Air 09/16/22 07:34 88 09/16/22 07:24 36.5 C 73 19 113/65 98 Nasal Cannula 09/16/22 03:49 36.4 C L 83 18 120/76 98 Nasal Cannula O2 Flow Rate 09/16/22 10:57 09/16/22 10:14 09/16/22 09:37 09/16/22 07:34 09/16/22 07:24 2 09/16/22 03:49 3 Laboratory Results Coagulation 09/15/22 09/16/22 Range/Units 12:33 05:43 APTT 56.1 H* 43.9 H (21.0-31.0) Seconds CBC 09/16/22 Range/Units 10:21 WBC 12.02 H (4.8-10.8) K/ul RBC 4.65 (3.93-5.22) M/uL Hgb 11.4 L (12.0-16.0) g/dl Hct 34.9 (34.1-44.9) % Plt Count 373 (130-400) K/uL Neut # (Auto) 7.87 H (1.4-6.5) K/uL Lymph # (Auto) 2.65 (1.2-3.4) K/uL [place] # (Auto) 1.14 H (0.24-0.82) K/uL Eos # (Auto) 0.21 (0-0.50) K/uL Baso # (Auto) 0.06 (0-0.2) K/uL Comprehensive Metabolic Panel 09/16/22 Range/Units 10:21 Sodium 130 L (136-145) mmol/L Potassium 4.0 (3.5-5.1) mmol/L Chloride 92 L (98-107) mmol/L Carbon Dioxide 30 (21-32) mmol/L BUN 10 (6-23) mg/dl Creatinine 0.57 L (0.6-1.2) mg/dl Glucose 125 H (70-99(Fasting)) mg/dl Calcium 9.2 (8.5-10.1) mg/dl Intake and Output 09/15/22 09/16/22 09/16/22 22:59 06:59 14:59 Intake Total 456.25 / 1872.083 572.083 / 1872.083 Output Total 2650 / 5250 1000 / 5250 Balance -2193.75 / -3377.917 -427.917 / -3377.917 Intake: IV 156.25 / 597.083 297.083 / 597.083 Heparin Sodium/Dextrose 25,000 156.25 / 597.083 297.083 / 597.083 units In 500 ml @ 1,250 UNITS/ HR 25 mls/hr IV .Q20H [facility] Rx#: [id number] Oral 300 / 1275 275 / 1275 Output: Urine Amount (Catheter) 2650 / 5250 1000 / 5250 Momin/Indwelling 2650 / 5250 1000 / 5250 Diagnostic Findings Telemetry reviewed: NSR in the 80-90 bpm with intermittent PVC's and runs of bigeminy. Medications Administered Current Inpatient Medications Acetaminophen (Acetaminophen 325 Mg Tab) 650 mg PO Q4H PRN PRN Reason: Pain or Fever Stop: 10/14/22 01:06 Last Admin: 09/16/22 09:21 Dose: 650 mg Aspirin (Aspirin 81 Mg Ectab) [facility] Stop: 10/14/22 08:59 Last Admin: 09/16/22 08:44 Dose: 81 mg Atorvastatin Calcium (Atorvastatin 40 Mg Tab) 80 mg PO HS [facility] Stop: 10/14/22 20:59 Last Admin: 09/15/22 20:00 Dose: 80 mg Carvedilol (Carvedilol 12.5 Mg Tab) 12.5 mg PO BID [facility] Stop: 10/16/22 20:59 Cyanocobalamin (Cyanocobalamin (B-12) 500 Mcg Tablet) 2,000 mcg PO QAM [facility] Stop: 10/14/22 10:14 Last Admin: 09/16/22 08:44 Dose: 2,000 mcg Dextrose (Dextrose 50% 50 Ml Syringe) 25 - 50 ml IV UD PRN; Protocol PRN Reason: Hypoglycemia Protocol Stop: 10/14/22 01:06 Furosemide (Furosemide Inj 20 Mg/2 Ml Vial) 20 mg IV BID17 [facility] Stop: 10/14/22 08:59 Last Admin: 09/14/22 18:09 Dose: 20 mg Furosemide (Furosemide 40 Mg/4 Ml Vial) 40 mg IV Q12H [facility] Stop: 10/15/22 16:14 Last Admin: 09/16/22 05:05 Dose: 40 mg Glucagon (Glucagon For Inj 1 Mg Vial) 1 mg SQ UD PRN; Protocol PRN Reason: Hypoglycemia Protocol Stop: 10/14/22 01:06 Glucose (Glucose 40% Gel 15 Gm Tube) 15 - 30 gm PO UD PRN; Protocol PRN Reason: Hypoglycemia Protocol Stop: 10/14/22 01:06 Glucose (Glucose 10 Tab/Tube) 4 - 8 tab PO UD PRN; Protocol PRN Reason: Hypoglycemia Treatment Stop: 10/14/22 01:06 Heparin Sodium/Dextrose (Heparin Sodium/Dextrose) 25,000 units in 500 mls @ 26 mls/hr IV .[id number] [facility]; Protocol Stop: 10/14/22 05:44 Last Admin: 09/16/22 07:11 Dose: Not Given Insulin Aspart (Insulin Aspart Per Unit) 0 units SC ACHS [facility] Stop: 10/14/22 07:29 Last Admin: 09/16/22 08:45 Dose: Not Given Losartan Potassium (Losartan Potassium 50 Mg Tab) 50 mg PO QAM [facility] Stop: 10/14/22 08:59 Miscellaneous (Carbohydrates For Hypoglycemia ) 15 - 30 gm PO UD PRN PRN Reason: Hypoglycemia Protocol Stop: 10/14/22 01:06 Nitroglycerin (Nitroglycerin Sl 0.4 Mg/Tab Tab) 0.4 mg SL Q5M PRN PRN Reason: Chest Pain Stop: 10/14/22 01:06 Pantoprazole Sodium (Pantoprazole 40 Mg Tab) 40 mg PO AMHS [facility] Stop: 10/14/22 08:59 Last Admin: 09/16/22 08:44 Dose: 40 mg Polyethylene Glycol (Polyethylene (Miralax) 17 Gm Pack) 17 gm PO DAILY PRN PRN Reason: Constipation Stop: 10/14/22 01:06 (1) Pulmonary edema Chronicity: acute Qualified Code(s): J81.0 - Acute pulmonary edema (2) Hypertension Hypertension type: unspecified Qualified Code(s): I10 - Essential (primary) hypertension
--- NOTE | 2022-09-16 13:25 | Nephrology Progress Note ---
Date of Service September 16, 2022 Assessment & Plan Admission and Anticipated Discharge Date Admission Date: September 13, 2022 Subjective Subjective Assessment & Plan (1) Hyponatremia: hypervolemic hyponatremia with CHF/Flash pulm edema/NSTEMI/Low LVEF 30% Also was drinking lot of liquids pre admission Rec: 1 Given lowish BP Losartan held. Lower the Lasix to 20 iv bid. After AM dose tomorrow wont need iv lasix. measure I and O with ramsey. 2 FFR 1200 ml per day S--feels fine. made 5250 ml of urine and now BP somewhat low. No SOb and no Chest pain. Physical Exam Constitutional: well developed, well nourished, + obese and cooperative; no acute distress Eyes: EOM intact bilaterally ENMT: Ears: no external ear abnormality Nose: no external nose abnormality Mouth: + dry oral mucous membranes Neck: no nuchal rigidity Respiratory: normal respiratory effort (lying flat comfortably on 4LNC) and able to speak in complete sentences; no labored breathing and no cough Auscultation: + crackles (coarse) and + bronchovesicular breath sounds; no diminished lung sounds Cardiovascular: Rate/Rhythm: regular rhythm and + tachycardic (in 90s) Extremities: no edema Gastrointestinal (Abdomen): Inspection/Auscultation: normal bowel sounds Percussion/Palpation: abdomen soft; abdomen nontender Musculoskeletal: Extremities: strength 5/5 throughout Skin: no rashes, warm and dry Neurologic: loza, fluent speech, no tremor Psychiatric: Orientation: oriented x 3 Speech: normal rate/rhythm/volume of speech Affect: euthymic affect Results & Data ([facility]) Vital Signs (Past 12 Hours) Vital Signs Temp Pulse Pulse Resp BP Pulse Ox O2 Del Method 09/16/22 10:57 36.6 C 87 19 99/67 L 91 Room Air 09/16/22 10:14 Room Air 09/16/22 09:37 93 Room Air 09/16/22 07:34 88 09/16/22 07:24 36.5 C 73 19 113/65 98 Nasal Cannula 09/16/22 03:49 36.4 C L 83 18 120/76 98 Nasal Cannula O2 Flow Rate 09/16/22 10:57 09/16/22 10:14 09/16/22 09:37 09/16/22 07:34 09/16/22 07:24 2 09/16/22 03:49 3
--- NOTE | 2022-09-16 13:26 | Communication Note ---
Date of Service: September 16, 2022 Updated pt's family at the bedside.
--- NOTE | 2022-09-16 18:00 | Hospitalist Progress Note ---
Date of Service September 16, 2022 Assessment & Plan (1) Acute respiratory failure with hypoxia: (2) Takotsubo cardiomyopathy: (3) Hypertensive emergency: (4) Non-ST elevation (NSTEMI) myocardial infarction: (5) Cardiomyopathy: (6) Acute pulmonary edema: Plan: Patient presented with concerned for elevated blood pressure and became acutely short of breath in the waiting room of the ER. She was taken from the waiting room and placed on BIPAP acutely 2/2 flash pulmonary edema likely from elevated BP. Multifactorial; largely contributed by acute on chronic pulmonary edema, possible community-acquired pneumonia. Initially required BiPAP in the emergency department. Improvement in oxygenation to 4 L/min via nasal cannula and improvement in BP with diuresis and parenteral antihypertensives. Leukocytosis present on admission. Chest CT shows cardiomegaly with intermixed ground glass and consolidative opacities suggestive of interstitial and alveolar pulmonary edema. Multifocal pneumonia could be a possibility. Echo revealed diffuse left ventricular hypokinesis of the mid and apical segment of left ventricle with sparing of basal segments. EF of 35 to 39%. Overall pattern suggestive of catecholamine induced cardiomyopathy( Takotsubo cardiomyopathy) vs acute infarct. Further management per cardiology. - Continue on IV diuresis with Lasix 20 mg twice daily. Continued on heparin drip for NSTEMI for 48 hours. Continue on aspirin, Lipitor and metoprolol changed to carvedilol. -will restart Losartan which has been held, and given additional agents and current BP will drop it by 50% to 25mg daily. troponin has peaked at 1484 and has trended down to 746 -antibiotics were stopped yesterday and she continues to improve. (7) Hyponatremia: Plan: Likely hypervolemic hyponatremia. Sodium of improved to 130 today. Currently on fluid restriction and Lasix, decreased to 20mg IV If stable tomorrow and >128, she will go home. (8) DMII (diabetes mellitus, type 2): Plan: controlled, A1C this admission is 6.9. Cont basal bolus insulin while inpatient. DVT proph: Lovenox Full code Dispo-to home with her adult children. Debbie Monzon DO [facility] Hospitalist Admission and Anticipated Discharge Date Admission Date: September 13, 2022 Subjective 56 yo F presented with concerns for high blood pressure and flash pulmonary edema causing acute respiratory failure. Subsequent clinical picture consistent with a Takotsobus cardiomyopathy. discussed visit through a [facility] language teacher on the language line patient is feeling well, off oxygen and was walking around feeling no shortness patel breath she asked if her lungs are clear when I listened and I told her yes We discussed the working diagnosis and the treatments She said that her stressors are that her SCHUYLER is a drinker and her daughter has been for 10-12 years and has no children yet We talked about the importance of dealing with those stressors in a more positive way to help keep her heart strong and she verbalized understanding. Review of Systems Review of Systems: all systems were reviewed and negative except as indicated in the HPI above. Physical Exam Physical Exam: CONSTITUTIONAL: obese, vitals as above, generally well- appearing, NAD EYES: normal conjunctivae, no scleral icterus ENT: external ear and nose normal, MMM NECK: trachea midline RESPIRATORY: clear to auscultation throughout. no rales or wheezes, normal respiratory effort CARDIOVASCULAR: regular rate and rhythm, S1 and 2 heard without murmurs, gallops or rubs, no JVD, no peripheral edema CHEST: inspection of chest was normal GASTROINTESTINAL: soft, nontender, ND, no guarding MUSCULOSKELETAL: strength 5/5 throughout, head is normocephalic and atraumatic SKIN: warm and dry NEUROLOGIC: CN 2-12 grossly intact, no sensory deficit, normal cognition, normal speech, no tremor, no gross focal deficit. PSYCHIATRIC: alert cooperative and oriented to person, place and time. Euthymic mood, makes good eye contact, language grossly intact, recent and remote memory grossly intact. Results & Data Results & Data ([facility]) Vital Signs (Past 12 Hours) Vital Signs Temp Pulse Pulse Resp BP Pulse Ox O2 Del Method 09/16/22 15:43 81 09/16/22 15:24 36.6 C 87 18 128/68 93 Room Air 09/16/22 10:57 36.6 C 87 19 99/67 L 91 Room Air 09/16/22 10:14 Room Air 09/16/22 09:37 93 Room Air 09/16/22 07:34 88 09/16/22 07:24 36.5 C 73 19 113/65 98 Nasal Cannula O2 Flow Rate 09/16/22 15:43 09/16/22 15:24 09/16/22 10:57 09/16/22 10:14 09/16/22 09:37 12/29/22 07:34 09/16/22 07:24 2 Laboratory Results Short CBC 09/16/22 Range/Units 10:21 WBC 12.02 H (4.8-10.8) K/ul Hgb 11.4 L (12.0-16.0) g/dl Hct 34.9 (34.1-44.9) % Plt Count 373 (130-400) K/uL BMP 09/16/22 10:21 Sodium 130 L Potassium 4.0 Chloride 92 L Carbon Dioxide 30 BUN 10 Creatinine 0.57 L Glucose 125 H Calcium 9.2 Medications Administered Current Inpatient Medications Acetaminophen (Acetaminophen 325 Mg Tab) 650 mg PO Q4H PRN PRN Reason: Pain or Fever Stop: 10/14/22 01:06 Last Admin: 09/16/22 09:21 Dose: 650 mg Aspirin (Aspirin 81 Mg Ectab) 81 mg PO QAM [facility] Stop: 10/14/22 08:59 Last Admin: 09/16/22 08:44 Dose: 81 mg Atorvastatin Calcium (Atorvastatin 40 Mg Tab) 80 mg PO HS CONSTANZA Stop: 10/14/22 20:59 Last Admin: 09/15/22 20:00 Dose: 80 mg Carvedilol (Carvedilol 12.5 Mg Tab) 12.5 mg PO BID CONSTANZA Stop: 10/16/22 20:59 Cyanocobalamin (Cyanocobalamin (B-12) 500 Mcg Tablet) 2,000 mcg PO QAM CONSTANZA Stop: 10/14/22 10:14 Last Admin: 09/16/22 08:44 Dose: 2,000 mcg Dextrose (Dextrose 50% 50 Ml Syringe) 25 - 50 ml IV UD PRN; Protocol PRN Reason: Hypoglycemia Protocol Stop: 10/14/22 01:06 Enoxaparin Sodium (Enoxaparin Inj 40 Mg/0.4 Ml Syr) 40 mg SQ QAM CONSTANZA Stop: 10/17/22 08:59 Furosemide (Furosemide 40 Mg/4 Ml Vial) 20 mg IV Q12H CONSTANZA Stop: 10/15/22 14:29 Last Admin: 09/16/22 15:22 Dose: 20 mg Glucagon (Glucagon For Inj 1 Mg Vial) 1 mg SQ UD PRN; Protocol PRN Reason: Hypoglycemia Protocol Stop: 10/14/22 01:06 Glucose (Glucose 40% Gel 15 Gm Tube) 15 - 30 gm PO UD PRN; Protocol PRN Reason: Hypoglycemia Protocol Stop: 10/14/22 01:06 Glucose (Glucose 10 Tab/Tube) 4 - 8 tab PO UD PRN; Protocol PRN Reason: Hypoglycemia Treatment Stop: 10/14/22 01:06 Insulin Aspart (Insulin Aspart Per Unit) 0 units SC ACHS [facility] Stop: 10/14/22 07:29 Last Admin: 09/16/22 16:47 Dose: Not Given Losartan Potassium (Losartan Potassium 50 Mg Tab) 50 mg PO QAM [facility] Stop: 10/14/22 08:59 Miscellaneous (Carbohydrates For Hypoglycemia ) 15 - 30 gm PO UD PRN PRN Reason: Hypoglycemia Protocol Stop: 10/14/22 01:06 Nitroglycerin (Nitroglycerin Sl 0.4 Mg/Tab Tab) 0.4 mg SL Q5M PRN PRN Reason: Chest Pain Stop: 10/14/22 01:06 Pantoprazole Sodium (Pantoprazole 40 Mg Tab) 40 mg PO AMHS [facility] Stop: 10/14/22 08:59 Last Admin: 09/16/22 08:44 Dose: 40 mg Polyethylene Glycol (Polyethylene (Miralax) 17 Gm Pack) 17 gm PO DAILY PRN PRN Reason: Constipation Stop: 10/14/22 01:06
[2022-09-16] MEDS: ATORVASTATIN 40 MG TAB PO SCH (20:26)
[2022-09-16] MEDS ORDERED: carvediloL 12.5 MG TAB PO SCH (21:00)
[2022-09-17] MEDS: FUROSEMIDE 40 MG/4 ML VIAL IV SCH (02:57)
[2022-09-17 06:23] LABS: Hematocrit (blood only) 36.1 % (34.1-44.9); Hemoglobin 11.6 g/dl (12.0-16.0); Mean Corpuscular Hemoglobin 24.5 pg (25.0-34.0); Mean Corpuscular Hgb Conc 32.1 g/dL (32.0-36.0); Mean Corpuscular Volume 76.3 fL (80.0-100.0); Mean Platelet Volume 10.1 fL (9.4-12.3); Platelet Count 384 K/uL (130-400); RDW Coefficient of Variation 14.6 % (11.5-14.5); RDW Standard Deviation 39.7 fL (36.4-46.3); Red Blood Count 4.73 M/uL (3.93-5.22); White Blood Count 11.65 K/ul (4.8-10.8)
[2022-09-17 06:51] LABS: Albumin Globulin Ratio 1.3 (0.9-2); Albumin Level 4.2 gm/dl (3.4-5.0); Bilirubin,Total 0.5 mg/dl (0.2-1.0); Calcium 9.4 mg/dl (8.5-10.1); Est GFR (African American) 116.6 ml/min; Est GFR (Non-African American) 100.6 ml/min; Globulin 3.2 gm/dl (2.5-4.0); Potassium 4.1 mmol/L (3.5-5.1); Total Protein 7.4 gm/dl (6.0-8.3)
[2022-09-17] MEDS: INSULIN ASPART PER UNIT SC SCH ×2 (08:06→11:54)
[2022-09-17] MEDS: ASPIRIN 81 MG ECTAB PO SCH (08:54)
[2022-09-17] MEDS: CYANOCOBALAMIN (B-12) 500 MCG TABLET PO SCH (08:54)
[2022-09-17] MEDS: PANTOprazole 40 MG TAB PO SCH (08:55)
[2022-09-17] MEDS ORDERED: LOSARTAN POTASSIUM 25 MG TAB PO SCH (09:00)
[2022-09-17] MEDS ORDERED: METOPROLOL SUCC 25MG EXT REL TAB PO SCH (09:00)
[2022-09-17] MEDS ORDERED: ENOXAPARIN INJ 40 MG/0.4 ML SYR SQ SCH (09:00)
--- NOTE | 2022-09-17 09:26 | Cardiology Progress Note ---
Date of Service September 17, 2022 Assessment & Plan (1) Pulmonary edema: (2) Hypertension: (3) Hyponatremia: (4) Takotsubo cardiomyopathy: Plan -Patient admitted for worsening SOB/flash pulmonary edema. -She had elevation in her HS troponin, peaking at 1484, and then trending down. -Echo revealed interval decline in LV function with apical ballooning, consistent with stress induced cardiomyopathy. -EKG with chronic LBBB and worsening T wave inversions in the precordial leads, also consistent with stress induced cardiomyopathy. She had similar admission in May 2021 and underwent cardiac cath during that admission with mild non obstructive disease. Na 126 on admission--> 130 on 09/16--> 132 09/17. Furosemide 40 mg IV q12 09/16 changed to 20 mg IV Q 12 today. Limited echo repeated 09/17 with improvement in the LVEF from 35-39% to 50% with improvement / resolution of apical wall motion abnormality. Ongoing abnormal septal motion consistent with LBBB. Change carvedilol to metoprolol succinate 25 mg daily (was on tartrate prior to hospitalization). Resume losartan at 25 mg (was on 50 mg [employer]IM[employer]RAF[employer]) Anticipate Furosemide 20 mg daily for BP and volume at discharge. Patient to go for CXR in radiology this am. If findings improved, will remove Momin. Reassess for possible discharge later today if nephrology in agreement. Admission and Anticipated Discharge Date Admission Date: September 13, 2022 Subjective Patient seen in cardiology follow up of her chief complaint of shortness of breath. Language line interpretation service utilized. Pt is comfortable. State she has no SOB. 3.4 L of urine output noted in last 24 hrs, net negative 2.7 liters in 24 hours. Review of Systems Review of Systems: All systems reviewed & are unremarkable except as noted in HPI & below Physical Exam Constitutional: + ill appearing; no acute distress Respiratory: no labored breathing and no cough Auscultation: lungs clear to auscultation bilaterally; no crackles and no rales Gastrointestinal (Abdomen): normal bowel sounds, soft, nontender, no hepatosplenomegaly Neurologic: PERRL, EOMI, accommodation nl, no face palsy, no dysarthria Results & Data ([facility]) Vital Signs (Past 12 Hours) Vital Signs Temp Pulse Pulse Resp BP Pulse Ox O2 Del Method 09/17/22 07:57 36.4 C L 90 20 114/73 92 Room Air 09/17/22 03:05 36.9 C 92 H 18 115/74 93 Room Air 09/16/22 23:36 36.9 C 80 18 102/65 95 Room Air 09/16/22 22:18 78 Laboratory Results Cardiac Enzymes 09/17/22 Range/Units 06:00 AST 20 (13-39) U/L CBC 09/16/22 09/17/22 Range/Units 10:21 06:00 WBC 12.02 H 11.65 H (4.8-10.8) K/ul RBC 4.65 4.73 (3.93-5.22) M/uL Hgb 11.4 L 11.6 L (12.0-16.0) g/dl Hct 34.9 36.1 (34.1-44.9) % Plt Count 373 384 (130-400) K/uL Neut # (Auto) 7.87 H (1.4-6.5) K/uL Lymph # (Auto) 2.65 (1.2-3.4) K/uL Orange # (Auto) 1.14 H (0.24-0.82) K/uL Eos # (Auto) 0.21 (0-0.50) K/uL Baso # (Auto) 0.06 (0-0.2) K/uL Comprehensive Metabolic Panel 09/16/22 09/17/22 Range/Units 10:21 06:00 Sodium 130 L 132 L (136-145) mmol/L Potassium 4.0 4.1 (3.5-5.1) mmol/L Chloride 92 L 93 L (98-107) mmol/L Carbon Dioxide 30 29 (21-32) mmol/L BUN 10 14 (6-23) mg/dl Creatinine 0.57 L 0.61 (0.6-1.2) mg/dl Glucose 125 H 129 H (70-99(Fasting)) mg/dl Calcium 9.2 9.4 (8.5-10.1) mg/dl AST 20 (13-39) U/L ALT 17 (7-52) U/L Alkaline Phosphatase 98 (34-104) U/L Total Protein 7.4 (6.0-8.3) gm/dl Albumin 4.2 (3.4-5.0) gm/dl Intake and Output 09/16/22 09/17/22 09/17/22 22:59 06:59 14:59 Intake Total 480 / 624.3 Output Total 2200 / 3400 1200 / 3400 Balance -1720 / -2775.7 -1200 / -2775.7 Intake: Oral 480 / 480 Output: Urine Amount (Catheter) 2200 / 3400 1200 / 3400 Momin/Indwelling 2200 / 3400 1200 / 3400 Other: Weight 85.2 kg (1) Pulmonary edema Chronicity: acute Qualified Code(s): J81.0 - Acute pulmonary edema (2) Hypertension Hypertension type: unspecified Qualified Code(s): I10 - Essential (primary) hypertension
--- NOTE | 2022-09-17 09:58 | XRay Report ---
XR chest 2V PA/lateral CLINICAL HISTORY: follow up CHF vs pneumonia TECHNIQUE: 2 views of the chest were obtained. Comparison: Comparison is made to chest radiograph 09/14/2022 FINDINGS: No lines and tubes are seen. Cardiomegaly is noted. The lungs are clear. No evidence of pleural effus ion or pneumothorax. IMPRESSION: Interval resolution of previously noted airspace opacities. These likely represent resolved pulmonary edema. ACT 112: Negative or not required by law. Electronically signed by: Catracho Galicia M.D. 09/17/2022 9:56 AM
[2022-09-17] MEDS ORDERED: FUROSEMIDE INJ 20 MG/2 ML VIAL IV ONE (11:13)
[2022-09-17] MEDS ORDERED: POTASSIUM CHLORIDE 10 MEQ TABCR PO STA (11:14)
--- NOTE | 2022-09-17 11:17 | Communication Note ---
Date of Service: September 17, 2022 Chest x-ray radiology report, and image reviewed independently. With noted resolution of the pulmonary edema compared to the 2 previous x-rays this adm ission. Patient subjectively feels well. Lungs clear to auscultation on exam today as previously noted Received furosemide 20 mg IV on 09/16/2022 at 1522, and then at 3 am 09/17. Will proceed with furosemide 20 mg IV x 1 now, 09/17/22 at 11:16 am. Furosemide 20 mg PO daily starting 09/18. If feeling well after lunch, consider discharge.
--- NOTE | 2022-09-17 14:49 | Discharge Summary ---
Discharge Summary Date of Service September 17, 2022 Notes For Next Care Provider This patient suffered a stress-induced cardiomyopathy She is being given guideline directed medical therapy on discharge. Medication Changes From Visit Lasix 20 mg daily Losartan 25 mg daily. Admission HPI Per Admitting Provider HISTORY OF PRESENT ILLNESS: This is a 56-year-old female with past medical history significant for hypertension, hyperlipidemia, and diabetes. She was in the ER last year in May 2021 with flash pulmonary edema and shortness of breath requiring BiPAP, thought to be from uncontrolled hypertension as she stopped blood pressure medication for a few days because of the rash in her hands. EKG also showed left bundle-branch block. Echo showed EF of 50% to 55% with mild concentric LVH. She underwent cardiac catheterization, which showed nonobstructive CAD of the LAD, left main and circumflex and RCA, and medical management recommended. She is on aspirin, high-dose statin, metoprolol, losartan and as per the [id number] who is in the room, at this time she is taking her medication, she is not missing them, and today she was feeling dizzy and not feeling well, and the blood pressure was running high in 190s, so they brought her to the hospital. In the waiting room, she suddenly became short of breath, hypoxic, and they placed her on BiPAP and a dose of nebs and a dose of IV Lasix 60 mg were given and 2-inch nitroglycerin paste was placed. When I was seeing the patient, the patient was on BiPAP, she was tachycardic to 130s, systolic blood pressure still in 140s. She was complaining of a lot of back pain. Somewhat restless as the shortness of breath is again coming back. Denies any chest pain, no headache, no cough, no recent fever or chills. No runny nose, no sore throat. No nausea, no vomiting, no abdominal pain. Normal bowel and bladder movements. Otherwise, she is ambulating okay. No swelling in the legs. As per [id number], she is noncompliant with the salt intake .A dose of morphine was ordered for pain. Then the patient suddenly became more short of breath and also systolic blood pressure dropped into 70s. ER physician gave 250 mL bolus of fluid and also nitroglycerin paste was taken off and blood pressure improved. Momin was placed. Right now, she is resting comfortably, says breathing is better and heart rates are improved. Blood pressure is holding. Admission Exam Per Admitting Provider PHYSICAL EXAMINATION: GENERAL: The patient is of moderate build. Currently on BiPAP. VITAL SIGNS: Temperature 36, pulse 100, respiratory rate 20, blood pressure was like 85/60, oxygen 100% BiPAP. HEENT: Pupils equal, round and reactive to light. Oral mucosa moist. NECK: No JVD, no neck masses. CARDIOVASCULAR: S1 and S2 heard, tachycardia. No murmurs. RESPIRATORY SYSTEM: Normal AP diameter. No accessory muscle use. Bilateral crackles heard. No wheezing. ABDOMEN: Soft, bowel sounds present, nontender, no distention. CENTRAL NERVOUS SYSTEM: Alert and oriented, nonfocal. EXTREMITIES: Trace pedal edema, no erythema. Principal Dx & Hospital Course #1 = Principal Diagnosis (1) Acute respiratory failure with hypoxia: (2) Takotsubo cardiomyopathy: (3) Hypertensive emergency: (4) Non-ST elevation (NSTEMI) myocardial infarction: (5) Cardiomyopathy: (6) Acute pulmonary edema: (7) Hyponatremia: (8) DMII (diabetes mellitus, type 2): Plan The patient is a 56-year-old female who is Beth speaking who presented with anxiety at home followed by drinking lots of water who developed flash pulmonary edema and shortness of breath requiring BiPAP therapy when she was sitting in the waiting room to be admitted to the ER. Her blood pressure was uncontrolled. She was admitted to PCU and treatment was given for blood pressure with diuretic therapy given along with nitroglycerin paste for her acute respiratory failure. Cardiology was consulted for this and her elevated troponin. Echocard iogram studies revealed evidence of stress-induced cardiomyopathy with improvement in LV function over time with treatment. The patient reports having a lot of stress regarding her daughter and son-in-law with whom she lives. She was continued on diuretic therapy for several days and improved. Nephrology was consulted for hyponatremia management which was also improved prior to discharge on admission sodium was 126 and it fell to 121 coming up to 132 with treatment on day of discharge. She was discharged in stable condition on low-dose Lasix daily and guideline directed medical therapy including losartan 25 daily and Toprol-XL 25 daily. She will continue baby aspirin, atorvastatin 80 and metformin for underlying diabetes.) Care follow-up was recommended. Family was present at time of discharge and notes that she is mentating at baseline. She was ambulating without difficulty on day of discharge. Discharge Exam CONSTITUTIONAL: obese, vitals as above, generally well-appearing, NAD EYES: normal conjunctivae, no scleral icterus ENT: external ear and nose normal, MMM NECK: trachea midline RESPIRATORY: clear to auscultation throughout. no rales or wheezes, normal respiratory effort CARDIOVASCULAR: regular rate and rhythm, S1 and 2 heard without murmurs, gallops or rubs, no JVD, no peripheral edema CHEST: inspection of chest was normal GASTROINTESTINAL: soft, nontender, ND, no guarding MUSCULOSKELETAL: strength 5/5 throughout, head is normocephalic and atraumatic SKIN: warm and dry NEUROLOGIC: CN 2-12 grossly intact, no sensory deficit, normal cognition, normal speech, no tremor, no gross focal deficit. PSYCHIATRIC: alert cooperative and oriented to person, place and time. Euthymic mood, makes good eye contact, language grossly intact, recent and remote memory grossly intact. Updated Medication List Medication Instructions Recorded Confirmed Type metformin 500 mg tablet 1,000 mg PO BIDM 10/22/20 09/13/22 History aspirin 81 mg tablet,delayed 81 mg PO QAM 07/02/21 09/13/22 History release atorvastatin 80 mg tablet 80 mg PO HS 07/02/21 09/13/22 History omeprazole 40 mg capsule,delayed 40 mg PO AMHS 09/13/22 09/13/22 History release furosemide 20 mg tablet 20 mg PO QAM #30 tabs 09/17/22 Rx losartan 25 mg tablet 25 mg PO QAM #30 tabs 09/17/22 Rx metoprolol succinate 25 mg 25 mg PO QAM #30 tabs 09/17/22 Rx tablet,extended release 24 hr Hospital Stay Data Consultations 09/13/22 22:13 ED Decision to Admit Stat 09/14/22 04:13 Consult Nephrology Routine 09/14/22 08:00 Consult Cardiology Routine Diagnostic Imagining Performed 09/14/22 05:33 CT chest diagnostic wo con Urgent Pending Results Patient Have Any Pending Studies at Discharge: No Discharge Instructions Given to Patient (Per Discharging Provider) You were admitted for elevated blood pressure resulting in fluid collecting on your lungs. You were found to have a transient heart failure called Takotsubo cardiomyopathy. This condition is usually a result of stress. You are being treated with medications. Your repeat echocardiogram revealed that this heart failure had resolved and your heart is pumping normally. You were given medication to clear the fluid off your lungs and a chest x-ray on day of discharge revealed this was resolved. Please continue all medications as instructed on discharge list below. Please note there are multiple medication changes from your admission medication list. It is recommended that you follow-up with your primary care doctor within 1 week of discharge to ensure you are doing well after going home and also to check lab work and blood pressure/heart rate after medication changes. You are not being given a fluid restriction and should drink normally to stay hydrated. Please note that the furosemide is a diuretic and will cause you to urinate more. This may lead to dehydration. Please adhere to a low-salt diet trying to restrict sodium intake to 2000 mg daily. This will prevent you from holding onto water. If you find that you are gaining weight, swelling or have any progressive shortness of breath, please seek immediate medical attention. Please note heart failure instructions below. It was a pleasure taking care of you! Please call if you have any questions or problems. You can reach a [facility] hospitalist on duty at [facility] 24 hours a day by calling [phone]. Take care of yourself. Debbie Monzon, [facility] Hospitalist Total Time Total Time Spent Total Time Spent (In Minutes): 60
[2022-09-18] MEDS ORDERED: FUROSEMIDE 20 MG TAB PO SCH (09:00)
== END 2022-09-17 16:31 | disposition home or self-care (01) | DRG 280 ==
LOC: ED 20:14 → EDINP 23:14 → SUATTDRO 23:14 → 4W 09-14 01:08

== ENCOUNTER 2024-05-01 04:04 | Inpatient (IN) ==
[2024-05-01] MEDS: NITROGLYCERIN SL 0.4 MG/TAB TAB SL STA ×2 (04:23→04:46)
[2024-05-01 04:35] LABS: Base Excess VBG -5.2 mEq/L; HCO3 VBG 24 mmol/L; Oxygen Saturation VBG < 60.0 %; PCO2 VBG 61 mmHg (38-50); PO2 VBG 33 mmHg
[2024-05-01 04:37] LABS: iSTAT Creatinine 0.6 mg/dl (0.6-1.3); iSTAT Hemoglobin 16.3 g/dl (12.0-16.0); iSTAT Ionized Calcium 1.17 mmol/l (1.12-1.32); iSTAT Potassium 4.2 mmol/L (3.3-5.0)
--- NOTE | 2024-05-01 04:39 | Emergency Department Note ---
Impression & Plan Acute respiratory failure with hypoxia and hypercarbia, Chest pressure ED Provider Note Provider: Anton Barrios MD DATE OF SERVICE: 05/01/2024 CHIEF COMPLAINT: Shortness of breath HISTORY OF PRESENT ILLNESS: Patient is a 58-year-old female presenting here today with family history of hypertension and heart failure issues reporting onset around 11 PM of some difficulty breathing and slightly productive cough with some chest heaviness and pain in the left breast. Some vomiting reported. No sick contacts. No diarrhea. No trauma or syncope. Similar to episode 2 years ago when she was here and 1 other time before that. Has been compliant medications by family's report. Predominately speaks Beth but patient's son and [id number]-pet feel comfortable translating. Quite short of breath and not on home oxygen. Did just recently returned from [facility] and traveled. No fevers or sore throat reported. No leg swelling. PAST MEDICAL HISTORY: As noted above MEDICATIONS: Reviewed home medications SOCIAL HISTORY: Non-smoker PHYSICAL EXAM: GENERAL: alert and oriented in some respiratory distress Head: normocephalic and atraumatic EYES: No injection, discharge or icterus. EOMI. NECK: Trachea midline. ENT: Mucous membranes pink and moist. LUNGS: Airway patent. Tachypnea with some increased retractions. Breath sounds diffuse crackles HEART: Regular tachycardic rate and rhythm. No chest wall tenderness ABDOMEN: Soft and non-tender, without guarding or rebound. SKIN: Acyanotic, warm, dry, without rashes EXTREMITIES: Without swelling, tenderness or deformity NEUROLOGICAL: No focal deficits. No aphasia. No facial droop or slurred speech. Normal strength and tone in the extremities. Sensation to gross touch normal. EKG: Respiratory artifact in baseline. 157 beats minute left bundle branch block. QTc 468. No PVC appreciable. CONTINUOUS CARDIAC MONITORING: was ordered and showed a heart rate of 100s-150s bpm in sinus tachycardia 1 view chest x-ray per my interpretation: No pneumothorax or significant pleural effusions with diffuse prickly bilateral lower lung pulmonary edema appreciable Patient's laboratory studies and imaging reviewed. Differential includes Reactive airway disease, pneumonia, pneumothorax, COPD, CHF, infections, cardiac ischemia, pulmonary embolism, musculoskeletal, gastrointestinal, as well as other pathologies. IMPRESSION/MEDICAL DECISION MAKING: Patient with some chest heaviness and significant respiratory difficulty. Hypoxic here on room air and even on a nonrebreather. Transition to BiPAP. Significantly hypertensive. Given several doses of sublingual nitroglycerin for this. VBG with acidosis and hypercarbia. No smoking history. X-ray appears to show some fluid overload/pulmonary edema. Significantly tachycardic but appears to be sinus. Chest pressure questionably related to demand ischemia and fluid overload rather than occlusive coronary artery disease. Benign abdomen on exam. Doubt acute intra-abdominal pathology or obstruction. No significant leg swelling noted. Did review prior medical record from 2 years ago when she had similar symptoms. Blood work returns without anemia but leukocytosis of 17.8. Could be reactive but given the parenchymal findings on the CT/chest x-ray that I believe likely her fluid will cover with antibiotics given the seriousness of her hypoxia and BiPAP need. Do not see on my review obvious PE or pneumonia. Blood work with some hyponatremia but stable renal function. Mildly low magnesium. Some IV supplementation ordered. BNP only 61. Initial troponin 44 although I question given her significant tachycardia hypertensive at this level or rise on repeat. Blood pressure has improved nicely after some nitroglycerin and labetalol. Will bring in for further care but is improving on the BiPAP and much more comfortable now. Blood pressure rapidly corrected. Hospitalist contacted. Patient and family were updated. Negative respiratory viral panel. DIAGNOSIS: Acute hypoxic and hypercapnic respiratory failure, flash pulmonary edema/hypertensive emergency DISPOSITION: Hospitalist will evaluate Patient was agreeable with this plan. Critical Care I have personally spent 38 minutes of critical care time in the direct management of this patient. This includes bedside care, interpretation of diagnostic studies, and testing, discussion with consultants, patient, and family members, and other required patient management activities. These 38 minutes is in excess of all separately billable procedures. Past Med/Surg History Problem List (Updated 05/01/24 @ 04:49 by Anton Barrios M.D.) Chest pressure (Acute) Acute respiratory failure with hypoxia and hypercarbia (Acute) DMII (diabetes mellitus, type 2) Cardiomyopathy Acute systolic (congestive) heart failure Community acquired pneumonia Acute on chronic diastolic (congestive) heart failure Acute respiratory failure with hypoxia Acute respiratory distress (Acute) Hypertension (Acute) Pulmonary edema (Acute) Hypoxia (Acute) Tachycardia (Acute) Hyponatremia (Acute) Hypomagnesemia (Acute) Atypical chest pain Coronary artery disease (Acute) Non-ST elevation (NSTEMI) myocardial infarction Chest pain (Acute) Diastolic CHF with preserved left ventricular function, NYHA class 2 Hypertension (Acute) GERD (gastroesophageal reflux disease) (Acute) LBBB (left bundle branch block) (Acute) Hyperlipemia Hypertensive emergency (Acute) Elevated troponin I level (Acute) Acute on chronic heart failure with preserved ejection fraction (HFpEF) Respiratory failure (Acute) Acute pulmonary edema (Acute) Diabetes Medical History Coronary artery disease Hyperlipemia Hypertension Hypertensive emergency LBBB (left bundle branch block) Non-ST elevation (NSTEMI) myocardial infarction Social History Smoking Status: Never smoker Hx Alcohol Use: No Hx Substance Use: No Preferred Language: Beth Communication Ability: Effective Communication Tools: IPad and Language Line Sander Wooden Pencils Sander Wooden Pencils Required: Yes Beliefs That Will Affect Care: Mormonism Mormonism Beliefs: Jehovah'S Witness marital status: Current Living Situation: Spouse and Family Current Living Situation Comment: daughter, SCHUYLER, , grandchildren current occupational status: unemployed Feels Safe at Home: Yes Assistive Devices: None Allergies Allergies Allergy/AdvReac Type Severity Reaction Status Date / Time No Known Allergies Allergy Verified 09/13/22 22:22 Home Meds Home Medications Medication Instructions Recorded Confirmed metformin 500 mg tablet 1,000 mg PO BIDM 10/22/20 09/13/22 aspirin 81 mg tablet,delayed 81 mg PO QAM 07/02/21 09/13/22 release atorvastatin 80 mg tablet 80 mg PO HS 07/02/21 09/13/22 omeprazole 40 mg capsule,delayed 40 mg PO AMHS 09/13/22 09/13/22 release Previous Rx's Medication Instructions Recorded furosemide 20 mg tablet 20 mg PO QAM #30 tabs 09/17/22 losartan 25 mg tablet 25 mg PO QAM #30 tabs 09/17/22 metoprolol succinate 25 mg 25 mg PO QAM #30 tabs 09/17/22 tablet,extended release 24 hr Results & Data (ED) Vital Signs Vital Signs - 24 hr 05/01/24 04:06 05/01/24 04:20 05/01/24 04:22 Temperature 36.5 C Temperature Source Temporal Artery Scan Pulse Rate 149 H 139 H Pulse Rate from SpO2 Sensor Respiratory Rate 39 H 33 H Respiratory Effort / Characteristics Labored Spontaneous Accessory Muscle Use Respiratory Depth Respiratory Pattern Tachypnea Blood Pressure 189/151 H 192/164 H Blood Pressure Mean 163 175 Pulse Oximetry 80 L 99 Oxygen Delivery Method Room Air Fraction of Inspired Oxygen 70 Sepsis Recent Fever Within 48 Hours No Sepsis New/Unexplained Change in Mental Status No Sepsis Action Taken by Nursing Physician Notified Pulse Oximetry Post Tiitration 05/01/24 04:22 05/01/24 04:22 05/01/24 04:24 Temperature Temperature Source Pulse Rate 153 H Pulse Rate from SpO2 Sensor 152 H Respiratory Rate 39 H Respiratory Effort / Characteristics Respiratory Depth Respiratory Pattern Blood Pressure 192/164 H 192/164 H Blood Pressure Mean 175 175 Pulse Oximetry 85 L Oxygen Delivery Method Fraction of Inspired Oxygen Sepsis Recent Fever Within 48 Hours Sepsis New/Unexplained Change in Mental Status Sepsis Action Taken by Nursing Pulse Oximetry Post Tiitration 05/01/24 04:27 05/01/24 04:29 05/01/24 04:30 Temperature Temperature Source Pulse Rate 153 H 152 H Pulse Rate from SpO2 Sensor Respiratory Rate 34 H Respiratory Effort / Characteristics Accessory Muscle Use Labored Short of Breath SOB on Exertion Tripoding Respiratory Depth Shallow Respiratory Pattern Rapid/Shallow Tachypnea Blood Pressure Blood Pressure Mean Pulse Oximetry 75 L Oxygen Delivery Method Room Air Room Air Fraction of Inspired Oxygen Sepsis Recent Fever Within 48 Hours Sepsis New/Unexplained Change in Mental Status Sepsis Action Taken by Nursing Pulse Oximetry Post Tiitration 05/01/24 04:31 05/01/24 04:49 05/01/24 04:55 Temperature Temperature Source Pulse Rate Pulse Rate from SpO2 Sensor Respiratory Rate Respiratory Effort / Characteristics Respiratory Depth Respiratory Pattern Blood Pressure 165/121 H 153/118 H 150/119 H Blood Pressure Mean 144 130 128 Pulse Oximetry Oxygen Delivery Method Fraction of Inspired Oxygen Sepsis Recent Fever Within 48 Hours Sepsis New/Unexplained Change in Mental Status Sepsis Action Taken by Nursing Pulse Oximetry Post Tiitration 05/01/24 04:55 05/01/24 04:56 05/01/24 04:57 Temperature Temperature Source Pulse Rate 137 H 138 H Pulse Rate from SpO2 Sensor 139 H Respiratory Rate 29 H Respiratory Effort / Characteristics Respiratory Depth Respiratory Pattern Blood Pressure 150/119 H 150/119 H 108/84 Blood Pressure Mean 128 92 Pulse Oximetry 96 Oxygen Delivery Method Fraction of Inspired Oxygen Sepsis Recent Fever Within 48 Hours Sepsis New/Unexplained Change in Mental Status Sepsis Action Taken by Nursing Pulse Oximetry Post Tiitration 05/01/24 04:59 05/01/24 05:03 05/01/24 05:08 Temperature Temperature Source Pulse Rate 108 H Pulse Rate from SpO2 Sensor 107 H Respiratory Rate 31 H Respiratory Effort / Characteristics Respiratory Depth Respiratory Pattern Blood Pressure 108/84 Blood Pressure Mean 88 Pulse Oximetry 94 Oxygen Delivery Method BiPAP Fraction of Inspired Oxygen Sepsis Recent Fever Within 48 Hours Sepsis New/Unexplained Change in Mental Status Sepsis Action Taken by Nursing Pulse Oximetry Post Tiitration 96 05/01/24 05:10 05/01/24 05:21 05/01/24 05:24 Temperature Temperature Source Pulse Rate 116 H Pulse Rate from SpO2 Sensor Respiratory Rate Respiratory Effort / Characteristics Respiratory Depth Respiratory Pattern Blood Pressure 118/82 120/91 120/91 Blood Pressure Mean 99 95 Pulse Oximetry Oxygen Delivery Method Fraction of Inspired Oxygen Sepsis Recent Fever Within 48 Hours Sepsis New/Unexplained Change in Mental Status Sepsis Action Taken by Nursing Pulse Oximetry Post Tiitration 05/01/24 06:00 05/01/24 06:00 05/01/24 06:04 Temperature Temperature Source Pulse Rate 116 H Pulse Rate from SpO2 Sensor Respiratory Rate 29 H Respiratory Effort / Characteristics Respiratory Depth Respiratory Pattern Blood Pressure 118/94 118/94 Blood Pressure Mean 99 99 Pulse Oximetry 99 Oxygen Delivery Method BiPAP Fraction of Inspired Oxygen Sepsis Recent Fever Within 48 Hours Sepsis New/Unexplained Change in Mental Status Sepsis Action Taken by Nursing Pulse Oximetry Post Tiitration Laboratory Data 05/01/24 04:22 05/01/24 04:22 Lab Results 05/01/24 05/01/24 05/01/24 Range/Units 04:22 04:24 04:26 WBC 17.83 H (4.8-10.8) K/ul RBC 5.75 H (4.20-5.40) M/uL Hgb 14.1 (12.0-16.0) g/dl POC Hgb 16.3 H (12.0-16.0) g/dl Hct 45.4 (37.0-47.0) % POC Hct 48 H (37-47) % MCV 79.0 L (80.0-100.0) fL MCH 24.5 L (25.0-34.0) pg MCHC 31.1 L (32.0-36.0) g/dL RDW Std Deviation 56.7 H (36.4-46.3) fL RDW Coeff of [place] 20.6 H (11.5-14.5) % Plt Count 469 H (130-400) K/uL MPV 9.8 (9.4-12.4) fL Immature Gran % (Auto) 0.8 % Neut % (Auto) 53.3 % Lymph % (Auto) 37.0 % [place] % (Auto) 7.4 % Eos % (Auto) 1.1 % Baso % (Auto) 0.4 % Neut # (Auto) 9.51 H (1.40-6.50) K/uL Lymph # (Auto) 6.59 H (1.20-3.40) K/uL [place] # (Auto) 1.32 H (0.11-0.59) K/uL Eos # (Auto) 0.19 (0.00-0.50) K/uL Baso # (Auto) 0.08 (0.00-0.20) K/uL Immature Gran # (Auto) 0.14 (0.01-0.20) K/uL RBC Morphology Unremarkable PT 9.8 (9.0-12.0) Seconds INR 0.9 (0.9-1.1) APTT 27 (21-31) Seconds PTT Ratio 1.0 VBG pH 7.20 L (7.36-7.41) VBG pCO2 61 H (38-50) mmHg VBG pO2 33 mmHg VBG HCO3 24 mmol/L VBG O2 Saturation < 60.0 % VBG Base Excess -5.2 mEq/L POC Sodium 131 L (135-144) mmol/L Sodium 128 L (136-145) mmol/L POC Potassium 4.2 (3.3-5.0) mmol/L Potassium TNP POC Chloride 96 L (101-112) mmol/L Chloride 94 L (98-107) mmol/L Carbon Dioxide 22 (21-32) mmol/L POC Total CO2 24 (24-31) mmol/L Anion Gap 12 H (3-11) POC Anion Gap 16.0 (16-25) mmol/L POC BUN 14 (7-18) mg/dl BUN 13 (6-23) mg/dl Creatinine 0.62 (0.6-1.2) mg/dl POC Creatinine 0.6 (0.6-1.3) mg/dl Est Cr Clr Drug Dosing 96.9 ml/min Est GFR ( Amer) 114.4 ml/min Est GFR (Non-Af Amer) 98.7 ml/min BUN/Creatinine Ratio 21.0 H (10-20) Glucose 173 H (70-99(Fasting)) mg/dl POC Glucose (other) 173 H (70-99) mg/dl Calcium 9.6 (8.6-10.3) mg/dl POC Ioniz Calcium Corey 1.17 (1.12-1.32) mmol/l Magnesium 1.6 L (1.7-2.4) mg/dl Total Bilirubin 0.3 (0.2-1.0) mg/dl AST TNP ALT 23 (7-52) U/L Alkaline Phosphatase 122 H (34-104) U/L Troponin I High Sens 44.8 H (0-14) pg/ml B-Natriuretic Peptide 61 (0-100) pg/ml Total Protein 8.3 (6.0-8.3) gm/dl Albumin 4.9 (3.4-5.0) gm/dl Globulin 3.4 (2.5-4.0) gm/dl Albumin/Globulin Ratio 1.4 (0.9-2) Adenovirus (PCR) Not Detected (NotDetected) B. pertussis DNA (PCR) Not Detected (NotDetected) B.parapertussis DNA PCR Not Detected (NotDetected) C. pneumoniae DNA (PCR) Not Detected (NotDetected) Coronavirus OC43 (PCR) Not Detected (NotDetected) Coronavirus HKU1 (PCR) Not Detected (NotDetected) Coronavirus 229E (PCR) Not Detected (NotDetected) SARS-CoV-2 (PCR) Not Detected (NotDetected) Coronavirus NL63 (PCR) Not Detected (NotDetected) Human Metapneumovir PCR Not Detected (NotDetected) Influenza Type A (PCR) Not Detected (NotDetected) Influenza Type B (PCR) Not Detected (NotDetected) M. pneumoniae (PCR) Not Detected (NotDetected) Parainfluenza 1 (PCR) Not Detected (NotDetected) Parainfluenza 2 (PCR) Not Detected (NotDetected) Parainfluenza 3 (PCR) Not Detected (NotDetected) Parainfluenza 4 (PCR) Not Detected (NotDetected) RSV (PCR) Not Detected (NotDetected) Entero/Rhino (PCR) Not Detected (NotDetected) Administered Medications Magnesium Sulfate/Dextrose (Magnesium Sulfate / D5w) 1 gm in 100 mls @ 100 mls/hr IV NOW STA Stop: 05/01/24 06:16 Last Admin: 05/01/24 05:27 Dose: 100 mls/hr Documented By: DRE Discontinued Medications Cefepime HCl (Maxipime) 2,000 mg in 20 mls @ 5 mls/min IV NOW STA; Protocol Stop: 05/01/24 04:49 Last Admin: 05/01/24 04:56 Dose: 5 mls/min Documented By: DRE Ioversol (Optiray 320 125ml) 125 ml IV ONCE ONE Stop: 05/01/24 04:51 Last Admin: 05/01/24 04:51 Dose: 118 ml Documented By: KAREEM Labetalol HCl (Labetalol Hcl Iv 5 Mg/Ml 20ml) 10 mg IV NOW STA Stop: 05/01/24 04:52 Last Admin: 05/01/24 04:56 Dose: 10 mg Documented By: DRE Nitroglycerin (Nitroglycerin Sl 0.4 Mg/Tab Tab) 0.4 mg SL NOW STA Stop: 05/01/24 04:22 Last Admin: 05/01/24 04:23 Dose: 0.4 mg Documented By: DRE Nitroglycerin (Nitroglycerin Sl 0.4 Mg/Tab Tab) 0.4 mg SL NOW STA Stop: 05/01/24 04:33 Last Admin: 05/01/24 04:46 Dose: 0.4 mg Documented By: DRE Imaging Data Radiologist's Impression: Chest CTA 05/01/24 04:20 Exam(s): CTA CHEST IV Amt: 118 ML OPTIRAY 320 EXAM: CT Angiography Chest With Intravenous Contrast CLINICAL HISTORY: Dyspnea, hypoxic, travel. TECHNIQUE: Axial computed tomographic angiography images of the chest with intravenous contrast. CTDI is 25.53 mGy and DLP is 801.99 mGy-cm. Automated exposure control was utilized for the study. A dose lowering technique was utilized adhering to the principles of ALARA. 3D and MIP reconstructed images were created and reviewed. COMPARISON: Chest x-ray 05-01-2024, CT chest 09/14/2022 and 07/29/2021 FINDINGS: Pulmonary arteries: No pulmonary embolism. Aorta: No thoracic aortic aneurysm or dissection. Lungs: Diffuse bilateral patchy infiltrates, most severe in the bilateral lower lobes and right upper lobe. Pleural space: No pleural effusion. No pneumothorax. Heart: Mild cardiomegaly. No pericardial effusion. No evidence of RV dysfunction. Coronary artery atherosclerotic calcifications. Bones/joints: No acute fracture. Degenerative changes of the spine. Soft tissues: Unremarkable. Lymph nodes: Unremarkable. No enlarged lymph nodes. IMPRESSION: No pulmonary embolism. Multifocal bilateral pneumonias. Electronically signed by: Ar Davidson M.D. 05/01/24 05:53 AM Discharge Plan Visit Data Chief Complaint: Respiratory Problems Stated Complaint: TROUBLE BREATHING,ABDOMINAL PAIN LEFT SIDE ED Provider: Anton Barrios Discharge Problem: Acute respiratory failure with hypoxia and hypercarbia, Chest pressure Patient Disposition: Being Evaluated by Hospitalist Forms Stand Alone Forms: [facility] Prescriptions Prescriptions: No Action metformin 500 mg tablet 1,000 mg PO BIDM atorvastatin 80 mg Tablet 80 mg PO HS aspirin 81 mg tablet,delayed release (DR/EC) 81 mg PO QAM omeprazole 40 mg capsule,delayed release(DR/EC) 40 mg PO AMHS losartan 25 mg Tablet 25 mg PO QAM Qty: 30 0RF metoprolol succinate 25 mg Tablet Extended Release 24 Hr 25 mg PO QAM Qty: 30 0RF furosemide 20 mg Tablet 20 mg PO QAM Qty: 30 0RF Referrals Referrals: Maritza Lyles MD [Primary Care Provider] -
[2024-05-01 04:40] LABS: Hematocrit (blood only) 45.4 % (37.0-47.0); Hemoglobin 14.1 g/dl (12.0-16.0); Mean Corpuscular Hemoglobin 24.5 pg (25.0-34.0); Mean Corpuscular Hgb Conc 31.1 g/dL (32.0-36.0); Mean Platelet Volume 9.8 fL (9.4-12.4); Platelet Count 469 K/uL (130-400); RDW Coefficient of Variation 20.6 % (11.5-14.5); RDW Standard Deviation 56.7 fL (36.4-46.3); Red Blood Count 5.75 M/uL (4.20-5.40); White Blood Count 17.83 K/ul (4.8-10.8)
[2024-05-01] MEDS: OPTIRAY 320 125ml IV ONE (04:51)
[2024-05-01] MEDS: CEFEPIME 2,000 MG/20 ML VIAL IV STA (04:56)
[2024-05-01] MEDS: LABETALOL HCL IV 5 MG/ML 20ML IV STA (04:56)
[2024-05-01 05:03] LABS: Alanine Aminotransferase 23 U/L (7-52); Albumin Globulin Ratio 1.4 (0.9-2); Albumin Level 4.9 gm/dl (3.4-5.0); Alkaline Phosphatase 122 U/L (34-104); Anion Gap 12 (3-11); Bilirubin,Total 0.3 mg/dl (0.2-1.0); Blood Urea Nitrogen 13 mg/dl (6-23); Calcium 9.6 mg/dl (8.6-10.3); Carbon Dioxide 22 mmol/L (21-32); Chloride 94 mmol/L (98-107); Creatinine Clr Calc Pharmacy 96.9 ml/min; Est GFR (African American) 114.4 ml/min; Est GFR (Non-African American) 98.7 ml/min; Globulin 3.4 gm/dl (2.5-4.0); Glucose 173 mg/dl (70-99(Fasting)); Magnesium 1.6 mg/dl (1.7-2.4); Sodium 128 mmol/L (136-145); Total Protein 8.3 gm/dl (6.0-8.3)
[2024-05-01 05:04] LABS: INR 0.9 (0.9-1.1); Partial Thromboplastin Time 27 Seconds (21-31); Prothrombin Time 9.8 Seconds (9.0-12.0)
[2024-05-01 05:07] LABS: Basophils # (auto) 0.08 K/uL (0.00-0.20); Basophils % (auto) 0.4 %; Eosinophils # (auto) 0.19 K/uL (0.00-0.50); Eosinophils % (auto) 1.1 %; Immature Granulocytes # (auto) 0.14 K/uL (0.01-0.20); Immature Granulocytes % (auto) 0.8 %; Lymphocytes # (auto) 6.59 K/uL (1.20-3.40); Monocytes # (auto) 1.32 K/uL (0.11-0.59); Monocytes % (auto) 7.4 %; Neutrophils # (auto) 9.51 K/uL (1.40-6.50); Neutrophils % (auto) 53.3 %; RBC Morphology Unremarkable
[2024-05-01 05:24] LABS: Troponin I High Sensitivity 44.8 pg/ml (0-14)
[2024-05-01 05:25] LABS: Adenovirus PCR Not Detected (NotDetected); Bordetella parapertussis PCR Not Detected (NotDetected); Bordetella pertussis PCR Not Detected (NotDetected); Chlamydia pneumoniae PCR Not Detected (NotDetected); Coronavirus 229E PCR Not Detected (NotDetected); Coronavirus CoV-2 (COVID19)PCR Not Detected (NotDetected); Coronavirus HKU1 PCR Not Detected (NotDetected); Coronavirus NL63 PCR Not Detected (NotDetected); Coronavirus OC43PCR Not Detected (NotDetected); Human Metapneumovirus PCR Not Detected (NotDetected); Influenza A PCR Not Detected (NotDetected); Influenza B PCR Not Detected (NotDetected); Mycoplasma pneumoniae PCR Not Detected (NotDetected); Parainfluenza Virus 1 PCR Not Detected (NotDetected); Parainfluenza Virus 2 PCR Not Detected (NotDetected); Parainfluenza Virus 3 PCR Not Detected (NotDetected); Parainfluenza Virus 4 PCR Not Detected (NotDetected); Respiratory Syncytial VirusPCR Not Detected (NotDetected); Rhinovirus/Enterovirus PCR Not Detected (NotDetected)
[2024-05-01] MEDS: MAGNESIUM SULFATE / D5W 1 GM/100 ML BAG IV STA (05:27)
--- NOTE | 2024-05-01 05:54 | CT Scan Report ---
Exam(s): CTA CHEST IV Amt: 118 ML OPTIRAY 320 EXAM: CT Angiography Chest With Intravenous Contrast CLINICAL HISTORY: Dyspnea, hypoxic, travel. TECHNIQUE: Axial computed tomographic angiography images of the chest with intravenous contrast. CTDI is 25.53 mGy and DLP is 801.99 mGy-cm. Automated exposure control was utilized for the study. A dose lowering technique was utilized adhering to the principles of ALARA. 3D and MIP reconstructed images were created and reviewed. COMPARISON: Chest x-ray 05-01-2024, CT chest 09/14/2022 and 07/29/2021 FINDINGS: Pulmonary arteries: No pulmonary embolism. Aorta: No thoracic aortic aneurysm or dissection. Lungs: Diffuse bilateral patchy infiltrates, most severe in the bilateral lower lobes and right upper lobe. Pleural space: No pleural effusion. No pneumothorax. Heart: Mild cardiomegaly. No pericardial effusion. No evidence of RV dysfunction. Coronary artery atherosclerotic calcifications. Bones/joints: No acute fracture. Degenerative changes of the spine. Soft tissues: Unremarkable. Lymph nodes: Unremarkable. No enlarged lymph nodes. IMPRESSION: No pulmonary embolism. Multifocal bilateral pneumonias. Electronically signed by: Ar Davidson M.D. 05/01/24 05:53 AM
[2024-05-01 06:06] LABS: Appearance Urine Clear (Clear); Bacteria Urine Automated None Seen (None Seen); Bilirubin Urine Negative (Negative); Blood Urine Negative (Negative); Color Urine Yellow; Epithelial Cell Urine Auto 0-2 /hpf (0-2); Glucose Urine UA Negative (Negative); Ketones Urine Negative (Negative); Leukocyte Esterase Urine Negative (Negative); Nitrite Urine Negative (Negative); Protein Urine 2+ (Negative); Specific Gravity Urine 1.035 (1.000-1.030); Urobilinogen Urine Negative (Negative)
[2024-05-01 06:31] LABS: Cast Urine Automated 0-2 /lpf (0-2); RBC Urine Automated 0-2 /hpf (0-2); WBC Urine Automated 0-5 /hpf (0-5)
--- NOTE | 2024-05-01 06:52 | XRay Report ---
XR chest 1V portable HISTORY: 58 years-old Female Dyspnea acute shortness of breath COMPARISON: CTA chest of same day TECHNIQUE: AP view of the chest FINDINGS: Cardiac silhouette is upper limits of normal in size. There is no pneumothorax. Trace pleural effusio ns. Pulmonary vascular congestion with mid to lower lung zone predominant multifocal airspace opaciti es. Reticular interstitial densities also noted. Bones appear grossly intact. IMPRESSION: 1. Mixed interstitial and alveolar opacities with consolidation most pronounced in the right mid lung and right lung base. Findings may represent pulmonary edema versus multifocal pneumonia. 2. Trace pleural effusions. ACT 112: Negative or not required by law. The above report was generated using voice recognition software. It may contain grammatical, syntax o r spelling errors. Electronically signed by: Jose Banks M.D. 05/01/2024 6:49 AM
[2024-05-01 07:34] LABS: Potassium 4.4 mmol/L (3.5-5.1)
--- OUTSIDE RECORDS SUMMARY | 2024-05-01 07:34 | External Medical Summary | Summary of Care ---
Author Name Unknown Organization [facility] Address [address] [facility] [address] Phone [phone] Care Team Providers Care Chief Crna Name Role Phone Maritza Lyles MD Primary Care Provider + Reason for Visit * Reason Comments IV Therapy Infed Infusion Encounter Details Date Type Department Care Team (Latest Contact Info) Description 04/13/2024 1:00 PM EDT Hem/Onc Treatment Hematology/Oncology Treatment, [address] [place] [address] Jeanie, Chair 2 Hem Onc [address] [address] Iron deficiency anemia due to chronic blood loss* Allergies No known active allergiesdocumented as of this encounter (statuses as of 04/17/2024) Medications Medication Sig Dispensed Refills Start Date End Date Status Aspirin 81 MG Oral Capsule at bedtime. 05/23/2021 Active metFORMIN HCl 500 MG Oral Tablet (Glucophage)Indica tions:Type 2 diabetes mellitus with hemoglobin A1c goal of less than 7.0% ([facility]) Take 2 Tablets by mouth 2 times a day with morning and evening meals. 360 Tablet 3 11/16/2022 Active Omeprazole 40 MG Oral Capsule Delayed Release (PriLOSEC)Indicati ons:Gastroesophage al reflux disease without esophagitis TAKE 1 CAPSULE BY MOUTH IN THE MORNING AND BEFORE BEDTIME 180 Capsule 1 11/28/2023 Active Losartan Potassium 50 MG Oral Tablet (Cozaar)Indication s:HTN, goal below 130/80 TAKE 1 TABLET BY MOUTH EVERY DAY IN THE MORNING 90 Tablet 1 11/28/2023 Active Metoprolol Succinate ER 25 MG Oral Tablet Extended Release 24 Hour (toPROL XL) Take 1 Tablet by mouth in the morning. 90 Tablet 3 01/11/2024 Active Atorvastatin Calcium 80 MG Oral Tablet (Lipitor)Indicatio ns:Type 2 diabetes mellitus with hemoglobin A1c goal of less than 7.0% (HCC) TAKE 1 TABLET BY MOUTH EVERY DAY IN THE MORNING 90 Tablet 3 02/09/2024 Active Additional Information Patient taking differently: 80 mg Oral HS, Reported on 02/15/2024 Furosemide 20 MG Oral Tablet (Lasix) TAKE 1 TABLET BY MOUTH EVERY DAY IN THE MORNING 90 Tablet 3 03/12/2024 Active prednisoLONE Acetate 1 % Ophthalmic Suspension (Pred Forte) Instill 1 Drop into the left eye in the morning and 1 Drop before bedtime. 10 mL 03/15/2024 Active documented as of this encounter (statuses as of 04/17/2024) Active Problems Problem Noted Date Diagnosed Date Iron deficiency anemia due to chronic blood loss 04/03/2024 Iron deficiency anemia 02/16/2024 Combined forms of age-related cataract of both e yes 01/05/2024 Stress-induced cardiomyopathy 05/10/2023 Type 2 diabetes mellitus wit h hemoglobin A1c goal of less than 7.0% 11/02/2021 Hyperlipidemia with target LDL less than 100 HTN, goal below 130/80 11/02/2021 Gastroesophageal reflux disease without esophagi tis 11/02/2021 NEELAM (generalized anxiety disorder) 08/20/2021 documented as of this encounter (statuses as of 04/17/2024) Immunizations Name Administration Dates Next Due Hepatitis B, 20+ yrs 11/16/2023,12/23/2022 Pneumococcal Conjugate Vacci ne, 20-valent ([id number]) 12/23/2022 Pneumococcal Polysaccharide PPV23 (Pneumovax) Seasonal Influenza, PF, 6 M & above, IM , (FluLaval or Fluzone) 08/24/2023,09/24/2022 TDAP (age 10 and older)(Boostrix) 05/04/2022 Zoster Vaccine Recombinant (Shingrix) 05/04/2022 ,11/03/2021 01/01/2022 documented as of this encounter Social History Tobacco Use Types Packs/Day Years Used Date Smoking Tobacco: Never Smokeless Tobacco: Never Alcohol Use Standard Drinks/Week Comments Never 0 (1 standard drink = 0.6 oz pur e alcohol) Utilities Answer Date Recorded Do you have trouble paying y our heating, water, or electric bill? (Adult - for ages 18 years and over) Not on file 03/06/2024 Is your family able to pay t he heat, water, or electric bill? (Household - for ages 0-17 years) Not on file 03/06/2024 Does your family have access to good internet? (Household - for ages 0-17 years) Not on file 03/06/2024 Social Connections Answer Date Recorded How often do you feel lonely or isolated from those around you? (Adult - for ages 18 years and over) Not on file 03/06/2024 Sex and Gender Information Value Date Recorded Sex Assigned at Not on file Gender Identity Not on file Sexual Orientation Not on file Job Start Date Occupation Industry Not on file Not on file Not on file documented as of this encounter Last Filed Vital Signs Vital Sign Reading Time Taken Comments Blood Pressure 145/87 04/13/2024 3:00 PM EDT Pulse 75 04/13/2024 3:00 PM EDT Temperature 36.6 C (97.9 F) 04/13/2024 3:00 PM ED T Respiratory Rate 16 04/13/2024 3:00 PM EDT Oxygen Saturation 94% 04/13/2024 3:00 PM EDT Inhaled Oxygen Concentration - - Weight - - Height - - Body Mass Index - - documented in this encounter Nursing Notes * Christine Salgado RN - 04/13/2024 3:55 PM EDT Patient ambulatory to chair 5, son with patient. Patient speaks Beth, language line used for communication ([id number]). Patient denies any nausea, vomiting, diarrhea, fever or pain Safety and Risk for Injury Patient will remain free from injury. Ensure appropriate safety devices are available. Provide and maintain safe environment. Patient instructed on use of heat and massage functions where applicable. Patient shown how to operate the heat function of the chair and to alert nursing staff if the chair feels too warm. Patient instructed on the risk of potential lang while using the heat function. Patient had no reaction after test dose of Infed, infusion completed without any issue. Son called to pick patient up [phone] Goals: patient remained free of injury Possible barriers to meeting goals: ambulation with IV pole, increase risk of fall Stability of the patient: Moderately stable - low risk of patient condition declining or worsening Summary regarding today's goals: Met: patient remained free of injury Patient discharged in good condition with son documented in this encounter Plan of Treatment Upcoming Encounters Date Type Department Care Team (Late st Contact Info) Description 05/10/2024 8:00 AM EDT [facility] [address] [facility] [place] [address] Cameron Molina DO [address] [facility] [place] [address] 05/11/2024 11:00 AM EDT Laboratory LaboratoryKane[address] [place] [phone] April Cuadra [address] [place] [address] 07/02/2024 3:00 PM EDT Laboratory Laboratory [facility] [place] [address] [place] [phone] Jeanie Lab [address] [place] [address] 07/02/2024 3:30 PM EDT Office Visit Hematology/Oncolog y [facility] [address] [place] [phone] Raquel Edmond CRNP [address] [facility] [place] [address] 07/05/2024 7:30 AM EDT Office Visit Ophthalmology, [facility] [address] [place] [address] Cameron Molina, DO [address] [place] [address] 09/11/2024 1:30 PM EST Hospital Encounter ENDO OSSC, Endoscopy Room [facility] [address] [place] [phone] Maya Quiñones DO [address] [place] [address] 09/11/2024 1:30 PM EST - 09/11/2024 2:30 PM EST Surgery ENDO [facility], Endoscopy Room [facility] [address] [place] [phone] Maya Quiñones DO [address] [place] [address] COLONOSCOPY FLEXIBLE PROXIMAL DIAGNOSTIC 03/29/2025 4:30 PM EDT Imaging Radiology [facility] [address] [place] [address] Scheduled Procedures Name Priority Associated Diagnoses Date/Ti me COLONOSCOPY FLEXIBLE PROXIMA L DIAGNOSTIC Recall Screen for colon cancer Anemia, unspecified type 09/11/2024 1:30 PM EST ESOPHAGOGASTRODUODENOSCOPY ( EGD), FLEXIBLE, TRANSORAL, DIAGNOSTIC Recall Screen for colon cancer Anemia, unspecified type 09/11/2024 1:30 PM EST Health Maintenance Due Date Last Done Comments Depression Screening 1976 Pap Smear 1985 Cervical Cancer Screening 1994 HPV/Co-Test 1994 Cologuard 2009 Fecal Occult Blood Test 2009 Sigmoidoscopy 2009 COVID-19 Vaccine ( season) 2023 12/23/2020, 12/02/2020 Albumin/Creatinine Ratio 10/04/2023 023, 11/03/2021, 09/09/2020, Additional history exists Mammogram 12/30/2023 12/29/2022, 12/29/2022 Hepatitis B Vaccine (3 of 3 - 19+ 3-dose series) 01/11/2024 11/16/2023, 12/23/2022 Influenza Vaccine (FLU shot) (#1) 2024 08/24/2023, 09/24/2022 HbA1c 08/16/2024 02/14/2024, 06/19, 10/04/2022, Additional history exists Diabetic Foot Exam 08/24/2024 08/24/2023, 11/03/2021 Diabetic Eye Exam 01/04/2025 01/05/2024, , 01/05/2024, Additional history exists GFR 02/13/2025 02/14/2024, 06/19, 12/15/2022, Additional history exists Lipid Panel 02/13/2029 02/14/2024, 06/19, 10/04/2022, Additional history exists Colonoscopy 10/08/2030 10/08/2020, 10/08/2020 Colorectal Cancer Screening 10/08/2030 DTaP,Tdap,and Td Vaccines (2 - Td or Tdap) 05/04/2032 05/04/2022 HIV Screening Completed 11/03/2021 Hepatitis C Screening Completed 11/03/2021 , 11/03/2021, 11/03/2021 *BASELINE EKG FOR HTN Completed 05/04/2022 Zoster Vaccines Completed 05/04/2022, 11/03/2021 Pneumococcal Vaccine: Pediatrics (0 to 5 Years) and At-Risk Patients (6 to 64 Years) Completed 12/23/2022, 11/03/2021 HPV (Gardasil) Vaccine Aged Out No lo nger eligible based on patient's age to complete this topic MENINGOCOCCAL (MENACTRA/MENVEO) Aged Out No longer eligible based on patient's age to complete this topic documented as of this encounter Medical Devices Implanted Type Area Foreclosure Paralegal Device Identifier Shelf Expiration Date Model / Serial / Lot Lens [id number] 12.5mm+20.00 - [id number] - [id number] Implanted:Qty: 1 on 03/07/2024 by Cameron Molina DO at OR [facility] Left: Eye [employer] 10/19/2026 [id number] / [id number] / [id number] Lens [id number] 12.5mm+22.00 - [id number] - [id number] Implanted:Qty: 1 on 04/04/2024 by Cameron Molina DO at OR [facility] Right: Eye [employer]OM[employer] 07/19/2026 [id number] / [id number] / [id number] documented as of this encounter Visit Diagnoses Diagnosis Iron deficiency anemia due to chronic blood loss- Primary Iron deficiency anemia secondary to blood loss (chronic) Screen for colon cancer Special screening for malignant neoplasms, colon Anemia, unspecified type Screening mammogram for breast cancer documented in this encounter Administered Medications Inactive Administered Medications - up to 3 most recent administrations Medication Order MAR Action Action Date Dose Rate Site Iron Dextran (Infed) 475 mg in NSS 250 mL INFUSION 475 mg, IV Piggyback, ONCE, 1 dose, On Tue04/13/24 at 1445, Administer over 1 Hours, - Administer iron dextran infusion bag over 1 hour - Monitor for infusion reactions with vitals at 30 minutes and 60 minutes after starting the infusion. - If patient develops sign/symptoms of reaction or vital signs outside normal limits: 1) STOP infusion 2) CONTACT physician Start Infusion 04/13/2024 1:58 PM EDT 475 mg 264.5 mL/hr Iron Dextran (Infed) IV Push TEST DOSE 25 mg IV Push, Administer over 0.5 Minutes, -Educate patient on signs/symptoms of infusion reaction -Administer 25 mg test dose of iron dextran before infusion bag -Observe patient for signs/symptoms of reaction with vital signs before test dose, then at 15 minutes after administering the test dose -If patient tolerates test dose with no reaction, proceed with iron dextran infusion -HOLD infusion and contact physician immediately if patient reacts to test dose, ONCE, 1 dose, On Tue04/13/24 at 1430 Given 04/13/2024 1:35 PM EDT 25 mg NSS infusion Intravenous, at 50 mL/hr, PRN, Starting on Tue04/13/24 at 1430, Until Tue04/13/24 at 2005, Maintenance line Start Infusion 04/13/2024 1:24 PM EDT 50 mL/hr documented in this encounter Advance Directives * Full Code (Latest Code Status on File) Date Activated Date Inactivated Comments 04/04/2024 11:31 AM 04/04/2024 5:57 PM Question Answer Comments Discussion of Advance Direct jose david occurred with: Not Discussed due to patient's condition * Full Code Date Activated Date Inactivated Comments 03/07/2024 12:02 PM 03/07/2024 7:13 PM Question Answer Comments Discussion of Advance Direct jose david occurred with: Not Discussed due to patient's condition * Full Code Date Activated Date Inactivated Comments 02/22/2024 12:02 PM 02/22/2024 5:27 PM Question Answer Comments Discussion of Advance Direct jose david occurred with: Not Discussed due to patient's condition Care Teams Chief Crna Relationship Specialty Start Date End Date Maritza Lyles MD [address] [facility] [place] [address] PCP - General Internal Medicine 10/03/20 documented as of this encounter
--- OUTSIDE RECORDS SUMMARY | 2024-05-01 07:34 | External Medical Summary | Summary of Care ---
Author Name Unknown Organization [facility] Address [address] [facility] [address] Phone [phone] Care Team Providers Care Nut Feeder Name Role Phone Maritza Lylse MD Primary Care Provider + Reason for Visit * Reason Comments IV Therapy Infed Infusion Encounter Details Date Type Department Care Team (Latest Contact Info) Description 04/13/2024 1:00 PM EDT Hem/Onc Treatment Hematology/Oncology Treatment, [address] [place] [address] Jeanie, Chair 2 Hem Onc [address] [address] Iron deficiency anemia due to chronic blood loss* Allergies No known active allergiesdocumented as of this encounter (statuses as of 04/13/2024) Medications Medication Sig Dispensed Refills Start Date End Date Status Aspirin 81 MG Oral Capsule at bedtime. 05/23/2021 Active metFORMIN HCl 500 MG Oral Tablet (Glucophage)Indica tions:Type 2 diabetes mellitus with hemoglobin A1c goal of less than 7.0% ([facility]) Take 2 Tablets by mouth 2 times [...] as of this encounter (statuses as of 04/13/2024) Active Problems Problem Noted Date Diagnosed Date [...] as of this encounter (statuses as of 04/13/2024) Immunizations Name Administration Dates Next Due Hepatitis B, 20+ yrs 11/16/2023,12/23/2022 Pneumococcal Conjugate Vacci ne, 20-valent ([id number]) 12/23/2022 Pneumococcal Polysaccharide PPV23 (Pneumovax) Seasonal Influenza, [...] speaks Beth, language line used for communication ([id number]). Patient denies any nausea, vomiting, diarrhea, fever [...] issue. Son called to pick patient up [phone] Goals: patient remained free of injury Possible [...] Description 05/10/2024 8:00 AM EDT [facility] [address] [facility] [place] [address] Cameron Molina DO 21 [facility] [place] [address] 05/11/2024 11:00 AM EDT Laboratory LaboratoryKane[address] [place] [phone] April Cuadra [address] [place] [address] 07/02/2024 3:00 PM EDT Laboratory Laboratory [facility] [place] [address] [place] [phone] Jeanie Lab [address] [place] [address] 07/02/2024 3:30 PM EDT Office Visit Hematology/Oncolog y [facility] [place] [address] [place] [phone] Raquel Edmond CRNP 400 [facility] [place] [address] 07/05/2024 7:30 AM EDT Office Visit Ophthalmology, [facility] [address] [place] [address] Cameron Molina, DO [address] [place] [address] 09/11/2024 1:30 PM EST Hospital Encounter ENDO OSS[facility], Endoscopy Room [facility] [address] [place] [phone] Maya Quiñones DO [address] [place] [address] 09/11/2024 1:30 PM EST - 09/11/2024 2:30 PM EST Surgery ENDO [facility], Endoscopy Room [facility] [address] [place] [phone] Maya Quiñones DO [address] [place] [address] COLONOSCOPY FLEXIBLE PROXIMAL DIAGNOSTIC 03/29/2025 4:30 PM EDT Imaging Radiology [facility]st [facility] [address] [place] [address] Scheduled Procedures Name Priority Associated Diagnoses Date/Ti [...] (2 - Td or Tdap) 05/04/2032 05/04/2022 Zoster Vaccines Completed 05/04/2022, 11/03/2021 Pneumococcal [...] this encounter Medical Devices Implanted Type Area Maintenance Coordinator Device Identifier Shelf Expiration Date Model / Serial / Lot Lens [id number] 12.5mm+20.00 - [id number] - [id number] Implanted:Qty: 1 on 03/07/2024 by Cameron Molina DO at OR [facility] Left: Eye [employer] 10/19/2026 [id number] / [id number] / [id number] Lens [id number] 12.5mm+22.00 - [id number] - [id number] Implanted:Qty: 1 on 04/04/2024 by Cameron Molina DO at OR [facility] Right: Eye [employer]OM[employer] 07/19/2026 [id number] / [id number] / [id number] documented as of this encounter Visit Diagnoses Diagnosis Iron deficiency anemia due to chronic blood loss- Primary Iron deficiency anemia secondary to blood loss (chronic) Screen for colon cancer Special screening for malignant neoplasms, colon Anemia, unspecified type Screening mammogram for breast cancer documented in this encounter Administered Medications Active Administered Medications - up to 3 most recent administrations Medication Order MAR Action Action Date Dose Rate Site EPINEPHrine 1 MG/ML inj 0.3 mg 0.3 mg, Intramuscular, ONCE PRN Other, Hypersensitivity Reaction or Anaphylaxis, Starting on Tue04/13/24 at 1317, Until 04/14/24 at 1316, For 24 hours Famotidine (Pepcid) inj 20 mg 20 mg, IV Push, ONCE PRN Other, Hypersensitivity Reaction, Starting on Tue04/13/24 at 1317, Until 04/14/24 at 1316, For 24 hours, Give IV push over 2 minutes. hEParin 100 UNIT/ML Lock Flush inj 500 Units 500 Units (5 mL), IV Lock, PRN Other, IV Flush, Starting on Tue04/13/24 at 1317, Until 04/14/24 at 1316, For 24 hours, Do not flush if lock, PICC, or central line not in place; IV infusing or unable to flush. Hydrocortisone Sod Suc (PF) (Solu-Cortef) inj 100 mg 100 mg, IV Push, ONCE PRN Other, Hypersensitivity Reaction, Starting on Tue04/13/24 at 1317, Until 04/14/24 at 1316, For 24 hours NSS infusion Intravenous, at 50 mL/hr, PRN, Starting on Tue04/13/24 at 1430, Until Discontinued, Maintenance line Start Infusion 04/13/2024 1:24 PM EDT 50 mL/hr oxygen GAS Inhalation, OXYGEN, First dose on Tue04/13/24 at 1600, Until Discontinued, Device/Managed by: Low Flow Device, Goal SPO2 (%): 91-95, Starting Device: Nasal Cannula, Initial Flow Rate (LPM): 2, Lowest Support: Nasal Cannula: Flow 0-6 LPM. Titrate up/down by 1 LPM., Higher Support: Non-Rebreather (NRB) Mask: Minimum of 10 LPM. Titrate to maintain bag inflation., Titration Interval: Q2 minutes and as needed., Notify Provider: For sudden DECREASE in resting SPO2 to less than 85% and when escalating delivery device., Wean patient off Oxygen when the oxygen saturation is greater than or equal to 93% sodium chloride 0.9 % flush central line 10 mL 10 mL, IV Push, PRN Other, IV Flush, Starting on Tue04/13/24 at 1317, Until 04/14/24 at 1316, For 24 hours, Do not flush if lock, PICC, or central line not in place; IV infusing or unable to flush. Inactive Administered Medications - up to 3 [...] Given 04/13/2024 1:35 PM EDT 25 mg documented in this encounter Advance Directives * [...] Discussed due to patient's condition Care Teams Nut Feeder Relationship Specialty Start Date End Date Maritza Lyles MD 200 [place] [address] PCP - General Internal Medicine 10/03/20 documented as of this encounter
--- OUTSIDE RECORDS SUMMARY | 2024-05-01 07:34 | External Medical Summary | Summary of Care ---
Author Name Unknown Organization [facility] Address [address] [facility] [address] Phone [phone] Care Team Providers Care Clinical Product Manager Name Role Phone Maritza Lyles MD Primary Care Provider + Reason for Visit * Reason Comments IV Therapy Infed Infusion Encounter Details Date Type Department Care Team (Latest Contact Info) Description 04/13/2024 1:00 PM EDT Hem/Onc Treatment Hematology/Oncology Treatment, [address] [place] [address] Jeanie, Chair 2 Hem Onc [address] [address] Iron deficiency anemia due to chronic blood loss* Allergies No known active allergiesdocumented as of this encounter (statuses as of 04/27/2024) Medications Medication Sig Dispensed Refills Start Date End Date Status Aspirin 81 MG Oral Capsule at bedtime. 05/23/2021 Active metFORMIN HCl 500 MG Oral Tablet (Glucophage)Indica tions:Type 2 diabetes mellitus with hemoglobin A1c goal of less than 7.0% ([facility]) Take 2 Tablets by mouth 2 [...] as of this encounter (statuses as of 04/27/2024) Active Problems Problem Noted Date Diagnosed Date [...] as of this encounter (statuses as of 04/27/2024) Immunizations Name Administration Dates Next Due Hepatitis B, 20+ yrs 11/16/2023,12/23/2022 Pneumococcal Conjugate Vacci ne, 20-valent ([id number]) 12/23/2022 Pneumococcal Polysaccharide PPV23 (Pneumovax) Seasonal Influenza, [...] speaks Beth, language line used for communication ([id number]). Patient denies any nausea, vomiting, diarrhea, fever [...] issue. Son called to pick patient up [phone] Goals: patient remained free of injury Possible [...] Description 05/10/2024 8:00 AM EDT [facility] 132 [facility] [place] [address] Cameron Molina DO 21 [facility] [place] [address] 05/11/2024 11:00 AM EDT Laboratory LaboratoryKane[address] [place] [phone] April Cuadra [address] [place] [address] 07/02/2024 3:00 PM EDT Laboratory Laboratory [facility] [address] [place] [phone] Jeanie Lab [address] [place] [address] 07/02/2024 3:30 PM EDT Office Visit Hematology/Oncolog y [facility] [address] [place] [phone] Raquel Edmond CRNP 400 [facility] [place] [address] 07/05/2024 7:30 AM EDT Office Visit Ophthalmology, [facility] [address] [place] [address] Cameron Molina, DO [address] [place] [address] 09/11/2024 1:30 PM EST Hospital Encounter ENDO OSS[facility], Endoscopy Room [facility] [address] [place] [phone] Maya Quiñones DO [address] [place] [address] 09/11/2024 1:30 PM EST - 09/11/2024 2:30 PM EST Surgery ENDO [facility], Endoscopy Room [facility] [address] [place] [phone] Maya Quiñones DO [address] [place] [address] COLONOSCOPY FLEXIBLE PROXIMAL DIAGNOSTIC 03/29/2025 4:30 PM EDT Imaging Radiology [facility] [address] [facility] [address] [place] [address] Scheduled Procedures Name Priority Associated Diagnoses Date/Ti [...] this encounter Medical Devices Implanted Type Area Press Brake Operator Device Identifier Shelf Expiration Date Model / Serial / Lot Lens [id number] 12.5mm+20.00 - [id number] - [id number] Implanted:Qty: 1 on 03/07/2024 by Cameron Molina DO at OR [facility] Left: Eye [employer] 10/19/2026 [id number] / [id number] / [id number] Lens [id number] 12.5mm+22.00 - [id number] - [id number] Implanted:Qty: 1 on 04/04/2024 by Cameron Molina DO at OR [facility] Right: Eye [employer]OMB 07/19/2026 [id number] / [id number] / [id number] documented as of this encounter Visit Diagnoses [...] Discussed due to patient's condition Care Teams Clinical Product Manager Relationship Specialty Start Date End Date Maritza Lyles MD 200 [facility] [place] [address] PCP - General Internal Medicine 10/03/20 documented as of this encounter
--- OUTSIDE RECORDS SUMMARY | 2024-05-01 07:34 | External Medical Summary | Summary of Care ---
Author Name Unknown Organization [facility] Address [address] [facility] [address] Phone [phone] Care Team Providers Care Wire Coiler Name Role Phone Maritza Lyles MD Primary Care Provider + Reason for Visit * Reason Comments IV Therapy Infed Infusion Encounter Details Date Type Department Care Team (Latest Contact Info) Description 04/13/2024 1:00 PM EDT Hem/Onc Treatment Hematology/Oncology Treatment, [address] [place] [address] Jeanie, Chair 2 Hem On[address] [address] Iron deficiency anemia due to chronic blood loss* Allergies No known active allergiesdocumented as of this encounter (statuses as of 04/27/2024) Medications Medication Sig Dispensed Refills Start Date End Date Status Aspirin 81 MG Oral Capsule at bedtime. 05/23/2021 Active metFORMIN HCl 500 MG Oral Tablet (Glucophage)Indica tions:Type 2 diabetes mellitus with hemoglobin A1c goal of less than 7.0% ([facility]) Take 2 Tablets by mouth 2 [...] yrs 11/16/2023,12/23/2022 Pneumococcal Conjugate Vacci ne, 20-valent ([id number]) 12/23/2022 Pneumococcal Polysaccharide PPV23 (Pneumovax) Seasonal Influenza, [...] speaks Beth, language line used for communication ([id number]). Patient denies any nausea, vomiting, diarrhea, fever [...] issue. Son called to pick patient up [phone] Goals: patient remained free of injury Possible [...] Description 05/10/2024 8:00 AM EDT [facility] [place] [address] Cameron Molina DO 21 [facility] [place] [address] 05/11/2024 11:00 AM EDT Laboratory LaboratoryKane[address] [place] [address] April Cuadra [address] [place] [address] 07/02/2024 3:00 PM EDT Laboratory Laboratory [facility] [place] [address] [place] [phone] Jeanie Lab [address] [place] [address] 07/02/2024 3:30 PM EDT Office Visit Hematology/Oncolog y [facility] [place] [address] [place] [phone] Raquel Edmond CRNP 400 [facility] [place] [address] 07/05/2024 7:30 AM EDT Office Visit Ophthalmology, [facility] [address] [place] [address] Cameron Molina, DO [address] [place] [address] 09/11/2024 1:30 PM EST Hospital Encounter ENDO [facility], Endoscopy Room [facility] [address] [place] [phone] Maya Quiñones DO [address] [place] [address] 09/11/2024 1:30 PM EST - 09/11/2024 2:30 PM EST Surgery ENDO [facility], Endoscopy Room [facility] [address] [place] [phone] Maya Quiñones DO [address] [place] [address] COLONOSCOPY FLEXIBLE PROXIMAL DIAGNOSTIC 03/29/2025 4:30 PM EDT Imaging Radiology [facility] 1st [facility] [address] [place] [address] Scheduled Procedures Name Priority Associated Diagnoses Date/Ti [...] this encounter Medical Devices Implanted Type Area Hat Sizer Device Identifier Shelf Expiration Date Model / Serial / Lot Lens [id number] 12.5mm+20.00 - [id number] - [id number] Implanted:Qty: 1 on 03/07/2024 by Cameron Molina DO at OR [facility] Left: Eye [employer] 10/19/2026 [id number] / [id number] / [id number] Lens [id number] 12.5mm+22.00 - [id number] - [id number] Implanted:Qty: 1 on 04/04/2024 by Cameron Molina DO at OR [facility] Right: Eye [employer] LOMB 07/19/2026 [id number] / [id number] / [id number] documented as of this encounter Visit Diagnoses [...] Discussed due to patient's condition Care Teams Wire Coiler Relationship Specialty Start Date End Date Maritza Lyles MD 200 [place] [address] PCP - General Internal Medicine 10/03/20 documented as of this encounter
--- OUTSIDE RECORDS SUMMARY | 2024-05-01 07:34 | External Medical Summary | Summary of Care ---
Author Name Unknown Organization [facility] Address [address] [facility] [address] Phone [phone] Care Team Providers Care Brusher Hand Name Role Phone Maritza Lyles MD Primary Care Provider + Reason for Visit * Reason Comments IV Therapy Infed Infusion Encounter Details Date Type Department Care Team (Latest Contact Info) Description 04/13/2024 1:00 PM EDT Hem/Onc Treatment Hematology/Oncology Treatment, [address] [place] [address] Jeanie, Chair 2 Hem Onc [address] [address] Iron deficiency anemia due to chronic blood loss* Allergies No known active allergiesdocumented as of this encounter (statuses as of 04/27/2024) Medications Medication Sig Dispensed Refills Start Date End Date Status Aspirin 81 MG Oral Capsule at bedtime. 05/23/2021 Active metFORMIN HCl 500 MG Oral Tablet (Glucophage)Indica tions:Type 2 diabetes mellitus with hemoglobin A1c goal of less than 7.0% ([facility]) Take 2 Tablets by mouth [...] yrs 11/16/2023,12/23/2022 Pneumococcal Conjugate Vacci ne, 20-valent ([id number]) 12/23/2022 Pneumococcal Polysaccharide PPV23 (Pneumovax) Seasonal Influenza, [...] speaks Beth, language line used for communication ([id number]). Patient denies any nausea, vomiting, diarrhea, fever [...] issue. Son called to pick patient up [phone] Goals: patient remained free of injury Possible [...] Description 05/10/2024 8:00 AM EDT [facility] 132 [facility] [place] [address] Cameron Molina DO 21 [facility] [place] [address] 05/11/2024 11:00 AM EDT Laboratory LaboratoryKane[address] [place] [phone] April Cuadra [address] [place] [address] 07/02/2024 3:00 PM EDT Laboratory Laboratory [facility] [place] [address] [place] [phone] Jeanie Lab [address] [place] [address] 07/02/2024 3:30 PM EDT Office Visit Hematology/Oncolog y [facility] [place] [address] [place] [phone] Raquel Edmond CRNP 400 [facility] [place] [address] 07/05/2024 7:30 AM EDT Office Visit Ophthalmology, [facility] [address] [place] [address] Cameron Molina, DO [address] [place] [address] 09/11/2024 1:30 PM EST Hospital Encounter ENDO [facility], Endoscopy Room [facility] [address] [place] [phone] Maya Quiñones DO [address] [place] [address] 09/11/2024 1:30 PM EST - 09/11/2024 2:30 PM EST Surgery ENDO [facility], Endoscopy [facility] [address] [place] [phone] Maya Quiñones DO [address] [place] [address] COLONOSCOPY FLEXIBLE PROXIMAL DIAGNOSTIC 03/29/2025 4:30 PM EDT Imaging Radiology [facility] 1st [facility] [address] [place] [address] Scheduled Procedures Name Priority Associated Diagnoses Date/Ti [...] this encounter Medical Devices Implanted Type Area Citrus Fruit Packer Device Identifier Shelf Expiration Date Model / Serial / Lot Lens [id number] 12.5mm+20.00 - [id number] - [id number] Implanted:Qty: 1 on 03/07/2024 by Cameron Molina DO at OR [facility] Left: Eye [employer] 10/19/2026 [id number] / [id number] / [id number] Lens [id number] 12.5mm+22.00 - [id number] - [id number] Implanted:Qty: 1 on 04/04/2024 by Cameron Molina DO at OR [facility] Right: Eye [employer] LOMB 07/19/2026 [id number] / [id number] / [id number] documented as of this encounter Visit Diagnoses [...] Discussed due to patient's condition Care Teams Brusher Hand Relationship Specialty Start Date End Date Maritza Lyles MD 200 [place] [address] PCP - General Internal Medicine 10/03/20 documented as of this encounter
--- OUTSIDE RECORDS SUMMARY | 2024-05-01 07:34 | External Medical Summary | Summary of Care ---
Author Name Unknown Organization [facility] Address [address] [facility] [place] [address] Phone [phone] Care Team Providers Care Transformer Assembler Name Role Phone Maritza Lyles MD Primary Care Provider + Encounter Details Date Type Department Care Team (Late st Contact Info) Description 04/12/2024 9:30 AM EDT Office Visit Ophthalmology, [facility] 132 [facility] [place] [address] Cameron Molina, DO 21 [facility] [place] [address] Pseudophakia* Allergies No known active allergiesdocumented as of this encounter (statuses as of 04/12/2024) Medications Medication Sig Dispensed Refills Start Date End Date Status Aspirin 81 MG Oral Capsule at bedtime. 05/23/2021 Active metFORMIN HCl 500 MG Oral Tablet (Glucophage)Indica tions:Type 2 diabetes mellitus with hemoglobin A1c goal of less than 7.0% ([facility]) Take 2 Tablets by mouth 2 times [...] as of this encounter (statuses as of 04/12/2024) Active Problems Problem Noted Date Diagnosed Date [...] as of this encounter (statuses as of 04/12/2024) Immunizations Name Administration Dates Next Due Hepatitis B, 20+ yrs 11/16/2023,12/23/2022 Pneumococcal Conjugate Vacci ne, 20-valent ([id number]) 12/23/2022 Pneumococcal Polysaccharide PPV23 (Pneumovax) Seasonal Influenza, [...] on file documented as of this encounter Progress Notes * Cameron Molina, - 04/12/2024 9:30 AM EDT 04/12/2024 [facility] Ophthalmology Post-operative Clinic Note HPI: Taj Laura is a 58 year old pt who presents to the eye clinic today for 1 week post-op CE PCIOL OD (Ensor TCC MX60E 22.0 04/04/2024) +FBS OS Route Aide: Waqar Canchola [id number] VA: 20/20 IOP: 20 mmHg LL: Normal Conjunctiva: Normal Cornea: CCI and paracentesis raudel negative AC: 1+ c/f Iris: dilation Lens: PCIOL centered Vitreous: PVD Optic nerve: Normal Macula: Normal Vessels: Normal Periphery: No break/tear A/P: 1 week post op CE PCIOL OD (Ensor TCC MX60E 22.0 04/04/2024) Stable DFE Taper prednisolone as directed by one drop weekly 1 drop BID x 2 weeks, then 1 drop daily x 2 weeks, then stop May stop vigamox D/c eye shield Gradual return to normal activity levels Call with flashes, floaters, dec vision eye pain. Advised of infection prevention coordinator coverage for after hours/weekend emergencies. Artificial tears QID or PRN RTC 4 weeks or sooner prn. Cameron Molina DO 04/12/24 documented in this encounter Nursing Notes * Luanne Reece TECH - 04/12/2024 9:37 AM EDT Taj Laura presents for p/o check. 1 week post-op ECCE w/IOL insertion Surgical eye RIGHT EYE Patient denies complaints Current Ophthalmic Medications: Pred Forte and Ofloxacin 1gtt 4 times daily in surgical eye Are you taking the drops as directed? Yes documented in this encounter Plan of Treatment Upcoming Encounters Date Type Department Care Team (Late st Contact Info) Description 04/13/2024 1:00 PM EDT Hem/Onc Treatment Hematology/Oncolog y Treatment, [place] [address] [place] [phone] Jeanie, Chair 2 Hem Onc [place] 200 [facility] [place] [address] 07/02/2024 3:00 PM EDT Laboratory Laboratory [facility] [place] [phone] Jeanie, Lab [facility] [place] [address] 07/02/2024 3:30 PM EDT Office Visit Hematology/Oncolog y [facility] 200 [facility] [place] [phone] Raquel Edmond CRNP 400 [facility] [place] [address] 07/05/2024 7:30 AM EDT Office Visit Ophthalmology, [facility] 132 [facility] [place] [address] Cameron Molina DO [address] [facility] [place] [address] 09/11/2024 1:30 PM EST Hospital Encounter ENDO [facility], Endoscopy Room [facility] [address] [place] [address] Maya Quiñones, DO [address] [place] [address] 09/11/2024 1:30 PM EST - 09/11/2024 2:30 PM EST Surgery ENDO [facility], Endoscopy Room [facility] [address] [place] [phone] Maya Quiñones, [address] [place] [address] COLONOSCOPY FLEXIBLE PROXIMAL DIAGNOSTIC 03/29/2025 4:30 PM EDT Imaging Radiology [address] [place] [address] Scheduled Procedures Name Priority Associated Diagnoses Date/Ti [...] this encounter Medical Devices Implanted Type Area Parts Fabricator Device Identifier Shelf Expiration Date Model / Serial / Lot Lens [id number] 12.5mm+20.00 - [id number] - [id number] Implanted:Qty: 1 on 03/07/2024 by Cameron oMlina DO at OR [facility] Left: Eye [employer]OMB 10/19/2026 [id number] / [id number] / [id number] Lens [id number] 12.5mm+22.00 - [id number] - [id number] Implanted:Qty: 1 on 04/04/2024 by Cameron Molina DO at OR [facility] Right: Eye BA[employer]CH [employer] LOMB 07/19/2026 [id number] / [id number] / [id number] documented as of this encounter Visit Diagnoses Diagnosis Pseudophakia- Primary Lens replaced by other means Screen for colon cancer Special screening for malignant neoplasms, colon Anemia, unspecified type Screening mammogram for breast cancer documented in this encounter Advance Directives * [...] Discussed due to patient's condition Care Teams Transformer Assembler Relationship Specialty Start Date End Date Maritza Lyles MD 200 [facility] [place], [place] [address] PCP - General Internal Medicine 10/03/20 documented as of this encounter
--- OUTSIDE RECORDS SUMMARY | 2024-05-01 07:35 | External Medical Summary | Summary of Care ---
Author Name Unknown Organization [facility] Address [address] [place] [address] Phone [phone] Care Team Providers Care Seed Pelleter Name Role Phone Maritza Lyles MD Primary Care Provider + Encounter Details Date Type Department Care Team (Late st Contact Info) Description 04/02/2024 Telephone Hematology/Oncology, [facility] [address] [place] [address] Raquel Edmond CRNP [address] [place] [address] Allergies No known active allergiesdocumented as of this encounter (statuses as of 04/05/2024) Medications Medication Sig Dispensed Refills Start Date End Date Status Aspirin 81 MG Oral Capsule at bedtime. 05/23/2021 Active metFORMIN HCl 500 MG Oral Tablet (Glucophage)Indica tions:Type 2 diabetes mellitus with hemoglobin A1c goal of less than 7.0% ([facility]) Take 2 Tablets by mouth 2 times [...] as of this encounter (statuses as of 04/05/2024) Active Problems Problem Noted Date Diagnosed Date [...] as of this encounter (statuses as of 04/05/2024) Immunizations Name Administration Dates Next Due Hepatitis B, 20+ yrs 11/16/2023,12/23/2022 Pneumococcal Conjugate Vacci ne, 20-valent ([id number]) 12/23/2022 Pneumococcal Polysaccharide PPV23 (Pneumovax) Seasonal Influenza, [...] on file documented as of this encounter Miscellaneous Notes * Telephone Encounter - Maya Rose OSA - 04/05/2024 10:37 AM EDT Apt is scheduled and pt is aware * Telephone Encounter - Lazara Ralph RN - 04/05/2024 8:42 AM EDT Patient did not read MyG. Called and spoke to patients daughter- she will ask her mom to check portal message. Scheduling: if patient/ daughter call in, ok to schedule 3 hour appt "infed" (Raquel). Thanks! * Telephone Encounter - Lazara Ralph RN - 04/03/2024 10:03 AM EDT Wana plan for infed built and routed for signature. Prior auth not needed for infed. MyG sent to patient. * Telephone Encounter - Raquel Edmond CRNP - 04/02/2024 1:46 PM EDT Results for orders placed or performed in visit on 03/30/24 IRON SCREEN, INCLUDING TIBC Result Value Ref Range Iron 32 (L) 33 - 151 ug/dL Iron Binding Capacity 367 250 - 425 ug/dL Transferrin Saturation Percent 9 (L) 15 - 55 % FERRITIN Result Value Ref Range Ferritin 79 13 - 150 ng/mL CBC Result Value Ref Range WBC 10.17 4.00 - 10.80 K/uL RBC 4.81 3.85 - 5.15 M/uL HGB 11.5 (L) 12.0 - 15.3 g/dL HCT 37.7 36.0 - 45.2 % MCV 78.4 81.5 - 97.5 fL MCH 23.9 27.0 - 34.0 pg MCHC 30.5 32.0 - 36.0 g/dL RDW 21.1 11.5 - 15.5 % PLT 385 140 - 400 K/uL MPV 9.5 6.6 - 11.1 fL DIFFERENTIAL, AUTOMATED Result Value Ref Range WBC 10.17 4.00 - 10.80 K/uL Neutrophils % 52.8 40.0 - 75.0 % Lymphocytes % 35.1 18.0 - 42.0 % Monocytes % 10.4 1.0 - 11.0 % Eosinophils % 1.4 0.0 - 6.0 % Basophils % 0.3 0.0 - 2.0 % Absolute Neutrophils 5.37 1.80 - 7.70 K/uL Absolute Lymphocytes 3.57 1.00 - 4.80 K/ul Absolute Monocytes 1.06 0.00 - 1.10 K/uL Absolute Eosinophils 0.14 0.00 - 0.70 K/uL Absolute Basophils 0.03 0.00 - 0.20 K/uL Residual MILEY present. D/T venofer shortage patient was only able to receive two doses of IV Venofer. Would recommend one additional dose of INFeD 500 mg IV. Order placed. Please make patient aware and if agreeable assist with scheduling. documented in this encounter Plan of Treatment Upcoming Encounters Date Type Department Care Team (Late st Contact Info) Description 04/12/2024 9:30 AM EDT Office Visit Ophthalmology, [facility] 132 [facility] [place] [address] Cameron Molina, DO [address] [place] [address] 04/13/2024 1:00 PM EDT Hem/Onc Treatment Hematology/Oncolog y Treatment, [place] [address] [place] [phone] Jeanie, Chair 2 Hem Onc Scenery 200 [facility] [place] [address] 05/03/2024 3:45 PM EDT Office Visit Ophthalmology, [facility] [address] [place] [address] Cameron Molina, DO [address] [place] [address] 07/02/2024 3:00 PM EDT Laboratory Laboratory [facility] [place] [address] [place] [phone] Jeanie, Lab [address] [facility] [place] [address] 07/02/2024 3:30 PM EDT Office Visit Hematology/Oncolog y [facility] Jeanie [place] [address] [place] [phone] Raquel Edmond CRNP [address] [place] [address] [place] [address] 09/11/2024 1:30 PM EST Hospital Encounter [facility]O [facility], Endoscopy Room [facility] 132 [facility] [place] [phone] Maya Quiñones, 132 [facility] [place] [address] 09/11/2024 1:30 PM EST - 09/11/2024 2:30 PM EST Surgery ENDO [facility], Endoscopy Room [facility] [address] [place] [phone] Nuria Maya [place], [address] [place] [address] COLONOSCOPY FLEXIBLE PROXIMAL DIAGNOSTIC 03/29/2025 4:30 PM EDT Imaging Radiology [address] [place] [address] Scheduled Procedures Name Priority Associated Diagnoses Date/Ti [...] this encounter Medical Devices Implanted Type Area Cvt Tech Device Identifier Shelf Expiration Date Model / Serial / Lot Lens [id number] 12.5mm+20.00 - [id number] - [id number] Implanted:Qty: 1 on 03/07/2024 by Cameron Molina DO at OR [facility] Left: Eye [employer]CH [employer] LOMB 10/19/2026 [id number] / [id number] / [id number] Lens [id number] 12.5mm+22.00 - [id number] - [id number] Implanted:Qty: 1 on 04/04/2024 by Cameron Molina DO at OR [facility] Right: Eye BAUSCH & LOMB 07/19/2026 [id number] / [id number] / [id number] documented as of this encounter Visit Diagnoses [...] Discussed due to patient's condition Care Teams Seed Pelleter Relationship Specialty Start Date End Date Maritza Lyles MD 200 [place] [address] PCP - General Internal Medicine 10/03/20 documented as of this encounter
--- OUTSIDE RECORDS SUMMARY | 2024-05-01 07:35 | External Medical Summary | Summary of Care ---
Author Name Unknown Organization [facility] Address [address] [place] [address] Phone [phone] Care Team Providers Care Sweep Press Operator Name Role Phone Maritza Lyles MD Primary Care Provider + Reason for Referral * Ancillary Services (Within 10 days (routine)) - Authorized Specialty Diagnoses / Procedures Referred By Gus ramirez Referred To Contact Gastroenterology Diagnoses Iron deficiency anemia due to chronic blood loss Raquel Edmond CRNP [address] [place] [address] Referral ID Status Reason Start Date Expiration Date Visits Requested Visits Authorized [id number] Authorized Ancillary Services Required 03/30/[phone] Question Answer Referral Priority Within 10 days (routine) Where should this appointment be scheduled? [facility] Comments Upper Endoscopy ASGE Guidelines Presumed chronic blood loss and for iron deficiency anemia when the clinical situation suggests an upper GI source or when colonoscopy results are negative ADDITIONAL INFORMATION 1. Is the patient on Coumadin? No 2. Is the patient on Pradaxa? No * Ancillary Services (Within 10 days (routine)) - Authorized Specialty Diagnoses / Procedures Referred By Gus ramirez Referred To Contact Gastroenterology Diagnoses Iron deficiency anemia due to chronic blood loss Raquel Edmond CRNP [address] [place] [address] Referral ID Status Reason Start Date Expiration Date Visits Requested Visits Authorized [id number] Authorized Ancillary Services Required 03/30/[phone] Question Answer Referral Priority Within 10 days (routine) Where should this appointment be scheduled? [facility] Comments ALERT: Do not order for pediatric patients (18 years or younger). Cancel off screen and order PEDS GASTROENTEROLOGY CONSULT (Type: 1 visit only-Evaluate and Treat) The following Pt. Instructions are available: - Gastro Colonoscopy Prep Instructions [[id number]] - Gastro Colonoscopy Prep Instructions (Tajik Version) [[id number]] Go to the Pt. Instructions section within the Visit Navigator to access. Colonoscopy ASGE Guidelines: Iron deficiency anemia ADDITIONAL INFORMATION 1. Is the patient on Coumadin? No 2. Is the patient on Pradaxa? No Reason for Visit * Reason Comments Follow Up * Evaluate & Treat - Unlimited Visits (Within 10 days (routine)) - Authorized Specialty Diagnoses / Procedures Referred By Contac t Referred To Contact Hematology/Oncology / Hematology Oncology Diagnoses Iron deficiency anemia, unspecified iron deficiency anemia type Maritza Lyles MD [address] [facility] [place] [address] Referral ID Status Reason Start Date Expiration Date Visits Requested Visits Authorized [id number] Authorized Specialty Services Required 02/16/[phone] Encounter Details Date Type Department Care Team (Late st Contact Info) Description 03/30/2024 1:00 PM EDT Office Visit Hematology/Oncology Ephraim Ware [place] [address] [facility] [place] [phone] Raquel Edmond CRNP [address] [place] [address] [place] [address] Iron deficiency anemia due to chronic blood loss*; Vitamin B12 deficiency Allergies No known active allergiesdocumented as of this encounter (statuses as of 04/07/2024) Medications Medication Sig Dispensed Refills Start Date [...] as of this encounter (statuses as of 04/07/2024) Active Problems Problem Noted Date Diagnosed Date [...] as of this encounter (statuses as of 04/07/2024) Immunizations Name Administration Dates Next Due Hepatitis B, 20+ yrs 11/16/2023,12/23/2022 Pneumococcal Conjugate Vacci ne, 20-valent ([id number]) 12/23/2022 Pneumococcal Polysaccharide PPV23 (Pneumovax) Seasonal Influenza, [...] Sign Reading Time Taken Comments Blood Pressure 128/77 03/30/2024 1:22 PM EDT Pulse 93 03/30/2024 1:22 PM EDT Temperature 36.1 C (97 F) 03/30/2024 1:22 PM EDT Respiratory Rate 17 03/30/2024 1:22 PM EDT Oxygen Saturation 95% 03/30/2024 1:22 PM EDT Inhaled Oxygen Concentration - - Weight 83.9 kg (185 lb) 03/30/2024 1:22 PM EDT Height - - Body Mass Index 34.39 03/29/2024 11:22 AM EDT documented in this encounter Progress Notes * Raquel Edmond CRNP - 03/30/2024 1:09 PM EDT Hematology/Oncology Outpatient Clinic note Reji Ware [address] [place] [address] Name: Taj Laura Date: 03/30/2024 REFERRED BY: Dr. Maritza Lyles CHIEF COMPLAINT: Taj Laura is a 58 year old female here today for new consultation for iron deficiency anemia. 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 Per patient request son assisted with translating during collection ofHPI. Patient with PMH of CAD, GERD, HLD, HTN and DM type II. Component Latest Ref Rng 10/04/2022 02/14/2024 WBC 4.00 - 10.80 K/uL 12.04 (H) 10.62 RBC 3.85 - 5.15 M/uL 4.88 4.51 HGB 12.0 - 15.3 g/dL 12.1 9.8 (L) HCT 36.0 - 45.2 % 38.0 33.7 (L) MCV 81.5 - 97.5 fL 77.9 74.7 MCH 27.0 - 34.0 pg 24.8 21.7 MCHC 32.0 - 36.0 g/dL 31.8 29.1 RDW 11.5 - 15.5 % 15.2 16.4 PLT 140 - 400 K/uL 407 (H) 404 (H) MPV 6.6 - 11.1 fL 9.9 10.6 Component Latest Ref Rng 02/14/2024 Ferritin 13 - 150 ng/mL 7 (L) Component Latest Ref Rng 02/14/2024 Iron 33 - 151 ug/dL 18 (L) Iron Binding Capacity 250 - 425 ug/dL 451 (H) Transferrin Saturation Percent 15 - 55 % 4 (L) Patient received two doses of IV Venofer one on 02/22 and one on 03/01/24. Patient states she feels improved since receiving iron infusions. Tolerated them well. Initial labs drawn for clearance for cataract surgery Currently taking oral iron supplement one tablet every day. Takes ferrous sulfate. Tolerates well. Last EGD and colonoscopy completed in 2020 and were WNL Patient denies night sweats, weight loss, abdominal pain, reflux, nausea, loss of appetite, changesin bowel habits, melena or hematochezia. Overall reports feeling well. Does take Prilosec 40 mg BID. Has taken for at least two years. Patient follows a vegetarian diet. Does it a lot of spicy foods. Patient is a nonsmoker and does not drink alcohol. Patient's past medical history, social history, and family history were reviewed and updated. Past Medical History: Diagnosis Date Coronary artery disease involving [place] coronary artery of [place] heart without angina pectoris NEELAM (generalized anxiety disorder) Gastroesophageal reflux disease without esophagitis Hyperlipidemia LDL goal <100 Primary hypertension Type 2 diabetes mellitus without complication, without long-term current use of insulin ([facility]) No family history on file. Social History Socioeconomic History Marital status: Spouse name: Not on file Number of children: Not on file Years of education: Not on file Highest education level: Not on file Occupational History Not on file Tobacco Use Smoking status: Never Smokeless tobacco: Never Vaping Use Vaping status: Never Used Substance and Sexual Activity Alcohol use: Never Drug use: Never Sexual activity: Not on file Other Topics Concern Not on file Social History Narrative Not on file Social Determinants of Health Financial Resource Strain: Not on file Food Insecurity: Not on file Transportation Needs: Not on file Social Connections: Unknown (03/06/2024) Social Connections How often do you feel lonely or isolated from those around you? (Adult - for ages 18 years and over): Not on file Housing Stability: Not on file Review of patient's allergies indicates: No Known Allergies Current Outpatient Medications Medication Sig Dispense Refill Aspirin 81 MG Oral Capsule at bedtime. metFORMIN HCl 500 MG Oral Tablet (Glucophage) Take 2 Tablets by mouth 2 times a day with morning and evening meals. 360 Tablet 3 Omeprazole 40 MG Oral Capsule Delayed Release (PriLOSEC) TAKE 1 CAPSULE BY MOUTH IN THE MORNING ANDBEFORE BEDTIME 180 Capsule 1 Losartan Potassium 50 MG Oral Tablet (Cozaar) TAKE 1 TABLET BY MOUTH EVERY DAY IN THE MORNING 90 Tablet 1 Metoprolol Succinate ER 25 MG Oral Tablet Extended Release 24 Hour (toPROL XL) Take 1 Tablet by mouth in the morning. 90 Tablet 3 Atorvastatin Calcium 80 MG Oral Tablet (Lipitor) TAKE 1 TABLET BY MOUTH EVERY DAY IN THE MORNING (Patient taking differently: Take 1 Tablet by mouth at bedtime.) 90 Tablet 3 Furosemide 20 MG Oral Tablet (Lasix) TAKE 1 TABLET BY MOUTH EVERY DAY IN THE MORNING 90 Tablet 3 prednisoLONE Acetate 1 % Ophthalmic Suspension (Pred Forte) Instill 1 Drop into the left eye in themorning and 1 Drop before bedtime. 10 mL 0 No current facility-administered medications for this visit. REVIEW OF SYSTEMS: SEE HPI - otherwise negative OBJECTIVE: Filed Vitals: 03/30/24 1322 BP: 128/77 Pulse: 93 Resp: 17 Temp: 36.1 C (97 F) TempSrc: Tympanic SpO2: 95% Weight: 83.9 kg (185 lb) Wt Readings from Last 5 Encounters: 03/07/24 84.4 kg (186 lb) 03/05/24 83.7 kg (184 lb 9.6 oz) 02/22/24 84.4 kg (186 lb) 02/09/24 84.4 kg (186 lb) 11/16/23 82.6 kg (182 lb 1.6 oz) PHYSICAL EXAM: Constitutional: no acute distress Neuro: alert, oriented to person, place, and time, gait normal HEENT: normal: normocephalic, atraumatic; neck with no masses or tenderness; no cervical/supraclavicular lymphadenopathy CV: normal rate and rhythm, no murmur Chest: normal respiratory effort, lungs clear to auscultation Abdomen: normal: soft, bowel sounds normal, no masses, tenderness or organomegaly Extremities: no edema Skin: warm and dry LABS: Component Latest Ref Rng 03/05/2024 WBC 4.00 - 10.80 K/uL 9.97 RBC 3.85 - 5.15 M/uL 4.90 HGB 12.0 - 15.3 g/dL 11.1 (L) HCT 36.0 - 45.2 % 37.4 MCV 81.5 - 97.5 fL 76.3 MCH 27.0 - 34.0 pg 22.7 MCHC 32.0 - 36.0 g/dL 29.7 RDW 11.5 - 15.5 % 21.0 PLT 140 - 400 K/uL 409 (H) MPV 6.6 - 11.1 fL 9.8 Component Latest Ref Rng 03/05/2024 Ferritin 13 - 150 ng/mL 311 (H) Component Latest Ref Rng 02/14/2024 Vitamin B12 232 - 1,245 pg/mL 298 IMPRESSION: Iron deficiency anemia: 58 y/o female with PMH of CAD, GERD, HLD, HTN and DM type II. Patient had labs drawn for cataract surgery clearance on 02/14/24 revealing a new onset MILEY with Hgb9.8, MCV 74.7, ferritin 7 and TSAT 4%. Hgb last normal on 10/04/22. Patient received two doses of IV Venofer one on 02/22 and one on 03/01/24. Patient states she feels improved since receiving iron infusions. Tolerated them well. Lab work repeated on 03/05/24 showing Hgb improved at 11.1 and ferritin 311. Currently taking oral iron supplement one tablet every day. Takes ferrous sulfate. Tolerates well. Last EGD and colonoscopy completed in 2020 and were WNL Patient denies night sweats, weight loss, abdominal pain, reflux, nausea, loss of appetite, changesin bowel habits, melena or hematochezia. Overall reports feeling well. Does take Prilosec 40 mg BID. Has taken for at least two years. Patient follows a vegetarian diet. Does it a lot of spicy foods. Patient is a nonsmoker and does not drink alcohol. PLAN: Cause of iron deficiency anemia likely multifactorial including high dose PPI and vegetarian diet. Continue oral iron supplement as currently taking. Will update lab work today including CBCd, ferritin, and iron screen. Further recommendations based on results. Will consider for further IV iron therapy. Order placed for colonoscopy and EGD for further evaluation. If GI endoscopic work up negative will consider for GI referral Vitamin B12 also found to be on low end of normal at 298. Recommend patient starting sublingual vitamin b12 supplement RTC in three months with provider with cbc/diff, iron screen, ferritin and vitamin b12 NICCI Cm documented in this encounter Nursing Notes * Leticia Funk MED ASSIST - 03/30/2024 1:22 PM EDT Patient identifed by name and birthdate Do you have any concerns about pain management for today's visit? Yes. Patient instructed to discuss pain concerns with provider during the visit today Living Will or Advance Directive for Health Care as noted on the problem list. [facility] is a way you can talk to your provider on line through e-mail. Would you like to sign up? I can activate it for you? ALREADY ACTIVE Filed Vitals: 03/30/24 1322 BP: 128/77 Pulse: 93 Resp: 17 Temp: 36.1 C (97 F) TempSrc: Tympanic SpO2: 95% Weight: 83.9 kg (185 lb) Patient was instructed to not get up on the exam table/exam chair until directed and assisted by their provider; patient is to remain seated in the chair/ wheelchair/ exam table/ exam chair for fall prevention and safety reasons. Patient is aware to have assistance to step down off exam table/exam chair with personnel. Patient voiced full comprehension of instructions. documented in this encounter Plan of Treatment Upcoming Encounters Date Type Department Care Team (Late st Contact Info) Description 04/13/2024 1:00 PM EDT Hem/Onc Treatment Hematology/Oncolog y Treatment, [place] [address] [place] [phone] [place], Chair 2 Hem Onc Scenery [address] [place] [address] 07/02/2024 3:00 PM EDT Laboratory Laboratory Scenery Jeanie [place] [address] [place] [phone] [place], Lab Scenery [address] [place] [address] 07/02/2024 3:30 PM EDT Office Visit Hematology/Oncolog y [facility] [address] [place], [place] [phone] Raquel Edmond CRNP [address] [place] [address] 07/05/2024 7:30 AM EDT Office Visit Ophthalmology, [facility] [address] [place] [address] Cameron Molina, DO [address] [facility] [address] [place] [address] 09/11/2024 1:30 PM EST Hospital Encounter ENDO [facility], Endoscopy Room [facility] [address] [place] [phone] Maya Quiñones DO [address] [place] [address] 09/11/2024 1:30 PM EST - 09/11/2024 2:30 PM EST Surgery ENDO [facility], Endoscopy Room [facility] [address] [place] [phone] Maya Quiñones DO [address] [place] [address] COLONOSCOPY FLEXIBLE PROXIMAL DIAGNOSTIC 03/29/2025 4:30 PM EDT Imaging Radiology [address] [place] [address] Scheduled Orders Name Type Priority Associated Diagnoses Orde r Schedule CBC WITH WBC DIFFERENTIAL Lab STAT Iron deficiency anemia due to chronic blood loss Every Month for 3 Occurrences starting 04/07/2024 until 10/01/2024 IRON SCREEN, INCLUDING TIBC Lab STAT Iron deficiency anemia due to chronic blood loss Every Month for 3 Occurrences starting 04/07/2024 until 10/01/2024 FERRITIN Lab STAT Iron deficiency anemia due to chronic blood loss Every Month for 3 Occurrences starting 04/07/2024 until 10/01/2024 VITAMIN B12 Lab STAT Vitamin B12 deficiency Expected: 07/08/2024, Expires: 10/08/2024 Scheduled Procedures Name Priority Associated Diagnoses Date/Ti me COLONOSCOPY FLEXIBLE PROXIMA L DIAGNOSTIC Recall Screen for colon cancer Anemia, unspecified type 09/11/2024 1:30 PM EST ESOPHAGOGASTRODUODENOSCOPY ( EGD), FLEXIBLE, TRANSORAL, DIAGNOSTIC Recall Screen for colon cancer Anemia, unspecified type 09/11/2024 1:30 PM EST Scheduled Referrals Name Type Priority Associated Diagnoses Orde r Schedule COLONOSCOPY, GI REFERRAL OP Referral Within 10 days (routine) Iron deficiency anemia due to chronic blood loss Ordered: 03/30/2024 UPPER ENDOSCOPY GI REFERRAL OP Referral Within 10 days (routine) Iron deficiency anemia due to chronic blood loss Ordered: 03/30/2024 Health Maintenance Due Date Last Done Comments [...] this encounter Medical Devices Implanted Type Area Malariologist Device Identifier Shelf Expiration Date Model / Serial / Lot Lens [id number] 12.5mm+20.00 - [id number] - [id number] Implanted:Qty: 1 on 03/07/2024 by Cameron Molina DO at OR [facility] Left: Eye [employer] 10/19/2026 [id number] / [id number] / [id number] Lens [id number] 12.5mm+22.00 - [id number] - [id number] Implanted:Qty: 1 on 04/04/2024 by Cameron Molina DO at OR [facility] Right: Eye [employer] 07/19/2026 [id number] / [id number] / [id number] documented as of this encounter Results * FERRITIN (03/30/2024 1:57 PM EDT) Pathologist [facility] Ferritin 79 13 - 150 ng/mL 03/31/2024 2:03 AM EDT LABORATORY [facility] Comment:Postmenopausal women have higher ferritin levels than pre-menopausal women. The above reference interval is based on pre-menopausal women. Blood Venous blood specimen / Unknown Venipuncture / Unknown 03/30/2024 1:57 PM EDT 03/30/2024 1:57 PM EDT Raquel GRAJEDA LAB BLOOD ORDER USAMA Performing Organization Address City/[facility]/ZIP Co de Phone Number LABORATORY [facility] [address] [place] [address] * (ABNORMAL) IRON SCREEN, INCLUDING TIBC (03/30/2024 1:57 PM EDT) Iron 32(L) 33 - 151 ug/dL 03/31/2024 1:31 AM EDT LABORATORY [facility] Iron Binding Capacity 367 250 - 425 ug/dL 03/31/2024 1:31 AM EDT [facility]ORY [facility] Transferrin Saturation Percent 9(L) 15 - 55 % 03/31/2024 1:31 AM EDT LABORATORY C Blood Venous blood specimen / Unknown Venipuncture / Unknown 03/30/2024 1:57 PM EDT 03/30/2024 1:57 PM EDT Raquel GRAJEDA LAB BLOOD ORDER USAMA Performing Organization Address [facility] Co de Phone Number LABORATORY [facility] [address] [place] [address] documented in this encounter Visit Diagnoses Diagnosis Iron deficiency anemia due to chronic blood loss- Primary Iron deficiency anemia secondary to blood loss (chronic) Vitamin B12 deficiency Other B-complex deficiencies Screen for colon cancer Special screening for [...] Discussed due to patient's condition Care Teams Sweep Press Operator Relationship Specialty Start Date End Date Maritza Lyles MD [address] [facility] [place] [address] PCP - General Internal Medicine 10/03/20 documented as of this encounter
--- OUTSIDE RECORDS SUMMARY | 2024-05-01 07:35 | External Medical Summary | Summary of Care ---
Author Name Unknown Organization [facility] Address [address] [address] Phone [phone] Care Team Providers Care Telephone Solicitor Supervisor Name Role Phone Maritza Lyles MD Primary Care Provider + Reason for Visit * Auth/Cert Specialty Diagnoses / Procedures Referred By Gus ramirez Referred To Contact Diagnoses Cataract Cataract [H26.9] Procedures REMOVE CATARACT, INSERT LENS PROSTH RIGHT EXTRACAPSULAR CATARACT REMOVAL WITH INTRAOCULAR LENS Cameron Molina DO [address] [address] [facility] [address] [place] [place] [address] Referral ID Status Reason Start Date Expiration Date Visits Re quested Visits Authorized [id number] Encounter Details Date Type Department Care Team (Late st Contact Info) Description 04/04/2024 11:29 AM EDT - 04/04/2024 1:56 PM EDT Hospital Encounter [facility], Operating Room [facility] [address] [place] [address] Cameron Molina DO [address] [address] Discharge Disposition: Home - Self Care Allergies No known active allergiesdocumented as of [...] yrs 11/16/2023,12/23/2022 Pneumococcal Conjugate Vacci ne, 20-valent ([id number]) 12/23/2022 Pneumococcal Polysaccharide PPV23 (Pneumovax) Seasonal Influenza, [...] Sign Reading Time Taken Comments Blood Pressure 120/64 04/04/2024 1:40 PM EDT Pulse 76 04/04/2024 1:40 PM EDT Temperature 36.2 C (97.1 F) 04/04/2024 1:11 PM ED T Respiratory Rate 20 04/04/2024 1:40 PM EDT Oxygen Saturation 98% 04/04/2024 1:40 PM EDT Inhaled Oxygen Concentration - - Weight 84.4 kg (186 lb) 04/04/2024 11:54 AM EDT Height 156.2 cm (5' 1.5") 04/04/2024 11:54 AM ED T Body Mass Index 34.58 04/04/2024 11:54 AM EDT documented in this encounter Discharge Instructions * Discharge Instr - AVS* Cameron Molina, - 04/04/2024 1:09 PM EDT Discharge Date: 04/04/24 Check your Patient Education Brochure for further information. If you have any further questions orconcerns after discharge and before 4:00 p.m. please contact your surgeons (Dr. Cameron Molina) office at [phone]. This is the [place] office and during the day it will give you an opportunity to talk to our ophthalmology preflight mechanic. After 4:00 p.m. or on the weekend, call the [facility] at ([phone]) and ask for the senior director of strategy diabetes education coordinator. Please let the senior director of strategy diabetes education coordinator know you had surgery with Dr. Molina and they will get in touch with Dr. Molina. Go to the Emergency Room if you feel the situation is an emergency. If you present to another facility's emergency room, please call and inform your surgeon's office at the phone number provided above. The information below provides you with the instructions and the list of medications you need to betaking following discharge from the hospital. If you have any questions, please ask before leaving.Please carry this letter with you when you see your doctor in the clinic. If you have questions, you can reach us at the numbers above. Diet: Start with clear liquids (jello, tea, apple juice), avoid dairy products (milk, cheese, pudding, ice cream) and fried, greasy foods. Progress to prescribed diet as tolerated. If nausea should occur, have clear liquids only until soft foods can be tolerated. Activity: A responsible adult must be with the patient for 24 hours after surgery. Rest today and tomorrow, and then increase activity as tolerated. DO NOT drive, operate any appliances and/or machinery or sign legal documents for 24 hours. DO NOT touch or rub the operative eye. Keep shield in place except to place eyedrops. Sleep with eyeshield in place. Eye Drops: Begin eyedrops when arrive home Moxifloxacin: One Drop to right eye 4 times per day Prednisolone acetate (shake well): One Drop to right eye 4 times per day Erythromycin ophthalmic ointment - Instill at bedtime or as needed for pain/discomfort right eye Please use the Moxifloxacin drop first followed by the prednisolone drop. Shake the prednisolone 10-15 times prior to use. Wait at least 5 minutes between eyedrops. Please use your eyedrops first thing in morning prior to postoperative day 1 visit. Pain Contol: Tylenol extra-strength 1 tablet every 4 hours as needed for pain. Warnings: Call your surgeon promptly in case of: A. Pain that is not relieved by the medicine you were told to take (surface irritation and burning is common and not a concern) B. Swelling or pus-like drainage C. Persistent nausea and vomiting D. Other Questions or concerns Special Instructions: A. Do not lift heavy objects or bend until appointment tomorrow. B. If you have burning or scratchy sensation, it is okay to use the ophthalmic ointment In the blue kit - apply 1/4 inch into the gutter created by pulling lower eyelid down. Other Instructions/follow-up: A. A follow-up appointment has been made for you tomorrow, at the Eye clinic in the [facility] on the second floor. Please show up at your scheduled appointment time. B. Please Bring the blue bag with both eyedrops with you to post-op visit tomorrow. documented in this encounter Progress Notes * Cameron Molina DO - 04/04/2024 1:09 PM EDT [facility] [address] [place] [address] OUTPATIENT SURGERY DISCHARGE SUMMARY NOTE Name: Taj Laura Location: OR [facility]/OR Date: 04/04/2024 Time: 1:09 PM Surgery Date: 04/04/2024 Procedure: RIGHT EXTRACAPSULAR CATARACT REMOVAL WITH INTRAOCULAR LENS Right Surgeon: Cameron Molina DO Discharge Diagnosis: Same After examination of this patient, I have determined she is ready for discharge to home when the patient meets criteria. Discharge instructions were given to the patient. documented in this encounter H&P Notes * Cameron Molina DO - 04/04/2024 12:26 PM EDT HISTORY & PHYSICAL INTERVAL NOTE [facility] [address] [address] History and Physical Update: Name: Taj Laura Location: OR [facility]/OR Date: 04/04/2024 Time: 12:26 PM DATE OF HISTORY AND PHYSICAL: 04/04/24 BP: 148 mmHg/84 mmHg (04/04/24 1145) Pulse: 83 (04/04/24 1145) Resp: 16 (04/04/24 1145) Temp: 36.11 C (04/04/24 1145) Temp Summary: Temp Min: 36.1 C (97 F) Max: 36.1 C (97 F) SpO2: O2 flow rate: Supplemental O2 Delivery: Heart Exam: regular rate and rhythm Lung Exam: clear to auscultation bilaterally Other Pertinent Physical Exam: no eye changes I have reviewed the H&P previously performed and examined the patient today. There are no new findings noted. * Cameron Moilna DO - 04/04/2024 12:25 PM EDT HISTORY & PHYSICAL EXAMINATION - Ophthalmology [facility] [address] [place] [address] Name: Taj Laura Location: [facility]/OR Date: 04/04/2024 Time: 12:25 PM PRESENTING PROBLEM: Cataract, right eye Corneal suture, left eye HISTORY OF PRESENT ILLNESS: Taj is a 58 year old female who presents for cataract extraction with implant, right eye and corneal suture removal, left eye PAST MEDICAL HISTORY: Past Medical History: Diagnosis Date Coronary artery disease involving [place] coronary artery of [place] heart without angina pectoris NEELAM (generalized anxiety disorder) Gastroesophageal reflux disease without esophagitis Hyperlipidemia LDL goal <100 Primary hypertension Type 2 diabetes mellitus without complication, without long-term current use of insulin (HCC) PAST SURGICAL HISTORY: Past Surgical History: Procedure Laterality Date COLONOSCOPY, DIAGNOSTIC (RECTUM) 10/08/2020 normal, repeat 10 yrs / COLONOSCOPY FLEXIBLE PROXIMAL DIAGNOSTIC performed by Khushi Interiano MD at ENDOSCOPY [facility] EGD, FLEXIBLE, DIAGNOSTIC 08/03/2021 duodenitis, gastriti, + H pylori / ESOPHAGOGASTRODUODENOSCOPY (EGD), FLEXIBLE, TRANSORAL, DIAGNOSTIC performed by Khushi Interiano MD at ENDOSCOPY [facility] LENS EXTRACTION, PHACOFRAGMENTATION Left 03/07/2024 Dr. Molina REMOVE CATARACT, INSERT LENS PROSTH Left 03/07/2024 LEFT EXTRACAPSULAR CATARACT REMOVAL WITH INTRAOCULAR LENS performed by Cameron Molina DO at OR [facility] FAMILY HISTORY: No family history on file. SOCIAL HISTORY: Social History Tobacco Use Smoking status: Never Smokeless tobacco: Never Vaping Use Vaping status: Never Used Substance Use Topics Alcohol use: Never Drug use: Never CURRENT HOSPITAL MEDICATIONS: Note that completed medications (per the MAR) continue to display for 24 hours. Ordered medicationsto be given in the future also display. Current Facility-Administered Medications Medication Dose Route Frequency Provider isolyte-S pH 7.4 infusion Intravenous Continuous Cameron Molina DO ALLERGIES: Patient has no known allergies. REVIEW OF SYSTEMS: no recent significant change in vision, no eye pain, redness, discharge, and no diplopia PHYSICAL EXAMINATION: Head: normocephalic / atraumatic Ears: hearing intact to voice Nose: nares clear Throat: throat normal Respiratory: CTA Neck: clear Cardiovascular: normal S1 S2 Abdomen: obese Extremities: trace edema Neurologic: grossly intact Mental Status/Communication: within range of normal variation Physical Disabilities: none IMPRESSION: Cataract, right eye PLAN: 1. Cataract extraction with implant, right eye and corneal suture removal, left eye 2. IN & OUT surgery 3. F/u 1 day post operatively in office 4. Instructions to be given in post op recovery area This H&P is intended for pre-operative clearance. documented in this encounter Nursing Notes * Lucero Garcias RN - 04/04/2024 1:55 PM EDT Patient is alert, pain free, eye shield intact to R eye and tolerating po fluids prior to discharge. Patient has been visited by Dr. Molina. Patient and daughter received and demonstrates understandingof discharge instructions. Patient is transported via w/c to private auto accompanied by family and staff. * Lucero Garcias RN - 04/04/2024 1:[address] Molina spoke with pt. * Lucero Garcias RN - 04/04/2024 1:11 PM EDT Pt received PACU II awake, denies pain, eye shield intact to R eye, taking juice and retaining. documented in this encounter OR Notes * OR Surgeon - Cameron Molina DO - 04/04/2024 1:09 PM EDT [facility] [address] [address] OPERATIVE REPORT Name: Taj Laura Date: 04/04/2024 Time: 1:09 PM Service: Ophthalmology Date of Operation: 04/04/2024 Pre-op Diagnosis: Loose Corneal suture, left eye 2. Nuclear age related Cataract Right eye Post-op Diagnosis: Loose Corneal suture, left eye 2. Nuclear age related Cataract Right eye Surgeon: Cameron Molina DO Assistants: None Anesthesia: Monitored Local Anesthesia with Sedation Operation: Removal of corneal suture, left eye Cataract extraction to the Right eye with implantation of posterior intraocular lens. Findings: None Estimated Blood Loss: minimal IV Intake:<100 ml Urine output: 0 ml Drains: 0 INDICATIONS AND PERTINENT HISTORY: The patient has a visually significant cataract of the Right eye. The proposed procedure was discussed in detail with the patient. All feasible options were reviewed with the appropriate indications and expected outcomes. Specimens and Disposition: None Complications: none Condition: Stable Description of Operation: The patient was identified with two identifiers and the procedure verified. Proper consent was verified. Antibiotic and dilating drops were instilled in the right eye pre-operatively in the Pre-operative holding area. Fifteen minutes prior to transfer to the Operating Room, topical proparacaine drops and topical 2% lidocaine jelly were placed over the right eye. The patient was then taken back tothe Operating Room. Ophthalmic Betadine 5% was placed in the superior and inferior cul-de-sacs of both eyes. A lid speculum was placed in the left eye. A drop of tetracaine was placed. Using a 30G needle tip,the corneal suture was loosened at 3 o'clock. Using a forcep, it was then removed without complication. Vigamox drops were placed. The right eye was then prepped with 10% povidone-iodine and draped in the usual sterile fashion. After the lid speculum was inserted, a paracentesis incision was made at the 11 o'clock position with a sharp blade. MPF lidocaine was instilled. The anterior chamber was then refilled with Viscoat. Themain wound was then created at 9' using the 2.4mm phacokeratome blade. A continuous curvilinear capsulorrhexis was then performed initially with a cystotome, then completed with Utrada forceps. Hydrodissection and hydrodelineation were achieved with balanced salt solution through a 27G cannula. The phacoemulsification handpiece was utilized to remove the lens nucleus with a [id number] technique. Residual cortical material was removed with the irrigating and aspirating device. The capsular bag was re-formed with viscoelastic. An [id number] 22.0 diopters in power (selected after review and in terpretation of IOL measurements), acrylic foldable lens was placed into the capsular bag uneventfully and rotated into position with a Sinskey hook. It was noted to be in a central and stable position. The residual viscoelastic was irrigated and aspirated from the anterior chamber. Stromal hydration was applied to the wound. The anterior chamber was re-formed with balanced salt solution. The wounds were checked with Weck-cels and found to be watertight. The lid speculum was then removed. Brimonidine, prednisolone acetate, ocuflox drops and erythromycin oph ointment were instilled in the eye.The patient tolerated the procedure well. There were no complications I performed the procedure Cameron Molina DO 04/04/2024 1:09 PM documented in this encounter Plan of Treatment Upcoming Encounters Date Type Department Care Team (Late st Contact Info) Description 04/05/2024 9:00 AM EDT [facility] Visit [facility], [facility] [address] [address] Cameron Molina DO [address] [address] 04/12/2024 9:30 AM EDT Office Visit Ophthalmology, [address] [place] [address] Cameron Molina DO [address] [address] 05/03/2024 3:45 PM EDT Office Visit Ophthalmology [address] [place] [address] Cameron Molina DO [address] [address] 07/02/2024 3:00 PM EDT Laboratory Laboratory [facility] [place] [address] [place] [id number] Jeanie Lab [facility] [address] [place] [address] 07/02/2024 3:30 PM EDT Office Visit Hematology/Oncology [facility] [place] [address] [place] [address] Rauqel Edmond CRNP [address] [place] [address] 03/29/2025 4:30 PM EDT Imaging Radiology [facility] [address] [facility], [place] [address] [place] [address] Scheduled Orders Name Type Priority Associated Diagnoses Orde r Schedule GLUCOSE METER, POINT OF CARE (COMMUNICATION ORDER) Point of Care Testing Routine As Needed until discontinued starting 04/04/2024 Scheduled Procedures Name Priority Associated Diagnoses Date/Ti me COLONOSCOPY FLEXIBLE PROXIMAL DIAGNOSTIC Recall Screen for colon cancer Health Maintenance Due Date Last Done Comments [...] this encounter Medical Devices Implanted Type Area Boxer Operator Device Identifier Shelf Expiration Date Model / Serial / Lot Lens [id number] 12.5mm+20.00 - [id number] - [id number] Implanted:Qty: 1 on 03/07/2024 by Cameron Molina DO at OR [facility] Left: Eye [employer] 10/19/2026 [id number] / [id number] / [id number] Lens [id number] 12.5mm+22.00 - [id number] - [id number] Implanted:Qty: 1 on 04/04/2024 by Cameron Molina DO at OR [facility] Right: Eye [employer] 07/19/2026 [id number] / [id number] / [id number] documented as of this encounter Procedures Procedure Name Priority Date/Time Associated Diagnosis Comments GLUCOSE METER, POINT OF CARE BLAKE 04/04/2024 11:48 AM EDT documented in this encounter Results * GLUCOSE METER, POINT OF CARE (04/04/2024 11:48 AM EDT) Glucose Meter 107 70 - 120 mg/dL 04/04/2024 12:11 PM EDT LABORATORY [facility] 57-00 Blood Whole blood specimen / Unknown 04/04/2024 11:48 AM EDT 04/04/2024 12:11 PM EDT Cameron Molina DO LAB POINT OF CARE TE ST DOCKED DEVICE UNSOLICITED RESULTS [facility] KNIGHT 57-00 [address] [place] [id number] documented in this encounter Visit Diagnoses Diagnosis Combined forms of age-related cataract of both eyes- Primary Other and combined forms of senile cataract Pseudophakia- Primary Lens replaced by other means Screening mammogram for breast cancer documented in this encounter Administered Medications Inactive Administered Medications - up to 3 most recent administrations Medication Order MAR Action Action Date Dose Rate Site Acetaminophen (Tylenol) tab 650 mg 650 mg, Oral, PRN Pain, Mild, Starting on Tue04/04/24 at 1318, Until Tue04/04/24 at 1757, For 1 dose, Maximum of 4 grams (4000 mg) per day., Post-op Diclofenac Sodium (Voltaren) 0.1 % ophthalmic solution 1 Drop 1 Drop, Right eye, Q5 MINUTES, First dose on Tue04/04/24 at 1215, Last dose on Tue04/04/24 at 1225, For 3 doses, PRE-OP: One drop to right eye every 5 minutes for 3 doses, Pre-Op Given 04/04/2024 12:07 PM EDT 1 Drop Given 04/04/2024 12:02 PM EDT 1 Drop Given 04/04/2024 11:57 AM EDT 1 Drop isolyte-S pH 7.4 infusion Intravenous, at 10 mL/hr, Plasma-LYTE 148, isolyte-S, and isolyte-S pH 7.4 are considered equivalent - including for MAR barcode scanning., CONTINUOUS, Starting on Tue04/04/24 at 1215, Until Tue04/04/24 at 1757, Pre-Op Continue from Pre-Op 04/04/2024 12:31 PM EDT 10 mL/hr New Bag 04/04/2024 12:05 PM EDT 10 mL/hr Lidocaine urethral/mucosal 2 % gel 2 mL Topical, ONCE, 1 dose, On Tue04/04/24 at 1215, 15 minutes prior to scheduled surgery time, apply 2 ml to superior and inferior fornices right eye & tape eyes shut., Pre-Op Given 04/04/2024 12:07 PM EDT 2 mL moxifloxacin (Vigamox) 0.5 % ophthalmic solution 1 Drop 1 Drop, Right eye, Q5 MINUTES, First dose on Tue04/04/24 at 1215, Last dose on Tue04/04/24 at 1225, For 3 doses, PRE-OP: One drop to right eye every 5 minutes for 3 doses, Pre-Op Given 04/04/2024 12:07 PM EDT 1 Drop Given 04/04/2024 12:02 PM EDT 1 Drop Given 04/04/2024 11:57 AM EDT 1 Drop prednisoLONE Acetate (Pred Forte) 1 % ophthalmic suspension 1 Drop 1 Drop, Right eye, Q5 MINUTES, First dose on Tue04/04/24 at 1215, Last dose on Tue04/04/24 at 1225, For 3 doses, PRE-OP: One drop to right eye every 5 minutes for 3 doses., Pre-Op Given 04/04/2024 12:07 PM EDT 1 Drop Given 04/04/2024 12:02 PM EDT 1 Drop Given 04/04/2024 11:57 AM EDT 1 Drop proparacaine (Alcaine) 0.5 % ophthalmic solution 1 Drop 1 Drop, Right eye, ONCE, On Tue04/04/24 at 1215, For 1 dose, PRE-OP: 15 minutes prior to scheduled surgery time for 1 dose, Pre-Op Given 04/04/2024 11:5 7 AM EDT 1 Drop tropicamide 1%-cyclopentolate 1%-phenylephrine 2.5% ophthalmic solution 1 Drop 1 Drop, Right eye, Q5 MINUTES, First dose on Tue04/04/24 at 1215, Last dose on Tue04/04/24 at 1225, For 3 doses Given 04/04/2024 12:07 PM EDT 1 Drop Given 04/04/2024 12:02 PM EDT 1 Drop Given 04/04/2024 11:57 AM EDT 1 Drop documented in this encounter Active and Recently Administered Medications Times are shown in EDT. Scheduled Medication Order 04/02/2024 04/03/2024 04/04/2024 Diclofenac Sodium (Voltaren) 0.1 % ophthalmic solution 1 Drop (COMPLETED) 1 Drop, Right eye, Q5 MINUTES, First dose on Tue04/04/24 at 1215, Last dose on Tue04/04/24 at 1225, For 3 doses, PRE-OP: One drop to right eye every 5 minutes for 3 doses, Pre-Op 1157 (Given - Provid er: Patti Edwards RN)1202 (Given - Provider: Patti Edwards RN)1207 (Given - Provider: Patti Edwards RN) Lidocaine urethral/mucosal 2 % gel 2 mL (COMPLETED) Topical, ONCE, 1 dose, On Tue04/04/24 at 1215, 15 minutes prior to scheduled surgery time, apply 2 ml to superior and inferior fornices right eye & tape eyes shut., Pre-Op 1207 (Given - Provid er: Patti Edwards RN) moxifloxacin (Vigamox) 0.5 % ophthalmic solution 1 Drop (COMPLETED) 1 Drop, Right eye, Q5 MINUTES, First dose on Tue04/04/24 at 1215, Last dose on Tue04/04/24 at 1225, For 3 doses, PRE-OP: One drop to right eye every 5 minutes for 3 doses, Pre-Op 1157 (Given - Provid er: Patti Edwards RN)1202 (Given - Provider: Patti Edwards RN)1207 (Given - Provider: Patti Edwards RN) prednisoLONE Acetate (Pred Forte) 1 % ophthalmic suspension 1 Drop (COMPLETED) 1 Drop, Right eye, Q5 MINUTES, First dose on Tue04/04/24 at 1215, Last dose on Tue04/04/24 at 1225, For 3 doses, PRE-OP: One drop to right eye every 5 minutes for 3 doses., Pre-Op 1157 (Given - Provid er: Patti Edwards RN)1202 (Given - Provider: Patti Edwards RN)1207 (Given - Provider: Patti Edwards RN) proparacaine (Alcaine) 0.5 % ophthalmic solution 1 Drop (COMPLETED) 1 Drop, Right eye, ONCE, On Tue04/04/24 at 1215, For 1 dose, PRE-OP: 15 minutes prior to scheduled surgery time for 1 dose, Pre-Op 1157 (Given - Provid er: Patti Edwards RN) tropicamide 1%-cyclopentolate 1%-phenylephrine 2.5% ophthalmic solution 1 Drop (COMPLETED) 1 Drop, Right eye, Q5 MINUTES, First dose on Tue04/04/24 at 1215, Last dose on Tue04/04/24 at 1225, For 3 doses 1157 (Given - Provid er: Patti Edwards RN)1202 (Given - Provider: Patti Edwards RN)1207 (Given - Provider: Patti Edwards RN) Continuous Medication Order 04/02/2024 04/03/2024 04/04/2024 isolyte-S pH 7.4 infusion Intravenous, at 10 mL/hr, Plasma-LYTE 148, isolyte-S, and isolyte-S pH 7.4 are considered equivalent - including for MAR barcode scanning., CONTINUOUS, Starting on Tue04/04/24 at 1215, Until Tue04/04/24 at 1757, Pre-Op 1205 (New Bag - Prov ider: Patti Edwards RN)1231 (Continue from Pre-Op - Provider: Mynor Lerma CRNA)1305 (Anes Intra-Op Fluid - Provider: Mynor Lerma CRNA) PRN Medication Order 04/02/2024 04/03/2024 04/04/2024 Acetaminophen (Tylenol) tab 650 mg 650 mg, Oral, PRN Pain, Mild, Starting on Tue04/04/24 at 1318, Until Tue04/04/24 at 1757, For 1 dose, Maximum of 4 grams (4000 mg) per day., Post-op briMONidine tartrate (Alphagan) 0.2 % ophthalmic solution (CANCELED) ONCE PRN INTRA PROCEDURE, Starting on Tue04/04/24 at 1254, Until Tue04/04/24 at 1307, Intra-Op 1254 (Given - Provid er: Cameron Molina DO) DUOVISC inj KIT (CANCELED) ONCE PRN INTRA PROCEDURE, Starting on Tue04/04/24 at 1254, Until Tue04/04/24 at 1307, Intra-Op 1254 (Given - Provid er: Cameron M Ensor, DO - Comment: qs) EPINEPHrine 0.5 mg in balanced salt solution 500 mL inj (CANCELED) ONCE PRN INTRA PROCEDURE, Starting on Tue04/04/24 at 1254, Until Tue04/04/24 at 1307, Intra-Op 1254 (Given - Provid er: Cameron Molina, DO - Comment: qs) Erythromycin ophthalmic ointment (CANCELED) ONCE PRN INTRA PROCEDURE, Starting on Tue04/04/24 at 1255, Until Tue04/04/24 at 1307, Intra-Op 1255 (Given - Provid er: Cameron Molina DO) hydroxypropyl methylcellulose (Ocucoat) 2 % intraocular inj (CANCELED) ONCE PRN INTRA PROCEDURE, Starting on Tue04/04/24 at 1255, Until Tue04/04/24 at 1307, Intra-Op 1255 (Given - Provid er: Cameron Molina DO - Comment: qs) Lidocaine 1 % (PF) inj (CANCELED) ONCE PRN INTRA PROCEDURE, Starting on Tue04/04/24 at 1255, Until Tue04/04/24 at 1307, Intra-Op 1255 (Given - Provid er: Cameron Molina, - Comment: qs) moxifloxacin (Vigamox) 0.5 % ophthalmic solution (CANCELED) ONCE PRN INTRA PROCEDURE, Starting on Tue04/04/24 at 1255, Until Tue04/04/24 at 1307, Intra-Op 1255 (Given - Provid er: Cameron Molina DO) prednisoLONE Acetate (Pred Forte) 1 % ophthalmic suspension (CANCELED) ONCE PRN INTRA PROCEDURE, Starting on Tue04/04/24 at 1256, Until Tue04/04/24 at 1307, Intra-Op 1256 (Given - Provid er: Cameron Molina DO) Tetracaine (Pontocaine) 0.5 % ophthalmic solution (CANCELED) ONCE PRN INTRA PROCEDURE, Starting on Tue04/04/24 at 1256, Until Tue04/04/24 at 1307, Intra-Op 1256 (Given - Provid er: Cameron Molina DO) documented in this encounter Advance Directives * [...] Discussed due to patient's condition Care Teams Telephone Solicitor Supervisor Relationship Specialty Start Date End Date Maritza Lyles MD [address] [place] [address] PCP - General Internal Medicine 10/03/20 documented as of this encounter
--- OUTSIDE RECORDS SUMMARY | 2024-05-01 07:35 | External Medical Summary | Summary of Care ---
Author Name Unknown Organization [facility] Address [address] [facility] [address] Phone [phone] Care Team Providers Care Solid Fiber Paster Operator Name Role Phone Maritza Lyles MD Primary Care Provider + Reason for Visit * Reason Comments Post Op Cataract Surgery 1 day post op r ight eye Encounter Details Date Type Department Care Team (Late st Contact Info) Description 04/05/2024 9:00 AM EDT Office Visit Ophthalmology, [facility] [address] [facility] [place] [address] Cameron Molina, DO 21 [facility] [place] [phone] Pseudophakia* Allergies No known active allergiesdocumented as of this encounter (statuses as of 04/05/2024) Medications Medication Sig Dispensed Refills Start Date End Date Status Aspirin 81 MG Oral Capsule at bedtime. 05/23/2021 Active metFORMIN HCl 500 MG Oral Tablet (Glucophage)Indica tions:Type 2 diabetes mellitus with hemoglobin A1c goal of less than 7.0% ([facility]) Take 2 Tablets by mouth 2 times [...] yrs 11/16/2023,12/23/2022 Pneumococcal Conjugate Vacci ne, 20-valent ([id number]) 12/23/2022 Pneumococcal Polysaccharide PPV23 (Pneumovax) Seasonal Influenza, [...] encounter Progress Notes * Cameron Molina, - 04/05/2024 9:00 AM EDT 04/05/2024 [facility] Ophthalmology Post-operative Clinic Note HPI: Taj Laura is a 58 year old pt who presents to the eye clinic today for 1 day post-op CE PCIOLOD (Ensor TCC MX60E 22.0 04/04/2024) Bank Examiner: Yolande Black VAsc: 20/50 IOP: 19 mmhg LL: Normal Conjunctiva: Normal Cornea: CCI and paracentesis raudel negative, 1+ edema AC: 2+ c/f Iris: residual dilation Lens: PCIOL centered A/P: 1 day post op CE PCIOL OD (Ensor TCC MX60E 22.0 04/04/2024) Doing well today Raudel negative wounds Normal IOP Expected post operative inflammation is seen Reviewed eye drops: Vigamox QID Prednisolone QID Reviewed activity restrictions - no bending or lifting, no strenuous activity. Wear eye shield at bedtime. Call with flashes, floaters, dec vision eye pain. Advised of data processing consultant coverage for after hours/weekend emergencies. Left eye: Continue pred forte BID OS RTC 1 week or sooner prn. Cameron Molina DO 04/05/24 documented in this encounter Nursing Notes * Luanne Reece TECH - 04/05/2024 9:34 AM EDT Taj Laura presents for p/o check. Post operative day 1 procedure: ECCE w/IOL insertion Operative eye: RIGHT EYE Patient denies complaints Pt. presents w/o dressing. Are you taking the eye drops as directed? Yes. Pred Forte and Ofloxacin 1gtt 4 times daily in surgical eye Did you wear eye shield to bed, slept on unaffected side and avoid bending over and heavy lifting? Yes Va will be found in the ophth exam Bank Examiner #[id number] Name: Sofia documented in this encounter Plan of Treatment Upcoming Encounters Date Type Department Care Team (Late st Contact Info) Description 04/12/2024 9:30 AM EDT Office Visit Ophthalmology, [facility] 132 [facility] [place] [address] Cameron Molina, DO [place] [address] 05/03/2024 3:45 PM EDT Office Visit Ophthalmology, [facility] 132 [facility] [place] [address] Cameron Molina DO 21 [place] [address] 07/02/2024 3:00 PM EDT [facility] [address] [place] [address] [place], Lab Scenery [address] [place] [address] 07/02/2024 3:30 PM EDT Office Visit Hematology/Oncolog y Scenery [facility] [address] [place] [address] Raquel Edmond CRNP [address] [place] [address] 09/11/2024 1:30 PM EST Hospital Encounter [facility]O [facility] [address] [place] [address] Maya Quiñones DO [address] [place] [address] 09/11/2024 1:30 PM EST - 09/11/2024 2:30 PM EST Surgery [facility] [address] [place] [phone] Maya Quiñones DO [address] [place] [address] COLONOSCOPY FLEXIBLE PROXIMAL DIAGNOSTIC 03/29/2025 4:30 PM EDT Imaging Radiology [address] [place] [address] Scheduled Procedures Name Priority Associated Diagnoses Date/Ti [...] this encounter Medical Devices Implanted Type Area Translator And Interpreter Device Identifier Shelf Expiration Date Model / Serial / Lot Lens [id number] 12.5mm+20.00 - [id number] - [id number] Implanted:Qty: 1 on 03/07/2024 by Ensor, Cameron M, DO at OR [facility] Left: Eye BAUSCH & LOMB 10/19/2026 [id number] / [id number] / [id number] Lens [id number] 12.5mm+22.00 - [id number] - [id number] Implanted:Qty: 1 on 04/04/2024 by Cameron Molina, DO [facility] Right: Eye BAUSCH & LOMB 07/19/2026 [id number] / [id number] / [id number] documented as of this encounter Visit Diagnoses [...] Discussed due to patient's condition Care Teams Solid Fiber Paster Operator Relationship Specialty Start Date End Date Maritza Lyles MD [address] [place], [place] [address] PCP - General Internal Medicine 10/03/20 documented as of this encounter
--- OUTSIDE RECORDS SUMMARY | 2024-05-01 07:35 | External Medical Summary | Summary of Care ---
Author Name Unknown Organization [facility] Address [address] [place] [facility] [place] [address] Phone [phone] Care Team Providers Care Wrapper Caser Name Role Phone Maritza Lyles MD Primary Care Provider + Reason for Visit * Reason Onset Date Comments Appointment 03/30/2024 Encounter Details Date Type Department Care Team (Late st Contact Info) Description 03/30/2024 Telephone Hematology/Oncology [facility] [place] 200 [facility] [address] Iker Edmond CRNP 400 [place] [address] Appointment Allergies No known active allergiesdocumented as of this encounter (statuses as of 04/05/2024) Medications Medication Sig Dispensed Refills Start Date End Date Status Aspirin 81 MG Oral Capsule at bedtime. 05/23/2021 Active metFORMIN HCl 500 MG Oral Tablet (Glucophage)Indica tions:Type 2 diabetes mellitus with hemoglobin A1c goal of less than 7.0% ([facility]) Take 2 Tablets by mouth 2 times [...] yrs 11/16/2023,12/23/2022 Pneumococcal Conjugate Vacci ne, 20-valent (Cbxbzaz69) 12/23/2022 Pneumococcal Polysaccharide PPV23 (Pneumovax) Seasonal Influenza, [...] encounter Miscellaneous Notes * Telephone Encounter - Flavia Cruz OSA - 04/05/2024 9:40 AM EDT Called though engineering leader line and daughter in law spoke German. Asked if pt wanted to have colonoscopy tomorrow. And daughter in law hung up and did not get a number to call back. Calling back. * Telephone Encounter - Maya Vasquez OSA - 03/30/2024 1:57 PM EDT Patient Demographics for EDITA LAURA [[id number]] date: 1965 SSN: [id number] Age: 58 yrs Sex: Female Home phone: Work phone: Address: [address] [facility] [address] E-mail: [email or web address] Permanent comments: Rag Sorter And Cutter needed Referral Information Patient: Edita Laura [[id number]] Referral ID: [id number] Status: Authorized Type: Ancillary Services Class: Internal Reason(s): Ancillary Services Required [] Diagnosis: D50.0 (ICD-10-CM) - Iron deficiency anemia due to chronic blood loss Procedure(s): LPTK522 - COLONOSCOPY, GI REFERRAL OP Start: Mar 30, 2024 Expiration: Requested: 999 Authorized: 999 Scheduled: Completed: Authorization #: Precertification #: Referring Provider: IKER EDMOND Ref to Dept Specialty: Referred to Provider: Ref to Prov Specialty: Gastroenterology Referral Priority: Within 10 days (routine) Coverages Used Pt Covered? Payor Plan Auth # Precert # Authorization Comments Covered [employer]HP COMMERCIAL GHP ScannxPLACE PREMIER HMO XC-Q1 Patient Demographics for EDITA LAURA [[id number]] date: 1965 SSN: [id number] Age: 58 yrs Sex: Female Home phone: Work phone: Address: [address] [place] [phone] E-mail: [email or web address] Permanent comments: Rag Sorter And Cutter needed Referral Information Patient: Edita Laura [[id number]] Referral ID: [id number] Status: Authorized Type: Ancillary Services Class: Internal Reason(s): Ancillary Services Required [] Diagnosis: D50.0 (ICD-10-CM) - Iron deficiency anemia due to chronic blood loss Procedure(s): QUJN988 - UPPER ENDOSCOPY GI REFERRAL OP Start: Mar 30, 2024 Expiration: Requested: 999 Authorized: 999 Scheduled: Completed: Authorization #: Precertification #: Referring Provider: IKER EDMOND Ref to Dept Specialty: Referred to Provider: Ref to Prov Specialty: Gastroenterology Referral Priority: Within 10 days (routine) Coverages Used Pt Covered? Payor Plan Auth # Precert # Authorization Comments Covered [employer] COMMERCIAL GHP MARKET[employer] PREMIER HMO XC-Q1 documented in this encounter Plan of Treatment Upcoming Encounters Date Type Department Care Team (Late st Contact Info) Description 04/12/2024 9:30 AM EDT Office Visit Ophthalmology, [facility] [place] [place] [address] Cameron Molina, DO [address] [facility] [place] [address] 05/03/2024 3:45 PM EDT Office Visit Ophthalmology, [facility] 132 [facility] [place] [address] Cameron Molina, DO [address] [facility] [place] [address] 07/02/2024 3:00 PM EDT Laboratory Laboratory [facility] [address] [place] [phone] Jeanie, Lab Scenery [address] [place] [address] 07/02/2024 3:30 PM EDT Office Visit Hematology/Oncolog y [facility] [address] [place], [place] [phone] Iker Edmond CRNP [address] [place] [address] [place] [address] 09/11/2024 1:30 PM EST Hospital Encounter ENDO [facility], Endoscopy Room [facility] 132 [facility] [place] [phone] Maya Quiñones, [address] [place] [address] 09/11/2024 1:30 PM EST - 09/11/2024 2:30 PM EST Surgery ENDO [facility], Endoscopy Room [facility] [address] [place] [phone] Maya Quiñones DO [address] [place] [address] COLONOSCOPY FLEXIBLE PROXIMAL DIAGNOSTIC 03/29/2025 4:30 PM EDT Imaging Radiology [address] [place] [address] Scheduled Procedures Name Priority Associated Diagnoses Date/Ti [...] Blood Test 2009 Sigmoidoscopy 2009 COVID-19 Vaccine (2022- season) 2023 12/23/2020, 12/02/2020 Albumin/Creatinine Ratio 10/04/2023 [...] this encounter Medical Devices Implanted Type Area Carton Stenciler Device Identifier Shelf Expiration Date Model / Serial / Lot Lens [id number] 12.5mm+20.00 - [id number] - [id number] Implanted:Qty: 1 on 03/07/2024 by Cameron Molina DO at OR [facility] Left: Eye BAUSCH & LOMB 10/19/2026 [id number] / [id number] / [id number] Lens [id number] 12.5mm+22.00 - [id number] - [id number] Implanted:Qty: 1 on 04/04/2024 by Cameron Molina DO at OR [facility] Right: Eye BAUSCH & LOMB 07/19/2026 [id number] / [id number] / [id number] documented as of this encounter Advance Directives * Full Code [...] Discussed due to patient's condition Care Teams Wrapper Caser Relationship Specialty Start Date End Date Maritza Lyles MD 200 [place] [address] PCP - General Internal Medicine 10/03/20 documented as of this encounter
--- OUTSIDE RECORDS SUMMARY | 2024-05-01 07:35 | External Medical Summary | Summary of Care ---
Author Name Unknown Organization [facility] Address [address] [place] [address] Phone [phone] Care Team Providers Care Veneer Redrier Name Role Phone Maritza Lyles MD Primary Care Provider + Encounter Details Date Type Department Care Team (Late st Contact Info) Description 04/02/2024 Telephone Hematology/Oncology, [facility] [address] [place] [address] Raquel Edmond CRNP [address] [place] [address] Allergies No known active allergiesdocumented as of this encounter (statuses as of 04/05/2024) Medications Medication Sig Dispensed Refills Start Date End Date Status Aspirin 81 MG Oral Capsule at bedtime. 05/23/2021 Active metFORMIN HCl 500 MG Oral Tablet (Glucophage)Indica tions:Type 2 diabetes mellitus with hemoglobin A1c goal of less than 7.0% ([facility]) Take 2 Tablets by mouth 2 times [...] yrs 11/16/2023,12/23/2022 Pneumococcal Conjugate Vacci ne, 20-valent (Nyfozls85) 12/23/2022 Pneumococcal Polysaccharide PPV23 (Pneumovax) Seasonal Influenza, [...] encounter Miscellaneous Notes * Telephone Encounter - Lazara Ralph RN - 04/05/2024 8:42 AM EDT Patient did not read MyG. Called and spoke to patients daughter- she will ask her mom to check portal message. Scheduling: if patient/ daughter call in, ok to schedule 3 hour appt "infyogesh" (Raquel). Thanks! * Telephone Encounter - Lazara Ralph RN - 04/03/2024 10:03 AM EDT [place] plan for infed built and routed for [...] 04/12/2024 9:30 AM EDT Office Visit Ophthalmology, [facility] 132 [facility] [place] [address] Cameron Molina, DO [address] [place] [address] 05/03/2024 3:45 PM EDT Office Visit Ophthalmology, [facility] [address] [place] [address] sherif Cameron Castorena, DO [address] [place] [address] 07/02/2024 3:00 PM EDT Laboratory Laboratory [facility] [address] [place] [phone] [place], [facility] [address] [place] [address] 07/02/2024 3:30 PM EDT Office Visit Hematology/Oncolog y [facility] [address] [place] [phone] Raquel Edmond, NICCI 400 [facility] [place] [address] 09/11/2024 1:30 PM EST Hospital Encounter [facility]O [facility], Endoscopy Room [facility] [address] [place] [phone] Maya Quiñones DO [address] [place] [address] 09/11/2024 1:30 PM EST - 09/11/2024 2:30 PM EST Surgery ENDO [facility], Endoscopy Room [facility] [address] [place] [phone] Maya Quiñones DO [address] [place] [address] COLONOSCOPY FLEXIBLE PROXIMAL DIAGNOSTIC 03/29/2025 4:30 PM EDT Imaging Radiology [address] [place] [address] Scheduled Procedures Name Priority Associated Diagnoses Date/Ti [...] this encounter Medical Devices Implanted Type Area Food Service Order Clerk Device Identifier Shelf Expiration Date Model / Serial / Lot Lens [id number] 12.5mm+20.00 - [id number] - [id number] Implanted:Qty: 1 on 03/07/2024 by Cameron Molina DO at OR [facility] Left: Eye BAUSCH & LOMB 10/19/2026 [id number] / [id number] / [id number] Lens [id number] 12.5mm+22.00 - [id number] - [id number] Implanted:Qty: 1 on 04/04/2024 by Cameron Molina DO at OR [facility] Right: Eye BAUSCH & LOMB 07/19/2026 [id number] / [id number] / [id number] documented as of this encounter Visit Diagnoses [...] Discussed due to patient's condition Care Teams Veneer Redrier Relationship Specialty Start Date End Date Maritza Lyles MD 200 [facility] [place] [address] PCP - General Internal Medicine 10/03/20 documented as of this encounter
--- OUTSIDE RECORDS SUMMARY | 2024-05-01 07:35 | External Medical Summary | Summary of Care ---
Author Name Unknown Organization [facility] Address [address] [place] [address] Phone [phone] Care Team Providers Care Grain Farmer Name Role Phone Maritza Lyles MD Primary Care Provider + Encounter Details Date Type Department Care Team (Late st Contact Info) Description 04/02/2024 Telephone Hematology/Oncology, [facility] [address] [place] [address] Raquel Edmond CRNP [address] [place] [address] Allergies No known active allergiesdocumented [...] yrs 11/16/2023,12/23/2022 Pneumococcal Conjugate Vacci ne, 20-valent (Ovnsecy46) 12/23/2022 Pneumococcal Polysaccharide PPV23 (Pneumovax) Seasonal Influenza, [...] Ralph RN - 04/03/2024 10:03 AM EDT [place] plan for infed built and routed for [...] 04/05/2024 9:00 AM EDT Office Visit Ophthalmology, [facility] 132 [facility] [place] [address] Cameron Molina, DO 21 [place] [address] 04/12/2024 9:30 AM EDT Office Visit Ophthalmology, [facility] 132 [facility] [place] [address] Cameron Molina, DO 21 [place] [address] 05/03/2024 3:45 PM EDT Office Visit Ophthalmology, [facility] 132 [facility] [place] [address] Cameron Molina, DO 21 [place] [address] 07/02/2024 3:00 PM EDT Laboratory Laboratory [facility] 200 [facility] [place] [phone] Jeanie Lab [facility] 200 [facility] [place] [address] 07/02/2024 3:30 PM EDT Office Visit Hematology/Oncology [facility] [address] [facility] [place] [phone] Raquel Edmond, BIKE ASSEMBLER [address] [place] [address] [place] [address] 03/29/2025 4:30 PM EDT Imaging Radiology [address] 132 [facility] [place] [address] Scheduled Procedures Name Priority Associated Diagnoses Date/Ti [...] this encounter Medical Devices Implanted Type Area Rotary Envelope Machine Operator Device Identifier Shelf Expiration Date Model / Serial / Lot Lens [id number] 12.5mm+20.00 - [id number] - [id number] Implanted:Qty: 1 on 03/07/2024 by Cameron Molina, DO at OR [facility] Left: Eye BAUSCH & LOMB 10/19/2026 [id number] / [id number] / [id number] Lens [id number] 12.5mm+22.00 - [id number] - [id number] Implanted:Qty: 1 on 04/04/2024 by Cameron Molina, at OR [facility] Right: Eye BAUSCH & LOMB 07/19/2026 [id number] / [id number] / [id number] documented as of this encounter Visit Diagnoses Diagnosis Iron deficiency anemia due to chronic blood loss- Primary Iron deficiency anemia secondary to blood loss (chronic) Pseudophakia- Primary Lens replaced by other means [...] Discussed due to patient's condition Care Teams Grain Farmer Relationship Specialty Start Date End Date Maritza Lyles MD 200 [facility] [place], [place] [address] PCP - General Internal Medicine 10/03/20 documented as of this encounter
--- OUTSIDE RECORDS SUMMARY | 2024-05-01 07:36 | External Medical Summary | Summary of Care ---
Author Name Unknown Organization [facility] Address [address] [place] [address] Phone [phone] Care Team Providers Care Powder Core Tester Name Role Phone Maritza Lyles MD Primary Care Provider + Encounter Details Date Type Department Care Team (Late st Contact Info) Description 04/02/2024 Telephone Hematology/Oncology, [facility] [address] [place] [address] Raquel Edmond CRNP [address] [place] [address] Allergies No known active allergiesdocumented as of this encounter (statuses as of 04/04/2024) Medications Medication Sig Dispensed Refills Start Date End Date Status Aspirin 81 MG Oral Capsule at bedtime. 05/23/2021 Active metFORMIN HCl 500 MG Oral Tablet (Glucophage)Indica tions:Type 2 diabetes mellitus with hemoglobin A1c goal of less than 7.0% ([facility]) Take 2 Tablets by mouth [...] as of this encounter (statuses as of 04/04/2024) Active Problems Problem Noted Date Diagnosed Date [...] as of this encounter (statuses as of 04/04/2024) Immunizations Name Administration Dates Next Due Hepatitis B, 20+ yrs 11/16/2023,12/23/2022 Pneumococcal Conjugate Vacci ne, 20-valent (Bpkmmkp69) 12/23/2022 Pneumococcal Polysaccharide PPV23 (Pneumovax) Seasonal Influenza, [...] Ralph RN - 04/03/2024 10:03 AM EDT [place] plan for infed built and routed for [...] Description 04/05/2024 9:00 AM EDT Office Visit [facility] 132 [facility] [place] [address] Cameron Molina DO 31 [place] [address] 04/12/2024 9:30 AM EDT Office Visit [facility] [address] [place] [address] Cameron Molina DO 93 [place] [address] 05/03/2024 3:45 PM EDT Office Visit Ophthalmology, [facility] [address] [place] [address] Cameron Molina, DO [address] [facility] [place] [address] 07/02/2024 3:00 PM EDT Laboratory Laboratory [facility] [address] [place] [phone] [place], Lab [facility] [address] [place] [address] 07/02/2024 3:30 PM EDT Office Visit Hematology/Oncology [facility] [address] [place] [phone] Raquel Edmond CRNP 400 [facility] [place] [address] 03/29/2025 4:30 PM EDT Imaging Radiology [address] [place] [address] Scheduled Procedures Name Priority Associated Diagnoses Date/Ti me EXTRACAPSULAR CATARACT REMOVAL WITH INTRAOCULAR LENS Cataract 04/04/2024 12:15 PM EDT COLONOSCOPY FLEXIBLE PROXIMAL DIAGNOSTIC Recall Screen for [...] this encounter Medical Devices Implanted Type Area Mason Helper Device Identifier Shelf Expiration Date Model / Serial / Lot Lens [id number] 12.5mm+20.00 - [id number] - [id number] Implanted:Qty: 1 on 03/07/2024 by Cameron Molina DO at OR [facility] Left: Eye BAUSCH & LOMB 10/19/2026 [id number] / [id number] / [id number] documented as of this encounter Visit Diagnoses Diagnosis Iron deficiency anemia due to chronic blood loss- Primary Iron deficiency anemia secondary to blood loss (chronic) Screening mammogram for breast cancer documented in this encounter Advance Directives * Full Code (Latest Code Status on File) Date Activated Date Inactivated Comments 03/07/2024 12:02 PM 03/07/2024 7:13 PM Question Answer Comments Discussion of Advance Direct jose david occurred with: Not Discussed due to patient's condition * Full Code Date Activated Date Inactivated Comments 02/22/2024 12:02 PM 02/22/2024 5:27 PM Question Answer Comments Discussion of Advance Direct jose david occurred with: Not Discussed due to patient's condition Care Teams Powder Core Tester Relationship Specialty Start Date End Date Maritza Lyles MD [address] [place] [address] [place] [address] PCP - General Internal Medicine 10/03/20 documented as of this encounter
--- OUTSIDE RECORDS SUMMARY | 2024-05-01 07:36 | External Medical Summary | Summary of Care ---
Author Name Unknown Organization [facility] Address [address] [facility] [address] Phone [phone] Care Team Providers Care Soil Surveyor Name Role Phone Maritza Lyles MD Primary Care Provider + Reason for Visit * Reason Onset Date Comments Advice 03/06/2024 Encounter Details Date Type Department Care Team (Late st Contact Info) Description 03/06/2024 Telephone General Internal Medicine [facility] [place] 200 [facility] [place] [phone] Maritza Lyles MD 200 [place] [address] Advice Allergies No known active allergiesdocumented as of this encounter (statuses as of 03/26/2024) Medications Medication Sig Dispensed Refills Start Date End Date Status Aspirin 81 MG Oral Capsule TAKE 1 TABLET BY MOUTH EVERY DAY 05/23/2021 Active metFORMIN HCl 500 MG Oral Tablet (Glucophage)Isabelle cations:Type 2 diabetes mellitus with hemoglobin A1c goal of less than 7.0% (HCC) Take 2 Tablets by mouth 2 times a day with morning and evening meals. 360 Tablet 3 11/16/2022 Active Omeprazole 40 MG Oral Capsule Delayed Release (PriLOSEC)Indica tions:Gastroesop hageal reflux disease without esophagitis TAKE 1 CAPSULE BY MOUTH IN THE MORNING AND BEFORE BEDTIME 180 Capsule 1 11/28/2023 Active Losartan Potassium 50 MG Oral Tablet (Cozaar)Indicati ons:HTN, goal below 130/80 TAKE 1 TABLET BY MOUTH EVERY DAY IN THE MORNING 90 Tablet 1 11/28/2023 Active Metoprolol Succinate ER 25 MG Oral Tablet Extended Release 24 Hour (toPROL XL) Take 1 Tablet by mouth in the morning. 90 Tablet 3 01/11/2024 Active Atorvastatin Calcium 80 MG Oral Tablet (Lipitor)Indicat ions:Type 2 diabetes mellitus with hemoglobin A1c goal of less than 7.0% (HCC) TAKE 1 TABLET BY MOUTH EVERY DAY IN THE MORNING 90 Tablet 3 02/09/2024 Active Additional Information Patient taking differently: 80 mg Oral HS, Reported on 02/15/2024 Furosemide 20 MG Oral Tablet (Lasix) Take 1 Tablet by mouth in the morning. 90 Tablet 3 02/17/2023 03/12/20 24 Discontinued documented as of this encounter (statuses as of 03/26/2024) Active Problems Problem Noted Date Diagnosed Date Iron deficiency anemia 02/16/2024 Combined forms of age-related cataract of both e yes 01/05/2024 Stress-induced cardiomyopathy 05/10/2023 Type 2 diabetes mellitus wit h hemoglobin A1c goal of less than 7.0% 11/02/2021 Hyperlipidemia with target LDL less than 100 HTN, goal below 130/80 11/02/2021 Gastroesophageal reflux disease without esophagi tis 11/02/2021 NEELAM (generalized anxiety disorder) 08/20/2021 documented as of this encounter (statuses as of 03/26/2024) Immunizations Name Administration Dates Next Due Hepatitis B, 20+ yrs 11/16/2023,12/23/2022 Pneumococcal Conjugate Vacci ne, 20-valent ([id number]) 12/23/2022 Pneumococcal Polysaccharide PPV23 (Pneumovax) Seasonal Influenza, [...] encounter Miscellaneous Notes * Telephone Encounter - Karishma Florez LPN - 03/26/2024 9:50 AM EDT Left message for pt to call back. * Telephone Encounter - Maritza Lyles MD - 03/16/2024 1:50 PM EDT Please inform the family and patient that with shortage of in 0 4 she will not need anymore but should continue [id number] iron pill 1 pill every other day. * Telephone Encounter - Maya Vasquez OSA - 03/15/2024 9:10 AM EDT Apt cancelled * Telephone Encounter - Lluvia Anthony OSA - 03/15/2024 9:08 AM EDT Pts daughter called to verify if Iron infusions will be rescheduled or if an oral is sufficient. Please reach out to pts daughter to advise. Thank You! * Telephone Encounter - Lazara Ralph RN - 03/15/2024 8:54 AM EDT Patient was added to the SP treatment room schedule yesterday for a venofer infusion today by Ej Castaneda. We have no orders for infusion as this was cancelled due to venofer shortage. Left message for patient that appt today will need to be cancelled. Scheduling: please cancel infusion today. IM: FYI- advised in message for patient to call your office back * Telephone Encounter - Leah Nowak MED ASSIST - 03/13/2024 3:22 PM EDT Left message for the patient to call the office. Upon return call please transfer to a dedicated telephone nurse. * Telephone Encounter - Lazara Ralph RN - 03/12/2024 7:38 AM EDT [place] discontinued. IM: please make sure patient is aware. * Telephone Encounter - Maritza Lyles MD - 03/09/2024 3:33 PM EDT Sure. We can hold off for now as I do see improvement in labs.Thanks * Telephone Encounter - Lazara Ralph RN - 03/09/2024 2:23 PM EDT Due to venofer shortage, will be unable to reschedule patient for venofer infusions. Patient has received 2 of the [address] doses [address]er. Dr Lyles: please advise on how you would like to proceed. Can also forward email to you with alternate iron infusion products if you would like! * Telephone Encounter - Xenia Salvador RN - 03/09/2024 2:13 PM EDT Patient did now show up for her venofer infusion today. Scheduling:Please remove from schedule today and call patient to reschedule. Thank you. NS: FYI * Telephone Encounter - Dannielle Castellano LPN - 03/06/2024 12:32 PM EDT Please inform the patient and the family that her iron has improved significantly with recent to iron infusion. She should continue and finish 2 more. Keep scheduled appointment for cataract surgery. documented in this encounter Plan of Treatment Upcoming Encounters Date Type Department Care Team (Late st Contact Info) Description 03/28/2024 4:15 PM EDT Imaging Radiology [address] [facility] [place] [address] 03/30/2024 1:00 PM EDT Office Visit Hematology/Oncolog y [facility] 200 [facility] [address] [place] [phone] Raquel Edmond CRNP 400 [facility] [place] [address] 04/04/2024 1:00 PM EDT Hospital Encounter OR [facility], Operating Room [facility] 132 [facility] [place] [phone] Cameron Molina, 21 [facility] [place] [address] 04/04/2024 1:00 PM EDT - 04/04/2024 1:46 PM EDT Surgery OR [facility], Operating Room [facility] 132 [facility] [place] [phone] Cameron Molina, DO 21 [place] [address] RIGHT EXTRACAPSULAR CATARACT REMOVAL WITH INTRAOCULAR LENS 04/05/2024 9:00 AM EDT Office Visit Ophthalmology, [facility] 132 [facility] [place] [address] Cameron Molina, DO [address] [place] [address] 04/12/2024 9:30 AM EDT Office Visit Ophthalmology, [facility] 132 [facility] [place] [address] Cameron Molina, DO 21 [place] [address] 05/03/2024 3:45 PM EDT [facility] 132 [facility] [place] [address] Cameron Molina, DO 21 [place] [address] Scheduled Procedures Name Priority Associated Diagnoses Date/Ti me EXTRACAPSULAR CATARACT REMOVAL WITH INTRAOCULAR LENS Cataract 04/04/2024 1:00 PM EDT COLONOSCOPY FLEXIBLE PROXIMAL DIAGNOSTIC Recall [...] this encounter Medical Devices Implanted Type Area Senior Maintenance Mechanic Device Identifier Shelf Expiration Date Model / Serial / Lot Lens [id number] 12.5mm+20.00 - [id number] - [id number] Implanted:Qty: 1 on 03/07/2024 by Cameron Molina DO at OR [facility] Left: Eye BAUSCH & LOMB 10/19/2026 [id number] / [id number] documented as of this encounter Advance Directives [...] Discussed due to patient's condition Care Teams Soil Surveyor Relationship Specialty Start Date End Date Maritza Lyles MD 200 [facility] [place] [address] PCP - General Internal Medicine 10/03/20 documented as of this encounter
--- OUTSIDE RECORDS SUMMARY | 2024-05-01 07:36 | External Medical Summary | Summary of Care ---
Author Name Unknown Organization [facility] Address [address] [facility] [place] [place] [address] Phone [phone] Care Team Providers Care Labor And Delivery Nurse Name Role Phone Maritza Lyles MD Primary Care Provider + Reason for Visit * Reason Onset Date Comments Appointment 03/30/2024 Encounter Details Date Type Department Care Team (Late st Contact Info) Description 03/30/2024 Telephone Hematology/Oncology [facility] [place] 200 [facility] [phone] Iker Edmond CRNP 400 [place] [address] Appointment Allergies No known active allergiesdocumented as of this encounter (statuses as of 04/04/2024) Medications Medication Sig Dispensed Refills Start Date End Date Status Aspirin 81 MG Oral Capsule at bedtime. 05/23/2021 Suspended metFORMIN HCl 500 MG Oral Tablet (Glucophage)Indic ations:Type 2 diabetes mellitus with hemoglobin A1c goal of less than 7.0% ([facility]) Take 2 Tablets by mouth 2 times a day with morning and evening meals. 360 Tablet 3 11/16/2022 Suspended Additional Information Omeprazole 40 MG Oral Capsule Delayed Release (PriLOSEC)Indicat ions:Gastroesopha geal reflux disease without esophagitis TAKE 1 CAPSULE BY MOUTH IN THE MORNING AND BEFORE BEDTIME 180 Capsule 1 11/28/2023 Suspended Additional Information Losartan Potassium 50 MG Oral Tablet (Cozaar)Indicatio ns:HTN, goal below 130/80 TAKE 1 TABLET BY MOUTH EVERY DAY IN THE MORNING 90 Tablet 1 11/28/2023 Suspended Additional Information Metoprolol Succinate ER 25 MG Oral Tablet Extended Release 24 Hour (toPROL XL) Take 1 Tablet by mouth in the morning. 90 Tablet 3 01/11/2024 Suspended Additional Information Atorvastatin Calcium 80 MG Oral Tablet (Lipitor)Indicati ons:Type 2 diabetes mellitus with hemoglobin A1c goal of less than 7.0% (HCC) TAKE 1 TABLET BY MOUTH EVERY DAY IN THE MORNING 90 Tablet 3 02/09/2024 Suspended Additional Information Patient taking differently: 80 mg Oral HS, Reported on 02/15/2024 Furosemide 20 MG Oral Tablet (Lasix) TAKE 1 TABLET BY MOUTH EVERY DAY IN THE MORNING 90 Tablet 3 03/12/2024 Suspended Additional Information prednisoLONE Acetate 1 % Ophthalmic Suspension (Pred Forte) Instill 1 Drop into the left eye in the morning and 1 Drop before bedtime. 10 mL 03/15/2024 Suspended Additional Information documented as of this encounter (statuses as [...] yrs 11/16/2023,12/23/2022 Pneumococcal Conjugate Vacci ne, 20-valent ([id number]) 12/23/2022 Pneumococcal Polysaccharide PPV23 (Pneumovax) Seasonal Influenza, [...] Miscellaneous Notes * Telephone Encounter - Maya Vasquez OSA - 03/30/2024 1:57 PM EDT Patient Demographics for EDITA LAURA [[id number]] date: 1965 SSN: [id number] Age: 58 yrs Sex: Female Home phone: Work phone: Address: [address] [place] [phone] E-mail: [email or web address] Permanent comments: Javascript Software Engineer needed Referral Information Patient: Edita Laura [[id number]] Referral ID: [id number] Status: Authorized Type: Ancillary Services Class: Internal Reason(s): Ancillary Services Required [] Diagnosis: D50.0 (ICD-10-CM) - Iron deficiency anemia due to chronic blood loss Procedure(s): [id number] - COLONOSCOPY, GI REFERRAL OP Start: Mar 30, 2024 Expiration: Requested: 999 Authorized: 999 Scheduled: Completed: Authorization #: Precertification #: Referring Provider: IKER EDMOND Ref to Dept Specialty: Referred to Provider: Ref to Margaret Specialty: Gastroenterology Referral Priority: Within 10 days (routine) Coverages Used Pt Covered? Payor Plan Auth # Precert # Authorization Comments Covered [employer] HMO XC-Q1 Patient Demographics for EDITA LAURA [[id number]] date: 1965 SSN: [id number] Age: 58 yrs Sex: Female Home phone: Work phone: Address: [address] [place] [address] [place] [phone] E-mail: [email or web address] Permanent comments: Javascript Software Engineer needed Referral Information Patient: Edita Laura [[id number]] Referral ID: [id number] Status: Authorized Type: Ancillary Services Class: Internal Reason(s): Ancillary Services Required [] Diagnosis: D50.0 (ICD-10-CM) - Iron deficiency anemia due to chronic blood loss Procedure(s): [id number] - UPPER ENDOSCOPY GI REFERRAL OP Start: Mar 30, 2024 Expiration: Requested: 999 Authorized: 999 Scheduled: Completed: Authorization #: Precertification #: Referring Provider: IKER EDMOND Ref to Dept Specialty: Referred to Provider: Ref to Margaret Specialty: Gastroenterology Referral Priority: Within 10 days (routine) Coverages Used Pt Covered? Payor Plan Auth # Precert # Authorization Comments Covered [employer] HMO XC-Q1 documented in this encounter Plan of Treatment Upcoming Encounters Date Type Department Care Team (Late st Contact Info) Description 04/05/2024 9:00 AM EDT Office Visit Ophthalmology, [address] [place] [address] Cameron Molina, DO [address] [place] [address] 04/12/2024 9:30 AM EDT Office Visit [place] [address] [place] [address] Cameron Molina, DO 21 [place] [address] 05/03/2024 3:45 PM EDT Office Visit Ophthalmology, [facility] 132 [facility] [place] [address] Cameron Molina, DO [address] [place] [address] 07/02/2024 3:00 PM EDT Laboratory Laboratory [facility] [address] [place] [phone] [place] [address] [place] [address] 07/02/2024 3:30 PM EDT Office Visit Hematology/Oncology [facility] [address] [place] [phone] Iker Edmond, NICCI 400 [facility] [place] [address] 03/29/2025 4:30 PM EDT Imaging Radiology [address] 132 [facility] [place] [address] Scheduled Procedures Name Priority Associated Diagnoses Date/Ti me EXTRACAPSULAR CATARACT REMOVAL WITH INTRAOCULAR LENS Cataract 04/04/2024 12:18 PM EDT COLONOSCOPY FLEXIBLE PROXIMAL DIAGNOSTIC Recall [...] this encounter Medical Devices Implanted Type Area Middle Stitcher Device Identifier Shelf Expiration Date Model / Serial / Lot Lens [id number] 12.5mm+20.00 - [id number] - [id number] Implanted:Qty: 1 on 03/07/2024 by Cameron Molina DO at OR [facility] Left: Eye BAUSCH & LOMB 10/19/2026 [id number] / [id number] / [id number] documented as of this encounter Advance Directives * Full Code (Latest Code Status on File) Date Activated Date Inactivated Comments 04/04/2024 11:31 AM Question Answer Comments Discussion of Advance Direct [...] Discussed due to patient's condition Care Teams Labor And Delivery Nurse Relationship Specialty Start Date End Date Maritza Lyles MD 200 [facility] [place] [address] PCP - General Internal Medicine 10/03/20 documented as of this encounter
--- OUTSIDE RECORDS SUMMARY | 2024-05-01 07:36 | External Medical Summary ---
Author Name Unknown Address Unknown Organization K09:[facility] [address] Laboratory Report Ordering Provider Test Date Status ROSIE DONG 03/30/2024 13:57:13 Final Observation Date Value Abnormality Reference (Units ) Status WBC, Total 03/30/2024 13:57:13 10.17 4.00-10.8 0 (K/uL) Final RBC 03/30/2024 13:57:13 4.81 3.85-5.15 (M/uL) Final Hemoglobin 03/30/2024 13:57:13 11.5 Below low normal 12 .0-15.3 (g/dL) Final HCT 03/30/2024 13:57:13 37.7 36.0-45.2 (%) Final MCV 03/30/2024 13:57:13 78.4 81.5-97.5 (fL) Final MCH 03/30/2024 13:57:13 23.9 27.0-34.0 (pg) Final MCHC 03/30/2024 13:57:13 30.5 32.0-36.0 (g/dL) Final RDW 03/30/2024 13:57:13 21.1 11.5-15.5 (%) Final Platelets 03/30/2024 13:57:13 385 140-400 (K /uL) Final MPV 03/30/2024 13:57:13 9.5 6.6-11.1 ( fL) Final Performing Location [facility] [address]
--- OUTSIDE RECORDS SUMMARY | 2024-05-01 07:36 | External Medical Summary ---
Author Name Unknown Address Unknown Organization : Laboratory Report Ordering Provider Test Date Status JOSEPH SARMIENTO 04/04/2024 11:48:27 Final Observation Date Value Abnormality Reference (Units ) Status Glucose Point of Care 04/04/2024 11:48:27 107 70-120 (mg/dL) Final Performing Location
--- OUTSIDE RECORDS SUMMARY | 2024-05-01 07:36 | External Medical Summary | Summary of Care ---
Author Name Unknown Organization [facility] Address [address] [facility] [address] Phone [phone] Care Team Providers Care Extermination Inspector Name Role Phone Maritza Lyles MD Primary Care Provider + Reason for Visit * Reason Onset Date Comments Advice 03/06/2024 Encounter Details Date Type Department Care Team (Late st Contact Info) Description 03/06/2024 Telephone General Internal Medicine [facility] [place] 200 [facility] [place] [address] Maritza Lyles MD 200 [place] [address] Advice Allergies No known active allergiesdocumented as of this encounter (statuses as of 04/04/2024) Medications Medication Sig Dispensed Refills Start Date End Date Status Aspirin 81 MG Oral Capsule at bedtime. 05/23/2021 Suspended metFORMIN HCl 500 MG Oral Tablet (Glucophage)Isabelle cations:Type 2 diabetes mellitus with hemoglobin A1c goal of less than 7.0% ([facility]) Take 2 Tablets by mouth 2 times a day with morning and evening meals. 360 Tablet 3 11/16/2022 Suspended Additional Information Furosemide 20 MG Oral Tablet (Lasix) Take 1 Tablet by mouth in the morning. 90 Tablet 3 02/17/2023 03/12/20 24 Discontinued Omeprazole 40 MG Oral Capsule Delayed Release (PriLOSEC)Indica tions:Gastroesop hageal reflux disease without esophagitis TAKE 1 CAPSULE BY MOUTH IN THE MORNING AND BEFORE BEDTIME 180 Capsule 1 11/28/2023 Suspended Additional Information Losartan Potassium 50 MG Oral Tablet (Cozaar)Indicati ons:HTN, goal below 130/80 TAKE 1 TABLET BY MOUTH EVERY DAY IN THE MORNING 90 Tablet 1 11/28/2023 Suspended Additional Information Metoprolol Succinate ER 25 MG Oral Tablet Extended Release 24 Hour (toPROL XL) Take 1 Tablet by mouth in the morning. 90 Tablet 3 01/11/2024 Suspended Additional Information Atorvastatin Calcium 80 MG Oral Tablet (Lipitor)Indicat ions:Type 2 diabetes mellitus with hemoglobin A1c goal of less than 7.0% (HCC) TAKE 1 TABLET BY MOUTH EVERY DAY IN THE MORNING 90 Tablet 3 02/09/2024 Suspended Additional Information Patient taking differently: 80 mg Oral HS, Reported on 02/15/2024 documented as of this encounter (statuses as [...] yrs 11/16/2023,12/23/2022 Pneumococcal Conjugate Vacci ne, 20-valent ([id number]) 12/23/2022 Pneumococcal Polysaccharide PPV23 (Pneumovax) Seasonal Influenza, [...] encounter Miscellaneous Notes * Telephone Encounter - Raquel Anders LPN - 04/04/2024 11:37 AM EDT My g message sent to patient/family making them aware of Dr. Lyles's message regarding iron tablets. * Telephone Encounter - Karishma Florez LPN - 03/26/2024 9:50 AM EDT Left message for pt to call back. * Telephone Encounter - Maritza Lyles MD - 03/16/2024 1:50 PM EDT Please inform the family and patient that with shortage of in 0 4 she will not need anymore but should continue cboi-[id number]-hyyzwwz iron pill 1 pill every other day. [...] Ralph RN - 03/12/2024 7:38 AM EDT [place] discontinued. IM: please make sure patient is [...] 04/05/2024 9:00 AM EDT Office Visit Ophthalmology, [facility] 132 [facility] [place] [address] Cameron Molina DO [address] [place] [address] 04/12/2024 9:30 AM EDT Office Visit Ophthalmology, [facility] [address] [place] [address] Cameron Molina, DO [address] [place] [address] 05/03/2024 3:45 PM EDT Office Visit Ophthalmology, [facility] 132 [place] [address] Cameron Molina, DO [address] [place] [address] 07/02/2024 3:00 PM EDT Laboratory Laboratory [facility] [address] [place] [phone] [place] [address] [place] [address] 07/02/2024 3:30 PM EDT Office Visit Hematology/Oncology [facility] [address] [place] [phone] Raquel Edmond CRNP 400 [place] [address] 03/29/2025 4:30 PM EDT Imaging Radiology [address] [place] [address] Scheduled Procedures Name Priority Associated Diagnoses Date/Ti [...] this encounter Medical Devices Implanted Type Area Alarm Adjuster Device Identifier Shelf Expiration Date Model / Serial / Lot Lens [id number] 12.5mm+20.00 - [id number] - [id number] Implanted:Qty: 1 on 03/07/2024 by Cameron Molina DO at OR [facility] Left: Eye BAUSCH & LOMB 10/19/2026 [id number] / [id number] / [id number] documented as of this encounter Advance Directives [...] Discussed due to patient's condition Care Teams Extermination Inspector Relationship Specialty Start Date End Date Maritza Lyles MD 200 [place] [address] PCP - General Internal Medicine 10/03/20 documented as of this encounter
--- OUTSIDE RECORDS SUMMARY | 2024-05-01 07:36 | External Medical Summary ---
Author Name Unknown Address Unknown Organization K01:[facility] - [address] [place] [address] Laboratory Report Ordering Provider Test Date Status ROSIE DONG 03/30/2024 13:57:13 Final Observation Date Value Abnormality Reference (Units ) Status Iron 03/30/2024 13:57:13 32 Below low normal 33-151 (ug/dL) Final Iron-binding capacity 03/30/2024 13:57:13 367 250-425 (ug/dL) Final Transferrin Sat % 03/30/2024 13:57:13 9 Below low normal 15-55 (%) Final Performing Location [facility] - [address] [place] [address]
--- OUTSIDE RECORDS SUMMARY | 2024-05-01 07:36 | External Medical Summary | Summary of Care ---
Author Name Unknown Organization [facility] Address [address] [facility] [place] [address] Phone [phone] Care Team Providers Care Sand Control Worker Name Role Phone Maritza Lyles MD Primary Care Provider + Reason for Visit * Reason Onset Date Comments Appointment 03/30/2024 Encounter Details Date Type Department Care Team (Late st Contact Info) Description 03/30/2024 Telephone Hematology/Oncology [facility] [place] 200 [facility] [address] Raquel Edmond CRNP 400 [place] [address] Appointment Allergies No known active allergiesdocumented as of this encounter (statuses as of 04/02/2024) Medications Medication Sig Dispensed Refills Start Date End Date Status Aspirin 81 MG Oral Capsule at bedtime. 05/23/2021 Active metFORMIN HCl 500 MG Oral Tablet (Glucophage)Indica tions:Type 2 diabetes mellitus with hemoglobin A1c goal of less than 7.0% ([facility]) Take 2 Tablets by mouth [...] as of this encounter (statuses as of 04/02/2024) Active Problems Problem Noted Date Diagnosed Date [...] as of this encounter (statuses as of 04/02/2024) Immunizations Name Administration Dates Next Due Hepatitis B, 20+ yrs 11/16/2023,12/23/2022 Pneumococcal Conjugate Vacci ne, 20-valent ([id number]) 12/23/2022 Pneumococcal Polysaccharide PPV23 (Pneumovax) Seasonal Influenza, [...] PM EDT Patient Demographics for EDITA LAURA [[id number]] date: 1965 SSN: [id number] Age: 58 yrs Sex: Female Home phone: Work phone: Address: [address] [place] [phone] E-mail: [email or web address] Permanent comments: Primary Health Care Nurse needed Referral Information Patient: Edita Laura [[id number]] Referral ID: [id number] Status: Authorized Type: Ancillary Services Class: Internal Reason(s): Ancillary Services Required [] Diagnosis: D50.0 (ICD-10-CM) - Iron deficiency anemia due to chronic blood loss Procedure(s): [id number] - COLONOSCOPY, GI REFERRAL OP Start: Mar 30, 2024 Expiration: Requested: 999 Authorized: 999 Scheduled: Completed: Authorization #: Precertification #: Referring Provider: RAQUEL EDMOND Ref to Dept Specialty: Referred to Provider: Ref to Prov Specialty: Gastroenterology Referral Priority: Within 10 days (routine) Coverages Used Pt Covered? Payor Plan Auth # Precert # Authorization Comments Covered [employer] HMO XC-Q1 Patient Demographics for EDITA LAURA [[id number]] date: 1965 SSN: [id number] Age: 58 yrs Sex: Female Home phone: Work phone: Address: [address] [place] [address] [place] [phone] E-mail: [email or web address] Permanent comments: Primary Health Care Nurse needed Referral Information Patient: Edita Laura [[id number]] Referral ID: [id number] Status: Authorized Type: Ancillary Services Class: Internal Reason(s): Ancillary Services Required [] Diagnosis: D50.0 (ICD-10-CM) - Iron deficiency anemia due to chronic blood loss Procedure(s): [id number] - UPPER ENDOSCOPY GI REFERRAL OP Start: Mar 30, 2024 Expiration: Requested: 999 Authorized: 999 Scheduled: Completed: Authorization #: Precertification #: Referring Provider: RAQUEL EDMOND Ref to Dept Specialty: Referred to Provider: Ref to Prov Specialty: Gastroenterology Referral Priority: Within 10 days (routine) Coverages Used Pt Covered? Payor Plan Auth # Precert # Authorization Comments Covered [employer] H[employer] XC-Q1 documented in this encounter Plan of Treatment Upcoming Encounters Date Type Department Care Team (Late st Contact Info) Description 04/04/2024 1:00 PM EDT Hospital Encounter [facility], Operating Room [facility] [address] [place] [address] Cameron Molina, 21 [place] [address] 04/04/2024 1:00 PM EDT - 04/04/2024 1:46 PM EDT Surgery OR [facility], Operating Room [facility] [address] [place] [phone] Cameron Molina, DO 21 [place] [address] RIGHT EXTRACAPSULAR CATARACT REMOVAL WITH INTRAOCULAR LENS 04/05/2024 9:00 AM EDT Office Visit Ophthalmology, [address] [place] [address] Cameron Molina, DO 21 [place] [address] 04/12/2024 9:30 AM EDT Office Visit Ophthalmology, [address] [place] [address] Cameron Molina, DO 21 [place] [address] 05/03/2024 3:45 PM EDT Office Visit Ophthalmology, [address] [place] [address] Cameron Molina, DO [address] [place] [address] 07/02/2024 3:00 PM EDT Laboratory Laboratory [facility] [address] [place] [phone] Jeanie Lab [address] [facility] [place] [address] 07/02/2024 3:30 PM EDT Office Visit Hematology/Oncolog y [facility] [place] [address] [place] [phone] Raquel Edmond CRNP 400 [facility] [place] [address] 03/29/2025 4:30 PM EDT Imaging Radiology [address] [place] [address] Scheduled Procedures Name Priority Associated Diagnoses Date/Ti [...] this encounter Medical Devices Implanted Type Area Bi Developer Device Identifier Shelf Expiration Date Model / Serial / Lot Lens [id number] 12.5mm+20.00 - [id number] - [id number] Implanted:Qty: 1 on 03/07/2024 by Cameron Molina DO at OR [facility] Left: Eye [employer]OM[employer] 10/19/2026 [id number] / [id number] / [id number] documented as of this encounter Advance Directives [...] Discussed due to patient's condition Care Teams Sand Control Worker Relationship Specialty Start Date End Date Maritza Lyles MD 200 [place] [address] PCP - General Internal Medicine 10/03/20 documented as of this encounter
--- OUTSIDE RECORDS SUMMARY | 2024-05-01 07:36 | External Medical Summary | Summary of Care ---
Author Name Unknown Organization [facility] Address [address] [facility] [address] Phone [phone] Care Team Providers Care Advertising Production Manager Name Role Phone Maritza Lyles MD Primary Care Provider + Reason for Visit * Reason Comments Infusion Venofer 2/ Encounter Details Date Type Department Care Team (Latest Contact Info) Description 03/01/2024 11:30 AM EDT Hem/Onc Treatment Hematology/Oncology Treatment, [place] 200 [place] [address] Jeanie, Chair 8 Hem Onc [facility] 200 [place] [address] Iron deficiency anemia due to chronic blood loss* Allergies No known active allergiesdocumented as of this encounter (statuses as of 03/28/2024) Medications Medication Sig Dispensed Refills Start Date End Date Status Aspirin 81 MG Oral Capsule TAKE 1 TABLET BY MOUTH EVERY DAY 05/23/2021 Active metFORMIN HCl 500 MG Oral Tablet (Glucophage)Isabelle cations:Type 2 diabetes mellitus with hemoglobin A1c goal of less than 7.0% ([facility]) Take 2 Tablets by mouth 2 times [...] as of this encounter (statuses as of 03/28/2024) Active Problems Problem Noted Date Diagnosed Date [...] as of this encounter (statuses as of 03/28/2024) Immunizations Name Administration Dates Next Due Hepatitis B, 20+ yrs 11/16/2023,12/23/2022 Pneumococcal Conjugate Vacci ne, 20-valent ([id number]) 12/23/2022 Pneumococcal Polysaccharide PPV23 (Pneumovax) Seasonal Influenza, [...] drink = 0.6 oz pur e alcohol) Sex and Gender Information Value Date Recorded Sex Assigned at Not on file Gender Identity Not on file Sexual Orientation Not on file Job Start Date Occupation Industry Not on file Not on file Not on file documented as of this encounter Last Filed Vital Signs Vital Sign Reading Time Taken Comments Blood Pressure 150/85 03/01/2024 12:50 PM EDT Pulse 89 03/01/2024 12:50 PM EDT Temperature 36.7 C (98 F) 03/01/2024 12:50 PM EDT Respiratory Rate 18 03/01/2024 12:50 PM EDT Oxygen Saturation 95% 03/01/2024 12:50 PM EDT Inhaled Oxygen Concentration - - Weight - - Height - - Body Mass Index - - documented in this encounter Nursing Notes * Leticia Weeks LPN - 03/01/2024 12:51 PM EDT 1150: Pt arrived for Venofer 2/4 infusion. PIV in RFA. Pt tolerated well. VSS. No complaints at this time. 1335: Pt tolerated Venofer infusion well. PIV removed intact. Pt to return in one week. Discharged in stable condition. documented in this encounter Plan of Treatment Upcoming Encounters Date Type Department Care Team (Late st Contact Info) Description 03/30/2024 1:00 PM EDT Office Visit Hematology/Oncolog y [facility] Jeanie [place] 200 [facility] [address] Raquel Edmond CRNP 400 [place] [address] 04/04/2024 1:00 PM EDT Hospital Encounter OR [facility], Operating Room [facility] 132 [facility] [place] [phone] Cameron Molina DO 21 [facility] [place] [id number] 04/04/2024 1:00 PM EDT - 04/04/2024 1:46 PM EDT Surgery OR [facility], Operating Room [facility] 132 [facility] [place] [phone] Cameron Molina, DO 21 [facility] [place] [address] RIGHT EXTRACAPSULAR CATARACT REMOVAL WITH INTRAOCULAR LENS 04/05/2024 9:00 AM EDT Office Visit Ophthalmology, [facility] 132 [facility] [place] [address] Cameron Molina, DO 21 [place] [address] 04/12/2024 9:30 AM EDT Office Visit Ophthalmology, [facility] 132 [facility] [place] [address] Cameron Molina, DO 21 [place] [address] 05/03/2024 3:45 PM EDT Office Visit Ophthalmology, [facility] 132 [facility] [place] [address] Cameron Molina, DO 21 [place] [address] 03/29/2025 4:30 PM EDT Imaging Radiology [facility] 132 [facility] [place] [address] Scheduled Procedures Name Priority Associated Diagnoses Date/Ti me EXTRACAPSULAR CATARACT REMOVAL WITH INTRAOCULAR LENS Cataract 04/04/2024 1:00 PM EDT COLONOSCOPY FLEXIBLE PROXIMAL DIAGNOSTIC Recall Screen for colon cancer Health Maintenance Due Date Last Done Comments Depression Screening 1976 Pap Smear 1985 Cervical Cancer Screening 1994 HPV/Co-Test 1994 Cologuard 2009 Fecal Occult Blood Test 2009 Sigmoidoscopy 2009 COVID-19 Vaccine (3 2022-24 season) 2023 12/23/2020, 12/02/2020 Albumin/Creatinine Ratio 10/04/2023 [...] documented as of this encounter Medical Devices Not on filedocumented as of this encounter Visit Diagnoses Diagnosis Combined forms of age-related cataract of both eyes- Primary Other and combined forms of senile cataract Iron deficiency anemia due to chronic blood loss- Primary Iron deficiency anemia secondary to blood loss (chronic) Cataract Unspecified cataract Screening mammogram for breast cancer documented in this encounter Administered Medications Inactive Administered Medications - up to 3 most recent administrations Medication Order MAR Action Action Date Dose Rate Site Iron Sucrose (Venofer) 300 mg in NSS 250 mL ivpb 300 mg, IV Piggyback, ONCE, 1 dose, On Fariba 03/01/24 at 1315, Administer over 90 Minutes Start Infusion 03/01/2024 11:53 AM EDT 300 mg 180 mL/hr NSS infusion 500 mL, Intravenous, at 50 mL/hr, CONTINUOUS, Starting on Fariba 03/01/24 at 1245, Until Fariba 03/01/24 at 1746 Start Infusion 03/01/2024 11:52 AM EDT 500 mL 50 mL/hr documented in this encounter Advance [...] Discussed due to patient's condition Care Teams Advertising Production Manager Relationship Specialty Start Date End Date Maritza Lyles MD 200 [facility] [place] [address] PCP - General Internal Medicine 10/03/20 documented as of this encounter
--- OUTSIDE RECORDS SUMMARY | 2024-05-01 07:36 | External Medical Summary | Summary of Care ---
Author Name Unknown Organization [facility] Address [address] [facility] [address] Phone [phone] Care Team Providers Care Photo Studio Assistant Name Role Phone Maritza Lyles MD Primary Care Provider + Reason for Visit * Reason Comments Outpatient Testing Encounter Details Date Type Department Care Team (Late st Contact Info) Description 03/30/2024 2:00 PM EDT Laboratory Laboratory [facility] [place] [address] [place] [phone] [place], Lab Scen[address] [place] [address] Iron deficiency anemia due to chronic blood loss Allergies No known active allergiesdocumented as of this encounter (statuses as of 03/30/2024) Medications Medication Sig Dispensed Refills Start Date [...] as of this encounter (statuses as of 03/30/2024) Active Problems Problem Noted Date Diagnosed Date [...] as of this encounter (statuses as of 03/30/2024) Immunizations Name Administration Dates Next Due Hepatitis B, 20+ yrs 11/16/2023,12/23/2022 Pneumococcal Conjugate Vacci ne, 20-valent ([id number]) 12/23/2022 Pneumococcal Polysaccharide PPV23 (Pneumovax) Seasonal Influenza, [...] on file documented as of this encounter Plan of Treatment Upcoming Encounters Date Type Department Care Team (Late st Contact Info) Description 04/04/2024 1:00 PM EDT Hospital Encounter OR [facility], Operating Room [facility] [address] [place] [phone] Cameron Molina, 21 [place] [address] 04/04/2024 1:00 PM EDT - 04/04/2024 1:46 PM EDT Surgery OR [facility], Operating Room [facility] [address] [place] [phone] Cameron Molina, 21 [place] [address] RIGHT EXTRACAPSULAR CATARACT REMOVAL WITH INTRAOCULAR LENS 04/05/2024 9:00 AM EDT Office Visit Ophthalmology, [facility] 132 [place] [address] Cameron Molina, 21 [place] [address] 04/12/2024 9:30 AM EDT Office Visit Ophthalmology, [facility] 132 [facility] [place] [address] Cameron Molina, DO 21 [place] [address] 05/03/2024 3:45 PM EDT Office Visit Ophthalmology, [address] [place] [address] Cameron Molina, DO [place] [address] 07/02/2024 3:00 PM EDT Laboratory Laboratory [facility] [place] [address] [place] [phone] [facility] [address] [place] [address] 07/02/2024 3:30 PM EDT Office Visit Hematology/Oncolog y [facility] Jeanie [place] [address] [place] [phone] Raquel Edmond, CELL TUBER MACHINE 400 [facility] [place] [address] 03/29/2025 4:30 PM EDT Imaging Radiology [address] 132 [facility] [place] [address] Pending Results Name Type Priority Associated Diagnoses Date /Time IRON SCREEN, INCLUDING TIBC Lab Routine Iron deficiency anemia due to chronic blood loss 03/30/2024 1:57 PM EDT FERRITIN Lab Routine Iron deficiency anemia due to chronic blood loss 03/30/2024 1:57 PM EDT Scheduled Procedures Name Priority Associated Diagnoses Date/Ti [...] this encounter Medical Devices Implanted Type Area Director Of Estate Device Identifier Shelf Expiration Date Model / Serial / Lot Lens [id number] 12.5mm+20.00 - [id number] - [id number] Implanted:Qty: 1 on 03/07/2024 by Cameron Molina DO at OR [facility] Left: Eye [employer] LOM[employer] 10/19/2026 [id number] / [id number] / [id number] documented as of this encounter Procedures Procedure Name Priority Date/Time Associated Diagnosis Comments DIFFERENTIAL, AUTOMATED Routine 03/30/2024 1:57 PM EDT Iron deficiency anemia due to chronic blood loss CBC Routine 03/30/2024 1:57 PM EDT Iron deficiency anemia due to chronic blood loss CBC Routine 03/30/2024 1:57 PM EDT Iron deficiency anemia due to chronic blood loss documented in this encounter Results * DIFFERENTIAL, AUTOMATED (03/30/2024 1:57 PM EDT) WBC 10.17 4.00 - 10.80 K/uL 03/30/2024 2:04 PM EDT [facility] [place] 56-02 Neutrophils % 52.8 40.0 - 75.0 % 03/30/2024 2:04 PM EDT [facility] 56-02 Lymphocytes % 35.1 18.0 - 42.0 % 03/30/2024 2:04 PM EDT [facility] 56-02 Monocytes % 10.4 1.0 - 11.0 % 03/30/2024 2:04 PM EDT LABORATORY [facility] 56-02 Eosinophils % 1.4 0.0 - 6.0 % 03/30/2024 2:04 PM EDT LABORATORY [facility] 56-02 Basophils % 0.3 0.0 - 2.0 % 03/30/2024 2:04 PM EDT [facility] [place] [facility] 56-02 Absolute Neutrophils 5.37 1.80 - 7.70 K/uL 03/30/2024 2:04 PM EDT [facility] 56-02 Absolute Lymphocytes 3.57 1.00 - 4.80 K/ul 03/30/2024 2:04 PM EDT [facility] 56 Absolute Monocytes 1.06 0.00 - 1.10 K/uL 03/30/2024 2:04 PM EDT [facility] 56 Absolute Eosinophils 0.14 0.00 - 0.70 K/uL 03/30/2024 2:04 PM EDT [facility] 56 Absolute Basophils 0.03 0.00 - 0.20 K/uL 03/30/2024 2:04 PM EDT [facility] 56 Blood Venous blood specimen / Unknown Venipuncture / Unknown 03/30/2024 1:57 PM EDT 03/30/2024 1:57 PM EDT Raquel GRAJEDA LAB BLOOD ORDER [facility] [address] [place] [address] * (ABNORMAL) CBC (03/30/2024 1:57 PM EDT) WBC 10.17 4.00 - 10.80 K/uL 03/30/2024 2:04 PM EDT [facility] 56 RBC 4.81 3.85 - 5.15 M/uL 03/30/2024 2:04 PM EDT [facility] 56 HGB 11.5(L) 12.0 - 15.3 g/dL 03/30/2024 2:04 PM EDT [facility] 56 HCT 37.7 36.0 - 45.2 % 03/30/2024 2:04 PM EDT [facility] 56- MCV 78.4 81.5 - 97.5 fL 03/30/2024 2:04 PM EDT [facility] 56 MCH 23.9 27.0 - 34.0 pg 03/30/2024 2:04 PM EDT [facility] 56 MCHC 30.5 32.0 - 36.0 g/dL 03/30/2024 2:04 PM EDT [facility] 56 RDW 21.1 11.5 - 15.5 % 03/30/2024 2:04 PM EDT [facility] 56- PLT 385 140 - 400 K/uL 03/30/2024 2:04 PM EDT [facility] 56- MPV 9.5 6.6 - 11.1 fL 03/30/2024 2:04 PM EDT [facility] 56-02 Blood Venous blood specimen / Unknown Venipuncture / Unknown 03/30/2024 1:57 PM EDT 03/30/2024 1:57 PM EDT Raquel Mehta Mayito GRAJEDA LAB BLOOD ORDER [facility] 56 [facility] [address] documented in this encounter Visit Diagnoses Diagnosis Combined forms of age-related cataract of both eyes- Primary Other and combined forms of senile cataract Iron deficiency anemia due to chronic blood loss Iron deficiency anemia secondary to blood loss [...] Discussed due to patient's condition Care Teams Photo Studio Assistant Relationship Specialty Start Date End Date Maritza Lyles MD 200 [facility] [place] [address] PCP - General Internal Medicine 10/03/20 documented as of this encounter
--- OUTSIDE RECORDS SUMMARY | 2024-05-01 07:36 | External Medical Summary | Summary of Care ---
Author Name Unknown Organization [facility] Address [address] [place] [address] Phone [phone] Care Team Providers Care Clean Up Supervisor Name Role Phone Maritza Lyles MD Primary Care Provider + Encounter Details Date Type Department Care Team (Late st Contact Info) Description 04/02/2024 Telephone Hematology/Oncology, [facility] [address] [place] [address] Raquel Edmond CRNP 400 [place] [address] Allergies No known active allergiesdocumented as of this encounter (statuses as of 04/02/2024) Medications Medication Sig Dispensed Refills Start Date End Date Status Aspirin 81 MG Oral Capsule at bedtime. 05/23/2021 Active metFORMIN HCl 500 MG Oral Tablet (Glucophage)Indica tions:Type 2 diabetes mellitus with hemoglobin A1c goal of less than 7.0% ([facility]) Take 2 Tablets by mouth 2 times [...] yrs 11/16/2023,12/23/2022 Pneumococcal Conjugate Vacci ne, 20-valent ([id number]) 12/23/2022 Pneumococcal Polysaccharide PPV23 (Pneumovax) Seasonal Influenza, [...] Miscellaneous Notes * Telephone Encounter - Raquel Edmond CRNP [...] 04/04/2024 1:00 PM EDT Hospital Encounter OR [facility], Operating Room [facility] [address] [place] [phone] Cameron Molina DO 44 [place] [address] 04/04/2024 1:00 PM EDT - 04/04/2024 1:46 PM EDT Surgery OR [facility], Operating Room [facility] [address] [place] [phone] Cameron Molina DO 35 [place] [address] RIGHT EXTRACAPSULAR CATARACT REMOVAL WITH INTRAOCULAR LENS 04/05/2024 9:00 AM EDT Office Visit Ophthalmology, [facility] [address] [place] [address] Cameron Molina DO 51 [place] [address] 04/12/2024 9:30 AM EDT Office Visit Ophthalmology, [facility] 132 [facility] [place] [address] Cameron Molina, DO 21 [place] [address] 05/03/2024 3:45 PM EDT Office Visit Ophthalmology, [facility] 132 [facility] [place] [address] Cameron Molina, DO [address] [place] [address] 07/02/2024 3:00 PM EDT Laboratory Laboratory [facility] [address] [place] [phone] [place], Lab Scenery [address] [place] [address] 07/02/2024 3:30 PM EDT Office Visit Hematology/Oncolog y [facility] [address] [place], [place] [phone] Raquel Edmond CRNP [address] [place] [address] [place] [address] 03/29/2025 4:30 PM EDT Imaging Radiology [address] 132 [facility] [place] [address] Scheduled Procedures Name Priority Associated Diagnoses Date/Ti [...] this encounter Medical Devices Implanted Type Area Vp [employer] Device Identifier Shelf Expiration Date Model / Serial / Lot Lens [id number] 12.5mm+20.00 - [id number] - [id number] Implanted:Qty: 1 on 03/07/2024 by Cameron Molina DO at OR [facility] Left: Eye [employer] 10/19/2026 [id number] / [id number] / [id number] documented as of this encounter Visit Diagnoses [...] Discussed due to patient's condition Care Teams Clean Up Supervisor Relationship Specialty Start Date End Date Maritza Lyles MD 200 [facility] [place] [address] PCP - General Internal Medicine 10/03/20 documented as of this encounter
--- OUTSIDE RECORDS SUMMARY | 2024-05-01 07:36 | External Medical Summary | Summary of Care ---
Author Name Unknown Organization [facility] Address [address] [place] [address] Phone [phone] Care Team Providers Care Activities Director Scouting Name Role Phone Maritza Lyles MD Primary Care Provider + Encounter Details Date Type Department Care Team (Late st Contact Info) Description 04/02/2024 Telephone Hematology/Oncology, [facility] [address] [place] [address] Raquel Edmond CRNP [address] [place] [address] Allergies No known active allergiesdocumented as of this encounter (statuses as of 04/03/2024) Medications Medication Sig Dispensed Refills Start Date [...] as of this encounter (statuses as of 04/03/2024) Active Problems Problem Noted Date Diagnosed Date [...] as of this encounter (statuses as of 04/03/2024) Immunizations Name Administration Dates Next Due Hepatitis B, 20+ yrs 11/16/2023,12/23/2022 Pneumococcal Conjugate Vacci ne, 20-valent ([id number]) 12/23/2022 Pneumococcal Polysaccharide PPV23 (Pneumovax) Seasonal Influenza, [...] Ralph RN - 04/03/2024 10:03 AM EDT [place] plan for infed built and routed for [...] EDT Hospital Encounter OR [facility], Operating Room [facility] [address] [phone] Cameron Molina DO [address] [address] 04/04/2024 1:00 PM EDT - 04/04/2024 1:46 PM EDT Surgery OR OSS, Operating Room [facility] [address] [phone] Cameron Molina DO [address] [address] RIGHT EXTRACAPSULAR CATARACT REMOVAL WITH INTRAOCULAR LENS 04/05/2024 9:00 AM EDT Office Visit Ophthalmology, [facility] 132 [facility] [place] [address] Cameron Molina, DO [address] [address] 04/12/2024 9:30 AM EDT Office Visit Ophthalmology, [facility] 132 [facility] [place] [address] Cameron Molina, DO [address] [address] 05/03/2024 3:45 PM EDT Office Visit Ophthalmology, [facility] 132 [facility] [place] [address] Cameron Molina, DO [address] [address] 07/02/2024 3:00 PM EDT Laboratory Laboratory [facility] [address] [place] [phone] [facility] 200 [facility] [place] [address] 07/02/2024 3:30 PM EDT Office Visit Hematology/Oncolog y [facility] [address] [place] [phone] Raquel Edmond CRNP [address] [place] [address] [place] [address] 03/29/2025 4:30 PM EDT Imaging Radiology [address] 132 [facility] [place] [address] Scheduled Procedures Name Priority Associated Diagnoses Date/Ti [...] this encounter Medical Devices Implanted Type Area Sander Operator Device Identifier Shelf Expiration Date Model / Serial / Lot Lens [id number] 12.5mm+20.00 - [id number] - [id number] Implanted:Qty: 1 on 03/07/2024 by Cameron Molina DO at OR [facility] Left: Eye [employer]OM[employer] 10/19/2026 [id number] / [id number] / [id number] documented as of this encounter Visit Diagnoses [...] Discussed due to patient's condition Care Teams Activities Director Scouting Relationship Specialty Start Date End Date Maritza Lyles MD [address] [place] [address] PCP - General Internal Medicine 10/03/20 documented as of this encounter
--- OUTSIDE RECORDS SUMMARY | 2024-05-01 07:36 | External Medical Summary ---
Author Name Unknown Address Unknown Organization K09:[facility] [place] [address] Laboratory Report Ordering Provider Test Date Status ROSIE DONG 03/30/2024 13:57:13 Final Observation Date Value Abnormality Reference (Units ) Status SYNC LEUKOCYTES IN BLOOD BY AUTOMATED COUNT 03/30/2024 13:57:13 10.17 4.00-10.80 (K/uL) Final Segs 03/30/2024 13:57:13 52.8 40.0-75.0 (%) Final Lymphs % 03/30/2024 13:57:13 35.1 18.0-42.0 (%) Final Monos 03/30/2024 13:57:13 10.4 1.0-11.0 (%) Final Eosinophils 03/30/2024 13:57:13 1.4 0.0-6.0 (%) Final Basos 03/30/2024 13:57:13 0.3 0.0-2.0 (%) Final Absolute Segs 03/30/2024 13:57:13 5.37 1.80-7.70 (K/uL) Final Lymphs, absolute 03/30/2024 13:57:13 3.57 1.00-4.80 (K/ul) Final Monos, Abs 03/30/2024 13:57:13 1.06 0.00-1.10 (K/uL) Final Eos, Abs 03/30/2024 13:57:13 0.14 0.00-0.70 (K/uL) Final Basos, Abs 03/30/2024 13:57:13 0.03 0.00-0.20 (K/uL) Final Performing Location [facility] [place] [address]
--- OUTSIDE RECORDS SUMMARY | 2024-05-01 07:36 | External Medical Summary | Summary of Care ---
Author Name Unknown Organization [facility] Address [address] [facility] [address] Phone [phone] Care Team Providers Care Newspaper Publisher Name Role Phone Maritza Lyles MD Primary Care Provider + Reason for Visit * Reason Comments IV Therapy Venofer Encounter Details Date Type Department Care Team (Latest Contact Info) Description 02/23/2024 1:30 PM EDT Hem/Onc Treatment Hematology/Oncology Treatment, [address] [place] [address] Jeanie, Chair 2 Hem Onc [facility] [address] [place] [address] Iron deficiency anemia due to chronic blood loss* Allergies No known active allergiesdocumented as of this encounter (statuses as of 03/29/2024) Medications Medication Sig Dispensed Refills Start Date [...] as of this encounter (statuses as of 03/29/2024) Active Problems Problem Noted Date Diagnosed Date [...] as of this encounter (statuses as of 03/29/2024) Immunizations Name Administration Dates Next Due Hepatitis B, 20+ yrs 11/16/2023,12/23/2022 Pneumococcal Conjugate Vacci ne, 20-valent ([id number]) 12/23/2022 Pneumococcal Polysaccharide PPV23 (Pneumovax) Seasonal Influenza, PF, 6 M & above, IM , (FluLaval or Fluzone) 08/24/2023,09/24/2022 TDAP (age 10 and older)(Boostrix) 05/04/2022 Zoster Vaccine Recombinant (Shingrix) 05/04/2022 ,11/03/2021 01/01/2022 documented as of this encounter Social History Tobacco Use Types Packs/Day Years Used Date Smoking Tobacco: Never Smokeless Tobacco: Never Tobacco Cessation:Counseling Given: Not Answered Alcohol Use Standard Drinks/Week Comments Never 0 [...] Sign Reading Time Taken Comments Blood Pressure 151/90 02/23/2024 1:34 PM EDT Pulse 105 02/23/2024 1:34 PM EDT Temperature 36.8 C (98.2 F) 02/23/2024 1:34 PM ED T Respiratory Rate 16 02/23/2024 1:34 PM EDT Oxygen Saturation 92% 02/23/2024 1:34 PM EDT Inhaled Oxygen Concentration - - Weight - - Height - - Body Mass Index - - documented in this encounter Nursing Notes * Ana Paula Dawson LPN - 02/23/2024 1:34 PM EDT Patient arrived for Chair 7 for IV therapy Venofer. Vital signs are stable. IV access successful atthe left antecubital vein. IV line flushed with ease; IV fluids connected and infusing. Call larson within reach. Patient completed IV therapy Venofer. IV access discontinued; site cleaned and bandaged. Patient will return in 1 week. Patient discharged in stable condition documented in this encounter Plan of Treatment Upcoming Encounters Date Type Department Care Team (Late st Contact Info) Description 03/30/2024 1:00 PM EDT Office Visit Hematology/Oncolog y [facility] [place] 200 [facility] [place] [phone] Raquel Edmond CRNP 400 [facility] [place] [id number] 04/04/2024 1:00 PM EDT Hospital Encounter OR [facility], Operating Room [facility] 132 [facility] [place] [phone] Cameron Molina, DO 21 [facility] [place] [address] 04/04/2024 1:00 PM EDT - 04/04/2024 1:46 PM EDT Surgery OR [facility], Operating Room [facility] 132 [facility] [place] [phone] Cameron Molina, DO [address] [address] RIGHT EXTRACAPSULAR CATARACT REMOVAL WITH INTRAOCULAR LENS 04/05/2024 9:00 AM EDT Office Visit Ophthalmology, [facility] 132 [facility] [place] [address] Cameron Molina, DO [address] [address] 04/12/2024 9:30 AM EDT Office Visit Ophthalmology, [facility] 132 [facility] [place] [address] Cameron Molina, DO [address] [address] 05/03/2024 3:45 PM EDT Office Visit Ophthalmology, [facility] 132 [facility] [place] [address] Cameron Molina, DO [address] [address] 03/29/2025 4:30 PM EDT Imaging Radiology [facility] 132 [facility] [place] [address] Scheduled Procedures Name Priority Associated Diagnoses Date/Ti [...] deficiency anemia secondary to blood loss (chronic) Combined forms of age-related cataract of both eyes- Primary Other and combined forms of senile cataract Cataract Unspecified cataract Screening mammogram for breast cancer documented in this encounter Administered Medications Inactive Administered Medications - up to 3 most recent administrations Medication Order MAR Action Action Date Dose Rate Site Iron Sucrose (Venofer) 300 mg in NSS 250 mL ivpb 300 mg, IV Piggyback, ONCE, 1 dose, On Fariba 02/23/24 at 1500, Administer over 90 Minutes Start Infusion 02/23/2024 1:45 PM EDT 300 mg 180 mL/hr NSS infusion 500 mL, Intravenous, at 50 mL/hr, CONTINUOUS, Starting on Fariba 02/23/24 at 1430, Until Fariba 02/23/24 at 1934 Start Infusion 02/23/2024 1:31 PM EDT 500 mL 50 mL/hr documented in [...] Discussed due to patient's condition Care Teams Newspaper Publisher Relationship Specialty Start Date End Date Maritza Lyles MD [address] [place] [address] [place] [address] PCP - General Internal Medicine 10/03/20 documented as of this encounter
--- OUTSIDE RECORDS SUMMARY | 2024-05-01 07:36 | External Medical Summary ---
Author Name Unknown Address Unknown Organization K01:[facility] - [address] [place] [address] Laboratory Report Ordering Provider Test Date Status ROSIE DONG 03/30/2024 13:57:13 Final Observation Date Value Abnormality Reference (Units ) Status Ferritin 03/30/2024 13:57:13 79 13-150 (ng /mL) Final Postmenopausal women have hi gher ferritin levels than pre-menopausal women. The above reference interval is based on pre-menopausal women. Performing Location [facility] - [address] [place] [address]
--- OUTSIDE RECORDS SUMMARY | 2024-05-01 07:36 | External Medical Summary | Summary of Care ---
Author Name Unknown Organization [facility] Address [address] [place] [facility] [place] [address] Phone [phone] Care Team Providers Care Cosmetic Sales Advisor Name Role Phone Maritza Lyles MD Primary Care Provider + Reason for Visit * Reason Onset Date Comments Appointment 03/30/2024 Encounter Details Date Type Department Care Team (Late st Contact Info) Description 03/30/2024 Telephone Hematology/Oncology [facility] [place] 200 [facility] [phone] Raquel Edmond CRNP [address] [place] [address] Appointment Allergies No known active allergiesdocumented as of this encounter (statuses as of 03/30/2024) Medications Medication Sig Dispensed Refills Start Date End Date Status Aspirin 81 MG Oral Capsule at bedtime. 05/23/2021 Active metFORMIN HCl 500 MG Oral Tablet (Glucophage)Indica tions:Type 2 diabetes mellitus with hemoglobin A1c goal of less than 7.0% ([facility]) Take 2 Tablets by mouth [...] yrs 11/16/2023,12/23/2022 Pneumococcal Conjugate Vacci ne, 20-valent ([id number]) 12/23/2022 Pneumococcal Polysaccharide PPV23 (Pneumovax) Seasonal Influenza, [...] PM EDT Patient Demographics for EDITA LAURA [[id number]] date: 1965 SSN: [id number] Age: 58 yrs Sex: Female Home phone: Work phone: Address: [address] [place] [phone] E-mail: [email or web address] Permanent comments: Subcontract Manager needed Referral Information Patient: Edita Laura [[id number]] Referral ID: [id number] Status: Authorized Type: Ancillary Services Class: Internal Reason(s): Ancillary Services Required [] Diagnosis: D50.0 (ICD-10-CM) - Iron deficiency anemia due to chronic blood loss Procedure(s): [id number] - COLONOSCOPY, GI REFERRAL OP Start: Mar [...] HMO XC-Q1 Patient Demographics for EDITA LAURA [[id number]] date: 1965 SSN: [id number] Age: 58 yrs Sex: Female Home phone: Work phone: Address: [address] [place] [address] [place] [phone] E-mail: [email or web address] Permanent comments: Subcontract Manager needed Referral Information Patient: Edita Laura [[id number]] Referral ID: [id number] Status: Authorized Type: Ancillary Services Class: Internal Reason(s): Ancillary Services Required [] Diagnosis: D50.0 (ICD-10-CM) - Iron deficiency anemia due to chronic blood loss Procedure(s): [id number] - UPPER ENDOSCOPY GI REFERRAL OP Start: [...] [place] [phone] Cameron Molina, [address] [address] 04/04/2024 1:00 PM EDT - 04/04/2024 1:46 PM EDT Surgery OR [facility], Operating Room [facility] [address] [place] [phone] Cameron Molina, DO [address] [address] RIGHT EXTRACAPSULAR CATARACT REMOVAL WITH INTRAOCULAR LENS 04/05/2024 9:00 AM EDT Office Visit Ophthalmology, [address] [place] [address] Cameron Molina, DO [address] [address] 04/12/2024 9:30 AM EDT Office Visit Ophthalmology, [address] [place] [address] Cameron Molina, DO [address] [address] 05/03/2024 3:45 PM EDT Office Visit Ophthalmology, [address] [place] [address] Cameron Molina, DO [address] [address] 07/02/2024 3:00 PM EDT Laboratory Laboratory [facility] [address] [place] [phone] Jeanie [facility] [address] [facility] [place] [address] 07/02/2024 3:30 PM EDT Office Visit Hematology/Oncolog y [facility] [place] [address] [place] [phone] Raquel Edmond CRNP 400 [facility] [place] [address] 03/29/2025 4:30 PM EDT Imaging Radiology [address] [place] [address] Scheduled Procedures Name Priority Associated Diagnoses Date/Ti [...] this encounter Medical Devices Implanted Type Area Roll Up Guider Operator Device Identifier Shelf Expiration Date Model / Serial / Lot Lens [id number] 12.5mm+20.00 - [id number] - [id number] Implanted:Qty: 1 on 03/07/2024 by Cameron Molina DO at OR [facility] Left: Eye [employer] LOMB 10/19/2026 [id number] / [id number] / [id number] documented as of this encounter Advance Directives [...] Discussed due to patient's condition Care Teams Cosmetic Sales Advisor Relationship Specialty Start Date End Date Maritza Lyles MD 200 [place] [address] PCP - General Internal Medicine 10/03/20 documented as of this encounter
--- OUTSIDE RECORDS SUMMARY | 2024-05-01 07:37 | External Medical Summary | Summary of Care ---
Author Name Unknown Organization [facility] [address] [address] Phone [phone] Care Team Providers Care Central Lab Technician Name Role Phone Maritza Lyles MD Primary Care Provider + Reason for Visit * Auth/Cert Specialty Diagnoses / Procedures Referred By Gus ramirez Referred To Contact Diagnoses Cataract Cataract [H26.9] Procedures REMOVE CATARACT, INSERT LENS PROSTH LEFT EXTRACAPSULAR CATARACT REMOVAL WITH INTRAOCULAR LENS Cameron Molina DO [address] [place] [address] Or [facility] [address] [place] [address] Referral ID Status Reason Start Date Expiration Date Visits Re quested Visits Authorized [id number] Encounter Details Date Type Department Care Team (Late st Contact Info) Description 03/07/2024 12:00 PM EDT - 03/07/2024 3:03 PM EDT Hospital Encounter OR [facility], Operating Room [facility] [address] [place] [address] Cameron Molina DO [address] [address] Discharge Disposition: Home - Self Care Allergies No known active allergiesdocumented as of this encounter (statuses as of 03/08/2024) Medications Medication Sig Dispensed Refills Start Date End Date Status Aspirin 81 MG Oral Capsule TAKE 1 TABLET BY MOUTH EVERY DAY 05/23/2021 Active metFORMIN HCl 500 MG Oral Tablet (Glucophage)Indica tions:Type 2 diabetes mellitus with hemoglobin A1c goal of less than 7.0% (HCC) Take 2 Tablets by mouth 2 times a day with morning and evening meals. 360 Tablet 3 11/16/2022 Active Furosemide 20 MG Oral Tablet (Lasix) Take 1 Tablet by mouth in the morning. 90 Tablet 3 02/17/2023 Active Omeprazole 40 MG Oral Capsule Delayed [...] as of this encounter (statuses as of 03/08/2024) Active Problems Problem Noted Date Diagnosed Date [...] as of this encounter (statuses as of 03/08/2024) Immunizations Name Administration Dates Next Due Hepatitis B, 20+ yrs 11/16/2023,12/23/2022 Pneumococcal Conjugate Vacci ne, 20-valent ([id number]) 12/23/2022 Pneumococcal Polysaccharide PPV23 (Pneumovax) Seasonal Influenza, [...] Sign Reading Time Taken Comments Blood Pressure 121/68 03/07/2024 2:30 PM EDT Pulse 83 03/07/2024 2:15 PM EDT Temperature 36.2 C (97.2 F) 03/07/2024 2:30 PM ED T Respiratory Rate 18 03/07/2024 2:30 PM EDT Oxygen Saturation 96% 03/07/2024 2:30 PM EDT Inhaled Oxygen Concentration - - Weight 84.4 kg (186 lb) 03/07/2024 12:35 PM EDT Height 156.2 cm (5' 1.5") 03/07/2024 12:35 PM ED T Body Mass Index 34.58 03/07/2024 12:35 PM EDT documented in this encounter Discharge Instructions * Discharge Instr - AVS* Cameron Molina, - 03/07/2024 2:12 PM EDT Discharge Date: 03/07/24 Check your Patient Education Brochure for further information. If you have any further questions orconcerns after discharge and before 4:00 p.m. please contact your surgeons (Dr. Cameron Molina) office at [phone]. This is the [place] office and during the day it will give you an opportunity to talk to our ophthalmology area secretary. After 4:00 p.m. or on the weekend, call the [facility] at ([phone]) and ask for the cardiopulmonary technician brush fabrication supervisor. Please let the cardiopulmonary technician brush fabrication supervisor know you had surgery with Dr. Molina [...] when arrive home Moxifloxacin: One Drop to left eye 4 times per day Prednisolone acetate (shake well): One Drop to left eye 4 times per day Erythromycin ophthalmic ointment - Instill at bedtime or as needed for pain/discomfort left eye Please use the Moxifloxacin drop first [...] tomorrow, at the Eye clinic in the [facility] on the second floor. Please show up at your scheduled appointment time. B. Please Bring the blue bag with both eyedrops with you to post-op visit tomorrow. documented in this encounter Progress Notes * Cameron Molina DO - 03/07/2024 2:12 PM EDT [facility] [address] [place] [address] OUTPATIENT SURGERY DISCHARGE SUMMARY NOTE Name: Taj Laura Location: OR [facility]/OR Date: 03/07/2024 Time: 2:12 PM Surgery Date: 03/07/2024 Procedure: LEFT EXTRACAPSULAR CATARACT REMOVAL WITH INTRAOCULAR LENS Left Surgeon: Cameron Molina DO Discharge Diagnosis: same After examination of this patient, I have determined she is ready for discharge to home when the patient meets criteria. Discharge instructions were given to the patient. documented in this encounter H&P Notes * Cameron Molina DO - 03/07/2024 1:14 PM EDT HISTORY & PHYSICAL INTERVAL NOTE [facility] [place] [address] [place] [address] History and Physical Update: Name: Taj Laura Location: OR [facility]/OR Date: 03/07/2024 Time: 1:14 PM DATE OF HISTORY AND PHYSICAL: 02/09/24 BP: 139 mmHg/76 mmHg (03/07/24 1235) Pulse: 83 (03/07/24 1235) Resp: 18 (03/07/24 1235) Temp: 36.11 C (03/07/24 1235) Temp Summary: Temp Min: 36.1 C (97 F) Max: 36.1 C (97 F) SpO2: 96 % (03/07/24 1235) O2 flow rate: Supplemental O2 Delivery: Heart Exam: regular rate and rhythm Lung Exam: clear to auscultation bilaterally Other Pertinent Physical Exam: no eye changes I have reviewed the H&P previously performed and examined the patient today. There are no new findings noted. * Cameron Molina DO - 02/29/2024 11:25 AM EDT Images from the original note were not included. See PCP clearance. Office Visit 02/09/2024 Family Practice [facility] Angelika Mena PA-C Family Medicine Age-related cataract of both eyes, unspecified age-related cataract type +6 more Dx pre-op exam; Referred by Cameron Moilna DO Reason for Visit Progress Notes Angelika Mena PA-C (Physician Transportation Maintenance Supervisor - Certified) Family Medicine Expand All Collapse All[]Expand All by Default Subjective: Taj Laura is a 58 year old female. Presents at the request of Dr Molina for medical clearance for cataract removal. PHM: Problem List Patient Active Problem List Diagnosis NEELAM (generalized anxiety disorder) Type 2 diabetes mellitus with hemoglobin A1c goal of less than 7.0% (HCC) Hyperlipidemia with target LDL less than 100 HTN, goal below 130/80 Gastroesophageal reflux disease without esophagitis Stress-induced cardiomyopathy Combined forms of age-related cataract of both eyes Current Medications Current Outpatient Medications Medication Sig Dispense Refill Aspirin 81 MG Oral Capsule TAKE 1 TABLET BY MOUTH EVERY DAY metFORMIN HCl 500 MG Oral Tablet (Glucophage) Take 2 Tablets by mouth 2 times a day with morning and evening meals. 360 Tablet 3 Furosemide 20 MG Oral Tablet (Lasix) Take 1 Tablet by mouth in the morning. 90 Tablet 3 Omeprazole 40 MG Oral Capsule [...] BY MOUTH EVERY DAY IN THE MORNING 90Tablet 3 No current facility-administered medications for this visit. Past Medical History Past Medical History: Diagnosis Date Coronary artery disease involving akutan coronary artery of akutan heart without angina pectoris NEELAM (generalized anxiety disorder) Gastroesophageal reflux disease without esophagitis Hyperlipidemia LDL goal <100 Primary hypertension Type 2 diabetes mellitus without complication, without long-term current use of insulin (HCC) Past Surgical History Past Surgical History: Procedure Laterality Date COLONOSCOPY, DIAGNOSTIC (RECTUM) 10/08/2020 normal, repeat 10 yrs / COLONOSCOPY FLEXIBLE PROXIMAL DIAGNOSTIC performed by Khushi Interiano MD at ENDOSCOPY [facility] EGD, FLEXIBLE, DIAGNOSTIC 08/03/2021 duodenitis, gastriti, + H pylori / ESOPHAGOGASTRODUODENOSCOPY (EGD), FLEXIBLE, TRANSORAL, DIAGNOSTIC performed by Khushi Interiano MD at ENDOSCOPY [facility] Allergies Review of patient's allergies indicates: No Known Allergies Family History No family history on file. Family Status No family status information on file. Social History - Alcohol and Tobacco Use Social History Tobacco Use Smoking status: Never Smokeless tobacco: Never Substance Use Topics Alcohol use: Never Vaping History Vaping/E-Cigarette Use Vaping/E-Cigarette Use Never User Vaping History Vaping/E-Cigarette Substances Vaping History Vaping/E-Cigarette Devices Review of Systems: General: No change in weight, No weakness, No fatigue, and No fevers, sweats, or chills Head: No significant headache and No recent significant head injury Eyes: No eye pain, redness, discharge, or excessive tearing, No diplopia, No h/o glaucoma, + wears glasses, and + h/o cataracts Ears: No recent change in hearing, No tinnitus or vertigo, No ear pain, and No ear discharge Nose: No h/o frequent colds or sinusitis, No nasal stuffiness, No h/o hay fever, and No significantepistaxis Throat/Oropharynx: No teeth or gum problems, No bleeding gums, No tongue complaints, No sore throat, and No recent change in voice or hoarseness Neck: No complaint of lumps in neck, No swollen glands, No recent swelling in thyroid area, and No significant pain in neck Breast: No new breast lumps, No severe breast pain, No nipple discharge, No recent change in shape/contor, and Patient does perform monthly self breast exam Respiratory: No cough, sputum, or hemoptysis, No wheezing, No shortness of breath, and No recent change in breathing Cardiac: No chest pain, No shortness of breath, No dyspnea on exertion, No orthopnea, No paroxysmalnocturnal dyspnea, No edema, No palpitations, and No syncope Gastrointestinal: No dysphagia, No significant heartburn, No significant change in appetite, No nausea, vomiting, diarrhea, or constipation, No hematemesis, No blood in stools or black tarry stools, No abdominal bloating or early satiety, and No abdominal pain Urinary: No urinary frequency, No dysuria, No hematuria, No urinary urgency, No polyuria, No nocturia, No incontinence, No hesitancy, and No sensation of incomplete voiding Hematologic: No anemia, No easy bruising or abnormal bleeding, and No history of transfusion Neurologic: No fainting or blackouts, No seizures, No paralysis or focal weakness, No numbness or tingling, No tremors, and No significant problems with memory Skin: No edema, No rash, and No itching Objective: BP 120/64 | Pulse 89 | Temp 36.7 C (98.1 F) (Tympanic) | Resp 16 | Ht 1.562 m (5' 1.5") | Wt 84.4 kg (186 lb) | SpO2 97% | BMI 34.58 kg/m | BSA 1.91 m Physical Exam: General: alert, healthy, no distress, well nourished, well developed, comfortable, and cooperative Head: Normocephalic, No masses, lesions, tenderness or abnormalities Eye Exam: PERRLA, extraocular movements intact, conjunctiva are pink and non- injected, sclera clear Ears: External ears normal, Canals clear, TM's Normal Nose: no mucosal erythema, no mucosal edema, no purulent discharge Oropharynx: no exudate, no erythema, lips, buccal mucosa, and tongue normal, and mucous membranes are moist Neck: supple, no adenopathy, no bruits, thyroid normal size, non-tender, without nodularity Heart: regular rate & rhythm, no murmur, and no gallops Lungs: chest symmetric with normal AP diameter, no chest deformities noted, normal respiratory rateand rhythm, no chest wall tenderness, diaphragmatic excursion normal, lungs clear to auscultation Abdomen: abdomen soft, non-tender, normal bowel sounds, no masses or organomegaly, no rebound or guarding, no CVA tenderness, and no bladder distention identified Back: back symmetric, no curvature, no costovertebral angle tenderness, range of motion is normal, no skin lesions, erythema or scars, no tenderness to percussion or palpation, Normal heel walk and toe walk, without evidence of muscle weakness Extremities: less than 2 second capillary refill, no joint deformities, effusion, or inflammation, no edema, no skin discoloration, no clubbing, no cyanosis Skin: skin color, texture, turgor are normal, no rashes or significant lesions ASSESSMENT: Diagnosis for procedure: cataracts Preoperative Examination PLAN: Patient is medically cleared. Perioperative recommendations regarding medications and treatment include medications as directed. This assessment was forwarded to Dr Molina. Angelika Mena PA-C documented in this encounter Nursing Notes * Aide Guzman, RN - 03/07/2024 3:00 PM EDT Patient is alert, pain free, and tolerating po fluids prior to discharge. Patient has been visited by Dr. Sheehan Patient /daughter have received and demonstrates understanding of discharge instructions with use of placement officer. No drainage from left eye. Eye shield in placeover left eye @ discharge and sunglasses on @ discharge. Patient is transported via w/c to private auto accompanied by staff. * Aide Guzman RN - 03/07/2024 2:15 PM EDT Received to PACU II. Arouses to verbal stimuli. Eye patch in place over left eye. No drainage notedfrom left eye. * Patti Edwards RN - 03/07/2024 12:36 PM EDT Surgical consent verified with patient. Patient agrees with listed procedure and verified signature. documented in this encounter OR Notes * OR Surgeon - Cameron Molina DO - 03/07/2024 2:13 PM EDT [facility] [address] [address] OPERATIVE REPORT Name: Taj Laura Date: 03/07/2024 Time: 2:13 PM Service: Ophthalmology Date of Operation: 03/07/2024 Pre-op Diagnosis: Nuclear age related Cataract Left eye Post-op Diagnosis: Nuclear age related Cataract Left eye Surgeon: Cameron Molina DO Assistants: None Anesthesia: Monitored Local Anesthesia with Sedation Operation: Cataract extraction to the Left eye with implantation of posterior intraocular lens. Findings: None Estimated Blood Loss: minimal IV Intake:<100 ml Urine output: 0 ml Drains: 0 INDICATIONS AND PERTINENT HISTORY: The patient has a visually significant cataract of the Left eye.The proposed procedure was discussed in detail with the patient. All feasible options were reviewedwith the appropriate indications and expected outcomes. Specimens and Disposition: None Complications: none Condition: Stable Description of Operation: The patient was identified with two identifiers and the procedure verified. Proper consent was verified. Antibiotic and dilating drops were instilled in the Left eye pre-operatively in the Pre-operative holding area. Fifteen minutes prior to transfer to the Operating Room, topical proparacaine drops and topical 2% lidocaine jelly were placed over the Left eye. The patient was then taken back to the Operating Room. Ophthalmic Betadine 5% was placed in the superior and inferior cul-de-sacs of theLeft eye. The Left eye was then prepped with 10% povidone-iodine and draped in the usual sterile fashion. After the lid speculum was inserted, a paracentesis incision was made at the 5 o'clock position with a sharp blade. Trypan blue was instilled. This was washed with MPF lidocaine. The anterior chamber was then refilled with Viscoat. The main wound was then created at 3' using the 2.4mm phacokeratome blade. The blade was dull and therefore the entry into the wound was irregular - it did not cause intra-operative complications. A continuous curvilinear capsulorrhexis was then performed initia lly with a cystotome, then completed with Utrada forceps. Hydrodissection and hydrodelineation wereachieved with balanced salt solution through a 27G cannula. The phacoemulsification handpiece was utilized to remove the lens nucleus with a [id number] technique. Residual cortical material was removed with the irrigating and aspirating device. The capsular bag was re-formed with viscoelastic. An [id number] 20.0 diopters in power (selected after review and interpretation of IOL measurements), acrylic foldable lens was placed into the capsular bag uneventfully and rotated into position with aSinskey hook. It was noted to be in a central and stable position. The residual viscoelastic was irr igated and aspirated from the anterior chamber. Stromal hydration was applied to the wound. The anterior chamber was re-formed with balanced salt solution. The wounds were checked with Weck-cels and found to be watertight. Due to the irregular shape of the entry wound of the clear corneal incision - a 10-0 nylon was placed along the inferior edge of the wound. The knot was tied, rotated, and buried. The lid speculum was then removed. Brimonidine, prednisolone, ocuflox drops and erythromycin ophointment were instilled in the eye. The patient tolerated the procedure well. There were no complications I performed the procedure Cameron Molina DO 03/07/2024 2:13 PM documented in this encounter Plan of Treatment Upcoming Encounters Date Type Department Care Team (Late st Contact Info) Description 03/08/2024 8:45 AM EDT Office Visit Ophthalmology, [facility] [address] [facility] [place] [address] Cameron Molina DO 21 [facility] [place] [address] 03/08/2024 1:15 PM EDT Imaging Radiology [address] [facility] [place] [address] 03/09/2024 1:00 PM EDT Hem/Onc Treatment Hematology/Oncolog [address], [address] [phone] Jeanie, Chair 5 Hem Onc [address] [place] [address] 03/15/2024 1:00 PM EDT Hem/Onc Treatment Hematology/Oncolog y Treatment, [address] [id number] Jeanie, Chair 10 [facility] [address] [place] [address] [place] [address] 03/30/2024 1:00 PM EDT Office Visit Hematology/Oncolog y [facility] Jeanie [address] [place] [phone] Raquel Edmond CRNP [address] [facility] [place] [address] 04/04/2024 1:00 PM EDT [facility] En[facility] [place] [address] Cameron Molina, DO [address] [place] [address] 04/04/2024 1:00 PM EDT - 04/04/2024 1:46 PM EDT Surgery OR [facility], Operating Room [facility] [place] [address] Cameron Molina, DO [address] [place] [address] RIGHT EXTRACAPSULAR CATARACT REMOVAL WITH INTRAOCULAR LENS 04/05/2024 9:00 AM EDT Office Visit Ophthalmology, [facility] [address] [facility] [place] [address] Cameron Molina, [address] [place] [address] 04/12/2024 9:30 AM EDT Office Visit Ophthalmology, [facility] [address] [facility] [place] [address] Cameron Molina, [address] [place] [address] 05/03/2024 3:45 PM EDT Office Visit Ophthalmology, [facility] [address] [facility] [place] [address] Cameron Molina, [address] [place] [address] Scheduled Orders Name Type Priority Associated Diagnoses Orde r Schedule GLUCOSE METER, POINT OF CARE (COMMUNICATION ORDER) Point of Care Testing Routine As Needed until discontinued starting 03/07/2024 Scheduled Procedures Name Priority Associated Diagnoses Date/Ti me EXTRACAPSULAR CATARACT REMOVAL WITH INTRAOCULAR LENS Cataract 04/04/2024 1:00 PM EDT COLONOSCOPY FLEXIBLE PROXIMAL DIAGNOSTIC Recall Screen for colon cancer Health Maintenance Due Date Last Done Comments Depression Screening 1976 Pap Smear 1985 Cervical Cancer Screening 1994 HPV/Co-Test 1994 Cologuard 2009 Fecal Occult Blood Test 2009 Sigmoidoscopy 2009 COVID-19 Vaccine ( - 2022- season) 2023 12/23/2020, 12/02/2020 Albumin/Creatinine Ratio 10/04/2023 023, 11/03/2021, 09/09/2020, Additional history exists Mammogram 12/30/2023 12/29/2022, 12/29/2022 Hepatitis B (3 of 3 - 19+ 3-dose series) 01/11/2024 11/16/2023, 12/23/2022 HbA1c 08/16/2024 02/14/2024, 06/19, 10/04/2022, Additional history [...] (6 to 64 Years) Completed 12/23/2022, 11/03/2021 Influenza Vaccine (FLU shot) Completed 08/24/2023, 09/24/2022 GARDASIL-HPV IMMUNIZATION SERIES Aged Out No longer eligible based on patient's age to complete this topic MENINGOCOCCAL (MENACTRA/MENVEO) Aged Out No longer eligible based on patient's age to complete this topic documented as of this encounter Medical Devices Implanted Type Area Powder Coater Device Identifier Shelf Expiration Date Model / Serial / Lot Lens [id number] 12.5mm+20.00 - [id number] - [id number] Implanted:Qty: 1 on 03/07/2024 by Cameron Molina DO at OR [facility] Left: Eye [employer] 10/19/2026 [id number] / [id number] / [id number] documented as of this encounter Procedures Procedure Name Priority Date/Time Associated Diagnosis Comments GLUCOSE METER, POINT OF CARE BLAKE 03/07/2024 12:17 PM EDT documented in this encounter Results * GLUCOSE METER, POINT OF CARE (03/07/2024 12:17 PM EDT) Glucose Meter 109 70 - 120 mg/dL 03/07/2024 12:26 PM EDT LABORATORY [facility] 5700 Blood Whole blood specimen / Unknown 03/07/2024 12:17 PM EDT 03/07/2024 12:26 PM EDT Cameron Molina DO LAB POINT OF CARE TE ST DOCKED DEVICE UNSOLICITED RESULTS LABORATORY [facility] [place] [address] [place] [id number] documented in this encounter Visit Diagnoses Diagnosis Combined forms of age-related cataract of both eyes- Primary Other and combined forms of senile cataract After cataract not obscuring vision, left- Primary Screening mammogram for breast cancer Cataract Unspecified cataract documented in this encounter Administered Medications Inactive Administered Medications - up to 3 most recent administrations Medication Order MAR Action Action Date Dose Rate Site Acetaminophen (Tylenol) tab 650 mg 650 mg, Oral, PRN Pain, Mild, Starting on Tue03/07/24 at 1421, Until Tue03/07/24 at 1918, For 1 dose, Maximum of 4 grams (4000 mg) per day., Post-op Diclofenac Sodium (Voltaren) 0.1 % ophthalmic solution 1 Drop 1 Drop, Left eye, Q5 MINUTES, First dose on Tue03/07/24 at 1245, Last dose on Tue03/07/24 at 1255, For 3 doses, PRE-OP: One drop to left eye every 5 minutes for 3 doses, Pre-Op Given 03/07/2024 12:42 PM EDT 1 Drop Given 03/07/2024 12:37 PM EDT 1 Drop Given 03/07/2024 12:32 PM EDT 1 Drop isolyte-S pH 7.4 infusion Intravenous, at 10 mL/hr, Plasma-LYTE 148, isolyte-S, and isolyte-S pH 7.4 are considered equivalent - including for MAR barcode scanning., CONTINUOUS, Starting on Tue03/07/24 at 1245, Until Tue03/07/24 at 1918, Pre-Op Continue from Pre-Op 03/07/2024 1:27 PM EDT 10 mL/hr New Bag 03/07/2024 12:40 PM EDT 10 mL/hr Lidocaine urethral/mucosal 2 % gel 2 mL Topical, ONCE, 1 dose, On Tue03/07/24 at 1245, 15 minutes prior to scheduled surgery time, apply 2 ml to superior and inferior fornices left eye & tape eyes shut., Pre-Op Given 03/07/2024 12:42 PM EDT 2 mL moxifloxacin (Vigamox) 0.5 % ophthalmic solution 1 Drop 1 Drop, Left eye, Q5 MINUTES, First dose on Tue03/07/24 at 1245, Last dose on Tue03/07/24 at 1255, For 3 doses, PRE-OP: One drop to left eye every 5 minutes for 3 doses, Pre-Op Given 03/07/2024 12:42 PM EDT 1 Drop Given 03/07/2024 12:37 PM EDT 1 Drop Given 03/07/2024 12:32 PM EDT 1 Drop prednisoLONE Acetate (Pred Forte) 1 % ophthalmic suspension 1 Drop 1 Drop, Left eye, Q5 MINUTES, First dose on Tue03/07/24 at 1245, Last dose on Tue03/07/24 at 1255, For 3 doses, PRE-OP: One drop to left eye every 5 minutes for 3 doses., Pre-Op Given 03/07/2024 12:42 PM EDT 1 Drop Given 03/07/2024 12:37 PM EDT 1 Drop Given 03/07/2024 12:32 PM EDT 1 Drop proparacaine (Alcaine) 0.5 % ophthalmic solution 1 Drop 1 Drop, Left eye, ONCE, On Tue03/07/24 at 1245, For 1 dose, PRE-OP: 15 minutes prior to scheduled surgery time for 1 dose, Pre-Op Given 03/07/2024 12:3 2 PM EDT 1 Drop tropicamide 1%-cyclopentolate 1%-phenylephrine 2.5% ophthalmic solution 1 Drop 1 Drop, Left eye, Q5 MINUTES, First dose on Tue03/07/24 at 1245, Last dose on Tue03/07/24 at 1255, For 3 doses Given 03/07/2024 12:42 PM EDT 1 Drop Given 03/07/2024 12:37 PM EDT 1 Drop Given 03/07/2024 12:32 PM EDT 1 Drop documented in this encounter Active and Recently Administered Medications Times are shown in EDT. Scheduled Medication Order 03/05/2024 03/06/2024 03/07/2024 Diclofenac Sodium (Voltaren) 0.1 % ophthalmic solution 1 Drop (COMPLETED) 1 Drop, Left eye, Q5 MINUTES, First dose on Tue03/07/24 at 1245, Last dose on Tue03/07/24 at 1255, For 3 doses, PRE-OP: One drop to left eye every 5 minutes for 3 doses, Pre-Op 1232 (Given - Provid er: Patti Edwards RN)[id number] (Given - Provider: Patti Edwards RN)1242 (Given - Provider: Patti Edwards RN) Lidocaine urethral/mucosal 2 % gel 2 mL (COMPLETED) Topical, ONCE, 1 dose, On Tue03/07/24 at 1245, 15 minutes prior to scheduled surgery time, apply 2 ml to superior and inferior fornices left eye & tape eyes shut., Pre-Op 1242 (Given - Provid er: Patti Edwards RN) moxifloxacin (Vigamox) 0.5 % ophthalmic solution 1 Drop (COMPLETED) 1 Drop, Left eye, Q5 MINUTES, First dose on Tue03/07/24 at 1245, Last dose on Tue03/07/24 at 1255, For 3 doses, PRE-OP: One drop to left eye every 5 minutes for 3 doses, Pre-Op 1232 (Given - Provid er: Patti Edwards RN)1237 (Given - Provider: Patti Edwards RN)1242 (Given - Provider: Patti Edwards RN) prednisoLONE Acetate (Pred Forte) 1 % ophthalmic suspension 1 Drop (COMPLETED) 1 Drop, Left eye, Q5 MINUTES, First dose on Tue03/07/24 at 1245, Last dose on Tue03/07/24 at 1255, For 3 doses, PRE-OP: One drop to left eye every 5 minutes for 3 doses., Pre-Op 1232 (Given - Provid er: Patti Edwards RN)1237 (Given - Provider: Patti Edwards RN)1242 (Given - Provider: Patti Edwards RN) proparacaine (Alcaine) 0.5 % ophthalmic solution 1 Drop (COMPLETED) 1 Drop, Left eye, ONCE, On Tue03/07/24 at 1245, For 1 dose, PRE-OP: 15 minutes prior to scheduled surgery time for 1 dose, Pre-Op 1232 (Given - Provid er: Patti Edwards RN) tropicamide 1%-cyclopentolate 1%-phenylephrine 2.5% ophthalmic solution 1 Drop (COMPLETED) 1 Drop, Left eye, Q5 MINUTES, First dose on Tue03/07/24 at 1245, Last dose on Tue03/07/24 at 1255, For 3 doses 1232 (Given - Provid er: Patti Edwards RN)1237 (Given - Provider: Patti Edwards RN)1242 (Given - Provider: Patti Edwards RN) Continuous Medication Order 03/05/2024 03/06/2024 03/07/2024 isolyte-S pH 7.4 infusion Intravenous, at 10 mL/hr, Plasma-LYTE 148, isolyte-S, and isolyte-S pH 7.4 are considered equivalent - including for MAR barcode scanning., CONTINUOUS, Starting on Tue03/07/24 at 1245, Until Tue03/07/24 at 1918, Pre-Op 1240 (New Bag - Prov ider: Patti Edwards RN)1327 (Continue from Pre-Op - Provider: Mynor Lerma CRNA)1410 (Anes Intra-Op Fluid - Provider: Mynor Lerma CRNA) PRN Medication Order 03/05/2024 03/06/2024 03/07/2024 Acetaminophen (Tylenol) tab 650 mg 650 mg, Oral, PRN Pain, Mild, Starting on Tue03/07/24 at 1421, Until Tue03/07/24 at 1918, For 1 dose, Maximum of 4 grams (4000 mg) per day., Post-op briMONidine tartrate (Alphagan) 0.2 % ophthalmic solution (CANCELED) ONCE PRN INTRA PROCEDURE, Starting on Tue03/07/24 at 1344, Until Tue03/07/24 at 1408, Intra-Op 1344 (Given - Provid er: Cameron Molina DO) DUOVISC inj KIT (CANCELED) ONCE PRN INTRA PROCEDURE, Starting on Tue03/07/24 at 1344, Until Tue03/07/24 at 1408, Intra-Op 1344 (Given - Provid er: Cameron Molina DO - Comment: qs) EPINEPHrine 0.5 mg in balanced salt solution 500 mL inj (CANCELED) ONCE PRN INTRA PROCEDURE, Starting on Tue03/07/24 at 1343, Until Tue03/07/24 at 1408, Intra-Op 1343 (Given - Provid er: Cameron Molina DO - Comment: qs) Erythromycin ophthalmic ointment (CANCELED) ONCE PRN INTRA PROCEDURE, Starting on Tue03/07/24 at 1344, Until Tue03/07/24 at 1408, Intra-Op 1344 (Given - Provid er: Cameron Molina DO) hydroxypropyl methylcellulose (Ocucoat) 2 % intraocular inj (CANCELED) ONCE PRN INTRA PROCEDURE, Starting on Tue03/07/24 at 1344, Until Tue03/07/24 at 1408, Intra-Op 1344 (Given - Provid er: Cameron Molina DO - Comment: qs) Lidocaine 1 % (PF) inj (CANCELED) ONCE PRN INTRA PROCEDURE, Starting on Tue03/07/24 at 1345, Until Tue03/07/24 at 1408, Intra-Op 1345 (Given - Provid er: Cameron Molina DO - Comment: qs) moxifloxacin (Vigamox) 0.5 % ophthalmic solution (CANCELED) ONCE PRN INTRA PROCEDURE, Starting on Tue03/07/24 at 1345, Until Tue03/07/24 at 1408, Intra-Op 1345 (Given - Provid er: Cameron Molina DO) prednisoLONE Acetate (Pred Forte) 1 % ophthalmic suspension (CANCELED) ONCE PRN INTRA PROCEDURE, Starting on Tue03/07/24 at 1345, Until Tue03/07/24 at 1408, Intra-Op 1345 (Given - Provid er: Cameron Molina DO) Tetracaine (Pontocaine) 0.5 % ophthalmic solution (CANCELED) ONCE PRN INTRA PROCEDURE, Starting on Tue03/07/24 at 1345, Until Tue03/07/24 at 1408, Intra-Op 1345 (Given - Provid er: Cameron Molina DO) Trypan blue (Vision Blue) 0.06% ophthalmic solution (CANCELED) ONCE PRN INTRA PROCEDURE, Starting on Tue03/07/24 at 1345, Until Tue03/07/24 at 1408, Intra-Op 1345 (Given - Provid er: Cameron Molina DO - Comment: qs) documented in this encounter Advance Directives * [...] Discussed due to patient's condition Care Teams Central Lab Technician Relationship Specialty Start Date End Date Maritza Lyles MD [address] [place] [address], [place] [address] PCP - General Internal Medicine 10/03/20 documented as of this encounter
--- OUTSIDE RECORDS SUMMARY | 2024-05-01 07:37 | External Medical Summary | Summary of Care ---
Author Name Unknown Organization [facility] [address] [facility] [address] Phone [phone] Care Team Providers Care Cleaning Custodian Name Role Phone Maritza Lyles MD Primary Care Provider + Reason for Visit * Reason Onset Date Comments Advice 03/06/2024 Encounter Details Date Type Department Care Team (Late st Contact Info) Description 03/06/2024 Telephone General Internal Medicine [facility] 200 [facility] [place] [address] Maritza Lyles MD 200 [place] [address] Advice Allergies No known active allergiesdocumented as of this encounter (statuses as of 03/16/2024) Medications Medication Sig Dispensed Refills Start Date [...] as of this encounter (statuses as of 03/16/2024) Active Problems Problem Noted Date Diagnosed Date [...] as of this encounter (statuses as of 03/16/2024) Immunizations Name Administration Dates Next Due Hepatitis B, 20+ yrs 11/16/2023,12/23/2022 Pneumococcal Conjugate Vacci ne, 20-valent ([id number]) 12/23/2022 Pneumococcal Polysaccharide PPV23 (Pneumovax) Seasonal Influenza, [...] encounter Miscellaneous Notes * Telephone Encounter - Maritza yLles MD - 03/16/2024 1:50 PM EDT Please inform the family and patient that with shortage of in 0 4 she will not need anymore but should continue ueut-sqq-hyycgyr iron pill 1 pill every other day. [...] Ralph RN - 03/12/2024 7:38 AM EDT [place] discontinued. IM: please make sure patient is [...] call patient to reschedule. Thank you. NS: FYCarson * Telephone Encounter - Dannielle Castellano LPN [...] Description 03/28/2024 4:15 PM EDT Imaging Radiology [address] 132 [facility] [place] [address] 03/30/2024 1:00 PM EDT Office Visit Hematology/Oncolog y [facility] [address] [facility] [phone] Raquel Edmond CRNP 400 [facility] [place] [address] 04/04/2024 1:00 PM EDT Hospital Encounter OR [facility], Operating Room [facility] [address] [place] [address] Cameron Molina, DO 21 [place] [address] 04/04/2024 1:00 PM EDT - 04/04/2024 1:46 PM EDT Surgery OR [facility], Operating Room [facility] 132 [place] [address] Cameron Molina, DO 46 [place] [address] RIGHT EXTRACAPSULAR CATARACT REMOVAL WITH INTRAOCULAR LENS 04/05/2024 9:00 AM EDT Office Visit Ophthalmology, [facility] [address] Cameron Molina, DO 21 [place] [address] 04/12/2024 9:30 AM EDT Office Visit Ophthalmology, [facility] 132 [facility] [place] [address] Cameron Molina, DO 21 [place] [address] 05/03/2024 3:45 PM EDT Office Visit Ophthalmology, [facility] 132 [facility] [place] [address] Cameron Molina, DO 21 [place] [address] Scheduled Procedures Name Priority Associated Diagnoses Date/Ti [...] this encounter Medical Devices Implanted Type Area Cocoa Bean Cleaner Device Identifier Shelf Expiration Date Model / Serial / Lot Lens [id number] 12.5mm+20.00 - [id number] - [id number] Implanted:Qty: 1 on 03/07/2024 by Cameron Molina DO at OR [facility] Left: Eye [employer] 10/19/2026 [id number] / [id number] / [id number] documented as of this encounter Advance Directives [...] Discussed due to patient's condition Care Teams Cleaning Custodian Relationship Specialty Start Date End Date Maritza Lyles MD 200 [facility] [place] [address] PCP - General Internal Medicine 10/03/20 documented as of this encounter
--- OUTSIDE RECORDS SUMMARY | 2024-05-01 07:37 | External Medical Summary | Summary of Care ---
Author Name Unknown Organization [facility] Address [address] [place] [facility] [place] [address] Phone [phone] Care Team Providers Care Staff Antisubmarine Officer Name Role Phone Maritza Lyles MD Primary Care Provider + Encounter Details Date Type Department Care Team (Late st Contact Info) Description 03/08/2024 Orders Only General Internal Medicine [facility] [place] 200 [facility] [place] [address] Maritza Lyles MD 200 [facility] [place] [address] Allergies No known active allergiesdocumented as of this encounter (statuses as of 03/08/2024) Medications Medication Sig Dispensed Refills Start Date End Date Status Aspirin 81 MG Oral Capsule TAKE 1 TABLET BY MOUTH EVERY DAY 05/23/2021 Active metFORMIN HCl 500 MG Oral Tablet (Glucophage)Indica tions:Type 2 diabetes mellitus with hemoglobin A1c goal of less than 7.0% ([facility]) Take 2 Tablets by mouth 2 times [...] yrs 11/16/2023,12/23/2022 Pneumococcal Conjugate Vacci ne, 20-valent ([id number]) 12/23/2022 Pneumococcal Polysaccharide PPV23 (Pneumovax) Seasonal Influenza, [...] Care Team (Late st Contact Info) Description 03/09/2024 1:00 PM EDT Hem/Onc Treatment Hematology/Oncolog y [facility], [place] [address] [facility] [phone] Jeanie, Chair 5 Hem Onc Sc[address] 200 [facility] [place] [address] 03/15/2024 7:30 AM EDT Office Visit Ophthalmology, [facility] [place] [address] Cameron Molina DO 21 [place] [address] 03/30/2024 1:00 PM EDT Office Visit Hematology[facility] 200 [facility] [place] [phone] Raquel Edmond CRNP [address] [place] [address] [place] [address] 04/04/2024 1:00 PM EDT Hospital Encounter OR [facility], Operating Room [facility] 132 [facility] [place] [phone] Cameron Molina, DO 21 [place] [address] 04/04/2024 1:00 PM EDT - 04/04/2024 1:46 PM EDT Surgery OR [facility], Operating Room [facility] 132 [facility] [place] [address] Cameron Molina, DO 21 [place] [address] RIGHT EXTRACAPSULAR CATARACT REMOVAL WITH INTRAOCULAR LENS 04/05/2024 9:00 AM EDT Office Visit Ophthalmology, [facility] 132 [facility] [place] [address] Cameron Molina, DO 21 [place] [address] 04/12/2024 9:30 AM EDT Office Visit Ophthalmology, [facility] 132 [facility] [place] [address] Cameron Molina, DO 21 [place] [address] 05/03/2024 3:45 PM EDT Office Visit Ophthalmology, [address] [place] [address] Cameron Molina, DO 21 [place] [address] Scheduled Procedures Name Priority Associated Diagnoses Date/Ti me EXTRACAPSULAR CATARACT REMOVAL WITH INTRAOCULAR LENS Cataract 04/04/2024 1:00 PM EDT COLONOSCOPY FLEXIBLE PROXIMAL DIAGNOSTIC Recall Screen for colon cancer Health Maintenance Due Date Last Done Comments Depression Screening 1976 Pap Smear 1985 Cervical Cancer Screening 1994 HPV/Co-Test 1994 Cologuard 2009 Fecal Occult Blood Test 2009 Sigmoidoscopy 2009 COVID-19 Vaccine (3 - 2023- season) 2023 12/23/2020, 12/02/2020 Albumin/Creatinine Ratio 10/04/2023 [...] this encounter Medical Devices Implanted Type Area Web Production Designer Device Identifier Shelf Expiration Date Model / Serial / Lot Lens [id number] 12.5mm+20.00 - [id number] - [id number] Implanted:Qty: 1 on 03/07/2024 by Cameron Molina DO at OR [facility] Left: Eye [employer] 10/19/2026 [id number] / [id number] / [id number] documented as of this encounter Advance Directives [...] Discussed due to patient's condition Care Teams Staff Antisubmarine Officer Relationship Specialty Start Date End Date Maritza Lyles MD 200 [facility] [place] [address] PCP - General Internal Medicine 10/03/20 documented as of this encounter
--- OUTSIDE RECORDS SUMMARY | 2024-05-01 07:37 | External Medical Summary | Summary of Care ---
Author Name Unknown Organization [facility] Address [address] [facility] [address] Phone [phone] Care Team Providers Care Paint Stockman Name Role Phone Maritza Lyles MD Primary Care Provider + Reason for Visit * Reason Comments IV Therapy Venofer Encounter Details Date Type Department Care Team (Latest Contact Info) Description 02/23/2024 1:30 PM EDT Hem/Onc Treatment Hematology/Oncology Treatment, [address] [place] [address] Jeanie, Chair 2 Hem Onc [facility] 200 [place] [address] Iron deficiency anemia due to [...] yrs 11/16/2023,12/23/2022 Pneumococcal Conjugate Vacci ne, 20-valent ([id number]) 12/23/2022 Pneumococcal Polysaccharide PPV23 (Pneumovax) Seasonal Influenza, [...] Description 03/28/2024 4:15 PM EDT Imaging Radiology [facility] [facility] 132 [facility] [place] [address] 03/30/2024 1:00 PM EDT Office Visit Hematology/Oncolog y [facility] [address] [place] [address] Raquel Edmond CRNP [address] [place] [address] 04/04/2024 1:00 PM EDT Hospital Encounter OR [facility], Operating Room [facility] [address] [place] [address] Cameron Molina, DO 21 [place] [address] 04/04/2024 1:00 PM EDT - 04/04/2024 1:46 PM EDT Surgery OR [facility], Operating Room [facility] [address] [place] [address] Cameron Molina, DO 21 [place] [address] RIGHT EXTRACAPSULAR CATARACT REMOVAL WITH INTRAOCULAR LENS 04/05/2024 9:00 AM EDT Office Visit Ophthalmology, [facility] 132 [facility] [place] [address] Cameron Molina, 21 [place] [address] 04/12/2024 9:30 AM EDT Office Visit Ophthalmology, [facility] 132 [facility] [place] [address] Cameron Molina, 21 [place] [address] 05/03/2024 3:45 PM EDT Office Visit Ophthalmology, [facility] 132 [facility] [place] [address] Cameron Molina, 21 [place] [address] Scheduled Procedures Name Priority Associated Diagnoses Date/Ti [...] Other and combined forms of senile cataract Screening mammogram for breast cancer Cataract Unspecified [...] Discussed due to patient's condition Care Teams Paint Stockman Relationship Specialty Start Date End Date Maritza Lyles MD [address] [place] [address] [place] [address] PCP - General Internal Medicine 10/03/20 documented as of this encounter
--- OUTSIDE RECORDS SUMMARY | 2024-05-01 07:37 | External Medical Summary ---
Author Name Unknown Address Unknown Organization K09:[facility] [place] [address] Laboratory Report Ordering Provider Test Date Status HORTENCIA AWAN 03/05/2024 13:45:23 Final Observation Date Value Abnormality Reference (Units ) Status WBC, Total 03/05/2024 13:45:23 9.97 4.00-10.8 0 (K/uL) Final RBC 03/05/2024 13:45:23 4.90 3.85-5.15 (M/uL) Final Hemoglobin 03/05/2024 13:45:23 11.1 Below low normal 12 .0-15.3 (g/dL) Final HCT 03/05/2024 13:45:23 37.4 36.0-45.2 (%) Final MCV 03/05/2024 13:45:23 76.3 81.5-97.5 (fL) Final MCH 03/05/2024 13:45:23 22.7 27.0-34.0 (pg) Final MCHC 03/05/2024 13:45:23 29.7 32.0-36.0 (g/dL) Final RDW 03/05/2024 13:45:23 21.0 11.5-15.5 (%) Final Platelets 03/05/2024 13:45:23 409 Above high normal 14 0-400 (K/uL) Final MPV 03/05/2024 13:45:23 9.8 6.6-11.1 ( fL) Final Performing Location [facility] [place] [address]
--- OUTSIDE RECORDS SUMMARY | 2024-05-01 07:37 | External Medical Summary | Summary of Care ---
Author Name Unknown Organization [facility] Address [address] [facility] [address] Phone [phone] Care Team Providers Care Car Starter Name Role Phone Maritza Lyles MD Primary Care Provider + Reason for Visit * Reason Comments Post-Op Encounter Details Date Type Department Care Team (Late st Contact Info) Description 03/15/2024 7:30 AM EDT Office Visit Ophthalmology, [facility] 132 [facility] [place] [address] Cameron Molina, DO 21 [facility] [place] [phone] After cataract not obscuring vision, left* Allergies No known active allergiesdocumented as of this encounter (statuses as of 03/18/2024) Medications Medication Sig Dispensed Refills Start Date End Date Status Aspirin 81 MG Oral Capsule TAKE 1 TABLET BY MOUTH EVERY DAY 05/23/2021 Active metFORMIN HCl 500 MG Oral Tablet (Glucophage)Indica tions:Type 2 diabetes mellitus with hemoglobin A1c goal of less than 7.0% ([facility]) Take 2 Tablets by [...] as of this encounter (statuses as of 03/18/2024) Active Problems Problem Noted Date Diagnosed Date [...] as of this encounter (statuses as of 03/18/2024) Immunizations Name Administration Dates Next Due Hepatitis B, 20+ yrs 11/16/2023,12/23/2022 Pneumococcal Conjugate Vacci ne, 20-valent ([id number]) 12/23/2022 Pneumococcal Polysaccharide PPV23 (Pneumovax) Seasonal Influenza, [...] of this encounter Progress Notes * Cameron Molina DO - 03/15/2024 7:30 AM EDT 03/15/2024 [facility] Ophthalmology Post-operative Clinic Note HPI: Taj Laura is a 58 year old pt who presents to the eye clinic today for 1 week post-op CE PCIOL OS (Ensor TCC MX60E 20.0 03/07/2024). Doing well. Vacuum Drum Drier Operator: Amos [id number] VA: 20/25 IOP: 16 mmHg LL: Normal Conjunctiva: Normal Cornea: CCI and paracentesis raudel negative, 10-0 nylon, MCE CCI AC: 2+ c/f Iris: residual dilation Lens: PCIOL centered Vitreous: PVD Optic nerve: Normal Macula: RPE changes Vessels: Normal Periphery: No break/tear A/P: 1 week post op CE PCIOL OS (Ensor TCC MX60E 20.0 03/07/2024) Stable DFE Pred BID OS May stop vigamox D/c eye shield Gradual return to normal activity levels Call with flashes, floaters, dec vision eye pain. Advised of sulfonation equipment operator coverage for after hours/weekend emergencies. Will remove suture OS at time of surgery (OD) in March RTC DOS or sooner prn. Cameron Molina DO 03/15/24 documented in this encounter Nursing Notes * Nolvia Johnson LPN - 03/15/2024 7:37 AM EDT Taj Laura presents for p/o check. Patient's name preference, 'Taj'. Are you a diabetic? yes 1 week post-op cataract Surgical eye LEFT EYE Patient denies complaints Are you taking the drops as directed? Yes Did you wear eye shield to bed, slept on unaffected side and avoid bending over and heavy lifting? No Do you drive? No Patient advised not to drive while eye's are dilated or vision is blurred. Pt/Family verbalizes understanding. documented in this encounter Plan of Treatment Upcoming Encounters Date Type Department Care Team (Late st Contact Info) Description 03/28/2024 4:15 PM EDT Imaging Radiology [address] 132 [facility] [place] [address] 03/30/2024 1:00 PM EDT Office Visit Hematology/Oncolog y [facility] [address] [place] [address] Raquel Edmond CRNP 400 [facility] [place] [address] 04/04/2024 1:00 PM EDT Hospital Encounter OR [facility], Operating Room [facility] 132 [facility] [place] [phone] Cameron Molina DO [address] [place] [address] 04/04/2024 1:00 PM EDT - 04/04/2024 1:46 PM EDT Surgery OR [facility], Operating Room [facility] 132 [facility] [place] [address] Cameron Molina, DO 21 [place] [address] RIGHT EXTRACAPSULAR CATARACT REMOVAL WITH INTRAOCULAR LENS 04/05/2024 9:00 AM EDT Office Visit Ophthalmology, [facility] 132 [facility] [place] [address] Cameron Molina, 21 [place] [address] 04/12/2024 9:30 AM EDT [facility] 132 [facility] [place] [address] Cameron Molina, 21 [place] [address] 05/03/2024 3:45 PM EDT [facility] 132 [facility] [place] [address] Cameron Molina, 21 [place] [address] Scheduled Procedures Name Priority Associated Diagnoses Date/Ti [...] this encounter Medical Devices Implanted Type Area Pump Servicer Device Identifier Shelf Expiration Date Model / Serial / Lot Lens [id number] 12.5mm+20.00 - [id number] - [id number] Implanted:Qty: 1 on 03/07/2024 by Cameron Molina DO at OR [facility] Left: Eye [employer] 10/19/2026 [id number] / [id number] / [id number] documented as of this encounter Visit Diagnoses Diagnosis After cataract not obscuring vision, left- Primary Screening mammogram for breast cancer Cataract Unspecified cataract documented in this encounter Advance Directives * [...] Discussed due to patient's condition Care Teams Car Starter Relationship Specialty Start Date End Date Maritza Lyles MD 200 [place] [address] PCP - General Internal Medicine 10/03/20 documented as of this encounter
--- OUTSIDE RECORDS SUMMARY | 2024-05-01 07:37 | External Medical Summary | Summary of Care ---
Author Name Unknown Organization [facility] Address [address] [facility] [address] Phone [phone] Care Team Providers Care Restaurant Maintenance Technician Name Role Phone Maritza Lyles MD Primary Care Provider + Reason for Visit * Reason Comments Outpatient Testing Encounter Details Date Type Department Care Team (Late st Contact Info) Description 03/05/2024 1:50 PM EDT Laboratory Laboratory [facility] [place]ie [place] [address] [place] [address] [place], Lab Scenery [address] [place] [address] Iron deficiency anemia, unspecified iron deficiency anemia type Allergies No known active allergiesdocumented as of this encounter (statuses as of 03/05/2024) Medications Medication Sig Dispensed Refills Start Date [...] as of this encounter (statuses as of 03/05/2024) Active Problems Problem Noted Date Diagnosed Date [...] as of this encounter (statuses as of 03/05/2024) Immunizations Name Administration Dates Next Due Hepatitis B, 20+ yrs 11/16/2023,12/23/2022 Pneumococcal Conjugate Vacci ne, 20-valent ([id number]) 12/23/2022 Pneumococcal Polysaccharide PPV23 (Pneumovax) Seasonal Influenza, [...] Team (Late st Contact Info) Description 03/07/2024 1:06 PM EDT Hospital Encounter [facility], Operating Room [facility] 132 [place] [phone] Cameron Molina, DO [address] [place] [place] [address] 03/07/2024 1:06 PM EDT - 03/07/2024 1:52 PM EDT Surgery OR [facility], Operating Room [facility] 132 [place] [address] Cameron Molina, 21 [place] [address] LEFT EXTRACAPSULAR CATARACT REMOVAL WITH INTRAOCULAR LENS 03/08/2024 8:45 AM EDT Office Visit Ophthalmology, [facility] 132 [place] [address] Cameron Molina, 21 [place] [address] 03/08/2024 1:15 PM EDT Imaging [facility] [address] [place] [address] 03/09/2024 1:00 PM EDT Hem/Onc Treatment Hematology/Oncolog y Treatment, [address] [phone] Jeanie, Chair 5 Hem Onc [address] [address] 03/15/2024 1:00 PM EDT Hem/Onc Treatment Hematology/Oncolog y Treatment, [address] [phone] Jeanie, Chair 10 Hem Onc Scenery [address] [place] [address] 03/30/2024 1:00 PM EDT Office Visit Hematology/Oncolog y Scenery Jeanie [place] [address] [place] [phone] Raquel Edmond CRNP 400 [facility] [place] [address] 04/04/2024 1:00 PM EDT Hospital Encounter [facility], Operating Room [facility] 132 [facility] [place]EL [place] [phone] Cameron Molina, DO [address] [place] [place] [address] 04/04/2024 1:00 PM EDT - 04/04/2024 1:46 PM EDT Surgery OR [facility], Operating Room [facility] 132 [facility] [place] [phone] Cameron Molina, DO [address] [place] [place] [address] RIGHT EXTRACAPSULAR CATARACT REMOVAL WITH INTRAOCULAR LENS 04/05/2024 9:00 AM EDT Office Visit Ophthalmology, [facility] 132 [facility] [place] [address] Cameron Molina, DO [address] [place] [place] [address] 04/12/2024 9:30 AM EDT Office Visit Ophthalmology, [facility] 132 [facility] [place] [address] Cameron Molina, DO 21 [place] [place] [address] 05/03/2024 3:45 PM EDT Office Visit Ophthalmology, [facility] [address] [place] [address] Cameron Molina, DO [address] [place] [address] Pending Results Name Type Priority Associated Diagnoses Date /Time CBC WITH WBC DIFFERENTIAL Lab Routine Iron deficiency anemia, unspecified iron deficiency anemia type 03/05/2024 1:45 PM EDT FERRITIN Lab Routine Iron deficiency anemia, unspecified iron deficiency anemia type 03/05/2024 1:45 PM EDT CBC Lab Routine Iron deficiency anemia, unspecified iron deficiency anemia type 03/05/2024 1:45 PM EDT DIFFERENTIAL, AUTOMATED Lab Routine Iron deficiency anemia, unspecified iron deficiency anemia type 03/05/2024 1:45 PM EDT Scheduled Procedures Name Priority Associated Diagnoses Date/Ti me EXTRACAPSULAR CATARACT REMOVAL WITH INTRAOCULAR LENS Cataract 03/07/2024 1:06 PM EDT EXTRACAPSULAR CATARACT REMOVAL WITH INTRAOCULAR LENS Cataract [...] combined forms of senile cataract Iron deficiency anemia, unspecified iron deficiency anemia type Cataract Unspecified cataract Screening mammogram for breast cancer Cataract Unspecified cataract documented in this encounter Advance Directives * Full Code (Latest Code Status on File) Date Activated Date Inactivated Comments 02/22/2024 12:02 PM 02/22/2024 5:27 PM Question Answer Comments Discussion of Advance Direct jose david occurred with: Not Discussed due to patient's condition Care Teams Restaurant Maintenance Technician Relationship Specialty Start Date End Date Maritza Lyles MD [address] [place] [address] PCP - General Internal Medicine 10/03/20 documented as of this encounter
--- OUTSIDE RECORDS SUMMARY | 2024-05-01 07:37 | External Medical Summary ---
Author Name Unknown Address Unknown Organization : Laboratory Report Ordering Provider Test Date Status JOSEPH SARMIENTO 03/07/2024 12:17:21 Final Observation Date Value Abnormality Reference (Units ) Status Glucose Point of Care 03/07/2024 12:17:21 109 70-120 (mg/dL) Final Performing Location
--- OUTSIDE RECORDS SUMMARY | 2024-05-01 07:37 | External Medical Summary | Summary of Care ---
Author Name Unknown Organization [facility] Address [address] [facility] [address] Phone [phone] Care Team Providers Care Sign Erector Name Role Phone Maritza Lyles MD Primary Care Provider + Reason for Visit * Reason Onset Date Comments Advice 03/06/2024 Encounter Details Date Type Department Care Team (Late st Contact Info) Description 03/06/2024 Telephone General Internal Medicine [facility] [place] 200 [facility] [place] [address] Maritza Lyles MD 200 [place] [address] Advice Allergies No known active allergiesdocumented as of this encounter (statuses as of 03/15/2024) Medications Medication Sig Dispensed Refills Start Date [...] as of this encounter (statuses as of 03/15/2024) Active Problems Problem Noted Date Diagnosed Date [...] as of this encounter (statuses as of 03/15/2024) Immunizations Name Administration Dates Next Due Hepatitis B, 20+ yrs 11/16/2023,12/23/2022 Pneumococcal Conjugate Vacci ne, 20-valent ([id number]) 12/23/2022 Pneumococcal Polysaccharide PPV23 (Pneumovax) Seasonal Influenza, [...] Ralph RN - 03/12/2024 7:38 AM EDT [place] discontinued. IM: please make sure patient is [...] Description 03/28/2024 4:15 PM EDT Imaging Radiology [facility] 1st [facility] 132 [facility] [place] [address] 03/30/2024 1:00 PM EDT Office Visit Hematology/Oncolog y [facility] [address] [place] [phone] Raquel Edmond CRNP [address] [place] [address] 04/04/2024 1:00 PM EDT Hospital Encounter OR [facility], Operating Room [facility] 132 [facility] [place] [address] Cameron Molina, DO [address] [place] [place] [address] 04/04/2024 1:00 PM EDT - 04/04/2024 1:46 PM EDT Surgery OR [facility], Operating Room [facility] [address] [place] [address] Cameron Molina, DO [address] [place] [place] [address] RIGHT EXTRACAPSULAR CATARACT REMOVAL WITH INTRAOCULAR LENS 04/05/2024 9:00 AM EDT Office Visit Ophthalmology, [facility] 132 [facility] [place] [address] Cameron Molina, DO [address] [place] [place] [address] 04/12/2024 9:30 AM EDT Office Visit Ophthalmology, [facility] 132 [facility] [place] [address] Cameron Molina, DO [address] [place] [address] 05/03/2024 3:45 PM EDT Office Visit Ophthalmology, [facility] 132 [facility] [place] [address] Cameron Molina, DO [address] [place] [place] [address] Scheduled Procedures Name Priority Associated Diagnoses Date/Ti [...] this encounter Medical Devices Implanted Type Area Occupational Health Nurse Device Identifier Shelf Expiration Date Model / Serial / Lot Lens [id number] 12.5mm+20.00 - [id number] - [id number] Implanted:Qty: 1 on 03/07/2024 by Cameron Molina DO at OR [facility] Left: Eye [employer] 10/19/2026 [id number] / [id number] / [id number] documented as of this encounter Advance Directives [...] Discussed due to patient's condition Care Teams Sign Erector Relationship Specialty Start Date End Date Maritza Lyles MD 200 [facility] [place] [address] PCP - General Internal Medicine 10/03/20 documented as of this encounter
--- OUTSIDE RECORDS SUMMARY | 2024-05-01 07:37 | External Medical Summary | Summary of Care ---
Author Name Unknown Organization [facility] Address [address] [facility] [address] Phone [phone] Care Team Providers Care Site Manager Name Role Phone Maritza Lyles MD Primary Care Provider + Reason for Visit * Reason Comments Post Op Cataract Surgery 1 day po left e ye Encounter Details Date Type Department Care Team (Late st Contact Info) Description 03/08/2024 8:45 AM EDT Office Visit Ophthalmology, [facility] 132 [facility] [place] [address] Cameron Molina, DO 21 [facility] [place] [address] After cataract not obscuring vision, left* Allergies [...] yrs 11/16/2023,12/23/2022 Pneumococcal Conjugate Vacci ne, 20-valent ([id number]) 12/23/2022 Pneumococcal Polysaccharide PPV23 (Pneumovax) Seasonal Influenza, [...] Progress Notes * Cameron Molina DO - 03/08/2024 8:45 AM EDT 03/08/2024 [facility] Ophthalmology Post-operative Clinic Note HPI: Taj Laura is a 58 year old pt who presents to the eye clinic today for 1 day post-op CE PCIOLOS (Ensor TCC MX60E 20.0 03/07/2024) Customer Retention Specialist: [id number] VAsc: 20/40 IOP: 19 LL: Normal Conjunctiva: Normal Cornea: CCI and paracentesis raudel negative, 10-0 nylon, MCE CCI, trace edema AC: 2+ c/f Iris: residual dilation Lens: PCIOL centered A/P: 1 day post op CE PCIOL OS (Ensor TCC MX60E 20.0 03/07/2024) Doing well today Raudel negative wounds Normal IOP Expected post operative inflammation is seen Reviewed eye drops: Vigamox QID Prednisolone QID Reviewed activity restrictions - no bending or lifting, no strenuous activity. Wear eye shield at bedtime. Call with flashes, floaters, dec vision eye pain. Advised of irrigation service technician coverage for after hours/weekend emergencies. RTC 1 week or sooner prn. Cameron Molina DO 03/08/24 documented in this encounter Nursing Notes * Luanne Reece TECH - 03/08/2024 9:01 AM EDT Taj Laura presents for p/o check. Post operative day 1 procedure: ECCE w/IOL insertion Operative eye: LEFT EYE Patient denies complaints Dressing removed, negative amount of drainage. Eye cleansed with normal saline solution. Instructions regarding wearing of eye shield reinforced. No drops used, eye was patched. Pred Forte and Ofloxacin 1gtt 4 times daily in surgical eye Did you wear eye shield to bed, slept on unaffected side and avoid bending over and heavy lifting? Yes Va will be found in the ophth exam Customer Retention Specialist #[id number], [place] documented in this encounter Plan of Treatment Upcoming Encounters Date Type Department Care Team (Late st Contact Info) Description 03/08/2024 1:15 PM EDT Imaging Radiology [address], [place] 132 [facility] [place] [address] 03/09/2024 1:00 PM EDT Hem/Onc Treatment Hematology/Oncolog y Treatment, [address] [phone] Jeanie, Chair 5 Hem Onc Scenery [address] [place] [address] [place] [address] 03/15/2024 1:00 PM EDT Hem/Onc Treatment Hematology/Oncolog y Treatment, [place] 200 [facility] [phone] Jeanie, Chair [address] [facility] 200 [place] [address] 03/30/2024 1:00 PM EDT Office Visit Hematology/Oncolog y [facility] Jeanie [place] 200 [place] [phone] Raquel Edmond CRNP [address] [place], [place] [address]SH[place] [address] 04/04/2024 1:00 PM EDT Hospital Encounter OR [facility], Operating Room [facility] 132 [facility] [place] [phone] Cameron Molina, DO 21 [place] [address] 04/04/2024 1:00 PM EDT - 04/04/2024 1:46 PM EDT Surgery OR [facility], Operating Room [facility] 132 [facility] [place] [phone] Cameron Molina, DO [address] [place] [address] RIGHT EXTRACAPSULAR CATARACT REMOVAL WITH INTRAOCULAR LENS 04/05/2024 9:00 AM EDT Office Visit Ophthalmology, [facility] 132 [facility] [place] [address] Cameron Molina, DO 21 [place] [address] 04/12/2024 9:30 AM EDT Office Visit Ophthalmology, [facility] 132 [facility] [place] [address] Cameron Molina, DO 21 [place] [place] [address] 05/03/2024 3:45 PM EDT Office Visit Ophthalmology, [facility] 132 [facility] [place] [address] Cameron Molina, DO 21 [place] [address] Scheduled Procedures Name Priority Associated Diagnoses Date/Ti [...] this encounter Medical Devices Implanted Type Area Fire Equipment Inspector Helper Device Identifier Shelf Expiration Date Model / Serial / Lot Lens [id number] 12.5mm+20.00 - [id number] - [id number] Implanted:Qty: 1 on 03/07/2024 by Cameron Molina DO at OR [facility] Left: Eye [employer] 10/19/2026 [id number] / [id number] / [id number] documented as of this encounter Visit Diagnoses [...] Discussed due to patient's condition Care Teams Site Manager Relationship Specialty Start Date End Date Maritza Lyles MD [address] [place] [address] PCP - General Internal Medicine 10/03/20 documented as of this encounter
--- OUTSIDE RECORDS SUMMARY | 2024-05-01 07:37 | External Medical Summary | Summary of Care ---
Author Name Unknown Organization [facility] Address [address] [facility] [address] Phone [phone] Care Team Providers Care Library Sales Consultant Name Role Phone Maritza Lyles MD Primary Care Provider + Reason for Visit * Reason Onset Date Comments Advice 03/06/2024 Encounter Details Date Type Department Care Team (Late st Contact Info) Description 03/06/2024 Telephone General Internal Medicine [facility] [place] [address] [facility] [place] [address] Maritza Lyles MD 200 [place] [address] Advice Allergies No known active allergiesdocumented as [...] yrs 11/16/2023,12/23/2022 Pneumococcal Conjugate Vacci ne, 20-valent ([id number]) 12/23/2022 Pneumococcal Polysaccharide PPV23 (Pneumovax) Seasonal Influenza, [...] Ralph RN - 03/12/2024 7:38 AM EDT [place] discontinued. IM: please make sure patient is [...] Description 03/28/2024 4:15 PM EDT Imaging Radiology [facility] 1st [facility] 132 [facility] [place] [address] 03/30/2024 1:00 PM EDT Office Visit Hematology/Oncolog y [facility] [address] [place] [phone] Raquel Edmond CRNP 400 [place] [address] 04/04/2024 1:00 PM EDT Hospital Encounter OR [facility], Operating Room [facility] 132 [facility] [place] [address] Cameron Molina, DO 21 [place] [place] [address] 04/04/2024 1:00 PM EDT - 04/04/2024 1:46 PM EDT Surgery OR [facility], Operating Room OSS [address] [place] [address] Cameron Molina, DO 21 [place] [place] [address] RIGHT EXTRACAPSULAR CATARACT REMOVAL WITH INTRAOCULAR LENS 04/05/2024 9:00 AM EDT Office Visit Ophthalmology, [facility] 132 [facility] [place] [address] Cameron Molina, DO 21 [place] [place] [address] 04/12/2024 9:30 AM EDT Office Visit Ophthalmology, [facility] 132 [facility] [place] [address] Cameron Molina, DO 21 [place] [place] [address] 05/03/2024 3:45 PM EDT Office Visit Ophthalmology, [facility] 132 [facility] [place] [address] Cameron Molina, DO 21 [place] [place] [address] Scheduled Procedures Name Priority Associated Diagnoses Date/Ti [...] this encounter Medical Devices Implanted Type Area Boarding Kennel Or Cattery Operator Device Identifier Shelf Expiration Date Model / Serial / Lot Lens [id number] 12.5mm+20.00 - [id number] - [id number] Implanted:Qty: 1 on 03/07/2024 by Cameron Molina DO at OR [facility] Left: Eye [employer] 10/19/2026 [id number] / [id number] / [id number] documented as of this encounter Advance Directives [...] Discussed due to patient's condition Care Teams Library Sales Consultant Relationship Specialty Start Date End Date Maritza Lyles MD [address] [facility] [place] [address] PCP - General Internal Medicine 10/03/20 documented as of this encounter
--- OUTSIDE RECORDS SUMMARY | 2024-05-01 07:37 | External Medical Summary | Summary of Care ---
Author Name Unknown Organization [facility] Address [address] [facility] [address] Phone [phone] Care Team Providers Care Account Services Associate Name Role Phone Maritza Lyles MD Primary Care Provider + Reason for Visit * Reason Comments Outpatient Testing Encounter Details Date Type Department Care Team (Late st Contact Info) Description 03/05/2024 1:50 PM EDT Laboratory Laboratory [facility] Jeanie [place] [address] [place] [address] [place], Lab Scenery [address] [place] [address] Iron deficiency anemia, unspecified iron deficiency anemia [...] yrs 11/16/2023,12/23/2022 Pneumococcal Conjugate Vacci ne, 20-valent ([id number]) 12/23/2022 Pneumococcal Polysaccharide PPV23 (Pneumovax) Seasonal Influenza, [...] [facility], Operating Room [facility] 132 [place] [address] Cameron Molina, DO [address] [place] [address] 03/07/2024 1:06 PM EDT - 03/07/2024 1:52 PM EDT Surgery OR [facility], Operating Room [facility] 132 [place] [address] Cameron Molina, 21 [place] [address] LEFT EXTRACAPSULAR CATARACT REMOVAL WITH INTRAOCULAR LENS 03/08/2024 8:45 AM EDT Office Visit Ophthalmology, [facility] 132 [place] [address] Cameron Molina, 21 [place] [address] 03/08/2024 1:15 PM EDT Imaging [facility] [address] [place] [address] 03/09/2024 1:00 PM EDT Hem/Onc Treatment Hematology/Oncolog y [address], [address] [phone] Jeanie, Chair 5 Hem Onc [address] [address] 03/15/2024 1:00 PM EDT Hem/Onc Treatment Hematology/Oncolog y Treatment, [address] [phone] Jeanie, Chair 10 Hem Onc [address] [place] [address] 03/30/2024 1:00 PM EDT Office Visit Hematology/Oncolog y Scenery Jeanie [place] [address] [place] [phone] Raquel Edmond CRNP 400 [facility] [place]EL [place] [address] 04/04/2024 1:00 PM EDT Hospital Encounter OR [facility], Operating Room [facility] 132 [facility] SH[place]EL [place] [phone] Cameron Molina, DO 21 [place] [address] 04/04/2024 1:00 PM EDT - 04/04/2024 1:46 PM EDT Surgery OR [facility], Operating Room [facility] 132 [facility] [place] [phone] Cameron Molina, DO 21 [place] [place] [address] RIGHT EXTRACAPSULAR CATARACT REMOVAL WITH INTRAOCULAR LENS 04/05/2024 9:00 AM EDT Office Visit Ophthalmology, [facility] 132 [facility] [place] [address] Cameron Molina, DO 21 [place] [place] [address] 04/12/2024 9:30 AM EDT Office Visit Ophthalmology, [facility] 132 [facility] [place] [address] Cameron Molina, DO [address] [place] [place] [address] 05/03/2024 3:45 PM EDT Office Visit Ophthalmology, [facility] [address] [place] [address] Cameron Molina, DO [address] [place] [address] Pending Results Name Type Priority Associated Diagnoses Date /Time FERRITIN Lab Routine Iron deficiency anemia, unspecified [...] Not on filedocumented as of this encounter Procedures Procedure Name Priority Date/Time Associated Diagnosis Comments DIFFERENTIAL, AUTOMATED Routine 03/05/2024 1:45 PM EDT Iron deficiency anemia, unspecified iron deficiency anemia type CBC Routine 03/05/2024 1:45 PM EDT Iron deficiency anemia, unspecified iron deficiency anemia type CBC Routine 03/05/2024 1:45 PM EDT Iron deficiency anemia, unspecified iron deficiency anemia type DIFFERENTIAL, TECHNOLOGIST REVIEW Routine 03/05/2024 1:45 PM EDT Iron deficiency anemia, unspecified iron deficiency anemia type documented in this encounter Results * (ABNORMAL) DIFFERENTIAL, TECHNOLOGIST REVIEW (03/05/2024 1:45 PM EDT) WBC 9.97 4.00 - 10.80 K/uL 03/05/2024 2:26 PM EDT [facility] 56-02 Neutrophils % 51.0 40.0 - 75.0 % 03/05/2024 2:26 PM EDT [facility] 56-02 Lymphocytes % 37.0 18.0 - 42.0 % 03/05/2024 2:26 PM EDT LAB[facility]ATORY [facility] 56-02 Monocytes % 8.0 1.0 - 11.0 % 03/05/2024 2:26 PM EDT [facility] 56- Basophils % 2.0 0.0 - 2.0 % 03/05/2024 2:26 PM EDT [facility] 56-02 Metamyelocytes % 2.0(H) <=0.0 % 03/05/20 2:26 PM EDT [facility] 56- Absolute Neutrophils 5.08 1.80 - 7.70 K/uL 03/05/2024 2:26 PM EDT [facility] 56- Absolute Lymphocytes 3.69 1.00 - 4.80 K/uL 03/05/2024 2:26 PM EDT [facility] 56- Absolute Monocytes 0.80 0.00 - 1.10 K/uL 03/05/2024 2:26 PM EDT [facility] 56- Absolute Basophils 0.20 0.00 - 0.20 K/uL 03/05/2024 2:26 PM EDT [facility] 56- Absolute Metamyelocytes 0.20(H) <=0.00 K/uL 03/05/2024 2:26 PM EDT [facility] 56-02 nRBCs 03/05/2024 2:26 PM EDT [facility] 56-02 Acanthocytes Moderate( A) None Seen 03/05/2024 2:26 PM EDT [facility] 56-02 Blood Venous blood specimen / Unknown Venipuncture / Unknown 03/05/2024 1:45 PM EDT 03/05/2024 1:45 PM EDT Maritza Lyles MD LAB BLOOD ORDERA BLES [facility] 56-[address] [place] [address] * DIFFERENTIAL, AUTOMATED (03/05/2024 1:45 PM EDT) Blood Venous blood specimen / Unknown Venipuncture / Unknown 03/05/2024 1:45 PM EDT 03/05/2024 1:45 PM EDT Maritza Lyles MD LAB BLOOD ORDERA BLES [facility] 56 200 [place] [address] * (ABNORMAL) CBC (03/05/2024 1:45 PM EDT) WBC 9.97 4.00 - 10.80 K/uL 03/05/2024 2:26 PM EDT [facility] 56 RBC 4.90 3.85 - 5.15 M/uL 03/05/2024 2:26 PM EDT [facility] 56 HGB 11.1(L) 12.0 - 15.3 g/dL 03/05/2024 2:26 PM EDT [facility] 56 HCT 37.4 36.0 - 45.2 % 03/05/2024 2:26 PM EDT [facility] 56 MCV 76.3 81.5 - 97.5 fL 03/05/2024 2:26 PM EDT [facility] 56 MCH 22.7 27.0 - 34.0 pg 03/05/2024 2:26 PM EDT [facility] MCHC 29.7 32.0 - 36.0 g/dL 03/05/2024 2:26 PM EDT [facility] 56 RDW 21.0 11.5 - 15.5 % 03/05/2024 2:26 PM EDT [facility] 56 PLT 409(H) 140 - 400 K/uL 03/05/2024 2:26 PM EDT [facility] 56 MPV 9.8 6.6 - 11.1 fL 03/05/2024 2:26 PM EDT [facility] 56 Blood Venous blood specimen / Unknown Venipuncture / Unknown 03/05/2024 1:45 PM EDT 03/05/2024 1:45 PM EDT Maritza Lyles MD LAB BLOOD ORDERA BLES [facility] 200 [place] [address] documented in this encounter Visit Diagnoses Diagnosis [...] Discussed due to patient's condition Care Teams Account Services Associate Relationship Specialty Start Date End Date Maritza Lyles MD 200 [facility] [place] [address] PCP - General Internal Medicine 10/03/20 documented as of this encounter
--- OUTSIDE RECORDS SUMMARY | 2024-05-01 07:37 | External Medical Summary | Summary of Care ---
Author Name Unknown Organization [facility] Address [address] [facility] [address] Phone [phone] Care Team Providers Care Conservation Educator Name Role Phone Maritza Lyles MD Primary Care Provider + Reason for Visit * Reason Onset Date Comments Advice 03/06/2024 Encounter Details Date Type Department Care Team (Late st Contact Info) Description 03/06/2024 Telephone General Internal Medicine [facility] [place] [address] [facility] [place] [address] Maritza Lyles MD 200 [place] [address] Advice Allergies No known active allergiesdocumented as [...] yrs 11/16/2023,12/23/2022 Pneumococcal Conjugate Vacci ne, 20-valent ([id number]) 12/23/2022 Pneumococcal Polysaccharide PPV23 (Pneumovax) Seasonal Influenza, [...] RN - 03/12/2024 7:38 AM EDT [place] discontinued. IM: please make sure patient is [...] Description 03/28/2024 4:15 PM EDT Imaging Radiology [facility] 1st [facility] [address] [facility] [place] [address] 03/30/2024 1:00 PM EDT Office Visit Hematology/Oncolog y [facility] [address] [place] [phone] Raquel Edmond CRNP [address] [place] [address] 04/04/2024 1:00 PM EDT Hospital Encounter OR [facility], Operating Room OSS [address] [facility] [place] [address] Cameron Molina, DO 21 [place] [address] 04/04/2024 1:00 PM EDT - 04/04/2024 1:46 PM EDT Surgery OR [facility], Operating Room OSS [address] [place] [phone] Cameron Molina, DO 21 [place] [address] RIGHT EXTRACAPSULAR CATARACT REMOVAL WITH INTRAOCULAR LENS 04/05/2024 9:00 AM EDT Office Visit Ophthalmology, [facility] 132 [facility] [place] [address] Cameron Molina, DO 21 [place] [address] 04/12/2024 9:30 AM EDT Office Visit Ophthalmology, [facility] [address] [facility] [place] [address] Cameron Molina, DO 21 [place] [address] 05/03/2024 3:45 PM EDT Office Visit Ophthalmology, [facility] [address] [facility] [place] [address] Cameron Molina, DO 21 [place] [address] Scheduled Procedures Name Priority Associated Diagnoses Date/Ti [...] this encounter Medical Devices Implanted Type Area Client Experience Specialist Device Identifier Shelf Expiration Date Model / Serial / Lot Lens [id number] 12.5mm+20.00 - [id number] - [id number] Implanted:Qty: 1 on 03/07/2024 by Cameron Molina DO at OR [facility] Left: Eye [employer] 10/19/2026 [id number] / [id number] / [id number] documented as of this encounter Advance Directives [...] Discussed due to patient's condition Care Teams Conservation Educator Relationship Specialty Start Date End Date Maritza Lyles MD 200 [place] [address] PCP - General Internal Medicine 10/03/20 documented as of this encounter
--- OUTSIDE RECORDS SUMMARY | 2024-05-01 07:37 | External Medical Summary | Summary of Care ---
Author Name Unknown Organization [facility] Address [address] [facility] [address] Phone [phone] Care Team Providers Care Sales Team Recruiter Name Role Phone Maritza Lyles MD Primary Care Provider + Reason for Visit * Reason Onset Date Comments Advice 03/06/2024 Encounter Details Date Type Department Care Team (Late st Contact Info) Description 03/06/2024 Telephone General Internal Medicine [facility] [place] 200 [facility] [place] [address] Maritza Lyles MD 200 [place] [address] Advice Allergies No known active allergiesdocumented as [...] yrs 11/16/2023,12/23/2022 Pneumococcal Conjugate Vacci ne, 20-valent ([id number]) 12/23/2022 Pneumococcal Polysaccharide PPV23 (Pneumovax) Seasonal Influenza, [...] encounter Miscellaneous Notes * Telephone Encounter - Lluvia Anthony OSA [...] Ralph RN - 03/12/2024 7:38 AM EDT [place] discontinued. IM: please make sure patient is [...] Team (Late st Contact Info) Description 03/15/2024 1:00 PM EDT Hem/Onc Treatment Hematology/Oncolog y Treatment, [place] [address] [place] [phone] Jeanie, Chair [address] Hem Onc Sc[address] [place] [address] 03/28/2024 4:15 PM EDT Imaging Radiology [address] 132 [facility] [place] [address] 03/30/2024 1:00 PM EDT Office Visit Hematology/Oncolog y [address] [place] [address] [place] [phone] Raquel Edmond CRNP [address] [place] [address] [place] [address] 04/04/2024 1:00 PM EDT Hospital Encounter OR [facility], Operating Room [facility] 132 [facility] [place] [phone] Cameron Molina, DO 21 [place] [address] 04/04/2024 1:00 PM EDT - 04/04/2024 1:46 PM EDT Surgery OR [facility], Operating Room OSS [address] [place] [phone] Cameron Molina, 21 [place] [address] RIGHT EXTRACAPSULAR CATARACT REMOVAL WITH INTRAOCULAR LENS 04/05/2024 9:00 AM EDT Office Visit Ophthalmology, [facility] [address] [place] [address] Cameron Molina, DO 21 [place] [address] 04/12/2024 9:30 AM EDT Office Visit Ophthalmology, [facility] 132 [facility] [place] [address] Cameron Molina, DO 21 [place] [address] 05/03/2024 3:45 PM EDT Office Visit Ophthalmology, [facility] 132 [facility] [place] [address] Cameron Molina, DO 21 [place] [address] Scheduled Procedures Name Priority Associated Diagnoses Date/Ti [...] this encounter Medical Devices Implanted Type Area Oracle Fusion Consultant Device Identifier Shelf Expiration Date Model / Serial / Lot Lens [id number] 12.5mm+20.00 - [id number] - [id number] Implanted:Qty: 1 on 03/07/2024 by Cameron Molina DO at OR [facility] Left: Eye [employer] 10/19/2026 [id number] / [id number] / [id number] documented as of this encounter Advance Directives [...] Discussed due to patient's condition Care Teams Sales Team Recruiter Relationship Specialty Start Date End Date Maritza Lyles MD [address] [place] [address], [place] [address] PCP - General Internal Medicine 10/03/20 documented as of this encounter
--- OUTSIDE RECORDS SUMMARY | 2024-05-01 07:37 | External Medical Summary | Summary of Care ---
Author Name Unknown Organization [facility] Address [address] [facility] [address] Phone [phone] Care Team Providers Care Complaint Evaluation Officer Name Role Phone Maritza Lyles MD Primary Care Provider + Reason for Visit * Reason Comments Follow Up Patient has an eye s urgery on the and wants to make sure that she is cleared for it. Encounter Details Date Type Department Care Team (Late st Contact Info) Description 03/05/2024 12:40 PM EDT Office Visit General Internal Medicine [facility] [place] [address] [place] [phone] Maritza Lyles MD [address] [place] [address] Preoperative general physical examination*; Iron deficiency anemia, unspecified iron deficiency anemia type; HTN, goal below 130/80; Type 2 diabetes mellitus with hemoglobin A1c goal of less than 7.0% (HCC) Allergies No known active allergiesdocumented as of [...] yrs 11/16/2023,12/23/2022 Pneumococcal Conjugate Vacci ne, 20-valent ([id number]) 12/23/2022 Pneumococcal Polysaccharide PPV23 (Pneumovax) Seasonal Influenza, [...] Sign Reading Time Taken Comments Blood Pressure 126/60 03/05/2024 12:53 PM EDT Pulse 96 03/05/2024 12:53 PM EDT Temperature 36.7 C (98 F) 03/05/2024 12:53 PM EDT Respiratory Rate 16 03/05/2024 12:53 PM EDT Oxygen Saturation 96% 03/05/2024 12:53 PM EDT Inhaled Oxygen Concentration - - Weight 83.7 kg (184 lb 9.6 oz) 03/05/2024 12:53 PM EDT Height - - Body Mass Index 34.32 02/22/2024 12:17 PM EDT documented in this encounter Progress Notes * Maritza Lyles MD - 03/05/2024 1:34 PM EDT HPI: Taj Laura is a 58 year old female who presents with: Chief Complaint Patient presents with Follow Up Patient has an eye surgery on the and wants to make sure that she is cleared for it. Patient is here for the recheck and has cataract surgery scheduled on 03/07/24 and 04/04/[address] Molina at [facility] surgical center. Chart reviewed with the patient including current meds, last labs and HM. No acute event since we saw patient last time including no recent fall or injuries. Hemoglobin AIC Results: Lab Results Component Value Date/Time HEMOGLOBIN A1C - [facility] 7.0 (H) 02/14/2024 09:31 AM HEMOGLOBIN A1C - [facility] 7.0 (H) 06/28/2023 09:42 AM HEMOGLOBIN A1C - [facility] 7.0 (H) 10/04/2022 02:02 PM HEMOGLOBIN A1C - [facility] 6.9 (H) 09/09/2020 03:30 PM HEMOGLOBIN A1C - [facility] 7.0 (H) 07/01/2020 10:00 AM HEMOGLOBIN A1C - [facility] 6.6 (H) 01/24/2020 10:55 AM Denies any chestpain/sob/palpitation/swealling in the legs. Denies any cough/sob/wheezing/chestpain. Denies nausea,vomiting, diarrhoea, constipation, abdominal pain or blood in stool. Heart burn is better.. Has good appetite. No urinary symptoms. Denies any anxiety or depression. Patient Active Problem List Diagnosis NEELAM (generalized anxiety disorder) Type 2 diabetes mellitus with hemoglobin A1c goal of less than 7.0% ([facility]) Hyperlipidemia with target LDL less than 100 HTN, goal below 130/80 Gastroesophageal reflux disease without esophagitis Stress-induced cardiomyopathy Combined forms of age-related cataract of both eyes Iron deficiency anemia Current Outpatient Medications Medication Sig Dispense Refill [...] by mouth at bedtime.) 90 Tablet 3 No current facility-administered medications for this visit. The patient's medication list was reviewed and updated as needed. 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 All system negative except as per hpi. OBJECTIVE: BP 126/60 | Pulse 96 | Temp 36.7 C (98 F) (Tympanic) | Resp 16 | Wt 83.7 kg (184 lb 9.6 oz) | SpO2 96% | BMI 34.32 kg/m | BSA 1.91 m PHYSICAL EXAM: HEENT: PERRLA, EOMI, anicteric sclera, b/l tympanic membrane is pearly white, no erythema, no pharyngeal erythema, no lymphadenopathy, neck supple CVS: RRR, no murmurs, rubs or gallops, s1 s 2normal. RESP: clear to auscultation, no wheezing or crackles ABD: soft, NT/ND EXT: no edema, cyanosis, peripheral pulses palpable bilaterally No large joint swelling, no redness, range of motion normal. Skin normal. Gait normal. Mood stable No focal weakness ASSESSMENT AND PLAN: Preoperative general physical examination (Primary) Clinically stable for surgery. NPO after midnight. Repeat cbcd, ferritin today. Hold lasix, metformin in am and take after the surgery. Can take antiHTn meds. HOLD PPI, Statin in morning of surgery. Iron deficiency anemia, unspecified iron deficiency anemia type - CBC WITH WBC DIFFERENTIAL; Future; Expected date: 03/05/2024 - FERRITIN; Future; Expected date: 03/05/2024 HTN, goal below 130/80 On losartan. On metoprolol. Type 2 diabetes mellitus with hemoglobin A1c goal of less than 7.0% (HCC) On metformin. Diet discussed. Last hba1c 7. Maritza Lyles MD documented in this encounter Nursing Notes * Rodri Terry MED ASSIST - 03/05/2024 12:52 PM EDT The patient has been properly identified by confirmation of name and date of . Chief Complaint Patient presents with Follow Up Patient has an eye surgery on the and wants to make sure that she is cleared for it. documented in this encounter Plan of Treatment Upcoming Encounters Date Type Department Care Team (Late st Contact Info) Description 03/07/2024 1:06 PM EDT Hospital Encounter OR [facility], Operating Room OSS [address] [place] [phone] Cameron Molina, DO 21 [place] [address] 03/07/2024 1:06 PM EDT - 03/07/2024 1:52 PM EDT Surgery OR [facility], Operating Room [facility] [address] [place] [phone] Cameron Molina, DO 21 [place] [address] LEFT EXTRACAPSULAR CATARACT REMOVAL WITH INTRAOCULAR LENS 03/08/2024 8:45 AM EDT Office Visit Ophthalmology, [facility] 132 [facility] [place] [address] Cameron Molina, DO 21 [place] [address] 03/08/2024 1:15 PM EDT Imaging Radiology [facility]st [facility] 132 [facility] [place] [address] 03/09/2024 1:00 PM EDT Hem/Onc Treatment Hematology/Oncolog y Treatment, [address], [place] [phone] Jeanie, Chair 5 Hem Onc Scenery 200 [facility] [place] [address] 03/15/2024 1:00 PM EDT Hem/Onc Treatment Hematology/On[facility]olog [facility] Treatment, [place] [facility] [phone] Jeanie, Chair 10 Hem Onc Scenery 200 [facility] [place] [address] 03/30/2024 1:00 PM EDT Office Visit Hematology/Oncolog y [facility] [place] [address] [place] [phone] Raquel Edmond CRNP [address] [place] [address] 04/04/2024 1:00 PM EDT Hospital Encounter OR [facility], Operating Room OSS 132 [facility] [place] [phone] Cameron Molina, DO 27 [place] [address] 04/04/2024 1:00 PM EDT - 04/04/2024 1:46 PM EDT Surgery OR [facility], Operating Room OSS 132 [facility] [place] [phone] Cameron Molina, DO 21 [place] [address] RIGHT EXTRACAPSULAR CATARACT REMOVAL WITH INTRAOCULAR LENS 04/05/2024 9:00 AM EDT Office Visit Ophthalmology, [facility] 132 [facility] [place] [address] Cameron Molina, 21 [place] [address] 04/12/2024 9:30 AM EDT Office Visit Ophthalmology [facility] 132 [facility] [place] [address] Cameron Molina, DO 21 [place] [address] 05/03/2024 3:45 PM EDT Office Visit Ophthalmology [facility] 132 [facility] [place] [address] Cameron Molina, DO 21 [facility] [place] [address] Pending Results Name Type Priority Associated Diagnoses Date /Time CBC WITH WBC DIFFERENTIAL Lab Routine Iron deficiency anemia, unspecified iron deficiency anemia type 03/05/2024 1:45 PM EDT FERRITIN Lab Routine Iron deficiency anemia, unspecified iron deficiency anemia type 03/05/2024 1:45 PM EDT Scheduled Orders Name Type Priority Associated Diagnoses Orde r Schedule CBC WITH WBC DIFFERENTIAL Lab Routine Iron deficiency anemia, unspecified iron deficiency anemia type Expected: 03/05/2024 (Approximate), Expires: 03/05/2025 FERRITIN Lab Routine Iron deficiency anemia, unspecified iron deficiency anemia type Expected: 03/05/2024 (Approximate), Expires: 03/05/2025 Scheduled Procedures Name Priority Associated Diagnoses Date/Ti [...] ( season) 2023 12/23/2020, 12/02/2020 Albumin/Creatinine Ratio 10/04/20232 023, 11/03/2021, 09/09/2020, Additional history exists Mammogram [...] Other and combined forms of senile cataract Preoperative general physical examination- Primary Other specified pre-operative examination Iron deficiency anemia, unspecified iron deficiency anemia type HTN, goal below 130/80 Unspecified essential hypertension Type 2 diabetes mellitus with hemoglobin A1c goal of less than 7.0% (HCC) Cataract Unspecified cataract Screening mammogram for breast cancer Cataract Unspecified cataract documented in this encounter Advance Directives * Full Code (Latest Code Status on File) Date Activated Date Inactivated Comments 02/22/2024 12:02 PM 02/22/2024 5:27 PM Question Answer Comments Discussion of Advance Direct jose david occurred with: Not Discussed due to patient's condition Care Teams Complaint Evaluation Officer Relationship Specialty Start Date End Date Maritza Lyles MD 200 [facility] [place] [address] PCP - General Internal Medicine 10/03/20 documented as of this encounter"
--- OUTSIDE RECORDS SUMMARY | 2024-05-01 07:38 | External Medical Summary | Summary of Care ---
Author Name Unknown Organization [facility] Address [address] [facility] [address] Phone [phone] Care Team Providers Care Biological Sciences Professor Name Role Phone Maritza Lyles MD Primary Care Provider + Reason for Visit * Reason Comments Cataracts Encounter Details Date Type Department Care Team (Late st Contact Info) Description 02/16/2024 2:30 PM EDT Office Visit Ophthalmology, [facility] 132 [facility] [place] [address] Cameron Molina, DO 21 [facility] [place] [address] Combined forms of age-related cataract of both eyes* Allergies No known active allergiesdocumented as of this encounter (statuses as of 02/16/2024) Medications Medication Sig Dispensed Refills Start Date [...] as of this encounter (statuses as of 02/16/2024) Active Problems Problem Noted Date Diagnosed Date [...] as of this encounter (statuses as of 02/16/2024) Immunizations Name Administration Dates Next Due Hepatitis B, 20+ yrs 11/16/2023,12/23/2022 Pneumococcal Conjugate Vacci ne, 20-valent ([id number]) 12/23/2022 Pneumococcal Polysaccharide PPV23 (Pneumovax) Seasonal Influenza, [...] this encounter Progress Notes * Cameron Molina, DO - 02/16/2024 2:30 PM EDT 02/16/24 Taj Laura is a 58 year old patient here for IOL/amy Referred by [facility] optometry Inspector Final Assembly Electrical: Jaxon [id number] Past Ocular History, reviewed: Cataract OU A/P: Cataract OU Recommend CE/IOL left eye first. Risks, benefits, and alternatives were discussed with the patient.Explained the elective nature of the procedure and that no surgery is without risk. Discussed the option of continued non-surgical management and risks of worsening disease. Explained goals of surgery. No promises made re: outcome. Discussed options including glasses, surgery, observation. All pertinent risks and benefits reviewed with patient, including but not limited to: posterior capsule rupture, need for anterior vitrectomy, dropped/retained lens material, pain, inflammation, infection, abnormal IOP, retinal tear, retinal detachment, bleeding, need for more treatment/surgery, permanent vision loss. Typical postop course discussed and explained potential need for adjustment based on clinical course. The patient verbalized understanding of options, risks/benefits/alternatives of options, and that all questions/concerns were addressed. The patient verbalized a desire to proceed for CE/IOL Indication for removal = visually-significant both eyes, start OS Indication for cataract removal explained to patient, as well as expected postoperative visual outcome in setting of the patient's specific overall ocular health. Dilates = Fair, add MPF lidocaine Guttata = none PXF=none Retina = view hazy from cataract, however retina flat Flomax = Denies Claustrophobia = Denies Anesthesia =mac/topical Hx of refractive procedure=Denies IOL Measurements = Today - aim for plano IOL interpretation = Biometry (IOL) & topography (if indicated) will be obtained in near futureto determine the intended refractive target for this patient. These choices will be reflected in the final selection of the intraocular lens at the time of surgery. Discussed options for surgical anesthesia and potential risks/benefits/alternatives of all options. Discussed need for post-operative drops. Discussed potential need for corrective lenses post-operatively. Discussed possible need for anterior vitrectomy Discussed need for post-operative laser procedure (Nd:YAG capsulotomy). Discussed other potential causes for current decreased visual acuity. The patient was strongly encouraged to call with any questions regarding surgery before and after. + Trypan Diabetic Eye Exam -No evidence of Diabetic findings on anterior or posterior exam -Cont blood glucose control and HTN control -Explained pathophysiology of how diabetes affects eyes -RTC in 1 year for routine f/u Last performed 12/2023 Due next 12/2024 RTC DOS or sooner prn. A/P explained, patient verbalized understanding. Patient understands to f/u immediately with questions, concerns, or any ophthalmic issues. Cameron Molina DO 02/16/24 documented in this encounter Plan of Treatment Upcoming Encounters Date Type Department Care Team (Late st Contact Info) Description 02/22/2024 1:00 PM EDT Hem/Onc Treatment Hematology/Oncolog y Treatment, [place] [address] [facility] [place] [facility] [place] [phone] Jeanie, Chair 7 Hem Onc Scenery [address] [facility] [address] 02/22/2024 1:05 PM EDT [facility] Encounter [facility] [place] [phone] Cameron Molina DO 21 [place] [address] 02/22/2024 1:05 PM EDT - 02/22/2024 1:50 PM EDT Surgery OR [facility], Operating Room [facility] [address] [place] [phone] Cameron Molina DO 21 [place] [address] LEFT EXTRACAPSULAR CATARACT REMOVAL WITH INTRAOCULAR LENS 02/23/2024 9:15 AM EDT Office Visit Ophthalmology, [facility] 132 [facility] [place] [address] Cameron Molina, DO 21 [place] [address] 02/28/2024 10:00 AM EDT Office Visit General Internal Medicine [facility] 200 [facility] [place] [address] Maritza Lyles MD 200 [facility] [place] [address] 03/01/2024 2:15 PM EDT Office Visit Ophthalmology, [facility] 132 [facility] [place] [address] Cameron Molina, DO 21 [place] [address] 03/07/2024 1:05 PM EDT Hospital Encounter OR [facility], Operating Room [facility] 132 [facility] [place] [phone] Cameron Molina, DO 21 [place] [address] 03/07/2024 1:05 PM EDT - 03/07/2024 1:51 PM EDT Surgery OR [facility], Operating Room [facility] 132 [facility] [place] [phone] Cameron Molina, DO 21 [place] [address] RIGHT EXTRACAPSULAR CATARACT REMOVAL WITH INTRAOCULAR LENS 03/08/2024 8:45 AM EDT Office Visit Ophthalmology, [facility] 132 [facility] [place] [address] Cameron Molina, DO 21 [place] [address] 04/05/2024 3:45 PM EDT Office Visit Ophthalmology, [facility] [address] [place] [address] Cameron Molina, DO [address] [place] [address] Scheduled Orders Name Type Priority Associated Diagnoses Orde r Schedule COMPUTERIZED CORNEAL AMY Procedures Routine Combined forms of age-related cataract of both eyes Ordered: 02/16/2024 Scheduled Procedures Name Priority Associated Diagnoses Date/Ti me EXTRACAPSULAR CATARACT REMOVAL WITH INTRAOCULAR LENS Combined forms of age-related cataract of both eyes 02/22/2024 1:05 PM EDT EXTRACAPSULAR CATARACT REMOVAL WITH INTRAOCULAR LENS Cataract 03/07/2024 1:05 PM EDT COLONOSCOPY FLEXIBLE PROXIMAL DIAGNOSTIC Recall [...] Other and combined forms of senile cataract Combined forms of age-related cataract of left eye Other and combined forms of senile cataract Combined forms of age-related cataract of both eyes- Primary Other and combined forms of senile cataract Combined forms of age-related cataract of both eyes Other and combined forms of senile cataract Cataract Unspecified cataract documented in this encounter Care Teams Biological Sciences Professor Relationship Specialty Start Date End Date Maritza Lyles MD [facility] [place] [address] PCP - General Internal Medicine 10/03/20 documented as of this encounter
--- OUTSIDE RECORDS SUMMARY | 2024-05-01 07:38 | External Medical Summary | Summary of Care ---
Author Name Unknown Organization [facility] Address [address] [facility] [place] [address] Phone [phone] Care Team Providers Care Senior Web Applications Developer Name Role Phone Maritza Lyles MD Primary Care Provider + Reason for Visit * Reason Comments Infusion Venofer 2/ Encounter Details Date Type Department Care Team (Latest Contact Info) Description 03/01/2024 11:30 AM EDT Hem/Onc Treatment Hematology/Oncology Treatment, [address] [place] [address] Jeanie, Chair 8 Hem Onc [address] [address] Iron deficiency anemia due to chronic blood loss* Allergies No known active allergiesdocumented as of this encounter (statuses as of 03/02/2024) Medications Medication Sig Dispensed Refills Start Date End Date Status Aspirin 81 MG Oral Capsule TAKE 1 TABLET BY MOUTH EVERY DAY 05/23/2021 Active metFORMIN HCl 500 MG Oral Tablet (Glucophage)Indica tions:Type 2 diabetes mellitus with hemoglobin A1c goal of less than 7.0% ([facility]) Take 2 Tablets by mouth 2 [...] as of this encounter (statuses as of 03/02/2024) Active Problems Problem Noted Date Diagnosed Date [...] as of this encounter (statuses as of 03/02/2024) Immunizations Name Administration Dates Next Due Hepatitis B, 20+ yrs 11/16/2023,12/23/2022 Pneumococcal Conjugate Vacci ne, 20-valent ([id number]) 12/23/2022 Pneumococcal Polysaccharide PPV23 (Pneumovax) Seasonal Influenza, [...] Office Visit General Internal Medicine [address] [place] [address] [place] [address] Maritza Lyles MD [address] [place] [address] 03/07/2024 1:06 PM EDT Hospital Encounter OR [facility], Operating Room [facility] [address] [place] [phone] Cameron Molina DO [address] [place] [address] 03/07/2024 1:06 PM EDT - 03/07/2024 1:52 PM EDT Surgery OR [facility], Operating Room [facility] 132 [facility] [place] [phone] Cameron Molina, DO [address] [place] [id number] LEFT EXTRACAPSULAR CATARACT REMOVAL WITH INTRAOCULAR LENS 03/08/2024 8:45 AM EDT Office Visit Ophthalmology, [facility] 132 [facility] [place] [address] Cameron Molina, DO [address] [place] [address] 03/08/2024 1:15 PM EDT Imaging Radiology [address] 132 [facility] [place] [address] 03/09/2024 1:00 PM EDT Hem/Onc Treatment Hematology/Oncolog y Treatment, [place] 200 [facility], [place] [phone] Jeanie, Chair 5 Hem Onc [address]en[address] [place] [address] 03/15/2024 1:00 PM EDT Hem/Onc Treatment Hematology/Oncolog [facility] Treatment, [place] [facility] [phone] Jeanie, Chair 10 Hem Onc [address]en[address] [place] [address] 03/30/2024 1:00 PM EDT Office Visit Hematology/Oncolog y Scenery Jeanie [place] [address] [place] [phone] Raquel Edmond CRNP [address] [place] [address] [place] [address] 04/04/2024 1:00 PM EDT Hospital Encounter OR [facility], Operating Room [facility] 132 [facility] [place] [address] Cameron Molina, DO [address] [place] [id number] 04/04/2024 1:00 PM EDT - 04/04/2024 1:46 PM EDT Surgery OR [facility], Operating Room [facility] 132 [facility] [place] [address] Cameron Molina, DO [address] [place] [id number] RIGHT EXTRACAPSULAR CATARACT REMOVAL WITH INTRAOCULAR LENS 04/05/2024 9:00 AM EDT Office Visit Ophthalmology, [facility] 132 [facility] [place] [address] Cameron Molina, 21 [place] [address] 04/12/2024 9:30 AM EDT Office Visit Ophthalmology, [facility] 132 [facility] [place] [address] Cameron Molina, 21 [place] [address] 05/03/2024 3:45 PM EDT Office Visit Ophthalmology, [facility] 132 [facility] [place] [address] Cameron Molian, DO [address] [place] [address] Scheduled Procedures Name Priority Associated Diagnoses Date/Ti [...] Intravenous, at 50 mL/hr, CONTINUOUS, Starting on Farbia 03/01/24 at 1245, Until Fariba 03/01/24 at 1746 Start Infusion 03/01/2024 11:52 AM EDT 500 mL 50 mL/hr documented in this encounter Advance Directives * Full Code (Latest Code Status on File) Date Activated Date Inactivated Comments 02/22/2024 12:02 PM 02/22/2024 5:27 PM Question Answer Comments Discussion of Advance Direct jose david occurred with: Not Discussed due to patient's condition Care Teams Senior Web Applications Developer Relationship Specialty Start Date End Date Maritza Lyles MD [address] [place] [address] PCP - General Internal Medicine 10/03/20 documented as of this encounter
--- OUTSIDE RECORDS SUMMARY | 2024-05-01 07:38 | External Medical Summary | Summary of Care ---
Author Name Unknown Organization [facility] Address [address] [facility] [address] Phone [phone] Care Team Providers Care Technical Business Analyst Name Role Phone Maritza Lyles MD Primary Care Provider + Encounter Details Date Type Department Care Team (Late st Contact Info) Description 02/16/2024 Orders Only General Internal Medicine [facility] Jeanie [place] 200 [facility] [place] [address] Maritza Lyles MD 200 [facility] [place] [address] Allergies No known active allergiesdocumented as of this encounter (statuses as of 02/16/2024) Medications Medication Sig Dispensed Refills Start Date End Date Status Aspirin 81 MG Oral Capsule TAKE 1 TABLET BY MOUTH EVERY DAY 05/23/2021 Active metFORMIN HCl 500 MG Oral Tablet (Glucophage)Indica tions:Type 2 diabetes mellitus with hemoglobin A1c goal of less than 7.0% ([facility]) Take 2 Tablets by mouth 2 [...] yrs 11/16/2023,12/23/2022 Pneumococcal Conjugate Vacci ne, 20-valent ([id number]) 12/23/2022 Pneumococcal Polysaccharide PPV23 (Pneumovax) Seasonal Influenza, [...] 02/16/2024 2:30 PM EDT Office Visit Ophthalmology, [facility] 132 [facility] [place] [address] Cameron Molina, 21 [place] [address] 02/22/2024 1:05 PM EDT Hospital Encounter OR [facility], Operating Room [facility] [address] [place] [phone] Cameron Molina, 21 [place] [address] 02/22/2024 1:05 PM EDT - 02/22/2024 1:50 PM EDT Surgery OR [facility], Operating Room [facility] [address] [place] [phone] Cameron Molina, 21 [place] [address] LEFT EXTRACAPSULAR CATARACT REMOVAL WITH INTRAOCULAR LENS 02/23/2024 9:15 AM EDT Office Visit Ophthalmology, [facility] [address] [place] [address] Cameron Molina DO [address] [place] [address] 02/28/2024 10:00 AM EDT Office Visit General Internal Medicine [address] [place] [address] [place] [address] aMritza Lyles MD [address] [facility] [place] [address] 03/01/2024 2:15 PM EDT Office Visit Ophthalmology, [facility] 132 [facility] [place] [address] Cameron Molina, DO 21 [place] [address] 03/07/2024 1:05 PM EDT Hospital Encounter OR [facility], Operating Room [facility] 132 [facility] [place] [address] Cameron Molina, DO [address] [place] [address] 03/07/2024 1:05 PM EDT - 03/07/2024 1:51 PM EDT Surgery OR [facility], Operating Room [facility] 132 [facility] [place] [phone] Cameron Molina, 21 [place] [id number] RIGHT EXTRACAPSULAR CATARACT REMOVAL WITH INTRAOCULAR LENS 03/08/2024 8:45 AM EDT Office Visit Ophthalmology, [facility] 132 [facility] [place] [address] Cameron Molina, 21 [place] [address] 04/05/2024 3:45 PM EDT Office Visit Ophthalmology, [facility] 132 [facility] [place] [address] Cameron Molina, 21 [place] [address] Scheduled Procedures Name Priority Associated Diagnoses Date/Ti [...] Not on filedocumented as of this encounter Care Teams Technical Business Analyst Relationship Specialty Start Date End Date Maritza Lyles MD 200 [facility] [place] [address] PCP - General Internal Medicine 10/03/20 documented as of this encounter
--- OUTSIDE RECORDS SUMMARY | 2024-05-01 07:38 | External Medical Summary | Summary of Care ---
Author Name Unknown Organization [facility] [address] [facility] [address] Phone [phone] Care Team Providers Care Web Content & Social Media Manager Name Role Phone Maritza Lyles MD Primary Care Provider + Encounter Details Date Type Department Care Team (Late st Contact Info) Description 02/23/2024 Telephone Trini Quinn [address] [place] [address] Cameron [facility]ina DO [facility] [place] [address] Allergies No known active allergiesdocumented as of this encounter (statuses as of 02/23/2024) Medications Medication Sig Dispensed Refills Start Date [...] as of this encounter (statuses as of 02/23/2024) Active Problems Problem Noted Date Diagnosed Date [...] as of this encounter (statuses as of 02/23/2024) Immunizations Name Administration Dates Next Due Hepatitis B, 20+ yrs 11/16/2023,12/23/2022 Pneumococcal Conjugate Vacci ne, 20-valent ([id number]) 12/23/2022 Pneumococcal Polysaccharide PPV23 (Pneumovax) Seasonal Influenza, [...] encounter Miscellaneous Notes * Telephone Encounter - Jackie Monk OSA - 02/23/2024 2:10 PM EDT Called and spoke to son. He is ok with cataract surgery on 03/07 and 04/04 (make up day for 02/21) ARNAV Recinos 02/23/2024 2:10 PM documented in this encounter Plan of Treatment Upcoming Encounters Date Type Department Care Team (Late st Contact Info) Description 02/28/2024 10:00 AM EDT Office Visit General Internal Medicine [facility] 200 [facility] [place] [address] aMritza Lyles MD 200 [facility] [place] [address] 03/01/2024 11:30 AM EDT Hem/Onc Treatment Hematology/Oncolog [facility], [place] [facility] [phone] Jeanie Chair 8 Hem Onc [address] [place] [address] 03/07/2024 1:05 PM EDT Hospital Encounter OR [facility], Operating Room [facility] [address] [place] [phone] Cameron Molina, DO 21 [place] [id number] 03/07/2024 1:05 PM EDT - 03/07/2024 1:51 PM EDT Surgery OR [facility], Operating Room [facility] [address] [place] [phone] Cameron Molina, DO 21 [place] [id number] LEFT EXTRACAPSULAR CATARACT REMOVAL WITH INTRAOCULAR LENS 03/08/2024 8:45 AM EDT Office Visit Ophthalmology, [facility] 132 [facility] [place] [address] Cameron Molina, DO 21 [place] [address] 03/08/2024 1:30 PM EDT Hem/Onc Treatment Hematology/Oncolog y Treatment, [place] 200 [facility], [place] [phone] 03/15/2024 1:00 PM EDT Hem/Onc Treatment Hematology/Oncolog y Treatment, [place] 200 [facility], [place] [phone] Jeanie, Chair 3 Hem Onc [facility] 200 [facility] [place], [place] [address] 03/30/2024 1:00 PM EDT Office [facility] [place] 200 [facility], [place] [phone] Raquel Edmond, NICCI [address] [place] [address] [place] [address] 04/04/2024 1:00 PM EDT Hospital Encounter OR [facility], Operating Room [facility] 132 [facility] [place] [phone] Cameron Molina, DO 21 [place] [address] 04/04/2024 1:00 PM EDT - 04/04/2024 1:46 PM EDT Surgery OR [facility], Operating Room [facility] 132 [facility] [place] [phone] Cameron Molina, DO 21 [place] [address] RIGHT EXTRACAPSULAR CATARACT REMOVAL WITH INTRAOCULAR LENS 04/05/2024 9:00 AM EDT Office Visit Ophthalmology, [facility] 132 [facility] [place] [address] Cameron Molina, DO 21 [place] [address] 04/12/2024 9:30 AM EDT Office Visit Ophthalmology, [facility] 132 [facility] [place] [address] Cameron Molina, DO 21 [place] [address] 05/03/2024 3:45 PM EDT Office Visit Ophthalmology, [facility] 132 [facility] [place] [address] Cameron Molina, DO [address] [place] [address] Scheduled Procedures Name Priority Associated Diagnoses Date/Ti me EXTRACAPSULAR CATARACT REMOVAL WITH INTRAOCULAR LENS Cataract 03/07/2024 1:05 PM EDT EXTRACAPSULAR CATARACT REMOVAL WITH [...] Not on filedocumented as of this encounter Advance Directives * Full Code (Latest Code Status on File) Date Activated Date Inactivated Comments 02/22/2024 12:02 PM 02/22/2024 5:27 PM Question Answer Comments Discussion of Advance Direct jose david occurred with: Not Discussed due to patient's condition Care Teams Web Content & Social Media Manager Relationship Specialty Start Date End Date Maritza Lyles MD 200 [facility] [place], [place] [address] PCP - General Internal Medicine 10/03/20 documented as of this encounter
--- OUTSIDE RECORDS SUMMARY | 2024-05-01 07:38 | External Medical Summary | Summary of Care ---
Author Name Unknown Organization [facility] Address [address] [place] [address] Phone [phone] Care Team Providers Care Remote Encoding Center Manager Name Role Phone Maritza Lyles MD Primary Care Provider + Encounter Details Date Type Department Care Team (Late st Contact Info) Description 02/22/2024 Orders Only General Internal Medicine [address] [place] 200 [facility] [place] [phone] Maritza Lyles MD 200 [facility] [place] [address] Allergies No known active allergiesdocumented as of this encounter (statuses as of 02/22/2024) Medications Medication Sig Dispensed Refills Start Date End Date Status Aspirin 81 MG Oral Capsule TAKE 1 TABLET BY MOUTH EVERY DAY 05/23/2021 Suspended metFORMIN HCl 500 MG Oral Tablet (Glucophage)Indic ations:Type 2 diabetes mellitus with hemoglobin A1c goal of less than 7.0% (HCC) Take 2 Tablets by mouth 2 times a day with morning and evening meals. 360 Tablet 3 11/16/2022 Suspended Additional Information Furosemide 20 MG Oral Tablet (Lasix) Take 1 Tablet by mouth in the morning. 90 Tablet 3 02/17/2023 Suspended Additional Information Omeprazole 40 MG Oral [...] as of this encounter (statuses as of 02/22/2024) Active Problems Problem Noted Date Diagnosed Date [...] as of this encounter (statuses as of 02/22/2024) Immunizations Name Administration Dates Next Due Hepatitis B, 20+ yrs 11/16/2023,12/23/2022 Pneumococcal Conjugate Vacci ne, 20-valent ([id number]) 12/23/2022 Pneumococcal Polysaccharide PPV23 (Pneumovax) Seasonal Influenza, [...] Team (Late st Contact Info) Description 02/23/2024 9:15 AM EDT Office Visit Ophthalmology, [facility] 132 [facility] [place] [address] Cameron Molina, DO 21 [place] [address] 02/28/2024 10:00 AM EDT Office Visit General Internal Medicine [facility] [address] [place] [address] Maritza Lyles MD 200 [facility] [place] [address] 03/01/2024 2:15 PM EDT Office Visit Ophthalmology, [facility] 132 [facility] [place] [address] Cameron Molina, 21 [place] [address] 03/07/2024 1:05 PM EDT Hospital Encounter OR [facility], Operating Room [facility] [address] [place] [phone] Cameron Molina, DO 21 [place] [address] 03/07/2024 1:05 PM EDT - 03/07/2024 1:51 PM EDT Surgery [facility], Operating Room [facility] [address] [place] [phone] Cameron Molina, 21 [place] [address] RIGHT EXTRACAPSULAR CATARACT REMOVAL WITH INTRAOCULAR LENS 03/08/2024 8:45 AM EDT Office Visit Ophthalmology, [facility] 132 [facility] [address] Cameron Molina, DO 21 [place] [address] 03/30/2024 1:00 PM EDT Office Visit Hematology/Oncolog y [facility] Jeanie [place] [address] [place] [address] Raquel Edmond, NICCI 400 [facility] [place] [address] 04/05/2024 3:45 PM EDT Office Visit Ophthalmology, [facility] 132 [facility] [place] [address] Cameron Molina, 21 [place] [address] Scheduled Procedures Name Priority Associated Diagnoses Date/Ti me EXTRACAPSULAR CATARACT REMOVAL WITH INTRAOCULAR LENS Combined forms of age-related cataract of both eyes 02/22/2024 12:50 PM EDT EXTRACAPSULAR CATARACT REMOVAL WITH INTRAOCULAR [...] Activated Date Inactivated Comments 02/22/2024 12:02 PM Question Answer Comments Discussion of Advance Direct jose david occurred with: Not Discussed due to patient's condition Care Teams Remote Encoding Center Manager Relationship Specialty Start Date End Date Maritza Lyles MD [address] [place], [place] [address] PCP - General Internal Medicine 10/03/20 documented as of this encounter
--- OUTSIDE RECORDS SUMMARY | 2024-05-01 07:38 | External Medical Summary ---
Author Name Unknown Address Unknown Organization [facility] [address] [place] [address] Laboratory Report Ordering Provider Test Date Status HORTENCIA AWAN 03/05/2024 13:45:23 Final Observation Date Value Abnormality Reference (Units ) Status SYNC LEUKOCYTES IN BLOOD BY AUTOMATED COUNT 03/05/2024 13:45:23 9.97 4.00-10.80 (K/uL) Final Neutrophils/100 leukocytes in Blood by Manual count 03/05/2024 13:45:23 51.0 40.0-75.0 (%) Final Lymphocytes/100 leukocytes in Blood by Manual count 03/05/2024 13:45:23 37.0 18.0-42.0 (%) Final Monocytes/100 leukocytes in Blood by Manual count 03/05/2024 13:45:23 8.0 1.0-11.0 (%) Final Basophils/100 leukocytes in Blood by Manual count 03/05/2024 13:45:23 2.0 0.0-2.0 (%) Final Metamyelocytes/100 leukocytes in Blood by Manual count 03/05/2024 13:45:23 2.0 Above high normal <=0.0 (%) Final Neutrophils [#/volume] in Blood by Manual count 03/05/2024 13:45:23 5.08 1.80-7.70 (K/uL) Final Lymphocytes [#/volume] in Blood by Manual count 03/05/2024 13:45:23 3.69 1.00-4.80 (K/uL) Final Monocytes [#/volume] in Blood by Manual count 03/05/2024 13:45:23 0.80 0.00-1.10 (K/uL) Final Basophils [#/volume] in Blood by Manual count 03/05/2024 13:45:23 0.20 0.00-0.20 (K/uL) Final Metamyelocytes [#/volume] in Blood by Manual count 03/05/2024 13:45:23 0.20 Above high normal <=0.00 (K/uL) Final Nucleated erythrocytes/100 leukocytes [Ratio] in Blood by Automated count 03/05/2024 13:45:23 Final Acanthocytes [Presence] in Blood by Light microscopy 03/05/2024 13:45:23 Moderate Abnormal None Seen Final Performing Location [facility] [id number] [place] [address]
--- OUTSIDE RECORDS SUMMARY | 2024-05-01 07:38 | External Medical Summary | Summary of Care ---
Author Name Unknown Organization [facility] Address [address] [facility] [address] Phone [phone] Care Team Providers Care Pediatric Dental Hygienist Name Role Phone Maritza Lyles MD Primary Care Provider + Reason for Visit * Reason Comments IV Therapy Venofer Encounter Details Date Type Department Care Team (Latest Contact Info) Description 02/23/2024 1:30 PM EDT Hem/Onc Treatment Hematology/Oncology Treatment, [address] [place] [address] Jeanie, Chair 2 Hem Onc [address] [address] Iron deficiency anemia due to [...] yrs 11/16/2023,12/23/2022 Pneumococcal Conjugate Vacci ne, 20-valent ([id number]) 12/23/2022 Pneumococcal Polysaccharide PPV23 (Pneumovax) Seasonal Influenza, [...] AM EDT Office Visit General Internal Medicine [facility] [address] [place] [address] Maritza Lyles MD [address] [place] [address] 03/01/2024 11:30 AM EDT Hem/Onc Treatment Hematology/Oncolog y Treatment, [place] [address] [place] [phone] Jeanie, Chair 8 Hem Onc [facility] [address] [place] [address] 03/07/2024 1:05 PM EDT Hospital Encounter OR [facility], Operating Room [facility] [address] [place] [phone] Cameron Molina, DO [address] [place] [place] [address] 03/07/2024 1:05 PM EDT - 03/07/2024 1:51 PM EDT Surgery OR [facility], Operating Room [facility] [address] [place] [phone] Cameron Molina, DO [address] [place] [place] [address] LEFT EXTRACAPSULAR CATARACT REMOVAL WITH INTRAOCULAR LENS 03/08/2024 8:45 AM EDT Office Visit Ophthalmology, [facility] 132 [facility] [place] [address] Cameron Molina, DO [address] [place] [address] 03/08/2024 1:30 PM EDT Hem/Onc Treatment Hematology/Oncolog [address] [phone] 03/15/2024 1:00 PM EDT Hem/Onc Treatment Hematology/Oncolog [address] [phone] Jeanie, Chair 3 Hem Onc [address] [place] [address] 03/30/2024 1:00 PM EDT Office Visit Hematology/Oncolog y [facility] Jeanie [address] [place] [phone] Raquel Edmond CRNP [address] [facility] [place] [address] 04/04/2024 1:00 PM EDT Hospital Encounter OR [facility], Operating Room [facility] [address] [place] [address] Cameron Molina, DO [address] [place] [place] [address] 04/04/2024 1:00 PM EDT - 04/04/2024 1:46 PM EDT Surgery OR [facility], Operating Room [facility] [address] [place] [address] Cameron Molina, DO [address] [place] [place] [address] RIGHT EXTRACAPSULAR CATARACT REMOVAL WITH INTRAOCULAR LENS 04/05/2024 9:00 AM EDT Office Visit Ophthalmology, [facility] 132 [facility] [place] [address] Cameron Molina, DO [address] [place] [address] 04/12/2024 9:30 AM EDT Office Visit Ophthalmology, [facility] 132 [facility] [place] [address] Cameron Molina, DO [address] [place] [address] 05/03/2024 3:45 PM EDT Office Visit Ophthalmology, [facility] 132 [facility] [place] [address] Cameron Molina, [address] [place] [place] [address] Scheduled Procedures Name Priority Associated Diagnoses Date/Ti [...] to blood loss (chronic) Cataract Unspecified cataract Cataract Unspecified cataract documented in this encounter Administered Medications Active Administered Medications - up to 3 most recent administrations Medication Order MAR Action Action Date Dose Rate Site diphenhydrAMINE (Benadryl) inj 50 mg 50 mg, IV Push, ONCE PRN Other, Hypersensitivity Reaction, Starting on Tue02/23/24 at 1329, Until Tue02/24/24 at 1328, For 24 hours EPINEPHrine 1 MG/ML inj 0.3 mg 0.3 mg, Intramuscular, ONCE PRN Other, Hypersensitivity Reaction or Anaphylaxis, Starting on Tue02/23/24 at 1329, Until Tue02/24/24 at 1328, For 24 hours hEParin 100 UNIT/ML Lock Flush inj 500 Units 500 Units (5 mL), IV Lock, PRN Other, IV Flush, Starting on Tue02/23/24 at 1329, Until Tue02/24/24 at 1328, For 24 hours, Do not flush if lock, PICC, or central line not in place; IV infusing or unable to flush. Hydrocortisone Sod Suc (PF) (Solu-Cortef) inj 100 mg 100 mg, IV Push, ONCE PRN Other, Hypersensitivity Reaction, Starting on Tue02/23/24 at 1329, Until Tue02/24/24 at 1328, For 24 hours NSS infusion 500 mL, Intravenous, at 50 mL/hr, CONTINUOUS, Starting on Tue02/23/24 at 1430, Until Tue02/24/24 at 0029 Start Infusion 02/23/2024 1:31 PM EDT 500 mL 50 mL/hr oxygen GAS Inhalation, OXYGEN, First dose on Tue02/23/24 at 1600, Until Discontinued, Device/Managed by: Low [...] Push, PRN Other, IV Flush, Starting on Fariba 02/23/24 at 1329, Until Tue02/24/24 at 1328, For 24 hours, Do not flush if [...] 1:45 PM EDT 300 mg 180 mL/hr documented in this encounter Advance Directives * Full Code (Latest Code Status on File) Date Activated Date Inactivated Comments 02/22/2024 12:02 PM 02/22/2024 5:27 PM Question Answer Comments Discussion of Advance Direct jose david occurred with: Not Discussed due to patient's condition Care Teams Pediatric Dental Hygienist Relationship Specialty Start Date End Date Maritza Lyles MD [address] [place] [address] PCP - General Internal Medicine 10/03/20 documented as of this encounter
--- OUTSIDE RECORDS SUMMARY | 2024-05-01 07:38 | External Medical Summary ---
Author Name Unknown Address Unknown Organization K01:[facility] - [address] [place] [address] Laboratory Report Ordering Provider Test Date Status HORTENCIA AWAN 03/05/2024 13:45:23 Final Observation Date Value Abnormality Reference (Units ) Status Ferritin 03/05/2024 13:45:23 311 Above high normal 13 -150 (ng/mL) Final Postmenopausal women have hi gher ferritin levels than pre-menopausal women. The above reference interval is based on pre-menopausal women. Performing Location [facility] - [address] [place] [address]
--- OUTSIDE RECORDS SUMMARY | 2024-05-01 07:38 | External Medical Summary | Summary of Care ---
Author Name Unknown Organization [facility] Address [address] [facility] [place] [address] Phone [phone] Care Team Providers Care Lead Fabricator Name Role Phone Maritza Lyles MD Primary Care Provider + Reason for Visit * Reason Comments Outpatient Testing Encounter Details Date Type Department Care Team (Late st Contact Info) Description 02/20/2024 1:40 PM EDT Laboratory Laboratory [facility] [place] [address] [place] [phone] Pod3, Specimen Drop Off [facility] [address] [place] [address] Iron deficiency anemia, unspecified iron deficiency anemia type Allergies No known active allergiesdocumented as of this encounter (statuses as of 02/20/2024) Medications Medication Sig Dispensed Refills Start Date [...] as of this encounter (statuses as of 02/20/2024) Active Problems Problem Noted Date Diagnosed Date [...] as of this encounter (statuses as of 02/20/2024) Immunizations Name Administration Dates Next Due Hepatitis B, 20+ yrs 11/16/2023,12/23/2022 Pneumococcal Conjugate Vacci ne, 20-valent ([id number]) 12/23/2022 Pneumococcal Polysaccharide PPV23 (Pneumovax) Seasonal Influenza, [...] Team (Late st Contact Info) Description 02/22/2024 12:50 PM EDT Hospital Encounter OR [facility], Operating Room [facility] [address] [place] [phone] Cameron Molina, DO [address] [place] [place] [address] 02/22/2024 12:50 PM EDT - 02/22/2024 1:35 PM EDT Surgery OR [facility], Operating Room [facility] [address] [place] [phone] Cameron Molina, [address] [place] [address] LEFT EXTRACAPSULAR CATARACT REMOVAL WITH INTRAOCULAR LENS 02/23/2024 9:15 AM EDT Office Visit Ophthalmology, [facility] [address] [place] [address] Cameron Molina, [address] [place] [place] [address] 02/28/2024 10:00 AM EDT Office Visit [facility] [place] [address] [place] [address] Maritza Lyles MD 200 [facility] [place] [address] 03/01/2024 2:15 PM EDT Office Visit Ophthalmology, [facility] [address] [place] [address] Cameron Molina DO [address] [place] [place] [address] 03/07/2024 1:05 PM EDT Hospital Encounter OR [facility], Operating Room [facility] [address] [place] [phone] Cameron Molina, DO [address] [place] [place] [address] 03/07/2024 1:05 PM EDT - 03/07/2024 1:51 PM EDT Surgery OR [facility], Operating Room [facility] [place] [address] Cameron Molina, [address] [place] [address] RIGHT EXTRACAPSULAR CATARACT REMOVAL WITH INTRAOCULAR LENS 03/08/2024 8:45 AM EDT Office Visit Ophthalmology, [facility] 132 [facility] [place] [address] Cameron Molina DO [address] [place] [address] 03/30/2024 1:00 PM EDT Office Visit Hematology/Oncolog y [facility] [address] [facility] [address] Raquel Edmond, NICCI [address] [place] [address] [place] [address] 04/05/2024 3:45 PM EDT Office Visit Ophthalmology, [facility] 132 [facility] [place] [address] Cameron Molina DO [address] [place] [place] [address] Scheduled Procedures Name Priority Associated Diagnoses Date/Ti [...] deficiency anemia, unspecified iron deficiency anemia type Combined forms of age-related cataract of both eyes Other and combined forms of senile cataract Cataract Unspecified cataract documented in this encounter Care Teams Lead Fabricator Relationship Specialty Start Date End Date Maritza Lyles MD 200 [facility] [place] [address] PCP - General Internal Medicine 10/03/20 documented as of this encounter
--- OUTSIDE RECORDS SUMMARY | 2024-05-01 07:38 | External Medical Summary | Summary of Care ---
Author Name Unknown Organization [facility] Address [address] [facility] [address] Phone [phone] Care Team Providers Care Jive Developer Name Role Phone Maritza Lyles MD Primary Care Provider + Reason for Visit * Auth/Cert Specialty Diagnoses / Procedures Referred By Gus ramirez Referred To Contact Diagnoses Combined forms of age-related cataract of both eyes Combined forms of age-related cataract of both eyes [H25.813] Procedures REMOVE CATARACT, INSERT LENS PROSTH LEFT EXTRACAPSULAR CATARACT REMOVAL WITH INTRAOCULAR LENS Cameron Molina DO [address] [place] [address] Or [facility] [address] [place] [address] Referral ID Status Reason Start Date Expiration Date Visits Re quested Visits Authorized [id number] Encounter Details Date Type Department Care Team (Late st Contact Info) Description 02/22/2024 11:52 AM EDT - 02/22/2024 1:22 PM EDT Hospital Encounter OR [facility], Operating Room [facility] [address] [place] [address] Cameron Molina DO [address] [place] [address] Discharge Disposition: Home - Self Care Allergies [...] yrs 11/16/2023,12/23/2022 Pneumococcal Conjugate Vacci ne, 20-valent ([id number]) 12/23/2022 Pneumococcal Polysaccharide PPV23 (Pneumovax) Seasonal Influenza, [...] Sign Reading Time Taken Comments Blood Pressure 163/83 02/22/2024 12:17 PM EDT Pulse 101 02/22/2024 12:17 PM EDT Temperature 36.6 C (97.8 F) 02/22/2024 12:17 PM E DT Respiratory Rate 18 02/22/2024 12:17 PM EDT Oxygen Saturation 98% 02/22/2024 12:17 PM EDT Inhaled Oxygen Concentration - - Weight 84.4 kg (186 lb) 02/22/2024 12:17 PM EDT Height 156.2 cm (5' 1.5") 02/22/2024 12:17 PM ED T Body Mass Index 34.58 02/22/2024 12:17 PM EDT documented in this encounter H&P Notes * Cameron Molina DO - 02/15/2024 12:57 PM EDT Images from the original note were not included. See PCP clearance. Office Visit 02/09/2024 Family Practice [facility] Angelika Mena PA-C Family Medicine Age-related cataract of both eyes, unspecified age-related cataract type +6 more Dx pre-op exam; Referred by Cameron Molina DO Reason for Visit Progress Notes Angelika Mena PA-C (Physician Double Head Machine Operator - Certified) Family Medicine Expand All Collapse [...] History: Diagnosis Date Coronary artery disease involving pauma coronary artery of pauma heart without angina pectoris NEELAM (generalized anxiety disorder) Gastroesophageal reflux disease without esophagitis Hyperlipidemia LDL goal <100 Primary hypertension Type 2 diabetes mellitus without complication, without long-term current use of insulin (HCC) Past Surgical History Past Surgical History: Procedure Laterality Date COLONOSCOPY, DIAGNOSTIC (RECTUM) 10/08/2020 normal, repeat 10 yrs / COLONOSCOPY FLEXIBLE PROXIMAL DIAGNOSTIC performed by Khushi Inteirano MD at [facility] EGD, FLEXIBLE, DIAGNOSTIC 08/03/2021 duodenitis, gastriti, + H pylori / ESOPHAGOGASTRODUODENOSCOPY (EGD), FLEXIBLE, TRANSORAL, DIAGNOSTIC performed by Khushi Interiano MD at [facility] Allergies Review of patient's allergies indicates: No [...] Nursing Notes * Lucero Garcias RN - 02/22/2024 1:00 PM EDT Pt discharged ambulatory with son. * Lucero Garcias RN - 02/22/2024 12:50 PM EDT L cataract surgery cancelled due to NPO violation per Dr. Andrade and Dr. Molina. Dr. Molina spoke with pt and son, agreeable to plan of care. documented in this encounter Plan of Treatment Upcoming Encounters Date Type Department Care Team (Late st Contact Info) Description 02/23/2024 9:15 AM EDT Office Visit Ophthalmology, [facility] 132 [facility] [place] [address] Cameron Molina, DO [address] [place] [address] 02/28/2024 10:00 AM EDT Office Visit General Internal Medicine [facility] 200 [facility] [place] [address] Maritza Lyles MD 200 [place] [place] [address] 03/01/2024 2:15 PM EDT Office Visit Ophthalmology, [facility] 132 [facility] [place] [address] Cameron Molina DO [address] [place] [address] 03/07/2024 1:05 PM EDT Hospital Encounter OR [facility], Operating Room [facility] 132 [facility] [place] [phone] Cameron Molina DO [address] [place] [address] 03/07/2024 1:05 PM EDT - 03/07/2024 1:51 PM EDT Surgery OR [facility], Operating Room [facility] 132 [facility] [place] [address] Cameron Molina, DO [address] [place] [address] RIGHT EXTRACAPSULAR CATARACT REMOVAL WITH INTRAOCULAR LENS 03/08/2024 8:45 AM EDT Office Visit Ophthalmology, [facility] 132 [facility] [place] [address] Cameron Molina DO [address] [place] [address] 03/30/2024 1:00 PM EDT Office Visit Hematology/Oncolog y [facility] [address] [place] [address] Raquel Edmond, NICCI 400 [facility] [place] [address] 04/05/2024 3:45 PM EDT Office Visit Ophthalmology, [facility] 132 [facility] [place] [address] Cameron Molina DO [address] [place] [address] Scheduled Procedures Name Priority Associated Diagnoses Date/Ti [...] MAR Action Action Date Dose Rate Site isolyte-S pH 7.4 infusion Intravenous, at 10 mL/hr, Plasma-LYTE 148, isolyte-S, and isolyte-S pH 7.4 are considered equivalent - including for MAR barcode scanning., CONTINUOUS, Starting on Tue02/22/24 at 1245, Until Tue02/22/24 at 1722, Pre-Op documented in this encounter Active and Recently Administered Medications Times are shown in EDT. Scheduled Medication Order 02/20/2024 02/21/2024 02/22/2024 Diclofenac Sodium (Voltaren) 0.1 % ophthalmic solution 1 Drop 1 Drop, Left eye, Q5 MINUTES, First dose on Tue02/22/24 at 1245, Last dose on Tue02/22/24 at 1255, For 3 doses, PRE-OP: One drop to left eye every 5 minutes for 3 doses, Pre-Op 1245 (Due)1250 (Due) 1255 (Due) Lidocaine urethral/mucosal 2 % gel 2 mL Topical, ONCE, 1 dose, On Tue02/22/24 at 1245, 15 minutes prior to scheduled surgery time, apply 2 ml to superior and inferior fornices left eye & tape eyes shut., Pre-Op 1245 (Due) moxifloxacin (Vigamox) 0.5 % ophthalmic solution 1 Drop 1 Drop, Left eye, Q5 MINUTES, First dose on Tue02/22/24 at 1245, Last dose on Tue02/22/24 at 1255, For 3 doses, PRE-OP: One drop to left eye every 5 minutes for 3 doses, Pre-Op 1245 (Due)1250 (Due) 1255 (Due) prednisoLONE Acetate (Pred Forte) 1 % ophthalmic suspension 1 Drop 1 Drop, Left eye, Q5 MINUTES, First dose on Tue02/22/24 at 1245, Last dose on Tue02/22/24 at 1255, For 3 doses, PRE-OP: One drop to left eye every 5 minutes for 3 doses., Pre-Op 1245 (Due)1250 (Due) 1255 (Due) proparacaine (Alcaine) 0.5 % ophthalmic solution 1 Drop 1 Drop, Left eye, ONCE, On Tue02/22/24 at 1245, For 1 dose, PRE-OP: 15 minutes prior to scheduled surgery time for 1 dose, Pre-Op 1245 (Due) tropicamide 1%-cyclopentolate 1%-phenylephrine 2.5% ophthalmic solution 1 Drop 1 Drop, Left eye, Q5 MINUTES, First dose on Tue02/22/24 at 1245, Last dose on Tue02/22/24 at 1255, For 3 doses 1245 (Due)1250 (Due) 1255 (Due) Continuous Medication Order 02/20/2024 02/21/2024 02/22/2024 isolyte-S pH 7.4 infusion Intravenous, at 10 mL/hr, Plasma-LYTE 148, isolyte-S, and isolyte-S pH 7.4 are considered equivalent - including for MAR barcode scanning., CONTINUOUS, Starting on Tue02/22/24 at 1245, Until Tue02/22/24 at 1722, Pre-Op 1245 (Due) documented in this encounter Advance Directives * Full Code (Latest Code Status on File) Date Activated Date Inactivated Comments 02/22/2024 12:02 PM 02/22/2024 5:27 PM Question Answer Comments Discussion of Advance Direct jose david occurred with: Not Discussed due to patient's condition Care Teams Jive Developer Relationship Specialty Start Date End Date Maritza Lyles MD 200 [facility] [place], [place] [address] PCP - General Internal Medicine 10/03/20 documented as of this encounter
--- OUTSIDE RECORDS SUMMARY | 2024-05-01 07:38 | External Medical Summary | Summary of Care ---
Author Name Unknown Organization [facility] Address [address] [facility] [address] Phone [phone] Care Team Providers Care Jewelry Designer Name Role Phone Maritza Lyles MD Primary Care Provider + Reason for Visit * Reason Comments Outpatient Testing Encounter Details Date Type Department Care Team (Late st Contact Info) Description 02/17/2024 10:20 AM EDT [facility] [place] [address] [place] [address] [place], Lab [address] [place] [address] Arrived Allergies No known active allergiesdocumented as of this encounter (statuses as of 02/17/2024) Medications Medication Sig Dispensed Refills Start Date [...] as of this encounter (statuses as of 02/17/2024) Active Problems Problem Noted Date Diagnosed Date [...] as of this encounter (statuses as of 02/17/2024) Immunizations Name Administration Dates Next Due Hepatitis B, 20+ yrs 11/16/2023,12/23/2022 Pneumococcal Conjugate Vacci ne, 20-valent ([id number]) 12/23/2022 Pneumococcal Polysaccharide PPV23 (Pneumovax) Seasonal Influenza, [...] Team (Late st Contact Info) Description 02/22/2024 12:20 PM EDT Hospital Encounter OR [facility], Operating Room [facility] 132 [facility] [place] [phone] Cameron Molina, DO [address] [place] [id number] 02/22/2024 12:20 PM EDT - 02/22/2024 1:05 PM EDT Surgery OR [facility], Operating Room [facility] [address] [place] [phone] Cameron Molina DO [address] [place] [address] LEFT EXTRACAPSULAR CATARACT REMOVAL WITH INTRAOCULAR LENS 02/22/2024 1:00 PM EDT Hem/Onc Treatment Hematology/Oncolog y Treatment, [place] [facility] [phone] Jeanie, Chair 7 Hem Onc [address] [place] [address] 02/23/2024 9:15 AM EDT Office Visit Ophthalmology, [facility] 132 [facility] [place] [address] Cameron Molina, DO [address] [place] [address] 02/28/2024 10:00 AM EDT Office Visit General Internal Medicine [facility] [place] 200 [place] [address] Maritza Lyles MD 200 [facility] [place] [address] 03/01/2024 2:15 PM EDT Office Visit Ophthalmology, [facility] 132 [facility] [place] [address] Cameron Molina, DO [address] [place] [address] 03/07/2024 1:05 PM EDT Hospital Encounter OR [facility], Operating Room [facility] 132 [facility] [place] [phone] Cameron Molina, DO [address] [place] [address] 03/07/2024 1:05 PM EDT - 03/07/2024 1:51 PM EDT Surgery OR [facility], Operating Room [facility] 132 [facility] [place] [phone] Cameron Molina, DO [address] [place] [address] RIGHT EXTRACAPSULAR CATARACT REMOVAL WITH INTRAOCULAR LENS 03/08/2024 8:45 AM EDT Office Visit Ophthalmology, [facility] 132 [facility] [place] [address] Cameron Molina, DO [address] [place] [address] 03/30/2024 1:00 PM EDT Office Visit Hematology/Oncolog y [facility] [address] [facility] [address] Raquel Edmond CRNP [address] [place] [address] [place] [address] 04/05/2024 3:45 PM EDT Office Visit Ophthalmology, [facility] 132 [facility] [place] [address] Cameron Molina, DO 21 [facility] [place] [address] Scheduled Procedures Name Priority Associated Diagnoses Date/Ti me EXTRACAPSULAR CATARACT REMOVAL WITH INTRAOCULAR LENS Combined forms of age-related cataract of both eyes 02/22/2024 12:20 PM EDT EXTRACAPSULAR CATARACT REMOVAL WITH INTRAOCULAR [...] filedocumented as of this encounter Care Teams Jewelry Designer Relationship Specialty Start Date End Date Maritza Lyles MD [address] [place] [address] PCP - General Internal Medicine 10/03/20 documented as of this encounter
--- OUTSIDE RECORDS SUMMARY | 2024-05-01 07:38 | External Medical Summary | Summary of Care ---
Author Name Unknown Organization [facility] Address [address] [place] [facility] [place] [place] [address] Phone [phone] Care Team Providers Care Manager Of Financial Name Role Phone Maritza Lyles MD Primary Care Provider + Reason for Visit * Reason Comments Outpatient Testing Encounter Details Date Type Department Care Team (Late st Contact Info) Description 02/20/2024 1:40 PM EDT Laboratory Laboratory [facility] [place] [address] [place] [phone] Pod3, Specimen Drop Off [facility] [address] [place] [address] Iron deficiency anemia, unspecified iron deficiency anemia [...] yrs 11/16/2023,12/23/2022 Pneumococcal Conjugate Vacci ne, 20-valent ([id number]) 12/23/2022 Pneumococcal Polysaccharide PPV23 (Pneumovax) Seasonal Influenza, [...] Operating Room [facility] [address] [place] [phone] Cameron Molina, DO 21 [place] [address] 02/22/2024 12:50 PM EDT - 02/22/2024 1:35 PM EDT Surgery OR [facility], Operating Room [facility] [address] [place] [phone] Cameron Molina, 21 [place] [address] LEFT EXTRACAPSULAR CATARACT REMOVAL WITH INTRAOCULAR LENS 02/23/2024 9:15 AM EDT Office Visit Ophthalmology, [facility] [address] [place] [address] Cameron Molina, 07 [place] [address] 02/28/2024 10:00 AM EDT Office Visit General Internal Medicine [facility] [place] [address] [place] [address] Maritza Lyles MD 200 [facility] [place] [address] 03/01/2024 2:15 PM EDT Office Visit Ophthalmology, [facility] [address] [place] [address] Cameron Molina DO 61 [place] [address] 03/07/2024 1:05 PM EDT Hospital Encounter OR [facility], Operating Room [facility] [address] [place] [phone] Cameron Molina, DO 21 [place] [address] 03/07/2024 1:05 PM EDT - 03/07/2024 1:51 PM EDT Surgery OR [facility], Operating Room [facility] [place] [address] Cameron Molina, 21 [place] [address] RIGHT EXTRACAPSULAR CATARACT REMOVAL WITH INTRAOCULAR LENS 03/08/2024 8:45 AM EDT Office Visit Ophthalmology, [facility] 132 [facility] [place] [address] Cameron Molina DO 21 [place] [address] 03/30/2024 1:00 PM EDT Office Visit Hematology/Oncolog y [facility] [address] [facility] [address] Raquel Edmond, NICCI [address] [place] [address] [place] [address] 04/05/2024 3:45 PM EDT Office Visit Ophthalmology, [facility] 132 [facility] [place] [address] Cameron Molina DO 21 [place] [address] Scheduled Procedures Name Priority Associated Diagnoses Date/Ti [...] cataract documented in this encounter Care Teams Manager Of Financial Relationship Specialty Start Date End Date Maritza Lyles MD 200 [facility] [place] [address] PCP - General Internal Medicine 10/03/20 documented as of this encounter
--- OUTSIDE RECORDS SUMMARY | 2024-05-01 07:38 | External Medical Summary | Summary of Care ---
Author Name Unknown Organization [facility] Address [address] [facility] [place] [address] Phone [phone] Care Team Providers Care Sponsorship Manager Name Role Phone Maritza Lyles MD Primary Care Provider + Reason for Referral * Evaluate & Treat - Unlimited Visits (Within 10 days (routine)) - Authorized Specialty Diagnoses / Procedures Referred By Contac t Referred To Contact Hematology/Oncology / Hematology Oncology Diagnoses Iron deficiency anemia, unspecified iron deficiency anemia type Maritza Lyles MD 200 [facility] [place], [place] [address] Referral ID Status Reason Start Date Expiration Date Visits Requested Visits Authorized [id number] Authorized Specialty Services Required 02/16/[phone] Question Answer Referral Priority Within 10 days (routine) Where should this appointment be scheduled? [facility] Reason for Referral Anemia Comments Please eval for iron-deficiency anemia. Patient had upper and lower endoscopies done 2 years back. Clinically doing fine at this time. Order for Venofer is in the system in the meantime. Thanks Reason for Visit * Reason Onset Date Comments Abnormal Test Results 02/16/2024 Encounter Details Date Type Department Care Team (Late st Contact Info) Description 02/16/2024 Telephone General Internal Medicine [address] [place] [address] [place], [place] [address] Maritza Lyles MD 200 [facility] [place] [address] Abnormal Test Results Allergies No known active allergiesdocumented as of [...] yrs 11/16/2023,12/23/2022 Pneumococcal Conjugate Vacci ne, 20-valent ([id number]) 12/23/2022 Pneumococcal Polysaccharide PPV23 (Pneumovax) Seasonal Influenza, [...] encounter Miscellaneous Notes * Telephone Encounter - Kevin Yoo RN - 02/16/2024 10:40 AM EDT Scheduling- please call patient to schedule 2 hours apt "Venofer 09/22" (Dr. Maritza Lyles). Pt will need weekly infusions x 4. * Telephone Encounter - Maritza Lyles MD - 02/16/2024 10:32 AM EDT Signed. Thanks. * Telephone Encounter - Lazara Ralph RN - 02/16/2024 10:25 AM EDT Order received for venofer. [place] plan built and routed for signature. Prior auth not needed for venofer. Can send to scheduling once beacon is signed. * Telephone Encounter - Maritza Lyles MD - 02/16/2024 10:04 AM EDT Patient does have very low iron. I spoke with patient and her daughter in-law and explained everything. Patient needs to be seen by Hematology-Oncology for further evaluation. Need to do stool occult blood and if it is positive I would prefer upper and lower endoscopy. Last endoscopies 2 years back reviewed showed no significant sign of bleeding. Order is in for stool occult blood. I would also prefer starting Venofer injection. Order is in to get it in Hematology-Oncology department at [facility]. Patient appreciated the phone call. documented in this encounter Plan of Treatment Upcoming Encounters Date Type Department Care Team (Late st Contact Info) Description 02/16/2024 2:30 PM EDT Office Visit Ophthalmology, [facility] [address] [address] Cameron Molina, DO 21 [place] [address] 02/22/2024 1:05 PM EDT Hospital Encounter OR [facility], Operating Room [facility] 132 [place] [phone] Cameron Molina, 21 [place] [address] 02/22/2024 1:05 PM EDT - 02/22/2024 1:50 PM EDT Surgery OR [facility], Operating Room [facility] 132 [place] [phone] Cameron Molina, 21 [place] [address] LEFT EXTRACAPSULAR CATARACT REMOVAL WITH INTRAOCULAR LENS 02/23/2024 9:15 AM EDT Office Visit Ophthalmology, [facility] 132 [facility] [place] [address] Cameron Molina, DO 21 [place] [address] 02/28/2024 10:00 AM EDT Office Visit General Internal Medicine [facility] [address] [place] [address] Maritza Lyles MD [address] [place] [address] 03/01/2024 2:15 PM EDT Office Visit Ophthalmology, [facility] 132 [facility] [place] [address] Cameron Molina, DO 21 [place] [address] 03/07/2024 1:05 PM EDT Hospital Encounter OR [facility], Operating Room [facility] 132 [facility] [place] [phone] Cameron Molina, DO 21 [place] [address] 03/07/2024 1:05 PM EDT - 03/07/2024 1:51 PM EDT Surgery OR [facility], Operating Room [facility] 132 [facility] [place] [phone] Cameron Molina, DO [address] [address] RIGHT EXTRACAPSULAR CATARACT REMOVAL WITH INTRAOCULAR LENS 03/08/2024 8:45 AM EDT Office Visit Ophthalmology, [facility] 132 [facility] [place] [address] Cameron Molina, DO 21 [place] [address] 04/05/2024 3:45 PM EDT Office Visit Ophthalmology, [facility] 132 [facility] [place] [address] Cameron Molina, DO [address] [facility] [address] [place] [address] Scheduled Orders Name Type Priority Associated Diagnoses Orde r Schedule FECAL OCCULT BLOOD, EIA Lab Routine Iron deficiency anemia, unspecified iron deficiency anemia type Expected: 02/16/2024 (Approximate), Expires: 02/15/2025 Scheduled Procedures Name Priority Associated Diagnoses Date/Ti me EXTRACAPSULAR CATARACT REMOVAL WITH INTRAOCULAR LENS Combined forms of age-related cataract of both eyes 02/22/2024 1:05 PM EDT EXTRACAPSULAR CATARACT REMOVAL WITH INTRAOCULAR LENS Cataract 03/07/2024 1:05 PM EDT COLONOSCOPY FLEXIBLE PROXIMAL DIAGNOSTIC Recall Screen for colon cancer Scheduled Referrals Name Type Priority Associated Diagnoses Orde r Schedule HEMATOLOGY/ONCOLOGY REFERRAL OP Referral Within 10 days (routine) Iron deficiency anemia, unspecified iron deficiency anemia type Ordered: 02/16/2024 Health Maintenance Due Date Last Done Comments [...] Iron deficiency anemia, unspecified iron deficiency anemia type- Primary Combined forms of age-related cataract of both eyes Other and combined forms of senile cataract Cataract Unspecified cataract documented in this encounter Care Teams Sponsorship Manager Relationship Specialty Start Date End Date Maritza Lyles MD [address] [place], [place] [address] PCP - General Internal Medicine 10/03/20 documented as of this encounter
--- OUTSIDE RECORDS SUMMARY | 2024-05-01 07:38 | External Medical Summary | Summary of Care ---
Author Name Unknown Organization [facility] Address [address] [place] [facility] [place] [place] [address] Phone [phone] Care Team Providers Care Runner Worker Name Role Phone Maritza Lyles MD Primary Care Provider + Reason for Visit * Reason Comments Outpatient Testing Encounter Details Date Type Department Care Team (Late st Contact Info) Description 02/20/2024 1:40 PM EDT Laboratory Laboratory [facility] [place] [address] [place] [phone] Pod3, Specimen Drop Off [facility] [address] [place] [address] Iron deficiency anemia, unspecified iron deficiency anemia [...] yrs 11/16/2023,12/23/2022 Pneumococcal Conjugate Vacci ne, 20-valent ([id number]) 12/23/2022 Pneumococcal Polysaccharide PPV23 (Pneumovax) Seasonal Influenza, [...] Operating Room [facility] [address] [place] [phone] Cameron Molina, DO 21 [place] [address] 02/22/2024 12:50 PM EDT - 02/22/2024 1:35 PM EDT Surgery OR [facility], Operating Room [facility] [address] [place] [phone] Cameron Molina, 21 [place] [address] LEFT EXTRACAPSULAR CATARACT REMOVAL WITH INTRAOCULAR LENS 02/23/2024 9:15 AM EDT Office Visit Ophthalmology, [facility] [address] [place] [address] Cameron Molina, 38 [place] [address] 02/28/2024 10:00 AM EDT Office Visit General Internal Medicine [facility] [place] [address] [place] [address] Mraitza Lyles MD 200 [facility] [place] [address] 03/01/2024 2:15 PM EDT Office Visit Ophthalmology, [facility] [address] [place] [address] Cameron Molina DO 35 [place] [address] 03/07/2024 1:05 PM EDT Hospital Encounter OR [facility], Operating Room [facility] [address] [place] [address] Cameron Molina, DO 21 [place] [address] 03/07/2024 1:05 PM EDT - 03/07/2024 1:51 PM EDT Surgery OR [facility], Operating Room [facility] 132 [facility] [place] [address] Cameron Molina, 21 [place] [address] RIGHT EXTRACAPSULAR CATARACT REMOVAL WITH INTRAOCULAR LENS 03/08/2024 8:45 AM EDT Office Visit Ophthalmology, [facility] 132 [facility] [place] [address] Cameron Molina DO 21 [place] [address] 03/30/2024 1:00 PM EDT Office Visit Hematology/Oncolog y [facility] [address] [facility] [address] Raquel Edmond, NICCI [address] [place] [address] [place] [address] 04/05/2024 3:45 PM EDT Office Visit Ophthalmology, [facility] 132 [facility] [place] [address] Cameron Molina DO 21 [place] [address] Scheduled Procedures Name Priority Associated Diagnoses Date/Ti [...] cataract documented in this encounter Care Teams Runner Worker Relationship Specialty Start Date End Date Maritza Lyles MD 200 [facility] [place] [address] PCP - General Internal Medicine 10/03/20 documented as of this encounter
--- OUTSIDE RECORDS SUMMARY | 2024-05-01 07:38 | External Medical Summary | Summary of Care ---
Author Name Unknown Organization [facility] Address [address] [facility] [place] [address] Phone [phone] Care Team Providers Care Film Sorter Name Role Phone Maritza Lyles MD Primary Care Provider + Reason for Referral * Evaluate & Treat - Unlimited Visits (Within 10 days (routine)) - Authorized Specialty Diagnoses / Procedures Referred By Contac t Referred To Contact Hematology/Oncology / Hematology Oncology Diagnoses Iron deficiency anemia, unspecified iron deficiency anemia type Maritza Lyles MD 200 [facility] [place], [place] [address] Referral ID Status Reason Start Date Expiration Date Visits Requested Visits Authorized [id number] Authorized Specialty Services Required 02/16/2024 999 999 [...] 02/16/2024 Telephone General Internal Medicine [address] [place] [address] [place], [place] [address] Maritza Lyles MD 200 [facility] [place] [address] Abnormal Test Results Allergies No known active [...] yrs 11/16/2023,12/23/2022 Pneumococcal Conjugate Vacci ne, 20-valent ([id number]) 12/23/2022 Pneumococcal Polysaccharide PPV23 (Pneumovax) Seasonal Influenza, [...] Telephone Encounter - Maya Vasquez OSA - 02/16/2024 12:09 PM EDT Apt scheduled MyG message sent * Telephone Encounter - Kevin Yoo RN - 02/16/2024 10:40 AM EDT Scheduling- please call patient to schedule 2 hours apt "Venofer 09/22" (Dr. Maritza Lyles). Pt will need weekly infusions x 4. * Telephone Encounter - Maritza Lyles MD - 02/16/2024 10:32 AM EDT Signed. Thanks. * Telephone Encounter - Lazara Ralph RN - 02/16/2024 10:25 AM EDT Order received for venofer. [place] plan built and routed for signature. Prior [...] to get it in Hematology-Oncology department at [facility]. Patient appreciated the phone call. documented in this encounter Plan of Treatment Upcoming Encounters Date Type Department Care Team (Late st Contact Info) Description 02/16/2024 2:30 PM EDT Office Visit Ophthalmology, [facility] 132 [facility] [place] [address] Cameron Molina, DO 21 [facility] [place] [address] 02/22/2024 1:00 PM EDT Hem/Onc Treatment Hematology/Oncolog y Treatment, [place] 200 [facility] [phone] Jeanie, Chair 7 Hem Onc [facility] [address] 02/22/2024 1:05 PM EDT Hospital Encounter OR [facility], Operating Room [facility] [address] [place] [phone] Cameron Molina, DO 21 [place] [address] 02/22/2024 1:05 PM EDT - 02/22/2024 1:50 PM EDT Surgery OR [facility], Operating Room [facility] 132 [facility] [place] [phone] Cameron Molina, DO 21 [place] [address] LEFT EXTRACAPSULAR CATARACT REMOVAL WITH INTRAOCULAR LENS 02/23/2024 9:15 AM EDT Office Visit Ophthalmology, [facility] 132 [facility] [place] [address] Cameron Molina, DO 21 [place] [address] 02/28/2024 10:00 AM EDT Office Visit General Internal Medicine [facility] 200 [facility] [place] [address] Maritza Lyles MD 200 [place] [address] 03/01/2024 2:15 PM EDT Office Visit Ophthalmology, [facility] 132 [facility] [place] [address] Cameron Molina, DO 21 [place] [address] 03/07/2024 1:05 PM EDT Hospital Encounter OR [facility], Operating Room [facility] 132 [facility] [place] [phone] Cameron Molina, DO 21 [place] [address] 03/07/2024 1:05 PM EDT - 03/07/2024 1:51 PM EDT Surgery OR [facility], Operating Room [facility] 132 [facility] [place] [phone] Cameron Molina, DO 21 [place] [address] RIGHT EXTRACAPSULAR CATARACT REMOVAL WITH INTRAOCULAR LENS 03/08/2024 8:45 AM EDT Office Visit Ophthalmology, [facility] 132 [facility] [place] [address] Cameron Molina, DO 21 [place] [address] 04/05/2024 3:45 PM EDT Office Visit Ophthalmology, [facility] 132 [facility] [place] [address] Cameron Molina, 21 [place] [address] Scheduled Orders Name Type Priority Associated Diagnoses [...] cataract documented in this encounter Care Teams Film Sorter Relationship Specialty Start Date End Date Maritza Lyles MD 200 [facility] [place] [address] PCP - General Internal Medicine 10/03/20 documented as of this encounter
--- OUTSIDE RECORDS SUMMARY | 2024-05-01 07:38 | External Medical Summary | Summary of Care ---
Author Name Unknown Organization [facility] Address [address] [facility] [address] Phone [phone] Care Team Providers Care Manager Industrial Name Role Phone Maritza Lyles MD Primary Care Provider + Reason for Visit * Reason Onset Date Comments Test Results 02/29/2024 Encounter Details Date Type Department Care Team (Late st Contact Info) Description 02/29/2024 Telephone General Internal Medicine [facility] [place] 200 [facility] [place] [phone] Maritza Lyles MD 200 [place] [address] Test Results Allergies No known active allergiesdocumented as of this encounter (statuses as of 02/29/2024) Medications Medication Sig Dispensed Refills Start Date [...] as of this encounter (statuses as of 02/29/2024) Active Problems Problem Noted Date Diagnosed Date [...] as of this encounter (statuses as of 02/29/2024) Immunizations Name Administration Dates Next Due Hepatitis B, 20+ yrs 11/16/2023,12/23/2022 Pneumococcal Conjugate Vacci ne, 20-valent ([id number]) 12/23/2022 Pneumococcal Polysaccharide PPV23 (Pneumovax) Seasonal Influenza, [...] encounter Miscellaneous Notes * Telephone Encounter - Linda Logan LPN - 02/29/2024 9:23 AM EDT ----- Message from Maritza Lyles MD sent at 02/14/2024 11:17 AM EDT ----- See another encounter. Recent blood work shows drop in hemoglobin from 12 to 9.8. I have added few labs in the system but patient needs to stop by for stool occult blood. Need to start ferrous sulfate 325 mg with vitamin-C 1 a day and repeat CBCD in a month from now. If has any clinical symptoms need to let us know. Keep scheduled follow up appointment next month. documented in this encounter Plan of Treatment Upcoming Encounters Date Type Department Care Team (Late st Contact Info) Description 03/01/2024 11:30 AM EDT Hem/Onc Treatment Hematology/Oncolog y Treatment, [place] 200 [facility] [place] [phone] Jeanie, Chair 8 Hem Onc [address] [facility] [address] 03/07/2024 12:20 PM EDT Hospital Encounter OR [facility], Operating Room [facility] [address] [place] [phone] Cameron Molina, DO 21 [place] [address] 03/07/2024 12:20 PM EDT - 03/07/2024 1:06 PM EDT Surgery OR [facility], Operating Room [facility] [address] [place] [phone] Cameron Molina, 21 [place] [address] LEFT EXTRACAPSULAR CATARACT REMOVAL WITH INTRAOCULAR LENS 03/08/2024 8:45 AM EDT Office Visit Ophthalmology, [facility] 132 [facility] [place] [address] Cameron Molina, DO 21 [place] [address] 03/08/2024 1:30 PM EDT Hem/Onc Treatment Hematology/Oncolog y Treatment, [place] 200 [facility] [phone] Jeanie, Chair 4 Hem Onc [address] 200 [facility] [place] [address] 03/15/2024 1:00 PM EDT Hem/Onc Treatment Hematology/Oncolog y Treatment, [place] 200 [facility] [phone] Jeanie, Chair 10 Hem Onc [address] 200 [facility] [place] [address] 03/30/2024 1:00 PM EDT Office Visit Hematology/Oncolog y [facility] 200 [facility] [place] [phone] Raquel Edmond, SPORTS COORDINATOR [address] [place] [address] [place] [address] 04/04/2024 1:00 PM EDT Hospital Encounter OR [facility], Operating Room [facility] 132 [facility] [place] [phone] Cameron Molina, DO 21 [place] [address] 04/04/2024 1:00 PM EDT - 04/04/2024 1:46 PM EDT Surgery OR [facility], Operating Room [facility] [address] [place] [phone] Cameron Molina, DO 21 [place] [address] RIGHT EXTRACAPSULAR CATARACT REMOVAL WITH INTRAOCULAR LENS 04/05/2024 9:00 AM EDT Office Visit [address]hthalmology[address] [place] [address] Cameron Molina, DO 21 [place] [address] 04/12/2024 9:30 AM EDT [address] [address] Cameron Molina, DO 21 [place] [address] 05/03/2024 3:45 PM EDT Office [address] [address] Cameron Molina, DO 21 [place] [address] Scheduled Procedures Name Priority Associated Diagnoses Date/Ti me EXTRACAPSULAR CATARACT REMOVAL WITH INTRAOCULAR LENS Cataract 03/07/2024 12:20 PM EDT EXTRACAPSULAR CATARACT REMOVAL WITH [...] Discussed due to patient's condition Care Teams Manager Industrial Relationship Specialty Start Date End Date Maritza Lyles MD [address] [place] [address] [place] [address] PCP - General Internal Medicine 10/03/20 documented as of this encounter
--- OUTSIDE RECORDS SUMMARY | 2024-05-01 07:39 | External Medical Summary | Summary of Care ---
Author Name Unknown Organization [facility] Address [address] [facility] [place] [place] [address] Phone [phone] Care Team Providers Care Underwear Finisher Name Role Phone Maritza Lyles MD Primary Care Provider + Reason for Visit * Reason Comments Outpatient Testing Encounter Details Date Type Department Care Team (Late st Contact Info) Description 02/14/2024 9:30 AM EDT Laboratory [facility] [place] [address] [place] [address] S[place], Lab Scenery [address] [place] [address] Iron deficiency anemia, unspecified iron deficiency anemia type*; Type 2 diabetes mellitus with hemoglobin A1c goal of less than 7.0% (HCC); Hyperlipidemia with target LDL less than 100; Sensation of cold in lower extremity; Leukocytosis, unspecified type Allergies No known active allergiesdocumented as of this encounter (statuses as of 02/14/2024) Medications Medication Sig Dispensed Refills Start Date End Date Status Aspirin 81 MG Oral Capsule TAKE 1 TABLET BY MOUTH EVERY DAY 05/23/2021 Active metFORMIN HCl 500 MG Oral Tablet (Glucophage)Indicati ons:Type 2 diabetes mellitus with hemoglobin A1c goal of less than 7.0% (HCC) Take 2 Tablets by mouth 2 times a day with morning and evening meals. 360 Tablet 3 11/16/2022 Active Furosemide 20 MG Oral Tablet (Lasix) Take 1 Tablet by mouth in the morning. 90 Tablet 3 02/17/2023 Active Omeprazole 40 MG Oral Capsule Delayed Release (PriLOSEC)Indication s:Gastroesophageal reflux disease without esophagitis TAKE 1 CAPSULE BY MOUTH IN THE MORNING AND BEFORE BEDTIME 180 Capsule 1 11/28/2023 Active Losartan Potassium 50 MG Oral Tablet (Cozaar)Indications: HTN, goal below 130/80 TAKE 1 TABLET BY MOUTH EVERY DAY IN THE MORNING 90 Tablet 1 11/28/2023 Active Metoprolol Succinate ER 25 MG Oral Tablet Extended Release 24 Hour (toPROL XL) Take 1 Tablet by mouth in the morning. 90 Tablet 3 01/11/2024 Active Atorvastatin Calcium 80 MG Oral Tablet (Lipitor)Indications :Type 2 diabetes mellitus with hemoglobin A1c goal of less than 7.0% (HCC) TAKE 1 TABLET BY MOUTH EVERY DAY IN THE MORNING 90 Tablet 3 02/09/2024 Active documented as of this encounter (statuses as of 02/14/2024) Active Problems Problem Noted Date Diagnosed Date Combined forms of age-related cataract of both e yes 01/05/2024 Stress-induced cardiomyopathy 05/10/2023 Type 2 diabetes mellitus wit h hemoglobin A1c goal of less than 7.0% 11/02/2021 Hyperlipidemia with target LDL less than 100 HTN, goal below 130/80 11/02/2021 Gastroesophageal reflux disease without esophagi tis 11/02/2021 NEELAM (generalized anxiety disorder) 08/20/2021 documented as of this encounter (statuses as of 02/14/2024) Immunizations Name Administration Dates Next Due Hepatitis B, 20+ yrs 11/16/2023,12/23/2022 Pneumococcal Conjugate Vacci ne, 20-valent ([id number]) 12/23/2022 Pneumococcal Polysaccharide PPV23 (Pneumovax) Seasonal Influenza, [...] as of this encounter Progress Notes * Maritza Lyles MD - 02/14/2024 11:12 AM EDT Patient does have drop in the hemoglobin. She had colonoscopy and upper endoscopy done 2 years back. Please call her and find out how she is doing clinically. She can start taking ferrous sulfate 325mg 1 pill every other day and I have added few more labs to the blood which is already drawn. If she can stop by any day and give us a stool specimen to check if there is any blood. Repeat CBCD in month from now and let us know if any change clinically. Please keep scheduled follow-up with me next month. documented in this encounter Miscellaneous Notes * Addendum Note - Maritza Lyles MD - 02/14/2024 11:15 AM EDTAddended by: MARITZA LYLES on: 02/14/2024 11:15 AM Modules accepted: Orders documented in this encounter Plan of Treatment Upcoming Encounters Date Type Department Care Team (Late st Contact Info) Description 02/16/2024 2:30 PM EDT Office Visit Ophthalmology, [facility] [address] [place] [address] Cameron Molina DO [address] [place] [id number] 02/22/2024 1:05 PM EDT Hospital Encounter OR [facility], Operating Room [facility] [address] [place] [phone] Cameron Molina DO [address] [place] [address] 02/22/2024 1:05 PM EDT - 02/22/2024 1:50 PM EDT Surgery OR [facility], Operating Room [facility] [address] [place] [phone] Cameron Molina, DO [address] [place] [phone] LEFT EXTRACAPSULAR CATARACT REMOVAL WITH INTRAOCULAR LENS 02/23/2024 9:15 AM EDT Office Visit Ophthalmology, [facility] [address] [place] [address] Cameron Molina, DO [address] [place] [address] 02/28/2024 10:00 AM EDT Office Visit General Internal Medicine [facility] [address] [facility] [place] [address] Maritza Lyles MD [address] [place] [address] 03/01/2024 2:15 PM EDT Office Visit Ophthalmology, [facility] [address] [place] [address] Cameron Molina, [address] [place] [address] 03/07/2024 1:05 PM EDT Hospital Encounter OR [facility], Operating Room [facility] [address] [place] [phone] Cameron Molina, [address] [place] [address] 03/07/2024 1:05 PM EDT - 03/07/2024 1:51 PM EDT Surgery OR [facility], Operating Room [facility] [address] [place] [phone] Cameron Molina, DO [address] [place] [address] RIGHT EXTRACAPSULAR CATARACT REMOVAL WITH INTRAOCULAR LENS 03/08/2024 8:45 AM EDT Office Visit Ophthalmology, [facility] 132 [facility] [place] [address] Cameron Molina, DO [address] [place] [id number] 04/05/2024 3:45 PM EDT Office Visit Ophthalmology, [facility] 132 [facility] [place] [address] Cameron Molina, DO [address] [place] [phone] Pending Results Name Type Priority Associated Diagnoses Date /Time HEMOGLOBIN A1C Lab Routine Type 2 diabetes mellitus with hemoglobin A1c goal of less than 7.0% ([facility]) 02/14/2024 9:31 AM EDT LIPID PANEL WITH DIRECT LDL IF TG IS HIGH Lab Routine Hyperlipidemia with target LDL less than 100 02/14/2024 9:31 AM EDT COMPREHENSIVE METABOLIC PANEL Lab Routine Type 2 diabetes mellitus with hemoglobin A1c goal of less than 7.0% ([facility]) 02/14/2024 9:31 AM EDT Scheduled Orders Name Type Priority Associated Diagnoses Orde r Schedule VITAMIN B12 Lab Routine Iron deficiency anemia, unspecified iron deficiency anemia type Expected: 02/14/2024 (Approximate), Expires: 02/13/2025 FERRITIN Lab Routine Iron deficiency anemia, unspecified iron deficiency anemia type Expected: 02/14/2024 (Approximate), Expires: 02/13/2025 IRON SCREEN, INCLUDING TIBC Lab Routine Iron deficiency anemia, unspecified iron deficiency anemia type Expected: 02/14/2024 (Approximate), Expires: 02/13/2025 FECAL OCCULT BLOOD, EIA Lab Routine Iron deficiency anemia, unspecified iron deficiency anemia type Expected: 02/14/2024 (Approximate), Expires: 02/13/2025 Scheduled Procedures Name Priority Associated Diagnoses Date/Ti [...] 10/04/2023 023, 11/03/2021, 09/09/2020, Additional history exists HbA1c 12/28/2023 06/28/2023, 09/19, 05/04/2022, Additional history exists Mammogram 12/30/2023 12/29/2022, 12/29/2022 Hepatitis B (3 of 3 - 19+ 3-dose series) 01/11/2024 11/16/2023, 12/23/2022 GFR 06/28/2024 06/28/2023, 11/18, 10/04/2022, Additional history exists Diabetic Foot Exam 08/24/2024 08/24/2023, 11/03/2021 Diabetic Eye Exam 01/04/2025 01/05/2024, , 01/05/2024, Additional history exists Lipid Panel 06/28/2028 06/28/2023, 09/19, 05/04/2022, Additional history exists Colonoscopy 10/08/2030 10/08/2020, 10/08/2020 [...] Date/Time Associated Diagnosis Comments DIFFERENTIAL, AUTOMATED Routine 02/14/2024 9:31 AM EDT Sensation of cold in lower extremity Leukocytosis, unspecified type CBC Routine 02/14/2024 9:31 AM EDT Sensation of cold in lower extremity Leukocytosis, unspecified type CBC Routine 02/14/2024 9:31 AM EDT Sensation of cold in lower extremity Leukocytosis, unspecified type documented in this encounter Results * DIFFERENTIAL, AUTOMATED (02/14/2024 9:31 AM EDT) WBC 10.62 4.00 - 10.80 K/uL 02/14/2024 9:54 AM EDT [facility]02 Neutrophils % 49.2 40.0 - 75.0 % 02/14/2024 9:54 AM EDT [facility] 56[facility]02 Lymphocytes % 38.9 18.0 - 42.0 % 02/14/2024 9:54 AM EDT [facility] 56[facility]02 Monocytes % 8.9 1.0 - 11.0 % 02/14/2024 9:54 AM EDT [facility] 56[facility]02 Eosinophils % 2.5 0.0 - 6.0 % 02/14/2024 9:54 AM EDT [facility] 56[facility]02 Basophils % 0.5 0.0 - 2.0 % 02/14/2024 9:54 AM EDT [facility]02 Absolute Neutrophils 5.23 1.80 - 7.70 K/uL 02/14/2024 9:54 AM EDT [facility]02 Absolute Lymphocytes 4.13 1.00 - 4.80 K/ul 02/14/2024 9:54 AM EDT [facility] Absolute Monocytes 0.94 0.00 - 1.10 K/uL 02/14/2024 9:54 AM EDT [facility] Absolute Eosinophils 0.27 0.00 - 0.70 K/uL 02/14/2024 9:54 AM EDT [facility] Absolute Basophils 0.05 0.00 - 0.20 K/uL 02/14/2024 9:54 AM EDT [facility] Blood Venous blood specimen / Unknown Venipuncture / Unknown 02/14/2024 9:31 AM EDT 02/14/2024 9:31 AM EDT Milady Machado MD LAB BLOOD ORDERABLES [facility] [address] [place] [address] * (ABNORMAL) CBC (02/14/2024 9:31 AM EDT) WBC 10.62 4.00 - 10.80 K/uL 02/14/2024 9:54 AM EDT [facility] RBC 4.51 3.85 - 5.15 M/uL 02/14/2024 9:54 AM EDT [facility] HGB 9.8(L) 12.0 - 15.3 g/dL 02/14/2024 9:54 AM T [facility] HCT 33.7(L) 36.0 - 45.2 % 02/14/2024 9:54 AM EDT [facility] MCV 74.7 81.5 - 97.5 fL 02/14/2024 9:54 AM EDT [facility] MCH 21.7 27.0 - 34.0 pg 02/14/2024 9:54 AM EDT [facility] MCHC 29.1 32.0 - 36.0 g/dL 02/14/2024 9:54 AM EDT [facility] RDW 16.4 11.5 - 15.5 % 02/14/2024 9:54 AM EDT [facility] PLT 404(H) 140 - 400 K/uL 02/14/2024 9:54 AM EDT [facility] MPV 10.6 6.6 - 11.1 fL 02/14/2024 9:54 AM EDT [facility] Blood Venous blood specimen / Unknown Venipuncture / Unknown 02/14/2024 9:31 AM EDT 02/14/2024 9:31 AM EDT Milady Machado MD LAB BLOOD ORDERABLES [facility] 200 [facility] [address] [place] [address] documented in this encounter Visit Diagnoses Diagnosis Combined forms of age-related cataract of both eyes- Primary Other and combined forms of senile cataract Iron deficiency anemia, unspecified iron deficiency anemia type- Primary Type 2 diabetes mellitus with hemoglobin A1c goal of less than 7.0% (HCC) Hyperlipidemia with target LDL less than 100 Other and unspecified hyperlipidemia Sensation of cold in lower extremity Leukocytosis, unspecified type Combined forms of age-related cataract of both eyes Other and combined forms of senile cataract Cataract Unspecified cataract documented in this encounter Care Teams Underwear Finisher Relationship Specialty Start Date End Date [facility]itza L[facility] [address] [facility] [address] PCP - General Internal Medicine 10/03/20 documented as of this encounter
--- OUTSIDE RECORDS SUMMARY | 2024-05-01 07:39 | External Medical Summary ---
Author Name Unknown Address Unknown Organization K01:[facility] [place] - [address] [place] [address] Laboratory Report Ordering Provider Test Date Status HORTENCIA AWAN 02/14/2024 09:31:13 Final Observation Date Value Abnormality Reference (Units ) Status Ferritin 02/14/2024 09:31:13 7 Below low normal 13- 150 (ng/mL) Final Postmenopausal women have hi gher ferritin levels than pre-menopausal women. The above reference interval is based on pre-menopausal women. Performing Location [facility] - [address] [place] [address]
--- OUTSIDE RECORDS SUMMARY | 2024-05-01 07:39 | External Medical Summary ---
Author Name Unknown Address Unknown Organization K09:[facility] [address] [place] [address] Laboratory Report Ordering Provider Test Date Status HORTENCIA AWAN 02/14/2024 09:31:13 Final Observation Date Value Abnormality Reference (Units ) Status BUN 02/14/2024 09:31:13 14 6-20 (mg/dL) Final Creatinine 02/14/2024 09:31:13 0.7 0.5-1.0 (mg/dL) Final Glomerular filtration rate/1.73 sq M.predicted [Volume Rate/Area] in Serum, Plasma or Blood by Creatinine-based formula (CKD-EPI) 02/14/2024 09:31:13 >90 >=60 (mL/min) Final eGFR is calculated based on the CKD-EPI 2020 equation Sodium 02/14/2024 09:31:13 139 135-146 (m mol/L) Final Potassium 02/14/2024 09:31:13 5.0 3.5-5.1 (m mol/L) Final Cl 02/14/2024 09:31:13 100 98-107 (mm ol/L) Final CO2 02/14/2024 09:31:13 28 22-32 (mmo l/L) Final Anion gap 02/14/2024 09:31:13 11 7-15 (mmol /L) Final Glucose 02/14/2024 09:31:13 115 70-120 (mg /dL) Final Albumin 02/14/2024 09:31:13 4.2 3.8-5.0 (g /dL) Final AST (Aspartate aminotransferase) 02/14/2024 09:31:13 24 10-35 (U/L) Final Alk Phos 02/14/2024 09:31:13 116 35-130 (U/ L) Final Bilirubin, Total 02/14/2024 09:31:13 0.2 <=1 .2 (mg/dL) Final Calcium 02/14/2024 09:31:13 10.0 8.4-10.2 ( mg/dL) Final Protein 02/14/2024 09:31:13 7.2 6.0-8.3 (g /dL) Final ALT (Alanine aminotransferase) 02/14/2024 09:31:13 24 10-35 (U/L) Final Performing Location [facility] [address] [place] [address]
--- OUTSIDE RECORDS SUMMARY | 2024-05-01 07:39 | External Medical Summary ---
Author Name Unknown Address Unknown Organization K01:[facility] [place] [address] [place] [address] Laboratory Report Ordering Provider Test Date Status HORTENCIA AWAN 02/14/2024 09:31:13 Final Observation Date Value Abnormality Reference (Units ) Status Iron 02/14/2024 09:31:13 18 Below low normal 33-151 (ug/dL) Final Iron-binding capacity 02/14/2024 09:31:13 451 Above high normal 250-425 (ug/dL) Final Transferrin Sat % 02/14/2024 09:31:13 4 Below low normal 15-55 (%) Final Performing Location [facility] - [address] [place] [address]
--- OUTSIDE RECORDS SUMMARY | 2024-05-01 07:39 | External Medical Summary ---
Author Name Unknown Address Unknown Organization K09:[facility] [place] [address] Laboratory Report Ordering Provider Test Date Status BJORN WING 02/14/2024 09:31:13 Final Observation Date Value Abnormality Reference (Units ) Status WBC, Total 02/14/2024 09:31:13 10.62 4.00-10.8 0 (K/uL) Final RBC 02/14/2024 09:31:13 4.51 3.85-5.15 (M/uL) Final Hemoglobin 02/14/2024 09:31:13 9.8 Below low normal 12 .0-15.3 (g/dL) Final HCT 02/14/2024 09:31:13 33.7 Below low normal 36. 0-45.2 (%) Final MCV 02/14/2024 09:31:13 74.7 81.5-97.5 (fL) Final MCH 02/14/2024 09:31:13 21.7 27.0-34.0 (pg) Final MCHC 02/14/2024 09:31:13 29.1 32.0-36.0 (g/dL) Final RDW 02/14/2024 09:31:13 16.4 11.5-15.5 (%) Final Platelets 02/14/2024 09:31:13 404 Above high normal 14 0-400 (K/uL) Final MPV 02/14/2024 09:31:13 10.6 6.6-11.1 ( fL) Final Performing Location [facility] [place] [address]
--- OUTSIDE RECORDS SUMMARY | 2024-05-01 07:39 | External Medical Summary | Summary of Care ---
Author Name Unknown Organization [facility] Address [address] [place] [address] Phone [phone] Care Team Providers Care Web Services Architect Name Role Phone Lv Lyles MD Primary Care Provider + Reason for Visit * Reason Comments eRx-Medication Refill Encounter Details Date Type Department Care Team (Late st Contact Info) Description 02/09/2024 Refill General Internal Medicine [facility] 200 [facility] [place] [address] Lv Lyles MD 200 [place] [address] Type 2 diabetes mellitus with hemoglobin A1c goal of less than 7.0% (HCC) Allergies No known active allergiesdocumented as of this encounter (statuses as of 02/09/2024) Medications Medication Sig Dispensed Refills Start Date End Date Status Aspirin 81 MG Oral Capsule TAKE 1 TABLET BY MOUTH EVERY DAY 05/23/2021 Active metFORMIN HCl 500 MG Oral Tablet (Glucophage)Indic [...] Active Losartan Potassium 50 MG Oral Tablet (Cozaar)Indicatio ns:HTN, goal below 130/80 TAKE 1 TABLET BY MOUTH EVERY DAY IN THE MORNING 90 Tablet 1 11/28/2023 Active Metoprolol Succinate ER 25 MG Oral Tablet Extended Release 24 Hour (toPROL XL) Take 1 Tablet by mouth in the morning. 90 Tablet 3 01/11/2024 Active Atorvastatin Calcium 80 MG Oral Tablet (Lipitor)Indicati ons:Type 2 diabetes mellitus with hemoglobin A1c goal of less than 7.0% (HCC) TAKE 1 TABLET BY MOUTH EVERY DAY IN THE MORNING 90 Tablet 3 02/09/2024 Active Atorvastatin Calcium 80 MG Oral Tablet (Lipitor)Indicati ons:Type 2 diabetes mellitus with hemoglobin A1c goal of less than 7.0% (HCC) Take 1 Tablet by mouth in the morning. 90 Tablet 3 02/17/2023 Discontinued documented as of this encounter (statuses as of 02/09/2024) Active Problems Problem Noted Date Diagnosed Date [...] as of this encounter (statuses as of 02/09/2024) Immunizations Name Administration Dates Next Due Hepatitis B, 20+ yrs 11/16/2023,12/23/2022 Pneumococcal Conjugate Vacci ne, 20-valent ([id number]) 12/23/2022 Pneumococcal Polysaccharide PPV23 (Pneumovax) Seasonal Influenza, [...] encounter Miscellaneous Notes * Telephone Encounter - Broderick Martinez [facility] - 02/09/2024 3:42 PM EDTSigned Prescriptions: Disp Refills Atorvastatin Calcium 80 MG Oral Tablet (Li*90 Tab*3 Sig: TAKE 1 TABLET BY MOUTH EVERY DAY IN THE MORNINGAuthorizing Provider: LV LYLES User: BRODERICK MARTINEZ documented in this encounter Plan of Treatment Upcoming Encounters Date Type Department Care Team (Late st Contact Info) Description 02/09/2024 6:00 PM EDT Office Visit Family Practice [facility] [address] [place] [address] Angelika Mena PA-C [address] [place] [address] 02/16/2024 2:30 PM EDT Office Visit Ophthalmology, [facility] [address] [place] [address] Cameron Molina DO [address] [place] [address] 02/22/2024 1:05 PM EDT Hospital Encounter OR [facility], Operating Room [facility] [address] [place] [phone] Cameron Molina, DO [address] [place] [address] 02/22/2024 1:05 PM EDT - 02/22/2024 1:50 PM EDT Surgery OR [facility], Operating Room [facility] 132 [facility] [place] [phone] Cameron Molina, DO [address] [place] [place] [phone] LEFT EXTRACAPSULAR CATARACT REMOVAL WITH INTRAOCULAR LENS 02/23/2024 9:15 AM EDT Office Visit Ophthalmology, [facility] 132 [facility] [place] [address] Cameron Molina, DO [address] [place] [address] 02/28/2024 10:00 AM EDT Office Visit General Internal Medicine [facility] 200 [facility] [place], [place] [address] Lv Lyles MD 200 [place] [address] 03/01/2024 2:15 PM EDT Office Visit Ophthalmology, [facility] 132 [facility] [place] [address] Cameron Molina, DO [address] [place] [id number] 03/07/2024 1:05 PM EDT Hospital Encounter OR [facility], Operating Room [facility] [address] [facility] [place] [phone] Cameron Molina, DO [address] [place] [phone] 03/07/2024 1:05 PM EDT - 03/07/2024 1:51 PM EDT Surgery OR [facility], Operating Room [facility] [address] [facility] [place] [phone] Cameron Molina, DO [address] [place] [address] RIGHT EXTRACAPSULAR CATARACT REMOVAL WITH INTRAOCULAR LENS 03/08/2024 8:45 AM EDT Office Visit Ophthalmology, [facility] 132 [facility] [place] [address] Cameron Molina, DO [address] [place] [address] 04/05/2024 3:45 PM EDT Office Visit Ophthalmology, [facility] 132 [facility] [place] [address] Cameron Molina, DO [address] [place] [place] [phone] Scheduled Procedures Name Priority Associated Diagnoses Date/Ti [...] series) 01/11/2024 11/16/2023, 12/23/2022 GFR 06/28/2024 06/28/2023, 03/05/2023, 10/04/2022, Additional history exists Diabetic Foot Exam [...] Other and combined forms of senile cataract Type 2 diabetes mellitus with hemoglobin A1c goal of less than 7.0% (HCC) Combined forms of age-related cataract of both eyes Other and combined forms of senile cataract Cataract Unspecified cataract documented in this encounter Care Teams Web Services Architect Relationship Specialty Start Date End Date Lv Lyles MD [address] [place], [place] [address] PCP - General Internal Medicine 10/03/20 documented as of this encounter
--- OUTSIDE RECORDS SUMMARY | 2024-05-01 07:39 | External Medical Summary ---
Author Name Unknown Address Unknown Organization K09:[facility] [address] [address] Laboratory Report Ordering Provider Test Date Status BJORN WING 02/14/2024 09:31:13 Final Observation Date Value Abnormality Reference (Units ) Status SYNC LEUKOCYTES IN BLOOD BY AUTOMATED COUNT 02/14/2024 09:31:13 10.62 4.00-10.80 (K/uL) Final Segs 02/14/2024 09:31:13 49.2 40.0-75.0 (%) Final Lymphs % 02/14/2024 09:31:13 38.9 18.0-42.0 (%) Final Monos 02/14/2024 09:31:13 8.9 1.0-11.0 (%) Final Eosinophils 02/14/2024 09:31:13 2.5 0.0-6.0 (%) Final Basos 02/14/2024 09:31:13 0.5 0.0-2.0 (%) Final Absolute Segs 02/14/2024 09:31:13 5.23 1.80-7.70 (K/uL) Final Lymphs, absolute 02/14/2024 09:31:13 4.13 1.00-4.80 (K/ul) Final Monos, Abs 02/14/2024 09:31:13 0.94 0.00-1.10 (K/uL) Final Eos, Abs 02/14/2024 09:31:13 0.27 0.00-0.70 (K/uL) Final Basos, Abs 02/14/2024 09:31:13 0.05 0.00-0.20 (K/uL) Final Performing Location [facility] [address] [address]
--- OUTSIDE RECORDS SUMMARY | 2024-05-01 07:39 | External Medical Summary ---
Author Name Unknown Address Unknown Organization K01:[facility]AT[facility] [place] - [address] [place] [address] Laboratory Report Ordering Provider Test Date Status HORTENCIA AWAN 02/14/2024 09:31:13 Final Observation Date Value Abnormality Reference (Units ) Status HbA1C 02/14/2024 09:31:13 7.0 Above high normal 4. 0-5.6 (%) Final The use of HbA1c to monitor glycemic status is based on normal hemoglobin and HbA composition. This test should not be used in patients with abnormal hemoglobin that affects the half life of the red blood cell or the in vivo glycation rates. Glucose, estimated average 02/14/2024 09:31:13 154 Above high normal <126 (mg/dL) Ray dickey Performing Location [facility] - [address] [place] [address]
--- OUTSIDE RECORDS SUMMARY | 2024-05-01 07:39 | External Medical Summary | Summary of Care ---
Author Name Unknown Organization [facility] Address [address] [facility] [address] Phone [phone] Care Team Providers Care Animal Laboratory Helper Name Role Phone Maritza Lyles MD Primary Care Provider + Encounter Details Date Type Department Care Team (Late st Contact Info) Description 01/17/2024 Telephone OphthalmologyTrini [address] [address] [place] DO [facility] [place] [address] Allergies No known active allergiesdocumented as of this encounter (statuses as of 01/17/2024) Medications Medication Sig Dispensed Refills Start Date End Date Status Aspirin 81 MG Oral Capsule TAKE 1 TABLET BY MOUTH EVERY DAY 0 05/23/2021 Active metFORMIN HCl 500 MG Oral Tablet (Glucophage)Indicati ons:Type 2 diabetes mellitus with hemoglobin A1c goal of less than 7.0% (HCC) Take 2 Tablets by mouth 2 times a day with morning and evening meals. 360 Tablet 3 11/16/2022 Active Furosemide 20 MG Oral Tablet (Lasix) Take 1 Tablet by mouth in the morning. 90 Tablet 3 02/17/2023 Active Atorvastatin Calcium 80 MG Oral Tablet [...] the morning. 90 Tablet 3 01/11/2024 Active documented as of this encounter (statuses as of 01/17/2024) Active Problems Problem Noted Date Diagnosed Date [...] as of this encounter (statuses as of 01/17/2024) Immunizations Name Administration Dates Next Due Hepatitis B, 20+ yrs 11/16/2023,12/23/2022 Pneumococcal Conjugate Vacci ne, 20-valent ([id number]) 12/23/2022 Pneumococcal Polysaccharide PPV23 (Pneumovax) Seasonal Influenza, [...] Miscellaneous Notes * Telephone Encounter - Jackie Monk, ARNAV - 01/17/2024 1:52 PM EDT Pt daughter called to get cataract surgery scheduled. OSS 02/21 and 03/07, IOL/AMY and H&P appointments made while on the phone. ARNAV Recinos 01/17/2024 1:53 PM documented in this encounter Plan of Treatment Upcoming Encounters Date Type Department Care Team (Late st Contact Info) Description 02/09/2024 6:00 PM EDT Office Visit Family Practice [facility] 200 [facility] [place] [address] Angelika Mena PA-C [address] [facility] [place] [address] 02/16/2024 2:30 PM EDT Office Visit Ophthalmology, [facility] 132 [facility] [place] [address] [place]ina, DO [address] [place] [place] [address] 02/22/2024 Hospital Encounter OR OSS, Operating Room OSS [address] [place] [phone] [place]ina, 21 [place] [address] 02/23/2024 9:15 AM EDT Office Visit Ophthalmology [facility] [address] [place] [address] [place]ina, 50 [place] [address] 02/28/2024 10:00 AM EDT Office Visit General Internal Medicine [facility] [address] [place] [address] Maritza Lyles MD [address] [place] [address] 03/01/2024 2:15 PM EDT Office Visit Ophthalmology, [facility] [address] [place], DO [address] [place] [place] [address] 03/07/2024 Hospital Encounter OR [facility], Operating Room [facility] 132 [facility] [place] [phone] [place]ina, DO [address] [place] [place] [address] 03/08/2024 8:45 AM EDT Office Visit Ophthalmology, [facility] 132 [facility] [place] [address] [place]ina, DO [address] [place] [place] [address] 04/05/2024 3:45 PM EDT Office Visit [facility], [facility] 132 [facility] [address] [place], DO [address] [place] [place] [address] Scheduled Procedures Name Priority Associated Diagnoses Date/Ti me EXTRACAPSULAR CATARACT REMOV AL WITH INTRAOCULAR LENS Combined forms of age-related cataract of both eyes EXTRACAPSULAR CATARACT REMOV AL WITH INTRAOCULAR LENS Cataract COLONOSCOPY FLEXIBLE PROXIMA L DIAGNOSTIC Recall Screen for colon cancer Health [...] filedocumented as of this encounter Care Teams Animal Laboratory Helper Relationship Specialty Start Date End Date Mairtza Lyles MD [address] [place] [address] [place] [address] PCP - General Internal Medicine 10/03/20 documented as of this encounter
--- OUTSIDE RECORDS SUMMARY | 2024-05-01 07:39 | External Medical Summary | Summary of Care ---
Author Name Unknown Organization [facility] Address [address] [facility] [place] [address] Phone [phone] Care Team Providers Care Painter And Decorator Apprentice Name Role Phone Maritza Lyles MD Primary Care Provider + Reason for Visit * Reason Comments pre-op exam Encounter Details Date Type Department Care Team (Latest Contact Info) Description 02/09/2024 6:00 PM EDT Office Visit Family Practice [facility] [place] 200 [facility] [place] [address] Angelika Mena PA-C 200 [facility] [place] [address] Age-related cataract of both eyes, unspecified age-related cataract type*; Type 2 diabetes mellitus with hemoglobin A1c goal of less than 7.0% (HCC); Hyperlipidemia with target LDL less than 100; HTN, goal below 130/80; Gastroesophageal reflux disease without esophagitis; NEELAM (generalized anxiety disorder); Stress-induced cardiomyopathy Allergies No known active allergiesdocumented as of [...] yrs 11/16/2023,12/23/2022 Pneumococcal Conjugate Vacci ne, 20-valent ([id number]) 12/23/2022 Pneumococcal Polysaccharide PPV23 (Pneumovax) Seasonal Influenza, [...] Reading Time Taken Comments Blood Pressure 120/64 02/09/2024 6:04 PM EDT Pulse 89 02/09/2024 6:04 PM EDT Temperature 36.7 C (98.1 F) 02/09/2024 6:04 PM ED T Respiratory Rate 16 02/09/2024 6:04 PM EDT Oxygen Saturation 97% 02/09/2024 6:04 PM EDT Inhaled Oxygen Concentration - - Weight 84.4 kg (186 lb) 02/09/2024 6:04 PM EDT Height 156.2 cm (5' 1.5") 02/09/2024 6:04 PM EDT Body Mass Index 34.58 02/09/2024 6:04 PM EDT documented in this encounter Progress Notes * Angelika Mena PA-C - 02/09/2024 6:26 PM EDT Subjective: Taj Laura is a 58 year old female. Presents at the request of Dr Molina for medical clearance for cataract removal. PHM: Patient Active Problem List Diagnosis NEELAM (generalized anxiety disorder) Type 2 diabetes mellitus with hemoglobin A1c goal of less than 7.0% (HCC) Hyperlipidemia with target LDL less than 100 HTN, goal below 130/80 Gastroesophageal reflux disease without esophagitis Stress-induced cardiomyopathy Combined forms of age-related cataract of both eyes Current Outpatient Medications Medication Sig Dispense Refill [...] facility-administered medications for this visit. Past Medical History: Diagnosis Date Coronary artery disease involving nenana coronary artery of nenana heart without angina pectoris NEELAM (generalized anxiety disorder) Gastroesophageal reflux disease without esophagitis Hyperlipidemia LDL goal <100 Primary hypertension Type 2 diabetes mellitus without complication, without long-term current use of insulin (HCC) Past Surgical History: Procedure Laterality Date COLONOSCOPY, DIAGNOSTIC (RECTUM) 10/08/2020 normal, repeat 10 yrs / COLONOSCOPY FLEXIBLE PROXIMAL DIAGNOSTIC performed by Khushi Interiano MD at ENDOSCOPY [facility] EGD, FLEXIBLE, DIAGNOSTIC 08/03/2021 duodenitis, gastriti, + H pylori / ESOPHAGOGASTRODUODENOSCOPY (EGD), FLEXIBLE, TRANSORAL, DIAGNOSTIC performed by Khushi Interiano MD at ENDOSCOPY [facility] Review of patient's allergies indicates: No Known Allergies No family history on file. No family status information on file. Social History Tobacco Use Smoking status: Never Smokeless tobacco: Never Substance Use Topics Alcohol use: Never Vaping/E-Cigarette Use Vaping/E-Cigarette Use Never User Vaping/E-Cigarette Substances Vaping/E-Cigarette Devices Review of Systems: General: No [...] documented in this encounter Nursing Notes * Flavia Conroy LPN - 02/09/2024 6:04 PM EDT Patient presents today for a pre op for cataract surgery. She denies any concerns. documented in this encounter Plan of Treatment Upcoming Encounters Date Type Department Care Team (Late st Contact Info) Description 02/16/2024 2:30 PM EDT Office Visit Ophthalmology, [facility] 132 [facility] [place] [address] [place]ina DO [address] [place] [place] [address] 02/22/2024 1:05 PM EDT Hospital Encounter OR [facility], Operating Room [facility] [address] [place] [phone] [place]ina DO 15 [place] [place] [id number] 02/22/2024 1:05 PM EDT - 02/22/2024 1:50 PM EDT Surgery OR [facility], Operating Room OSS [address] [place] [phone] [place]ina, DO [address] [place] [place] [address] LEFT EXTRACAPSULAR CATARACT REMOVAL WITH INTRAOCULAR LENS 02/23/2024 9:15 AM EDT Office Visit Ophthalmology, [facility] [address] [place] [address] [place]ina, DO [address] [place] [place] [address] 02/28/2024 10:00 AM EDT Office Visit General Internal Medicine [facility] 200 [facility] [place] [address] Maritza Lyles MD 200 [facility] [place] [address] 03/01/2024 2:15 PM EDT Office Visit Ophthalmology, [facility] [address] [place] [address] [place] oMlina, 21 [place] [address] 03/07/2024 1:05 PM EDT Hospital Encounter OR [facility], Operating Room O[facility] [address] [place] [phone] [place], 21 [place] [address] 03/07/2024 1:05 PM EDT - 03/07/2024 1:51 PM EDT Surgery OR [facility], Operating Room OSS [address] [place] [phone] [place] oMlina, DO 21 [place] [address] RIGHT EXTRACAPSULAR CATARACT REMOVAL WITH INTRAOCULAR LENS 03/08/2024 8:45 AM EDT Office Visit Ophthalmology, [facility] 132 [place] [address] [place], DO 21 [place] [place] [address] 04/05/2024 3:45 PM EDT Office Visit Ophthalmology, [facility] 132 [facility] [place] [address] [place], DO [address] [place] [place] [address] Scheduled Procedures Name Priority Associated Diagnoses Date/Ti [...] Other and combined forms of senile cataract Age-related cataract of both eyes, unspecified age-related cataract type- Primary Type 2 diabetes mellitus with hemoglobin A1c goal of less than 7.0% (HCC) Hyperlipidemia with target LDL less than 100 Other and unspecified hyperlipidemia HTN, goal below 130/80 Unspecified essential hypertension Gastroesophageal reflux disease without esophagitis Esophageal reflux NEELAM (generalized anxiety disorder) Generalized anxiety disorder Stress-induced cardiomyopathy Takotsubo syndrome Combined forms of age-related cataract of both eyes Other and combined forms of senile cataract Cataract Unspecified cataract documented in this encounter Care Teams Painter And Decorator Apprentice Relationship Specialty Start Date End Date Maritza Lyles MD [address] [place] [address] [place], [place] [id number] PCP - General Internal Medicine 10/03/20 documented as of this encounter
--- OUTSIDE RECORDS SUMMARY | 2024-05-01 07:39 | External Medical Summary | Summary of Care ---
Author Name Unknown Organization [facility] Address [address] [facility] [place] [address] Phone [phone] Care Team Providers Care Eddy Current Inspector Name Role Phone Maritza Lyles MD Primary Care Provider + Encounter Details Date Type Department Care Team (Late st Contact Info) Description 02/14/2024 Orders Only Laboratory [address] [place] [address] [place] [address] Maritza Lyles MD 200 [facility] [place] [address] Iron deficiency anemia, unspecified iron deficiency anemia type* Allergies No known active allergiesdocumented as of [...] yrs 11/16/2023,12/23/2022 Pneumococcal Conjugate Vacci ne, 20-valent ([id number]) 12/23/2022 Pneumococcal Polysaccharide PPV23 (Pneumovax) Seasonal Influenza, [...] 02/16/2024 2:30 PM EDT Office Visit Ophthalmology, [facility] 132 [facility] [place] [address] [place]ina, DO 21 [place] [address] 02/22/2024 1:05 PM EDT Hospital Encounter OR [facility], Operating Room [facility]SS [address] [place] [address] [place], DO 21 [place] [address] 02/22/2024 1:05 PM EDT - 02/22/2024 1:50 PM EDT Surgery OR [facility], Operating Room OSS [address] [place] [phone] [place], DO 21 [place] [address] LEFT EXTRACAPSULAR CATARACT REMOVAL WITH INTRAOCULAR LENS 02/23/2024 9:15 AM EDT Office Visit Ophthalmology [facility] [address] [place] [address] [place]ina, DO 21 [place] [address] 02/28/2024 10:00 AM EDT Office Visit General Internal Medicine [address] [place] [address] [place] [address] Maritza Lyles MD [address] [facility] [place] [address] 03/01/2024 2:15 PM EDT Office Visit Ophthalmology [facility] 132 [facility] [place] [address] [place]ina, 21 [place] [address] 03/07/2024 1:05 PM EDT Hospital Encounter OR [facility], Operating Room [facility] [address] [place] [address] [place]ina, 21 [place] [address] 03/07/2024 1:05 PM EDT - 03/07/2024 1:51 PM EDT Surgery OR [facility], Operating Room [facility] [address] [place] [phone] [place], 21 [place] [address] RIGHT EXTRACAPSULAR CATARACT REMOVAL WITH INTRAOCULAR LENS 03/08/2024 8:45 AM EDT Office Visit Ophthalmology, [facility] 132 [facility] [place] [address] [place]ina, 21 [place] [address] 04/05/2024 3:45 PM EDT Office Visit Ophthalmology, [facility] 132 [facility] [place] [address] [place], 21 [place] [address] Scheduled Orders Name Type Priority Associated Diagnoses Orde r Schedule CBC WITH WBC DIFFERENTIAL Lab Routine Iron deficiency anemia, unspecified iron deficiency anemia type Expected: 03/16/2024 (Approximate), Expires: 02/13/2025 Scheduled Procedures Name Priority [...] cataract documented in this encounter Care Teams Eddy Current Inspector Relationship Specialty Start Date End Date Maritza Lyles MD 200 [facility] [place] [address] PCP - General Internal Medicine 10/03/20 documented as of this encounter
--- OUTSIDE RECORDS SUMMARY | 2024-05-01 07:39 | External Medical Summary | Summary of Care ---
Author Name Unknown Organization [facility] Address [address] [place] [facility] [place] [place] [place] [address] Phone [phone] Care Team Providers Care Automotive Repair Technician Name Role Phone Maritza Lyles MD Primary Care Provider + Reason for Visit * Reason Comments Outpatient Testing Encounter Details Date Type Department Care Team (Late st Contact Info) Description 02/14/2024 9:30 AM EDT Laboratory Laboratory [facility] [place] [address] [place] [address] [place], Lab [address]en[address] [place] [address] Type 2 diabetes mellitus with hemoglobin A1c [...] yrs 11/16/2023,12/23/2022 Pneumococcal Conjugate Vacci ne, 20-valent ([id number]) 12/23/2022 Pneumococcal Polysaccharide PPV23 (Pneumovax) Seasonal Influenza, [...] 02/16/2024 2:30 PM EDT Office Visit Ophthalmology, [facility] [address] [place] [address] [place]ina, DO [address] [place] [address] 02/22/2024 1:05 PM EDT Hospital Encounter OR [facility], Operating Room OSS 132 [place] [phone] [place], 21 [place] [address] 02/22/2024 1:05 PM EDT - 02/22/2024 1:50 PM EDT Surgery OR [facility], Operating Room OSS 132 [place] [phone] [place], 21 [place] [address] LEFT EXTRACAPSULAR CATARACT REMOVAL WITH INTRAOCULAR LENS 02/23/2024 9:15 AM EDT Office Visit Ophthalmology, [facility] 132 [place] [address] [place]ina, DO 21 [place] [address] 02/28/2024 10:00 AM EDT Office Visit General Internal Medicine [address] [place] [address] [place] [address] Maritza Lyles MD [address] [facility] [place] [address] 03/01/2024 2:15 PM EDT Office Visit Ophthalmology, [facility] [place] [address] [place], DO 21 [place] [address] 03/07/2024 1:05 PM EDT Hospital Encounter OR [facility], Operating Room [facility] [address] [place] [address] [place], DO 21 [place] [address] 03/07/2024 1:05 PM EDT - 03/07/2024 1:51 PM EDT Surgery OR [facility], Operating Room OSS [address] [place] [phone] [place]ina, DO 21 [place] [address] RIGHT EXTRACAPSULAR CATARACT REMOVAL WITH INTRAOCULAR LENS 03/08/2024 8:45 AM EDT Office Visit Ophthalmology, [facility] 132 [facility] [place] [address] [place], 21 [place] [address] 04/05/2024 3:45 PM EDT Office Visit Ophthalmology, [facility] 132 [facility] [place] [address] [place], 21 [place] [address] Pending Results Name Type Priority Associated Diagnoses Date /Time HEMOGLOBIN A1C Lab Routine Type 2 diabetes mellitus with hemoglobin A1c goal of less than 7.0% ([facility]) 02/14/2024 9:31 AM EDT LIPID PANEL WITH DIRECT LDL IF TG IS HIGH Lab Routine Hyperlipidemia with target LDL less than 100 02/14/2024 9:31 AM EDT COMPREHENSIVE METABOLIC PANEL Lab Routine Type 2 diabetes mellitus with hemoglobin A1c goal of less than 7.0% ([facility]) 02/14/2024 9:31 AM EDT CBC WITH WBC DIFFERENTIAL Lab Routine Sensation of cold in lower extremity Leukocytosis, unspecified type 02/14/2024 9:31 AM EDT CBC Lab Routine Sensation of cold in lower extremity Leukocytosis, unspecified type 02/14/2024 9:31 AM EDT DIFFERENTIAL, AUTOMATED Lab Routine Sensation of cold in lower extremity Leukocytosis, unspecified type 02/14/2024 9:31 AM EDT Scheduled Procedures Name Priority Associated Diagnoses [...] cataract documented in this encounter Care Teams Automotive Repair Technician Relationship Specialty Start Date End Date aMritza Lyles MD [address] [place] [address] PCP - General Internal Medicine 10/03/20 documented as of this encounter
--- OUTSIDE RECORDS SUMMARY | 2024-05-01 07:39 | External Medical Summary ---
Author Name Unknown Address Unknown Organization [id number]:[facility]ATORY [facility] [place] [address] [place] [address] Laboratory Report Ordering Provider Test Date Status HORTENCIA AWAN 02/14/2024 09:31:13 Final Observation Date Value Abnormality Reference (Units ) Status Vitamin B12 02/14/2024 09:31:13 556 [id number] (pg/mL) Final Performing Location LABORATORY [facility] - [address] [place] [address]
--- OUTSIDE RECORDS SUMMARY | 2024-05-01 07:39 | External Medical Summary ---
Author Name Unknown Address Unknown Organization [id number][place] [place] [address] [place] [address] Laboratory Report Ordering Provider Test Date Status HORTENCIA AWAN 02/14/2024 09:31:13 Final Observation Date Value Abnormality Reference (Units ) Status Triglyceride 02/14/2024 09:31:13 194 Above high normal <=174 (mg/dL) Final Triglyceride Reference Range s (mg/dL):
<150 Acceptable
150-174 Borderline high
175-499 High
>=500 Very high Cholesterol 02/14/2024 09:31:13 172 <200 (mg /dL) Final Total Cholesterol Reference Ranges (mg/dL):
<200 Desirable
200-239 Borderline high
>=240 High HDL 02/14/2024 09:31:13 41 Below low normal >49 (mg/dL) Final HDL Cholesterol Reference Ra nges (mg/dL):
>=60 High (Desirable)
<50 Low (Undesirable) For Females
<40 Low (Undesirable) For Males NON-HDL CHOLESTEROL 02/14/2024 09:31:13 131 <=159 (mg/dL) Final Non-HDL Cholesterol Referenc e Range (mg/dL):
<100 Target level for high risk ASCVD patient
<130 Optimal for general population
130-159 Near optimal for general population
160-189 Borderline High
190-219 High
>=220 Very High LDL, (calculated) 02/14/2024 09:31:13 92 <= 129 (mg/dL) Final LDL Cholesterol Reference Ra nges (mg/dL):
<70 Target level for high risk ASCVD patient
<100 Optimal for general population
100-129 Near optimal for general population
130-159 Borderline high
160-189 High
>=190 Very high Performing Location [place] [place] [address] [facility] [address]
--- OUTSIDE RECORDS SUMMARY | 2024-05-01 07:39 | External Medical Summary | Summary of Care ---
Author Name Unknown Organization [facility] Address [address] [place] [facility] [place] [address] Phone [phone] Care Team Providers Care Marble Installer Supervisor Name Role Phone Maritza Lyles MD Primary Care Provider + Reason for Referral * Evaluate & Treat - Unlimited Visits (Within 10 days (routine)) - Authorized Specialty Diagnoses / Procedures Referred By Contac t Referred To Contact Hematology/Oncology / Hematology Oncology Diagnoses Iron deficiency anemia, unspecified iron deficiency anemia type Maritza Lyles MD 200 [facility] [place], [place] [address] Referral ID Status Reason Start Date Expiration Date Visits Requested Visits Authorized [id number] Authorized Specialty Services Required 02/16/2024 999 999 [...] 02/16/2024 Telephone General Internal Medicine [address] [place] [address] [place], [place] [address] Maritza Lyles MD 200 [facility] [place] [address] Abnormal Test Results Allergies No known active [...] yrs 11/16/2023,12/23/2022 Pneumococcal Conjugate Vacci ne, 20-valent ([id number]) 12/23/2022 Pneumococcal Polysaccharide PPV23 (Pneumovax) Seasonal Influenza, [...] 10:25 AM EDT Order received for venofer. [place] plan built and routed for signature. Prior [...] 02/16/2024 2:30 PM EDT Office Visit Ophthalmology, [facility] [address] [address] [place], DO [address] [place] [address] 02/22/2024 1:05 PM EDT Hospital Encounter OR [facility], Operating Room [facility] [address] [place] [address] [place], 21 [place] [address] 02/22/2024 1:05 PM EDT - 02/22/2024 1:50 PM EDT Surgery OR [facility], Operating Room [facility] [address] [place] [phone] [place], 21 [place] [place] [address] LEFT EXTRACAPSULAR CATARACT REMOVAL WITH INTRAOCULAR LENS 02/23/2024 9:15 AM EDT Office Visit Ophthalmology, [facility] 132 [facility] [place] [address] [place], DO [address] [place] [address] 02/28/2024 10:00 AM EDT Office Visit General Internal Medicine [facility] [address] [place] [address] Maritza Lyles MD [address] [place] [address] 03/01/2024 2:15 PM EDT Office Visit Ophthalmology, [facility] 132 [facility] [place] [address] [place]ina, DO [address] [place] [address] 03/07/2024 1:05 PM EDT Hospital Encounter OR [facility], Operating Room [facility] [address] [facility] [place] [phone] [place]ina, DO 21 [place] [address] 03/07/2024 1:05 PM EDT - 03/07/2024 1:51 PM EDT Surgery OR [facility], Operating Room [facility] [address] [facility] [place] [phone] [place], DO [address] [address] RIGHT EXTRACAPSULAR CATARACT REMOVAL WITH INTRAOCULAR LENS 03/08/2024 8:45 AM EDT Office Visit Ophthalmology, [facility] [address] [facility] [place] [address] [place]ina, DO 21 [place] [address] 04/05/2024 3:45 PM EDT Office Visit Ophthalmology, [facility] 132 [facility] [place] [address] [place], DO [address] [place] [address] Scheduled Orders Name Type Priority Associated Diagnoses [...] cataract documented in this encounter Care Teams Marble Installer Supervisor Relationship Specialty Start Date End Date Maritza Lyles MD [address] [place], [place] [address] PCP - General Internal Medicine 10/03/20 documented as of this encounter
--- OUTSIDE RECORDS SUMMARY | 2024-05-01 07:40 | External Medical Summary | Summary of Care ---
Author Name Unknown Organization [facility] Address [address] [place] [address] Phone [phone] Care Team Providers Care Food Cooking Machine Operator Name Role Phone Lv Lyles MD Primary Care Provider + Reason for Visit * Reason Comments eRx-Medication Refill Encounter Details Date Type Department Care Team (Late st Contact Info) Description 11/26/2023 Refill General Internal Medicine [facility] [place] 200 [facility] [place] [address] Lv Lyles MD 200 [place] [address] Gastroesophageal reflux disease without esophagitis; HTN, goal below 130/80 Allergies No known active allergiesdocumented as of this encounter (statuses as of 11/28/2023) Medications Medication Sig Dispensed Refills Start Date End Date Status Aspirin 81 MG Oral Capsule TAKE 1 TABLET BY MOUTH EVERY DAY 0 05/23/2021 Active metFORMIN HCl 500 MG Oral Tablet (Glucophage)Indic ations:Type 2 diabetes mellitus with hemoglobin A1c goal of less than 7.0% ([facility]) Take 2 Tablets by mouth 2 times a day with morning and evening meals. 360 Tablet 3 11/16/2022 Active Furosemide 20 MG Oral Tablet (Lasix) Take 1 Tablet by mouth in the morning. 90 Tablet 3 02/17/2023 Active Metoprolol Succinate ER 25 MG Oral [...] THE MORNING 90 Tablet 1 11/28/2023 Active Losartan Potassium 50 MG Oral Tablet (Cozaar)Indicatio ns:HTN, goal below 130/80 Take 1 Tablet by mouth in the morning. 90 Tablet 3 02/17/2023 4 Discontinued Omeprazole 40 MG Oral Capsule Delayed Release (PriLOSEC)Indicat ions:Gastroesopha geal reflux disease without esophagitis TAKE 1 CAPSULE BY MOUTH IN THE MORNING AND BEFORE BEDTIME 180 Capsule 1 09/01/2023 4 Discontinued documented as of this encounter (statuses as of 11/28/2023) Active Problems Problem Noted Date Diagnosed Date Stress-induced cardiomyopathy 05/10/2023 Type 2 diabetes mellitus wit h hemoglobin A1c goal of less than 7.0% 11/02/2021 Hyperlipidemia with target LDL less than 100 HTN, goal below 130/80 11/02/2021 Gastroesophageal reflux disease without esophagi tis 11/02/2021 NEELAM (generalized anxiety disorder) 08/20/2021 documented as of this encounter (statuses as of 11/28/2023) Immunizations Name Administration Dates Next Due Hepatitis B, 20+ yrs 11/16/2023,12/23/2022 Pneumococcal Conjugate Vacci ne, 20-valent ([id number]) 12/23/2022 Pneumococcal Polysaccharide PPV23 (Pneumovax) Seasonal Influenza, [...] encounter Miscellaneous Notes * Telephone Encounter - Meera Lora [facility] - 11/28/2023 2:01 PM EDT Signed Prescriptions: Disp Refills Omeprazole 40 MG Oral Capsule Delayed Rele*180 Ca*1 Sig: TAKE 1 CAPSULE BY MOUTH IN THE MORNING AND BEFORE BEDTIMEAuthorizing Provider: LV LYLES User: MEERA LORA Losartan Potassium 50 MG Oral Tablet (Coza*90 Tab*1 Sig: TAKE 1 TABLET BY MOUTH EVERY DAY IN THE MORNINGAuthorizing Provider: LV LYLES User: MEERA LORA documented in this encounter Plan of Treatment Upcoming Encounters Date Type Department Care Team (Late st Contact Info) Description 01/05/2024 1:30 PM EDT Office Visit Ophthalmology, [facility] 132 [facility] [place] [address] Caemron Molina DO [address] [place] [address] 02/28/2024 10:00 AM EDT Office Visit General Internal Medicine [facility] [place] [facility] [address] Lv Lyles MD 200 [facility] [place] [address] Scheduled Procedures Name Priority Associated Diagnoses Date/Ti me COLONOSCOPY FLEXIBLE PROXIMAL DIAGNOSTIC Recall Screen for colon cancer Health Maintenance Due Date Last Done Comments Depression Screening 1976 Diabetic Eye Exam 1982 Pap Smear 1985 Cervical Cancer Screening 1994 [...] exists Diabetic Foot Exam 08/24/2024 08/24/2023, 11/03/2021 Lipid Panel 06/28/2028 06/28/2023, 09/19, 05/04/2022, Additional [...] as of this encounter Visit Diagnoses Diagnosis Gastroesophageal reflux disease without esophagitis Esophageal reflux HTN, goal below 130/80 Unspecified essential hypertension documented in this encounter Care Teams Food Cooking Machine Operator Relationship Specialty Start Date End Date Lv Lyles MD 200 [facility] [place] [address] PCP - General Internal Medicine 10/03/20 documented as of this encounter
--- OUTSIDE RECORDS SUMMARY | 2024-05-01 07:40 | External Medical Summary | Summary of Care ---
Author Name Unknown Organization [facility] Address [address] [place] [address] Phone [phone] Care Team Providers Care Support Engineer Name Role Phone Maritza Lyles MD Primary Care Provider + Reason for Visit * Reason Comments Physical-Exam Pt is here today to complete a PE. She has concerns about aching and pain in both of her legs and her feet and legs feel cold. Sx started about a month ago. Encounter Details Date Type Department Care Team (Late st Contact Info) Description 11/16/2023 3:40 PM EST Office Visit General Internal Medicine [facility] [place] 200 [facility] [place] [address] Milady Machado MD 200 [place] [address] Sensation of cold in lower extremity*; Need for hepatitis B vaccination; Chronic bilateral low back pain without sciatica; Leukocytosis, unspecified type Allergies No known active allergiesdocumented as of this encounter (statuses as of 11/16/2023) Medications Medication Sig Dispensed Refills Start Date [...] the morning. 90 Tablet 3 02/17/2023 Active Losartan Potassium 50 MG Oral Tablet (Cozaar)Indications: HTN, goal below 130/80 Take 1 Tablet by [...] AND BEFORE BEDTIME 180 Capsule 1 09/01/2023 Active documented as of this encounter (statuses as of 11/16/2023) Active Problems Problem Noted Date Diagnosed Date Stress-induced cardiomyopathy 05/10/2023 Type 2 diabetes mellitus wit h hemoglobin A1c goal of less than 7.0% 11/02/2021 Hyperlipidemia with target LDL less than 100 HTN, goal below 130/80 11/02/2021 Gastroesophageal reflux disease without esophagi tis 11/02/2021 NEELAM (generalized anxiety disorder) 08/20/2021 documented as of this encounter (statuses as of 11/16/2023) Immunizations Name Administration Dates Next Due Hepatitis B, 20+ yrs 11/16/2023,12/23/2022 Pneumococcal Conjugate Vacci ne, 20-valent ([id number]) 12/23/2022 Pneumococcal Polysaccharide PPV23 (Pneumovax) Seasonal Influenza, [...] Sign Reading Time Taken Comments Blood Pressure 118/78 11/16/2023 3:42 PM EST Pulse 96 11/16/2023 3:42 PM EST Temperature 36.3 C (97.4 F) 11/16/2023 3:42 PM ES T Respiratory Rate - - Oxygen Saturation 95% 11/16/2023 3:42 PM EST Inhaled Oxygen Concentration - - Weight 82.6 kg (182 lb 1.6 oz) 11/16/2023 3:42 P M EST Height - - Body Mass Index 33.85 08/24/2023 10:39 AM EST documented in this encounter Patient Instructions * Patient Instructions* Melissa Nielson MED ASSIST - 11/16/2023 3:45 PM EST Vaccination is the best way to protect against hepatitis B. Most people should get 3 doses of hepatitis B vaccine. If you miss a dose or get behind schedule, get the next dose as soon as you can. There is no need to start over. Age for Hepatitis B Vaccine: INFANTS: *Infants whose mother HAS hepatitis B virus: #1 dose- at 2 month visit #2 dose- 1 month after dose #1 #3 dose- 7 months of age (at least 5 months after dose #1) *Infants whose mother does NOT have hepatitis B virus: #1 dose- - 2 months of age #2 dose- 1-4 months of age (at least 1 month after dose #1) #3 dose- 6-18 months of age ( at least 2 months after dose #2) *Other recommended age groups #1 dose- Now #2 dose- 1-2 months after dose #1 #3 dose- 4-6 months after dose #1 WHAT ARE THE RISKS FROM HEPATITIS B VACCINE? Hepatitis B vaccine is one of the safest vaccines. Getting the disease is much more likely to causeserious illness than getting the vaccine. MILD PROBLEMS: - soreness where the shot was given. - mild to moderate fever Acetaminophen or Ibuprofen (not aspirin) may be used to reduce fever and pain. SEVERE PROBLEMS: - serious allergic reaction is very rare. WHAT TO DO IF THERE IS A SERIOUS REACTION: - Call a doctor or get the person to a doctor right away. - Ask your doctor, nurse, or health department to file a Vaccine Adverse Event Report form. To filea report yourself you can call: (toll-free) LET YOUR DOCTOR KNOW IMMEDIATELY IF YOU HAVE DIFFICULTY BREATHING OR SWALLOWING, EXPERIENCE ITCHING OF FEET OR HANDS, HAVE SWELLING OF EYES, FACE OR INSIDE OF NOSE. documented in this encounter Progress Notes * Milady Machado MD - 11/16/2023 4:02 PM EST SUBJECTIVE: Taj Laura is a 57 year old female. Chief Complaint Patient presents with Physical-Exam Pt is here today to complete a PE. She has concerns about aching and pain in both of her legs and her feet and legs feel cold. Sx started about a month ago. HPI: Patient presents today for acute appointment accompanied by her daughter., has concerns about feeling cold in her feet and her legs for the past month. Denies any change in color of the skin, symptoms are not present when she wakes up in the morning. She tries to wear warm socks 2 layers sometimes.. Admits to an aching sensation in her legs on standing or walking a short distance. Also admits to low back pain for many years, had an x-ray when she was in [place]. No symptoms calf claudication. Past medical history, medications reviewed. Last labs reviewed. Vaccines reviewed. Could get COVID vaccine at the pharmacy. Has appointment with PCP in February Immunization History Administered Date(s) Administered COVID-19 mRNA, LNP-s, No Preserve, 2-Dose Series ([employer]) 12/02/2020, 12/23/2020 Hepatitis B, 20+ yrs 12/23/2022, 11/16/2023 Pneumococcal Conjugate Vaccine, 20-valent ([id number]) 12/23/2022 Pneumococcal Polysaccharide PPV23 (Pneumovax) 11/03/2021 Seasonal Influenza, PF, 6 M & above, IM , (FluLaval or Fluzone) 09/24/2022, 08/24/2023 TDAP (age 10 and older)(Boostrix) 05/04/2022 Zoster Vaccine Recombinant (Shingrix) 11/03/2021, 05/04/2022 Patient Active Problem List Diagnosis Code NEELAM (generalized anxiety disorder) F41.1 Type 2 diabetes mellitus with hemoglobin A1c goal of less than 7.0% ([facility]) E11.9 Hyperlipidemia with target LDL less than 100 E78.5 HTN, goal below 130/80 I10 Gastroesophageal reflux disease without esophagitis K21.9 Stress-induced cardiomyopathy I51.81 Current Outpatient Medications Medication Sig Dispense Refill Aspirin 81 MG Oral Capsule TAKE 1 TABLET BY MOUTH EVERY DAY metFORMIN HCl 500 MG Oral Tablet (Glucophage) Take 2 Tablets by mouth 2 times a day with morning and evening meals. 360 Tablet 3 Furosemide 20 MG Oral Tablet (Lasix) Take 1 Tablet by mouth in the morning. 90 Tablet 3 Metoprolol Succinate ER 25 MG Oral Tablet Extended Release 24 Hour (toPROL XL) Take 1 Tablet by mouth in the morning. 90 Tablet 3 Losartan Potassium 50 MG Oral Tablet (Cozaar) Take 1 Tablet by mouth in the morning. 90 Tablet 3 Atorvastatin Calcium 80 MG Oral Tablet (Lipitor) Take 1 Tablet by mouth in the morning. 90 Tablet 3 Omeprazole 40 MG Oral Capsule Delayed Release (PriLOSEC) TAKE 1 CAPSULE BY MOUTH IN THE MORNING ANDBEFORE BEDTIME 180 Capsule 1 No current facility-administered medications for this visit. Review of patient's allergies indicates: No Known Allergies OBJECTIVE: BP 118/78 | Pulse 96 | Temp 36.3 C (97.4 F) (Tympanic) | Wt 82.6 kg (182 lb 1.6 oz) | SpO2 95% | BMI 33.85 kg/m | BSA 1.89 m PHYSICAL EXAM: General: alert, healthy, no distress, well nourished and well developed Heart: regular rate & rhythm, no gallops /murmurs. Lungs: lungs clear to auscultation Extremities: no edema Back: Curvature NORMAL Range of motion- normal , no CVA/spine;no SI joint tenderness. Neuro: alert, gait normal ,motor normal, gross sensation normal,reflexes 1+and symmetric, SLR neg monty. Feet--not cold to touch, skin color normal, DP and PT well felt Monty radial pulse equal ASSESSMENT/PLAN: Sensation of cold in lower extremity (Primary) - VASC ANKLE BRACHIAL INDICES WITHOUT PPG (PAD); Future; Expected date: 11/17/2023 - CBC WITH WBC DIFFERENTIAL; Future; Expected date: 01/23/2024 Need for hepatitis B vaccination - HEP B VACCINE, 20+ YRS (3-DOSE) Chronic bilateral low back pain without sciatica - XR L SPINE AP AND LATERAL; Future; Expected date: 11/16/2023 Leukocytosis, unspecified type - CBC WITH WBC DIFFERENTIAL; Future; Expected date: 01/23/2024 Follow Up: Return if symptoms worsen or fail to improve. (This note was completed using the dictation program Fluency Direct. As such, there may be misspellings, word substitutions, or other variations that should not change the essence of the clinical content of this encounter note. If there is need for further clarification, please direct questions to the provider listed above.) Patient and / caregiver verbalize understanding of above instructions and agrees with plan of care. Milady Machado MD 11/16/2023 * Melissa Nielson MED ASSIST - 11/16/2023 3:45 PM EST The patient has been properly identified by confirmation of name and date of . Hepatitis B VIS given to patient. Hepatitis B ordered and Provider aware. GELY Keene Time Out Procedure Performed: Yes Patient Identified (Ask Name/Date of ): Yes Immunization(s) verified: Yes, VIS Sheet(s) given: Yes Verified Side and Site: Yes Verified Shot(s) with Patient: Yes GELY Keene documented in this encounter Nursing Notes * Melissa Nielson MED ASSIST - 11/16/2023 3:42 PM EST Chief Complaint Patient presents with Physical-Exam Pt is here today to complete a PE. She has concerns about aching and pain in both of her legs and her feet and legs feel cold. Sx started about a month ago. documented in this encounter Plan of Treatment Upcoming Encounters Date Type Department Care Team (Late st Contact Info) Description 11/21/2023 2:00 PM EST [facility] [address] [facility] [place] [address] 01/05/2024 1:30 PM EDT Office Visit Ophthalmology, [facility] [address] [facility] [place] [address] Cameron Molina, DO [address] [place] [address] 02/28/2024 10:00 AM EDT Office Visit General Internal Medicine [facility] [address] [place] [address] Maritza Lyles MD [address] [place] [address] Pending Results Name Type Priority Associated Diagnoses Date /Time XR L SPINE AP AND LATERAL Medical Imaging Routine Chronic bilateral low back pain without sciatica 11/16/2023 4:30 PM EST Scheduled Orders Name Type Priority Associated Diagnoses Orde r Schedule VASC ANKLE BRACHIAL INDICES WITHOUT PPG (PAD) Medical Imaging Routine Sensation of cold in lower extremity Expected: 11/17/2023, Expires: 12/14/2024 XR L SPINE AP AND LATERAL Medical Imaging Routine Chronic bilateral low back pain without sciatica Expected: 11/16/2023, Expires: 12/14/2024 CBC WITH WBC DIFFERENTIAL Lab Routine Sensation of cold in lower extremity Leukocytosis, unspecified type Expected: 01/23/2024 (Approximate), Expires: 11/16/2024 Scheduled Procedures Name Priority Associated Diagnoses Date/Ti [...] as of this encounter Visit Diagnoses Diagnosis Sensation of cold in lower extremity- Primary Need for hepatitis B vaccination Need for prophylactic vaccination and inoculation against viral hepatitis Chronic bilateral low back pain without sciatica Leukocytosis, unspecified type documented in this encounter Care Teams Support Engineer Relationship Specialty Start Date End Date Maritza Lyles MD 200 [facility] [place] [address] PCP - General Internal Medicine 10/03/20 documented as of this encounter"
--- OUTSIDE RECORDS SUMMARY | 2024-05-01 07:40 | External Medical Summary | Summary of Care ---
Author Name Unknown Organization [facility] Address [address] [place] [address] Phone [phone] Care Team Providers Care Lamp Cleaner Name Role Phone Maritza Lyles MD Primary Care Provider + Reason for Referral * Evaluate & Treat - Unlimited Visits (Within 10 days (routine)) - Authorized Specialty Diagnoses / Procedures Referred By Gus ramirez Referred To Contact Physical Therapy / Physical Medicine And Rehab Diagnoses Low back pain without sciatica, unspecified back pain laterality, unspecified chronicity Milady Machado MD [address] [place] [address] [place] [address] Referral ID Status Reason Start Date Expiration Date Visits Requested Visits Authorized [id number] Authorized Specialty Services Required 11/25/[phone] Question Answer Referral Priority Within 10 days (routine) Where should this appointment be scheduled? External Reason for Visit * Reason Onset Date Comments Test Results 11/23/2023 Encounter Details Date Type Department Care Team (Late st Contact Info) Description 11/23/2023 Telephone General Internal Medicine [facility] [place] [address] [place] [address] Milady Machado MD [address] [facility] [place] [address] Test Results Allergies No known active allergiesdocumented as of this encounter (statuses as of 12/26/2023) Medications Medication Sig Dispensed Refills Start Date [...] the morning. 90 Tablet 3 02/17/2023 Active documented as of this encounter (statuses as of 12/26/2023) Active Problems Problem Noted Date Diagnosed Date Stress-induced cardiomyopathy 05/10/2023 Type 2 diabetes mellitus wit h hemoglobin A1c goal of less than 7.0% 11/02/2021 Hyperlipidemia with target LDL less than 100 HTN, goal below 130/80 11/02/2021 Gastroesophageal reflux disease without esophagi tis 11/02/2021 NEELAM (generalized anxiety disorder) 08/20/2021 documented as of this encounter (statuses as of 12/26/2023) Immunizations Name Administration Dates Next Due Hepatitis B, 20+ yrs 11/16/2023,12/23/2022 Pneumococcal Conjugate Vacci ne, 20-valent ([id number]) 12/23/2022 Pneumococcal Polysaccharide PPV23 (Pneumovax) Seasonal Influenza, [...] encounter Miscellaneous Notes * Telephone Encounter - Tyesha Braxton OSA - 12/26/2023 12:54 PM EDT MyG message sent asking where patient wants to go for PT. 12/26/2023 * Telephone Encounter - Tosha Biggs MD - 11/25/2023 4:18 PM EST Signed and sent to scheduling * Telephone Encounter - Ana Jones LPN - 11/25/2023 2:47 PM EST Patient notified of message below. Verbalized understanding. She is agreeable to PT. * Telephone Encounter - Milady Machado MD - 11/23/2023 12:42 PM EST See result notes for CHELY-nml * Telephone Encounter - Leticia Razo LPN - 11/23/2023 9:23 AM EST CHELY results finalized in chart, Please review results. Nursing, when calling to give CHELY results, please review x-ray results below with patient. * Telephone Encounter - Leticia Razo LPN - 11/23/2023 9:21 AM EST ----- Message from Milady Machado MD sent at 11/18/2023 3:25 PM EST ----- -X-ray of the lumbar spine-multilevel small joint arthritis most pronounced at L3-4. Trial of Tylenol 1 tablet twice daily may increase to 2 tablets twice daily for back pain, will benefit from physical therapy, if willing please pend referral. - await CHELY 11/21/23 documented in this encounter Plan of Treatment Upcoming Encounters Date Type Department Care Team (Late st Contact Info) Description 01/05/2024 1:30 PM EDT Office Visit Ophthalmology, [facility] 132 [facility] [place] [address] Cameron Molina, DO [address] [place] [address] 02/28/2024 10:00 AM EDT Office Visit General Internal Medicine [facility] 200 [facility] [place] [address] Maritza Lyles MD 200 [facility] [place] [address] Scheduled Procedures Name Priority Associated Diagnoses Date/Ti me COLONOSCOPY FLEXIBLE PROXIMAL DIAGNOSTIC Recall Screen for colon cancer Scheduled Referrals Name Type Priority Associated Diagnoses Orde r Schedule PHYSICAL THERAPY REFERRAL OP Referral Within 10 days (routine) Low back pain without sciatica, unspecified back pain laterality, unspecified chronicity Ordered: 11/25/2023 Health Maintenance Due Date Last Done Comments [...] series) 01/11/2024 11/16/2023, 12/23/2022 GFR 06/28/2024 06/28/2023, /05/2023, 10/04/2022, Additional history exists Diabetic Foot Exam [...] as of this encounter Visit Diagnoses Diagnosis Low back pain without sciatica, unspecified back pain laterality, unspecified chronicity- Primary documented in this encounter Care Teams Lamp Cleaner Relationship Specialty Start Date End Date Maritza Lyles MD [address] [place] [address] PCP - General Internal Medicine 10/03/20 documented as of this encounter
--- OUTSIDE RECORDS SUMMARY | 2024-05-01 07:40 | External Medical Summary | Summary of Care ---
Author Name Unknown Organization [facility] Address [address] [facility] [address] Phone [phone] Care Team Providers Care Field Reporter Name Role Phone Lv Lyles MD Primary Care Provider + Reason for Visit * Reason Onset Date Comments Medication Refill 01/09/2024 Encounter Details Date Type Department Care Team (Late st Contact Info) Description 01/09/2024 Refill General Internal Medicine [facility] [place] [address] [place] [address] Lv Lyles MD [address] [facility] [place] [id number] Allergies No known active allergiesdocumented as of this encounter (statuses as of 01/11/2024) Medications Medication Sig Dispensed Refills Start Date [...] the morning. 90 Tablet 3 01/11/2024 Active Metoprolol Succinate ER 25 MG Oral Tablet Extended Release 24 Hour (toPROL XL) Take 1 Tablet by mouth in the morning. 90 Tablet 3 02/17/2023 01/09/2024 Discontinued (Refill) documented as of this encounter (statuses as of 01/11/2024) Active Problems Problem Noted Date Diagnosed Date [...] as of this encounter (statuses as of 01/11/2024) Immunizations Name Administration Dates Next Due Hepatitis B, 20+ yrs 11/16/2023,12/23/2022 Pneumococcal Conjugate Vacci ne, 20-valent ([id number]) 12/23/2022 Pneumococcal Polysaccharide PPV23 (Pneumovax) Seasonal Influenza, [...] encounter Miscellaneous Notes * Telephone Encounter - Lv Lyles MD - 01/11/2024 11:51 AM EDT Signed Prescriptions: Disp Refills Metoprolol Succinate ER 25 MG Oral Tablet *90 Tab*3 Sig: Take 1 Tablet by mouth in the morning. Authorizing Provider: LV LYLES * Telephone Encounter - Ana Jones LPN - 01/11/2024 7:35 AM EDTPending Prescriptions: Disp Refills Metoprolol Succinate ER 25 MG Oral Tablet *90 Tab*3 Sig: Take 1 Tablet by mouth in the morning. * Telephone Encounter - Lucero Sahver OSA - 01/09/2024 12:05 PM EDT Did you pend patient's preferred pharmacy and medication before forwarding?yes Pharmacy: [id number] Pending Prescriptions: Disp Refills Metoprolol Succinate ER 25 MG Oral Tablet*90 Tab*3 Sig: Take 1 Tablet by mouth in the morning. Last Visit: 11/16/2023 (in office), 09/09/2022 (telemedicine) Next Visit: 02/28/2024 If no future appointments scheduled, and last appointment is greater than a year ago, please schedule patient for a follow-up appointment Last date the medication was ordered: Is this request for a controlled substance?No Urine Drug Screen:No results found for this or any previous visit. Patient Phone Numbers Labs: Lab Results Component Value Date/Time CREAT 0.6 06/28/2023 09:42 AM CREAT 0.69 07/02/2021 12:00 AM CREAT 0.6 09/09/2020 03:30 PM POTASSIUM 5.0 06/28/2023 09:42 AM POTASSIUM 3.6 07/02/2021 12:00 AM POTASSIUM 4.8 09/09/2020 03:30 PM LDLCALC 99 09/09/2020 03:30 PM LDLDIRECT 83 06/28/2023 09:42 AM LDLDIRECT NOT APPLICABLE 07/01/2020 10:00 AM ALT 29 06/28/2023 09:42 AM ALT 20 09/09/2020 03:30 PM HGBA1C 7.0 (H) 06/28/2023 09:42 AM HGBA1C 6.9 (H) 09/09/2020 03:30 PM documented in this encounter Plan of Treatment Upcoming Encounters Date Type Department Care Team (Late st Contact Info) Description 02/28/2024 10:00 AM EDT Office Visit General Internal Medicine [facility] [address] [place] [address] Lv yLles MD [address] [facility] [place] [id number] Scheduled Procedures Name Priority Associated Diagnoses Date/Ti me EXTRACAPSULAR CATARACT REMOV AL WITH INTRAOCULAR LENS Combined forms of age-related cataract of both eyes COLONOSCOPY FLEXIBLE PROXIMA L DIAGNOSTIC Recall Screen [...] filedocumented as of this encounter Care Teams Field Reporter Relationship Specialty Start Date End Date Lv Lyles MD [address] [facility] [place] [place] [address] PCP - General Internal Medicine 10/03/20 documented as of this encounter
--- OUTSIDE RECORDS SUMMARY | 2024-05-01 07:40 | External Medical Summary | Summary of Care ---
Author Name Unknown Organization [facility] Address [address] [facility] [address] Phone [phone] Care Team Providers Care Coremaker Machine Name Role Phone Maritza Lyles MD Primary Care Provider + Reason for Visit * Reason Comments NEW PATIENT Cataracts Encounter Details Date Type Department Care Team (Late st Contact Info) Description 01/05/2024 1:30 PM EDT Office Visit Ophthalmology, [facility] [address] [facility] [address] [place] [address] Cameron Molina, DO [address] [facility] [place] [address] Type 2 diabetes mellitus with hemoglobin A1c goal of less than 7.0% (HCC)*; Diabetic eye exam (HCC); Combined forms of age-related cataract of both eyes Allergies No known active allergiesdocumented as of this encounter (statuses as of 01/05/2024) Medications Medication Sig Dispensed Refills Start Date [...] THE MORNING 90 Tablet 1 11/28/2023 Active documented as of this encounter (statuses as of 01/05/2024) Active Problems Problem Noted Date Diagnosed Date [...] as of this encounter (statuses as of 01/05/2024) Immunizations Name Administration Dates Next Due Hepatitis B, 20+ yrs 11/16/2023,12/23/2022 Pneumococcal Conjugate Vacci ne, 20-valent ([id number]) 12/23/2022 Pneumococcal Polysaccharide PPV23 (Pneumovax) Seasonal Influenza, [...] as of this encounter Progress Notes * Tracy Cameron Castorena, - 01/05/2024 1:30 PM EDT 01/05/2024 Taj Laura is a 58 year old patient here for cataract evaluation. Referred by [facility] Patient c/o progressively increasing difficulty with vision in both eyes at distance < near[facility] [id number] The following activities are more difficult because of blurred vision from the cataract in the left>right EYE : Reading the newspaper: yes Reading medication labels: yes Watching TV: yes Driving during the day: yes Driving at night: yes Recognizing people: yes Past Ocular History, reviewed: Cataract OU Eye Medications, reviewed: Denies Hx of refractive procedure, reviewed: Denies Hx of contact lens use, reviewed: Denies Hx of eye trauma, reviewed: Denies FOHx, reviewed: Denies Review of Systems Unless noted above, all other systems negative. Nursing notes reviewed. Base Eye Exam Visual Acuity (Snellen - Linear) Right Left Dist sc 20/50 -2 20/150 Dist ph sc NI 20/60 -2 Tonometry (Tonopen, 1:51 PM) Right Left Pressure 17 15 Pupils Dark Shape React APD Right 2 Round Minimal None Left 2 Round Minimal None Visual [place] (Counting fingers) Right Left Full Full May be inaccurate due to patient compliance Extraocular Movement Right Left Full Full Dilation Both eyes: 1.0% Mydriacyl, 2.5% Phenylephrine @ 1:51 PM Additional Tests Keratometry (Automated) K1 Warren K2 Warren Right 45.50 41 45.75 131 Left 45.75 160 47.25 70 Slit Lamp and Fundus Exam External Exam Right Left External Normal Normal Slit Lamp Exam Right Left Lids/Lashes DCL DCL Conjunctiva/Sclera White and quiet White and quiet Cornea Clear Clear Anterior Chamber Deep and quiet Deep and quiet Iris Round and reactive, PD 6.5mm Round and reactive, PD 6.5mm Lens 3+ NSC, 4+ PSC 3+ NSC, 4+ PSC Fundus Exam Right Left Vitreous Hazy view hazy view Disc hazy view hazy view Macula hazy view hazy view Vessels Normal Normal Periphery Normal Normal Refraction Manifest Refraction Unable to obtain A/P: Cataract OU Recommend CE/IOL left eye [...] retina flat Flomax = Denies Claustrophobia = DND Anesthesia = DND (did not discuss) Hx of refractive procedure=Denies IOL Measurements = Next visit IOL interpretation = Biometry (IOL) & topography [...] Last performed 12/2023 Due next 12/2024 RTC IOL/jose manuel or sooner prn. A/P explained, patient verbalized understanding. Patient understands to f/u immediately with questions, concerns, or any ophthalmic issues. Cameron Molina DO 01/05/24 I spent a total of 30-39 minutes (exact time 30 mins) on the date of service in preparation, delivery, and documentation of the care provided to Taj Laura excluding any time spent in the performanceof separately billed services. documented in this encounter Nursing Notes * Carmen Junior COA - 01/05/2024 1:37 PM EDT Pt presents to the clinic today as a new patient for a cataract eval. Last eye exam about 1 year ago at [facility]. Do you check your sugar daily? NO. Last Hemoglobin A1C: Lab Results Component Value Date/Time HGBA1C 7.0 (H) 06/28/2023 09:42 AM HGBA1C 7.0 (H) 10/04/2022 02:02 PM HGBA1C 6.8 (H) 05/04/2022 04:47 PM HGBA1C 6.9 (H) 09/09/2020 03:30 PM HGBA1C 7.0 (H) 07/01/2020 10:00 AM HGBA1C 6.6 (H) 01/24/2020 10:55 AM documented in this encounter Plan of Treatment Upcoming Encounters Date Type Department Care Team (Late st Contact Info) Description 02/28/2024 10:00 AM EDT Office Visit General Internal Medicine [place] [address], [place] [address] Maritza Lyles MD [address] [place] [id number] Scheduled Procedures Name Priority Associated Diagnoses Date/Ti [...] as of this encounter Visit Diagnoses Diagnosis Type 2 diabetes mellitus with hemoglobin A1c goal of less than 7.0% (HCC)- Primary Diabetic eye exam (HCC) Type II or unspecified type diabetes mellitus without mention of complication, not stated as uncontrolled Combined forms of age-related cataract of both eyes Other and combined forms of senile cataract documented in this encounter Care Teams Coremaker Machine Relationship Specialty Start Date End Date Maritza Lyles MD [address] [facility] [place] [address] PCP - General Internal Medicine 10/03/20 documented as of this encounter
--- NOTE | 2024-05-01 08:01 | History & Physical Report ---
Date of Service May 01, 2024 Assessment & Plan (1) Acute respiratory failure with hypoxia and hypercarbia: Plan: 58-year-old female with past medical history significant for type 2 diabetes, hypertension, history of stress-induced cardiomyopathy, hyperlipidemia, GERD, iron deficiency anemia, generalized anxiety disorder presents with hypertensive urgency and acute CHF. Patient is Beth speaking. Son and daughter in law in the room helped with H&P. Patient recently returned from [facility]. Last night patient was feeling short of breath and complained of pain under left breast and also having some nausea and an episode of vomiting. She was also having some cough with bringing some phlegm. No fevers. No headache. In the ER she was hypoxic on nonrebreather and she was transitioned to BiPAP. Initially blood pressure high. After couple of nitroglycerin and IV labetalol blood pressure improved. No abdominal pain. Normal bowel and bladder movements. Denies any excess salt intake. Before this event patient was ambulating okay. Patient presented with similar episodes couple of years ago and at the time initially echo showed EF of 30 to 39% thought to be stress- induced cardiomyopathy and few days later repeat echo EF improved. As per family patient is compliant with her medications. Acute respiratory failure with hypoxia and hypercarbia Flash pulmonary edema Hypertensive urgency Acute CHF Continue BiPAP IV Lasix 40 mg twice daily Daily weights I's and O's Echo Telemetry Cardiology consult Close monitor Chest pain Initial troponin 44 Will follow repeat troponin Serial enzymes and echo Cardio consulted Close monitor Hypertensive urgency Improved with IV labetalol and nitro sublingual Continue home medications of losartan and metoprolol succinate IV labetalol as needed Hyponatremia Sodium 128 Getting IV Lasix Will follow BMP closely Serum osmolality, urine osmolality and urine sodium levels Nephrology consult Leukocytosis CTA chest multifocal bilateral pneumonia Empiric cefepime and Doxy Follow cultures UA is unremarkable Respiratory BioFire unremarkable Will follow procalcitonin Hyperlipidemia On statin Diabetes Hold metformin Sliding scale Will follow blood sugars and HbA1c levels GERD Continue omeprazole Iron deficiency anemia Follows with heme-onc Getting IV Venofer DVT prophylaxis Lovenox Disposition Telemetry Full code History of Present Illness Chief Complaint: Hypertensive urgency and acute CHF Primary Care Provider: Maritza Lyles MD 58-year-old female with past medical history significant for type 2 diabetes, hypertension, history of stress-induced cardiomyopathy, hyperlipidemia, GERD, iron deficiency anemia, generalized anxiety disorder presents with hypertensive urgency and acute CHF. Patient is Beth speaking. Son and daughter in law in the room helped with H&P. Patient recently returned from [facility]. Last night patient was feeling short of breath and complained of pain under left breast and also having some nausea and an episode of vomiting. She was also having some cough with bringing some phlegm. No fevers. No headache. In the ER she was hypoxic on nonrebreather and she was transitioned to BiPAP. Initially blood pressure high. After couple of nitroglycerin and IV labetalol blood pressure improved. No abdominal pain. Normal bowel and bladder movements. Denies any excess salt intake. Before this event patient was ambulating okay. Patient presented with similar episodes couple of years ago and at the time initially echo showed EF of 30 to 39% thought to be stress- induced cardiomyopathy and few days later repeat echo EF improved. As per family patient is compliant with her medications. Past medical history as mentioned above Past surgical history. Colonoscopy and EGD. Bilateral cataracts. Social history. . No smoking. No alcohol use. No drug use. Family history no family history on file Allergies Allergy/AdvReac Type Severity Reaction Status Date / Time No Known Allergies Allergy Verified 09/13/22 22:22 Home Medications Medication Instructions Recorded Confirmed Type aspirin 81 mg tablet,delayed 81 mg PO DAILY 05/01/24 05/01/24 History release atorvastatin 80 mg tablet 80 mg PO DAILY 05/01/24 05/01/24 History furosemide 20 mg tablet 20 mg PO DAILY 05/01/24 05/01/24 History losartan 50 mg tablet 50 mg PO DAILY 05/01/24 05/01/24 History metformin 500 mg tablet 1,000 mg PO BID 05/01/24 05/01/24 History metoprolol succinate 25 mg 25 mg PO DAILY 05/01/24 05/01/24 History tablet,extended release 24 hr omeprazole 40 mg capsule,delayed 40 mg PO BID 05/01/24 05/01/24 History release prednisolone acetate 1 % eye 1 drp OPL BID 05/01/24 05/01/24 History drops,suspension Past Med/Surg History Problem List (Updated 05/01/24 @ 04:49 by Anton Barrois M.D.) Chest pressure (Acute) Acute respiratory failure with hypoxia and hypercarbia (Acute) DMII (diabetes mellitus, type 2) Cardiomyopathy Acute systolic (congestive) heart failure Community acquired pneumonia Acute on chronic diastolic (congestive) heart failure Acute respiratory failure with hypoxia Acute respiratory distress (Acute) Hypertension (Acute) Pulmonary edema (Acute) Hypoxia (Acute) Tachycardia (Acute) Hyponatremia (Acute) Hypomagnesemia (Acute) Atypical chest pain Coronary artery disease (Acute) Non-ST elevation (NSTEMI) myocardial infarction Chest pain (Acute) Diastolic CHF with preserved left ventricular function, NYHA class 2 Hypertension (Acute) GERD (gastroesophageal reflux disease) (Acute) LBBB (left bundle branch block) (Acute) Hyperlipemia Hypertensive emergency (Acute) Elevated troponin I level (Acute) Acute on chronic heart failure with preserved ejection fraction (HFpEF) Respiratory failure (Acute) Acute pulmonary edema (Acute) Diabetes Medical History Coronary artery disease Hyperlipemia Hypertension Hypertensive emergency LBBB (left bundle branch block) Non-ST elevation (NSTEMI) myocardial infarction Social History Smoking Status: Never smoker Hx Alcohol Use: No Hx Substance Use: No Preferred Language: Beth Communication Ability: Effective Communication Tools: IPad and Language Line Grades 6 Through 8 Teacher Grades 6 Through 8 Teacher Required: Yes Beliefs That Will Affect Care: Yarsani Yarsani Beliefs: Shinto marital status: Current Living Situation: Spouse and Family Current Living Situation Comment: daughter, SCHUYLER, , grandchildren current occupational status: unemployed Feels Safe at Home: Yes Assistive Devices: None Review of Systems Review of Systems: All systems reviewed & are unremarkable except as noted in HPI & below Physical Exam Physical Exam: General- Not in acute distress Head- atraumatic Eyes- PERRL. ENT- oropharynx clear Neck- supple, no JVD. Lungs- clear to auscultation b/l crackles heard. no wheezing Heart- regular rhythm; tachycardia no murmur, no gallop. Abdomen- normal bowel sounds, soft, nontender, no distension Extremities- no pretibial edema, no erythema seen Neuro- alert, oriented PERRL, no facial palsy; no dysarthria; moves extremities. Skin- warm & dry Results & Data Results & Data Vital Signs (Past 12 Hours) Vital Signs Temp Pulse Resp BP Pulse Ox O2 Del Method FiO2 05/01/24 07:37 120 H 20 133/95 100 BiPAP 05/01/24 07:30 115 H 26 H 100 70 05/01/24 06:18 117 H 28 H 100 05/01/24 06:15 132/99 05/01/24 06:15 132/99 05/01/24 06:06 117 H 33 H 100 05/01/24 06:04 BiPAP 05/01/24 06:00 118/94 05/01/24 06:00 116 H 29 H 118/94 99 05/01/24 06:00 118/94 05/01/24 05:24 116 H 120/91 05/01/24 05:21 120/91 05/01/24 05:10 118/82 05/01/24 05:08 BiPAP 05/01/24 05:03 108 H 31 H 94 05/01/24 04:59 108/84 05/01/24 04:57 138 H 29 H 108/84 96 05/01/24 04:56 137 H 150/119 H 05/01/24 04:55 150/119 H 05/01/24 04:55 150/119 H 05/01/24 04:49 153/118 H 05/01/24 04:31 165/121 H 05/01/24 04:30 152 H 05/01/24 04:29 Room Air 05/01/24 04:27 153 H 34 H 75 L Room Air 05/01/24 04:24 153 H 39 H 85 L 05/01/24 04:22 192/164 H 05/01/24 04:22 192/164 H 05/01/24 04:22 192/164 H 05/01/24 04:20 139 H 33 H 99 70 05/01/24 04:06 36.5 C 149 H 39 H 189/151 H 80 L Room Air Diagnostic Findings Laboratory Results WBC 17.83 K/ul (4.8-10.8) H 05/01/24 04:22 RBC 5.75 M/uL (4.20-5.40) H 05/01/24 04:22 Hgb 14.1 g/dl (12.0-16.0) 05/01/24 04:22 POC Hgb 16.3 g/dl (12.0-16.0) H 05/01/24 04:24 Hct 45.4 % (37.0-47.0) 05/01/24 04:22 POC Hct 48 % (37-47) H 05/01/24 04:24 MCV 79.0 fL (80.0-100.0) L 05/01/24 04:22 MCH 24.5 pg (25.0-34.0) L 05/01/24 04:22 MCHC 31.1 g/dL (32.0-36.0) L 05/01/24 04:22 RDW Std Deviation 56.7 fL (36.4-46.3) H 05/01/24 04:22 RDW Coeff of [place] 20.6 % (11.5-14.5) H 05/01/24 04:22 Plt Count 469 K/uL (130-400) H 05/01/24 04:22 MPV 9.8 fL (9.4-12.4) 05/01/24 04:22 Immature Gran % (Auto) 0.8 % 05/01/24 04:22 Neut % (Auto) 53.3 % 05/01/24 04:22 Lymph % (Auto) 37.0 % 05/01/24 04:22 [place] % (Auto) 7.4 % 05/01/24 04:22 Eos % (Auto) 1.1 % 05/01/24 04:22 Baso % (Auto) 0.4 % 05/01/24 04:22 Neut # (Auto) 9.51 K/uL (1.40-6.50) H 05/01/24 04:22 Lymph # (Auto) 6.59 K/uL (1.20-3.40) H 05/01/24 04:22 [place] # (Auto) 1.32 K/uL (0.11-0.59) H 05/01/24 04:22 Eos # (Auto) 0.19 K/uL (0.00-0.50) 05/01/24 04:22 Baso # (Auto) 0.08 K/uL (0.00-0.20) 05/01/24 04:22 Immature Gran # (Auto) 0.14 K/uL (0.01-0.20) 05/01/24 04:22 RBC Morphology Unremarkable 05/01/24 04:22 PT 9.8 Seconds (9.0-12.0) 05/01/24 04:22 INR 0.9 (0.9-1.1) 05/01/24 04:22 APTT 27 Seconds (21-31) 05/01/24 04: PTT Ratio 1.0 05/01/24 04:22 VBG pH 7.20 (7.36-7.41) L 05/01/24 04:26 VBG pCO2 61 mmHg (38-50) H 05/01/24 04:26 VBG pO2 33 mmHg 05/01/24 04:26 VBG HCO3 24 mmol/L 05/01/24 04:26 VBG O2 Saturation < 60.0 % 05/01/24 04:26 VBG Base Excess -5.2 mEq/L 05/01/24 04:26 POC Sodium 131 mmol/L (135-144) L 05/01/24 04:24 Sodium 128 mmol/L (136-145) L 05/01/24 04:22 POC Potassium 4.2 mmol/L (3.3-5.0) 05/01/24 04:24 Potassium 4.4 mmol/L (3.5-5.1) 05/01/24 06:31 POC Chloride 96 mmol/L (101-112) L 05/01/24 04:24 Chloride 94 mmol/L (98-107) L 05/01/24 04:22 Carbon Dioxide 22 mmol/L (21-32) 05/01/24 04:22 POC Total CO2 24 mmol/L (24-31) 05/01/24 04:24 Anion Gap 12 (3-11) H 05/01/24 04:22 POC Anion Gap 16.0 mmol/L (16-25) 05/01/24 04:24 POC BUN 14 mg/dl (7-18) 05/01/24 04:24 BUN 13 mg/dl (6-23) 05/01/24 04:22 Creatinine 0.62 mg/dl (0.6-1.2) 05/01/24 04:22 POC Creatinine 0.6 mg/dl (0.6-1.3) 05/01/24 04:24 Est Cr Clr Drug Dosing 96.9 ml/min 05/01/24 04:22 Est GFR ( Amer) 114.4 ml/min 05/01/24 04:22 Est GFR (Non-Af Amer) 98.7 ml/min 05/01/24 04:22 BUN/Creatinine Ratio 21.0 (10-20) H 05/01/24 04:22 Glucose 173 mg/dl (70-99(Fasting)) H 05/01/24 04:22 POC Glucose (other) 173 mg/dl (70-99) H 05/01/24 04:24 Calcium 9.6 mg/dl (8.6-10.3) 05/01/24 04:22 POC Ioniz Calcium [place] 1.17 mmol/l (1.12-1.32) 05/01/24 04:24 Magnesium 1.6 mg/dl (1.7-2.4) L 05/01/24 04:22 Total Bilirubin 0.3 mg/dl (0.2-1.0) 05/01/24 04:22 AST 17 U/L (13-39) 05/01/24 06:31 ALT 23 U/L (7-52) 05/01/24 04:22 Alkaline Phosphatase 122 U/L (34-104) H 05/01/24 04:22 Troponin I High Sens 44.8 pg/ml (0-14) H 05/01/24 04:22 B-Natriuretic Peptide 61 pg/ml (0-100) 05/01/24 04:22 Total Protein 8.3 gm/dl (6.0-8.3) 05/01/24 04:22 Albumin 4.9 gm/dl (3.4-5.0) 05/01/24 04:22 Globulin 3.4 gm/dl (2.5-4.0) 05/01/24 04:22 Albumin/Globulin Ratio 1.4 (0.9-2) 05/01/24 04:22 Urine Color Yellow 05/01/24 05:19 Urine Appearance Clear (Clear) 05/01/24 05:19 Urine pH 7.0 (4.5-7.5) 05/01/24 05:19 Ur Specific [place] 1.035 (1.000-1.030) H 05/01/24 05:19 Urine Protein 2+ (Negative) H 05/01/24 05:19 Urine Glucose (UA) Negative (Negative) 05/01/24 05:19 Urine Ketones Negative (Negative) 05/01/24 05:19 Urine Blood Negative (Negative) 05/01/24 05:19 Urine Nitrite Negative (Negative) 05/01/24 05:19 Urine Bilirubin Negative (Negative) 05/01/24 05:19 Urine Urobilinogen Negative (Negative) 05/01/24 05:19 Ur Leukocyte Esterase Negative (Negative) 05/01/24 05:19 Urine WBC (Auto) 0-5 /hpf (0-5) 05/01/24 05:19 Urine RBC (Auto) 0-2 /hpf (0-2) 05/01/24 05:19 U Hyaline Cast (Auto) 0-2 /lpf (0-2) 05/01/24 05:19 U Epithel Cells (Auto) 0-2 /hpf (0-2) 05/01/24 05:19 Urine Bacteria (Auto) None Seen (None Seen) 05/01/24 05:19 Adenovirus (PCR) Not Detected (NotDetected) 05/01/24 04:22 B. pertussis DNA (PCR) Not Detected (NotDetected) 05/01/24 04:22 B.parapertussis DNA PCR Not Detected (NotDetected) 05/01/24 04:22 C. pneumoniae DNA (PCR) Not Detected (NotDetected) 05/01/24 04:22 Coronavirus OC43 (PCR) Not Detected (NotDetected) 05/01/24 04:22 Coronavirus HKU1 (PCR) Not Detected (NotDetected) 05/01/24 04:22 Coronavirus 229E (PCR) Not Detected (NotDetected) 05/01/24 04:22 SARS-CoV-2 (PCR) Not Detected (NotDetected) 05/01/24 04:22 Coronavirus NL63 (PCR) Not Detected (NotDetected) 05/01/24 04:22 Human Metapneumovir PCR Not Detected (NotDetected) 05/01/24 04:22 Influenza Type A (PCR) Not Detected (NotDetected) 05/01/24 04:22 Influenza Type B (PCR) Not Detected (NotDetected) 05/01/24 04:22 M. pneumoniae (PCR) Not Detected (NotDetected) 05/01/24 04:22 Parainfluenza 1 (PCR) Not Detected (NotDetected) 05/01/24 04:22 Parainfluenza 2 (PCR) Not Detected (NotDetected) 05/01/24 04:22 Parainfluenza 3 (PCR) Not Detected (NotDetected) 05/01/24 04:22 Parainfluenza 4 (PCR) Not Detected (NotDetected) 05/01/24 04:22 RSV (PCR) Not Detected (NotDetected) 05/01/24 04:22 Entero/Rhino (PCR) Not Detected (NotDetected) 05/01/24 04:22 Impressions Chest CTA 05/01/24 04:20 Exam(s): CTA CHEST IV Amt: 118 ML OPTIRAY 320 EXAM: CT Angiography Chest With Intravenous Contrast CLINICAL HISTORY: Dyspnea, hypoxic, travel. TECHNIQUE: Axial computed tomographic angiography images of the chest with intravenous contrast. CTDI is 25.53 mGy and DLP is 801.99 mGy-cm. Automated exposure control was utilized for the study. A dose lowering technique was utilized adhering to the principles of ALARA. 3D and MIP reconstructed images were created and reviewed. COMPARISON: Chest x-ray 05-01-2024, CT chest 09/14/2022 and 07/29/2021 FINDINGS: Pulmonary arteries: No pulmonary embolism. Aorta: No thoracic aortic aneurysm or dissection. Lungs: Diffuse bilateral patchy infiltrates, most severe in the bilateral lower lobes and right upper lobe. Pleural space: No pleural effusion. No pneumothorax. Heart: Mild cardiomegaly. No pericardial effusion. No evidence of RV dysfunction. Coronary artery atherosclerotic calcifications. Bones/joints: No acute fracture. Degenerative changes of the spine. Soft tissues: Unremarkable. Lymph nodes: Unremarkable. No enlarged lymph nodes. IMPRESSION: No pulmonary embolism. Multifocal bilateral pneumonias. Electronically signed by: Ar Davidson M.D. 05/01/24 05:53 AM Chest X-Ray 05/01/24 04:20 XR chest 1V portable HISTORY: 58 years-old Female Dyspnea acute shortness of breath COMPARISON: CTA chest of same day TECHNIQUE: AP view of the chest FINDINGS: Cardiac silhouette is upper limits of normal in size. There is no pneumothorax. Trace pleural effusions. Pulmonary vascular congestion with mid to lower lung zone predominant multifocal airspace opacities. Reticular interstitial densities also noted. Bones appear grossly intact. IMPRESSION: 1. Mixed interstitial and alveolar opacities with consolidation most pronounced in the right mid lung and right lung base. Findings may represent pulmonary edema versus multifocal pneumonia. 2. Trace pleural effusions. ACT 112: Negative or not required by law. The above report was generated using voice recognition software. It may contain grammatical, syntax or spelling errors. Electronically signed by: Jose Banks M.D. 05/01/2024 6:49 AM ECG Additional Comments: ECG. Sinus tach rate of 157. Left bundle branch block Code Status & VTE Plan VTE Prophylaxis Plan VTE Prophylaxis will be ordered: Yes
[2024-05-01] MEDS ORDERED: ACETAMINOPHEN 325 MG TAB PO PRN (08:29)
[2024-05-01] MEDS ORDERED: DEXTROSE 50% 50 ML SYRINGE IV PRN (08:29)
[2024-05-01] MEDS ORDERED: GLUCOSE 10 TAB/TUBE PO PRN (08:29)
[2024-05-01] MEDS ORDERED: CARBOHYDRATES FOR HYPOGLYCEMIA PO PRN (08:29)
[2024-05-01] MEDS ORDERED: GLUCOSE 40% GEL 15 GM TUBE PO PRN (08:29)
[2024-05-01] MEDS ORDERED: GLUCAGON FOR INJ 1 MG VIAL SQ PRN (08:29)
[2024-05-01] MEDS ORDERED: ONDANSETRON INJ 2 MG/ML 2 ML VIAL IV PRN (08:29)
--- NOTE | 2024-05-01 08:50 | Cardiology Consultation ---
Date of Consultation May 01, 2024 Assessment & Plan (1) Acute respiratory failure with hypoxia: (2) Acute systolic (congestive) heart failure: (3) Non-ST elevation (NSTEMI) myocardial infarction: (4) Hypertension: (5) Tachycardia: (6) Community acquired pneumonia: Plan Assessment: 58 year old female presents in acute respiratory distress with evidence of acute heart failure as well as suspected pneumonia with further imaging. Plan: -Patient's respiratory status improved at the time of examination. -acute respiratory failure in the setting of evidence of acute heart failure and pneumonia. -Patient carries a history of stress induced cardiomyopathy in her past with a prior cardiac cath in 2020 which demonstrated branch vessel disease involving the first and second diagonal as follows: Coronary Anatomy Dominant: Left Left Main (% Stenosis): Normal LAD (% Stenosis): Proximal (20%), Mid (20%) and Distal (20%) D1 (% Stenosis): Ostial (50%) D2 (% Stenosis): Ostial (70%) Circumflex (% Stenosis): Mid (30%) and Distal (10%) OM1 (% Stenosis): Normal (1.5mm vessel) OM2 (% Stenosis): Normal L PL1 (% Stenosis): Normal L PL2 (% Stenosis): Normal L PDA (% Stenosis): Proximal (30%) RCA (% Stenosis): Proximal (20%) Ramus (% Stenosis): Normal (small vessel) -Patient is also notably hypertensive which is likely multifactorial and can be contributing to her abnormal echo findings. -Tachycardic (with presence of a Left BBB) upon review on telemetry in the setting of acute respiratory distress and an acute infectious process. -High sensitivity troponin 614.4 and 685.7. Trend to peak. -At this time continue ASA 81mg, Atorvastatin 80mg, Losartan 50mg daily and Toprol xl 25mg BID. -Continued Antibiotics for pneumonia as per management of primary team. -Will discuss echocardiogram findings as well as prior cath with Dr. Chao Case has been discussed with Dr. Chao. Further recommendations regarding plan of care as per his assessment. I spent a total of 40 minutes on the date of service in preparation, delivery, documentation of the care provided to the patient excluding any time spent in the performance of separately billed services. NICCI López [facility] Cardiology [facility] Supervising Physician Co-Signing Physician Notes See additional full documentation under consultation History of Present Illness Reason for Consultation: Acute CHF Requesting Physician: Reji draper Attending Physician: Fox Kwok MD History of Present Illness HPI: Patient is a 58 year old female with PMHx significant for stress induced cardiomyopathy, HTN, HLD, GERD, MILEY, DM Type II, and NEELAM. Patient's primary language is Beth. Daughter is present and able to translate per patient's request. patient had returned from a recent trip to [facility], and last night developed feeling of shortness of breath, nausea, a isolated vomiting episode. She was brought to the ED, found to be hypoxic, initially placed on a NRB, but transitioned to Bipap which is now off of patient at time of exam. Denies any chest pain, pressure or palpitations. Endorses dyspnea, but significant improvement since arrival at the hospital. No pre-syncope, syncope or edema. Denies any missed medications and no dietary indiscretion. Initial EKG on admission demonstrates ST, poor quality tracing, presence of a Left BBB, Rate 157bpm. Chest xray: IMPRESSION: 1. Mixed interstitial and alveolar opacities with consolidation most pronounced in the right mid lung and right lung base. Findings may represent pulmonary edema versus multifocal pneumonia. 2. Trace pleural effusions. Chest CT: IMPRESSION: No pulmonary embolism. Multifocal bilateral pneumonias. Review of telemetry shows ST rates 120's. Patient for echocardiogram today Allergies Allergy/AdvReac Type Severity Reaction Status Date / Time No Known Allergies Allergy Verified 09/13/22 22:22 Home Medications Medication Instructions Recorded Confirmed Type aspirin 81 mg tablet,delayed 81 mg PO DAILY 05/01/24 05/01/24 History release atorvastatin 80 mg tablet 80 mg PO DAILY 05/01/24 05/01/24 History furosemide 20 mg tablet 20 mg PO DAILY 05/01/24 05/01/24 History losartan 50 mg tablet 50 mg PO DAILY 05/01/24 05/01/24 History metformin 500 mg tablet 1,000 mg PO BID 05/01/24 05/01/24 History metoprolol succinate 25 mg 25 mg PO DAILY 05/01/24 05/01/24 History tablet,extended release 24 hr omeprazole 40 mg capsule,delayed 40 mg PO BID 05/01/24 05/01/24 History release prednisolone acetate 1 % eye 1 drp OPL BID 05/01/24 05/01/24 History drops,suspension Patient History Medical History Coronary artery disease Hyperlipemia Hypertension Hypertensive emergency LBBB (left bundle branch block) Non-ST elevation (NSTEMI) myocardial infarction Social History Smoking Status: Never smoker Hx Alcohol Use: No Hx Substance Use: No Preferred Language: Beth Communication Ability: Effective Communication Tools: IPad and Language Line Boss Dyer Boss Dyer Required: Yes Beliefs That Will Affect Care: Synagogue Synagogue Beliefs: Vegetarian, no eggs, meat products, okay with dairy. marital status: Current Living Situation: Spouse and Family Current Living Situation Comment: daughter, SCHUYLER, , grandchildren current occupational status: unemployed Other Information That Helps Us Care for You: No Feels Safe at Home: Yes Safety Concerns: Feels Safe At This Time Assistive Devices: None Review of Systems Review of Systems: All systems reviewed & are unremarkable except as noted in HPI & below Physical Exam Constitutional: well developed, well nourished and + ill appearing Neck: normal visual inspection and trachea midline Respiratory: normal respiratory effort and + cough; no respiratory distress and no labored breathing Auscultation: + diminished lung sounds and + crackles (Right lower lobe ); no rales, no rhonchi and no wheezes Cardiovascular: Rate/Rhythm: + tachycardic Heart Sounds: normal S1, normal S2 and + murmur (+1/6 systolic ) Vessels: dorsalis pedis pulses present; no JVD Extremities: no edema Skin: no rashes, warm and dry Psychiatric: A+Ox3, euthymic affect Results & Data Vital Signs (Past 12 Hours) Vital Signs Temp Pulse Resp BP Pulse Ox O2 Del Method FiO2 05/01/24 07:37 120 H 20 133/95 100 BiPAP 05/01/24 07:30 115 H 26 H 100 70 05/01/24 06:18 117 H 28 H 100 05/01/24 06:15 132/99 05/01/24 06:15 132/99 05/01/24 06:06 117 H 33 H 100 05/01/24 06:04 BiPAP 05/01/24 06:00 118/94 05/01/24 06:00 116 H 29 H 118/94 99 05/01/24 06:00 118/94 05/01/24 05:24 116 H 120/91 05/01/24 05:21 120/91 05/01/24 05:10 118/82 05/01/24 05:08 BiPAP 05/01/24 05:03 108 H 31 H 94 05/01/24 04:59 108/84 05/01/24 04:57 138 H 29 H 108/84 96 05/01/24 04:56 137 H 150/119 H 05/01/24 04:55 150/119 H 05/01/24 04:55 150/119 H 05/01/24 04:49 153/118 H 05/01/24 04:31 165/121 H 05/01/24 04:30 152 H 05/01/24 04:29 Room Air 05/01/24 04:27 153 H 34 H 75 L Room Air 05/01/24 04:24 153 H 39 H 85 L 05/01/24 04:22 192/164 H 05/01/24 04:22 192/164 H 05/01/24 04:22 192/164 H 05/01/24 04:20 139 H 33 H 99 70 05/01/24 04:06 36.5 C 149 H 39 H 189/151 H 80 L Room Air Laboratory Results Cardiac Enzymes 05/01/24 05/01/24 Range/Units 04:22 06:31 AST TNP 17 Troponin I High Sens 44.8 H Cancelled (0-14) pg/ml B-Natriuretic Peptide 61 (0-100) pg/ml Coagulation 05/01/24 Range/Units 04:22 PT 9.8 (9.0-12.0) Seconds APTT 27 (21-31) Seconds B-Natriuretic Peptide 61 (0-100) pg/ml CBC 05/01/24 Range/Units 04:22 WBC 17.83 H (4.8-10.8) K/ul RBC 5.75 H (4.20-5.40) M/uL Hgb 14.1 (12.0-16.0) g/dl Hct 45.4 (37.0-47.0) % Plt Count 469 H (130-400) K/uL Neut # (Auto) 9.51 H (1.40-6.50) K/uL Lymph # (Auto) 6.59 H (1.20-3.40) K/uL Hudson # (Auto) 1.32 H (0.11-0.59) K/uL Eos # (Auto) 0.19 (0.00-0.50) K/uL Baso # (Auto) 0.08 (0.00-0.20) K/uL Comprehensive Metabolic Panel 05/01/24 05/01/24 Range/Units 04:22 06:31 Sodium 128 L (136-145) mmol/L Potassium TNP 4.4 Chloride 94 L (98-107) mmol/L Carbon Dioxide 22 (21-32) mmol/L BUN 13 (6-23) mg/dl Creatinine 0.62 (0.6-1.2) mg/dl Glucose 173 H (70-99(Fasting)) mg/dl Calcium 9.6 (8.6-10.3) mg/dl AST TNP 17 ALT 23 (7-52) U/L Alkaline Phosphatase 122 H (34-104) U/L Total Protein 8.3 (6.0-8.3) gm/dl Albumin 4.9 (3.4-5.0) gm/dl Intake and Output 04/30/24 05/01/24 05/01/24 22:59 06:59 14:59 Intake Total 100 / 100 Balance 100 / 100 Intake: IV 100 / 100 Magnesium Sulfate / D5w 1 gm In 100 / 100 100 ml @ 100 mls/hr IV NOW STA Rx#:[id number] Other: Weight 85.3 kg Weight Measurement Method Chair Scale Diagnostic Findings Echocardiogram 05/01/2024: Sinus Tachycardia with study of fair technical quality LV normal in size Moderate to severe concentric LV Hypertrophy Septal wall motion is consistent with conduction abnormality There is moderate to severe global hypokinesis of the LV Basilar structures contract normally with mild expansion of apex LVEF 30-35% Aortic valve sclerosis moderate, without significant aortic valvular stenosis there is mild mitral regurgitation. (4) Hypertension Hypertension type: unspecified Qualified Code(s): I10 - Essential (primary) hypertension
[2024-05-01] MEDS: INSULIN ASPART PER UNIT CHARGE SC SCH ×2 (08:51→16:51)
[2024-05-01] MEDS: FUROSEMIDE 40 MG/4 ML VIAL IV ONE (08:57)
[2024-05-01] MEDS: DOXYCYCLINE HYCLATE 100 MG in DEXTROSE 5% MINI-B 100 ML IV SCH (09:37)
[2024-05-01] MEDS: PANTOprazole 40 MG TAB PO SCH (09:39)
[2024-05-01] MEDS: METOPROLOL SUCC 25MG EXT REL TAB PO SCH ×2 (09:39→20:45)
[2024-05-01] MEDS: prednisoLONE acetate 1% OP SUSP 5 ML BTL OPL SCH (09:39)
[2024-05-01] MEDS: ATORVASTATIN 40 MG TAB PO SCH (09:39)
[2024-05-01] MEDS: LOSARTAN POTASSIUM 50 MG TAB PO SCH (09:39)
[2024-05-01] MEDS: ASPIRIN 81 MG ECTAB PO SCH (09:39)
[2024-05-01] MEDS: ENOXAPARIN INJ 40 MG/0.4 ML SYR SQ SCH (09:40)
--- NOTE | 2024-05-01 10:47 | Electrocardiogram Report ---
Test Reason : Blood Pressure : */* mmHG Vent. Rate : 157 BPM Atrial Rate : 159 BPM P-R Int : 128 ms QRS Dur : 130 ms QT Int : 290 ms P-R-T Axes : * 39 105 degrees QTcB Int : 468 ms Sinus tachycardia Left bundle branch block Abnormal ECG When compared with ECG of 15-Sep-2022 03:30, Vent. rate has increased by 71 bpm Left bundle branch block has replaced Non-specific intra-ventricular conduction block Minimal criteria for Anteroseptal infarct are no longer Present Confirmed by Joseph Luna ([id number]) on 05/01/2024 10:47:17 AM Referred By: Confirmed By: Joseph Luna
[2024-05-01 11:12] LABS: Allen Test Pos (Pos); Base Excess ABG -0.3 mEq/L (-9-1.8); HCO3 ABG 24 mmol/L (19-24); Oxygen Saturation ABG 96.8 % (90-95); PCO2 ABG 38 mmHg (35-46); PO2 ABG 79 mmHg (80-95); pH ABG 7.41 (7.35-7.45)
[2024-05-01 11:34] LABS: BUN Creatinine Ratio 19.4 (10-20); Calcium 9.2 mg/dl (8.6-10.3); Creatinine Clr Calc Pharmacy 96.9 ml/min; Est GFR (African American) 114.4 ml/min; Est GFR (Non-African American) 98.7 ml/min; Magnesium 1.7 mg/dl (1.7-2.4); Potassium 4.1 mmol/L (3.5-5.1)
[2024-05-01 11:45] LABS: Troponin I High Sensitivity 685.7 pg/ml (0-14)
--- NOTE | 2024-05-01 11:56 | Nephrology Consultation ---
Date of Consultation May 01, 2024 Assessment & Plan (1) Hyponatremia: Patient with hyponatremia due to syndrome of inappropriate ADH. Sodium 129 this morning. Urine osmolality is 434 and urine sodium of 36. She is making urine. Will stop Lasix given ongoing sepsis. Continue to monitor sodium once daily. Will start urea when patient started taking p.o. Likely tomorrow (2) Hypertension: Blood pressure was high on admission but has now improved continue current antibiotics chills. Low threshold to stop losartan as patient is high risk for FCO with sepsis and recent contrast (3) Acute respiratory failure with hypoxia and hypercarbia: Patient with bilateral mild focal pneumonia. She is getting cefepime and doxycycline. Will check Legionella antigen. Will follow cultures. History of Present Illness Reason for Consultation: Hyponatremia Requesting Physician: Fox Kwok MD Attending Physician: Fox Kwok MD History of Present Illness This is 58-year-old female with history of hypertension, hyperlipidemia, type 2 diabetes, NEELAM and normal renal function at baseline who was admitted with shortness of breath and chest pain. She had just returned from [place] and started complaining of cough and chest pain. Chest x-ray notable for bilateral patchy infiltrates and CT chest with contrast revealed no pulmonary embolism but bilateral multifocal pneumonias. Patient is receiving cefepime and doxycycline. Her white count is downtrending. She was also noted to have hyponatremia with a sodium of 128 and this has fluctuated to 131 but again down to 129 this morning. She feels a little better she still has right hypochondrial pain. She has mild abdominal pain. No nausea or vomiting. Allergies Allergy/AdvReac Type Severity Reaction Status Date / Time No Known Allergies Allergy Verified 09/13/22 22:22 Home Medications Medication Instructions Recorded Confirmed Type aspirin 81 mg tablet,delayed 81 mg PO DAILY 05/01/24 05/01/24 History release atorvastatin 80 mg tablet 80 mg PO DAILY 05/01/24 05/01/24 History furosemide 20 mg tablet 20 mg PO DAILY 05/01/24 05/01/24 History losartan 50 mg tablet 50 mg PO DAILY 05/01/24 05/01/24 History metformin 500 mg tablet 1,000 mg PO BID 05/01/24 05/01/24 History metoprolol succinate 25 mg 25 mg PO DAILY 08/13/24 08/13/24 History tablet,extended release 24 hr omeprazole 40 mg capsule,delayed 40 mg PO BID 05/01/24 05/01/24 History release prednisolone acetate 1 % eye 1 drp OPL BID 05/01/24 05/01/24 History drops,suspension Patient History Medical History Coronary artery disease Hyperlipemia Hypertension Hypertensive emergency LBBB (left bundle branch block) Non-ST elevation (NSTEMI) myocardial infarction Social History Smoking Status: Never smoker Hx Alcohol Use: No Hx Substance Use: No Preferred Language: Beth Communication Ability: Effective Communication Tools: IPad and Language Line Supervisor Electric Supervisor Electric Required: Yes Beliefs That Will Affect Care: Confucianist Confucianist Beliefs: Vegetarian, no eggs, meat products, okay with dairy. marital status: Current Living Situation: Spouse and Family Current Living Situation Comment: daughter, SCHUYLER, , grandchildren current occupational status: unemployed Other Information That Helps Us Care for You: No Feels Safe at Home: Yes Safety Concerns: Feels Safe At This Time Assistive Devices: None Review of Systems 2 Review of Systems: All other systems were reviewed and negative except as noted in HPI Physical Exam 2 Physical Exam: General exam: Appears comfortable, no acute distress HEENT: Pupils are equal and reactive to light Neck: No JVD, neck is supple trachea is midline Respiratory system: Clear breath sounds bilaterally. Gastrointestinal: Abdomen is soft, non distended, non tender, bowel sounds are present CVS: Regular rate and rhythm. No murmurs, rubs or gallops Musculoskeletal: No joint or muscle tenderness Extremities: Non tender, no edema, peripheral pulses are present Neuro: Oriented, no tremors, no focal neurological deficits Skin: No rashes Results & Data Vital Signs (Past 12 Hours) Vital Signs Temp Pulse Resp BP Pulse Ox Pulse Ox O2 Del Method 05/01/24 09:00 Nasal Cannula 05/01/24 08:29 92 05/01/24 07:37 120 H 20 133/95 100 BiPAP 05/01/24 07:30 115 H 26 H 100 05/01/24 06:18 117 H 28 H 100 05/01/24 06:15 132/99 05/01/24 06:15 132/99 05/01/24 06:06 117 H 33 H 100 05/01/24 06:04 BiPAP 05/01/24 06:00 118/94 05/01/24 06:00 116 H 29 H 118/94 99 05/01/24 06:00 118/94 05/01/24 05:24 116 H 120/91 05/01/24 05:21 120/91 05/01/24 05:10 118/82 05/01/24 05:08 BiPAP 05/01/24 05:03 108 H 31 H 94 05/01/24 04:59 108/84 05/01/24 04:57 138 H 29 H 108/84 96 05/01/24 04:56 137 H 150/119 H 05/01/24 04:55 150/119 H 05/01/24 04:55 150/119 H 05/01/24 04:49 153/118 H 05/01/24 04:31 165/121 H 05/01/24 04:30 152 H 05/01/24 04:29 Room Air 05/01/24 04:27 153 H 34 H 75 L Room Air 05/01/24 04:24 153 H 39 H 85 L 05/01/24 04:22 192/164 H 05/01/24 04:22 192/164 H 05/01/24 04:22 192/164 H 05/01/24 04:20 139 H 33 H 99 05/01/24 04:06 36.5 C 149 H 39 H 189/151 H 80 L Room Air O2 Del Method O2 Flow Rate FiO2 05/01/24 09:00 6 05/01/24 08:29 Nasal Cannula 05/01/24 07:37 05/01/24 07:30 70 05/01/24 06:18 05/01/24 06:15 05/01/24 06:15 05/01/24 06:06 05/01/24 06:04 05/01/24 06:00 05/01/24 06:00 05/01/24 06:00 05/01/24 05:24 05/01/24 05:21 05/01/24 05:10 05/01/24 05:08 05/01/24 05:03 05/01/24 04:59 05/01/24 04:57 05/01/24 04:56 05/01/24 04:55 05/01/24 04:55 05/01/24 04:49 05/01/24 04:31 05/01/24 04:30 05/01/24 04:29 05/01/24 04:27 05/01/24 04:24 05/01/24 04:22 05/01/24 04:22 05/01/24 04:22 05/01/24 04:20 70 05/01/24 04:06 Laboratory Results 05/01/24 11:05 05/01/24 04:22 WBC 17.83 H RBC 5.75 H MCV 79.0 L MCH 24.5 L MCHC 31.1 L RDW Std Deviation 56.7 H RDW Coeff of Roma 20.6 H Plt Count 469 H MPV 9.8 Albumin 4.9 (2) Hypertension Hypertension type: unspecified Qualified Code(s): I10 - Essential (primary) hypertension
[2024-05-01] MEDS: CEFEPIME 2,000 MG in SYRINGE 0 ML IV SCH (12:11)
[2024-05-01] MEDS ORDERED: ALUMINUM/MAGNESIUM/SIMETH (MAALOX MAX) 30 ML UDC PO PRN (12:14)
--- NOTE | 2024-05-01 12:59 | Electrocardiogram Report ---
Test Reason : Blood Pressure : */* mmHG Vent. Rate : 112 BPM Atrial Rate : 112 BPM P-R Int : 154 ms QRS Dur : 132 ms QT Int : 352 ms P-R-T Axes : 67 -12 121 degrees QTcB Int : 480 ms Sinus tachycardia Left bundle branch block Abnormal ECG When compared with ECG of 01-May-2024 04:20, ST less elevated in Anterior leads T wave inversion more evident in Lateral leads Confirmed by Joseph Luna ([id number]) on 05/01/2024 12:58:45 PM Referred By: REFERRED SELF Confirmed By: Joseph Luna
--- NOTE | 2024-05-01 13:31 | Cardiology Consultation ---
Date of Consultation May 01, 2024 Assessment & Plan (1) Acute respiratory failure with hypoxia and hypercarbia: (2) Cardiomyopathy: (3) LBBB (left bundle branch block): (4) Hypertensive emergency: Plan Patient is a 58-year-old female with past history of acute pulmonary edema in association with stress mediated/hypertensive urgency mediated apical ballooning cardiomyopathy. Chronic left bundle branch block present Presents now with acute respiratory distress with hypercapnia and hypoxia. Chest x-ray consistent with pulmonary edema with possible superimposed pneumonia Troponins elevated but flat Echocardiogram similar to prior studies during acute illnesses with normally beverly basilar segments, markedly dyssynergy interventricular septum consistent with left bundle branch block and severe diffuse hypokinesis greatest in the apex. Findings suggestive of stress mediated apical cardiomyopathy with pulmonary edema Prior cardiac catheterization for similar complaints without profound obstruction Patient currently being treated for possible sepsis and pneumonia as well Plan: 1. Acute pulmonary edema possible stress mediated cardiomyopathy with marked hypertensive urgency Patient responded very promptly to BiPAP supplementation and IV diuretics with brisk diuresis of greater than 2 L. Will increase metoprolol succinate to 25 mg twice per day for further heart rate and catecholamine mediated concerns Hold losartan but likely resume at lower dose depending on pressure response. Blood pressure now lower following diuresis Any new symptoms would initiate IV anticoagulation for 24 to 48 hours Currently asymptomatic and comfortable improving clinically. No indications for urgent cardiac catheterization Cardiology will follow History of Present Illness Reason for Consultation: Acute pulmonary edema, hypertensive urgency Requesting Physician: Dr. Kwok Attending Physician: Fox Kwok MD History of Present Illness Patient is a 58-year-old Southern female whose ongoing and past history is notable for 1. Stress mediated apical cardiomyopathy [id number], August 2022 with associated acute pulmonary edema 2. Labile hypertension 3. Chronic left bundle branch block 4. Cardiac catheterization 2020 mild nonobstructive branch vessel coronary artery disease LAD diagonals 5. Hyperlipidemia Patient examined in the presence of [id number] who aids in translation ([facility]) Patient presents this admission noting having developed acutely worsening dyspnea last evening culminating in marked respiratory distress No overt precipitants. Does note recent travel. Chest heaviness when markedly dyspneic but no acute chest pains, tachypalpitations. Blood pressures markedly elevated on presentation. Family feels patient has been compliant with medication No overt productive cough no bleeding issues possible low-grade chills no fevers Allergies Allergy/AdvReac Type Severity Reaction Status Date / Time No Known Allergies Allergy Verified 09/13/22 22:22 Home Medications Medication Instructions Recorded Confirmed Type aspirin 81 mg tablet,delayed 81 mg PO DAILY 05/01/24 05/01/24 History release atorvastatin 80 mg tablet 80 mg PO DAILY 05/01/24 05/01/24 History furosemide 20 mg tablet 20 mg PO DAILY 05/01/24 05/01/24 History losartan 50 mg tablet 50 mg PO DAILY 05/01/24 05/01/24 History metformin 500 mg tablet 1,000 mg PO BID 05/01/24 05/01/24 History metoprolol succinate 25 mg 25 mg PO DAILY 05/01/24 05/01/24 History tablet,extended release 24 hr omeprazole 40 mg capsule,delayed 40 mg PO BID 05/01/24 05/01/24 History release prednisolone acetate 1 % eye 1 drp OPL BID 05/01/24 05/01/24 History drops,suspension Patient History Medical History Coronary artery disease Hyperlipemia Hypertension Hypertensive emergency LBBB (left bundle branch block) Non-ST elevation (NSTEMI) myocardial infarction Social History Smoking Status: Never smoker Hx Alcohol Use: No Hx Substance Use: No Preferred Language: Beth Communication Ability: Effective Communication Tools: IPad and Language Line Hand Etcher Hand Etcher Required: Yes Beliefs That Will Affect Care: Mormon Mormon Beliefs: Vegetarian, no eggs, meat products, okay with dairy. marital status: Current Living Situation: Spouse and Family Current Living Situation Comment: daughter, SCHUYLER, , grandchildren current occupational status: unemployed Other Information That Helps Us Care for You: No Feels Safe at Home: Yes Safety Concerns: Feels Safe At This Time Assistive Devices: None Physical Exam Constitutional: no acute distress Eyes: PERRL, conjunctivae normal, anicteric sclerae ENMT: external ear and nose normal, oropharynx normal Neck: trachea midline, no thyromegaly Respiratory: Auscultation: + diminished lung sounds, + crackles and + rales Cardiovascular: Rate/Rhythm: regular rate, regular rhythm and + tachycardic Vessels: no JVD Extremities: no edema Gastrointestinal (Abdomen): normal bowel sounds, soft, nontender, no hepatosplenomegaly Musculoskeletal: no cyanosis or clubbing, extremities motor strength 5/5 Results & Data Vital Signs (Past 12 Hours) Vital Signs Temp Pulse Resp BP BP Pulse Ox Pulse Ox 05/01/24 11:55 36.7 C 20 109/75 96 05/01/24 09:00 122 H 05/01/24 09:00 05/01/24 08:29 92 05/01/24 07:37 120 H 20 133/95 100 05/01/24 07:30 115 H 26 H 100 05/01/24 06:18 117 H 28 H 100 05/01/24 06:15 132/99 05/01/24 06:15 132/99 05/01/24 06:06 117 H 33 H 100 05/01/24 06:04 05/01/24 06:00 118/94 05/01/24 06:00 116 H 29 H 118/94 99 05/01/24 06:00 118/94 05/01/24 05:24 116 H 120/91 05/01/24 05:21 120/91 05/01/24 05:10 118/82 05/01/24 05:08 05/01/24 05:03 108 H 31 H 94 05/01/24 04:59 108/84 05/01/24 04:57 138 H 29 H 108/84 96 05/01/24 04:56 137 H 150/119 H 05/01/24 04:55 150/119 H 05/01/24 04:55 150/119 H 05/01/24 04:49 153/118 H 05/01/24 04:31 165/121 H 05/01/24 04:30 152 H 05/01/24 04:29 05/01/24 04:27 153 H 34 H 75 L 05/01/24 04:24 153 H 39 H 85 L 05/01/24 04:22 192/164 H 05/01/24 04:22 192/164 H 05/01/24 04:22 192/164 H 05/01/24 04:20 139 H 33 H 99 05/01/24 04:06 36.5 C 149 H 39 H 189/151 H 80 L O2 Del Method O2 Del Method O2 Flow Rate FiO2 05/01/24 11:55 Nasal Cannula 4 05/01/24 09:00 05/01/24 09:00 Nasal Cannula 6 05/01/24 08:29 Nasal Cannula 05/01/24 07:37 BiPAP 05/01/24 07:30 70 05/01/24 06:18 05/01/24 06:15 05/01/24 06:15 05/01/24 06:06 05/01/24 06:04 BiPAP 05/01/24 06:00 05/01/24 06:00 05/01/24 06:00 05/01/24 05:24 05/01/24 05:21 05/01/24 05:10 05/01/24 05:08 BiPAP 05/01/24 05:03 05/01/24 04:59 05/01/24 04:57 05/01/24 04:56 05/01/24 04:55 05/01/24 04:55 05/01/24 04:49 05/01/24 04:31 05/01/24 04:30 05/01/24 04:29 Room Air 05/01/24 04:27 Room Air 05/01/24 04:24 05/01/24 04:22 05/01/24 04:22 05/01/24 04:22 05/01/24 04:20 70 05/01/24 04:06 Room Air
--- NOTE | 2024-05-01 16:40 | Hospitalist Progress Note ---
Date of Service May 01, 2024 Assessment & Plan (1) Acute respiratory failure with hypoxia and hypercarbia: Plan: 58-year-old female with past medical history significant for type 2 diabetes, hypertension, history of stress-induced cardiomyopathy, hyperlipidemia, GERD, iron deficiency anemia, generalized anxiety disorder presents with hypertensive urgency and acute CHF. Patient is Beth speaking. Son and daughter in law in the room helped with H&P. Patient recently returned from [facility]. Last night patient was feeling short of breath and complained of pain under left breast and also having some nausea and an episode of vomiting. She was also having some cough with bringing some phlegm. No fevers. No headache. In the ER she was hypoxic on nonrebreather and she was transitioned to BiPAP. Initially blood pressure high. After couple of nitroglycerin and IV labetalol blood pressure improved. No abdominal pain. Normal bowel and bladder movements. Denies any excess salt intake. Before this event patient was ambulating okay. Patient presented with similar episodes couple of years ago and at the time initially echo showed EF of 30 to 39% thought to be stress- induced cardiomyopathy and few days later repeat echo EF improved. As per family patient is compliant with her medications. Acute respiratory failure with hypoxia and hypercarbia Flash pulmonary edema Hypertensive emergency Likely stress-induced cardiomyopathy Suspected multifocal pneumonia Chronic left bundle branch block --CTA:No pulmonary embolism. Multifocal bilateral pneumonias. --ECHO: Moderate to severe concentric LVH. Septal motion is consistent with conduction abnormality. Moderate to severe global hypokinesis of the left ventricle. Basilar structures contract normally with mild expansion of apex. EF 30 to 35%. Aortic valve sclerosis moderate, without significant aortic valvular stenosis. Mild mitral regurgitation. --Normal procalcitonin --Urine for Legionella pending --Blood culture pending Diuresed well with IV Lasix and BiPAP use Metoprolol succinate dose increased to 25 mg BID Hold losartan for now per cardiology Appreciate cardiology input Further IV diuresis to be determined No plan for cardiac catheterization Empirically on IV cefepime, Doxy Monitor volume status, I's and O's, daily weight Monitor and replete electrolytes as needed Continue supplemental oxygen as needed Low threshold to start IV anticoagulation Monitor and adjust antihypertensives as needed Chest pain Secondary to above Troponin elevation likely demand ischemia secondary to above Echo as above Cardiology on board Hyponatremia Likely SIADH Monitor sodium levels closely Sodium 129 today Appreciate nephrology input Hypomagnesemia Monitor and replete electrolytes as needed Hyperlipidemia Continue Lipitor DM II Hold metformin Update HbA1c Continue insulin while hospitalized Monitor BGs GERD Continue PPI Iron deficiency anemia Follows with heme-onc Received IV Venofer previously Monitor CBC DVT Px: Lovenox SQ CODE STATUS Full code Admission and Anticipated Discharge Date Admission Date: May 01, 2024 Subjective Patient is seen and examined at bedside Dyspnea, chest tightness, cough slowly improving Also reports some abdominal discomfort improving as well Discussed with patient's family at bedside Also discussed with nephrology and cardiology today Reports bloating Also states having some cough with expectoration No other complaints Review of Systems Review of Systems: All systems reviewed & are unremarkable except as noted in Subjective Physical Exam Physical Exam: Physical Exam: Vitals signs as noted above General Appearance:Obese, no apparent distress Head: normocephalic, Atraumatic Eyes: normal inspection, EOMI Neck: supple, Trachea midline Respiratory/Chest: Decreased breath sounds, Crackles, rales, No accessory muscle use Cardiovascular: S1, S2, No murmur, +Tachycardia Abdomen/GI:Soft, Non tender, Bowel sounds present Extremities/Musculoskeletal:normal inspection, no edema Neurologic/Psych:AAOX3, grossly no focal neurological deficits Skin: normal color, warm Results & Data Results & Data Vital Signs (Past 12 Hours) Vital Signs Temp Pulse Resp BP BP Pulse Ox Pulse Ox 05/01/24 15:52 112 H 05/01/24 11:55 36.7 C 20 109/75 96 05/01/24 09:00 122 H 05/01/24 09:00 05/01/24 08:29 92 05/01/24 07:37 120 H 20 133/95 100 05/01/24 07:30 115 H 26 H 100 05/01/24 06:18 117 H 28 H 100 05/01/24 06:15 132/99 05/01/24 06:15 132/99 05/01/24 06:06 117 H 33 H 100 05/01/24 06:04 05/01/24 06:00 118/94 05/01/24 06:00 116 H 29 H 118/94 99 05/01/24 06:00 118/94 05/01/24 05:24 116 H 120/91 05/01/24 05:21 120/91 05/01/24 05:10 118/82 05/01/24 05:08 05/01/24 05:03 108 H 31 H 94 05/01/24 04:59 108/84 05/01/24 04:57 138 H 29 H 108/84 96 05/01/24 04:56 137 H 150/119 H 05/01/24 04:55 150/119 H 05/01/24 04:55 150/119 H 05/01/24 04:49 153/118 H 05/01/24 04:31 165/121 H 05/01/24 04:30 152 H 05/01/24 04:29 05/01/24 04:27 153 H 34 H 75 L O2 Del Method O2 Del Method O2 Flow Rate FiO2 05/01/24 15:52 05/01/24 11:55 Nasal Cannula 4 05/01/24 09:00 05/01/24 09:00 Nasal Cannula 6 05/01/24 08:29 Nasal Cannula 05/01/24 07:37 BiPAP 05/01/24 07:30 70 05/01/24 06:18 05/01/24 06:15 05/01/24 06:15 05/01/24 06:06 05/01/24 06:04 BiPAP 05/01/24 06:00 05/01/24 06:00 05/01/24 06:00 05/01/24 05:24 05/01/24 05:21 05/01/24 05:10 05/01/24 05:08 BiPAP 05/01/24 05:03 05/01/24 04:59 05/01/24 04:57 05/01/24 04:56 05/01/24 04:55 05/01/24 04:55 05/01/24 04:49 05/01/24 04:31 05/01/24 04:30 05/01/24 04:29 Room Air 05/01/24 04:27 Room Air Laboratory Results Short CBC 05/01/24 Range/Units 04:22 WBC 17.83 H (4.8-10.8) K/ul Hgb 14.1 (12.0-16.0) g/dl Hct 45.4 (37.0-47.0) % Plt Count 469 H (130-400) K/uL BMP 05/01/24 05/01/24 05/01/24 04:22 06:31 11:05 Sodium 128 L 129 L Potassium TNP 4.4 4.1 Chloride 94 L 93 L Carbon Dioxide 22 26 BUN 13 12 Creatinine 0.62 0.62 Glucose 173 H 139 H Calcium 9.6 9.2 Liver Function 05/01/24 05/01/24 Range/Units 04:22 06:31 Total Bilirubin 0.3 (0.2-1.0) mg/dl AST TNP 17 ALT 23 (7-52) U/L Alkaline Phosphatase 122 H (34-104) U/L Albumin 4.9 (3.4-5.0) gm/dl Urine 05/01/24 Range/Units 05:19 Urine Color Yellow Urine Appearance Clear (Clear) Urine pH 7.0 (4.5-7.5) Ur Specific [place] 1.035 H (1.000-1.030) Urine Protein 2+ H (Negative) Urine Glucose (UA) Negative (Negative)
[2024-05-01] MEDS ORDERED: FUROSEMIDE 40 MG/4 ML VIAL IV SCH (17:00)
[2024-05-01 17:30] LABS: Calcium 9.1 mg/dl (8.6-10.3); Creatinine Clr Calc Pharmacy 95.3 ml/min; Est GFR (African American) 113.8 ml/min; Est GFR (Non-African American) 98.2 ml/min; Potassium 4.2 mmol/L (3.5-5.1)
[2024-05-01 17:39] LABS: Troponin I High Sensitivity 902.1 pg/ml (0-14)
[2024-05-01] MEDS: DOXYCYCLINE HYCLATE 100 MG CAP PO SCH (20:44)
[2024-05-02 05:51] LABS: Base Excess VBG 3.8 mEq/L; HCO3 VBG 29 mmol/L; Oxygen Saturation VBG 79.2 %; PCO2 VBG 46 mmHg (38-50); PO2 VBG 47 mmHg; pH VBG 7.41 (7.36-7.41)
[2024-05-02 06:01] LABS: Basophils # (auto) 0.01 K/uL (0.00-0.20); Basophils % (auto) 0.1 %; Eosinophils # (auto) 0.59 K/uL (0.00-0.50); Hemoglobin 11.6 g/dl (12.0-16.0); Immature Granulocytes # (auto) 0.06 K/uL (0.01-0.20); Immature Granulocytes % (auto) 0.5 %; Lymphocytes # (auto) 2.12 K/uL (1.20-3.40); Mean Corpuscular Hemoglobin 24.3 pg (25.0-34.0); Mean Corpuscular Hgb Conc 31.4 g/dL (32.0-36.0); Mean Corpuscular Volume 77.4 fL (80.0-100.0); Mean Platelet Volume 9.8 fL (9.4-12.4); Monocytes # (auto) 1.01 K/uL (0.11-0.59); Monocytes % (auto) 8.6 %; Neutrophils # (auto) 7.97 K/uL (1.40-6.50); Neutrophils % (auto) 67.8 %; Platelet Count 315 K/uL (130-400); RDW Coefficient of Variation 19.6 % (11.5-14.5); RDW Standard Deviation 54.9 fL (36.4-46.3); Red Blood Count 4.78 M/uL (4.20-5.40); White Blood Count 11.76 K/ul (4.8-10.8)
[2024-05-02 06:10] LABS: BUN Creatinine Ratio 17.9 (10-20); Calcium 9.2 mg/dl (8.6-10.3); Creatinine Clr Calc Pharmacy 107.2 ml/min; Est GFR (African American) 118.3 ml/min; Est GFR (Non-African American) 102.1 ml/min; Magnesium 1.8 mg/dl (1.7-2.4); Potassium 4.2 mmol/L (3.5-5.1)
[2024-05-02 07:08] LABS: Estimated Average Glucose 143 mg/dl; Hemoglobin A1C 6.6 % (4.5-5.6)
--- NOTE | 2024-05-02 09:07 | Cardiology Progress Note ---
Date of Service May 02, 2024 Assessment & Plan (1) Acute respiratory failure with hypoxia: (2) Acute systolic (congestive) heart failure: (3) Non-ST elevation (NSTEMI) myocardial infarction: (4) Hypertension: (5) Tachycardia: (6) Community acquired pneumonia: Plan Assessment: 58 year old female presents in acute respiratory distress with evidence of acute heart failure as well as suspected pneumonia with further imaging. Plan: -Patient's respiratory status improved at the time of examination. -acute respiratory failure in the setting of evidence of acute heart failure and pneumonia. -Patient carries a history of stress induced cardiomyopathy in her past with a prior cardiac cath in 2020 which demonstrated branch vessel disease involving the first and second diagonal as follows: Coronary Anatomy Dominant: Left Left Main (% Stenosis): Normal LAD (% Stenosis): Proximal (20%), Mid (20%) and Distal (20%) D1 (% Stenosis): Ostial (50%) D2 (% Stenosis): Ostial (70%) Circumflex (% Stenosis): Mid (30%) and Distal (10%) OM1 (% Stenosis): Normal (1.5mm vessel) OM2 (% Stenosis): Normal L PL1 (% Stenosis): Normal L PL2 (% Stenosis): Normal L PDA (% Stenosis): Proximal (30%) RCA (% Stenosis): Proximal (20%) Ramus (% Stenosis): Normal (small vessel) -Patient is also notably hypertensive which is likely multifactorial and can be contributing to her abnormal echo findings. -Tachycardic (with presence of a Left BBB) upon review on telemetry in the setting of acute respiratory distress and an acute infectious process. -High sensitivity troponin 614.4 and 685.7. Trend to peak. -At this time continue ASA 81mg, Atorvastatin 80mg, Losartan 50mg daily and Toprol xl 25mg BID. -Continued Antibiotics for pneumonia as per management of primary team. -Will discuss echocardiogram findings as well as prior cath with Dr. Chao 05/02/2024: -Patient shows notable improvement in her condition. She is currently on supplemental 02 at 2LPM with no complaints -BP continues to demonstrates modest improvement and Heart rates have improved with introduction of beta alvarado therapy. Currently receiving Toprol xl 25mg BID. Increase to 25mg PO Three times per day. -Continue with reduced dose of Losartan (previously on 100mg, reduced to 50mg Daily) -Continue ASA and Atorvastatin as per current regimen. -Patient was on Furosemide 80mg IV BID, will discuss continuing IV Furosemide today and reassess volume status in the AM to determine if appropriate to transition back to oral dosing. -Continued antibiotic management per primary team. -strict I&O monitoring, recommend daily weights, goal serum K > 4.0 and serum mag > 2.0 Case has been discussed with Dr. Chao. Further recommendations regarding plan of care as per his assessment. I spent a total of 30 minutes on the date of service in preparation, delivery, documentation of the care provided to the patient excluding any time spent in the performance of separately billed services. [facility] Admission and Anticipated Discharge Date Admission Date: May 01, 2024 Supervising Physician Co-Signing Physician Notes Patient seen and personally examined. Substantially improved clinically since day prior. No respiratory distress. Brisk diuresis Blood pressure improved Echocardiogram once again similar to prior episodes of stress mediated cardiomyopathy with reduced ejection fraction Impression: Stress mediated cardiomyopathy with acute pulmonary edema possible superimposed pneumonia. Clinically improving Plan: Goal be to titrate beta-alvarado higher with metoprolol succinate to 25 mg 3 times per day. Losartan currently on hold due to relatively abrupt reduction in blood pressures and hyponatremia. Will continue to hold reinstitute in the future once beta-alvarado titration complete Would recommend repeat chest x-ray in a.m. Subjective 05/02/2024: Patient seen and examined in follow up today. Feeling "ok". Patient speaks limited Lao. Denies any chest pain, pressure, palpitations, shortness of breath, PND, pre-syncope, syncope or edema. She is able to demonstrate that she can lie flat supplemental O2 at time of exam. Labs, vitals, diagnostics, telemetry and documentation reviewed. Telemetry reviewed showing SR with rates in the 80's, no acute events overnight. WBC trending down EKG today NSR with left BBB rte 93bpm -2550ml fluid balance Review of Systems Review of Systems: All systems reviewed & are unremarkable except as noted in HPI & below Physical Exam Constitutional: well developed and well nourished Neck: normal visual inspection and trachea midline Respiratory: normal respiratory effort and + cough; no respiratory distress and no labored breathing Auscultation: + diminished lung sounds (bilateral bases ); no crackles, no rales, no rhonchi and no wheezes Cardiovascular: Rate/Rhythm: regular rate and regular rhythm Heart Sounds: normal S1, normal S2 and + murmur (+1/6 systolic ) Vessels: dorsalis pedis pulses present; no JVD Extremities: no edema Skin: no rashes, warm and dry Psychiatric: A+Ox3, euthymic affect Results & Data Vital Signs (Past 12 Hours) Vital Signs Temp Pulse Pulse Resp BP Pulse Ox O2 Del Method 05/02/24 07:00 36.9 C 80 18 115/70 96 Nasal Cannula 05/02/24 03:20 37.1 C 92 H 16 107/65 97 Nasal Cannula 05/01/24 22:52 36.9 C 100 H 16 111/74 95 Nasal Cannula 05/01/24 22:31 Nasal Cannula 05/01/24 22:26 93 H O2 Flow Rate 05/02/24 07:00 2.0 05/02/24 03:20 2.0 05/01/24 22:52 2.0 05/01/24 22:31 2 05/01/24 22:26 Laboratory Results Cardiac Enzymes 05/01/24 05/01/24 05/01/24 Range/Units 11:05 16:49 22:49 Troponin I High Sens 685.7 H* 902.1 H* D 823.3 H* (0-14) pg/ml CBC 05/02/24 Range/Units 05:31 WBC 11.76 H (4.8-10.8) K/ul RBC 4.78 (4.20-5.40) M/uL Hgb 11.6 L (12.0-16.0) g/dl Hct 37.0 (37.0-47.0) % Plt Count 315 (130-400) K/uL Neut # (Auto) 7.97 H (1.40-6.50) K/uL Lymph # (Auto) 2.12 (1.20-3.40) K/uL [place] # (Auto) 1.01 H (0.11-0.59) K/uL Eos # (Auto) 0.59 H (0.00-0.50) K/uL Baso # (Auto) 0.01 (0.00-0.20) K/uL Comprehensive Metabolic Panel 05/01/24 05/02/24 Range/Units 16:49 05:31 Sodium 129 L 129 L (136-145) mmol/L Potassium 4.2 4.2 (3.5-5.1) mmol/L Chloride 94 L 94 L (98-107) mmol/L Carbon Dioxide 26 29 (21-32) mmol/L BUN 12 10 (6-23) mg/dl Creatinine 0.63 0.56 L (0.6-1.2) mg/dl Glucose 160 H 132 H (70-99(Fasting)) mg/dl Calcium 9.1 9.2 (8.6-10.3) mg/dl Intake and Output 05/01/24 05/02/24 05/02/24 22:59 06:59 14:59 Intake Total 400 / 750 250 / 750 Output Total 700 / 3300 750 / 3300 Balance -300 / -2550 -500 / -2550 Intake: Oral 400 / 650 250 / 650 Output: Urine Amount (Catheter) 700 / 3300 750 / 3300 Momin/Indwelling 700 / 3300 750 / 3300 Other: Weight 87.1 kg Weight Measurement Method Built in [facility] (4) Hypertension Hypertension type: unspecified Qualified Code(s): I10 - Essential (primary) hypertension
--- NOTE | 2024-05-02 09:24 | Electrocardiogram Report ---
Test Reason : Blood Pressure : */* mmHG Vent. Rate : 93 BPM Atrial Rate : 93 BPM P-R Int : 164 ms QRS Dur : 136 ms QT Int : 452 ms P-R-T Axes : 65 46 184 degrees QTcB Int : 561 ms Normal sinus rhythm Left bundle branch block Abnormal ECG When compared with ECG of 01-May-2024 12:31, Questionable change in QRS axis T wave inversion now evident in Inferior leads T wave inversion now evident in Anterior leads Confirmed by Joseph Luna [id number] on 05/02/2024 9:24:25 AM Referred By: REFERRED SELF Confirmed By: Joseph Luna
--- NOTE | 2024-05-02 11:32 | Nephrology Progress Note ---
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 Sodium 129 this morning. Urine osmolality is 434 and urine sodium of 36. She is making urine. Will start urea 15 g twice daily. Continue to monitor sodium once daily. (2) Hypertension: Plan: Blood pressure was high on admission but has now improved. (3) Acute respiratory failure with hypoxia and hypercarbia: Plan: Patient with bilateral mild focal pneumonia. She is getting cefepime and doxycycline. Admission and Anticipated Discharge Date Admission Date: May 01, 2024 Subjective Seen for electrolyte imbalance. She feels better today. Blood pressure has improved. She is saturating well on 2 L nasal cannula. Review of Systems 2 Review of Systems: All other systems were reviewed and negative except as noted in HPI Physical Exam 2 Physical Exam: General exam: Appears comfortable, no acute distress HEENT: Pupils are equal and reactive to light Neck: No JVD, neck is supple trachea is midline Respiratory system: Clear breath sounds bilaterally. Gastrointestinal: Abdomen is soft, non distended, non tender, bowel sounds are present CVS: Regular rate and rhythm. No murmurs, rubs or gallops Musculoskeletal: No joint or muscle tenderness Extremities: Non tender, no edema, peripheral pulses are present Neuro: Oriented, no tremors, no focal neurological deficits Skin: No rashes Results & Data Vital Signs (Past 12 Hours) Vital Signs Temp Pulse Pulse Resp BP Pulse Ox O2 Del Method 05/02/24 08:00 94 H 05/02/24 08:00 Nasal Cannula 05/02/24 07:00 36.9 C 80 18 115/70 96 Nasal Cannula 05/02/24 03:20 37.1 C 92 H 16 107/65 97 Nasal Cannula O2 Flow Rate 05/02/24 08:00 05/02/24 08:00 2 05/02/24 07:00 2.0 05/02/24 03:20 2.0 Laboratory Results 05/02/24 05:31 05/02/24 05:31 WBC 11.76 H RBC 4.78 MCV 77.4 L MCH 24.3 L MCHC 31.4 L RDW Std Deviation 54.9 H RDW Coeff of [place] 19.6 H Plt Count 315 MPV 9.8 (2) Hypertension Hypertension type: unspecified Qualified Code(s): I10 - Essential (primary) hypertension
[2024-05-02] MEDS: UREA (UREA-NA) 15 GM PACK PO SCH (12:12)
[2024-05-02] MEDS: METOPROLOL SUCC 25MG EXT REL TAB PO SCH (14:03)
--- NOTE | 2024-05-02 16:26 | Hospitalist Progress Note ---
Date of Service May 02, 2024 Assessment & Plan (1) Acute respiratory failure with hypoxia and hypercarbia: Plan: In summary, 58-year-old female with past medical history significant for type 2 diabetes, hypertension, history of stress-induced cardiomyopathy, hyperlipidemia, GERD, iron deficiency anemia, generalized anxiety disorder presents with hypertensive urgency, multifocal pneumonia, NSTEMI and acute CHF. Patient is Beth speaking. Patient seen and examined with nursing in attendance and voice system sales consultant . Echo showed EF of 30 to 39% thought to be stress-induced cardiomyopathy. Acute respiratory failure with hypoxia and hypercarbia Flash pulmonary edema Hypertensive emergency Likely stress-induced cardiomyopathy Suspected multifocal pneumonia Chronic left bundle branch block --CTA:No pulmonary embolism. Multifocal bilateral pneumonias. --ECHO: Moderate to severe concentric LVH. Septal motion is consistent with conduction abnormality. Moderate to severe global hypokinesis of the left ventricle. Basilar structures contract normally with mild expansion of apex. EF 30 to 35%. Aortic valve sclerosis moderate, without significant aortic valvular stenosis. Mild mitral regurgitation. --Normal procalcitonin --Urine for Legionella still pending --Blood culture still pending Diuresed well with IV Lasix and BiPAP use. Currently weaned down to nasal cannula 2 L Continue metoprolol succinate dose at 25 mg BID Continue to hold losartan for now per cardiology Appreciate cardiology consult Further IV diuresis to be determined No plan for cardiac catheterization at present Empirically on IV cefepime, Doxy for CAP Monitor volume status, I's and O's, daily weight Monitor and replete electrolytes as needed. Sodium improved and stable Continue supplemental oxygen as needed. Continue to wean as able Low threshold to start IV anticoagulation Monitor and adjust antihypertensives as needed Chest pain Secondary to above Troponin elevation likely NSTEMI Echo as above Cardiology continues to follow Hyponatremia Likely SIADH Monitor sodium levels closely Sodium 129 today, 129 yesterday Appreciate nephrology consult Hypomagnesemia Monitor and replete electrolytes as needed Hyperlipidemia Continue Lipitor DM II Hold metformin Update HbA1c Continue insulin while hospitalized Monitor BGs, SSI GERD Continue PPI Iron deficiency anemia Follows with heme-onc Received IV Venofer previously Monitor CBC DVT Px: Lovenox SQ CODE STATUS Full code A total of 55 minutes was spent in review of studies, imaging, counseling and care coordination Admission and Anticipated Discharge Date Admission Date: May 01, 2024 Subjective 05/02/2024: Patient seen and examined at bedside. RENE Peterson is in attendance and the electronic system sales consultant was used.. Patient is feeling better. She is less short of breath. She is off BiPAP and is on 2 L of oxygen via nasal cannula. Labs, vitals, diagnostics, telemetry and documentation reviewed. Telemetry reviewed showing SR with rates in the 70's-80's, no acute events overnight recorded. WBC trending down nicely -1850ml fluid balance Review of Systems Review of Systems: Constitutional- no fever; no chills, she is having a good diuretic response Eyes- no acute visual changes ENT- no sinus drainage; no pharyngitis Pulmonary- + cough, no wheezing, +no shortness of breath but improved Cardiac- no chest pain, no palpitations, + orthopnea, no nt edema GI- no nausea, no vomiting, no diarrhea, no melena, no hematochezia - no dysuria, no hematuria Musculoskeletal- no arthralgias, no myalgias Derm- no rashes, no new skin lesions, no changing skin lesions Hematologic- no unusual bruising, no unusual bleeding Neuro- no headaches, no focal neurologic symptoms Psych- no anxiety, no depression Physical Exam Physical Exam: General-she is alert and oriented x 3 via the system sales consultant, she appears ill, O2 in place via nasal cannula Head- atraumatic Eyes- PERRL, EOMI, anicteric ENT- oropharynx clear Neck- supple, no JVD, no adenopathy, no thyromegaly; carotids +2/2, no bruits appreciated Lungs-diminished breath sounds in the bases. No active wheezing Heart- regular rhythm; no murmur, no gallop, no rub appreciated Abdomen- normal bowel sounds, soft, nontender, no masses or hepatosplenomegaly GenitourinaryFoley catheter intact and draining clear yellow urine Extremities- no pretibial edema, no calf tenderness; peripheral pulses intact Neuro- alert, oriented x 3; PERRL, EOMI; no focal deficits noted Skin- warm & dry Results & Data Results & Data Vital Signs (Past 12 Hours) Vital Signs Temp Pulse Pulse Resp BP Pulse Ox O2 Del Method 05/02/24 15:25 36.5 C 86 109/58 L 96 Room Air 05/02/24 14:23 94 Room Air 05/02/24 14:00 97 Nasal Cannula 05/02/24 11:30 36.5 C 77 16 120/69 97 Nasal Cannula 05/02/24 08:00 94 H 05/02/24 08:00 Nasal Cannula 05/02/24 07:00 36.9 C 80 18 115/70 96 Nasal Cannula O2 Flow Rate 05/02/24 15:25 05/02/24 14:23 05/02/24 14:00 2 05/02/24 11:30 2 05/02/24 08:00 05/02/24 08:00 2 05/02/24 07:00 2.0 Laboratory Results Laboratory Results WBC 11.76 K/ul (4.8-10.8) H 05/02/24 05:31 RBC 4.78 M/uL (4.20-5.40) 05/02/24 05:31 Hgb 11.6 g/dl (12.0-16.0) L 05/02/24 05:31 POC Hgb 16.3 g/dl (12.0-16.0) H 05/01/24 04:24 Hct 37.0 % (37.0-47.0) 05/02/24 05:31 POC Hct 48 % (37-47) H 05/01/24 04:24 MCV 77.4 fL (80.0-100.0) L 05/02/24 05:31 MCH 24.3 pg (25.0-34.0) L 05/02/24 05:31 MCHC 31.4 g/dL (32.0-36.0) L 05/02/24 05:31 RDW Std Deviation 54.9 fL (36.4-46.3) H 05/02/24 05:31 RDW Coeff of Roma 19.6 % (11.5-14.5) H 05/02/24 05:31 Plt Count 315 K/uL (130-400) 05/02/24 05:31 MPV 9.8 fL (9.4-12.4) 05/02/24 05:31 Immature Gran % (Auto) 0.5 % 05/02/24 05:31 Neut % (Auto) 67.8 % 05/02/24 05:31 Lymph % (Auto) 18.0 % 05/02/24 05:31 Hancock % (Auto) 8.6 % 05/02/24 05:31 Eos % (Auto) 5.0 % 05/02/24 05:31 Baso % (Auto) 0.1 % 05/02/24 05:31 Neut # (Auto) 7.97 K/uL (1.40-6.50) H 05/02/24 05:31 Lymph # (Auto) 2.12 K/uL (1.20-3.40) 05/02/24 05:31 Hancock # (Auto) 1.01 K/uL (0.11-0.59) H 05/02/24 05:31 Eos # (Auto) 0.59 K/uL (0.00-0.50) H 05/02/24 05:31 Baso # (Auto) 0.01 K/uL (0.00-0.20) 05/02/24 05:31 Immature Gran # (Auto) 0.06 K/uL (0.01-0.20) 05/02/24 05:31 RBC Morphology Unremarkable 05/01/24 04:22 PT 9.8 Seconds (9.0-12.0) 05/01/24 04:22 INR 0.9 (0.9-1.1) 05/01/24 04:22 APTT 27 Seconds (21-31) 05/01/24 04:22 PTT Ratio 1.0 05/01/24 04:22 ABG pH 7.41 (7.35-7.45) 05/01/24 11:05 ABG pCO2 38 mmHg (35-46) 05/01/24 11:05 ABG pO2 79 mmHg (80-95) L 05/01/24 11:05 ABG HCO3 24 mmol/L (19-24) 05/01/24 11:05 ABG O2 Saturation 96.8 % (90-95) H 05/01/24 11:05 ABG Base Excess -0.3 mEq/L (-9-1.8) 05/01/24 11:05 Fletcher Test Pos (Pos) 05/01/24 11:05 VBG pH 7.41 (7.36-7.41) 05/02/24 05:31 VBG pCO2 46 mmHg (38-50) 05/02/24 05:31 VBG pO2 47 mmHg 05/02/24 05:31 VBG HCO3 29 mmol/L 05/02/24 05:31 VBG O2 Saturation 79.2 % 05/02/24 05:31 VBG Base Excess 3.8 mEq/L 05/02/24 05:31 Oxygen Given 5L 05/01/24 11:05 POC Sodium 131 mmol/L (135-144) L 05/01/24 04:24 Sodium 129 mmol/L (136-145) L 05/02/24 05:31 POC Potassium 4.2 mmol/L (3.3-5.0) 05/01/24 04:24 Potassium 4.2 mmol/L (3.5-5.1) 05/02/24 05:31 POC Chloride 96 mmol/L (101-112) L 05/01/24 04:24 Chloride 94 mmol/L (98-107) L 05/02/24 05:31 Carbon Dioxide 29 mmol/L (21-32) 05/02/24 05:31 POC Total CO2 24 mmol/L (24-31) 05/01/24 04:24 Anion Gap 6 (3-11) 05/02/24 05:31 POC Anion Gap 16.0 mmol/L (16-25) 05/01/24 04:24 POC BUN 14 mg/dl (7-18) 05/01/24 04:24 BUN 10 mg/dl (6-23) 05/02/24 05:31 Creatinine 0.56 mg/dl (0.6-1.2) L 05/02/24 05:31 POC Creatinine 0.6 mg/dl (0.6-1.3) 05/01/24 04:24 Est Cr Clr Drug Dosing 107.2 ml/min 05/02/24 05:31 Est GFR ( Amer) 118.3 ml/min 05/02/24 05:31 Est GFR (Non-Af Amer) 102.1 ml/min 05/02/24 05:31 BUN/Creatinine Ratio 17.9 (10-20) 05/02/24 05:31 Glucose 132 mg/dl (70-99(Fasting)) H 05/02/24 05:31 POC Glucose 164 mg/dl (70-99) H 05/02/24 11:33 POC Glucose (other) 173 mg/dl (70-99) H 05/01/24 04:24 Estimat Average Glucose 143 mg/dl 05/02/24 05:31 Hemoglobin A1c 6.6 % (4.5-5.6) H 05/02/24 05:31 Osmolality 278 mOsm/kg (280-300) L 05/01/24 08:53 Calcium 9.2 mg/dl (8.6-10.3) 05/02/24 05:31 POC Ioniz Calcium Corey 1.17 mmol/l (1.12-1.32) 05/01/24 04:24 Magnesium 1.8 mg/dl (1.7-2.4) 05/02/24 05:31 Total Bilirubin 0.3 mg/dl (0.2-1.0) 05/01/24 04:22 AST 17 U/L (13-39) 05/01/24 06:31 ALT 23 U/L (7-52) 05/01/24 04:22 Alkaline Phosphatase 122 U/L (34-104) H 05/01/24 04:22 Troponin I High Sens 823.3 pg/ml (0-14) H* 05/01/24 22:49 B-Natriuretic Peptide 61 pg/ml (0-100) 05/01/24 04:22 Total Protein 8.3 gm/dl (6.0-8.3) 05/01/24 04:22 Albumin 4.9 gm/dl (3.4-5.0) 05/01/24 04:22 Globulin 3.4 gm/dl (2.5-4.0) 05/01/24 04:22 Albumin/Globulin Ratio 1.4 (0.9-2) 05/01/24 04:22 Procalcitonin 0.02 ng/ml (0-0.5) 05/01/24 08:53 Urine Color Yellow 05/01/24 05:19 Urine Appearance Clear (Clear) 05/01/24 05:19 Urine pH 7.0 (4.5-7.5) 05/01/24 05:19 Ur Specific [place] 1.035 (1.000-1.030) H 05/01/24 05:19 Urine Protein 2+ (Negative) H 05/01/24 05:19 Urine Glucose (UA) Negative (Negative) 05/01/24 05:19 Urine Ketones Negative (Negative) 05/01/24 05:19 Urine Blood Negative (Negative) 05/01/24 05:19 Urine Nitrite Negative (Negative) 05/01/24 05:19 Urine Bilirubin Negative (Negative) 05/01/24 05:19 Urine Urobilinogen Negative (Negative) 05/01/24 05:19 Ur Leukocyte Esterase Negative (Negative) 05/01/24 05:19 Urine WBC (Auto) 0-5 /hpf (0-5) 05/01/24 05:19 Urine RBC (Auto) 0-2 /hpf (0-2) 05/01/24 05:19 U Hyaline Cast (Auto) 0-2 /lpf (0-2) 05/01/24 05:19 U Epithel Cells (Auto) 0-2 /hpf (0-2) 05/01/24 05:19 Urine Bacteria (Auto) None Seen (None Seen) 05/01/24 05:19 Urine Osmolality 434 mOsm/kg (500-800) L 05/01/24 08:35 Ur Random Sodium 36 mmol/L 05/01/24 08:35 Adenovirus (PCR) Not Detected (NotDetected) 05/01/24 04:22 B. pertussis DNA (PCR) Not Detected (NotDetected) 05/01/24 04:22 B.parapertussis DNA PCR Not Detected (NotDetected) 05/01/24 04:22 C. pneumoniae DNA (PCR) Not Detected (NotDetected) 05/01/24 04:22 Coronavirus OC43 (PCR) Not Detected (NotDetected) 05/01/24 04:22 Coronavirus HKU1 (PCR) Not Detected (NotDetected) 05/01/24 04:22 Coronavirus 229E (PCR) Not Detected (NotDetected) 05/01/24 04:22 SARS-CoV-2 (PCR) Not Detected (NotDetected) 05/01/24 04:22 Coronavirus NL63 (PCR) Not Detected (NotDetected) 05/01/24 04:22 Hepatitis C Ab Screen Negative (Negative) 05/01/24 09:01 Human Metapneumovir PCR Not Detected (NotDetected) 05/01/24 04:22 Influenza Type A (PCR) Not Detected (NotDetected) 05/01/24 04:22 Influenza Type B (PCR) Not Detected (NotDetected) 05/01/24 04:22 Urine Legionella Ag SEE NOTE 05/01/24 08:19 M. pneumoniae (PCR) Not Detected (NotDetected) 05/01/24 04:22 Parainfluenza 1 (PCR) Not Detected (NotDetected) 05/01/24 04:22 Parainfluenza 2 (PCR) Not Detected (NotDetected) 05/01/24 04:22 Parainfluenza 3 (PCR) Not Detected (NotDetected) 05/01/24 04:22 Parainfluenza 4 (PCR) Not Detected (NotDetected) 05/01/24 04:22 RSV (PCR) Not Detected (NotDetected) 05/01/24 04:22 Entero/Rhino (PCR) Not Detected (NotDetected) 05/01/24 04:22 Impressions Chest CTA 05/01/24 04:20 Exam(s): CTA CHEST IV Amt: 118 ML OPTIRAY 320 EXAM: CT Angiography Chest With Intravenous Contrast CLINICAL HISTORY: Dyspnea, hypoxic, travel. TECHNIQUE: Axial computed tomographic angiography images of the chest with intravenous contrast. CTDI is 25.53 mGy and DLP is 801.99 mGy-cm. Automated exposure control was utilized for the study. A dose lowering technique was utilized adhering to the principles of ALARA. 3D and MIP reconstructed images were created and reviewed. COMPARISON: Chest x-ray 05-01-2024, CT chest 09/14/2022 and 07/29/2021 FINDINGS: Pulmonary arteries: No pulmonary embolism. Aorta: No thoracic aortic aneurysm or dissection. Lungs: Diffuse bilateral patchy infiltrates, most severe in the bilateral lower lobes and right upper lobe. Pleural space: No pleural effusion. No pneumothorax. Heart: Mild cardiomegaly. No pericardial effusion. No evidence of RV dysfunction. Coronary artery atherosclerotic calcifications. Bones/joints: No acute fracture. Degenerative changes of the spine. Soft tissues: Unremarkable. Lymph nodes: Unremarkable. No enlarged lymph nodes. IMPRESSION: No pulmonary embolism. Multifocal bilateral pneumonias. Electronically signed by: Ar Davidson M.D. 05/01/24 05:53 AM Chest X-Ray 05/01/24 04:20 XR chest 1V portable HISTORY: 58 years-old Female Dyspnea acute shortness of breath COMPARISON: CTA chest of same day TECHNIQUE: AP view of the chest FINDINGS: Cardiac silhouette is upper limits of normal in size. There is no pneumothorax. Trace pleural effusions. Pulmonary vascular congestion with mid to lower lung zone predominant multifocal airspace opacities. Reticular interstitial densities also noted. Bones appear grossly intact. IMPRESSION: 1. Mixed interstitial and alveolar opacities with consolidation most pronounced in the right mid lung and right lung base. Findings may represent pulmonary edema versus multifocal pneumonia. 2. Trace pleural effusions. ACT 112: Negative or not required by law. The above report was generated using voice recognition software. It may contain grammatical, syntax or spelling errors. Electronically signed by: Jose Banks M.D. 05/01/2024 6:49 AM Medications Administered Current Inpatient Medications Acetaminophen (Acetaminophen 325 Mg Tab) 650 mg PO Q4H PRN PRN Reason: Pain or Fever Stop: 05/31/24 08:28 Al Hydrox/Mg Hydrox/Simethicone (Aluminum/Magnesium/Simeth (Maalox Max) 30 Ml Udc) 15 ml PO Q6H PRN PRN Reason: Dyspepsia Stop: 05/31/24 12:13 Aspirin (Aspirin 81 Mg Ectab) 81 mg PO DAILY CONSTANZA Stop: 05/31/24 08:59 Last Admin: 05/02/24 09:09 Dose: 81 mg Atorvastatin Calcium (Atorvastatin 40 Mg Tab) 80 mg PO DAILY CONSTANZA Stop: 05/31/24 08:59 Last Admin: 05/02/24 09:09 Dose: 80 mg Dextrose (Dextrose 50% 50 Ml Syringe) 25 - 50 ml IV UD PRN; Protocol PRN Reason: Hypoglycemia Protocol Stop: 05/31/24 08:28 Doxycycline Hyclate (Doxycycline Hyclate 100 Mg Cap) 100 mg PO BID CONSTANZA Stop: 05/08/24 20:59 Last Admin: 05/02/24 09:09 Dose: 100 mg Enoxaparin Sodium (Enoxaparin Inj 40 Mg/0.4 Ml Syr) 40 mg SQ Q24H [facility]STAN[facility] Stop: 05/31/24 08:59 Last Admin: 05/02/24 09:08 Dose: 40 mg Glucagon (Glucagon For Inj 1 Mg Vial) 1 mg SQ UD PRN; Protocol PRN Reason: Hypoglycemia Protocol Stop: 05/31/24 08:28 Glucose (Glucose 40% Gel 15 Gm Tube) 15 - 30 gm PO UD PRN; Protocol PRN Reason: Hypoglycemia Protocol Stop: 05/31/24 08:28 Glucose (Glucose 10 Tab/Tube) 4 - 8 tab PO UD PRN; Protocol PRN Reason: Hypoglycemia Treatment Stop: 05/31/24 08:28 Cefepime HCl 2,000 mg/ Syringe 20 mls @ 5 mls/min IV Q8H CONSTANZA; Protocol Stop: 05/08/24 12:59 Last Admin: 05/02/24 12:12 Dose: 5 mls/min Insulin Aspart (Insulin Aspart Per Unit Charge) 0 units SC ACHS CONSTANZA Stop: 05/31/24 16:29 Last Admin: 05/02/24 12:12 Dose: 2 units Losartan Potassium (Losartan Potassium 50 Mg Tab) 50 mg PO DAILY CONSTANZA Stop: 05/31/24 08:59 Last Admin: 05/01/24 09:39 Dose: 50 mg Metoprolol Succinate (Metoprolol Succ 25mg Ext Rel Tab) 25 mg PO TID CONSTANZA Stop: 06/01/24 13:59 Last Admin: 05/02/24 14:03 Dose: 25 mg Miscellaneous (Carbohydrates For Hypoglycemia ) 15 - 30 gm PO UD PRN PRN Reason: Hypoglycemia Protocol Stop: 05/31/24 08:28 Ondansetron HCl (Ondansetron Inj 2 Mg/Ml 2 Ml Vial) 4 mg IV Q6H PRN PRN Reason: Nausea Stop: 05/31/24 08:28 Pantoprazole Sodium (Pantoprazole 40 Mg Tab) 40 mg PO BID [facility] Stop: 05/31/24 08:59 Last Admin: 05/02/24 09:09 Dose: 40 mg Prednisolone Acetate (Prednisolone Acetate 1% Op Susp 5 Ml Btl) 1 drops OPL BID [facility] Stop: 05/31/24 08:59 Last Admin: 05/02/24 09:08 Dose: 1 drops Urea (Urea (Urea-Na) 15 Gm Pack) 15 gm PO BID [facility] Stop: 06/01/24 11:14 Last Admin: 05/02/24 12:12 Dose: 15 gm
[2024-05-03] MEDS: METOPROLOL SUCC 50MG EXT REL TAB PO SCH (08:16)
--- NOTE | 2024-05-03 11:04 | Nephrology Progress Note ---
Date of Service May 03, 2024 Assessment & Plan (1) Hyponatremia: Plan: Patient with hyponatremia due to syndrome of inappropriate ADH. Sodium 129 On 05/02/2024. Urine osmolality is 434 and urine sodium of 36. She is making urine. Will Continue urea 15 g twice daily. Continue to monitor sodium once daily. (2) Hypertension: Plan: Blood pressure was high on admission but has now improved. (3) Acute respiratory failure with hypoxia and hypercarbia: Plan: Patient with bilateral mild focal pneumonia. She is getting cefepime and doxycycline. Marked improvement noted in clinical status and improving leukocytosis. Admission and Anticipated Discharge Date Admission Date: May 01, 2024 Subjective Seen for hyponatremia. No new complaints today. She is off oxygen now. Review of Systems 2 Review of Systems: All other systems were reviewed and negative except as noted in HPI Physical Exam 2 Physical Exam: General exam: Appears comfortable, no acute distress HEENT: Pupils are equal and reactive to light Neck: No JVD, neck is supple trachea is midline Respiratory system: Clear breath sounds bilaterally. Gastrointestinal: Abdomen is soft, non distended, non tender, bowel sounds are present CVS: Regular rate and rhythm. No murmurs, rubs or gallops Musculoskeletal: No joint or muscle tenderness Extremities: Non tender, no edema, peripheral pulses are present Neuro: Oriented, no tremors, no focal neurological deficits Skin: No rashes Results & Data Vital Signs (Past 12 Hours) Vital Signs Temp Pulse Resp BP Pulse Ox O2 Del Method O2 Del Method 05/03/24 08:57 36.5 C 81 20 119/82 91 Room Air 05/03/24 08:00 Room Air 05/03/24 02:50 36.6 C 87 18 108/69 93 Room Air 05/02/24 23:34 36.6 C 95 H 18 103/66 92 Room Air Laboratory Results 05/02/24 05:31 (2) Hypertension Hypertension type: unspecified Qualified Code(s): I10 - Essential (primary) hypertension
[2024-05-03 12:04] VITALS: RESP 19
--- NOTE | 2024-05-03 12:17 | Electrocardiogram Report ---
Test Reason : Blood Pressure : */* mmHG Vent. Rate : 86 BPM Atrial Rate : 86 BPM P-R Int : 170 ms QRS Dur : 132 ms QT Int : 440 ms P-R-T Axes : 69 13 178 degrees QTcB Int : 526 ms Normal sinus rhythm Left bundle branch block Abnormal ECG When compared with ECG of 02-May-2024 05:50, No significant change was found Confirmed by Joseph Luna ([id number]) on 05/03/2024 12:16:55 PM Referred By: REFERRED SELF Confirmed By: Joseph Luna
--- NOTE | 2024-05-03 12:29 | Cardiology Progress Note ---
Date of Service May 03, 2024 Assessment & Plan (1) Acute respiratory failure with hypoxia: (2) Acute systolic (congestive) heart failure: (3) Non-ST elevation (NSTEMI) myocardial infarction: (4) Hypertension: (5) Tachycardia: (6) Community acquired pneumonia: Plan Assessment: 58 year old female presents in acute respiratory distress with evidence of acute heart failure as well as suspected pneumonia with further imaging. Plan: -Patient's respiratory status improved at the time of examination. -acute respiratory failure in the setting of evidence of acute heart failure and pneumonia. -Patient carries a history of stress induced cardiomyopathy in her past with a prior cardiac cath in 2020 which demonstrated branch vessel disease involving the first and second diagonal as follows: Coronary Anatomy Dominant: Left Left Main (% Stenosis): Normal LAD (% Stenosis): Proximal (20%), Mid (20%) and Distal (20%) D1 (% Stenosis): Ostial (50%) D2 (% Stenosis): Ostial (70%) Circumflex (% Stenosis): Mid (30%) and Distal (10%) OM1 (% Stenosis): Normal (1.5mm vessel) OM2 (% Stenosis): Normal L PL1 (% Stenosis): Normal L PL2 (% Stenosis): Normal L PDA (% Stenosis): Proximal (30%) RCA (% Stenosis): Proximal (20%) Ramus (% Stenosis): Normal (small vessel) -Patient is also notably hypertensive which is likely multifactorial and can be contributing to her abnormal echo findings. -Tachycardic (with presence of a Left BBB) upon review on telemetry in the setting of acute respiratory distress and an acute infectious process. -High sensitivity troponin 614.4 and 685.7. Trend to peak. -At this time continue ASA 81mg, Atorvastatin 80mg, Losartan 50mg daily and Toprol xl 25mg BID. -Continued Antibiotics for pneumonia as per management of primary team. -Will discuss echocardiogram findings as well as prior cath with Dr. Chao 05/02/2024: -Patient shows notable improvement in her condition. She is currently on supplemental 02 at 2LPM with no complaints -BP continues to demonstrates modest improvement and Heart rates have improved with introduction of beta alvarado therapy. Currently receiving Toprol xl 25mg BID. Increase to 25mg PO Three times per day. -Continue with reduced dose of Losartan (previously on 100mg, reduced to 50mg Daily) -Continue ASA and Atorvastatin as per current regimen. -Patient was on Furosemide 80mg IV BID, will discuss continuing IV Furosemide today and reassess volume status in the AM to determine if appropriate to transition back to oral dosing. -Continued antibiotic management per primary team. -strict I&O monitoring, recommend daily weights, goal serum K > 4.0 and serum mag > 2.0 Case has been discussed with Dr. Chao. Further recommendations regarding plan of care as per his assessment. I spent a total of 30 minutes on the date of service in preparation, delivery, documentation of the care provided to the patient excluding any time spent in the performance of separately billed services. [facility] 05/03/2024 1. Stress mediated apical ballooning cardiomyopathy with reduced ejection fraction, pulmonary edema possibly superimposed on pneumonia. Continue upward beta-alvarado titration to metoprolol succinate 50 mg twice per day. Losartan remains on hold as blood pressure has improved Repeat chest x-ray today. Will need daily diuretic dosage likely but has not required since it hospitalization initiated Admission and Anticipated Discharge Date Admission Date: May 01, 2024 Subjective Patient seen and examined, chart and telemetry reviewed Blood pressure is well-controlled today heart rate trending better. No respiratory distress with good oxygenation on room air Patient denies cough. No arrhythmias on telemetry Substantial diuresis since admission. Weight down at least 5 kg Physical Exam Constitutional: no acute distress Eyes: PERRL, conjunctivae normal, anicteric sclerae ENMT: external ear and nose normal, oropharynx normal Neck: trachea midline, no thyromegaly Respiratory: Auscultation: + diminished lung sounds, + crackles and + rales Cardiovascular: Rate/Rhythm: regular rate, regular rhythm and + tachycardic Vessels: no JVD Extremities: no edema Gastrointestinal (Abdomen): normal bowel sounds, soft, nontender, no hepatosplenomegaly Musculoskeletal: no cyanosis or clubbing, extremities motor strength 5/5 Results & Data Vital Signs (Past 12 Hours) Vital Signs Temp Pulse Resp BP Pulse Ox O2 Del Method O2 Del Method 05/03/24 12:03 36.7 C 87 19 123/76 92 Room Air 05/03/24 08:57 36.5 C 81 20 119/82 91 Room Air 05/03/24 08:00 Room Air 05/03/24 02:50 36.6 C 87 18 108/69 93 Room Air Laboratory Results Laboratory Results - last 24 hr 05/02/24 05/02/24 05/03/24 16:35 19:36 07:23 POC Glucose 111 H 123 H 127 H 05/03/24 11:28 POC Glucose 129 H ECG Additional Comments: EKG 05/03/2024 Sinus rhythm at 86 bpm with left bundle branch block (4) Hypertension Hypertension type: unspecified Qualified Code(s): I10 - Essential (primary) hypertension
--- NOTE | 2024-05-03 13:02 | XRay Report ---
XR chest 1V portable CLINICAL HISTORY: Pulmonary edema/pneumonia COMPARISON STUDY: Chest radiograph and chest CT May 01, 2024. FINDINGS: There is no pneumothorax. No definite pleural effusion is identified. Cardiomediastinal parmjit houette is stable. Interstitial thickening and bilateral alveolar opacities have significantly improv ed since prior chest radiograph and chest CT. IMPRESSION: Significant improvement in findings consistent with interstitial and alveolar pulmonary e yecenia. ACT 112: Negative or not required by law. Electronically signed by: Tim Dueñas M.D. 05/03/2024 1:00 PM
[2024-05-03 16:44] VITALS: BP 117/78; PULSE 75; TEMP 97.9; O2SAT 95
--- NOTE | 2024-05-03 16:49 | Discharge Summary ---
Discharge Summary Date of Service May 03, 2024 Principal Dx & Hospital Course #1 = Principal Diagnosis (1) Acute respiratory failure with hypoxia and hypercarbia: In summary, 58-year-old female with past medical history significant for type 2 diabetes, hypertension, history of stress-induced cardiomyopathy, hyperlipidemia, GERD, iron deficiency anemia, generalized anxiety disorder presents with hypertensive urgency, multifocal pneumonia, NSTEMI and acute CHF. Patient is Beth speaking. Patient seen and examined with nursing in attendance and voice spanish interpreter/translator . Echo showed EF of 30 to 39% thought to be stress-induced cardiomyopathy. Acute respiratory failure with hypoxia and hypercarbia Flash pulmonary edema Hypertensive emergency Likely stress-induced cardiomyopathy Suspected multifocal pneumonia Chronic left bundle branch block --CTA:No pulmonary embolism. Multifocal bilateral pneumonias. --ECHO: Moderate to severe concentric LVH. Septal motion is consistent with conduction abnormality. Moderate to severe global hypokinesis of the left ventricle. Basilar structures contract normally with mild expansion of apex. EF 30 to 35%. Aortic valve sclerosis moderate, without significant aortic valvular stenosis. Mild mitral regurgitation. --Normal procalcitonin --Urine for Legionella was negative --Blood cultures are negative Diuresed well with IV Lasix and BiPAP use. Weaned down to nasal cannula 2 L and has been on RA for 24 hours Continue metoprolol succinate BID Restart losartan per cardiology Cardiology consulted. Cardiac cath done recently. Pt responded well to IV diuresis No plan for cardiac catheterization at present Empirically on IV cefepime, Doxy for CAP Monitored volume status, I's and O's, daily weight Monitored and repleted electrolytes as needed. Sodium improved and stable Monitored and adjust antihypertensives as needed Chest pain Secondary to above Troponin elevation likely NSTEMI Echo as above Cardiology continues to follow Hyponatremia Likely SIADH Monitor sodium levels closely Sodium stable. Continue Urea Nephrology consult Hypomagnesemia Monitor and replete electrolytes as needed Hyperlipidemia Continue Lipitor DM II Hold metformin Update HbA1c Continue insulin while hospitalized Monitor BGs, SSI GERD Continue PPI Iron deficiency anemia Follows with heme-onc Received IV Venofer previously Monitor CBC DVT Px: Lovenox SQ CODE STATUS Full code Patient was ambulated. She did well independently ambulating in the room to and from the bathroom. Momin catheter was discontinued. Patient was deemed stable for discharge on this date. She was ambulating back to her baseline and tolerating a carb counting diet/heart healthy diet. Patient was given instructions with the help of an spanish interpreter/translator. She expressed understanding. Notes For Next Care Provider Follow-up with cardiology Follow-up with nephrology Check BMP and CBC at follow-up appointment Medication Changes From Visit p Admission HPI Per Admitting Provider 58-year-old female with past medical history significant for type 2 diabetes, hypertension, history of stress-induced cardiomyopathy, hyperlipidemia, GERD, iron deficiency anemia, generalized anxiety disorder presents with hypertensive urgency and acute CHF. Patient is Beth speaking. Son and daughter in law in the room helped with H&P. Patient recently returned from [facility]. Last night patient was feeling short of breath and complained of pain under left breast and also having some nausea and an episode of vomiting. She was also having some cough with bringing some phlegm. No fevers. No headache. In the ER she was hypoxic on nonrebreather and she was transitioned to BiPAP. Initially blood pressure high. After couple of nitroglycerin and IV labetalol blood pressure improved. No abdominal pain. Normal bowel and bladder movements. Denies any excess salt intake. Before this event patient was ambulating okay. Patient presented with similar episodes couple of years ago and at the time initially echo showed EF of 30 to 39% thought to be stress- induced cardiomyopathy and few days later repeat echo EF improved. As per family patient is compliant with her medications. Past medical history as mentioned above Past surgical history. Colonoscopy and EGD. Bilateral cataracts. Social history. . No smoking. No alcohol use. No drug use. Family history no family history on file Admission Exam Per Admitting Provider General- Not in acute distress Head- atraumatic Eyes- PERRL. ENT- oropharynx clear Neck- supple, no JVD. Lungs- clear to auscultation b/l crackles heard. no wheezing Heart- regular rhythm; tachycardia no murmur, no gallop. Abdomen- normal bowel sounds, soft, nontender, no distension Extremities- no pretibial edema, no erythema seen Neuro- alert, oriented PERRL, no facial palsy; no dysarthria; moves extremities. Skin- warm & dry Results & Data Discharge Exam General-she is alert and oriented x 3 via the spanish interpreter/translator, she looks much better, On RA Eyes- PERRL, EOMI, Neck- supple, no JVD, Lungs-diminished breath sounds in the bases. No active wheezing Heart- regular rhythm; no murmur, no gallop, no rub appreciated Abdomen- normal bowel sounds, soft, nontender, no masses or hepatosplenomegaly Extremities- no pretibial edema, no calf tenderness; peripheral pulses intact Neuro- alert, oriented x 3; PERRL, EOMI; no focal deficits noted Skin- warm & dry Updated Medication List Medication Instructions Recorded Confirmed Type aspirin 81 mg tablet,delayed 81 mg PO DAILY 05/01/24 05/01/24 History release atorvastatin 80 mg tablet 80 mg PO DAILY 05/01/24 05/01/24 History furosemide 20 mg tablet 20 mg PO DAILY 05/01/24 05/01/24 History losartan 50 mg tablet 50 mg PO DAILY 05/01/24 05/01/24 History metformin 500 mg tablet 1,000 mg PO BID 05/01/24 05/01/24 History metoprolol succinate 25 mg 25 mg PO DAILY 05/01/24 05/01/24 History tablet,extended release 24 hr omeprazole 40 mg capsule,delayed 40 mg PO BID 05/01/24 05/01/24 History release prednisolone acetate 1 % eye 1 drp OPL BID 05/01/24 05/01/24 History drops,suspension cefdinir 300 mg capsule 300 mg PO BID 5 days #10 caps 05/03/24 Rx doxycycline hyclate 100 mg capsule 100 mg PO BID #10 caps 05/03/24 Rx metoprolol succinate 50 mg 50 mg PO BID #60 tabs 05/03/24 Rx tablet,extended release 24 hr urea 15 gram oral powder packet 15 g PO BID #60 ea 05/03/24 Rx ([facility]re-[facility]) Hospital Stay Data Consultations 05/01/24 05:15 ED Decision to Admit Stat 05/01/24 08:29 Consult Cardiology Routine Consult Nephrology Routine Procedures Performed none Diagnostic Imagining Performed Laboratory Results WBC 11.76 K/ul (4.8-10.8) H 05/02/24 05:31 RBC 4.78 M/uL (4.20-5.40) 05/02/24 05:31 Hgb 11.6 g/dl (12.0-16.0) L 05/02/24 05:31 POC Hgb 16.3 g/dl (12.0-16.0) H 05/01/24 04:24 Hct 37.0 % (37.0-47.0) 05/02/24 05:31 POC Hct 48 % (37-47) H 05/01/24 04:24 MCV 77.4 fL (80.0-100.0) L 05/02/24 05:31 MCH 24.3 pg (25.0-34.0) L 05/02/24 05:31 MCHC 31.4 g/dL (32.0-36.0) L 05/02/24 05:31 RDW Std Deviation 54.9 fL (36.4-46.3) H 05/02/24 05:31 RDW Coeff of Roma 19.6 % (11.5-14.5) H 05/02/24 05:31 Plt Count 315 K/uL (130-400) 05/02/24 05:31 MPV 9.8 fL (9.4-12.4) 05/02/24 05:31 Immature Gran % (Auto) 0.5 % 05/02/24 05:31 Neut % (Auto) 67.8 % 05/02/24 05:31 Lymph % (Auto) 18.0 % 05/02/24 05:31 [place] % (Auto) 8.6 % 05/02/24 05:31 Eos % (Auto) 5.0 % 05/02/24 05:31 Baso % (Auto) 0.1 % 05/02/24 05:31 Neut # (Auto) 7.97 K/uL (1.40-6.50) H 05/02/24 05:31 Lymph # (Auto) 2.12 K/uL (1.20-3.40) 05/02/24 05:31 [place] # (Auto) 1.01 K/uL (0.11-0.59) H 05/02/24 05:31 Eos # (Auto) 0.59 K/uL (0.00-0.50) H 05/02/24 05:31 Baso # (Auto) 0.01 K/uL (0.00-0.20) 05/02/24 05:31 Immature Gran # (Auto) 0.06 K/uL (0.01-0.20) 05/02/24 05:31 RBC Morphology Unremarkable 05/01/24 04:22 PT 9.8 Seconds (9.0-12.0) 05/01/24 04:22 INR 0.9 (0.9-1.1) 05/01/24 04:22 APTT 27 Seconds (21-31) 05/01/24 04: PTT Ratio 1.0 05/01/24 04:22 ABG pH 7.41 (7.35-7.45) 05/01/24 11:05 ABG pCO2 38 mmHg (35-46) 05/01/24 11:05 ABG pO2 79 mmHg (80-95) L 05/01/24 11:05 ABG HCO3 24 mmol/L (19-24) 05/01/24 11:05 ABG O2 Saturation 96.8 % (90-95) H 05/01/24 11:05 ABG Base Excess -0.3 mEq/L (-9-1.8) 05/01/24 11:05 Fletcher Test Pos (Pos) 05/01/24 11:05 VBG pH 7.41 (7.36-7.41) 05/02/24 05:31 VBG pCO2 46 mmHg (38-50) 05/02/24 05:31 VBG pO2 47 mmHg 05/02/24 05:31 VBG HCO3 29 mmol/L 05/02/24 05:31 VBG O2 Saturation 79.2 % 05/02/24 05:31 VBG Base Excess 3.8 mEq/L 05/02/24 05:31 Oxygen Given 5L 05/01/24 11:05 POC Sodium 131 mmol/L (135-144) L 05/01/24 04:24 Sodium 129 mmol/L (136-145) L 05/02/24 05:31 POC Potassium 4.2 mmol/L (3.3-5.0) 05/01/24 04:24 Potassium 4.2 mmol/L (3.5-5.1) 05/02/24 05:31 POC Chloride 96 mmol/L (101-112) L 05/01/24 04:24 Chloride 94 mmol/L (98-107) L 05/02/24 05:31 Carbon Dioxide 29 mmol/L (21-32) 05/02/24 05:31 POC Total CO2 24 mmol/L (24-31) 05/01/24 04:24 Anion Gap 6 (3-11) 05/02/24 05:31 POC Anion Gap 16.0 mmol/L (16-25) 05/01/24 04:24 POC BUN 14 mg/dl (7-18) 05/01/24 04:24 BUN 10 mg/dl (6-23) 05/02/24 05:31 Creatinine 0.56 mg/dl (0.6-1.2) L 05/02/24 05:31 POC Creatinine 0.6 mg/dl (0.6-1.3) 05/01/24 04:24 Est Cr Clr Drug Dosing 107.2 ml/min 05/02/24 05:31 Est GFR ( Amer) 118.3 ml/min 05/02/24 05:31 Est GFR (Non-Af Amer) 102.1 ml/min 05/02/24 05:31 BUN/Creatinine Ratio 17.9 (10-20) 05/02/24 05:31 Glucose 132 mg/dl (70-99(Fasting)) H 05/02/24 05:31 POC Glucose 111 mg/dl (70-99) H 05/03/24 16:29 POC Glucose (other) 173 mg/dl (70-99) H 05/01/24 04:24 Estimat Average Glucose 143 mg/dl 05/02/24 05:31 Hemoglobin A1c 6.6 % (4.5-5.6) H 05/02/24 05:31 Osmolality 278 mOsm/kg (280-300) L 05/01/24 08:53 Calcium 9.2 mg/dl (8.6-10.3) 05/02/24 05:31 POC Ioniz Calcium Corey 1.17 mmol/l (1.12-1.32) 05/01/24 04:24 Magnesium 1.8 mg/dl (1.7-2.4) 05/02/24 05:31 Total Bilirubin 0.3 mg/dl (0.2-1.0) 05/01/24 04:22 AST 17 U/L (13-39) 05/01/24 06:31 ALT 23 U/L (7-52) 05/01/24 04:22 Alkaline Phosphatase 122 U/L (34-104) H 05/01/24 04:22 Troponin I High Sens 823.3 pg/ml (0-14) H* 05/01/24 22:49 B-Natriuretic Peptide 61 pg/ml (0-100) 05/01/24 04:22 Total Protein 8.3 gm/dl (6.0-8.3) 05/01/24 04:22 Albumin 4.9 gm/dl (3.4-5.0) 05/01/24 04:22 Globulin 3.4 gm/dl (2.5-4.0) 05/01/24 04:22 Albumin/Globulin Ratio 1.4 (0.9-2) 05/01/24 04:22 Procalcitonin 0.02 ng/ml (0-0.5) 05/01/24 08:53 Urine Color Yellow 05/01/24 05:19 Urine Appearance Clear (Clear) 05/01/24 05:19 Urine pH 7.0 (4.5-7.5) 05/01/24 05:19 Ur Specific [place]z 1.035 (1.000-1.030) H 05/01/24 05:19 Urine Protein 2+ (Negative) H 05/01/24 05:19 Urine Glucose (UA) Negative (Negative) 05/01/24 05:19 Urine Ketones Negative (Negative) 05/01/24 05:19 Urine Blood Negative (Negative) 05/01/24 05:19 Urine Nitrite Negative (Negative) 05/01/24 05:19 Urine Bilirubin Negative (Negative) 05/01/24 05:19 Urine Urobilinogen Negative (Negative) 05/01/24 05:19 Ur Leukocyte Esterase Negative (Negative) 05/01/24 05:19 Urine WBC (Auto) 0-5 /hpf (0-5) 05/01/24 05:19 Urine RBC (Auto) 0-2 /hpf (0-2) 05/01/24 05:19 U Hyaline Cast (Auto) 0-2 /lpf (0-2) 05/01/24 05:19 U Epithel Cells (Auto) 0-2 /hpf (0-2) 05/01/24 05:19 Urine Bacteria (Auto) None Seen (None Seen) 05/01/24 05:19 Urine Osmolality 434 mOsm/kg (500-800) L 05/01/24 08:35 Ur Random Sodium 36 mmol/L 05/01/24 08:35 Adenovirus (PCR) Not Detected (NotDetected) 05/01/24 04:22 B. pertussis DNA (PCR) Not Detected (NotDetected) 05/01/24 04:22 B.parapertussis DNA PCR Not Detected (NotDetected) 05/01/24 04:22 C. pneumoniae DNA (PCR) Not Detected (NotDetected) 05/01/24 04:22 Coronavirus OC43 (PCR) Not Detected (NotDetected) 05/01/24 04:22 Coronavirus HKU1 (PCR) Not Detected (NotDetected) 05/01/24 04:22 Coronavirus 229E (PCR) Not Detected (NotDetected) 05/01/24 04:22 SARS-CoV-2 (PCR) Not Detected (NotDetected) 05/01/24 04:22 Coronavirus NL63 (PCR) Not Detected (NotDetected) 05/01/24 04:22 Hepatitis C Ab Screen Negative (Negative) 05/01/24 09:01 Human Metapneumovir PCR Not Detected (NotDetected) 05/01/24 04:22 Influenza Type A (PCR) Not Detected (NotDetected) 05/01/24 04:22 Influenza Type B (PCR) Not Detected (NotDetected) 05/01/24 04:22 Urine Legionella Ag SEE NOTE 05/01/24 08:19 M. pneumoniae (PCR) Not Detected (NotDetected) 05/01/24 04:22 Parainfluenza 1 (PCR) Not Detected (NotDetected) 05/01/24 04:22 Parainfluenza 2 (PCR) Not Detected (NotDetected) 05/01/24 04:22 Parainfluenza 3 (PCR) Not Detected (NotDetected) 05/01/24 04:22 Parainfluenza 4 (PCR) Not Detected (NotDetected) 05/01/24 04:22 RSV (PCR) Not Detected (NotDetected) 05/01/24 04:22 Entero/Rhino (PCR) Not Detected (NotDetected) 05/01/24 04:22 Impressions Chest CTA 05/01/24 04:20 Exam(s): CTA CHEST IV Amt: 118 ML OPTIRAY 320 EXAM: CT Angiography Chest With Intravenous Contrast CLINICAL HISTORY: Dyspnea, hypoxic, travel. TECHNIQUE: Axial computed tomographic angiography images of the chest with intravenous contrast. CTDI is 25.53 mGy and DLP is 801.99 mGy-cm. Automated exposure control was utilized for the study. A dose lowering technique was utilized adhering to the principles of ALARA. 3D and MIP reconstructed images were created and reviewed. COMPARISON: Chest x-ray 05-01-2024, CT chest 09/14/2022 and 07/29/2021 FINDINGS: Pulmonary arteries: No pulmonary embolism. Aorta: No thoracic aortic aneurysm or dissection. Lungs: Diffuse bilateral patchy infiltrates, most severe in the bilateral lower lobes and right upper lobe. Pleural space: No pleural effusion. No pneumothorax. Heart: Mild cardiomegaly. No pericardial effusion. No evidence of RV dysfunction. Coronary artery atherosclerotic calcifications. Bones/joints: No acute fracture. Degenerative changes of the spine. Soft tissues: Unremarkable. Lymph nodes: Unremarkable. No enlarged lymph nodes. IMPRESSION: No pulmonary embolism. Multifocal bilateral pneumonias. Electronically signed by: Ar Davidson M.D. 05/01/24 05:53 AM Chest X-Ray 05/03/24 12:29 XR chest 1V portable CLINICAL HISTORY: Pulmonary edema/pneumonia COMPARISON STUDY: Chest radiograph and chest CT May 01, 2024. FINDINGS: There is no pneumothorax. No definite pleural effusion is identified. Cardiomediastinal silhouette is stable. Interstitial thickening and bilateral alveolar opacities have significantly improved since prior chest radiograph and chest CT. IMPRESSION: Significant improvement in findings consistent with interstitial and alveolar pulmonary edema. ACT 112: Negative or not required by law. Electronically signed by: Tim Dueñas M.D. 05/03/2024 1:00 PM Pending Results Patient Have Any Pending Studies at Discharge: No Discharge Instructions Given to Patient (Per Discharging Provider) Follow-up with cardiology and nephrology Check BMP and CBC at hospital follow-up appointment Ensure completion of antibiotics Monitor BPs Total Time Total Time Spent Total Time Spent (In Minutes): A total of 55 minutes spent in discharge planning and care coordination for this pt.
== END 2024-05-03 19:32 | disposition home or self-care (01) | DRG 280 ==
LOC: ED 04:04 → 2S 06:35 → SUATTDRO 06:35 → 2S 07:37
DX: Z79.82 Long term (current) use of aspirin; Z11.52 Encounter for screening for COVID-19; J18.9 Pneumonia, unspecified organism; K21.9 Gastro-esophageal reflux disease without esophagitis; E83.42 Hypomagnesemia; J81.0 Acute pulmonary edema; I16.1 Hypertensive emergency; D50.9 Iron deficiency anemia, unspecified; J96.02 Acute respiratory failure with hypercapnia; I51.81 Takotsubo syndrome; I25.2 Old myocardial infarction; E66.9 Obesity, unspecified; J96.01 Acute respiratory failure with hypoxia; I25.10 Atherosclerotic heart disease of native coronary artery without angina pectoris; I21.4 Non-ST elevation (NSTEMI) myocardial infarction; E78.5 Hyperlipidemia, unspecified; Z79.899 Other long term (current) drug therapy; I44.7 Left bundle-branch block, unspecified; E22.2 Syndrome of inappropriate secretion of antidiuretic hormone; Z79.52 Long term (current) use of systemic steroids; Z79.84 Long term (current) use of oral hypoglycemic drugs; E87.20 Acidosis, unspecified

== ENCOUNTER 2024-05-17 03:08 | Inpatient (IN) ==
[2024-05-17 04:46] LABS: Hematocrit (blood only) 37.3 % (37.0-47.0); Hemoglobin 12.1 g/dl (12.0-16.0); Mean Corpuscular Hemoglobin 24.9 pg (25.0-34.0); Mean Corpuscular Hgb Conc 32.4 g/dL (32.0-36.0); Mean Corpuscular Volume 76.9 fL (80.0-100.0); Mean Platelet Volume 9.4 fL (9.4-12.4); Platelet Count 374 K/uL (130-400); RDW Coefficient of Variation 18.2 % (11.5-14.5); RDW Standard Deviation 50.7 fL (36.4-46.3); Red Blood Count 4.85 M/uL (4.20-5.40)
--- NOTE | 2024-05-17 04:46 | Emergency Department Note ---
History of Present Illness General Chief complaint: Shortness of Breath/Dyspnea Stated complaint: HARD TO BREATHE AND HIGH BP Time Seen by Provider: 05/17/24 04:12 History of Present Illness This 58-year-old female with a history of heart failure presents the ER complaining of chest pain and difficulty breathing. Patient states she is concerned she is fluid back again in her lung. Patient has fever, chills, cough, congestion, abdominal pain, leg pain or swelling. Home Medications Medication Instructions Recorded Confirmed Type atorvastatin 80 mg tablet 80 mg PO DAILY 05/17/24 05/17/24 History furosemide 20 mg tablet 20 mg PO DAILY 05/17/24 05/17/24 History isosorbide mononitrate 30 mg 30 mg PO DAILY 05/17/24 05/17/24 History tablet,extended release 24 hr losartan 50 mg tablet 50 mg PO DAILY 05/17/24 05/17/24 History metformin 500 mg tablet 500 mg PO BID 05/17/24 05/17/24 History metoprolol succinate 50 mg 50 mg PO BID 05/17/24 05/17/24 History tablet,extended release 24 hr omeprazole 40 mg capsule,delayed 40 mg PO BID 05/17/24 05/17/24 History release Allergies Allergy/AdvReac Type Severity Reaction Status Date / Time No Known Allergies Allergy Verified 09/13/22 22:22 Past Med/Surg History Problem List (Updated 05/17/24 @ 05:54 by Luanne Garcia PA-C) Acute hyponatremia (Acute) Hyponatremia (Acute) Chest pressure (Acute) Acute respiratory failure with hypoxia and hypercarbia (Acute) DMII (diabetes mellitus, type 2) Cardiomyopathy Acute systolic (congestive) heart failure Community acquired pneumonia Acute on chronic diastolic (congestive) heart failure Acute respiratory failure with hypoxia Acute respiratory distress (Acute) Hypertension (Acute) Pulmonary edema (Acute) Hypoxia (Acute) Tachycardia (Acute) Hyponatremia (Acute) Hypomagnesemia (Acute) Atypical chest pain Coronary artery disease (Acute) Non-ST elevation (NSTEMI) myocardial infarction Chest pain (Acute) Diastolic CHF with preserved left ventricular function, NYHA class 2 Hypertension (Acute) GERD (gastroesophageal reflux disease) (Acute) LBBB (left bundle branch block) (Acute) Hyperlipemia Hypertensive emergency (Acute) Elevated troponin I level (Acute) Acute on chronic heart failure with preserved ejection fraction (HFpEF) Respiratory failure (Acute) Acute pulmonary edema (Acute) Diabetes Medical History Takotsubo cardiomyopathy Coronary artery disease Social History Smoking Status: Never smoker Hx Alcohol Use: No Hx Substance Use: No Preferred Language: Italian Communication Ability: Effective Communication Tools: Picture Board, Physical Gestures and Bulk Sausage Casing Tier Off Cards Professor In Family Studies Required: Yes Beliefs That Will Affect Care: Alevism Alevism Beliefs: Vegetarian, no eggs, meat products, okay with dairy. marital status: Current Living Situation: Spouse and Family Current Living Situation Comment: daughter, SCHUYLER, , grandchildren current occupational status: unemployed Feels Safe at Home: Yes Assistive Devices: None Review of Systems A total of 10 systems reviewed and were otherwise negative Physical Exam Vital Signs Vital Signs - 24 hr 05/17/24 03:45 05/17/24 04:30 Pulse Rate [Apical] 68 66 Pulse Rhythm [Apical] Regular Regular Pulse Strength [Apical] Normal Respiratory Rate 16 16 Respiratory Effort / Characteristics Non-Labored Non-Labored Respiratory Depth Normal Normal Blood Pressure [Right Arm] 169/89 H 161/84 H Blood Pressure Mean [Right Arm] 115 109 Pulse Oximetry 95 95 Oxygen Delivery Method Room Air Room Air VITALS: Vitals are noted on the nurse's note and reviewed by myself. Vital signs stable. GENERAL: Pleasant female with son present to translate, in no acute distress, nondiaphoretic, well-developed well-nourished. SKIN: Capillary reflex less than 2 seconds. HEENT: Normocephalic. PERRLA. EOMI. Nares patent. Mucous membranes moist. Neck is supple without nuchal rigidity. HEART: Regular rate and rhythm LUNGS: Mild basilar rales. No retractions or accessory muscle use. ABDOMEN: Positive bowel sounds x 4. Normal tympanic percussion. Soft, nontender, without masses or organomegaly. Brown sign negative. No guarding or rebound tenderness. no CVA tenderness MUSCULOSKELETAL: No gross musculoskeletal defects. NEURO: Patient was alert and oriented to person place and time. No focal neurological deficits. Medical Decision Making Medical Records Attestation: I reviewed the patient's medical records. Home Medications Current Medication List: was personally reviewed by me Laboratory Data Attestation: I reviewed the patient's lab results. 05/17/24 03:35 05/17/24 03:35 Lab Results 05/17/24 Range/Units 03:35 WBC 12.90 H (4.8-10.8) K/ul RBC 4.85 (4.20-5.40) M/uL Hgb 12.1 (12.0-16.0) g/dl Hct 37.3 (37.0-47.0) % MCV 76.9 L (80.0-100.0) fL MCH 24.9 L (25.0-34.0) pg MCHC 32.4 (32.0-36.0) g/dL RDW Std Deviation 50.7 H (36.4-46.3) fL RDW Coeff of Roma 18.2 H (11.5-14.5) % Plt Count 374 (130-400) K/uL MPV 9.4 (9.4-12.4) fL Sodium 123 L (136-145) mmol/L Potassium TNP Chloride 91 L (98-107) mmol/L Carbon Dioxide 23 (21-32) mmol/L Anion Gap 9 (3-11) BUN 12 (6-23) mg/dl Creatinine 0.50 L (0.6-1.2) mg/dl Est Cr Clr Drug Dosing Not Reportable Est GFR ( Amer) 122.8 ml/min Est GFR (Non-Af Amer) 105.9 ml/min BUN/Creatinine Ratio 24.0 H (10-20) Glucose 122 H (70-99(Fasting)) mg/dl Calcium 9.3 (8.6-10.3) mg/dl Total Bilirubin 0.3 (0.2-1.0) mg/dl AST TNP ALT 20 (7-52) U/L Alkaline Phosphatase 103 (34-104) U/L Troponin I High Sens 19.4 H (0-14) pg/ml B-Natriuretic Peptide 61 (0-100) pg/ml Total Protein 7.6 (6.0-8.3) gm/dl Albumin 4.5 (3.4-5.0) gm/dl Globulin 3.1 (2.5-4.0) gm/dl Albumin/Globulin Ratio 1.5 (0.9-2) Lipase 68 (11-82) U/L Imaging Data Attestation: I personally reviewed and interpreted this imaging study as follows: MDM Narrative Prior records/ancillary studies reviewed. Triage Nursing notes reviewed. Additional history obtained from the family. The patient's history was concerning for respiratory difficulties. Differential diagnosis: Etiologies such as infections, reactive airway disease, pneumonia, pneumothorax, COPD, CHF, cardiac ischemia, pulmonary embolism, musculoskeletal, gastrointestinal, as well as others were entertained. Physical examination: As above. ER treatment provided: An order was placed for continuous cardiac monitoring. The monitor shows a rate of 60-100 with a sinus rhythm per my interpretation. Lasix On reassessment the patient felt better. Diagnostic interpretation by me: The electrocardiogram was ordered for SOB. ECG: Normal sinus, left bundle with a left axis, no acute ST-T wave changes, rate of 75. EKG compared to prior EKG with no acute changes noted. Pression normal sinus rhythm with left bundle branch block left axis independently interpreted by myself The labs Independently Interpreted by myself revealed hyponatremia and osmolarity levels were ordered, elevated troponin and repeat was ordered Imaging studies: Chest x-ray with mild pulmonary congestion per my independent interpretation. HEART SCORE: Hx: high/mod/low suspicion: 0 ECG: ST depression/nonspecific changes/normal: 0 Age: Greater than 65/45-64/less than 45: 1 Risk factors: (Hypertension, hyperlipidemia, diabetes, coronary disease, tobacco use, cocaine use): 2 Troponin: Greater than 2 times normal limits/1-2 times normal limits/normal: 1 Total: 4 Consultation: A consultation was placed with the hospitalist. The case was discussed and diagnostics were reviewed. The patient was evaluated in the ER for further treatment. This appears to be consistent with hyponatremia with chest pain. Osmolarity levels were ordered. Medicine is consulted Case discussed and patient will be evaluated for possible admission. By the evaluation outlined above emergent etiologies such as pulmonary embolism, reactive airway disease, pneumonia, pneumothorax, musculoskeletal, serious bacterial infections, as well as others were deemed relatively unlikely. The pt informed about the findings as listed above. All questions were answered and pleased with the treatment. condition. The chart was completed utilizing ResiModel voice recognition software. Grammatical errors, random word insertions, pronoun errors, and incomplete sentences are an occassional consequence of this system due to software limitations, ambient noise, and hardware issues. Any formal questions or concerns about the content, text, or information contained within the body of this dictation should be directly addressed to the physician lead dental assistant for clarification. Impression & Plan Chest pain, Acute hyponatremia Discharge Plan Visit Data Chief Complaint: Shortness of Breath/Dyspnea Stated Complaint: HARD TO BREATHE AND HIGH BP ED Provider: Afsaneh Morales ED Midlevel Provider: Luanne Garcia Discharge Problem: Chest pain, Acute hyponatremia Patient Disposition: Admitted As Inpatient Condition: Good Forms Stand Alone Forms: [facility] Prescriptions Prescriptions: No Action losartan 50 mg tablet 50 mg PO DAILY metformin 500 mg tablet 500 mg PO BID atorvastatin 80 mg tablet 80 mg PO DAILY metoprolol succinate 50 mg tablet extended release 24 hr 50 mg PO BID isosorbide mononitrate 30 mg tablet extended release 24 hr 30 mg PO DAILY omeprazole 40 mg capsule,delayed release(DR/EC) 40 mg PO BID furosemide 20 mg tablet 20 mg PO DAILY Referrals Referrals: Maritza Lyles MD [Primary Care Provider] - Discharge Problem: Chest pain Qualifiers: Chest pain type: unspecified Qualified Code(s): R07.9 - Chest pain, unspecified
[2024-05-17 04:54] LABS: Alanine Aminotransferase 20 U/L (7-52); Albumin Globulin Ratio 1.5 (0.9-2); Albumin Level 4.5 gm/dl (3.4-5.0); Alkaline Phosphatase 103 U/L (34-104); Anion Gap 9 (3-11); Bilirubin,Total 0.3 mg/dl (0.2-1.0); Blood Urea Nitrogen 12 mg/dl (6-23); Calcium 9.3 mg/dl (8.6-10.3); Carbon Dioxide 23 mmol/L (21-32); Chloride 91 mmol/L (98-107); Est GFR (African American) 122.8 ml/min; Est GFR (Non-African American) 105.9 ml/min; Globulin 3.1 gm/dl (2.5-4.0); Glucose 122 mg/dl (70-99(Fasting)); Lipase 68 U/L (11-82); Sodium 123 mmol/L (136-145); Total Protein 7.6 gm/dl (6.0-8.3)
[2024-05-17 04:59] LABS: Troponin I High Sensitivity 19.4 pg/ml (0-14)
--- NOTE | 2024-05-17 06:09 | History & Physical Report ---
Date of Service May 17, 2024 Assessment & Plan (1) Acute systolic (congestive) heart failure: Plan: 58-year-old female with past medical history significant for type 2 diabetes, hypertension, history of stress-induced cardiomyopathy, hyperlipidemia, GERD, iron deficiency anemia, generalized anxiety disorder presents with Chest heaviness and shortness of breath. Patient was recently in the hospital with hypertensive urgency and acute respiratory failure with hypoxia with flash pulmonary edema secondary to acute systolic CHF and non-ST elevated VT and community-acquired pneumonia and hypertensive urgency. Acute CHF thought to be stress-induced cardiomyopathy. Echo showed EF of 30 to 35% with moderate to severe global hypokinesis of the left ventricle and moderate to severe concentric LVH. Improved after dose of IV Lasix. Beta-alvarado dose was i ncreased. 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 And she was treated antibiotics for pneumonia. Patient was discharged on May 03. She was again in the ER on May 12 with chest heaviness and elevated blood pressure but after talking to the cardiology ER discharged patient home as medications were recently adjusted to follow as outpatient. She followed with cardiology on May 14, 2024 and there is a plan for repeat echo in 3 months. Patient presented with similar episodes couple of years ago and at the time initially echo showed EF of 30 to 39% thought to be stress-induced cardiomyopathy and few days later repeat echo EF improved. Patient is Beth speaking and son is in the room helped with H&P. As per son patient is taking her medication regularly and no excessive salt intake. Yesterday evening again patient blood pressure was in 200s. She was feeling dizzy. Having chest heaviness and shortness of breath which prompted him to bring her back to the hospital tonight. Patient states currently chest heaviness improved. Still feeling short of breath. No cough. No fevers. Appetite is okay. No headache. No nausea. No abdominal pain. Somewhat constipated. Micturating okay. Hemodynamics okay. Possible acute systolic CHF Stress-induced cardiomyopathy with recently echo showing EF of 30 to 35% Complains of shortness of breath Will give dose of IV Lasix 20 mg Monitor the response I's and O's and daily weights Telemetry Continue home Lasix for now Consult cardiology for further recommendations Mild elevation of troponin Possibly demand ischemia Follow serial enzymes and echo Hypertension Elevated Continue home medications of metoprolol succinate, losartan and diuretics and Imdur IV labetalol as needed Closely monitor Hyponatremia Sodium 123 Seen by nephrology recent last admission thought to be SIADH Supposed to be on urea but patient is not taking Follow serum osmolality, urine osmolality and urine sodium levels Got a dose of iv lasix 20mg Will Follow BMP every 6 hours Nephrology consulted for further recommendations Diabetes Hold metformin Sliding scale Will monitor Hyperlipidemia On statin GERD On omeprazole DVT prophylaxis Lovenox Disposition Telemetry Full code. History of Present Illness Chief Complaint: Chest pain and shortness of breath Primary Care Provider: Maritza Lyles MD 58-year-old female with past medical history significant for type 2 diabetes, hypertension, history of stress-induced cardiomyopathy, hyperlipidemia, GERD, iron deficiency anemia, generalized anxiety disorder presents with Chest heaviness and shortness of breath. Patient was recently in the hospital with hypertensive urgency and acute respiratory failure with hypoxia with flash pulmonary edema secondary to acute systolic CHF and non-ST elevated VT and community-acquired pneumonia and hypertensive urgency. Acute CHF thought to be stress-induced cardiomyopathy. Echo showed EF of 30 to 35% with moderate to severe global hypokinesis of the left ventricle and moderate to severe concentric LVH. Improved after dose of IV Lasix. Beta-alvarado dose was increased. 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 And she was treated antibiotics for pneumonia. Patient was discharged on May 03. She was again in the ER on May 12 with chest heaviness and elevated blood pressure but after talking to the cardiology ER discharged patient home as medications were recently adjusted to follow as outpatient. She followed with cardiology on May 14, 2024 and there is a plan for repeat echo in 3 months. Patient presented with similar episodes couple of years ago and at the time initially echo showed EF of 30 to 39% thought to be stress-induced cardiomyopathy and few days later repeat echo EF improved. Patient is Beth speaking and son is in the room helped with H&P. As per son patient is taking her medication regularly and no excessive salt intake. Yesterday evening again patient blood pressure was in 200s. She was feeling dizzy. Having chest heaviness and shortness of breath which prompted him to bring her back to the hospital tonight. Patient states currently chest heaviness improved. Still feeling short of breath. No cough. No fevers. Appetite is okay. No headache. No nausea. No abdominal pain. Somewhat constipated. Micturating okay. Hemodynamics okay. Past medical history as mentioned above Past surgical history. Colonoscopy and EGD. Bilateral cataracts. Social history. . No smoking. No alcohol use. No drug use. Family history no family history on file Allergies Allergy/AdvReac Type Severity Reaction Status Date / Time No Known Allergies Allergy Verified 09/13/22 22:22 Home Medications Medication Instructions Recorded Confirmed Type atorvastatin 80 mg tablet 80 mg PO DAILY 05/17/24 05/17/24 History furosemide 20 mg tablet 20 mg PO DAILY 05/17/24 05/17/24 History isosorbide mononitrate 30 mg 30 mg PO DAILY 05/17/24 05/17/24 History tablet,extended release 24 hr losartan 50 mg tablet 50 mg PO DAILY 05/17/24 05/17/24 History metformin 500 mg tablet 500 mg PO BID 05/17/24 05/17/24 History metoprolol succinate 50 mg 50 mg PO BID 05/17/24 05/17/24 History tablet,extended release 24 hr omeprazole 40 mg capsule,delayed 40 mg PO BID 05/17/24 05/17/24 History release Past Med/Surg History Problem List (Updated 05/17/24 @ 05:54 by Luanne Garcia PA-C) Acute hyponatremia (Acute) Hyponatremia (Acute) Chest pressure (Acute) Acute respiratory failure with hypoxia and hypercarbia (Acute) DMII (diabetes mellitus, type 2) Cardiomyopathy Acute systolic (congestive) heart failure Community acquired pneumonia Acute on chronic diastolic (congestive) heart failure Acute respiratory failure with hypoxia Acute respiratory distress (Acute) Hypertension (Acute) Pulmonary edema (Acute) Hypoxia (Acute) Tachycardia (Acute) Hyponatremia (Acute) Hypomagnesemia (Acute) Atypical chest pain Coronary artery disease (Acute) Non-ST elevation (NSTEMI) myocardial infarction Chest pain (Acute) Diastolic CHF with preserved left ventricular function, NYHA class 2 Hypertension (Acute) GERD (gastroesophageal reflux disease) (Acute) LBBB (left bundle branch block) (Acute) Hyperlipemia Hypertensive emergency (Acute) Elevated troponin I level (Acute) Acute on chronic heart failure with preserved ejection fraction (HFpEF) Respiratory failure (Acute) Acute pulmonary edema (Acute) Diabetes Medical History Takotsubo cardiomyopathy Coronary artery disease Social History Smoking Status: Never smoker Hx Alcohol Use: No Hx Substance Use: No Preferred Language: Finnish Communication Ability: Effective Communication Tools: Picture Board, Physical Gestures and Pill Maker Cards Vice President Business Development Required: Yes Beliefs That Will Affect Care: Judaism Judaism Beliefs: Vegetarian, no eggs, meat products, okay with dairy. marital status: Current Living Situation: Spouse and Family Current Living Situation Comment: daughter, SCHUYLER, , grandchildren current occupational status: unemployed Feels Safe at Home: Yes Assistive Devices: None Review of Systems Review of Systems: All systems reviewed & are unremarkable except as noted in HPI & below Physical Exam Physical Exam: General-Not in distress. Head- atraumatic Eyes- PERRL. ENT- oropharynx clear Neck- supple, no JVD. Lungs- clear to auscultation mild bibasilar crackles, no wheezing Heart- regular rate and rhythm; no murmur, no gallop. Abdomen- normal bowel sounds, soft, nontender, no distension Extremities- no pretibial edema, no erythema seen. Neuro- alert, oriented ; PERRL, EOMI; no facial palsy; no dysarthria; moves extremities Results & Data Results & Data Vital Signs (Past 12 Hours) Vital Signs Pulse Resp BP Pulse Ox O2 Del Method 05/17/24 04:30 66 16 161/84 H 95 Room Air 05/17/24 03:45 68 16 169/89 H 95 Room Air Diagnostic Findings Laboratory Results WBC 12.90 K/ul (4.8-10.8) H 05/17/24 03:35 RBC 4.85 M/uL (4.20-5.40) 05/17/24 03:35 Hgb 12.1 g/dl (12.0-16.0) 05/17/24 03:35 Hct 37.3 % (37.0-47.0) 05/17/24 03:35 MCV 76.9 fL (80.0-100.0) L 05/17/24 03:35 MCH 24.9 pg (25.0-34.0) L 05/17/24 03:35 MCHC 32.4 g/dL (32.0-36.0) 05/17/24 03:35 RDW Std Deviation 50.7 fL (36.4-46.3) H 05/17/24 03:35 RDW Coeff of Roma 18.2 % (11.5-14.5) H 05/17/24 03:35 Plt Count 374 K/uL (130-400) 05/17/24 03:35 MPV 9.4 fL (9.4-12.4) 05/17/24 03:35 Sodium 123 mmol/L (136-145) L 05/17/24 03:35 Potassium TNP 05/17/24 03:35 Chloride 91 mmol/L (98-107) L 05/17/24 03:35 Carbon Dioxide 23 mmol/L (21-32) 05/17/24 03:35 Anion Gap 9 (3-11) 05/17/24 03:35 BUN 12 mg/dl (6-23) 05/17/24 03:35 Creatinine 0.50 mg/dl (0.6-1.2) L 05/17/24 03:35 Est Cr Clr Drug Dosing Not Reportable 05/17/24 03:35 Est GFR ( Amer) 122.8 ml/min 05/17/24 03:35 Est GFR (Non-Af Amer) 105.9 ml/min 05/17/24 03:35 BUN/Creatinine Ratio 24.0 (10-20) H 05/17/24 03:35 Glucose 122 mg/dl (70-99(Fasting)) H 05/17/24 03:35 Calcium 9.3 mg/dl (8.6-10.3) 05/17/24 03:35 Total Bilirubin 0.3 mg/dl (0.2-1.0) 05/17/24 03:35 AST TNP 05/17/24 03:35 ALT 20 U/L (7-52) 05/17/24 03:35 Alkaline Phosphatase 103 U/L (34-104) 05/17/24 03:35 Troponin I High Sens 19.4 pg/ml (0-14) H 05/17/24 03:35 B-Natriuretic Peptide 61 pg/ml (0-100) 05/17/24 03:35 Total Protein 7.6 gm/dl (6.0-8.3) 05/17/24 03:35 Albumin 4.5 gm/dl (3.4-5.0) 05/17/24 03:35 Globulin 3.1 gm/dl (2.5-4.0) 05/17/24 03:35 Albumin/Globulin Ratio 1.5 (0.9-2) 05/17/24 03:35 Lipase 68 U/L (11-82) 05/17/24 03:35 Code Status & VTE Plan VTE Prophylaxis Plan VTE Prophylaxis will be ordered: Yes
[2024-05-17] MEDS: FUROSEMIDE INJ 20 MG/2 ML VIAL IV ONE ×2 (06:34→15:04)
[2024-05-17 06:41] LABS: Potassium 4.4 mmol/L (3.5-5.1)
[2024-05-17 06:48] LABS: Troponin I High Sensitivity 18.9 pg/ml (0-14)
--- NOTE | 2024-05-17 08:38 | XRay Report ---
XR chest 1V portable HISTORY: Shortness of breath. COMPARISON: Chest 05/12/2024. FINDINGS: No pneumothorax. No pleural effusions. The heart remains mildly enlarged. No focal lung con solidations to suggest a pneumonia. There is mild central pulmonary vascular congestion without overt edema. IMPRESSION: Cardiomegaly with mild congestive change. ACT 112: Negative or not required by law. Electronically signed by: Kevin Galarza M.D. 05/17/2024 8:37 AM
[2024-05-17] MEDS ORDERED: CARBOHYDRATES FOR HYPOGLYCEMIA PO PRN (08:41)
[2024-05-17] MEDS ORDERED: ACETAMINOPHEN 325 MG TAB PO PRN (08:41)
[2024-05-17] MEDS ORDERED: GLUCAGON FOR INJ 1 MG VIAL SQ PRN (08:41)
[2024-05-17] MEDS ORDERED: NITROGLYCERIN SL 0.4 MG/TAB TAB SL PRN (08:41)
[2024-05-17] MEDS ORDERED: DEXTROSE 50% 50 ML SYRINGE IV PRN (08:41)
[2024-05-17] MEDS ORDERED: POLYETHYLENE (MIRALAX) 17 GM PACK PO PRN (08:41)
[2024-05-17] MEDS ORDERED: LABETALOL HCL IV 5 MG/ML 20ML IV PRN (08:41)
[2024-05-17] MEDS ORDERED: GLUCOSE 10 TAB/TUBE PO PRN (08:41)
[2024-05-17] MEDS ORDERED: GLUCOSE 40% GEL 15 GM TUBE PO PRN (08:41)
--- OUTSIDE RECORDS SUMMARY | 2024-05-17 09:04 | External Medical Summary | Summary of Care ---
Author Name Unknown Organization [facility] [address] [address] Phone [phone] Care Team Providers Care Bed Worker Name Role Phone Maritza Lyles MD Primary Care Provider + Reason for Referral * Precert (Diagnostic Medical) (Within 10 days (routine)) - Authorized Specialty Diagnoses / Procedures Referred By Contac t Referred To Contact Cardiac Studies Diagnoses Stress-induced cardiomyopathy Procedures ECHO, COMPLETE (2D), TRANS-THORACIC Angeles Bowen CRNP [address] [place] [address] Referral ID Status Reason Start Date Expiration Date V isits Requested Visits Authorized [id number] Authorized Precert 08/03/2024 999 999 Reason for Visit * Reason Comments Hospital Follow-Up Rm # 3 Encounter Details Date Type Department Care Team (Late st Contact Info) Description 05/14/2024 1:30 PM EDT Office [facility], [place] [place] [phone] Angeles Bowen CRNP [address] [place] [address] Hospital discharge follow-up*; Stress-induced cardiomyopathy; Coronary artery disease involving mille lacs coronary artery of mille lacs heart without angina pectoris; LBBB (left bundle branch block); HTN, goal below 130/80; Dyslipidemia Allergies No known active allergiesdocumented as of this encounter (statuses as of 05/14/2024) Medications Medication Sig Dispensed Refills Start Date End Date Status Aspirin 81 MG Oral Capsule at bedtime. 05/23/2021 Active metFORMIN HCl 500 MG Oral Tablet (Glucophage)Indic ations:Type 2 diabetes mellitus with hemoglobin A1c goal of less than 7.0% (HCC) Take 2 Tablets by mouth 2 times a day with morning and evening meals. 360 Tablet 3 11/16/2022 Active Additional Information Patient taking differently: 500 mgOral BID (AM/PM MEALS), Reported on 05/14/2024 Omeprazole 40 MG Oral Capsule Delayed Release (PriLOSEC)Indicat ions:Gastroesopha geal reflux disease without esophagitis TAKE 1 CAPSULE BY MOUTH IN THE MORNING AND BEFORE BEDTIME 180 Capsule 1 11/28/2023 Active Atorvastatin Calcium 80 MG Oral Tablet [...] THE MORNING 90 Tablet 3 03/12/2024 Active Isosorbide Mononitrate ER 30 MG Oral Tablet Extended Release 24 Hour (Imdur)Indication s:Heart failure, unspecified HF chronicity, unspecified heart failure type (HCC) Take 1 Tablet by mouth in the morning. 30 Tablet 3 05/10/2024 Active Metoprolol Succinate ER 50 MG Oral Tablet Extended Release 24 Hour (toPROL XL) Take 1 Tablet by mouth in the morning and 1 Tablet before bedtime. 05/03/2024 Active Metoprolol Succinate ER 25 MG Oral Tablet Extended Release 24 Hour (toPROL XL) Take 1 Tablet by mouth in the morning. 90 Tablet 3 01/11/2024 4 Discontinue d(Medicatio n/Dose Changed) documented as of this encounter (statuses as of 05/14/2024) Active Problems Problem Noted Date Diagnosed Date Heart failure 05/10/2024 Iron deficiency anemia due to chronic blood [...] as of this encounter (statuses as of 05/14/2024) Immunizations Name Administration Dates Next Due Hepatitis B, 20+ yrs 11/16/2023,12/23/2022 Pneumococcal Conjugate Vacci ne, 20-valent ([id number]) 12/23/2022 Pneumococcal Polysaccharide PPV23 (Pneumovax) Seasonal Influenza, [...] Sign Reading Time Taken Comments Blood Pressure 119/73 05/14/2024 2:00 PM EDT Pulse 89 05/14/2024 2:00 PM EDT Temperature - - Respiratory Rate - - Oxygen Saturation - - Inhaled Oxygen Concentration - - Weight 83 kg (183 lb) 05/14/2024 2:00 PM EDT Height 156.2 cm (5' 1.5") 05/14/2024 2:00 PM EDT Body Mass Index 34.02 05/14/2024 2:00 PM EDT documented in this encounter Progress Notes * Angeles Bowen CRNP - 05/14/2024 1:30 PM EDT Images from the original note were not included. 05/14/2024 Cardiology Follow Up Primary Process Analyst: Dr. Quinn Cardiac Problems: 1. Stress mediated apical cardiomyopathy [id number], August 2022 with associated acute pulmonary edema, recent hospitalization 04/2024 2. Labile hypertension 3. Chronic left bundle branch block 4. Cardiac catheterization 2020 mild nonobstructive branch vessel coronary artery disease LAD diagonals 5. Hyperlipidemia HPI: Taj Laura is a 58 year old female presents for hospital discharge follow up. Patient was initially hospitalized at [facility] from 1323 through 05/03/2024 for acute respiratory failure with hypoxia and acute systolic CHF, elevated troponin, tachycardia all in the setting of pneumonia. HPI from initial hospitalization is as follows taken from the undersigned hospital consultation record: HPI: Patient is a 58 year old female with PMHx significant for stress induced cardiomyopathy, HTN, HLD, GERD, MILEY, DM Type II, and NEELAM. Patient's primary language is Beth. Daughter is present and able to translate per patient's request. patient had returned from a recent trip to [facility], and last night developed feeling of shortness of breath, nausea, a isolated vomiting episode. She was brought to the ED, found to be hypoxic, initiallyplaced on a NRB, but transitioned to Bipap which is now off of patient at time of exam. Denies any chest pain, pressure or palpitations. Endorses dyspnea, but significant improvement since arrival at the hospital. No pre-syncope, syncope or edema. Denies any missed medications and no dietary indiscretion. Initial EKG on admission demonstrates ST, poor quality tracing, presence of a Left BBB, Rate 157bpm. Chest xray: IMPRESSION: 1. Mixed interstitial and alveolar opacities with consolidation most pronounced in the right mid lung and right lung base. Findings may represent pulmonary edema versus multifocal pneumonia. 2. Trace pleural effusions. Chest CT: IMPRESSION: No pulmonary embolism. Multifocal bilateral pneumonias. Review of telemetry shows ST rates 120's. Plan: -Patient's respiratory status improved at the time of examination. -acute respiratory failure in the setting of evidence of acute heart failure and pneumonia. -Patient carries a history of stress induced cardiomyopathy in her past with a prior cardiac cath in 2020 which demonstrated branch vessel disease involving the first and second diagonal as follows: Coronary Anatomy Dominant: Left Left Main (% Stenosis): Normal LAD (% Stenosis): Proximal (20%), Mid (20%) and Distal (20%) D1 (% Stenosis): Ostial (50%) D2 (% Stenosis): Ostial (70%) Circumflex (% Stenosis): Mid (30%) and Distal (10%) OM1 (% Stenosis): Normal (1.5mm vessel) OM2 (% Stenosis): Normal L PL1 (% Stenosis): Normal L PL2 (% Stenosis): Normal L PDA (% Stenosis): Proximal (30%) RCA (% Stenosis): Proximal (20%) Ramus (% Stenosis): Normal (small vessel) -Patient is also notably hypertensive which is likely multifactorial and can be contributing to herabnormal echo findings. -Tachycardic (with presence of a Left BBB) upon review on telemetry in the setting of acute respiratory distress and an acute infectious process. -High sensitivity troponin 614.4 and 685.7. Trend to peak. -At this time continue ASA 81mg, Atorvastatin 80mg, Losartan 50mg daily and Toprol xl 25mg BID. -Continued Antibiotics for pneumonia as per management of primary team. -Will discuss echocardiogram findings as well as prior cath with Dr. Chao Unfortunately patient had returned to the emergency department at [facility] on 05/12/2024 complaints of chest pressure / heaviness, elevated blood pressure readings noted at home. Per review of no patient had felt well at time of prior discharge on 05/03 but developed new symptoms 1 day prior to ED presentation. Workup was essentially unremarkable and case have been discussed with on-call despatch clerk a plan at that time was for patient to be discharged from the ED as she has close follow up with Cardiology today. Patient presents today feeling well. The ED had increased her Metoprolol and since then son reportsblood pressures are good. Of note, patient's primary language is [facility], son has accompanied patient and will be doing translation. Difficult to obtain correct dialect with language line. Denies any chest pain, pressure or palpitations, no shortness of breath, PND, presyncope, syncope or edema. Compliant on all medication therapies with no untoward effects. REVIEW OF SYSTEMS: See HPI for pertinent positives. All others negative other than those noted in the HPI. CONSTITUTIONAL: No change in weight, No weakness, No fatigue and No fevers, No sweats or chills. PULMONARY: No cough, sputum, or hemoptysis, No wheezing, No shortness or breath and No recent change in breathing. CARDIOVASCULAR: No chest pain, No dyspnea on exertion, No edema, No palpitations and No syncope. GASTROINTESTINAL: No abdominal pain, No change in bowel habits, No significant heartburn, No nausea, No vomiting, No diarrhea, No constipation, No blood in stools or black tarry stools. No dysphagia. HEMATOLOGIC: No abnormal bleeding and No bruising. NEUROLOGICAL: Normal balance, No headaches and No weakness. Review of patient's allergies indicates: No Known Allergies Current Outpatient Medications Medication Sig Dispense Refill Aspirin 81 MG Oral Capsule at bedtime. metFORMIN HCl 500 MG Oral Tablet (Glucophage) Take 2 Tablets by mouth 2 times a day with morning and evening meals. (Patient taking differently: Take 1 Tablet by mouth 2 times a day with morning and evening meals.) 360 Tablet 3 Omeprazole 40 MG Oral Capsule Delayed Release (PriLOSEC) TAKE 1 CAPSULE BY MOUTH IN THE MORNING ANDBEFORE BEDTIME 180 Capsule 1 Atorvastatin Calcium 80 MG Oral Tablet (Lipitor) TAKE 1 TABLET BY MOUTH EVERY DAY IN THE MORNING (Patient taking differently: Take 1 Tablet by mouth at bedtime.) 90 Tablet 3 Furosemide 20 MG Oral Tablet (Lasix) TAKE 1 TABLET BY MOUTH EVERY DAY IN THE MORNING 90 Tablet 3 Isosorbide Mononitrate ER 30 MG Oral Tablet Extended Release 24 Hour (Imdur) Take 1 Tablet by mouthin the morning. 30 Tablet 3 Metoprolol Succinate ER 50 MG Oral Tablet Extended Release 24 Hour (toPROL XL) Take 1 Tablet by mouth in the morning and 1 Tablet before bedtime. No current facility-administered medications for this visit. Past Medical History: Diagnosis Date Coronary artery disease involving mille lacs coronary artery of mille lacs heart without angina pectoris NEELAM (generalized anxiety disorder) Gastroesophageal reflux disease without esophagitis Hyperlipidemia LDL goal <100 Primary hypertension Type 2 diabetes mellitus without complication, without long-term current use of insulin (HCC) No family history on file. Social History Socioeconomic History Marital status: Tobacco Use Smoking status: Never Smokeless tobacco: Never Vaping Use Vaping status: Never Used Substance and Sexual Activity Alcohol use: Never Drug use: Never Social Determinants of Health Social Connections OBJECTIVE/PHYSICAL EXAMINATION: BP 119/73 (BP Site: Right Arm, BP Position: Sitting, BP Cuff Size: Large) | Pulse 89 | Ht 1.562 m (5' 1.5") | Wt 83 kg (183 lb) | BMI 34.02 kg/m | BSA 1.9 m General: No acute distress. A+Ox3. HEENT: Normocephalic. Atraumatic. PERRL. EOMI. Conjunctiva and sclera clear. NECK: No carotid bruits. No JVD. Carotid upstrokes are brisk. Heart: RRR. S1 and S2 noted. No murmur. No rubs or gallops. PMI non displaced. Lungs: Clear to auscultation. No wheezes.No rhonchi. No rales. Abdomen: Normal bowel sounds. Soft. Nontender. No masses or organomegaly. No abdominal bruits. Extremities: No edema. No clubbing or cyanosis. Pulses: radial=2/4, posterior tibial=2/4, dorsalis pedis = 2/4. NEURO: No focal deficits. PSYCH: Appropriate affect and insight. DATA Labs & Imaging Reviewed Below: EKG 05/12/2024: ([facility]) NSR Left BBB Rate 93bpm Unchanged from prior. Echocardiogram 05/01/2023 ASSESSMENT/PLAN: 58 year old year old female 1. Hospital discharge follow-up 2. Stress-induced cardiomyopathy -Known history of stress induced cardiomyopathy in the setting of an acute infectious process. -Euvolemic on exam. -Patient is to have a repeat limited echo at 3 month interval to reassess LVEF. -Continue Metoprolol succinate 50mg PO BID -Continue Furosemide 20mg Daily - ECHO, COMPLETE (2D), TRANS-THORACIC; Future 3. Coronary artery disease involving mille lacs coronary artery of mille lacs heart without angina pectoris 4. LBBB (left bundle branch block) -Chronic Left BBB -EKG with no ischemic changes -Recent cardiac cath demonstrating normal coronaries -Continue Furosemide, Atorvastatin, Imdur, Toprol xl and ASA 81mg 5. HTN, goal below 130/80 -Well controlled today. -Continue Furosemide, Imdur and Toprol xl 6. Dyslipidemia -Continue Atorvastatin and ASA DISPOSITION: Follow up 4 months at or if symptoms worsen/fail to improve. All questions were answered to the patients satisfaction. Patient advised to report to ED with any and all emergencies. The patient agrees to the above plan and will call with additional questions or concerns. NICCI Ordoñez Cardiology[address] [address] I spent a total of 50 minutes on the date of service in preparation, delivery, and documentation ofthe care provided to Taj Laura excluding any time spent in the performance of separately billed services. This chart was completed in part utilizing [employer] Voice Recognition Software. Grammatical errors, random word insertions, pronoun errors, and incomplete sentences are an occasional consequence of this system due to software limitations, ambient noise, and hardware issues. Any formal questions or concerns about the content, text, or information contained within the body of this dictation should be directly addressed to the provider for clarification. documented in this encounter Nursing Notes * Brynn Jeter NRA - 05/14/2024 1:51 PM EDT Examination Room: 3 Name: Taj Laura Date of : (1965). Reason for Visit: hospital follow up Interim Hospitalization(s): 05/12/24 [facility] Ed Problems/Concerns: No cardiac complaints today. Chest Pain/SOB: no CP. Admits DUMONT (per son) Medications were updated via: pt/son memory. [facility] is a way you can talk to your provider online through e-mail. Would you like to sign up? I can activate it for you? ALREADY ACTIVE Patient was instructed to not get up on the exam table until directed and assisted by their provider; patient is to remain seated in the chair/ wheelchair/ exam table for fall prevention and safety reasons. Patient is aware to have assistance to step down off exam table with personnel. Patient voiced full comprehension of instructions. documented in this encounter Plan of Treatment Upcoming Encounters Date Type Department Care Team (Late st Contact Info) Description 07/02/2024 3:00 PM EDT Laboratory Laboratory [facility] [place] [address] [place] [address] [id number] [address] [place] [address] [place] [id number] 07/02/2024 3:30 PM EDT Office Visit Hematology/Oncolog y [facility] [place] [address] [place] [id number] Raquel Edmond CRNP [address] [place] [address] [place] [address] 07/05/2024 7:30 AM EDT Office Visit Ophthalmology, [facility] [address] [facility] [place] [address] Cameron Molina DO [address] [facility] [place] [address] 08/03/2024 3:00 PM EST Cardiac Studies Cardiac Studies, [facility] [address] [place] [address] 08/14/2024 4:00 PM EST Office Visit General Internal Medicine [facility] [address] [place] [address] Maritza Lyles MD [address] [place] [address] 09/03/2024 3:00 PM EST Office Visit Cardiology, [facility] [address] [place] [address] Livia Crabtree PA-C [address] [facility] [place] [address] 09/11/2024 1:30 PM EST Hospital Encounter ENDO [facility], Endoscopy Room [facility] [address] [facility] [place] [phone] Maya Quiñones DO 132 [facility] [place] [address] 09/11/2024 1:30 PM EST - 09/11/2024 2:30 PM EST Surgery ENDO [facility], Endoscopy Room [facility] [address] [place] [phone] Maya Quiñones DO 132 [facility] [place] [address] COLONOSCOPY FLEXIBLE PROXIMAL DIAGNOSTIC 03/29/2025 4:30 PM EDT Imaging Radiology [facility] [address] [place] [address] 05/23/2025 10:15 AM EDT Office Visit Ophthalmology, [facility] [address] [facility] [place] [address] Cameron Molina, DO [address] [facility] [place] [address] Scheduled Orders Name Type Priority Associated Diagnoses Orde r Schedule ECHO, COMPLETE (2D), TRANS-THORACIC Echocardiology Routine Stress-induced cardiomyopathy Expected: 08/03/2024 (Approximate), Expires: 05/14/2025 Scheduled Procedures Name Priority Associated Diagnoses Date/Ti [...] COVID-19 Vaccine (2022- season) 2023 12/23/2020, 12/02/2020 Mammogram 12/30/2023 12/29/2022, 12/29/2022 Hepatitis B Vaccine (3 of 3 - 19+ 3-dose series) 01/11/2024 11/16/2023, 12/23/2022 Influenza Vaccine (FLU shot) (#1) 2024 08/24/2023, 09/24/2022 HbA1c 08/16/2024 02/14/2024, 06/19, 10/04/2022, Additional history exists Diabetic Foot Exam 08/24/2024 08/24/2023, 11/03/2021 Diabetic Eye Exam 01/04/2025 01/05/2024, , 01/05/2024, Additional history exists Albumin/Creatinine Ratio 05/10/2025 024, 10/04/2022, 11/03/2021, Additional history exists GFR 05/10/2025 05/10/2024, 0504/2024, 06/28/2023, Additional history exists Lipid Panel 02/13/2029 02/14/2024, [...] this encounter Medical Devices Implanted Type Area Neuroscientist Device Identifier Shelf Expiration Date Model / Serial / Lot Lens [id number] 12.5mm+20.00 - [id number] - [id number] Implanted:Qty: 1 on 03/07/2024 by Cameron Molina, at OR [facility] Left: Eye [employer] 10/19/2026 [id number] / [id number] / [id number] Lens [id number] 12.5mm+22.00 - [id number] - [id number] Implanted:Qty: 1 on 04/04/2024 by Cameron Molina DO at OR [facility] Right: Eye [employer] 07/19/2026 [id number] / [id number] / [id number] documented as of this encounter Visit Diagnoses Diagnosis Hospital discharge follow-up- Primary Other follow-up examination Stress-induced cardiomyopathy Takotsubo syndrome Coronary artery disease involving mille lacs coronary artery of mille lacs heart without angina pectoris LBBB (left bundle branch block) Other left bundle branch block HTN, goal below 130/80 Unspecified essential hypertension Dyslipidemia Other and unspecified hyperlipidemia Screen for colon cancer Special screening for [...] Discussed due to patient's condition Care Teams Bed Worker Relationship Specialty Start Date End Date Maritza Lyles MD [address] [place] [address] PCP - General Internal Medicine 10/03/20 documented as of this encounter
--- OUTSIDE RECORDS SUMMARY | 2024-05-17 09:04 | External Medical Summary | Summary of Care ---
Author Name Unknown Organization [facility] Address [address] [place] [address] Phone [phone] Care Team Providers Care Envelope Maker Name Role Phone Maritza Lyles MD Primary Care Provider + Reason for Visit * Reason Onset Date Comments Remote Patient Monitoring Alert 05/14/2024 Bodyport weights and home blood pressure readings Encounter Details Date Type Department Care Team (Late st Contact Info) Description 05/14/2024 Home Monitoring Care Coordination and Integration [address], [place] [id number] Angeles Bowen CRNP [address] [facility][1][place] [address] Heart failure, unspecified HF chronicity, unspecified heart failure type (HCC)*; HTN, goal below 130/80 Allergies No known active allergiesdocumented as of this encounter (statuses as of 05/14/2024) Medications Medication Sig Dispensed Refills Start Date End Date Status Aspirin 81 MG Oral Capsule at bedtime. 05/23/2021 Active metFORMIN HCl 500 MG Oral Tablet (Glucophage)Indica tions:Type 2 diabetes mellitus with hemoglobin A1c goal of less than 7.0% ([facility]) Take 2 Tablets by mouth 2 times a day with morning and evening meals. 360 Tablet 3 11/16/2022 Active Omeprazole 40 MG Oral Capsule Delayed Release (PriLOSEC)Indicati ons:Gastroesophage al reflux disease without esophagitis TAKE 1 CAPSULE BY MOUTH IN THE MORNING AND BEFORE BEDTIME 180 Capsule 1 11/28/2023 Active Metoprolol Succinate ER 25 MG Oral Tablet Extended Release 24 Hour (toPROL XL) Take 1 Tablet by mouth in the morning. 90 Tablet 3 01/11/2024 Active Additional Information Patient taking differently: 50 mgOralBID (.AM/PM), Reported on 05/04/2024 Atorvastatin Calcium 80 MG Oral Tablet (Lipitor)Indicatio [...] MG Oral Tablet Extended Release 24 Hour (Imdur)Indications :Heart failure, unspecified HF chronicity, unspecified heart failure type (HCC) Take 1 Tablet by mouth in the morning. 30 Tablet 3 05/10/2024 Active documented as of this encounter (statuses [...] yrs 11/16/2023,12/23/2022 Pneumococcal Conjugate Vacci ne, 20-valent ([id number]) 12/23/2022 Pneumococcal Polysaccharide PPV23 (Pneumovax) Seasonal Influenza, [...] as of this encounter Progress Notes * Eva Brito RN - 05/14/2024 6:53 AM EDT Images from the original note were not included. Bodyport weights and home blood pressure readings: documented in this encounter Plan of Treatment Upcoming Encounters Date Type Department Care Team (Late st Contact Info) Description 05/14/2024 1:30 PM EDT Office Visit Cardiology, [place] [address] [place] [address] [place] [id number] Angeles Bowen CRNP 132 [facility] [place] [address] 07/02/2024 3:00 PM EDT Laboratory Laboratory [facility] [address] [place] [phone] April Ware [facility] [address] [place], [place] [address] 07/02/2024 3:30 PM EDT Office Visit Hematology/Oncolog y [facility] [address] [place] [phone] Raquel Edmond CRNP 400 [facility] [place] [address] 07/05/2024 7:30 AM EDT Office Visit Ophthalmology, [facility] [address] [place] [address] Cameron Molina DO [address] [place] [address] 08/14/2024 4:00 PM EST Office Visit General Internal Medicine [facility] [address] [place], [place] [address] Maritza Lyles MD 200 [facility] [place] [address] 09/11/2024 1:30 PM EST Hospital Encounter ENDO OSS, Endoscopy Room [facility] [address] [place] [phone] Maya Quiñones DO [address] [place] [address] 09/11/2024 1:30 PM EST - 09/11/2024 2:30 PM EST Surgery ENDO OSSC, Endoscopy Room [facility] [address] [place] [phone] Maya Quiñones DO [address] [place] [address] COLONOSCOPY FLEXIBLE PROXIMAL DIAGNOSTIC 03/29/2025 4:30 PM EDT Imaging Radiology [facility] 1st [facility] [address] [place] [address] 05/23/2025 10:15 AM EDT Office Visit Ophthalmology, [facility] [address] [place] [address] Cameron Molina, DO [address] [facility] [address] [place] [address] Scheduled Procedures Name Priority Associated Diagnoses Date/Ti [...] COVID-19 Vaccine ( season) 2023 12/23/2020, 12/02/2020 Mammogram 12/30/2023 12/29/2022, 12/29/2022 Hepatitis B Vaccine (3 of 3 - 19+ 3-dose series) 01/11/2024 11/16/2023, 12/23/2022 Influenza Vaccine (FLU shot) (#1) 2024 08/24/2023, 09/24/2022 HbA1c 08/16/2024 02/14/2024, 06/19, 10/04/2022, Additional history exists Diabetic Foot Exam 08/24/2024 08/24/2023, 11/03/2021 Diabetic Eye Exam 01/04/2025 01/05/2024, , 01/05/2024, Additional history exists Albumin/Creatinine Ratio 05/10/202505/10/2 024, 10/04/2022, 11/03/2021, Additional history exists GFR 05/10/2025 05/10/2024, 01/18, 06/28/2023, Additional history exists Lipid Panel 02/13/2029 [...] this encounter Medical Devices Implanted Type Area Firearms Model Maker Device Identifier Shelf Expiration Date Model / Serial / Lot Lens [id number] 12.5mm+20.00 - [id number] - [id number] Implanted:Qty: 1 on 03/07/2024 by Cameron Molina DO at OR [facility] Left: Eye [employer] 10/19/2026 [id number] / [id number] / [id number] Lens [id number] 12.5mm+22.00 - [id number] - [id number] Implanted:Qty: 1 on 04/04/2024 by Cameron Molina DO at OR [facility] Right: Eye [employer] 07/19/2026 [id number] / [id number] / [id number] documented as of this encounter Visit Diagnoses Diagnosis Heart failure, unspecified HF chronicity, unspecified heart failure type (HCC)- Primary HTN, goal below 130/80 Unspecified essential hypertension Screen for colon cancer Special screening for [...] Discussed due to patient's condition Care Teams Envelope Maker Relationship Specialty Start Date End Date Maritza Lyles MD 200 [facility] [place] [address] PCP - General Internal Medicine 10/03/20 documented as of this encounter
[2024-05-17] MEDS ORDERED: Patient's HEIGHT &/or WEIGHT Needed SCH (09:15)
[2024-05-17] MEDS: INSULIN ASPART PER UNIT CHARGE SC SCH (09:35)
[2024-05-17 09:40] LABS: Basophils # (auto) 0.06 K/uL (0.00-0.20); Basophils % (auto) 0.6 %; Hematocrit (blood only) 35.9 % (37.0-47.0); Hemoglobin 12.2 g/dl (12.0-16.0); Immature Granulocytes # (auto) 0.08 K/uL (0.01-0.20); Immature Granulocytes % (auto) 0.8 %; Lymphocytes # (auto) 3.07 K/uL (1.20-3.40); Lymphocytes % (auto) 30.3 %; Mean Corpuscular Hemoglobin 25.5 pg (25.0-34.0); Mean Corpuscular Volume 75.1 fL (80.0-100.0); Mean Platelet Volume 9.6 fL (9.4-12.4); Monocytes # (auto) 0.77 K/uL (0.11-0.59); Monocytes % (auto) 7.6 %; Neutrophils # (auto) 6.06 K/uL (1.40-6.50); Neutrophils % (auto) 59.7 %; Platelet Count 373 K/uL (130-400); RDW Coefficient of Variation 18.1 % (11.5-14.5); RDW Standard Deviation 49.6 fL (36.4-46.3); Red Blood Count 4.78 M/uL (4.20-5.40); White Blood Count 10.14 K/ul (4.8-10.8)
[2024-05-17 09:55] LABS: Anion Gap 10 (3-11); BUN Creatinine Ratio 23.8 (10-20); Blood Urea Nitrogen 10 mg/dl (6-23); Calcium 9.5 mg/dl (8.6-10.3); Carbon Dioxide 26 mmol/L (21-32); Chloride 93 mmol/L (98-107); Est GFR (Non-African American) 112.2 ml/min; Glucose 118 mg/dl (70-99(Fasting)); Magnesium 1.6 mg/dl (1.7-2.4); Potassium 4.1 mmol/L (3.5-5.1); Sodium 129 mmol/L (136-145)
[2024-05-17 10:01] LABS: Troponin I High Sensitivity 15.1 pg/ml (0-14)
--- NOTE | 2024-05-17 10:27 | Hospitalist Progress Note ---
Date of Service May 17, 2024 Assessment & Plan (1) Acute systolic (congestive) heart failure: Plan: 58-year-old female with past medical history significant for type 2 diabetes, hypertension, history of stress-induced cardiomyopathy, hyperlipidemia, GERD, iron deficiency anemia, generalized anxiety disorder presents with Chest heaviness and shortness of breath. Patient was recently in the hospital with hypertensive urgency and acute respiratory failure with hypoxia with flash pulmonary edema secondary to acute systolic CHF and non-ST elevated PA and community-acquired pneumonia and hypertensive urgency. Acute CHF thought to be stress-induced cardiomyopathy. Echo showed EF of 30 to 35% with moderate to severe global hypokinesis of the left ventricle and moderate to severe concentric LVH. Improved after dose of IV Lasix. Beta-alvarado dose was i ncreased. 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 Patient was discharged on May 03. She was again in the ER on May 12 with chest heaviness and elevated blood pressure but after talking to the cardiology ER discharged patient home as medications were recently adjusted to follow as outpatient. She followed with cardiology on May 14, 2024 and there is a plan for repeat echo in 3 months. Patient presented with similar episodes couple of years ago and at the time initially echo showed EF of 30 to 39% thought to be stress-induced cardiomyopathy and few days later repeat echo EF improved. Patient found her BP to be elevated to SBP of 200s a day prior to admission. She reported feeling dizzy and started to feel short of breath which prompted her to come to ED. Acute on chronic systolic CHF Stress-induced cardiomyopathy with recently echo showing EF of 30 to 35% Recent hospitalization for flash pulmonary edema; found to have stress-induced cardiomyopathy Chest x-ray personally reviewed; cardiomegaly with mild pulmonary edema BNP within normal limits Nephrology evaluated the patient; patient was given 1 extra dose of Lasix 30 mg IV. Home Lasix increased to 40 mg once a day Strict input and output monitoring Mild elevation of troponin High sensitive troponin with flat trend Echo pending Hypertensive urgency Will increase her losartan to 50 mg twice a day Will add amlodipine 5 mg once a day Lasix increased to 40 mg once a day Continue on metoprolol, Imdur. Hyponatremia Sodium 123--> 127 Seen by nephrology recent last admission thought to be SIADH Continue fluid restriction of 1500 cc, continue Lasix. Type 2 Diabetes Hold metformin Sliding scale Will monitor Hyperlipidemia On statin, continue GERD On omeprazole, continue DVT prophylaxis Lovenox Disposition Telemetry Full code. Discussed with patient's family at bedside. Please note the above document was generated using voice recognition software. It may contain grammatical, syntax or spelling errors. Any formal questions or concerns about the content, text or information contained within the body of this dictation should be directly addressed to the provider for clarification Admission and Anticipated Discharge Date Admission Date: May 17, 2024 Subjective Patient seen and examined at bedside. Comfortable; not in distress. Reports some neck pain. Reports that her breathing is slightly better. Blood pressure overall improved; saturating well on room air Review of Systems Review of Systems: All systems reviewed & are unremarkable except as noted in Subjective Physical Exam Physical Exam: General-Not in distress. Head- atraumatic Eyes- PERRL. ENT- oropharynx clear Neck- supple, no JVD. Lungs- Bilateral clear breath sound Heart- regular rate and rhythm; no murmur, no gallop. Abdomen- normal bowel sounds, soft, nontender, no distension Extremities- no pretibial edema, no erythema seen. Neuro- alert, oriented ; PERRL, EOMI; no facial palsy; no dysarthria; moves extremities Results & Data Results & Data Vital Signs (Past 12 Hours) Vital Signs Pulse Resp BP Pulse Ox O2 Del Method 05/17/24 06:00 69 18 156/91 H 95 Room Air 05/17/24 04:30 66 16 161/84 H 95 Room Air 05/17/24 03:45 68 16 169/89 H 95 Room Air
[2024-05-17] MEDS: FUROSEMIDE 20 MG TAB PO SCH (10:56)
[2024-05-17] MEDS: PANTOprazole 40 MG TAB PO SCH (10:56)
[2024-05-17] MEDS: ATORVASTATIN 40 MG TAB PO SCH (10:56)
[2024-05-17] MEDS: ISOSORBIDE MONO EXTENDED REL 30 MG TABCR PO SCH (10:56)
[2024-05-17] MEDS: METOPROLOL SUCC 50MG EXT REL TAB PO SCH (10:56)
[2024-05-17] MEDS: LOSARTAN POTASSIUM 50 MG TAB PO SCH ×2 (10:57→21:21)
[2024-05-17] MEDS: amLODIPine BESYLATE 5 MG TAB PO SCH (12:09)
[2024-05-17 12:30] LABS: BUN Creatinine Ratio 22.2 (10-20); Calcium 9.5 mg/dl (8.6-10.3); Creatinine Clr Calc Pharmacy 130.6 ml/min; Est GFR (African American) 127.1 ml/min; Est GFR (Non-African American) 109.7 ml/min; Potassium 4.1 mmol/L (3.5-5.1)
--- NOTE | 2024-05-17 12:48 | Nephrology Consultation ---
Date of Consultation May 17, 2024 Assessment & Plan (1) Hyponatremia: hyponatremia in the setting of pulmonary edema and history of systolic congestive heart failure. Given this we have to assume this is the primary cause and treat with IV Lasix for adequate diuresis. However her sodium has been somewhat low for the last few years and given this she most likely has some underlying SIADH also. But creatinine did go up very promptly from 123-129 with the use of IV Lasix. She then received D5 water briefly which dropped the sodium do 127. At this time I would treat hyponatremia exclusively with fluid restriction to 50 oz per day low-salt diet and higher dose of oral Lasix. No need to use urea in her case as long as we are able to manage the hyponatremia with Lasix and fluid /salt restriction (2) Acute systolic (congestive) heart failure: her last ejection fraction was only 30-35% on the echocardiogram done May 01, 2024. She has history of takotsubo cardiomyopathy where she had sudden drop in ejection fraction followed by sudden improvement. she needs more Lasix and would increase the dose to 40 p.o. daily for outpatient. Also increase the dose of losartan to 100 given CHF and high blood pressure. give another dose of 30 mg IV x1 now (3) Hypertensive urgency: extremely high blood pressure on presentation with pulmonary edema. her last ejection fraction was only 30-35% 2 weeks ago. with IV Lasix blood pressure has come down somewhat. I believe patient needs much stronger dose of diuretics to make her blood pressure in normal range. will give Lasix 30 mg IV x1 again. as outpatient she takes Lasix 20 mg daily which will be increased to 40 daily. She might need even higher dose Plan above plan discussed with primary team and in agreement. total time spent 62 minutes History of Present Illness Reason for Consultation: Hyponatremia Attending Physician: Pj Mcintyre MD History of Present Illness 58/F with longstanding history of chronic mild hyponatremia presented to the hospital yesterday because her blood pressure was too high at home. She was also more hyponatremic at 123 than her usual level which is in the 129 range. she was also somewhat short of breath and chest x-ray did reveal congestive heart failure in fact she had very similar presentation 2 weeks ago. she has history of type 2 diabetes, hypertension, history of stress-induced cardiomyopathy, hyperlipidemia, GERD, iron deficiency anemia, generalized anxiety disorder presents with Chest heaviness and shortness of breath. Patient was recently in the hospital with hypertensive urgency and acute respiratory failure with hypoxia with flash pulmonary edema secondary to acute systolic CHF and non-ST elevated [place] and community-acquired pneumonia and hypertensive urgency. Acute CHF thought to be stress-induced cardiomyopathy. Echo showed EF of 30 to 35% with moderate to severe global hypokinesis of the left ventricle and moderate to severe concentric LVH. Improved after dose of IV Lasix. Beta-alvarado dose was increased. 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 And she was treated antibiotics for pneumonia. Patient was discharged on May 03. She was again in the ER on May 12 with chest heaviness and elevated blood pressure but after talking to the cardiology ER discharged patient home as medications were recently adjusted to follow as outpatient. She followed with cardiology outpt on May 14, 2024 and there is a plan for repeat echo in 3 months. Patient presented with similar episodes couple of years ago and at the time initially echo showed EF of 30 to 39% thought to be stress-induced cardiomyopathy and few days later repeat echo EF improved. her current dose of Lasix is only 20 mg daily. she was discharged on urea but she is not taking her current fluid intake is about 70 oz per day. Her protein intake seems average. she does not have any nausea vomiting diarrhea any chronic pain. Review of systems is as detailed in HPI unless stated otherwise 12 systems reviewed and negative physical examination middle-aged female who speaks Jassi. I can understand jassi 100% but I can not speak. However I did communicate in jayson language with the patient. she is awake alert oriented x3 no respiratory distress at this time and lying in the bed in full supine position. mucous membranes moist neck is supple no JVD chest bilateral clear to auscultation CVS S1 and S2 regular no murmur rub or gallop heard abdomen is soft nontender. No costovertebral angle tenderness extremities shows no edema no skin rash Allergies Allergy/AdvReac Type Severity Reaction Status Date / Time No Known Allergies Allergy Verified 09/13/22 22:22 Home Medications Medication Instructions Recorded Confirmed Type atorvastatin 80 mg tablet 80 mg PO DAILY 05/17/24 05/17/24 History furosemide 20 mg tablet 20 mg PO DAILY 05/17/24 05/17/24 History isosorbide mononitrate 30 mg 30 mg PO DAILY 05/17/24 05/17/24 History tablet,extended release 24 hr losartan 50 mg tablet 50 mg PO DAILY 05/17/24 05/17/24 History metformin 500 mg tablet 500 mg PO BID 05/17/24 05/17/24 History metoprolol succinate 50 mg 50 mg PO BID 05/17/24 05/17/24 History tablet,extended release 24 hr omeprazole 40 mg capsule,delayed 40 mg PO BID 05/17/24 05/17/24 History release Patient History Medical History Takotsubo cardiomyopathy Coronary artery disease Social History Smoking Status: Never smoker Hx Alcohol Use: No Hx Substance Use: No Preferred Language: [facility] Communication Ability: Effective Communication Tools: Picture Board, Physical Gestures and Carpet Cleaner Cards Cloth Desizing Range Tender Required: Yes Beliefs That Will Affect Care: [employer] L[employer] Beliefs: Vegetarian, no eggs, meat products, okay with dairy. marital status: Current Living Situation: Family Current Living Situation Comment: daughter, SCHUYLER, , grandchildren current occupational status: unemployed Feels Safe at Home: Yes Assistive Devices: None Results & Data Vital Signs (Past 12 Hours) Vital Signs Pulse Resp BP Pulse Ox O2 Del Method 05/17/24 12:00 68 18 152/86 H 97 Room Air 05/17/24 10:32 77 20 183/98 H 98 Room Air 05/17/24 06:00 69 18 156/91 H 95 Room Air 05/17/24 04:30 66 16 161/84 H 95 Room Air 05/17/24 03:45 68 16 169/89 H 95 Room Air Laboratory Results reviewed CBC renal panel chest x-ray urine osmolarity urine sodium most recent echocardiogram from 05/01/24
[2024-05-17] MEDS: ENOXAPARIN INJ 40 MG/0.4 ML SYR SQ ONE (12:50)
[2024-05-17] MEDS: DEXTROSE 5% 1,000 ML IV SCH (12:55)
--- NOTE | 2024-05-17 14:37 | Cardiology Consultation ---
Date of Consultation May 17, 2024 Assessment & Plan (1) Hypertensive urgency: (2) Acute hyponatremia: (3) Cardiomyopathy: * Index of suspicion for an acute coronary syndrome is low. Troponin actually significantly improved compared to hospital stay 2 weeks ago. * Still difficult to discern why the patient has labile hypertension. Patient daughter states that she has been adherent to her medications. * Sodium is trending toward improvement, nephrology input noted and appreciated * Continue oral furosemide with dose increased to 40 mg as per nephrology. * Continue metoprolol succinate 50 mg twice daily, losartan 50 mg twice daily, amlodipine 5 mg daily, Lovenox for DVT prophylaxis * Plan for repeat limited echo to reassess LV systolic function on 05/18/2024 in effort to distinguish between stress-induced cardiomyopathy and that related to left bundle branch block. History of Present Illness Attending Physician: Pj Mcintyre MD History of Present Illness Taj Laura is 58-year-old female whose primary language is Beth seen in cardiology consultation per the request of Dr Jones for the evaluation of chest pain and history of congestive heart failure. Her cardiac history dates back to May, when she presented with hypertensive urgency, congestive heart failure, and intermittent left bundle branch block. Cardiac catheterization performed at that time revealed mild nonobstructive coronary heart disease. The patient was discharged on medications including aspirin, furosemide 40 mg daily, losartan 50 mg daily, and metoprolol. She had a similar presentation a month later in June,. In August, she had a similar presentation and at that time echocardiogram revealed an interval decline in ejection fraction from 50-55 percent, to the range of 35 to 39% with findings suggestive of left bundle branch block with superimposed stress-induced cardiomyopathy. A repeat echocardiogram during that hospital stay performed 3 days after the initial study revealed improvement in the ejection fraction to 50 to 55%. The patient presented again earlier this month and was seen by our cardiology service on 05/01/2024 with noted hypertensive urgency, acute systolic heart failure, and ejection fraction in the range of 30 to 35% with findings once again suggestive of left bundle branch block with superimposed stress-induced cardiomyopathy with left ventricular apical ballooning pattern. Patient discharged on 05/03/2024 on medications including furosemide 20 mg daily, losartan 50 mg daily, metoprolol succinate 25 mg 3 times per day. Patient presented again last evening with complaints of shortness of breath and some chest tightness. Blood pressure was elevated on presentation this morning on presentation at 169/89, but not as high as it had been recently. Chest x-ray without overt pulmonary edema. Hyponatremia noted. Thus far she has received a total of 50 mg of IV furosemide her blood pressure on most recent check is much improved, with systolic blood pressure of just around 100 at the time of my assessment. The patient was lying completely supine. I was unable to interview her with the language line interpretation service due to technical issues, but her daughter joined us in conference call and provided translation. Patient feeling improved. Allergies Allergy/AdvReac Type Severity Reaction Status Date / Time No Known Allergies Allergy Verified 09/13/22 22:22 Home Medications Medication Instructions Recorded Confirmed Type atorvastatin 80 mg tablet 80 mg PO DAILY 05/17/24 05/17/24 History furosemide 20 mg tablet 20 mg PO DAILY 05/17/24 05/17/24 History isosorbide mononitrate 30 mg 30 mg PO DAILY 05/17/24 05/17/24 History tablet,extended release 24 hr losartan 50 mg tablet 50 mg PO DAILY 05/17/24 05/17/24 History metformin 500 mg tablet 500 mg PO BID 05/17/24 05/17/24 History metoprolol succinate 50 mg 50 mg PO BID 05/17/24 05/17/24 History tablet,extended release 24 hr omeprazole 40 mg capsule,delayed 40 mg PO BID 05/17/24 05/17/24 History release Patient History Medical History Takotsubo cardiomyopathy Coronary artery disease Social History Smoking Status: Never smoker Hx Alcohol Use: No Hx Substance Use: No Preferred Language: [facility] Communication Ability: Effective Communication Tools: Picture Board, Physical Gestures and Purchasing Supervisor Cards Carpenter And Joiner Required: Yes Beliefs That Will Affect Care: Voodoo Voodoo Beliefs: Vegetarian, no eggs, meat products, okay with dairy. marital status: Current Living Situation: Family Current Living Situation Comment: daughter, SCHUYLER, , grandchildren current occupational status: unemployed Feels Safe at Home: Yes Assistive Devices: None Review of Systems Review of Systems: Comprehensive review of systems not obtained due to language barrier Physical Exam Constitutional: WD/WN, vitals as above Respiratory: normal respiratory effort, lungs clear to auscultation Cardiovascular: RRR, no murmur, no edema Gastrointestinal (Abdomen): normal bowel sounds, soft, nontender, no hepatosplenomegaly Neurologic: PERRL, EOMI, accommodation nl, no face palsy, no dysarthria Results & Data Vital Signs (Past 12 Hours) Vital Signs Pulse Resp BP Pulse Ox O2 Del Method 05/17/24 13:00 62 18 122/73 94 Room Air 05/17/24 12:00 68 18 152/86 H 97 Room Air 05/17/24 10:32 77 20 183/98 H 98 Room Air 05/17/24 06:00 69 18 156/91 H 95 Room Air 05/17/24 04:30 66 16 161/84 H 95 Room Air 05/17/24 03:45 68 16 169/89 H 95 Room Air Laboratory Results Cardiac Enzymes 05/17/24 05/17/24 05/17/24 Range/Units 03:35 05:39 09:07 AST TNP 14 Troponin I High Sens 19.4 H 18.9 H 15.1 H (0-14) pg/ml B-Natriuretic Peptide 61 (0-100) pg/ml Coagulation 05/17/24 Range/Units 03:35 B-Natriuretic Peptide 61 (0-100) pg/ml CBC 05/17/24 05/17/24 Range/Units 03:35 09:07 WBC 12.90 H 10.14 (4.8-10.8) K/ul RBC 4.85 4.78 (4.20-5.40) M/uL Hgb 12.1 12.2 (12.0-16.0) g/dl Hct 37.3 35.9 L (37.0-47.0) % Plt Count 374 373 (130-400) K/uL Neut # (Auto) 6.06 (1.40-6.50) K/uL Lymph # (Auto) 3.07 (1.20-3.40) K/uL [place] # (Auto) 0.77 H (0.11-0.59) K/uL Eos # (Auto) 0.10 (0.00-0.50) K/uL Baso # (Auto) 0.06 (0.00-0.20) K/uL Comprehensive Metabolic Panel 08/05/17/24 05/17/24 Range/Units 03:35 05:39 09:07 Sodium 123 L 129 L (136-145) mmol/L Potassium TNP 4.4 4.1 Chloride 91 L 93 L (98-107) mmol/L Carbon Dioxide 23 26 (21-32) mmol/L BUN 12 10 (6-23) mg/dl Creatinine 0.50 L 0.42 L (0.6-1.2) mg/dl Glucose 122 H 118 H (70-99(Fasting)) mg/dl Calcium 9.3 9.5 (8.6-10.3) mg/dl AST TNP 14 ALT 20 (7-52) U/L Alkaline Phosphatase 103 (34-104) U/L Total Protein 7.6 (6.0-8.3) gm/dl Albumin 4.5 (3.4-5.0) gm/dl 05/17/24 Range/Units 11:45 Sodium 127 L (136-145) mmol/L Potassium 4.1 Chloride 91 L (98-107) mmol/L Carbon Dioxide 26 (21-32) mmol/L BUN 10 (6-23) mg/dl Creatinine 0.45 L (0.6-1.2) mg/dl Glucose 114 H (70-99(Fasting)) mg/dl Calcium 9.5 (8.6-10.3) mg/dl AST ALT (7-52) U/L Alkaline Phosphatase (34-104) U/L Total Protein (6.0-8.3) gm/dl Albumin (3.4-5.0) gm/dl Intake and Output 05/16/24 05/17/24 05/17/24 22:59 06:59 14:59 Other: Weight 82 kg Weight Measurement Method [facility] Patient Weight 05/18/24 06:59 Weight 82 kg Diagnostic Findings EKG tracing performed on presentation revealed sinus rhythm with left bundle branch block, QRS duration of 130 ms, relatively unchanged compared to tracings dating back to 2021
[2024-05-17] MEDS: ALUMINUM/MAGNESIUM SUSP 30 ML UDC PO STA (15:34)
[2024-05-17] MEDS: SIMETHICONE 80 MG CHEW PO PRN (20:45)
--- NOTE | 2024-05-17 20:56 | XRay Report ---
CERVICAL SPINE 4 VIEWS HISTORY: neck pain COMPARISON: None. FINDINGS: The cervical spine is visualized from C1 through the superior endplate of T1. There is no f racture. No subluxation. Disc spaces are preserved. Prevertebral soft tissues and the atlantodens in terval are intact. Carotid bifurcation calcifications are noted. Mild facet degenerative changes with in the cervical spine. IMPRESSION: 1. No fracture or subluxation within the cervical spine. 2. Mild facet degenerative changes within the cervical spine. 3. No significant disc space narrowing. ACT 112: Negative or not required by law. Electronically signed by: Kevin Galarza M.D. 05/17/2024 8:54 PM
[2024-05-18 06:36] LABS: BUN Creatinine Ratio 25.4 (10-20); Creatinine Clr Calc Pharmacy 88.7 ml/min; Est GFR (African American) 111.5 ml/min; Est GFR (Non-African American) 96.2 ml/min; Potassium 4.2 mmol/L (3.5-5.1)
[2024-05-18] MEDS: ENOXAPARIN INJ 40 MG/0.4 ML SYR SQ SCH (09:46)
[2024-05-18] MEDS: FUROSEMIDE 40 MG TAB PO SCH (09:47)
[2024-05-18] MEDS: INSULIN ASPART PER UNIT CHARGE SC SCH (10:01)
--- NOTE | 2024-05-18 10:02 | Nephrology Progress Note ---
Date of Service May 18, 2024 Assessment & Plan Admission and Anticipated Discharge Date Admission Date: May 17, 2024 Subjective Assessment & Plan (1) Hyponatremia: hyponatremia in the setting of pulmonary edema and history of systolic congestive heart failure. Given this we have to assume this is the primary cause and treat with IV Lasix for adequate diuresis. However her sodium has been somewhat low for the last few years and given this she most likely has some underlying SIADH also. But creatinine did go up very promptly from 123-129 with the use of IV Lasix. She then received D5 water briefly which dropped the sodium do 127 and now 128. At this time I would treat hyponatremia exclusively with fluid restriction to 50 oz per day low-salt diet and higher dose of oral Lasix. No need to use urea in her case as long as we are able to manage the hyponatremia with Lasix and fluid /salt restriction. renal function and k is normal. After talking with her about her diet and fluid --there is lot of room to improve salt/ fluid intake. (2) Acute systolic (congestive) heart failure: her last ejection fraction was only 30-35% on the echocardiogram done May 01, 2024. but now improved to 55%. She has history of takotsubo cardiomyopathy where she had sudden drop in ejection fraction followed by sudden improvement. So acting like that again this time also (3) Hypertensive urgency: extremely high blood pressure on presentation with pulmonary edema. her last ejection fraction was only 30-35% 2 weeks ago but now improved to 55% with IV Lasix blood pressure has come down a lot and now totaaly normal. Continue Current meds-- lasix 40 and Losartan 50 bid BB and Imdur. physical examination middle-aged female who speaks Beth. I can understand beth 100% but I can not speak. However I did communicate in jayson language with the patient. she is awake alert oriented x3 no respiratory distress at this time and lying in the bed in full supine position. mucous membranes moist neck is supple no JVD chest bilateral clear to auscultation CVS S1 and S2 regular no murmur rub or gallop heard abdomen is soft nontender. No costovertebral angle tenderness extremities shows no edema no skin rash Results & Data Vital Signs (Past 12 Hours) Vital Signs Temp Pulse Resp BP Pulse Ox O2 Del Method 05/18/24 07:47 36.6 C 57 L 18 114/69 94 Room Air 05/18/24 03:02 36.6 C 61 14 113/70 95 Room Air 05/17/24 23:04 36.8 C 73 16 114/66 96 Room Air
--- NOTE | 2024-05-18 14:42 | Cardiology Progress Note ---
Date of Service May 18, 2024 Assessment & Plan (1) Hypertensive urgency: (2) Acute hyponatremia: (3) Cardiomyopathy: Plan: * volume status improved. * repeat limited echo performed today, 05/18/2024, septal motion is abnormal consistent with left bundle branch block, the left ventricular wall motion is otherwise normal with ejection fraction in the range of 50 to 55%, improved compared to 30 to 35% noted on 05/01/2024 * Blood pressure is normal on her current regimen * Sodium is improving, but still low. * Nephrology input noted and appreciated, continue furosemide 40 mg p.o. daily. Continue remaining cardiac medications at their current doses including atorvastatin, Imdur, metoprolol succinate, losartan, amlodipine. * Continue Lovenox for DVT prophylaxis. * Cardiology to sign off. Please call over weekend with questions or concerns. Admission and Anticipated Discharge Date Admission Date: May 17, 2024 Subjective Pt seen in cardiology follow up. No CP or SOB. Telemetry reveals SR with LBBB, in the 60s Physical Exam Constitutional: WD/WN, vitals as above Respiratory: normal respiratory effort, lungs clear to auscultation Cardiovascular: RRR, no murmur, no edema Gastrointestinal (Abdomen): normal bowel sounds, soft, nontender, no hepatosplenomegaly Neurologic: PERRL, EOMI, accommodation nl, no face palsy, no dysarthria Results & Data Vital Signs (Past 12 Hours) Vital Signs Temp Pulse Resp BP Pulse Ox O2 Del Method 05/18/24 11:51 36.4 C L 18 120/68 95 Room Air 05/18/24 07:47 36.6 C 57 L 18 114/69 94 Room Air 05/18/24 03:02 36.6 C 61 14 113/70 95 Room Air Laboratory Results Cardiac Enzymes 05/17/24 Range/Units 15:11 Troponin I High Sens 13.6 (0-14) pg/ml Comprehensive Metabolic Panel 05/18/24 Range/Units 05:44 Sodium 128 L (136-145) mmol/L Potassium 4.2 (3.5-5.1) mmol/L Chloride 91 L (98-107) mmol/L Carbon Dioxide 27 (21-32) mmol/L BUN 17 (6-23) mg/dl Creatinine 0.67 (0.6-1.2) mg/dl Glucose 109 H (70-99(Fasting)) mg/dl Calcium 9.0 (8.6-10.3) mg/dl Intake and Output 05/17/24 05/18/24 05/18/24 22:59 06:59 14:59 Intake Total 450 / 450 Balance 450 / 450 Intake: Oral 450 / 450 Other: # Unmeasured Voids 1 1 Weight 83.7 kg Weight Measurement Method Built in [facility]
--- NOTE | 2024-05-18 15:32 | Discharge Summary ---
Date of Service May 18, 2024 Admission HPI Per Admitting Provider 58-year-old female with past medical history significant for type 2 diabetes, hypertension, history of stress-induced cardiomyopathy, hyperlipidemia, GERD, iron deficiency anemia, generalized anxiety disorder presents with Chest heaviness and shortness of breath. Patient was recently in the hospital with hypertensive urgency and acute respiratory failure with hypoxia with flash pulmonary edema secondary to acute systolic CHF and non-ST elevated LA and community-acquired pneumonia and hypertensive urgency. Acute CHF thought to be stress-induced cardiomyopathy. Echo showed EF of 30 to 35% with moderate to severe global hypokinesis of the left ventricle and moderate to severe concentric LVH. Improved after dose of IV Lasix. Beta-alvarado dose was increased. 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 And she was treated antibiotics for pneumonia. Patient was discharged on May 03. She was again in the ER on May 12 with chest heaviness and elevated blood pressure but after talking to the cardiology ER discharged patient home as medications were recently adjusted to follow as outpatient. She followed with cardiology on May 14, 2024 and there is a plan for repeat echo in 3 months. Patient presented with similar episodes couple of years ago and at the time initially echo showed EF of 30 to 39% thought to be stress-induced cardiomyopathy and few days later repeat echo EF improved. Patient is Beth speaking and son is in the room helped with H&P. As per son patient is taking her medication regularly and no excessive salt intake. Yesterday evening again patient blood pressure was in 200s. She was feeling dizzy. Having chest heaviness and shortness of breath which prompted him to bring her back to the hospital tonight. Patient states currently chest heaviness improved. Still feeling short of breath. No cough. No fevers. Appetite is okay. No headache. No nausea. No abdominal pain. Somewhat constipated. Micturating okay. Hemodynamics okay. Past medical history as mentioned above Past surgical history. Colonoscopy and EGD. Bilateral cataracts. Social history. . No smoking. No alcohol use. No drug use. Family history no family history on file Admission Exam Per Admitting Provider General-Not in distress. Head- atraumatic Eyes- PERRL. ENT- oropharynx clear Neck- supple, no JVD. Lungs- clear to auscultation mild bibasilar crackles, no wheezing Heart- regular rate and rhythm; no murmur, no gallop. Abdomen- normal bowel sounds, soft, nontender, no distension Extremities- no pretibial edema, no erythema seen. Neuro- alert, oriented ; PERRL, EOMI; no facial palsy; no dysarthria; moves extremities Principal Diagnosis Acute on chronic systolic CHF Stress-induced cardiomyopathy with recently echo showing EF of 30 to 35% Discharge Exam General-Not in distress. Head- atraumatic Eyes- PERRL. ENT- oropharynx clear Neck- supple, no JVD. Lungs- Bilateral clear breath sound Heart- regular rate and rhythm; no murmur, no gallop. Abdomen- normal bowel sounds, soft, nontender, no distension Extremities- no pretibial edema, no erythema seen. Neuro- alert, oriented ; PERRL, EOMI; no facial palsy; no dysarthria; moves extremities Discharge Data Allergies Allergy/AdvReac Type Severity Reaction Status Date / Time No Known Allergies Allergy Verified 09/13/22 22:22 Consultations 05/17/24 05:10 ED Decision to Admit Stat 05/17/24 08:41 Consult Cardiology Routine Consult Nephrology Routine Hospital Course (1) Acute systolic (congestive) heart failure: 58-year-old female with past medical history significant for type 2 diabetes, hypertension, history of stress-induced cardiomyopathy, hyperlipidemia, GERD, iron deficiency anemia, generalized anxiety disorder presents with Chest heaviness and shortness of breath. Patient was recently in the hospital with hypertensive urgency and acute respiratory failure with hypoxia with flash pulmonary edema secondary to acute systolic CHF and non-ST elevated LA and community-acquired pneumonia and hypertensive urgency. Acute CHF thought to be stress-induced cardiomyopathy. Echo showed EF of 30 to 35% with moderate to severe global hypokinesis of the left ventricle and moderate to severe concentric LVH. Improved after dose of IV Lasix. She was then discharged home on May 03. She was again in the ER on May 12 with chest heaviness and elevated blood pressure but after talking to the cardiology ER discharged patient home as medications were recently adjusted to follow as outpatient. She followed with cardiology on May 14, 2024 and there is a plan for repeat echo in 3 months. Patient presented with similar episodes couple of years ago and at the time initially echo showed EF of 30 to 39% thought to be stress-induced cardiomyopathy and few days later repeat echo EF improved. Patient found her BP to be elevated to SBP of 200s a day prior to admission. She reported feeling dizzy and started to feel short of breath which prompted her to come to ED. Acute on chronic systolic CHF Hypertensive urgency Hyponatremia Patient presented with elevated blood pressure, shortness of breath Chest x-ray concerning for mild pulmonary edema Serum sodium level was 123 Nephrology and cardiology were consulted for comanagement Patient was given IV diuretics with improvement in shortness of breath, serum sodium level. She was started on amlodipine for blood pressure control. Losartan frequency was increased to twice a day. Repeat echocardiogram showed improvement in EF; severe concentric LVH was seen. At discharge, patient was placed on increased dose of Lasix. She was also prescribed amlodipine 5 mg once a day, losartan 50 mg twice a day. Patient to follow-up with her primary care doctor and repeat BMP in 1 week. Patient needs to be on fluid restriction of 1500 cc and low-salt diet going forward. Discussed with the patient and family. Please note the above document was generated using voice recognition software. It may contain grammatical, syntax or spelling errors. Any formal questions or concerns about the content, text or information contained within the body of this dictation should be directly addressed to the provider for clarification Total Time Total Time Spent Total Time Spent (In Minutes): 45 Total Time Includes: Examination of the Patient, Discharge Planning, Medication Reconciliation, Communication With Other Providers and Other Discharge Plan Discharge Items Patient Disposition: Home - Self-Care Reason For Visit: chest pain, chf Discharge Diagnosis: Acute on chronic systolic CHF Hypertensive urgency Condition on Discharge: Good Activity: Resume your previous activity Non-emergency contact: Primary Care Provider Call non-emergency contact if: you have any medication questions and your symptoms worsen Follow-up/Referrals: Maritza Lyles MD [Primary Care Provider] - (Date & Time 05/24/2024 2:20 PM Provider Maritza Lyles MD Department General Internal Medicine [facility] ) Diet: Regular Fluids: 1500ml (6 cups) Addtl Attending Provider Instructions: You were admitted to the hospital due to high blood pressure and shortness of breath. You were seen by public health advisor and applications sales consultant during the hospitalization. Following changes have been made to your medication regimen: 1) start taking amlodipine 5 mg once a day in the morning. 2) increase dose of losartan from 50 mg once a day to twice a day ( morning and evening) 3) increase Lasix from 20 mg once a day to 40 mg once a day. A new prescription has been sent to your pharmacy. Please limit fluid intake( water, coffee, tea) to 1500 cc. Please take low-salt diet. Please measure blood pressure daily at home at the same time. Measure it in a sitting position with both feet on the ground and your arm rested. Please make a log of it. The dose of the medication might need to be decreased if you start to experience dizziness or dehydration. An appointment has been made with your primary care doctor on 24 May. Please obtain basic metabolic panel to check on your kidney function and electrolytes. Pending Studies at Discharge: No Stand-Alone Forms: My [facility] [employer], Smoking Cessation Medications and DC Order Prescriptions: New furosemide 40 mg Tablet 40 mg PO DAILY Qty: 30 0RF amlodipine [Norvasc] 5 mg Tablet 5 mg PO QAM Qty: 30 0RF Continued metformin 500 mg tablet 500 mg PO BID atorvastatin 80 mg tablet 80 mg PO DAILY isosorbide mononitrate 30 mg tablet extended release 24 hr 30 mg PO DAILY omeprazole 40 mg capsule,delayed release(DR/EC) 40 mg PO BID metoprolol succinate 50 mg tablet extended release 24 hr 50 mg PO BID Qty: 60 0RF Changed losartan 50 mg tablet 50 mg PO BID Qty: 60 0RF Discontinued furosemide 20 mg tablet 20 mg PO DAILY Discharge Orders: Discharge Order (Routine); Ordered 05/18/24 Ordered By: Pj Mcintyre Admission Data Admit Date/Time: 05/17/24 05:53 Attending Provider: Pj Mcintyre Admit Provider: Mikey Jones Primary Care Provider: Maritza Lyles Other Providers: Mikey Jones; Devon Quinn; Paz Schuler
[2024-05-18 16:15] VITALS: PULSE 65; RESP 20; TEMP 97.9; O2SAT 97
[2024-05-18 18:14] VITALS: BP 133/80
--- NOTE | 2024-05-18 22:08 | Electrocardiogram Report ---
Test Reason : Blood Pressure : */* mmHG Vent. Rate : 62 BPM Atrial Rate : 62 BPM P-R Int : 188 ms QRS Dur : 140 ms QT Int : 464 ms P-R-T Axes : 43 56 135 degrees QTcB Int : 470 ms Normal sinus rhythm Left bundle branch block Abnormal ECG When compared with ECG of 17-May-2024 03:31, QRS axis Shifted right Confirmed by Spenser Lewis ([id number]) on 05/18/2024 10:08:18 PM Referred By: REFERRED SELF Confirmed By: Spenser Lewis
--- NOTE | 2024-05-18 22:08 | Electrocardiogram Report ---
Test Reason : Blood Pressure : */* mmHG Vent. Rate : 75 BPM Atrial Rate : 75 BPM P-R Int : 168 ms QRS Dur : 138 ms QT Int : 404 ms P-R-T Axes : 67 -55 128 degrees QTcB Int : 451 ms Normal sinus rhythm Left axis deviation Left bundle branch block Abnormal ECG When compared with ECG of 12-May-2024 03:00, QRS axis Shifted left Confirmed by Spenser Lewis ([id number]) on 05/18/2024 10:07:34 PM Referred By: REFERRED SELF Confirmed By: Spenser Lewis
== END 2024-05-18 19:30 | disposition home or self-care (01) | DRG 280 ==
LOC: ED 03:08 → EDINP 05:53 → 2S 08:42